=== PATIENT | female | born 1965 | race Caucasian/White ===

== ENCOUNTER 2016-12-12 12:30 | Inpatient (IN) | payer OTHER ==
[~2016-12-12] VITALS: Ht 165.1 cm; Wt 118.7 kg
[~2016-12-12 12:30] MED LIST: ACET-1311 PO; BELI1INJ; BND25X PO; CALC500C3 PO; CALC500C70 PO; COLC0.6T54 PO; FAMO20TA11 PO; FLUT0.15 NAE; FLV1 PO; KFL500 PO; LEVO1TAB35 PO; LOSA1TAB PO; MULT-513 PO; PRED-301 PO; PREDNISONE TAPER PO; SALI0.6510 NAE; SERT-234 PO; TRAM-10 PO; WARF7.5T PO
[2016-12-12 13:33] VITALS: BP 159/99; PULSE 99; TEMP 36.7; Ht 165.1 cm; Wt 118.7 kg
[2016-12-12 13:43] VITALS: BP 159/99; PULSE 99; TEMP 36.7; O2SAT 99
--- NOTE | 2016-12-12 15:18 | Medical Student: [facility] ---
Med Student History & Physical Date & Time of Service: Dec 12, 2016 at 14:43 Chief Complaint: Bilat Le Ulcers Primary Care Physician: Alisson Bender M.D. (MEDICAL) History of Present Illness Source: patient, clinic records, hospital records Mrs. Nguyen is a 51yo female with a history of systemic lupus erythematosus, protein S deficiency on long-term warfarin therapy, CKD stage 3, and obesity who presents with persistent bilateral lower leg venous stasis ulcers with new discharge and bilateral foot cellulitis L>R. She presents as a direct admission from the wound care clinic where she was seeing Dr. Devi. She has a long history of nonhealing leg ulcers though her current ulcers have persisted for approx 1.5 years--much longer than usual. In the past 2 days, her wounds have developed increased discharge and an odor which prompted her admission today. Additionally, she has developed some redness on the dorsum of both her feet. She reports feeling cold all the time. She has had diarrhea fo the past 2 days. Denies fever, lightheadedness, cp, sob, n/v, numbness, tingling. Past Medical/Surgical History PMH 1. SLE 2. Protein S deficiency 3. Hx of ITP 4. CKD stage 3 5. GERD 6. Depression 7. Morbid obesity 8. Anemia 9. Hx of DVT PSH 1. IVC filter 2. Cholecystectomy Social History Smoking Status: Never Smoker Drug Use: none Marital Status: single Housing status: lives with family Occupational Status: disabled Immunizations History of Influenza Vaccine: Yes Influenza Vaccine Date: Feb 19, 2015 History of Tetanus Vaccine?: Yes Tetanus Immunization Date: September 30, 2013 History of Pneumococcal: No Pneumococcal Date: Mar 09, 2006 History of Hepatitis B Vaccine: No Allergies Coded Allergies: Heparin (Verified Allergy, Severe, HIT R/O from last hospital admission - rather was dx w/ ITP, 09/01/16) HIT antibody screen was positive however LONA was negative per H&P Vancomycin (Verified Allergy, Intermediate, RASH, 09/01/16) Tetracycline (Verified Allergy, Mild, RASH, PRURITIS, 09/01/16) Amlodipine (Verified Allergy, Unknown, 09/01/16) Bacitracin (Verified Allergy, Unknown, 09/01/16) Doxycycline (Verified Allergy, Unknown, UNKNOWN, 09/01/16) Polymyxin B (Verified Allergy, Unknown, 09/01/16) Medications Acetaminophen (Tylenol), 650 MG PO Q6H PRN for Pain Belimumab (Benlysta) Calcium Carbonate (Tums), 500 MG PO DAILY Calcium/Vitamin D (Os-Marco A 500 Plus D), 1 TAB PO DAILY Cephalexin Monohydrate (Cephalexin), 500 MG PO Q6 Colchicine (Colchicine), 0.6 MG PO BID Diphenhydramine HCl (Diphenhydramine HCl), 25 MG PO Q6H PRN for itchiness Famotidine (Pepcid), 20 MG PO BID Fluticasone Propionate (Nasal) (Flonase Allergy Relief), 2 SPRAYS SHELLY DAILY Folic Acid (Folvite *), 1 MG PO DAILY Levofloxacin (Levaquin), 750 MG PO DAILY Losartan Potassium (Cozaar), 50 MG PO DAILY Multivitamins/Minerals (Mvi With Minerals), 1 TAB PO DAILY Prednisone (Prednisone), 5 MG PO DAILY Saline (Sylvarena Nasal [place]), 2 SPRAYS SHELLY UD PRN for nasal dryness or congestion Sertraline (Zoloft), 100 MG PO DAILY Tramadol (Ultram), 50 MG PO Q8H PRN for Pain Warfarin Sodium (Coumadin), 1 TAB PO UD [Prednisone Taper], 50 MG PO DIRECTED Review of Systems Constitutional: + chills, No fever, No weakness Eyes: No eye pain, No diplopia ENT: No sore throat, No trouble swallowing Respiratory: No cough, No wheezing, No shortness of breath Cardiovascular: No chest pain, No palpitations Abdomen: + diarrhea, No pain, No nausea, No vomiting Musculoskeletal: + swelling, + calf pain Genitourinary - Female: No dysuria, No urinary frequency, No urinary urgency, No urinary incontinence Neurologic: No weakness, No numbness/tingling Integumentary: + new/changing skin lesions, No bleeding Physical Exam Vital Signs (24 Hours) Date Time Temp Pulse Resp B/P (MAP) Pulse Ox O2 Delivery O2 Flow Rate FiO2 12/12/16 13:43 36.7 99 20 159/99 (119) 99 Room Air 12/12/16 13:33 36.7 99 20 159/99 Room Air General Appearance: + mild distress (laying under multiple blankets ), + obese Head: normocephalic, atraumatic Eyes: normal inspection, PERRL, EOMI ENT: hearing grossly normal, pharynx normal, + pertinent finding (poor dentition) Neck: supple, no adenopathy, no carotid bruits Respiratory/Chest: lungs clear, normal breath sounds, no respiratory distress, no accessory muscle use Cardiovascular: regular rate, rhythm, no gallop, no murmur, normal peripheral pulses Abdomen/GI: normal bowel sounds, non tender, soft Extremities/Musculoskelatal: normal range of motion, + calf tenderness, + pedal edema Neurologic/Psych: crystal mounter II-XII nml as tested, no motor/sensory deficits, alert, normal mood/affect, oriented x 3 Skin: + pertinent finding (BLE tubigrips over leg ulcers, L>R red reticular coloration on dorsum of feet, violaceous reticular pattern bilateral toes) Impression Assessment and Plan This is a 51yo female with a history of systemic lupus erythematosus, protein S deficiency on long-term warfarin therapy, CKD stage 3, and obesity who presents with persistent bilateral lower leg venous stasis ulcers with new discharge and bilateral foot cellulitis L>R. She will need IV antibiotics and continued monitoring of her medical conditions. Plan: Precautions: Fall, bleeding 1. bilateral lower extremity nonhealing venous stasis ulcers and new cellulitis in the context of SLE -admit to med/surg -OOB as tolerated -elevate feet -vitals qshift -renal dosing for IV vancomycin w/ benadryll pretreatment -diphenhydramine 25mg PO q6h prn -continue levofloxacin 750mg PO daily -AM CBC w/ diff -AM BMP -AM renal profile -vancomycin trough level 12/14/16 -consult ID -PRN tramadol 50mg PO q8h prn moderate pain -PRN tylenol 650mg PO q6h prn mild pain 2. SLE -belimumab 120mg ing daily -prednisone 5mg PO daily -losartan potassium 50mg PO daily 3. Protein S deficiency -Warfarin 7.5mg PO daily -AM PT/INR 4. Depression -sertraline 100mg PO daily 5. FEN/GI -folic acid 1mg PO daily -calcium/vitamin D -famotidine 20mg PO BID -multivitamin 6. DVT prophylaxis -Warfarin as above 7. Disposition -Location: home -Date: TBD Level of Care Med/Surg Advanced Directives Existing Living Will: No Existing Power of Outside Sales Manager: No Resuscitation Status FULL RESUSCITATION DVT Prophylaxis warfarin (Coumadin) Social Service Consult None Apply
[2016-12-12 15:59] VITALS: BP 165/98; PULSE 103; TEMP 36.8; O2SAT 98
[2016-12-12] MEDS ORDERED: ONDANSETRON INJ 2 MG/ML 2 ML VIAL IV PRN (17:15)
[2016-12-12] MEDS ORDERED: MAGNESIUM HYDROXIDE SUSP 30 ML UDC PO PRN (17:15)
[2016-12-12] MEDS ORDERED: ALUMINUM/MAGNESIUM/SIMETH (MAALOX MAX) 30 ML UDC PO PRN (17:15)
[2016-12-12] MEDS ORDERED: ACETAMINOPHEN 325 MG TAB PO PRN (17:15)
[2016-12-12] MEDS: TRAMADOL HCL 50 MG TAB PO PRN (17:32)
--- NOTE | 2016-12-12 18:00 | History and Physical ---
History & Physical Date & Time of Service: Dec 12, 2016 at 17:52 Chief Complaint: Bilat Le Ulcers Primary Care Physician: Alisson Bender M.D. (MEDICAL) History of Present Illness Source: patient, clinic records, hospital records This patient is a 51-year-old female with a history of lupus, chronic venous stasis and DVT that was directly admitted to the hospital from wound care office today with complaints of likely cellulitis of the legs. The patient has chronic wounds on her legs. She follows with wound care and infectious disease regularly. She noticed a foul smelling drainage from her legs approximately 1 week ago. She has been on Levaquin and Keflex with no relief. She has felt feverish with chills over the last few days. She denies any other associated symptoms such as headache, nausea or joint pain. Past Medical/Surgical History Medical Problems: (1) Anemia Status: Chronic (2) Benign hypertension Status: Chronic (3) Cellulitis Permanent Comment: b/L LOWER EXTEMITIES Status: Chronic (4) CKD (chronic kidney disease), stage III Status: Chronic (5) Depression Status: Chronic (6) GERD (gastroesophageal reflux disease) Status: Chronic (7) History of - deep vein thrombosis Permanent Comment: on chronic anticoagulation therapy, s/p IVC filter Status: Resolved (8) History of - pulmonary embolus Permanent Comment: On chronic anticoagulation therapy Status: Resolved (9) History of idiopathic thrombocytopenic purpura Status: Chronic (10) History of MRSA Status: Resolved (11) Hypercoagulable state Permanent Comment: protein C deficiency, positive phospholipid AB syndrome, positive lupus 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 Status: Chronic (12) 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: 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 (13) Morbid obesity Status: Chronic (14) Systemic lupus Status: Chronic (15) Systemic lupus erythematosus Status: Chronic (16) Venous stasis ulcers Permanent Comment: with recurrent cellulitis Status: Chronic Surgical Problems: (1) H/O exploratory laparotomy Status: Chronic (2) H/O hernia repair Status: Chronic (3) History of cholecystectomy Status: Chronic (4) S/P appendectomy Status: Chronic (5) S/P insertion of IVC (inferior vena caval) filter Status: Chronic (6) S/p DELMAR with right salpingo-oophorectomy Status: Chronic (7) Status post resection pelvic mass (mucinous cystadenoma ovary) Permanent Comment: [facility] [place] 02/01/14 Status: Chronic Family History Blood clots MOTHER (DVT) Diabetes mellitus FH: cancer MOTHER (colon CA) Heart disease Hypertension Social History Smoking Status: Never Smoker Smokeless Tobacco Use: No Alcohol Use: none Drug Use: none Marital Status: single Housing status: lives with family Occupational Status: disabled Immunizations History of Influenza Vaccine: Yes Influenza Vaccine Date: Feb 19, 2015 History of Tetanus Vaccine?: Yes Tetanus Immunization Date: September 30, 2013 History of Pneumococcal: No Pneumococcal Date: Mar 09, 2006 History of Hepatitis B Vaccine: No Multi-Drug Resistant Organisms History of MDRO: Yes Type of MDRO: MRSA Allergies Coded Allergies: Heparin (Verified Allergy, Severe, HIT R/O from last hospital admission - rather was dx w/ ITP, 09/01/16) HIT antibody screen was positive however LONA was negative per H&P Vancomycin (Verified Allergy, Intermediate, RASH, 09/01/16) Tetracycline (Verified Allergy, Mild, RASH, PRURITIS, 09/01/16) Amlodipine (Verified Allergy, Unknown, 09/01/16) Bacitracin (Verified Allergy, Unknown, 09/01/16) Doxycycline (Verified Allergy, Unknown, UNKNOWN, 09/01/16) Polymyxin B (Verified Allergy, Unknown, 09/01/16) Home Medications Scheduled Calcium Carbonate (Tums), 500 MG PO DAILY Calcium/Vitamin D (Os-Marco A 500 Plus D), 1 TAB PO DAILY Cephalexin Monohydrate (Cephalexin), 500 MG PO Q6 Colchicine (Colchicine), 0.6 MG PO BID Famotidine (Pepcid), 20 MG PO BID Fluticasone Propionate (Nasal) (Flonase Allergy Relief), 2 SPRAYS SHELLY DAILY Folic Acid (Folvite *), 1 MG PO DAILY Levofloxacin (Levaquin), 750 MG PO DAILY Losartan Potassium (Cozaar), 50 MG PO DAILY Multivitamins/Minerals (Mvi With Minerals), 1 TAB PO DAILY Prednisone (Prednisone), 5 MG PO DAILY Sertraline (Zoloft), 100 MG PO DAILY Warfarin Sodium (Coumadin), 1 TAB PO UD [Prednisone Taper], 50 MG PO DIRECTED Scheduled PRN Acetaminophen (Tylenol), 650 MG PO Q6H PRN for Pain Diphenhydramine HCl (Diphenhydramine HCl), 25 MG PO Q6H PRN for itchiness Saline (Pinal Nasal [place]), 2 SPRAYS SHELLY UD PRN for nasal dryness or congestion Tramadol (Ultram), 50 MG PO Q8H PRN for Pain Miscellaneous Medications Belimumab (Benlysta) Review of Systems 10 system review performed and negative unless noted in HPI or below Physical Exam Vital Signs Date Time Temp Pulse Resp B/P (MAP) Pulse Ox O2 Delivery O2 Flow Rate FiO2 12/12/16 16:00 Room Air 12/12/16 15:59 36.8 103 20 165/98 (120) 98 Room Air 12/12/16 13:43 36.7 99 20 159/99 (119) 99 Room Air 12/12/16 13:33 36.7 99 20 159/99 Room Air General Appearance: + mild distress (tearful) Head: normocephalic Eyes: EOMI Neck: no JVD Respiratory/Chest: + pertinent finding (few crackles at the left base.) Cardiovascular: regular rate, rhythm Abdomen/GI: normal bowel sounds, non tender, soft Extremities/Musculoskelatal: + pertinent finding (legs have Raul bandage in place. DP pulse +2 bilaterally.) Neurologic/Psych: no motor/sensory deficits, oriented x 3 Skin: warm/dry Diagnostics Laboratory Results Results Past 24 Hours Test 12/12/16 17:05 Range/Units Impression Assessment and Plan 51-year-old female with a history of chronic venous stasis and frequent bouts of cellulitis directly admitted to the hospital today from the wound care clinic with cellulitis failing outpatient therapy on Levaquin and Keflex. Bilateral lower extremity cellulitis/wound infection -Admit to medical floor -Begin broad-spectrum antibiotics with daptomycin and Zosyn -Wound care and ID consult -Follow CBC -Since she has been on ABX, I do not think blood cx will have anything to add to the workup. -Ultram for mild to moderate pain. Morphine for severe pain. History of SLE/protein S deficiency/DVT/PE -Continue outpatient dosing of warfarin 7.5 mg daily -Follow PT/INR especially with the use of antibiotics Chronic kidney disease stage III -Avoid nephrotoxic agents and follow PRP GERD -Continue Pepcid 20 mg twice daily Hypertension -Continue Cozaar 50 mg daily -Hydralazine 10 mg IV q 6 hr PRN depression -Continue Zoloft 100 mg daily DVT prophylaxis -Warfarin -No teds/SCDs secondary cellulitis CODE STATUS -LEVEL I FULL CODE Attending Addendum: I have physically seen and examined this patient, have directed the physician assistants medical activities, and agree with the H&P as noted above with the following exceptions: NONE The patient is awake, well-developed and adequately nourished, alert and oriented 3, normocephalic and atraumatic, lying in bed and in no acute distress. HEENT--PERRL, EOMI, mucous membranes and oropharynx dry. Neck--supple, no JVD or bruits, thyroid normal, trachea midline, no adenopathy. Heart--normal S1 and S2, no extra beats, no murmurs, rubs or gallops. Lungs--clear bilaterally with good air movement, no respiratory distress, no accessory muscle use. Abdomen--normal bowel sounds and soft, nontender and nondistended, no hernias or masses, no organomegaly. Extremities/Dermatologic--Raul Wrap bilateral lower extremities changed this a.m. at Wound Care Clinic. Pitting edema bilaterally. Neurologic--cranial nerves II through XII grossly intact, motor and sensory examination normal. Rheumatologic--normal range of motion, nontender, muscles and joints. Psychiatric--normal affect. Assessment and Plan: 1. Bilateral lower extremity venous stasis ulcers-- Admitted to the medical floor. Place on daptomycin IV and Zosyn IV. Consult Dr. Devi from Wound Care Clinic and Dr. Krishnan from Infectious Disease. Monitor fluid status. Lasix as needed. 2. SLE/protein S deficiency/DVT/PE-- Continue current dosing of warfarin 7.5 mg by mouth daily. Follow-up PT/INR closely as patient will be on IV antibiotics. Level of Care Med/Surg Advanced Directives Existing Advance Directive: No Existing Living Will: No Existing Power of Metrologist: No Resuscitation Status FULL RESUSCITATION VTE Prophylaxis VTE Risk Assessment Done? Y/N: Yes Risk Level: Low Given or contraindicated: Warfarin (Coumadin)
[2016-12-12] MEDS ORDERED: DAPTOmycin IV 500 MG in SODIUM CHLORIDE 0.9% 50ML 50 ML IV SCH (19:00)
[2016-12-12 19:09] LABS: BASO % 0.3 %; BASO ABS # 0.02 K/uL (0-0.2); COMPLETE YES; EOS % 0.1 %; HEMATOCRIT 38.3 % (37-47); IG% 0.1 %; LYMPH % 19.4 %; LYMPH ABS # 1.35 K/uL (1.2-3.4); MEAN CELL VOLUME 83.3 fL (80-100); MEAN CORPUSCULAR HEMOGLOBIN 27.2 pg (25-34); MEAN CORPUSCULAR HGB CONC 32.6 g/dl (32-36); MEAN PLATELET VOLUME 8.8 fL (7.4-10.4); MONO % 8.9 %; NEUT % 71.2 %; PLATELET COUNT 276 K/uL (130-400); WHITE BLOOD COUNT 6.97 K/uL (4.8-10.8)
[2016-12-12 19:20] LABS: PROTHROMBIN TIME (PATIENT) 11.1 SECONDS (9.0-12.0)
[2016-12-12] MEDS ORDERED: WARFARIN SOD 7.5 MG TAB PO ONE (19:45)
[2016-12-12] MEDS ORDERED: PIPERACILL/TAZOBAC CONSULT ACTIVE PRN (19:45)
[2016-12-12 19:52] LABS: ALB/GLOB RATIO 0.8 (0.9-2); BUN/CREATININE RATIO 13.6 (10-20); CALCIUM 9.4 mg/dl (8.5-10.1); CREATININE 1.2 mg/dl (0.60-1.20); POTASSIUM 4.3 mmol/L (3.5-5.1)
[2016-12-12] MEDS ORDERED: PIPERACILL/TAZOBAC IV 4.5 GM in DEXTROSE 5% 100ML IV ONE (20:00)
[2016-12-12] MEDS: COLCHICINE 0.6 MG TAB PO SCH (20:09)
[2016-12-12] MEDS: FAMOTIDINE 20 MG TAB PO SCH (20:09)
[2016-12-12] MEDS ORDERED: PIPERACILL/TAZOBAC IV 3.375 GM in DEXTROSE 5% 100ML 100 ML IV SCH (22:00)
[2016-12-12 23:04] VITALS: BP 154/89; PULSE 93; TEMP 37.1; O2SAT 99
[2016-12-13] MEDS: PIPERACILL/TAZOBAC IV 4.5 GM in DEXTROSE 5% 100ML IV SCH ×3 (01:55→17:42)
[2016-12-13] MEDS: TRAMADOL HCL 50 MG TAB PO PRN ×2 (02:04→12:39)
[2016-12-13 07:12] LABS: PROTHROMBIN TIME (PATIENT) 11.1 SECONDS (9.0-12.0)
[2016-12-13 07:28] LABS: BUN/CREATININE RATIO 16.4 (10-20); CREATININE 0.97 mg/dl (0.60-1.20); POTASSIUM 4.3 mmol/L (3.5-5.1)
[2016-12-13 07:31] VITALS: BP 118/81; PULSE 89; TEMP 36.7; O2SAT 96
[2016-12-13 07:40] LABS: BASO % 0.5 %; BASO ABS # 0.02 K/uL (0-0.2); COMPLETE YES; EOS % 0.2 %; HEMATOCRIT 36.3 % (37-47); IG% 1.2 %; LYMPH % 12.4 %; MEAN CELL VOLUME 82.9 fL (80-100); MEAN CORPUSCULAR HEMOGLOBIN 26.3 pg (25-34); MEAN CORPUSCULAR HGB CONC 31.7 g/dl (32-36); MONO % 11.4 %; NEUT % 74.3 %; PLATELET COUNT 229 K/uL (130-400); RED BLOOD COUNT 4.38 M/uL (4.2-5.4); WHITE BLOOD COUNT 4.03 K/uL (4.8-10.8)
[2016-12-13] MEDS: CEROVITE ADV FORMULA TAB PO SCH (08:19)
[2016-12-13] MEDS: LOSARTAN POTASSIUM 50 MG TAB PO SCH (08:19)
[2016-12-13] MEDS: SERTRALINE HCL 100 MG TAB PO SCH (08:19)
[2016-12-13] MEDS: COLCHICINE 0.6 MG TAB PO SCH ×2 (08:19→19:45)
[2016-12-13] MEDS: FAMOTIDINE 20 MG TAB PO SCH ×2 (08:20→19:45)
[2016-12-13] MEDS: MoRPHine SULFATE 4 MG/ML 1 ML CARP\\VIAL IV PRN ×2 (08:25→19:53)
--- NOTE | 2016-12-13 09:41 | Progress Note ---
Progress Note Date of Service Dec 13, 2016. Progress Note Id Consult Dictated # [id number] A/P: 1. LE wounds, chronic -continue abx, suggest wound culture -continue wound care -will follow, thank you
--- NOTE | 2016-12-13 10:10 | INFECT. DISEASE CONSULTATION ---
DATE OF CONSULTATION: 12/13/2016 DATE OF CONSULTATION: 12/13/2016 REQUESTING PHYSICIAN: Dr. Larsen. HISTORY OF PRESENT ILLNESS: This is a 51-year-old female who is seen regularly at the wound center by infectious diseases who was admitted from the wound center yesterday due to worsening lower extremity wounds. Per the H&P she has recently been on Levaquin and Keflex with little response. She states she noticed increased weeping and pain in her legs. For this reason, she was sent to the Emergency Room. She was started on Zosyn and daptomycin in the ER and appears to be tolerating these well. She denies any fevers or chills at home. She has been afebrile since admission. White blood cell count is normal. No micro has been obtained at this admission. On my examination, she is without complaint. She denies cough, chest pain, shortness of breath, nausea, vomiting, diarrhea or abdominal pain. She has no urinary complaints. She does admit to increased weeping in the legs. She did just have pain medication prior to my examination. All remaining review of systems are reviewed and are unremarkable. PAST MEDICAL HISTORY: Significant for anemia, hypertension, lower extremity wounds, chronic kidney disease, depression, GERD, DVT, PE, morbid obesity, lupus. PAST SURGICAL HISTORY: Significant for ex-lap hernia repair, cholecystectomy, appendectomy, IVC filter placement, hysterectomy with right oophorectomy, pelvic mass removal. FAMILY HISTORY: Noncontributory. SOCIAL HISTORY: Negative for tobacco use, alcohol use or drug use. She denies any recent sick contacts. ALLERGIES: SHE HAS MULTIPLE ALLERGIES INCLUDING HEPARIN, VANCOMYCIN, TETRACYCLINE, AMLODIPINE, BACITRACIN, DOXYCYCLINE, POLYMYXIN B. CURRENT MEDICATIONS: Include Coumadin, Benadryl, folic acid, Cozaar, multivitamins, prednisone, Zoloft, Zosyn, colchicine, Pepcid, daptomycin, morphine, ultram, Tylenol, Maalox, milk of magnesia and Zofran. PHYSICAL EXAMINATION: VITAL SIGNS: She is afebrile, pulse 89, respiratory rate is 20, blood pressure is 118/81, oxygen saturation is 96-99% on room air. GENERAL: She is awake, alert and oriented x3. She is in no acute distress. HEAD, EYES, EARS, NOSE, AND THROAT: Mucous membranes are moist. Extraocular muscles are intact. Dentition is poor. HEART: Regular. LUNGS: Clear bilaterally. ABDOMEN: Soft, nontender, nondistended. EXTREMITIES: Lower extremity dressings do have weeping. There is no bleeding or purulent drainage. There is no surrounding erythema or warmth. LABORATORY STUDIES: CBC reveals a white blood cell count of 4.0, hemoglobin 11.5 and platelets are 229. Chemistry panel reveals a sodium of 137, potassium 4.3, chloride 108, bicarb 23, BUN 16, creatinine 0.9, glucose is 91. There is no imaging or micro to review. ASSESSMENT AND PLAN: Lower extremity wounds secondary to lupus and/or nonhealing ulcerations. She will be continued on intravenous antibiotics. A wound culture should be obtained. We will follow along with you. Thank you for this consultation.
[2016-12-13 15:36] VITALS: BP 110/73; PULSE 82; TEMP 36.8; O2SAT 97
[2016-12-13] MEDS: WARFARIN PO SCH ×2 (16:16)
[2016-12-13] MEDS: DAPTOmycin IV 500 MG in SODIUM CHLORIDE 0.9% 50ML 50 ML IV SCH (16:16)
--- NOTE | 2016-12-13 17:52 | Progress Note ---
Internal Med Progress Note Date of Service: Dec 13, 2016. Provider Documentation: SUBJECTIVE: sitting up finishing dinner legs are mildly painful , but tolerable at present no fever or chills OBJECTIVE: Vital Signs-as noted below Exam: General-no sign of distress Eyes-sclera non icteric ENT-NAD Neck-no JVD Lungs-CTA Heart-regular S1/S2 Abdomen-soft, non tender Extremities-bilateral lower ext non healing infected wound , bandaged Neuro-no focal deficit Lab data as noted below. ASSESSMENT & PLAN: Bilateral lower extremity cellulitis/wound infection -sent form wound clinic has chronic non healing wound wound culture obtained at the clinic on 12/12/16 : rt lower ext : gram negative bacilli , staph isolation and sensitivity pending prior wound culture : 10/02/16 Serratia Marcescens -sensitive to Cipro/Invanz /Zosyn Staph MSSA -sensitive to Vanco /Daptomycin /Bactrim resistant to Clindamycin -cont broad-spectrum antibiotics with daptomycin and Zosyn pending final culture report -appreciate ID consult -Wound care consulted History of SLE/protein S deficiency/DVT/PE -Continue outpatient dosing of warfarin 7.5 mg daily -Follow PT/INR Chronic kidney disease stage III -Avoid nephrotoxic agents and follow PRP GERD -Continue Pepcid 20 mg twice daily Hypertension -Continue Cozaar 50 mg daily -Hydralazine 10 mg IV q 6 hr PRN depression -Continue Zoloft 100 mg daily DVT prophylaxis -Warfarin -No teds/SCDs secondary cellulitis CODE STATUS -LEVEL I FULL CODE DISPOSITION discharge home when medically stable will need continued home health nurse for wound care continued follow up at with wound clinic medicine follow up with Dr Bender Vital Signs: Date Time Temp Pulse Resp B/P (MAP) Pulse Ox O2 Delivery O2 Flow Rate FiO2 12/13/16 15:36 36.8 82 18 110/73 (85) 97 Room Air 12/13/16 15:31 Room Air 12/13/16 08:08 Room Air 12/13/16 07:31 36.7 89 20 118/81 (93) 96 Room Air 12/13/16 00:00 Room Air 12/12/16 23:04 37.1 93 20 154/89 (110) 99 Room Air Lab Results: Results Past 24 Hours Test 12/12/16 18:56 12/13/16 06:47 Range/Units White Blood Count 6.97 4.03 4.8-10.8 K/uL Red Blood Count 4.60 4.38 4.2-5.4 M/uL Hemoglobin 12.5 11.5 12.0-16.0 g/dL Hematocrit 38.3 36.3 37-47 % Mean Corpuscular Volume 83.3 82.9 80-100 fL Mean Corpuscular Hemoglobin 27.2 26.3 25-34 pg Mean Corpuscular Hemoglobin Concent 32.6 31.7 32-36 g/dl Platelet Count 276 229 130-400 K/uL Mean Platelet Volume 8.8 9.0 7.4-10.4 fL Neutrophils (%) (Auto) 71.2 74.3 % Lymphocytes (%) (Auto) 19.4 12.4 % Monocytes (%) (Auto) 8.9 11.4 % Eosinophils (%) (Auto) 0.1 0.2 % Basophils (%) (Auto) 0.3 0.5 % Neutrophils # (Auto) 4.96 2.99 1.4-6.5 K/uL Lymphocytes # (Auto) 1.35 0.50 1.2-3.4 K/uL Monocytes # (Auto) 0.62 0.46 0.11-0.59 K/uL Eosinophils # (Auto) 0.01 0.01 0-0.5 K/uL Basophils # (Auto) 0.02 0.02 0-0.2 K/uL RDW Standard Deviation 48.7 48.4 36.4-46.3 fL RDW Coefficient of Variation 16.1 15.9 11.5-14.5 % Immature Granulocyte % (Auto) 0.1 1.2 % Immature Granulocyte # (Auto) 0.01 0.05 0.00-0.02 K/uL Prothrombin Time 11.1 11.1 9.0-12.0 SECONDS Prothromb Time International Ratio 1.0 1.0 0.9-1.1 Sodium Level 137 137 136-145 mmol/L Potassium Level 4.3 4.3 3.5-5.1 mmol/L Chloride Level 107 108 98-107 mmol/L Carbon Dioxide Level 23 23 21-32 mmol/L Anion Gap 7.0 6.0 3-11 mmol/L Blood Urea Nitrogen 16 16 7-18 mg/dl Creatinine 1.20 0.97 0.60-1.20 mg/dl Est Creatinine Clear Calc Drug Dose 73.1 90.5 ml/min Estimated GFR () 61.5 79.5 Estimated GFR (Non- 53.0 68.6 BUN/Creatinine Ratio 13.6 16.4 10-20 Random Glucose 138 91 70-99 mg/dl Calcium Level 9.4 9.0 8.5-10.1 mg/dl Total Bilirubin 0.3 0.2-1 mg/dl Aspartate Amino Transf (AST/SGOT) 11 15-37 U/L Alanine Aminotransferase (ALT/SGPT) 22 12-78 U/L Alkaline Phosphatase 72 45-117 U/L Total Protein 7.6 6.4-8.2 gm/dl Albumin 3.3 3.4-5.0 gm/dl Globulin 4.3 2.5-4.0 gm/dl Albumin/Globulin Ratio 0.8 0.9-2
[2016-12-13 23:30] VITALS: BP 112/74; PULSE 82; TEMP 36.9; O2SAT 97
[2016-12-14] MEDS: TRAMADOL HCL 50 MG TAB PO PRN ×2 (01:34→15:07)
[2016-12-14] MEDS: PIPERACILL/TAZOBAC IV 4.5 GM in DEXTROSE 5% 100ML IV SCH ×3 (01:35→17:48)
[2016-12-14] MEDS: MoRPHine SULFATE 4 MG/ML 1 ML CARP\\VIAL IV PRN ×3 (06:19→20:55)
[2016-12-14 06:24] LABS: BASO % 0.7 %; BASO ABS # 0.02 K/uL (0-0.2); COMPLETE YES; EOS % 0.3 %; HEMATOCRIT 36.7 % (37-47); IG% 0.3 %; LYMPH % 34.4 %; LYMPH ABS # 1.01 K/uL (1.2-3.4); MEAN CELL VOLUME 84.2 fL (80-100); MEAN CORPUSCULAR HEMOGLOBIN 26.4 pg (25-34); MEAN CORPUSCULAR HGB CONC 31.3 g/dl (32-36); MEAN PLATELET VOLUME 8.8 fL (7.4-10.4); NEUT % 45.3 %; PLATELET COUNT 271 K/uL (130-400); RED BLOOD COUNT 4.36 M/uL (4.2-5.4); WHITE BLOOD COUNT 2.94 K/uL (4.8-10.8)
[2016-12-14 06:32] LABS: INR 1.1 (0.9-1.1); PROTHROMBIN TIME (PATIENT) 11.8 SECONDS (9.0-12.0)
[2016-12-14 06:59] LABS: BUN/CREATININE RATIO 16.4 (10-20); CALCIUM 9.2 mg/dl (8.5-10.1); POTASSIUM 4.2 mmol/L (3.5-5.1)
[2016-12-14 07:58] VITALS: BP 125/85; PULSE 78; TEMP 36.7; O2SAT 95
[2016-12-14] MEDS: CEROVITE ADV FORMULA TAB PO SCH (08:16)
[2016-12-14] MEDS: SERTRALINE HCL 100 MG TAB PO SCH (08:16)
[2016-12-14] MEDS: LOSARTAN POTASSIUM 50 MG TAB PO SCH (08:17)
[2016-12-14] MEDS: COLCHICINE 0.6 MG TAB PO SCH ×2 (08:17→20:48)
[2016-12-14] MEDS: FAMOTIDINE 20 MG TAB PO SCH ×2 (08:17→20:48)
--- NOTE | 2016-12-14 15:46 | Progress Note ---
Medicine Progress Note Date & Time of Visit: Dec 14, 2016 at 15:31. Subjective Pt was seen and examined Lying in bed with no distress Pt said that the pain in her LE seem to improve Denies any chest pain, palpitation, dizziness and SOB Objective Last 8 Hrs Date Time Temp Pulse Resp B/P (MAP) Pulse Ox O2 Delivery O2 Flow Rate FiO2 12/14/16 08:29 Room Air 12/14/16 07:58 36.7 78 20 125/85 (98) 95 Physical Exam: General- No acute distress Head- atraumatic Eyes- PERRL, EOMI ENT- oropharynx clear Neck- supple, no JVD Lungs- clear to auscultation Heart- regular rhythm; no murmur Abdomen- normal bowel sounds, soft Extremities- no calf tenderness, legs wrapped Neuro- alert, oriented x 3; PERRL, EOMI; no facial palsy Skin- warm & dry Laboratory Results: Last 24 Hours Test 12/14/16 05:59 White Blood Count 2.94 K/uL Red Blood Count 4.36 M/uL Hemoglobin 11.5 g/dL Hematocrit 36.7 % Mean Corpuscular Volume 84.2 fL Mean Corpuscular Hemoglobin 26.4 pg Mean Corpuscular Hemoglobin Concent 31.3 g/dl Platelet Count 271 K/uL Mean Platelet Volume 8.8 fL Neutrophils (%) (Auto) 45.3 % Lymphocytes (%) (Auto) 34.4 % Monocytes (%) (Auto) 19.0 % Eosinophils (%) (Auto) 0.3 % Basophils (%) (Auto) 0.7 % Neutrophils # (Auto) 1.33 K/uL Lymphocytes # (Auto) 1.01 K/uL Monocytes # (Auto) 0.56 K/uL Eosinophils # (Auto) 0.01 K/uL Basophils # (Auto) 0.02 K/uL RDW Standard Deviation 48.9 fL RDW Coefficient of Variation 16.0 % Immature Granulocyte % (Auto) 0.3 % Immature Granulocyte # (Auto) 0.01 K/uL Prothrombin Time 11.8 SECONDS Prothromb Time International Ratio 1.1 Sodium Level 138 mmol/L Potassium Level 4.2 mmol/L Chloride Level 107 mmol/L Carbon Dioxide Level 24 mmol/L Anion Gap 7.0 mmol/L Blood Urea Nitrogen 16 mg/dl Creatinine 1.00 mg/dl Est Creatinine Clear Calc Drug Dose 87.7 ml/min Estimated GFR () 76.6 Estimated GFR (Non- 66.1 BUN/Creatinine Ratio 16.4 Random Glucose 87 mg/dl Calcium Level 9.2 mg/dl Assessment & Plan Bilateral lower extremity cellulitis/wound infection was sent from wound clinic failed outpatient management with Keflex and Levaquin wound culture obtained at the clinic on 12/12/16 right lower ext grew gram negative bacilli , staph Sensitivity pending Continue broad-spectrum antibiotics with daptomycin and Zosyn Appreciate ID consult, recommended to continue current abx treatment Wound care consulted History of SLE/protein S deficiency/DVT/PE Continue outpatient dosing of warfarin 7.5 mg daily INR 1.1 monitor INR Chronic kidney disease stage III stable Avoid nephrotoxic agents and follow PRP GERD Continue Pepcid 20 mg twice daily Depression Continue Zoloft Stable Hypertension Continue Cozaar 50 mg daily Hydralazine 10 mg IV q 6 hr Stable DVT prophylaxis Warfarin No teds/SCDs secondary cellulitis Consider heparin subq until INR is therapeutic But pt is allergy with heparin CODE STATUS LEVEL I FULL CODE DISPOSITION discharge home when medically stable On IV abx continued follow up with wound are clinic Consultants: ID Wound care Current Inpatient Medications: Current Inpatient Medications Medications (Trade) Dose Ordered Sig/Tiara Route Start Time Stop Time Status Last Admin Dose Admin Morphine Sulfate (MoRPHine SULFATE INJ) 4 mg Q2H PRN IV 12/12/16 17:15 12/26/16 17:14 12/14/16 09:50 4 MG Colchicine (Colchicine Tab) 0.6 mg BID PO 12/12/16 20:00 01/11/17 19:59 12/14/16 08:17 0.6 MG Famotidine (Pepcid Tab) 20 mg BID PO 12/12/16 20:00 01/11/17 19:59 12/14/16 08:17 20 MG Folic Acid (Folvite Tab) 1 mg DAILY PO 12/13/16 08:00 01/12/17 07:59 12/14/16 08:17 1 MG Losartan Potassium (coZAAR TAB) 50 mg DAILY PO 12/13/16 08:00 01/12/17 07:59 12/14/16 08:17 50 MG Multivitamins/ Minerals (Multivitamin W/ Minerals Tab) 1 tab DAILY PO 12/13/16 08:00 01/12/17 07:59 12/14/16 08:16 1 TAB Prednisone (PredniSONE TAB) 5 mg DAILY PO 12/13/16 08:00 01/12/17 07:59 12/14/16 08:16 5 MG Sertraline HCl (Zoloft Tab) 100 mg DAILY PO 12/13/16 08:00 01/12/17 07:59 12/14/16 08:16 100 MG Tramadol HCl (Ultram Tab) 50 mg Q8H PRN PO 12/12/16 17:15 01/11/17 17:14 12/14/16 15:07 50 MG Warfarin Sodium (Coumadin Tab) 7.5 mg Q2D@1600 PO 12/14/16 16:00 01/13/17 15:59 Acetaminophen (Tylenol Tab) 650 mg Q4H PRN PO 12/12/16 17:15 01/11/17 17:14 12/12/16 20:09 650 MG Al Hydrox/Mg Hydrox/Simethicone (Maalox Max Susp) 15 ml Q4H PRN PO 12/12/16 17:15 01/11/17 17:14 Magnesium Hydroxide (Milk Of Magnesia Susp) 30 ml Q6H PRN PO 12/12/16 17:15 01/11/17 17:14 Ondansetron HCl (Zofran Inj) 4 mg Q6H PRN IV 12/12/16 17:15 01/11/17 17:14 Warfarin Sodium (Coumadin Tab) 3.25 mg Q2D@1600 PO 12/13/16 16:00 01/12/17 15:59 12/13/16 16:16 3.25 MG Piperacillin Sod/ Tazobactam Sod (Consult) 1 ea UD PRN N/A 12/12/16 19:45 01/11/17 19:44 Piperacillin Sod/ Tazobactam Sod 4.5 gm/Dextrose 120 ml @ 30 mls/hr Q8H IV 12/13/16 02:00 12/23/16 01:59 12/14/16 09:49 30 MLS/HR Diphenhydramine HCl (Benadryl Cap) 25 mg Q6 PRN PO 12/13/16 08:15 01/12/17 08:14 12/14/16 08:17 25 MG Daptomycin 500 mg/ Sodium Chloride 60 ml @ 100 mls/hr DAILY@1600 IV 12/13/16 16:00 12/22/16 15:59 12/13/16 16:16 100 MLS/HR
[2016-12-14] MEDS: DAPTOmycin IV 500 MG in SODIUM CHLORIDE 0.9% 50ML 50 ML IV SCH (16:13)
[2016-12-14] MEDS: WARFARIN SOD 7.5 MG TAB PO SCH (16:14)
[2016-12-14 16:30] VITALS: BP 125/83; PULSE 70; TEMP 36.7; O2SAT 95
[2016-12-15] VITALS: BP 120/79; PULSE 72; TEMP 36.7; O2SAT 96
[2016-12-15] MEDS: PIPERACILL/TAZOBAC IV 4.5 GM in DEXTROSE 5% 100ML IV SCH ×2 (02:19→09:24)
[2016-12-15] MEDS: TRAMADOL HCL 50 MG TAB PO PRN ×2 (02:22→18:56)
[2016-12-15 06:57] LABS: BASO % 0.7 %; BASO ABS # 0.02 K/uL (0-0.2); COMPLETE YES; HEMATOCRIT 35.6 % (37-47); IG% 0.7 %; LYMPH % 35.4 %; LYMPH ABS # 1.02 K/uL (1.2-3.4); MEAN CELL VOLUME 84.4 fL (80-100); MEAN CORPUSCULAR HEMOGLOBIN 26.8 pg (25-34); MEAN CORPUSCULAR HGB CONC 31.7 g/dl (32-36); MEAN PLATELET VOLUME 8.5 fL (7.4-10.4); NEUT % 38.2 %; PLATELET COUNT 275 K/uL (130-400); RED BLOOD COUNT 4.22 M/uL (4.2-5.4); WHITE BLOOD COUNT 2.88 K/uL (4.8-10.8)
[2016-12-15 07:04] LABS: INR 1.1 (0.9-1.1); PROTHROMBIN TIME (PATIENT) 12.3 SECONDS (9.0-12.0)
[2016-12-15 07:15] VITALS: BP 129/85; PULSE 77; TEMP 36.7; O2SAT 96
[2016-12-15] MEDS: MoRPHine SULFATE 4 MG/ML 1 ML CARP\\VIAL IV PRN ×3 (08:07→14:41)
[2016-12-15] MEDS: COLCHICINE 0.6 MG TAB PO SCH ×2 (08:07→20:55)
[2016-12-15] MEDS: CEROVITE ADV FORMULA TAB PO SCH (08:07)
[2016-12-15] MEDS: SERTRALINE HCL 100 MG TAB PO SCH (08:07)
[2016-12-15] MEDS: LOSARTAN POTASSIUM 50 MG TAB PO SCH (08:07)
[2016-12-15] MEDS: FAMOTIDINE 20 MG TAB PO SCH ×2 (08:07→20:55)
--- NOTE | 2016-12-15 11:11 | Progress Note ---
Subjective Date of Service: Dec 15, 2016. Subjective Pt evaluation today including: conversation w/ patient, physical exam, chart review, lab review pt seen in follow up, had dressing changed prior to my exam, tolerated well. tolerating IV abx. afebrile. denies pain in legs. denies f/c. less drainage. no abd pain, no n/v/d. wound culture from wound center 12/12 reviewed with patient. Growing pseudomonas, now resistant to Levaquin, and MRSA, resistant to clinda - she is allergic to doxy. All remaining ros reviewed and are negative. Objective Vital Signs Date Time Temp Pulse Resp B/P (MAP) Pulse Ox O2 Delivery O2 Flow Rate FiO2 12/15/16 08:00 Room Air 12/15/16 07:15 36.7 77 18 129/85 (100) 96 Room Air 12/15/16 01:05 Room Air 12/15/16 00:00 36.7 72 18 120/79 (93) 96 Room Air 12/14/16 21:12 Room Air 12/14/16 16:30 36.7 70 18 125/83 (97) 95 Room Air 12/14/16 15:48 Room Air Physical Exam General Appearance: WD/WN, no apparent distress Eyes: normal inspection, PERRL Neck: supple Respiratory/Chest: lungs clear, normal breath sounds, no respiratory distress Cardiovascular: regular rate, rhythm, no edema Abdomen: non tender, soft Extremities: non-tender, no pedal edema Neurologic/Psychiatric: alert, oriented x 3 Skin: normal color, warm/dry Comments: le dressing c/d/i, no erythema Laboratory Results Item Value Date Time Gram Stain - Final Resulted 12/12/16 1200 Ulcer Leg Lower Left Gram Stain - Final Resulted 12/12/16 1200 Ulcer Leg Right Lower Last 24 Hours Test 12/15/16 06:39 White Blood Count 2.88 K/uL Red Blood Count 4.22 M/uL Hemoglobin 11.3 g/dL Hematocrit 35.6 % Mean Corpuscular Volume 84.4 fL Mean Corpuscular Hemoglobin 26.8 pg Mean Corpuscular Hemoglobin Concent 31.7 g/dl Platelet Count 275 K/uL Mean Platelet Volume 8.5 fL Neutrophils (%) (Auto) 38.2 % Lymphocytes (%) (Auto) 35.4 % Monocytes (%) (Auto) 24.0 % Eosinophils (%) (Auto) 1.0 % Basophils (%) (Auto) 0.7 % Neutrophils # (Auto) 1.10 K/uL Lymphocytes # (Auto) 1.02 K/uL Monocytes # (Auto) 0.69 K/uL Eosinophils # (Auto) 0.03 K/uL Basophils # (Auto) 0.02 K/uL RDW Standard Deviation 49.1 fL RDW Coefficient of Variation 16.0 % Immature Granulocyte % (Auto) 0.7 % Immature Granulocyte # (Auto) 0.02 K/uL Prothrombin Time 12.3 SECONDS Prothromb Time International Ratio 1.1 Assessment and Plan (1) Venous stasis ulcers Assessment & Plan: we discussed several options for abx, she does not want picc and IV abx at thist time, will place on bactrim and cipro. explained to pt that pseudomonas is I to cipro and she may have failure with this treatment but no other po options available to treat pseudomonas. She expressed understanding but would prefer to continue with cipro to avoid picc placement. She will need continued follow up with wound center and ID (sees Dr. Krishnan) post d/c. ok for d/c from ID standpoint. (2) Cellulitis
[2016-12-15] MEDS: WARFARIN PO SCH ×2 (15:44)
--- NOTE | 2016-12-15 19:15 | Progress Note ---
Medicine Progress Note Date & Time of Visit: Dec 15, 2016 at 18:57. Subjective Pt was seen and examined Lying in bed comfortable watching TV Pt said that she feels fine she saw ID today and she said ID said that she need a port to get IV abx once discharge Pt said that she said no port but when i explained it to her she said she did not know if that was a picc line she said that she had a picc line placed before she would like us to talk to her daughter tomorrow morning about the picc line before she can make a decision denies any chest pain, palpitation, dizziness and SOB Objective Last 8 Hrs Date Time Temp Pulse Resp B/P (MAP) Pulse Ox O2 Delivery O2 Flow Rate FiO2 12/15/16 15:30 Room Air Physical Exam: General- No acute distress Head- atraumatic Eyes- PERRL, EOMI ENT- oropharynx clear Neck- supple, no JVD Lungs- clear to auscultation Heart- regular rhythm; no murmur Abdomen- normal bowel sounds, soft Extremities- no calf tenderness, legs wrapped Neuro- alert, oriented x 3; PERRL, EOMI; no facial palsy Skin- warm & dry Laboratory Results: Last 24 Hours Test 12/15/16 06:39 White Blood Count 2.88 K/uL Red Blood Count 4.22 M/uL Hemoglobin 11.3 g/dL Hematocrit 35.6 % Mean Corpuscular Volume 84.4 fL Mean Corpuscular Hemoglobin 26.8 pg Mean Corpuscular Hemoglobin Concent 31.7 g/dl Platelet Count 275 K/uL Mean Platelet Volume 8.5 fL Neutrophils (%) (Auto) 38.2 % Lymphocytes (%) (Auto) 35.4 % Monocytes (%) (Auto) 24.0 % Eosinophils (%) (Auto) 1.0 % Basophils (%) (Auto) 0.7 % Neutrophils # (Auto) 1.10 K/uL Lymphocytes # (Auto) 1.02 K/uL Monocytes # (Auto) 0.69 K/uL Eosinophils # (Auto) 0.03 K/uL Basophils # (Auto) 0.02 K/uL RDW Standard Deviation 49.1 fL RDW Coefficient of Variation 16.0 % Immature Granulocyte % (Auto) 0.7 % Immature Granulocyte # (Auto) 0.02 K/uL Prothrombin Time 12.3 SECONDS Prothromb Time International Ratio 1.1 Assessment & Plan Bilateral lower extremity cellulitis/wound infection was sent from wound clinic failed outpatient management with Keflex and Levaquin wound culture obtained at the clinic on 12/12/16 right lower ext grew gram negative bacilli , staph Sensitivity pending Continue broad-spectrum antibiotics with daptomycin and Zosyn Appreciate ID consult, recommended to continue current abx treatment Refused IV abx infusion on discharge due to the idea that she will need a port Now she might consider to get a PICC line to continue IV abx since she might have a chance to fail the treatment with the PO abx She wants to think about it and will discuss that with her daughter in the morning If pt refuses the PICC line, ID recommended to discharge on Cipro and Bactrium PO She will need to continue following with ID and and the Wound care center Wound care consulted History of SLE/protein S deficiency/DVT/PE Continue outpatient dosing of warfarin 7.5 mg daily INR 1.1 monitor INR Chronic kidney disease stage III stable Avoid nephrotoxic agents and follow PRP GERD Continue Pepcid 20 mg twice daily Depression Continue Zoloft Stable Hypertension Continue Cozaar 50 mg daily Hydralazine 10 mg IV q 6 hr Stable DVT prophylaxis Warfarin No teds/SCDs secondary cellulitis Consider heparin subq until INR is therapeutic But pt is allergy with heparin CODE STATUS LEVEL I FULL CODE DISPOSITION discharge home tomorrow On IV abx continued follow up with wound are clinic Consultants: ID Wound care Current Inpatient Medications: Current Inpatient Medications Medications (Trade) Dose Ordered Sig/Tiara Route Start Time Stop Time Status Last Admin Dose Admin Morphine Sulfate (MoRPHine SULFATE INJ) 4 mg Q2H PRN IV 12/12/16 17:15 12/26/16 17:14 12/15/16 14:41 4 MG Colchicine (Colchicine Tab) 0.6 mg BID PO 12/12/16 20:00 01/11/17 19:59 12/15/16 08:07 0.6 MG Famotidine (Pepcid Tab) 20 mg BID PO 12/12/16 20:00 01/11/17 19:59 12/15/16 08:07 20 MG Folic Acid (Folvite Tab) 1 mg DAILY PO 12/13/16 08:00 01/12/17 07:59 12/15/16 08:07 1 MG Losartan Potassium (coZAAR TAB) 50 mg DAILY PO 12/13/16 08:00 01/12/17 07:59 12/15/16 08:07 50 MG Multivitamins/ Minerals (Multivitamin W/ Minerals Tab) 1 tab DAILY PO 12/13/16 08:00 01/12/17 07:59 12/15/16 08:07 1 TAB Prednisone (PredniSONE TAB) 5 mg DAILY PO 12/13/16 08:00 01/12/17 07:59 12/15/16 08:07 5 MG Sertraline HCl (Zoloft Tab) 100 mg DAILY PO 12/13/16 08:00 01/12/17 07:59 12/15/16 08:07 100 MG Tramadol HCl (Ultram Tab) 50 mg Q8H PRN PO 12/12/16 17:15 01/11/17 17:14 12/15/16 18:56 50 MG Warfarin Sodium (Coumadin Tab) 7.5 mg Q2D@1600 PO 12/14/16 16:00 01/13/17 15:59 12/14/16 16:14 7.5 MG Acetaminophen (Tylenol Tab) 650 mg Q4H PRN PO 12/12/16 17:15 01/11/17 17:14 12/12/16 20:09 650 MG Al Hydrox/Mg Hydrox/Simethicone (Maalox Max Susp) 15 ml Q4H PRN PO 12/12/16 17:15 01/11/17 17:14 Magnesium Hydroxide (Milk Of Magnesia Susp) 30 ml Q6H PRN PO 12/12/16 17:15 01/11/17 17:14 Ondansetron HCl (Zofran Inj) 4 mg Q6H PRN IV 12/12/16 17:15 01/11/17 17:14 Warfarin Sodium (Coumadin Tab) 3.25 mg Q2D@1600 PO 12/13/16 16:00 01/12/17 15:59 12/15/16 15:44 3.25 MG Diphenhydramine HCl (Benadryl Cap) 25 mg Q6 PRN PO 12/13/16 08:15 01/12/17 08:14 12/14/16 20:49 25 MG Ciprofloxacin (Cipro Tab) 500 mg BID PO 12/15/16 20:00 8/17/17 19:59 Trimethoprim/ Sulfamethoxazole (Septra Ds 800/ 160MG Tab) 1 tab Q12 PO 12/15/16 21:00 12/25/16 20:59
[2016-12-15] MEDS: CIPROFLOXACIN 500 MG TAB PO SCH (20:55)
[2016-12-15] MEDS: SULFAMETHOXAZOLE/TRIMETHOPRIM DS 800/160MG TAB PO SCH (20:55)
[2016-12-16] VITALS: BP 138/84; PULSE 71; TEMP 36.6; O2SAT 98
[2016-12-16] MEDS: MoRPHine SULFATE 4 MG/ML 1 ML CARP\\VIAL IV PRN ×2 (02:32→20:18)
[2016-12-16 07:26] VITALS: BP 106/67; PULSE 64; TEMP 36.6; O2SAT 99
[2016-12-16 08:16] LABS: HEMATOCRIT 38.8 % (37-47); MEAN CELL VOLUME 83.8 fL (80-100); MEAN CORPUSCULAR HEMOGLOBIN 25.5 pg (25-34); MEAN CORPUSCULAR HGB CONC 30.4 g/dl (32-36); MEAN PLATELET VOLUME 8.5 fL (7.4-10.4); PLATELET COUNT 301 K/uL (130-400); RED BLOOD COUNT 4.63 M/uL (4.2-5.4); WHITE BLOOD COUNT 3.22 K/uL (4.8-10.8)
[2016-12-16] MEDS: CIPROFLOXACIN 500 MG TAB PO SCH ×2 (08:27→20:11)
[2016-12-16] MEDS: CEROVITE ADV FORMULA TAB PO SCH (08:27)
[2016-12-16] MEDS: SERTRALINE HCL 100 MG TAB PO SCH (08:27)
[2016-12-16] MEDS: LOSARTAN POTASSIUM 50 MG TAB PO SCH (08:27)
[2016-12-16] MEDS: COLCHICINE 0.6 MG TAB PO SCH ×2 (08:27→20:11)
[2016-12-16] MEDS: SULFAMETHOXAZOLE/TRIMETHOPRIM DS 800/160MG TAB PO SCH ×2 (08:27→21:39)
[2016-12-16 08:28] LABS: INR 1.2 (0.9-1.1); PROTHROMBIN TIME (PATIENT) 13.2 SECONDS (9.0-12.0)
[2016-12-16] MEDS: FAMOTIDINE 20 MG TAB PO SCH ×2 (08:28→20:12)
[2016-12-16] MEDS: TRAMADOL HCL 50 MG TAB PO PRN (10:19)
--- NOTE | 2016-12-16 13:24 | Wound Progress Note: Inpatient ---
Wound Progress Note Date of Service Dec 15, 2016. Subjective Pt evaluation today including: conversation w/ patient, chart review (patient states that the overall pain significantly improved and both legs. Patient denies any fever chills or night sweats. Patient denies any other systemic complaints.) Pain: none Objective Vital Signs Date Time Temp Pulse Resp B/P (MAP) Pulse Ox O2 Delivery O2 Flow Rate FiO2 12/16/16 08:30 Room Air 12/16/16 07:26 36.6 64 16 106/67 (80) 99 Room Air 12/16/16 00:00 36.6 71 18 138/84 (102) 98 2.0 12/16/16 00:00 Room Air 12/15/16 15:30 Room Air Physical Exam Notes: Vital signs were reviewed and patient found to be afebrile. The overall appearance of the ulcerations show significant improvement. There is no evidence of any periwound erythema noted at this time. No active drainage or odor. Overall edema is reasonably controlled. Laboratory Results Last 24 Hours Test 12/16/16 07:50 White Blood Count 3.22 K/uL Red Blood Count 4.63 M/uL Hemoglobin 11.8 g/dL Hematocrit 38.8 % Mean Corpuscular Volume 83.8 fL Mean Corpuscular Hemoglobin 25.5 pg Mean Corpuscular Hemoglobin Concent 30.4 g/dl RDW Standard Deviation 48.1 fL RDW Coefficient of Variation 15.7 % Platelet Count 301 K/uL Mean Platelet Volume 8.5 fL Prothrombin Time 13.2 SECONDS Prothromb Time International Ratio 1.2 Assessment and Plan Assessment: Bilateral severe venous varicosities lower extremities with associated cellulitis Plan: At this time no debridement is indicated. The sites of be dressed with Aquasol AG gauze and Coban and light compression wraps. Compression wrap to be change in 48 hours. Patient will continue to be monitored during her hospitalization and followed in the outpatient clinic as before. Patient will continue her current antibiotic therapy.
--- NOTE | 2016-12-16 14:54 | Progress Note ---
Subjective Date of Service: Dec 16, 2016. Subjective pt continues with abx, tolerating well. remains afebrile. ? about picc line placement, yesterday on my exam she declined picc line, reconsidering now. tolerating current abx. previous culture at wound center with pseudomonas and MRSA Objective Vital Signs Date Time Temp Pulse Resp B/P (MAP) Pulse Ox O2 Delivery O2 Flow Rate FiO2 12/16/16 08:30 Room Air 12/16/16 07:26 36.6 64 16 106/67 (80) 99 Room Air 12/16/16 00:00 36.6 71 18 138/84 (102) 98 2.0 12/16/16 00:00 Room Air 12/15/16 15:30 Room Air Laboratory Results Last 24 Hours Test 12/16/16 07:50 White Blood Count 3.22 K/uL Red Blood Count 4.63 M/uL Hemoglobin 11.8 g/dL Hematocrit 38.8 % Mean Corpuscular Volume 83.8 fL Mean Corpuscular Hemoglobin 25.5 pg Mean Corpuscular Hemoglobin Concent 30.4 g/dl RDW Standard Deviation 48.1 fL RDW Coefficient of Variation 15.7 % Platelet Count 301 K/uL Mean Platelet Volume 8.5 fL Prothrombin Time 13.2 SECONDS Prothromb Time International Ratio 1.2 Assessment and Plan (1) Venous stasis ulcers Assessment & Plan: will place on bactrim and cipro if pt continues to decline picc placement. . explained to pt that pseudomonas is I to cipro and she may have failure with this treatment but no other po options available to treat pseudomonas. If pt is agreeable to picc line, would suggest: Dapto at current dose Cefepime 1g IV bid will need weekly cbc, cmp, cpk while on IV abx, Would plan for minimum 2 weeks abx with plans for continued follow up with wound center and ID (sees Dr. Krishnan) post d/c. Will adjust abx duration if needed at that time. ok for d/c from ID standpoint. (2) Cellulitis
[2016-12-16] MEDS: WARFARIN SOD 7.5 MG TAB PO SCH (15:52)
[2016-12-16 16:05] VITALS: BP 122/72; PULSE 69; TEMP 36.8; O2SAT 96
--- NOTE | 2016-12-16 16:58 | Progress Note ---
Medicine Progress Note Date & Time of Visit: Dec 16, 2016 at 16:52. Subjective seen resting in bed, using cellphone comfortable states she feels ok denies leg pain denies other symptoms Objective Last 8 Hrs Date Time Temp Pulse Resp B/P (MAP) Pulse Ox O2 Delivery O2 Flow Rate FiO2 12/16/16 16:05 36.8 69 18 122/72 (89) 96 Room Air Physical Exam: General- oriented x 3, not in distress, speaks in sentences with no effort Head- atraumatic Eyes- EOMI, anicteric Neck- supple, no JVD, no adenopathy Lungs- clear breath sounds bilaterally Heart- regular rhythm; no murmur Abdomen- normal bowel sounds, soft, nontender Extremities- bilateral lower legs with dressing and teds in olace Neuro- alert, oriented x 3;no gross focal deficits Skin- warm & dry Laboratory Results: Last 24 Hours Test 12/16/16 07:50 White Blood Count 3.22 K/uL Red Blood Count 4.63 M/uL Hemoglobin 11.8 g/dL Hematocrit 38.8 % Mean Corpuscular Volume 83.8 fL Mean Corpuscular Hemoglobin 25.5 pg Mean Corpuscular Hemoglobin Concent 30.4 g/dl RDW Standard Deviation 48.1 fL RDW Coefficient of Variation 15.7 % Platelet Count 301 K/uL Mean Platelet Volume 8.5 fL Prothrombin Time 13.2 SECONDS Prothromb Time International Ratio 1.2 Assessment & Plan Bilateral lower extremity cellulitis/wound infection was sent from wound clinic failed outpatient management with Keflex and Levaquin wound culture obtained at the clinic on 12/12/16 right lower ext grew gram negative bacilli , staph ID on board currently on Cipro + Bactrim recommend IV Dapto + Cefepime, via PICC line patient agrees today PICC line ordered case management to be consulted for IV Abx History of SLE/protein S deficiency/DVT/PE INR 1.2 additional 2.5mg po today for total of 10mg po tomorrow, start Coumadin 7.5mg po daily (usually on coumadin 7.5mg po /, 3.75mg other days) Chronic kidney disease stage III stable GERD Continue Pepcid 20 mg twice daily Depression Continue Zoloft Stable Hypertension Continue Cozaar 50 mg daily Stable DVT prophylaxis Warfarin No teds/SCDs secondary cellulitis Consider heparin subq until INR is therapeutic But pt is allergy with heparin CODE STATUS LEVEL I FULL CODE DISPOSITION d/c home with home health services tomorrow (after PICC line, IV antibiotics have been arranged) Consultants: ID Wound care Current Inpatient Medications: Current Inpatient Medications Medications (Trade) Dose Ordered Sig/Tiara Route Start Time Stop Time Status Last Admin Dose Admin Morphine Sulfate (MoRPHine SULFATE INJ) 4 mg Q2H PRN IV 12/12/16 17:15 12/26/16 17:14 12/16/16 02:32 4 MG Colchicine (Colchicine Tab) 0.6 mg BID PO 12/12/16 20:00 01/11/17 19:59 12/16/16 08:27 0.6 MG Famotidine (Pepcid Tab) 20 mg BID PO 12/12/16 20:00 01/11/17 19:59 12/16/16 08:28 20 MG Folic Acid (Folvite Tab) 1 mg DAILY PO 12/13/16 08:00 01/12/17 07:59 12/16/16 08:27 1 MG Losartan Potassium (coZAAR TAB) 50 mg DAILY PO 12/13/16 08:00 01/12/17 07:59 12/16/16 08:27 50 MG Multivitamins/ Minerals (Multivitamin W/ Minerals Tab) 1 tab DAILY PO 12/13/16 08:00 01/12/17 07:59 12/16/16 08:27 1 TAB Prednisone (PredniSONE TAB) 5 mg DAILY PO 12/13/16 08:00 01/12/17 07:59 12/16/16 08:27 5 MG Sertraline HCl (Zoloft Tab) 100 mg DAILY PO 12/13/16 08:00 01/12/17 07:59 12/16/16 08:27 100 MG Tramadol HCl (Ultram Tab) 50 mg Q8H PRN PO 12/12/16 17:15 01/11/17 17:14 12/16/16 10:19 50 MG Acetaminophen (Tylenol Tab) 650 mg Q4H PRN PO 12/12/16 17:15 01/11/17 17:14 12/12/16 20:09 650 MG Al Hydrox/Mg Hydrox/Simethicone (Maalox Max Susp) 15 ml Q4H PRN PO 12/12/16 17:15 01/11/17 17:14 Magnesium Hydroxide (Milk Of Magnesia Susp) 30 ml Q6H PRN PO 12/12/16 17:15 01/11/17 17:14 Ondansetron HCl (Zofran Inj) 4 mg Q6H PRN IV 12/12/16 17:15 01/11/17 17:14 Diphenhydramine HCl (Benadryl Cap) 25 mg Q6 PRN PO 12/13/16 08:15 01/12/17 08:14 12/16/16 10:19 25 MG Ciprofloxacin (Cipro Tab) 500 mg BID PO 12/15/16 20:00 12/25/16 19:59 12/16/16 08:27 500 MG Trimethoprim/ Sulfamethoxazole (Septra Ds 800/ 160MG Tab) 1 tab Q12 PO 12/15/16 21:00 12/25/16 20:59 12/16/16 08:27 1 TAB Warfarin Sodium (Coumadin Tab) 7.5 mg DAILY@16 PO 12/17/16 16:00 01/16/17 15:59 UNV
[2016-12-16] MEDS ORDERED: WARFARIN SOD 2.5 MG TAB PO ONE (17:30)
[2016-12-17 00:14] VITALS: BP 111/72; PULSE 69; TEMP 36.7; O2SAT 97
[2016-12-17 07:14] VITALS: BP 127/74; PULSE 65; TEMP 36.5; O2SAT 97
[2016-12-17] MEDS: LOSARTAN POTASSIUM 50 MG TAB PO SCH (08:05)
[2016-12-17] MEDS: CEROVITE ADV FORMULA TAB PO SCH (08:05)
[2016-12-17] MEDS: COLCHICINE 0.6 MG TAB PO SCH (08:05)
[2016-12-17] MEDS: FAMOTIDINE 20 MG TAB PO SCH (08:05)
[2016-12-17] MEDS: CIPROFLOXACIN 500 MG TAB PO SCH (08:05)
[2016-12-17] MEDS: SERTRALINE HCL 100 MG TAB PO SCH (08:06)
[2016-12-17] MEDS: SULFAMETHOXAZOLE/TRIMETHOPRIM DS 800/160MG TAB PO SCH (08:06)
[2016-12-17 08:55] LABS: INR 1.4 (0.9-1.1); PROTHROMBIN TIME (PATIENT) 14.8 SECONDS (9.0-12.0)
[2016-12-17 11:39] VITALS: BP 127/74; PULSE 65; TEMP 36.5; O2SAT 97
--- NOTE | 2016-12-17 14:09 | Progress Note ---
Medicine Progress Note Date & Time of Visit: Dec 17, 2016 at 14:02. Subjective patient seen resting in bedside chair states she feels fine overall having some lower leg pain, chronic denies other symptoms states she is ready and would like to be discharged today no other symptoms Objective Last 8 Hrs Date Time Temp Pulse Resp B/P (MAP) Pulse Ox O2 Delivery O2 Flow Rate FiO2 12/17/16 11:39 36.5 65 16 97 Room Air 12/17/16 10:52 Room Air 12/17/16 07:14 36.5 65 16 127/74 (91) 97 Room Air Physical Exam: General- oriented x 3, not in distress, speaks in sentences with no effort Eyes- anicteric Neck- supple, no JVD Lungs- clear breath sounds bilaterally, no rales/wheezes Heart- regular rhythm; no murmur, normal rate Abdomen- normal bowel sounds, soft, nontender Extremities- bilateral lower legs with dressing and teds in place Neuro- alert, oriented x 3;no gross focal deficits Skin- warm & dry Laboratory Results: Last 24 Hours Test 12/17/16 08:26 Prothrombin Time 14.8 SECONDS Prothromb Time International Ratio 1.4 Assessment & Plan Bilateral lower extremity cellulitis/wound infection was sent from wound clinic failed outpatient management with Keflex and Levaquin wound culture obtained at the clinic on 12/12/16 right lower ext grew gram negative bacilli , staph ID consulted- placed on Cipro + Bactrim recommend at least 2 weeks of IV Dapto + Cefepime, via PICC line -- patient to continue Dapto + Cefepime IV x 2 weeks follow up with ID Clinic Dr. Krishnan/Mabel in 1 week to determine duration of antibiotics continue daily wound care CBC, CMP, CPK weekly while on IV antibiotics History of SLE/protein S deficiency/DVT/PE INR 1.4 as outpatient, usually on coumadin 7.5mg po m/, 3.75mg other days patient should receive 10mg today (12/17/16), then check INR daily until INR 2-3 monitor INR closely Chronic kidney disease stage III stable GERD Continue Pepcid 20 mg twice daily Depression Continue Zoloft Stable Hypertension Continue Cozaar 50 mg daily Stable DVT prophylaxis Warfarin CODE STATUS LEVEL I FULL CODE DISPOSITION d/c to [facility] ff up with PCP in 1 week ff up with Wound Care Center and ID Clinic - Dr. Monroe in 1 week Consultants: ID Wound care Current Inpatient Medications: Current Inpatient Medications Medications (Trade) Dose Ordered Sig/Tiara Route Start Time Stop Time Status Last Admin Dose Admin Morphine Sulfate (MoRPHine SULFATE INJ) 4 mg Q2H PRN IV 12/12/16 17:15 12/26/16 17:14 12/16/16 20:18 4 MG Colchicine (Colchicine Tab) 0.6 mg BID PO 12/12/16 20:00 01/11/17 19:59 12/17/16 08:05 0.6 MG Famotidine (Pepcid Tab) 20 mg BID PO 12/12/16 20:00 01/11/17 19:59 12/17/16 08:05 20 MG Folic Acid (Folvite Tab) 1 mg DAILY PO 12/13/16 08:00 01/12/17 07:59 12/17/16 08:05 1 MG Losartan Potassium (coZAAR TAB) 50 mg DAILY PO 12/13/16 08:00 01/12/17 07:59 12/17/16 08:05 50 MG Multivitamins/ Minerals (Multivitamin W/ Minerals Tab) 1 tab DAILY PO 12/13/16 08:00 01/12/17 07:59 12/17/16 08:05 1 TAB Prednisone (PredniSONE TAB) 5 mg DAILY PO 12/13/16 08:00 01/12/17 07:59 12/17/16 08:05 5 MG Sertraline HCl (Zoloft Tab) 100 mg DAILY PO 12/13/16 08:00 01/12/17 07:59 12/17/16 08:06 100 MG Tramadol HCl (Ultram Tab) 50 mg Q8H PRN PO 12/12/16 17:15 01/11/17 17:14 12/16/16 10:19 50 MG Acetaminophen (Tylenol Tab) 650 mg Q4H PRN PO 12/12/16 17:15 01/11/17 17:14 12/12/16 20:09 650 MG Al Hydrox/Mg Hydrox/Simethicone (Maalox Max Susp) 15 ml Q4H PRN PO 12/12/16 17:15 01/11/17 17:14 Magnesium Hydroxide (Milk Of Magnesia Susp) 30 ml Q6H PRN PO 12/12/16 17:15 01/11/17 17:14 Ondansetron HCl (Zofran Inj) 4 mg Q6H PRN IV 12/12/16 17:15 01/11/17 17:14 Diphenhydramine HCl (Benadryl Cap) 25 mg Q6 PRN PO 12/13/16 08:15 01/12/17 08:14 12/17/16 06:31 25 MG Ciprofloxacin (Cipro Tab) 500 mg BID PO 12/15/16 20:00 12/25/16 19:59 12/17/16 08:05 500 MG Trimethoprim/ Sulfamethoxazole (Septra Ds 800/ 160MG Tab) 1 tab Q12 PO 12/15/16 21:00 12/25/16 20:59 12/17/16 08:06 1 TAB Warfarin Sodium (Coumadin Tab) 7.5 mg DAILY@16 PO 12/17/16 16:00 01/16/17 15:59
[2016-12-17] MEDS: MoRPHine SULFATE 4 MG/ML 1 ML CARP\\VIAL IV PRN (14:10)
[2016-12-17] MEDS ORDERED: NURSING VERBAL MED ORDER ONE (14:15)
[2016-12-17] MEDS ORDERED: CEFE1INJ3 IV (14:22)
[2016-12-17] MEDS ORDERED: BELI1INJ IV (14:22)
[2016-12-17] MEDS ORDERED: WARF7.5T PO (14:22)
[2016-12-17] MEDS ORDERED: DAPT500I IV (14:22)
--- NOTE | 2016-12-17 14:36 | Discharge Instructions ---
Discharge Instructions Date of Service Dec 17, 2016. Admission Reason for Admission: Bilat Le Ulcers Discharge Discharge Diagnosis / Problem: INFECTED BILATERAL LEG WOUND ULCERS Discharge Goals Goal(s): Diagnostic testing, Therapeutic intervention Activity Recommendations Activity Level: Ambulates in room . Additional Information Patient informed of condition: Yes Advance Directives: No DNR: No (Patient is Full Code) Level of Care: Skilled Communicable Disease: No Prognosis: Stable Instructions / Follow-Up Instructions / Follow-Up Wound Care Service Recommendations: Affected sites be dressed with Aquasol AG gauze and Coban and light compression wraps. Compression wrap to be change in 48 hours. Further instructions re: antibiotic duration to be determined by ID Clinic on follow up. Weekly CBC, CMP, CPK while on IV antibiotics. Patient should receive Coumadin 10mg today 12/17/16, then check INR daily and titrate coumadin accordingly. Please refer to accompanying hospital discharge summary for further details. Follow up with Primary Care Physician Dr. Bender on Thursday December 22, 2016 at 12 45 pm. Follow up with Wound Care Center- Dr. Edu Devi and ID Clinic- Dr. Monroe in 1 week. Current Hospital Diet Patient's current hospital diet: AHA Diet (Heart Healthy) Discharge Diet Recommended Diet: AHA Diet (Heart Healthy) Procedures Procedures Performed: PICC LINE INSERTION Pending Studies Studies pending at discharge: yes List of pending studies: INR daily; Weekly CBC, CMP, CPK while on IV antibiotics. Physician Orders On Transfer Special Precautions: Wound Care Service Recommendations: Affected sites be dressed with Aquasol AG gauze and Coban and light compression wraps. Compression wrap to be change in 48 hours. Further instructions re: antibiotic duration to be determined by ID Clinic on follow up. Weekly CBC, CMP, CPK while on IV antibiotics. Patient should receive Coumadin 10mg today 12/17/16, then check INR daily and titrate coumadin accordingly. Please refer to accompanying hospital discharge summary for further details. Follow up with Primary Care Physician Dr. Bender on Thursday December 22, 2016 at 12 45 pm. Follow up with Wound Care Center- Dr. Edu Devi and ID Clinic- Dr. Monroe in 1 week. Dressing Changes: Affected sites to be dressed with Aquasol AG gauze and Coban and light compression wraps. Compression wrap to be change in 48 hours. Medical Emergencies . Who to Call and When: Medical Emergencies: If at any time you feel your situation is an emergency, please call 911 immediately. . Non-Emergent Contact Non-Emergency issues call your: Primary Care Provider Call Non-Emergent contact if: you have a fever, your pain is not controlled, your pain is worsening, wound has increased drainage, wound has increased redness . . "Provider Documentation" section prepared by Teddy Singletary. . Core Measure Problem Core Measures: None
--- NOTE | 2016-12-17 14:41 | Discharge Summary ---
Discharge Summary Date of Service Dec 17, 2016. Discharge Summary Admission Date: Dec 12, 2016 at 13:08 Discharge Date: Dec 17, 2016 Discharge Disposition: Rehab Principal Diagnosis: Bilateral lower extremity cellulitis/wound infection Secondary Diagnoses/Problems: Please refer to hospital course below. Procedures: PICC LINE INSERTION Consultations: ID; Wound care Pending Studies/Follow-Up: Wound Care Service Recommendations: Affected sites be dressed with Aquasol AG gauze and Coban and light compression wraps. Compression wrap to be change in 48 hours. Further instructions re: antibiotic duration to be determined by ID Clinic on follow up. Weekly CBC, CMP, CPK while on IV antibiotics. Patient should receive Coumadin 10mg today 12/17/16, then check INR daily and titrate coumadin accordingly. Please refer to hospital course below. for further details. Medication Reconciliation New Medications: Cefepime Hcl (Cefepime) 1 Gm Inj 1 GM IV BID for 14 Days Daptomycin (Daptomycin) 500 Mg Inj 500 MG IV DAILY for 14 Days Changed Medications: Belimumab (Benlysta) 120 Mg Inj 1200 MG IV UD for 30 Days (Medication details modified) every 4 weeks Warfarin Sodium (Coumadin) 7.5 Mg Tab 1 TAB PO UD for 90 Days, TAB 3 Refills (Changed from: Take 7.5 mg PO EVERY OTHER DAY; ALTERNATE DAYS 3.25 MG PO) take 10mg po at 4pm on 12/17/16; then check INR daily and titrate coumadin accordingly (patient usually takes 7.5 mg PO EVERY OTHER DAY; ALTERNATE DAYS 3.25 MG PO) Continued Medications: Acetaminophen (Tylenol) 325 Mg Tab 650 MG PO Q6H PRN for Pain, TAB NEEDED FOR MILD PAIN OR TEMP > 101. NOT TO EXCEED 3GM APAP/24HOURS. Calcium Carbonate (Tums) 500 Mg Chew 500 MG PO DAILY Calcium/Vitamin D (Os-Marco A 500 Plus D) Tab 1 TAB PO DAILY, TAB Colchicine (Colchicine) 0.6 Mg Tab 0.6 MG PO BID, TAB Diphenhydramine HCl (Diphenhydramine HCl) 25 Mg Cap 25 MG PO Q6H PRN for itchiness, #0 CAP Famotidine (Pepcid) 20 Mg Tab 20 MG PO BID, TAB Fluticasone Propionate (Nasal) (Flonase Allergy Relief) 50 Mcg/Act Spr 2 SPRAYS SHELLY DAILY Folic Acid (Folvite *) 1 Mg Tab 1 MG PO DAILY, 0 Refills Losartan Potassium (Cozaar) 25 Mg Tab 50 MG PO DAILY, TAB Multivitamins/Minerals (Mvi With Minerals) Tab 1 TAB PO DAILY, 0 Refills Prednisone (Prednisone) 5 Mg Tab 5 MG PO DAILY, TAB Saline ([place] Nasal [place]) 0.65 % Spr 2 SPRAYS SHELLY UD PRN for nasal dryness or congestion Sertraline (Zoloft) 100 Mg Tab 100 MG PO DAILY, TAB Tramadol (Ultram) 50 Mg Tab 50 MG PO Q8H PRN for Pain, TAB Discontinued Medications: Cephalexin Monohydrate (Cephalexin) 500 Mg Cap 500 MG PO Q6 for 30 Days, #120 CAP 3 Refills Levofloxacin (Levaquin) 750 Mg Tab 750 MG PO DAILY, #30 TAB [Prednisone Taper] () 50 MG PO DIRECTED Admission Information HPI (per Admitting provider): This patient is a 51-year-old female with a history of lupus, chronic venous stasis and DVT that was directly admitted to the hospital from wound care office today with complaints of likely cellulitis of the legs. The patient has chronic wounds on her legs. She follows with wound care and infectious disease regularly. She noticed a foul smelling drainage from her legs approximately 1 week ago. She has been on Levaquin and Keflex with no relief. She has felt feverish with chills over the last few days. She denies any other associated symptoms such as headache, nausea or joint pain. Physical Exam (per Admitting): General Appearance: + mild distress (tearful) Head: normocephalic Eyes: EOMI Neck: no JVD Respiratory/Chest: + pertinent finding (few crackles at the left base.) Cardiovascular: regular rate, rhythm Abdomen/GI: normal bowel sounds, non tender, soft Extremities/Musculoskelatal: + pertinent finding (legs have Raul bandage in place. DP pulse +2 bilaterally.) Neurologic/Psych: no motor/sensory deficits, oriented x 3 Skin: warm/dry Hospital Course Bilateral lower extremity cellulitis/wound infection was sent in from wound clinic failed outpatient management with Keflex and Levaquin wound culture obtained at the clinic on 12/12/16 right lower ext grew gram negative bacilli , staph ID consulted- placed on Cipro + Bactrim recommend at least 2 weeks of IV Dapto + Cefepime, via PICC line -- patient to continue Dapto + Cefepime IV x 2 weeks follow up with ID Clinic Dr. Krishnan/Mabel in 1 week to determine duration of antibiotics continue daily wound care CBC, CMP, CPK weekly while on IV antibiotics History of SLE/protein S deficiency/DVT/PE INR 1.4 as outpatient, usually on coumadin 7.5mg po m/f, 3.75mg other days patient should receive 10mg today (12/17/16), then check INR daily until INR 2-3 monitor INR closely Chronic kidney disease stage III stable GERD Continue Pepcid 20 mg twice daily Depression Continue Zoloft Stable Hypertension Continue Cozaar 50 mg daily Stable DVT prophylaxis Warfarin CODE STATUS LEVEL I FULL CODE DISPOSITION d/c to [facility] ff up with PCP in 1 week ff up with Wound Care Center and ID Clinic - Dr. Monroe in 1 week Total time spent on discharge = 40 minutes This includes examination of the patient, discharge planning, medication reconciliation, and communication with other providers. Discharge Instructions Discharge Instructions Date of Service Dec 17, 2016. Admission Reason for Admission: Bilat Le Ulcers Discharge Discharge Diagnosis / Problem: INFECTED BILATERAL LEG WOUND ULCERS Discharge Goals Goal(s): Diagnostic testing, Therapeutic intervention Activity Recommendations Activity Level: Ambulates in room . Additional Information Patient informed of condition: Yes Advance Directives: No DNR: No (Patient is Full Code) Level of Care: Skilled Communicable Disease: No Prognosis: Stable Instructions / Follow-Up Instructions / Follow-Up Wound Care Service Recommendations: Affected sites be dressed with Aquasol AG gauze and Coban and light compression wraps. Compression wrap to be change in 48 hours. Further instructions re: antibiotic duration to be determined by ID Clinic on follow up. Weekly CBC, CMP, CPK while on IV antibiotics. Patient should receive Coumadin 10mg today 12/17/16, then check INR daily and titrate coumadin accordingly. Please refer to accompanying hospital discharge summary for further details. Follow up with Primary Care Physician Dr. Bender on Thursday December 22, 2016 at 12 45 pm. Follow up with Wound Care Center- Dr. Edu Devi and ID Clinic- Dr. Monroe in 1 week. Current Hospital Diet Patient's current hospital diet: AHA Diet (Heart Healthy) Discharge Diet Recommended Diet: AHA Diet (Heart Healthy) Procedures Procedures Performed: PICC LINE INSERTION Pending Studies Studies pending at discharge: yes List of pending studies: INR daily; Weekly CBC, CMP, CPK while on IV antibiotics. Physician Orders On Transfer Special Precautions: Wound Care Service Recommendations: Affected sites be dressed with Aquasol AG gauze and Coban and light compression wraps. Compression wrap to be change in 48 hours. Further instructions re: antibiotic duration to be determined by ID Clinic on follow up. Weekly CBC, CMP, CPK while on IV antibiotics. Patient should receive Coumadin 10mg today 12/17/16, then check INR daily and titrate coumadin accordingly. Please refer to accompanying hospital discharge summary for further details. Follow up with Primary Care Physician Dr. Bender on Thursday December 22, 2016 at 12 45 pm. Follow up with Wound Care Center- Dr. Edu Devi and ID Clinic- Dr. Monroe in 1 week. Dressing Changes: Affected sites to be dressed with Aquasol AG gauze and Coban and light compression wraps. Compression wrap to be change in 48 hours. Medical Emergencies . Who to Call and When: Medical Emergencies: If at any time you feel your situation is an emergency, please call 911 immediately. . Non-Emergent Contact Non-Emergency issues call your: Primary Care Provider Call Non-Emergent contact if: you have a fever, your pain is not controlled, your pain is worsening, wound has increased drainage, wound has increased redness . . "Provider Documentation" section prepared by Teddy Singletary. . Core Measure Problem Core Measures: None
[2016-12-17] MEDS ORDERED: WARFARIN SOD 7.5 MG TAB PO SCH (16:00)
[2017-01-13] MEDS ORDERED: APIX1TAB3 PO (08:10)
[2017-01-13] MEDS ORDERED: DAPT500I IV (08:10)
[2017-01-13] MEDS ORDERED: MULT-16 PO (08:10)
[2017-02-12] MEDS ORDERED: ACET-1256 PO (14:51)
[2017-02-12] MEDS ORDERED: DULCOLAX SUPPOSITORY RE (14:51)
[2017-02-12] MEDS ORDERED: MOML PO (14:51)
[2017-02-12] MEDS ORDERED: NYSTATIN POWDER TOP (14:51)
[2017-02-12] MEDS ORDERED: SODI1ENE RE (14:51)
[2017-02-12] MEDS ORDERED: SENN-61 PO (14:51)
[2017-02-12] MEDS ORDERED: CEFE1INJ2 IV (14:51)
[2017-02-12] MEDS ORDERED: DOCU-94 PO (14:51)
== END 2016-12-17 16:34 | DRG 571 ==
LOC: C.4E 13:08
PROVIDERS: ADMIT Hospitalist; ATTEND Internal Medicine
PROC: 0JBP0ZZ Excision of Left Lower Leg Subcutaneous Tissue and Fascia, Open Approach (ICD-10-PCS; 2016-12-12)
PROC: 02HV33Z Insertion of Infusion Device into Superior Vena Cava, Percutaneous Approach (ICD-10-PCS; principal; 2016-12-17)
DX: L03.115 Cellulitis of right lower limb (principal); Z68.41 Body mass index [BMI] 40.0-44.9, adult; L97.919 Non-pressure chronic ulcer of unspecified part of right lower leg with unspecified severity; L97.929 Non-pressure chronic ulcer of unspecified part of left lower leg with unspecified severity; I87.2 Venous insufficiency (chronic) (peripheral); L03.116 Cellulitis of left lower limb; M32.9 Systemic lupus erythematosus, unspecified; N18.3 Chronic kidney disease, stage 3 (moderate); K21.9 Gastro-esophageal reflux disease without esophagitis; I12.9 Hypertensive chronic kidney disease with stage 1 through stage 4 chronic kidney disease, or unspecified chronic kidney disease; F32.9 Major depressive disorder, single episode, unspecified; E66.01 Morbid (severe) obesity due to excess calories; Z79.01 Long term (current) use of 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s; Z79.52 Long term (current) use of systemic steroids; Z79.899 Other long term (current) drug therapy; I77.6 Arteritis, unspecified; L93.2 Other local lupus erythematosus; B95.61 Methicillin susceptible Staphylococcus aureus infection as the cause of diseases classified elsewhere

== ENCOUNTER → 2017-03-30 | Outpatient (CLI) | payer OTHER ==
[~2017-03-30] MED LIST changes: +ACET-1256 PO; +APIX1TAB3 PO; -BELI1INJ; +BELI1INJ IV; -BND25X PO; +CEFE1INJ2 IV; +DAPT500I IV; +DIPH25CA50 PO; +DOCU-94 PO; +DULCOLAX SUPPOSITORY RE; -KFL500 PO; -LEVO1TAB35 PO; +MOML PO; +MULT-16 PO; -MULT-513 PO; +NYSTATIN POWDER TOP; -PREDNISONE TAPER PO; -SALI0.6510 NAE; +SENN-61 PO; +SODI1ENE RE; -WARF7.5T PO
[2017-03-30 08:51] LABS: HEMATOCRIT 40.4 % (37-47); MEAN CELL VOLUME 87.1 fL (80-100); MEAN CORPUSCULAR HEMOGLOBIN 28.4 pg (25-34); MEAN CORPUSCULAR HGB CONC 32.7 g/dl (32-36); MEAN PLATELET VOLUME 10.1 fL (7.4-10.4); PLATELET COUNT 197 K/uL (130-400); RED BLOOD COUNT 4.64 M/uL (4.2-5.4); WHITE BLOOD COUNT 5.23 K/uL (4.8-10.8)
[2017-03-30 08:57] LABS: ALT/SGPT 34 U/L (12-78); BLOOD UREA NITROGEN 17 mg/dl (7-18); BUN/CREATININE RATIO 19.3 (10-20); CALCIUM 9.3 mg/dl (8.5-10.1); CARBON DIOXIDE 25 mmol/L (21-32); CHLORIDE 105 mmol/L (98-107); CHOLESTEROL 259 mg/dl (0-200); CREATININE 0.87 mg/dl (0.60-1.20); GLUCOSE 77 mg/dl (70-99); POTASSIUM 3.8 mmol/L (3.5-5.1); SODIUM 140 mmol/L (136-145); TRIGLYCERIDES 261 mg/dl (0-150); VERY LOW DENSITY LIPOPROT CALC 52 mg/dl
[2017-03-30 09:00] LABS: ALB/GLOB RATIO 1.2 (0.9-2); ALKALINE PHOSPHATASE 75 U/L (45-117); AST/SGOT 15 U/L (15-37); HDL CHOLESTEROL 52 mg/dl; LDL CHOLESTEROL CALCULATED 155 mg/dl
[2017-03-30 09:35] LABS: ESTIMATED AVERAGE GLUCOSE 111 mg/dl; HA1C FLAG Normal (Normal)
== END ==
LOC: C.LABUPNIT 08:27
PROVIDERS: ATTEND Nurse Practitioner Family
DX: E11.22 Type 2 diabetes mellitus with diabetic chronic kidney disease (principal); N18.3 Chronic kidney disease, stage 3 (moderate); E55.9 Vitamin D deficiency, unspecified; M32.10 Systemic lupus erythematosus, organ or system involvement unspecified

== ENCOUNTER 2018-12-11 13:49 | Inpatient (IN) ==
[2018-12-11] MEDS ORDERED: methylPREDNISolone 60 MG in SYRINGE 1 ML IV STA (14:14)
[2018-12-11] MEDS ORDERED: ALBUT/IPRATROP 3MG/0.5MG NEB 3 ML VIAL INH STA (14:14)
[2018-12-11] MEDS ORDERED: SODIUM CHLORIDE 0.9% 250 ML IV ONE (14:14)
--- NOTE | 2018-12-11 14:22 | Emergency Department Note ---
Entered by Emilia Ashraf acting as a scribe for Cayden Benoit MD History of Present Illness General Chief complaint: Shortness of Breath/Dyspnea Stated complaint: SHORT OF BREATH,COUGHING UP BLOO Time Seen by Provider: 12/11/18 14:07 Source: patient History of Present Illness Onset (ago): week(s) 1 Location: mouth (shortness of breath) Pain Consistency: + other (worsening) Maximum Pain Intensity: 9 Exacerbated By: + movement Associated symptoms: + chest pain (tight), + diaphoresis, + nausea/vomiting and + other (hotness) The patient is a 53 year old F who presents to the Emergency Room with complaints of worsening shortness of breath that started 1 week ago. She states that when her symptoms began, she was experiencing a productive cough with mucous. She notes that last night she was coughing up yellow phlegm and blood. She adds that she is currently experiencing hotness, sweating, vomiting and tight chest pain. She notes that she was treated by home nurses yesterday who took her blood pressure. She adds that her blood pressure was 148/77. She states that her shortness of breath is worsened with movement. She notes that she gets her legs wrapped at the [facility] every 2 weeks. She adds that her next appointment is next . She states that she has a hist ory of pneumonia and bronchitis. She adds that her last episode of bronchitis was 1 month ago. She denies a history of COPD and inhaler use. She notes that she currently takes Eliquis for a history of blood clots in her legs and lungs. She states that she vomited up all of her medications today. She denies being around anybody sick. She also denies any recent medication changes. Home Medications Home Medications Medication Instructions Recorded Confirmed Type acetaminophen 500 mg tablet 1,000 mg PO Q8H PRN tab 01/05/18 12/11/18 History apixaban 5 mg tablet 5 mg PO BID tab 01/05/18 12/11/18 History belimumab 400 mg intravenous 1,200 mg IV UD ea 01/05/18 12/11/18 History solution calcium carbonate 500 mg (1,250 1 tab PO QAM tab 01/05/18 12/11/18 History mg)-vitamin D3 200 unit tablet calcium carbonate 500 mg calcium 1,000 mg PO DAILY tab 01/05/18 12/11/18 History (1,250 mg) chewable tablet diphenhydramine 25 mg tablet 25 mg PO Q6H PRN tab 01/05/18 12/11/18 History famotidine 20 mg tablet 20 mg PO DAILY 01/05/18 12/11/18 History fluticasone propionate 50 2 sprays INTNAS BID gm 01/05/18 12/11/18 History mcg/actuation nasal spray,suspension folic acid 1 mg tablet 1 mg PO HS 01/05/18 12/11/18 History hydroxychloroquine 200 mg tablet 400 mg PO PM tab 01/05/18 12/11/18 History multivitamin with minerals capsule 1 cap PO QAM cap 01/05/18 12/11/18 History prednisone 5 mg tablet 5 mg PO HS 01/05/18 12/11/18 History sertraline 100 mg tablet 100 mg PO HS 01/05/18 12/11/18 History sodium chloride 0.65 % nasal spray 2 sprays INTNAS QPM ml 01/05/18 12/11/18 History aerosol trazodone 50 mg tablet 100 mg PO HS tab 01/05/18 12/11/18 History clindamycin HCl 300 mg capsule 300 mg PO BID #60 cap 05/13/18 12/11/18 Rx cefdinir 300 mg capsule 300 mg PO Q12H #60 cap 11/17/18 12/11/18 Rx losartan 100 mg PO DAILY 12/11/18 12/11/18 History Allergies Allergy/AdvReac Type Severity Reaction Status Date / Time heparin Allergy Severe HIT R/O Verified 12/11/18 15:50 from last hospital admission - rather was dx w/ ITP vancomycin Allergy Intermediate RASH Verified 12/11/18 15:50 tetracycline Allergy Mild RASH, Verified 12/11/18 15:50 PRURITIS amlodipine Allergy Unknown Unknown Verified 12/11/18 15:50 bacitracin Allergy Unknown Unknown Verified 12/11/18 15:50 doxycycline Allergy Unknown UNKNOWN Verified 12/11/18 15:50 polymyxin B Allergy Unknown Unknown Verified 12/11/18 15:50 Past Med/Surg History Medical History History of pulmonary embolism (Chronic) HTN (hypertension) (Chronic) PNA (pneumonia) (Acute) Venous stasis ulcers of both lower extremities (Acute) Chronic venous insufficiency (Chronic) History of idiopathic thrombocytopenic purpura (Chronic) 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) Anemia (Chronic) GERD (gastroesophageal reflux disease) (Chronic) Depression (Chronic) CKD (chronic kidney disease), stage III (Chronic) Hypercoagulable state (Chronic) "protein C deficiency, positive phospholipid AB syndrome, positive lupus 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" Systemic lupus (Chronic) Arteriovenous fistula (Chronic) DVT (deep venous thrombosis) (Chronic) Diabetes (Chronic) [place] filter in place (Chronic) HTN (hypertension) (Chronic) Surgical History History of cholecystectomy (Chronic) H/O hernia repair (Chronic) S/P appendectomy (Chronic) S/P insertion of IVC (inferior vena caval) filter (Chronic) H/O exploratory laparotomy (Chronic) S/P section (Chronic) S/P cholecystectomy (Chronic) S/P hysterectomy (Chronic) Family History Mother Colorectal cancer Social History Preferred Language: [place] Bed Setter Required: No Beliefs That Will Affect Care: None Current Living Situation: Other Current Living Situation Comment: friends Feels Safe at Home: Yes Safety Concerns: Feels Safe At This Time Smoking Status: Never smoker Hx Alcohol Use: Yes Hx Substance Use: No Review of Systems See HPI for pertinent positives & negatives. and A total of 10 systems reviewed and were otherwise negative Physical Exam Vital Signs Vital Signs - 24 hr 12/11/18 13:50 12/11/18 14:02 12/11/18 14:14 Temperature 36.7 C Temperature Source Oral Sepsis Recent Fever Within 48 Hours No Sepsis Action Taken by Nursing No Action Required Pulse Rate 132 H Pulse Rate [Right Apical] Pulse Rate from SpO2 Sensor Respiratory Rate 22 Respiratory Effort / Characteristics Spontaneous Labored Short of Breath Non-Labored Spontaneous Respiratory Depth Normal Respiratory Pattern Regular Blood Pressure 179/117 H Blood Pressure [Right Arm] Blood Pressure Mean 137 Blood Pressure Mean [Right Arm] Blood Pressure Position Lying Pulse Oximetry 94 Oxygen Delivery Method Room Air Room Air Room Air Fraction of Inspired Oxygen 12/11/18 14:27 12/11/18 15:25 12/11/18 15:28 Temperature Temperature Source Sepsis Recent Fever Within 48 Hours Sepsis Action Taken by Nursing Pulse Rate 138 H Pulse Rate [Right Apical] 119 H 130 H Pulse Rate from SpO2 Sensor 138 H Respiratory Rate 26 H 30 H 18 Respiratory Effort / Characteristics Accessory Muscle Use Gasping/Agonal Short of Breath Respiratory Depth Respiratory Pattern Blood Pressure 211/130 H Blood Pressure [Right Arm] 211/130 H Blood Pressure Mean 157 Blood Pressure Mean [Right Arm] 157 Blood Pressure Position Pulse Oximetry 95 92 93 Oxygen Delivery Method Room Air Room Air Fraction of Inspired Oxygen 12/11/18 15:31 12/11/18 15:39 12/11/18 15:53 Temperature Temperature Source Sepsis Recent Fever Within 48 Hours Sepsis Action Taken by Nursing Pulse Rate 137 H 133 H 105 H Pulse Rate [Right Apical] Pulse Rate from SpO2 Sensor 138 H 104 H Respiratory Rate 16 31 H Respiratory Effort / Characteristics Accessory Muscle Use Short of Breath Respiratory Depth Normal Respiratory Pattern Regular Blood Pressure 203/177 H 147/101 H Blood Pressure [Right Arm] Blood Pressure Mean 185 116 Blood Pressure Mean [Right Arm] Blood Pressure Position Pulse Oximetry 90 94 100 Oxygen Delivery Method Fraction of Inspired Oxygen 40 12/11/18 16:18 Temperature Temperature Source Sepsis Recent Fever Within 48 Hours Sepsis Action Taken by Nursing Pulse Rate 107 H Pulse Rate [Right Apical] Pulse Rate from SpO2 Sensor 106 H Respiratory Rate Respiratory Effort / Characteristics Respiratory Depth Respiratory Pattern Blood Pressure 132/98 Blood Pressure [Right Arm] Blood Pressure Mean 109 Blood Pressure Mean [Right Arm] Blood Pressure Position Pulse Oximetry 98 Oxygen Delivery Method Fraction of Inspired Oxygen GENERAL: Mild to moderate distress secondary to dyspnea. HEENT: No acute trauma, normocephalic atraumatic, mucous membranes moist, no nasal congestion, no scleral icterus. NECK: No stridor, no adenopathy, no meningismus, trachea is midline. LUNGS: Increased respiratory rate, crackles at both bases more so on right, scattered wheezes are heard. HEART: Tachycardic, subtle systolic murmur, regular rhythm ABDOMEN: Soft, nontender, bowel sounds positive, no hernias, no peritonitis. EXTREMITIES: Wraps on both lower extremity with edema present, no cyanosis, no deformities. NEUROLOGIC: Oriented x 3, no acute motor or sensory deficits, no focal weakness. SKIN: No rash, no jaundice, no diaphoresis. Course 1410: Past medical records reviewed. The patient was evaluated in room C7. A complete history and physical exam was performed. 1513: I re-checked the patient. She still seems short of breath. I am going to try BiPAP on the patient. 1555: I re-checked the patient. The patients heart rate and blood pressure is now better. The patient states that she is more comfortable now. 1558: I reviewed the patient's case with ESTEFANÍA Jacobs. She will evaluate the patient for further management. 1710 Consultations Consultation #1: I reviewed the patient's case with TAMMY Jacobs. She will evaluate the patient for further management. Time: 15:58 Administered Medications Apixaban (Eliquis) 5 mg PO BID ART Stop: 01/10/19 20:59 Last Admin: 12/11/18 20:18 Dose: 5 mg Documented by: [id number] Fluticasone Propionate (Flonase) 2 sprays SHELLY BID ART Stop: 01/10/19 20:59 Last Admin: 12/11/18 20:17 Dose: 2 sprays Documented by: [id number] Folic Acid (Folvite) 1 mg PO HS ART Stop: 01/10/19 20:59 Last Admin: 12/11/18 20:18 Dose: 1 mg Documented by: [id number] Hydroxychloroquine Sulfate (Plaquenil) 400 mg PO PM ART Stop: 01/10/19 20:59 Last Admin: 12/11/18 20:20 Dose: 400 mg Documented by: [id number] Nitroglycerin (Nitro-Bid 2%) 1 inch EXT Q6H ART Stop: 01/10/19 21:59 Last Admin: 12/11/18 22:00 Dose: 1 inch Documented by: [id number] Prednisone (Prednisone) 5 mg PO HS ART Stop: 01/10/19 20:59 Last Admin: 12/11/18 20:19 Dose: 5 mg Documented by: [id number] Sertraline HCl (Zoloft) 100 mg PO HS ART Stop: 01/10/19 20:59 Last Admin: 12/11/18 20:19 Dose: 100 mg Documented by: [id number] Sodium Chloride ([place] Nasal) 2 sprays SHELLY QPM ART Stop: 01/10/19 20:59 Last Admin: 12/11/18 20:30 Dose: 2 sprays Documented by: [id number] Trazodone HCl (Desyrel) 100 mg PO HS ART Stop: 01/10/19 20:59 Last Admin: 12/11/18 20:19 Dose: 100 mg Documented by: [id number] Discontinued Medications Albuterol (Duoneb) 3 ml INH NOW STA Stop: 12/11/18 14:15 Last Admin: 12/11/18 14:26 Dose: 3 ml Documented by: [id number] Furosemide (Lasix) 40 mg IV NOW STA Stop: 12/11/18 15:48 Last Admin: 12/11/18 15:55 Dose: 40 mg Documented by: [id number] Sodium Chloride (Nss) 250 mls @ 999 mls/hr IV .Q16M ONE Stop: 12/11/18 14:29 Last Infusion: 12/11/18 16:20 Dose: 0 mls/hr Documented by: [id number] Admin: 12/11/18 15:04 Dose: 999 mls/hr Documented by: [id number] Methylprednisolone 60 mg/ (Syringe) 1.96 mls @ 1.5 mls/min IV NOW STA Stop: 12/11/18 14:15 Last Admin: 12/11/18 15:04 Dose: 1.5 mls/min Documented by: [id number] Cefepime HCl (Maxipime) 2,000 mg in 20 mls @ 5 mls/min IV NOW STA; Protocol Stop: 12/11/18 15:06 Last Admin: 12/11/18 15:46 Dose: 5 mls/min Documented by: [id number] Acetaminophen (Ofirmev) 1,000 mg in 100 mls @ 400 mls/hr IV NOW STA Stop: 12/11/18 16:52 Last Infusion: 12/11/18 19:21 Dose: 0 mls/hr Documented by: [id number] Admin: 12/11/18 16:55 Dose: 400 mls/hr Documented by: [id number] Labetalol HCl (Normodyne) 10 mg IV NOW STA Stop: 12/11/18 15:21 Last Admin: 12/11/18 15:46 Dose: 10 mg Documented by: [id number] Cosigned by: [id number] Labetalol HCl (Normodyne) 10 mg IV NOW STA Stop: 12/11/18 16:52 Last Admin: 12/11/18 16:55 Dose: 10 mg Documented by: [id number] Cosigned by: [id number] Methylprednisolone (Solumedrol) Confirm Administered Dose 125 mg .ROUTE .STK-MED ONE Stop: 12/11/18 15:03 Last Admin: 12/11/18 15:04 Dose: Not Given Documented by: [id number] Nitroglycerin (Nitro-Bid 2%) 2 inch EXT NOW STA Stop: 12/11/18 15:16 Last Admin: 12/11/18 15:45 Dose: 2 inch Documented by: [id number] Medical Decision Making Differential Diagnosis Differential diagnosis includes: pneumonia, CHF, bronchitis, dysarthria, A fib, A flutter, IA, PE, anemia, dehydration, electrolyte abnormality, and sepsis Medical Records Attestation: I reviewed the patient's medical records. Home Medications Current Medication List: was personally reviewed by me Laboratory Data Attestation: I reviewed the patient's lab results. Result diagrams: 12/11/18 15:00 12/11/18 15:00 Lab Results 12/11/18 12/11/18 12/11/18 Range/Units 15:00 15:00 15:00 WBC 11.86 H (4.8-10.8) K/uL RBC 4.67 (4.2-5.4) M/uL Hgb 13.1 (12.0-16.0) g/dL Hct 39.0 (37-47) % MCV 83.5 (80-100) fL MCH 28.1 (25-34) pg MCHC 33.6 (32-36) g/dL RDW Std Deviation 44.9 (36.4-46.3) fL RDW Coeff of Eduardo 14.8 H (11.5-14.5) % Plt Count 279 (130-400) K/uL MPV 10.1 (7.4-10.4) fL Immature Gran % (Auto) 0.5 % Neut % (Auto) 72.2 % Lymph % (Auto) 14.0 % Summers % (Auto) 12.7 % Eos % (Auto) 0.3 % Baso % (Auto) 0.3 % Immature Gran # (Auto) 0.06 H (0.00-0.02) K/uL Neut # (Auto) 8.55 H (1.4-6.5) K/uL Lymph # (Auto) 1.66 (1.2-3.4) K/uL Summers # (Auto) 1.51 H (0.11-0.59) K/uL Eos # (Auto) 0.04 (0-0.5) K/uL Baso # (Auto) 0.04 (0-0.2) K/uL PT 11.5 (9.0-12.0) Seconds INR 1.1 (0.9-1.1) APTT 27.6 (21.0-31.0) Seconds PTT Ratio 1.0 Sodium 140 (136-145) mmol/L Potassium 3.7 (3.5-5.1) mmol/L Chloride 110 H (98-107) mmol/L Carbon Dioxide 22 (21-32) mmol/L Anion Gap 7.0 (3-11) BUN 16 (7-18) mg/dl Creatinine 1.01 (0.6-1.2) mg/dl Est Cr Clr Drug Dosing 95.6 ml/min Est GFR ( Amer) 74.6 Est GFR (Non-Af Amer) 64.4 BUN/Creatinine Ratio 15.7 (10-20) Glucose 114 H (70-99) mg/dl Lactate (0.4-2.0) mmol/L Calcium 8.9 (8.5-10.1) mg/dl Magnesium 2.2 (1.8-2.4) mg/dl Total Bilirubin 0.8 (0.2-1) mg/dl AST 31 (15-37) U/L ALT 42 (12-78) U/L Alkaline Phosphatase 78 (45-117) U/L Troponin I 0.079 H* (0-0.045) ng/ml NT-Pro-B Natriuret Pep 7758 H (0-900) pg/ml Total Protein 7.6 (6.4-8.2) gm/dl Albumin 4.1 (3.4-5.0) gm/dl Globulin 3.5 (2.5-4.0) gm/dl Albumin/Globulin Ratio 1.2 (0.9-2) 12/11/18 Range/Units 15:00 WBC (4.8-10.8) K/uL RBC (4.2-5.4) M/uL Hgb (12.0-16.0) g/dL Hct (37-47) % MCV (80-100) fL MCH (25-34) pg MCHC (32-36) g/dL RDW Std Deviation (36.4-46.3) fL RDW Coeff of Eduardo (11.5-14.5) % Plt Count (130-400) K/uL MPV (7.4-10.4) fL Immature Gran % (Auto) % Neut % (Auto) % Lymph % (Auto) % Summers % (Auto) % Eos % (Auto) % Baso % (Auto) % Immature Gran # (Auto) (0.00-0.02) K/uL Neut # (Auto) (1.4-6.5) K/uL Lymph # (Auto) (1.2-3.4) K/uL Summers # (Auto) (0.11-0.59) K/uL Eos # (Auto) (0-0.5) K/uL Baso # (Auto) (0-0.2) K/uL PT (9.0-12.0) Seconds INR (0.9-1.1) APTT (21.0-31.0) Seconds PTT Ratio Sodium (136-145) mmol/L Potassium (3.5-5.1) mmol/L Chloride (98-107) mmol/L Carbon Dioxide (21-32) mmol/L Anion Gap (3-11) BUN (7-18) mg/dl Creatinine (0.6-1.2) mg/dl Est Cr Clr Drug Dosing ml/min Est GFR ( Amer) Est GFR (Non-Af Amer) BUN/Creatinine Ratio (10-20) Glucose (70-99) mg/dl Lactate 2.1 H* (0.4-2.0) mmol/L Calcium (8.5-10.1) mg/dl Magnesium (1.8-2.4) mg/dl Total Bilirubin (0.2-1) mg/dl AST (15-37) U/L ALT (12-78) U/L Alkaline Phosphatase (45-117) U/L Troponin I (0-0.045) ng/ml NT-Pro-B Natriuret Pep (0-900) pg/ml Total Protein (6.4-8.2) gm/dl Albumin (3.4-5.0) gm/dl Globulin (2.5-4.0) gm/dl Albumin/Globulin Ratio (0.9-2) Imaging Data Radiologist's Impression: Radiology results as stated below per my review and the radiologist's interpretation: XR chest 1V portable HISTORY: 53 years-old Female sob acute shortness of breath COMPARISON: Chest radiographs 10/02/2018 TECHNIQUE: Portable AP view of the chest FINDINGS: Cardiac silhouette is enlarged. Pulmonary vascular congestion with interstitial coarsening. Trace pleural effusions with bibasilar opacities. No pneumothorax. Degenerative changes of the shoulders and spine. IMPRESSION: 1. Cardiomegaly with pulmonary edema pattern. 2. Trace pleural effusions with bibasilar opacities suggestive of probable atelectasis. The above report was generated using voice recognition software. It may contain grammatical, syntax or spelling errors. Electronically signed by: Osito Andrew M.D. 12/11/2018 3:[address] chest wo con CT DOSE: 952.84 mGy.cm CLINICAL HISTORY: 53 years-old Female with sob, poss infiltrate or fluid. Acute shortness of breath with bibasilar opacities on chest radiograph of same day TECHNIQUE: Multiaxial CT images of the chest were performed without contrast. A dose lowering technique was utilized adhering to the principles of ALARA. COMPARISON: Chest radiograph of same day, chest CT 12/29/2013 FINDINGS: There is no focal thyroid nodule identified. Mild to moderate cardiomegaly with trace pericardial effusion. Coronary arterial calcifications are noted. No thoracic aortic aneurysm. Mildly enlarged paratracheal and subcarinal lymph nodes measure up to 10 mm in short axis. Small bilateral pleural effusions. No pneumothorax. Mild intralobular septal thickening is noted bilaterally. Patchy alveolar opacities are noted bilaterally, most pronounced within the right greater than left lower lobes. Mild subsegmental bibasilar atelectasis. Central airways appear patent. The study is mildly degraded secondary to respiratory motion artifact. Wall thickening about the distal esophagus. Hepatomegaly with hepatic steatosis. Varices noted about the anterior lower chest and upper abdominal wall. Breast parenchyma is unremarkable. Degenerative changes are seen about the shoulders and spine. No suspicious bone lesions. No acute fracture. IMPRESSION: 1. Cardiomegaly with mild pulmonary edema, trace pericardial effusion and small bilateral pleural effusions. 2. Scattered bilateral alveolar opacities are suspicious for superimposed multif ocal pneumonia. Follow-up imaging to document resolution is recommended. 3. Mild mediastinal adenopathy, likely reactive. 4. Hepatic steatosis. Electronically signed by: Osito Andrew M.D. 12/11/2018 4:56 PM ECG Data Attestation: I personally reviewed and interpreted this ECG as follows: Indication: SOB/dyspnea Rate (beats per minute): 132 Rhythm: sinus tachycardia Findings: + other (poor R-wave progression); no PVC and no ST elevation Comparison ECG Date: from (10/02/18) Change: the following changes noted (rate has increased) Blood Pressure Blood Pressure Findings: Elevated blood pressure Blood Pressure Disposition: further management by hospitalist YAHIR Narrative There is a mild leukocytosis which could be consistent with infection. No concerning anemia. No coagulopathy. Renal panel testing does not show evidence for kidney failure or for significant electrolyte abnormality. Lactic acid le bhumika was not elevated making severe sepsis less likely. No liver enzyme elevation. BNP was elevated consistent with fluid overload. EKG showed a sinus tachycardia, no acute ischemia. Cardiac enzyme testing x1 was slightly elevated, this finding is concerning for cardiac injury or strain. Chest film shows what appears to be a right lower lung pneumonia plus some fluid overload/CHF. Blood cultures are pending. Chest CT shows some mild CHF and lower lung pneumonia, much worse on the right. The patient presented in some respiratory distress. She was tachycardic and looked to be having a hard time getting her breath. She was given a DuoNeb. The patient received IV labetalol, 2 doses were actually given to control the heart rate and blood pressure. She received IV cefepime as antibiotic coverage. She received IV Solu-Medrol to help with the bronchospasm/wheezing. She received IV Lasix to promote diuresis. She was given Nitropaste because of the fluid overload. She was eventually placed on BiPAP to aid her breathing. She received IV Tylenol for pain. She received a small amount of IV saline. With the above treatment regimen, the patient's heart rate is in the 90s. Her b lood pressure is improving. She is no longer short of breath and seems to be breathing much easier. She is diuresing. The patient requires a hospital stay. She has pneumonia and a touch of fluid o verload. This has caused her breathing difficulty. I did speak to the patient and case management. The on-call hospitalist was consulted Impression & Plan Respiratory distress, CHF (congestive heart failure), Tachycardia, Elevated tro ponin, Pneumonia Critical Care Time Critical Care Time: Yes I have personally spent 42 minutes of critical care time in the direct management of this patient. This includes bedside care, interpretation of diagnostic studies, and testing, discussion with consultants, patient, and family members, and other required patient management activities. This 42 minutes is in excess of all separately billable procedures. Discharge Plan Visit Data *Final* Discharge Date/Time: 12/11/18 17:41 Chief Complaint: Shortness of Breath/Dyspnea Stated Complaint: SHORT OF BREATH,COUGHING UP BLOO ED Provider: Cayden Benoit Discharge Problem: Respiratory distress, CHF (congestive heart failure), Tachycardia, Elevated troponin, Pneumonia Patient Disposition: Admitted As Inpatient Discharge Instructions Interventions: ED Discharge Assessment Last Done: 12/11/18 17:41 Discharge Problem: CHF (congestive heart failure) Qualifiers: Heart failure type: unspecified Heart failure chronicity: acute Qualified Code (s): I50.9 - Heart failure, unspecified Pneumonia Qualifiers: Pneumonia type: due to unspecified organism Laterality: bilateral Lung location: lower lobe of lung Qualified Code(s): J18.1 - Lobar pneumonia, unspecified organism The clarisseibe's documentation has been prepared under my direction and personally reviewed by me in its entirety. I confirm that the note above accurately reflects all work, treatment, procedures, and medical decision making performed by me.
[2018-12-11] MEDS ORDERED: methylPREDNISolone 125 MG/2 ML VIAL ONE (15:02)
[2018-12-11] MEDS ORDERED: CEFEPIME 2,000 MG/20 ML VIAL IV STA (15:03)
[2018-12-11 15:13] LABS: Basophils # (auto) 0.04 K/uL (0-0.2); Basophils % (auto) 0.3 %; Eosinophils # (auto) 0.04 K/uL (0-0.5); Eosinophils % (auto) 0.3 %; Hemoglobin 13.1 g/dL (12.0-16.0); Immature Granulocytes # (auto) 0.06 K/uL (0.00-0.02); Immature Granulocytes % (auto) 0.5 %; Lymphocytes # (auto) 1.66 K/uL (1.2-3.4); Mean Corpuscular Hemoglobin 28.1 pg (25-34); Mean Corpuscular Hgb Conc 33.6 g/dL (32-36); Mean Corpuscular Volume 83.5 fL (80-100); Mean Platelet Volume 10.1 fL (7.4-10.4); Monocytes # (auto) 1.51 K/uL (0.11-0.59); Monocytes % (auto) 12.7 %; Neutrophils # (auto) 8.55 K/uL (1.4-6.5); Neutrophils % (auto) 72.2 %; Platelet Count 279 K/uL (130-400); RDW Coefficient of Variation 14.8 % (11.5-14.5); RDW Standard Deviation 44.9 fL (36.4-46.3); Red Blood Count 4.67 M/uL (4.2-5.4); White Blood Count 11.86 K/uL (4.8-10.8)
--- NOTE | 2018-12-11 15:13 | XRay Report ---
XR chest 1V portable HISTORY: 53 years-old Female sob acute shortness of breath COMPARISON: Chest radiographs 10/02/2018 TECHNIQUE: Portable AP view of the chest FINDINGS: Cardiac silhouette is enlarged. Pulmonary vascular congestion with interstitial coarsening. Trace ple ural effusions with bibasilar opacities. No pneumothorax. Degenerative changes of the shoulders and s pine. IMPRESSION: 1. Cardiomegaly with pulmonary edema pattern. 2. Trace pleural effusions with bibasilar opacities suggestive of probable atelectasis. The above report was generated using voice recognition software. It may contain grammatical, syntax o r spelling errors. Electronically signed by: Osito Andrew M.D. 12/11/2018 3:11 PM
[2018-12-11] MEDS ORDERED: NITROGLYCERIN 2% OINTMENT 30GM TUBE EXT STA (15:15)
[2018-12-11] MEDS ORDERED: LABETALOL HCL IV 5 MG/ML 20ML IV STA ×2 (15:20→16:51)
[2018-12-11 15:23] LABS: INR 1.1 (0.9-1.1); Partial Thromboplastin Time 27.6 Seconds (21.0-31.0); Prothrombin Time 11.5 Seconds (9.0-12.0)
[2018-12-11 15:29] LABS: Albumin Level 4.1 gm/dl (3.4-5.0); BUN Creatinine Ratio 15.7 (10-20); Calcium 8.9 mg/dl (8.5-10.1); Creatinine Clr Calc Pharmacy 95.6 ml/min; Est GFR (African American) 74.6; Est GFR (Non-African American) 64.4; Magnesium 2.2 mg/dl (1.8-2.4); Potassium 3.7 mmol/L (3.5-5.1)
[2018-12-11 15:40] LABS: Albumin Globulin Ratio 1.2 (0.9-2); Bilirubin,Total 0.8 mg/dl (0.2-1); Globulin 3.5 gm/dl (2.5-4.0); Total Protein 7.6 gm/dl (6.4-8.2); Troponin I 0.079 ng/ml (0-0.045)
[2018-12-11] MEDS ORDERED: FUROSEMIDE 40 MG/4 ML VIAL IV STA (15:47)
[2018-12-11] MEDS ORDERED: ACETAMINOPHEN 1,000 MG/100 ML VIAL IV STA (16:38)
[2018-12-11] MEDS ORDERED: ADENOSINE IV SOLN 3 MG/ML 2 ML VIAL IV ONE (16:41)
--- NOTE | 2018-12-11 16:57 | CT Scan Report ---
CT chest wo con CT DOSE: 952.84 mGy.cm CLINICAL HISTORY: 53 years-old Female with sob, poss infiltrate or fluid. Acute shortness of breath with bibasilar opacities on chest radiograph of same day TECHNIQUE: Multiaxial CT images of the chest were performed without contrast. A dose lowering techni que was utilized adhering to the principles of ALARA. COMPARISON: Chest radiograph of same day, chest CT 12/29/2013 FINDINGS: There is no focal thyroid nodule identified. Mild to moderate cardiomegaly with trace pericardial eff usion. Coronary arterial calcifications are noted. No thoracic aortic aneurysm. Mildly enlarged parat lorena and subcarinal lymph nodes measure up to 10 mm in short axis. Small bilateral pleural effusio ns. No pneumothorax. Mild intralobular septal thickening is noted bilaterally. Patchy alveolar opacit ies are noted bilaterally, most pronounced within the right greater than left lower lobes. Mild subs egmental bibasilar atelectasis. Central airways appear patent. The study is mildly degraded secondary to respiratory motion artifact. Wall thickening about the distal esophagus. Hepatomegaly with hepatic steatosis. Varices noted about the anterior lower chest and upper abdominal wall. Breast parenchyma is unremarkable. Degenerative ch anges are seen about the shoulders and spine. No suspicious bone lesions. No acute fracture. IMPRESSION: 1. Cardiomegaly with mild pulmonary edema, trace pericardial effusion and small bilateral pleural eff usions. 2. Scattered bilateral alveolar opacities are suspicious for superimposed multifocal pneumonia. Follo w-up imaging to document resolution is recommended. 3. Mild mediastinal adenopathy, likely reactive. 4. Hepatic steatosis. Electronically signed by: Osito Andrew M.D. 12/11/2018 4:56 PM
--- NOTE | 2018-12-11 17:17 | History & Physical Report ---
Date of Service December 11, 2018 Assessment & Plan (1) Respiratory distress: (2) CHF (congestive heart failure): (3) PNA (pneumonia): (4) Elevated troponin: Patient presented to ER with complaint of shortness of breath and productive cough, shortness of breath increased today. In ER patient afebrile, peak: 132, RR: 31, BP 179/117, 94% on room air. WBC: 1.8, lactate: 2.1, H/H: 13/39, BUN: 60, CR: 1.0 (baseline 0.9), GFR: 64, glucose: 114, troponin 0 0.079, BNP: 7758 CT chest without contrast:Cardiomegaly with mild pulmonary edema, trace pericardial effusion and small bilateral pleural effusions. Scattered bilateral alveolar opacities are suspicious for superimposed multifocal pneumonia. Mild mediastinal adenopathy, likely reactive. Respiratory distress secondary to CHF and community-acquired pneumonia Elevated troponin likely demand ischemia -In ER patient was placed on BiPAP with improvement of respiratory distress -In ER patient given DuoNeb, Solu-Medrol 60 mg IV, cefepime, 250 mL NSS, labetalol 10 mg IV, Lasix 40 mg IV, Nitropaste 2 inches -Repeat lactic acid: 1.4 -Cefepime -Echo -Nitropaste 1 inch every 6 hours -Monitor I's and O's -Trend troponin -If no improvement or worsening consider cardiology consult -CBC, BMP in a.m. (5) HTN (hypertension): Patient with hypertension in ER and was given labetalol IV, 2 inches of Nitropaste, Lasix 40 mg BP is trending down and anticipate will become normotensive with further d iuresis -Nitropaste 1 inch every 6 hours -Continue losartan (6) Venous stasis ulcers of both lower extremities: Following with wound clinic and having home health nurses for BLE wounds On clindamycin and cefdinir, will hold is receiving cefepime currently -Wound nurse consult (7) Systemic lupus: -Continue prednisone, Plaquenil (8) History of pulmonary embolism: (9) [facility] current use of 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: History of PE in the 90s and has been on anticoagulation since. S/P IVC filter -On Eliquis, may need to consider different agent as BMI>40 (10) Depression: -Continue Zoloft DVT Prophylaxis -On Eliquis Full Code as per discussion with pt Follows with Dr Muñoz for routine care Pt was seen and care coordinated with Dr Chacon. See addendum History of Present Illness Chief Complaint: SOB Primary Care Provider: Deborha Muñoz, DO Pt is 53 y/o F with PMH SLE, antiphospholipid antibody, PE on Eliquis, h/o IVC filter, h/o ITP, HTN, dyslipidemia, CKD III, obesity, venous stasis with pedal edema, depression presented to ER with complaint of increased shortness of breath. Patient reports past week with shortness of breath which is increased over the past couple days. Also reports yellow productive cough and last night was blood tinged. Patient states took her morning medicines today however she vomited shortly after taking. Patient states his been feeling hot. Today having chest tightness. Reports grandchildren have had nasal congestion that she thought was secondary to allergies. Denies recent travel. She states chronic bilateral extremity wounds that she follows with wound clinic and has home health wrapping her legs. Patient is on clindamycin and cefdinir for extremity wounds. Reports bronchitis approx one month ago. Denies hx known CAD, CHF. Denies fever, diarrhea, constipation, EDURADO, dizziness, syncope, vision changes, neck pain, palpitations, sore throat, choking, otalgia, abdominal pain, paresthesias, increased extremity edema, rashes, urinary symptoms. In ER patient noted to be in respiratory distress with tachypnea, tachycardia and hypertension. Patient was placed on BiPAP, was given Duoneb, Solumedrol 60mg IV, cefepime, 250ml NSS, labetalol 10mg IV x 2 doses, lasix 40mg IV, Nitropaste 2". Allergies Allergy/AdvReac Type Severity Reaction Status Date / Time heparin Allergy Severe HIT R/O Verified 12/11/18 15:50 from last hospital admission - rather was dx w/ ITP vancomycin Allergy Intermediate RASH Verified 12/11/18 15:50 tetracycline Allergy Mild RASH, Verified 12/11/18 15:50 PRURITIS amlodipine Allergy Unknown Unknown Verified 12/11/18 15:50 bacitracin Allergy Unknown Unknown Verified 12/11/18 15:50 doxycycline Allergy Unknown UNKNOWN Verified 12/11/18 15:50 polymyxin B Allergy Unknown Unknown Verified 12/11/18 15:50 Home Medications Home Medications Medication Instructions Recorded Confirmed Type acetaminophen 500 mg tablet 1,000 mg PO Q8H PRN tab 01/05/18 12/11/18 History apixaban 5 mg tablet 5 mg PO BID tab 01/05/18 12/11/18 History belimumab 400 mg intravenous 1,200 mg IV UD ea 01/05/18 12/11/18 History solution calcium carbonate 500 mg (1,250 1 tab PO QAM tab 01/05/18 12/11/18 History mg)-vitamin D3 200 unit tablet calcium carbonate 500 mg calcium 1,000 mg PO DAILY tab 01/05/18 12/11/18 History (1,250 mg) chewable tablet diphenhydramine 25 mg tablet 25 mg PO Q6H PRN tab 01/05/18 12/11/18 History famotidine 20 mg tablet 20 mg PO DAILY 01/05/18 12/11/18 History fluticasone propionate 50 2 sprays INTNAS BID gm 01/05/18 12/11/18 History mcg/actuation nasal spray,suspension folic acid 1 mg tablet 1 mg PO HS 01/05/18 12/11/18 History hydroxychloroquine 200 mg tablet 400 mg PO PM tab 01/05/18 12/11/18 History multivitamin with minerals capsule 1 cap PO QAM cap 01/05/18 12/11/18 History prednisone 5 mg tablet 5 mg PO HS 01/05/18 12/11/18 History sertraline 100 mg tablet 100 mg PO HS 01/05/18 12/11/18 History sodium chloride 0.65 % nasal spray 2 sprays INTNAS QPM ml 01/05/18 12/11/18 History aerosol trazodone 50 mg tablet 100 mg PO HS tab 01/05/18 12/11/18 History clindamycin HCl 300 mg capsule 300 mg PO BID #60 cap 05/13/18 12/11/18 Rx cefdinir 300 mg capsule 300 mg PO Q12H #60 cap 11/17/18 12/11/18 Rx losartan 100 mg PO DAILY 12/11/18 12/11/18 History Past Med/Surg History Medical History History of pulmonary embolism (Chronic) HTN (hypertension) (Chronic) PNA (pneumonia) (Acute) Venous stasis ulcers of both lower extremities (Acute) Chronic venous insufficiency (Chronic) History of idiopathic thrombocytopenic purpura (Chronic) 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) Anemia (Chronic) GERD (gastroesophageal reflux disease) (Chronic) Depression (Chronic) CKD (chronic kidney disease), stage III (Chronic) Hypercoagulable state (Chronic) "protein C deficiency, positive phospholipid AB syndrome, positive lupus 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" Systemic lupus (Chronic) Arteriovenous fistula (Chronic) DVT (deep venous thrombosis) (Chronic) Diabetes (Chronic) Chaim filter in place (Chronic) HTN (hypertension) (Chronic) Surgical History History of cholecystectomy (Chronic) H/O hernia repair (Chronic) S/P appendectomy (Chronic) S/P insertion of IVC (inferior vena caval) filter (Chronic) H/O exploratory laparotomy (Chronic) S/P section (Chronic) S/P cholecystectomy (Chronic) S/P hysterectomy (Chronic) Family History Mother Colorectal cancer 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 History 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 Beliefs That Will Affect Care: None Current Living Situation: Other Current Living Situation Comment: friends Feels Safe at Home: Yes Safety Concerns: Feels Safe At This Time Smoking Status: Never smoker Hx Alcohol Use: Yes Hx Substance Use: No Review of Systems Review of Systems: All systems reviewed & are unremarkable except as noted in HPI & below Physical Exam Physical Exam: General: On bipap currently without respiratory distress, obese Head: normocephalic, atraumatic Eyes: PERRL, EOM's intact, conjunctiva non-injected, anicteric ENT: normal inspection external ears, nose, mucous membranes moist Neck: supple, trachea midline Lungs:On bipap with R: 24, pulse ox 98%, rales at bases CV: regular, rate 110, systolic murmur Abd: normal BS, soft, non-tender Ext: BLE with dressings in place Neuro: A&O x 3, no focal deficits noted, normal affect Skin: warm, dry Results & Data Vital Signs (Past 12 Hours) Vital Signs Temp Pulse Pulse Resp BP BP Pulse Ox 12/11/18 16:43 115 H 150/107 H 96 12/11/18 16:18 107 H 132/98 98 12/11/18 15:53 105 H 147/101 H 100 12/11/18 15:39 133 H 31 H 94 12/11/18 15:31 137 H 16 203/177 H 90 12/11/18 15:28 138 H 18 211/130 H 93 12/11/18 15:25 130 H 30 H 211/130 H 92 12/11/18 14:27 119 H 26 H 95 12/11/18 14:02 36.7 C 132 H 22 179/117 H 94 Laboratory Results Short CBC 12/11/18 Range/Units 15:00 WBC 11.86 H (4.8-10.8) K/uL Hgb 13.1 (12.0-16.0) g/dL Hct 39.0 (37-47) % Plt Count 279 (130-400) K/uL BMP 12/11/18 15:00 Sodium 140 Potassium 3.7 Chloride 110 H Carbon Dioxide 22 BUN 16 Creatinine 1.01 Glucose 114 H Calcium 8.9 Cardiac Enzymes 12/11/18 Range/Units 15:00 Troponin I 0.079 H* (0-0.045) ng/ml Liver Function 12/11/18 Range/Units 15:00 Total Bilirubin 0.8 (0.2-1) mg/dl AST 31 (15-37) U/L ALT 42 (12-78) U/L Alkaline Phosphatase 78 (45-117) U/L Albumin 4.1 (3.4-5.0) gm/dl Diagnostic Findings CXR: IMPRESSION: 1. Cardiomegaly with pulmonary edema pattern. 2. Trace pleural effusions with bibasilar opacities suggestive of probable atelectasis. CT CHEST W/O CONTRAST: IMPRESSION: 1. Cardiomegaly with mild pulmonary edema, trace pericardial effusion and small bilateral pleural effusions. 2. Scattered bilateral alveolar opacities are suspicious for superimposed multifocal pneumonia. Follow-up imaging to document resolution is recommended. 3. Mild mediastinal adenopathy, likely reactive. 4. Hepatic steatosis. Supervising Physician Co-Signing Physician Notes I have seen and examined the patient and have discussed the case with the provider above. I agree with the assessment and plan as stated. 53 yo F obese with fluid overload and acute respiratory failure requiring BIPAP. She has been feeling poorly for several days and reports a productive cough of yellow mucous as well as increasing shortness of breath. Workup reveals no evidence of decreased cell lines, or kidney involvement so do not believe this is related to a lupus flare. She remains on chronic prednisone. CT chest revealed pulmonary edema and a multifocal pneumonia. She does not appear septic despite meeting SIRS criteria and having an infection. Cont cefepime. Lasix 40mg IV given in the ER with subsequent 1600mls diuresis within a few hours in this Lasix naive patient. BP and hemodynamics improved greatly with the nitro given in the ER. She was able to come off the BIPAP but preferred to have it on tonight while she slept as it helps with her cough. Will offer Mickie for cough support, also. Agree with echo in am and continued diuresis carefully, monitoring renal function daily until euvolemic and improved clinically. DO Oswaldo (1) CHF (congestive heart failure) Heart failure chronicity: acute Heart failure type: unspecified Qualified Code(s): I50.9 - Heart failure, unspecified
[2018-12-11] MEDS ORDERED: ONDANSETRON INJ 2 MG/ML 2 ML VIAL IV PRN (17:40)
[2018-12-11] MEDS ORDERED: ACETAMINOPHEN 325 MG TAB PO PRN (17:40)
[2018-12-11] MEDS ORDERED: POLYETHYLENE (MIRALAX) 17 GM PACK PO PRN (17:40)
[2018-12-11] MEDS ORDERED: CEFEPIME CONSULT ACTIVE PRN (18:24)
[2018-12-11] MEDS: FLUTICASONE PROPIONATE NA SPR 16 GM BTL NAE SCH (20:17)
[2018-12-11] MEDS: FOLIC ACID 1 MG TAB PO SCH (20:18)
[2018-12-11] MEDS: APIXABAN 5 MG TABLET PO SCH (20:18)
[2018-12-11] MEDS: TRAZODONE HCL 50 MG TAB PO SCH (20:19)
[2018-12-11] MEDS: predniSONE 5 MG TAB PO SCH (20:19)
[2018-12-11] MEDS: SERTRALINE HCL 100 MG TABLET PO SCH (20:19)
[2018-12-11] MEDS: HYDROXYCHLOROQUINE SULFATE 200 MG TAB PO SCH (20:20)
[2018-12-11] MEDS: SODIUM CHLORIDE 0.65% NA SOLN 45 ML (OCEAN) NAE SCH (20:30)
[2018-12-11] MEDS: NITROGLYCERIN 2% OINTMENT 30GM TUBE EXT SCH (22:00)
[2018-12-11] MEDS: CEFEPIME 2,000 MG in SYRINGE 7.5 ML IV SCH (23:55)
[2018-12-12 04:09] LABS: BUN Creatinine Ratio 17.2 (10-20); Calcium 8.4 mg/dl (8.5-10.1); Creatinine Clr Calc Pharmacy 96.3 ml/min; Est GFR (African American) 75.5; Est GFR (Non-African American) 65.2
[2018-12-12 04:13] LABS: Troponin I 0.028 ng/ml (0-0.045)
[2018-12-12] MEDS: NITROGLYCERIN 2% OINTMENT 30GM TUBE EXT SCH ×4 (04:38→21:52)
[2018-12-12 04:46] LABS: Basophils # (auto) 0.01 K/uL (0-0.2); Basophils % (auto) 0.2 %; Hematocrit (blood only) 35.4 % (37-47); Hemoglobin 11.5 g/dL (12.0-16.0); Immature Granulocytes # (auto) 0.03 K/uL (0.00-0.02); Immature Granulocytes % (auto) 0.6 %; Lymphocytes # (auto) 0.61 K/uL (1.2-3.4); Lymphocytes % (auto) 11.3 %; Mean Corpuscular Hemoglobin 27.3 pg (25-34); Mean Corpuscular Volume 83.9 fL (80-100); Mean Platelet Volume 10.4 fL (7.4-10.4); Monocytes # (auto) 0.33 K/uL (0.11-0.59); Monocytes % (auto) 6.1 %; Neutrophils # (auto) 4.42 K/uL (1.4-6.5); Neutrophils % (auto) 81.8 %; Nucleated RBC # (auto) 0.02 K/uL (0-0); Nucleated RBC % (auto) 0.3 %; Platelet Count 215 K/uL (130-400); RDW Coefficient of Variation 14.7 % (11.5-14.5); RDW Standard Deviation 45.1 fL (36.4-46.3); Red Blood Count 4.22 M/uL (4.2-5.4)
[2018-12-12 04:54] LABS: Mean Corpuscular Hgb Conc 32.5 g/dL (32-36)
[2018-12-12 04:57] LABS: Potassium 3.5 mmol/L (3.5-5.1)
[2018-12-12 04:58] LABS: Magnesium 2.2 mg/dl (1.8-2.4)
[2018-12-12] MEDS: FLUTICASONE PROPIONATE NA SPR 16 GM BTL NAE SCH ×2 (08:07→19:32)
[2018-12-12] MEDS: CEFEPIME 2,000 MG in SYRINGE 7.5 ML IV SCH ×2 (08:07→15:54)
[2018-12-12] MEDS: LOSARTAN POTASSIUM 50 MG TAB PO SCH (08:07)
[2018-12-12] MEDS: APIXABAN 5 MG TABLET PO SCH ×2 (08:07→19:32)
[2018-12-12] MEDS: CALCIUM CARBONATE 500 MG CHEWABLE TAB PO SCH (08:08)
[2018-12-12] MEDS: FAMOTIDINE 20 MG TAB PO SCH (08:08)
[2018-12-12] MEDS: CEROVITE ADV FORMULA TAB PO SCH (08:08)
[2018-12-12] MEDS ORDERED: FUROSEMIDE 40 MG in SYRINGE 0 ML IV ONE ×2 (09:00→11:15)
[2018-12-12] MEDS ORDERED: XOPENEX/ATROVENT 0.63mg/0.5MG NEB COMBO NEB PRN (11:06)
[2018-12-12] MEDS ORDERED: LEVALBUTEROL HCL 0.63 MG/3 ML NEB NEB PRN (11:15)
[2018-12-12] MEDS ORDERED: IPRATROPIUM BROMIDE NEB SOLN 0.02% 2.5 ML VIAL INH PRN (11:15)
--- NOTE | 2018-12-12 12:52 | Hospitalist Progress Note ---
Date of Service December 12, 2018 Assessment & Plan (1) Respiratory distress: (2) PNA (pneumonia): Presented to ER with complaint of worsening shortness of breath associated with productive cough, Possible related to CHF exacerbation VS Pneumonia CXR showed cardiomegaly with pulmonary edema pattern. CT chest showed Cardiomegaly with mild pulmonary edema, trace pericardial effusion and small bilateral pleural effusions. Scattered bilateral alveolar opacities are suspicious for superimposed multifocal pneumonia. ProBNP 7758 Was placed on BiPap on admission Received Lasix 40mg IV on admission, solumedrol and IV cefepime Saturated on RA today will repeat CXR in am Clinically improves significantly (3) Acute CHF (congestive heart failure): Present with worsening SOB on exertion with minimal exertion Elevated BNP on admission 7758 CXR showed cardiomegaly with pulmonary edema pattern. Received Lasix 40mg IV, Will give an additional lasix 40mg IV today ECHO showed mild global hypokinesis of LV. Reduced LV systolic function with EF 45 %. Grade 2 diastolic dysfunction Monitor BMP while on lasix Will consult cardiology (4) Elevated troponin: Elevated troponin likely demand ischemia EKG showed no ischemic changes troponin trending down to normal Continue monitor (5) HTN (hypertension): Patient with hypertension in ER and was given labetalol IV, 2 inches of Nitropaste, Lasix 40 mg BP improves -Continue losartan (6) Venous stasis ulcers of both lower extremities: Following with wound clinic and having home health nurses for BLE wounds On clindamycin and cefdinir outpatient that placed since on cefepime currently Wound care consult Continue daily wound care (7) Systemic lupus: Continue prednisone, Plaquenil (8) History of pulmonary embolism: (9) Antiphospholipid antibody syndrome: (10) custodial current use of 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: History of PE in the 90s and has been on anticoagulation since. S/P IVC filter On Eliquis, may need to consider different agent as BMI>40 (11) Depression: Continue Zoloft Stable DVT Prophylaxis On Eliquis CODE STATUS Full Code Disposition Continue monitor in tele Subjective Pt was seen and examined Lying in bed with no distress Pt said that she feels much better She said that her breathing feels much better She is saturated well on RA Denies any chest pain, palpitation, dizziness and SOB Physical Exam Physical Exam: General- No acute distress Head- atraumatic Eyes- PERRL, EOMI, ENT- oropharynx clear Neck- supple, no JVD Lungs- clear to auscultation Heart- regular rhythm; +murmur Abdomen- normal bowel sounds, soft, nontender Extremities- BLE with dressings in place, +edema Neuro- alert, oriented x 3; PERRL, EOMI; no facial palsy; no dysarthria Skin- warm & dry Results & Data Vital Signs (Past 12 Hours) Vital Signs Temp Pulse Pulse Pulse Resp BP Pulse Ox 12/12/18 11:33 36.9 C 87 20 143/83 H 92 12/12/18 07:35 36.8 C 100 H 20 133/76 93 12/12/18 04:38 37.2 C 99 H 20 165/97 H 96 12/12/18 01:12 82 24 93
[2018-12-12] MEDS ORDERED: ADENOSINE IV SOLN 3 MG/ML 2 ML VIAL IV ONE ×2 (16:21→16:25)
[2018-12-12] MEDS ORDERED: METOPROLOL TARTRATE 1 MG/ML VIAL IV PRN (16:22)
[2018-12-12] MEDS: METOPROLOL TARTRATE 25 MG TAB PO SCH (17:04)
--- NOTE | 2018-12-12 17:51 | Communication Note ---
Date of Service: December 12, 2018 Called from nurse for Elevated HR in the 190. Pt was seen and examined at bedside. Pt said that she did not have any palpitation, but she said that she wa s coughing. Stat EKG done revealed SVT with HR in the 190. .Try valsalva maneuver, by advising pt to try to strain like she was trying to have a bowel movement with no improvement in the HR. Adenosine 6mg x1 given that broke the SVT and HR improved to 110's. Metoprolol 12.5 mg BID adding. Lopressor IV PRN adding for HR above 120. Received IV lasix today and K was 3.5. will give additional K 20meq. Cardiology consult pending. Continue monitor in tele.
[2018-12-12] MEDS ORDERED: POTASSIUM CHLORIDE 20 MEQ TABCR PO STA (17:58)
[2018-12-12] MEDS: SERTRALINE HCL 100 MG TABLET PO SCH (19:30)
[2018-12-12] MEDS: HYDROXYCHLOROQUINE SULFATE 200 MG TAB PO SCH (19:31)
[2018-12-12] MEDS: FOLIC ACID 1 MG TAB PO SCH (19:31)
[2018-12-12] MEDS: predniSONE 5 MG TAB PO SCH (19:32)
[2018-12-12] MEDS: SODIUM CHLORIDE 0.65% NA SOLN 45 ML (OCEAN) NAE SCH (19:32)
[2018-12-12] MEDS: TRAZODONE HCL 50 MG TAB PO SCH (19:32)
[2018-12-13] MEDS: CEFEPIME 2,000 MG in SYRINGE 7.5 ML IV SCH ×4 (00:05→23:56)
[2018-12-13] MEDS: NITROGLYCERIN 2% OINTMENT 30GM TUBE EXT SCH ×4 (04:49→22:32)
[2018-12-13 07:15] LABS: BUN Creatinine Ratio 25.7 (10-20); Calcium 8.9 mg/dl (8.5-10.1); Creatinine Clr Calc Pharmacy 86.8 ml/min; Est GFR (African American) 67.3; Est GFR (Non-African American) 58.1; Magnesium 2.4 mg/dl (1.8-2.4); Potassium 3.7 mmol/L (3.5-5.1)
--- NOTE | 2018-12-13 07:23 | XRay Report ---
XR chest 1V portable CLINICAL HISTORY: F/U COMPARISON STUDY: Chest radiograph and chest CT December 11, 2018. FINDINGS: There is no pneumothorax. Trace bilateral pleural effusions are noted. Interstitial thicken ing and bilateral opacities persist. Cardiomediastinal silhouette is stable. IMPRESSION: 1. Persistent interstitial thickening and bilateral opacities. Multifocal pneumonia is favored althou gh pulmonary edema could appear similar. 2. Trace bilateral pleural effusions. Electronically signed by: Gama Alexander M.D. 12/13/2018 7:21 AM
[2018-12-13] MEDS: FLUTICASONE PROPIONATE NA SPR 16 GM BTL NAE SCH ×2 (07:49→19:59)
[2018-12-13] MEDS: METOPROLOL TARTRATE 25 MG TAB PO SCH ×2 (07:49→19:59)
[2018-12-13] MEDS: FAMOTIDINE 20 MG TAB PO SCH (07:49)
[2018-12-13] MEDS: CALCIUM CARBONATE 500 MG CHEWABLE TAB PO SCH (07:50)
[2018-12-13] MEDS: APIXABAN 5 MG TABLET PO SCH (07:51)
[2018-12-13] MEDS: CEROVITE ADV FORMULA TAB PO SCH (07:51)
[2018-12-13] MEDS: LOSARTAN POTASSIUM 50 MG TAB PO SCH (07:51)
--- NOTE | 2018-12-13 13:21 | Hospitalist Progress Note ---
Date of Service December 13, 2018 Assessment & Plan (1) Respiratory distress: (2) PNA (pneumonia): Presented to ER with complaint of worsening shortness of breath associated with productive cough, Possible related to CHF exacerbation VS Pneumonia CXR showed cardiomegaly with pulmonary edema pattern. CT chest showed Cardiomegaly with mild pulmonary edema, trace pericardial effusion and small bilateral pleural effusions. Scattered bilateral alveolar opacities are suspicious for superimposed multifocal pneumonia. Was placed on BiPap on admission Received Lasix 40mg IV on admission, solumedrol and IV cefepime Saturated on RA today Repeat CXR this morning showed persistent interstitial thickening and bilateral opacities. Continue IV cefepime Clinically improves significantly (3) Acute CHF (congestive heart failure): Present with worsening SOB on exertion with minimal exertion Elevated BNP on admission 7758 CXR showed cardiomegaly with pulmonary edema pattern. Received Lasix 40mg IV on admission and yesterday ECHO showed mild global hypokinesis of LV. Reduced LV systolic function with EF 45 %. Grade 2 diastolic dysfunction Cardiology on board Will discuss with cardiology about additional lasix Plan for cardiac cath in am Will make NPO after midnight Clinically improves significantly (4) SVT (supraventricular tachycardia): Episode of SVT with HR 190 Received Adenosine 6mg x1 that broke the SVT Heart rate control Continue metoprolol 12.5 mg Cardiology on board Monitor electrolytes (5) Elevated troponin: Elevated troponin likely demand ischemia EKG showed no ischemic changes troponin trending down to normal Continue monitor (6) HTN (hypertension): Patient with hypertension in ER and was given labetalol IV, 2 inches of Nitropaste, Lasix 40 mg BP improves -Continue losartan (7) Venous stasis ulcers of both lower extremities: Following with wound clinic and having home health nurses for BLE wounds On clindamycin and cefdinir outpatient that placed since on cefepime currently Wound care consult Continue daily wound care (8) Systemic lupus: Continue prednisone, Plaquenil (9) History of pulmonary embolism: (10) Antiphospholipid antibody syndrome: (11) snf current use of 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: History of PE in the 90s and has been on anticoagulation since. S/P IVC filter On Eliquis, may need to consider different agent as BMI>40 (12) Depression: Continue Zoloft Stable DVT Prophylaxis On Eliquis CODE STATUS Full Code Disposition Continue monitor in tele Subjective Pt was seen and examined Lying in bed with no distress Pt said that her breathing feels much better She said that she feels fine Denies any chest pain, palpitation, dizziness and SOB Physical Exam Physical Exam: General- No acute distress Head- atraumatic Eyes- PERRL, EOMI, ENT- oropharynx clear Neck- supple, no JVD Lungs- clear to auscultation Heart- regular rhythm; +murmur Abdomen- normal bowel sounds, soft, nontender Extremities- BLE with dressings in place, +edema Neuro- alert, oriented x 3; PERRL, EOMI; no facial palsy; no dysarthria Skin- warm & dry Results & Data Vital Signs (Past 12 Hours) Vital Signs Temp Pulse Pulse Resp BP Pulse Ox 12/13/18 11:32 36.4 C L 79 20 109/75 95 12/13/18 09:00 96 H 12/13/18 07:29 36.5 C 81 19 119/79 98 12/13/18 04:31 36.6 C 82 20 96/59 L 97
[2018-12-13] MEDS ORDERED: POTASSIUM CHLORIDE 20 MEQ TABCR PO STA (15:35)
--- NOTE | 2018-12-13 18:34 | Consultation Report ---
DATE OF CONSULTATION: 12/13/2018 CONSULTATION REQUESTED BY: Dr. Grover. REASON FOR CONSULTATION: Acute decompensated systolic heart failure. HISTORY OF PRESENT ILLNESS: The patient is a very pleasant, yet very medically complex 53-year-old woman who presented to [facility] Emergency Department on 12/11/2018 with complaints of shortness of breath. The patient states that she started noticing her breathing starting to decline approximately 1 week prior to presentation. She states that she did not think much of it at that time and was having a mildly productive cough with clear sputum and chalked it up to allergies. However, the morning she presented, she got up, was feeling short of breath as usual, took her normal medications, but vomited them up. She then started feeling very warm and feverish, developed some chest discomfort and came into the Emergency Department. Upon presentation, she was noted to be in respiratory distress and was placed on BiPAP and given DuoNebs, Solu-Medrol, cefepime, labetalol, IV Lasix and nitro paste. She then started diuresing very quickly and started to feel better with continued diuresis and BiPAP was discontinued. Currently, she is resting comfortably on room air. She states that her chest discomfort has resolved as well and describes it is more of a heavy sensation than anything. She states that when she did have the chest discomfort, she was feeling very short of breath at the same time. She denied any associated radiation of the discomfort or associated palpitations, lightheadedness, dizziness or syncope, but again she was noted to be diaphoretic. She denies any previous similar episodes. During her hospital course, she was found to have mild troponin elevation and an echocardiogram was performed that did showed mildly reduced LV systolic function and Cardiology was consulted. She has diuresed almost 2.5 liters since admission and her chest x-ray has improved from a volume standpoint; however, persistent interstitial thickening consistent with multifocal pneumonia has persisted. She does note that she has been around grandchildren that had been ill lately. PAST SURGICAL HISTORY: 1. IVC filter placement. 2. . 3. Colonoscopy. 4. Exploratory laparotomies. 5. Laparoscopic cholecystectomy. 6. Total abdominal hysterectomy. MEDICAL ILLNESSES: 1. SLE. 2. Antiphospholipid antibody. 3. History of PE, on chronic Eliquis anticoagulation. 4. History of DVT with IVC filter placement. 5. History of ITP. 6. SLE was noted to be characterized with arthritis, myeloma, ratio of thrombocytopenia and leukopenia as per Hematology records. 7. Depression. 8. Stage III chronic kidney disease. 9. Obesity. 10. Chronic venous insufficiency with chronic venous stasis ulcers and bilateral lower extremity wounds, following closely with the [facility]. FAMILY HISTORY: Noncontributory. SOCIAL HISTORY: Denies any alcohol, tobacco or recreational drug use. She is not . She is unemployed. She has 1 child. REVIEW OF SYSTEMS: As per HPI, all other review of systems reviewed and negative at this time. ALLERGIES: 1. AMLODIPINE. 2. DOXYCYCLINE. 3. POLYSPORIN. 4. TETRACYCLINE. 5. BACITRACIN. 6. POLYMYXIN. 7. OF NOTE, HER ALLERGY LIST NOTES HEPARIN; HOWEVER, THIS WAS RULED OUT AND DIAGNOSED ITP INSTEAD OF HEPARIN-INDUCED THROMBOCYTOPENIA IN HER PREVIOUS ADMISSION. MEDICATIONS AN OUTPATIENT: 1. Eliquis 5 mg b.i.d. 2. Prednisone 5 mg daily. 3. Losartan 100 mg daily. 4. Plaquenil 400 mg b.i.d. 5. Zoloft daily. 6. Pepcid daily. PHYSICAL EXAMINATION: VITAL SIGNS: Temperature 36.5, pulse 81, respiratory rate 12, blood pressure /79, saturating 98% on room air. GENERAL: Awake, alert, oriented x3, in no acute distress. HEENT: Normocephalic, atraumatic. Pupils equal, round, reactive to light and accommodation. Extraocular muscles intact. Anicteric sclerae. Moist mucous membranes. Poor dentition. NECK: No JVD or bruit. CARDIOVASCULAR: Regular. Positive S4. Normal S1 and S2. No S3. No murmurs or rubs. PULMONARY: Scant bibasilar crackles; otherwise, clear with no rhonchi or wheezing. ABDOMEN: Bowel sounds x4, soft. No rebound, guarding, tenderness. No organomegaly. EXTREMITIES: Diffuse bilateral lower extremity pitting edema with bandages in place, unable to appreciate pedal pulses bilaterally. SKIN: Warm and dry. TEST RESULTS: A 2D echocardiogram performed on 12/12/2018 was read as left ventricular systolic function is mildly reduced, EF 45% with mild global hypokinesis, mild mitral regurgitation, grade 2 diastolic dysfunction. No previous studies available for comparison. LABORATORY STUDIES OF SIGNIFICANCE: White count 5.4, hemoglobin 11.5, platelet count of 215. INR of 1.1. Sodium 143, potassium 3.7, BUN 28, creatinine 1.1. IMPRESSION: 1. Newly discovered cardiomyopathy, EF 45%. 2. Episode of acute respiratory failure, multifactorial with volume overload and possible pneumonia. 3. Stage III chronic kidney disease. 4. History of ITP with the current platelet count of 215. 5. History of SLE. 6. History of antiphospholipid antibody, on chronic Eliquis anticoagulation. 7. History of DVT and PE, status post IVC filter placement. 8. Depression. RECOMMENDATIONS: It was my pleasure to see the patient in consultation today. The patient was counseled given the fact there was a new finding of her reduced LV systolic function and her presentation is volume overloaded that an ischemic evaluation will be warranted at this time, so I believe the most prudent course of action will be to proceed with cardiac catheterization to evaluate for any obstructive disease. At the same time, record her LVEDP mechanically. So, her Eliquis will be held. She will be made n.p.o. after midnight and she will undergo cardiac catheterization in the a.m. She is agreeable to this plan. Given the fact that her anticoagulation ____ held for 24 hours, heparin will not be started at this time and her Eliquis will likely be resumed after the cardiac catheterization tomorrow in the a.m. In the meantime, I agree with continued treatment for possible pneumonia as found on chest x-ray and I will hold off her initiation of aspirin until after the cardiac catheterization is performed. DAVID
[2018-12-13] MEDS: HYDROXYCHLOROQUINE SULFATE 200 MG TAB PO SCH (20:00)
[2018-12-13] MEDS: predniSONE 5 MG TAB PO SCH (20:00)
[2018-12-13] MEDS: FOLIC ACID 1 MG TAB PO SCH (20:00)
[2018-12-13] MEDS: TRAZODONE HCL 50 MG TAB PO SCH (20:00)
[2018-12-13] MEDS: SERTRALINE HCL 100 MG TABLET PO SCH (20:01)
[2018-12-13] MEDS: SODIUM CHLORIDE 0.65% NA SOLN 45 ML (OCEAN) NAE SCH (20:01)
[2018-12-14] MEDS: NITROGLYCERIN 2% OINTMENT 30GM TUBE EXT SCH ×4 (04:17→22:23)
[2018-12-14] MEDS: CEFEPIME 2,000 MG in SYRINGE 7.5 ML IV SCH (08:04)
[2018-12-14 08:20] LABS: Creatinine Clr Calc Pharmacy 110.2 ml/min; Est GFR (African American) 89.4; Est GFR (Non-African American) 77.1
[2018-12-14] MEDS: LOSARTAN POTASSIUM 50 MG TAB PO SCH (09:36)
[2018-12-14] MEDS: FLUTICASONE PROPIONATE NA SPR 16 GM BTL NAE SCH ×2 (09:37→21:31)
[2018-12-14] MEDS: FAMOTIDINE 20 MG TAB PO SCH (09:38)
[2018-12-14] MEDS: METOPROLOL TARTRATE 25 MG TAB PO SCH ×2 (09:38→21:31)
[2018-12-14] MEDS: CEROVITE ADV FORMULA TAB PO SCH (09:40)
[2018-12-14] MEDS: CALCIUM CARBONATE 500 MG CHEWABLE TAB PO SCH (09:41)
[2018-12-14] MEDS ORDERED: fentaNYL citrate 100 MCG/2 ML VIAL ONE (11:20)
[2018-12-14] MEDS ORDERED: HEPARIN (PORCINE) 1000 UNIT/ML 10 ML (CATH LAB USE ONLY) ONE (11:20)
[2018-12-14] MEDS ORDERED: NiCARDipine HCL INJ 2.5 MG/ML 10 ML AMP ONE (11:20)
[2018-12-14] MEDS ORDERED: MIDAZOLAM HCL 1 MG/ML 2ML VIAL ONE (11:20)
[2018-12-14] MEDS ORDERED: NITROGLYCERIN/D5W 100MCG/ML 20ML SYR ONE (11:21)
[2018-12-14] MEDS ORDERED: APIXABAN 5 MG TABLET PO ONE (12:30)
--- NOTE | 2018-12-14 13:09 | Cardiology Progress Note ---
Date of Service December 14, 2018 Assessment & Plan (1) Acute CHF (congestive heart failure): acute decompensation now resolved echo revealed newly discovered cardiomyopathy, EF 45% no sign of active ischemia, however, ischemia requires a rule out poor radial access for cath and given multiple comorbidities would be significant risk for femoral access given that symptoms have resolved will complete ischemic work up as an outpatient with a Lexiscan Nuclear stress test high likelihood that will be nonischemic in origin cont medical therapy cont losartan will change beta maria elena to EBB metoprolol succinate follow volume status clinically but would d/c home with lasix 20mg daily with increased dosing prn my office will call to arrange f/u upon discharge ok to d/c to home likely in AM from cardiac standpoint (2) SVT (supraventricular tachycardia): resolved changing beta maria elena to succinate (3) History of idiopathic thrombocytopenic purpura: platelet count stable (4) shelter current use of 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: Eliquis restarted (5) Systemic lupus erythematosus: (6) Venous stasis ulcers: follows with wound clinic (7) Antiphospholipid antibody syndrome: f/u with heme/onc as outpatient Subjective Pt seen and examined, states that she feels well today. No further sob. Denies cp, palpitations, lightheadedness or dizziness. tele reviewed: sinus rhythm without arrhythmia or significant ectopy. Review of Systems Review of Systems: All systems reviewed & are unremarkable except as noted in HPI & below Physical Exam Physical Exam: General: Awake, alert and oriented x 3. No acute distress. HEENT: Normocephalic, atraumatic. Pupils equal, round and reactive to light and accommodation. Extraocular muscles are intact. Anicteric sclera. Moist mucous membranes. Neck: No JVD. No bruit. Cardiovascular: Regular. Positive S-4. Normal S-1 and S-2. No S-3. No murmurs or rubs. Pulmonary: Clear to auscultation B/L. No rales, rhonchi or wheezing Abdomen: Bowel sounds x 4, soft. No rebound, guarding or tenderness. No organomegaly. Extremities: No clubbing, cyanosis or edema. +2 pedal pulses bilaterally. Skin: Warm and dry. Results & Data Vital Signs (Past 12 Hours) Vital Signs Temp Pulse Pulse Resp BP Pulse Ox 12/14/18 11:27 36.3 C L 85 20 131/86 95 12/14/18 08:00 80 12/14/18 07:28 36.5 C 91 H 20 132/88 91 12/14/18 03:42 36.8 C 88 20 137/85 98
[2018-12-14] MEDS: FUROSEMIDE 20 MG TAB PO SCH (14:15)
[2018-12-14] MEDS: CEFDINIR 300 MG CAP PO SCH (17:10)
--- NOTE | 2018-12-14 19:37 | Hospitalist Progress Note ---
Date of Service December 14, 2018 Assessment & Plan (1) Respiratory distress: (2) PNA (pneumonia): Presented to ER with complaint of worsening shortness of breath associated with productive cough, Possible related to CHF exacerbation VS Pneumonia CXR showed cardiomegaly with pulmonary edema pattern. CT chest showed Cardiomegaly with mild pulmonary edema, trace pericardial effusion and small bilateral pleural effusions. Scattered bilateral alveolar opacities are suspicious for superimposed multifocal pneumonia. Was placed on BiPap on admission Received Lasix 40mg IV on admission, solumedrol and IV cefepime Saturated on RA today Repeat CXR this morning showed persistent interstitial thickening and bilateral opacities. IV cefepime changed to Cefdinir BID Clinically improves significantly (3) Acute combined systolic (congestive) and diastolic (congestive) heart failure: Present with worsening SOB on exertion with minimal exertion Elevated BNP on admission 7758 CXR showed cardiomegaly with pulmonary edema pattern. Received Lasix 40mg IV on admission and yesterday ECHO showed mild global hypokinesis of LV. Reduced LV systolic function with EF 45 %. Grade 2 diastolic dysfunction Cardiology on board Cardiac cath was cancelled due to poor radial access for cath and given multiple comorbidities would be significant risk for femoral access recommended to start on lasix 20mg on discharge Follow up with cardiology for outpatient cardiac workup a Lexiscan Nuclear stress test Clinically improves significantly Check BMP in 1 week (4) SVT (supraventricular tachycardia): Episode of SVT with HR 190 Received Adenosine 6mg x1 that broke the SVT Heart rate control Metoprolol changed to Toprol Cardiology on board Monitor electrolytes (5) Elevated troponin: Elevated troponin likely demand ischemia EKG showed no ischemic changes troponin trending down to normal Continue monitor (6) HTN (hypertension): Patient with hypertension in ER and was given labetalol IV, 2 inches of Nitropaste, Lasix 40 mg BP improves -Continue losartan (7) Venous stasis ulcers of both lower extremities: Following with wound clinic and having home health nurses for BLE wounds On clindamycin and cefdinir outpatient that placed since on cefepime currently Wound care consult Continue daily wound care (8) Systemic lupus: Continue prednisone, Plaquenil (9) History of pulmonary embolism: (10) Antiphospholipid antibody syndrome: (11) [facility] current use of 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: History of PE in the 90s and has been on anticoagulation since. S/P IVC filter On Eliquis, may need to consider different agent as BMI>40 (12) Depression: Continue Zoloft Stable DVT Prophylaxis On Eliquis CODE STATUS Full Code Disposition Discharge home tomorrow Subjective Pt was seen and examined Lying in bed with no distress Pt said that she feels fine Denies any chest pain, palpitation and SOB Physical Exam Physical Exam: General- No acute distress Head- atraumatic Eyes- PERRL, EOMI, ENT- oropharynx clear Neck- supple, no JVD Lungs- clear to auscultation Heart- regular rhythm; +murmur Abdomen- normal bowel sounds, soft, nontender Extremities- BLE with dressings in place, +edema Neuro- alert, oriented x 3; PERRL, EOMI; no facial palsy; no dysarthria Skin- warm & dry Results & Data Vital Signs (Past 12 Hours) Vital Signs Temp Pulse Pulse Pulse Resp BP Pulse Ox 12/14/18 18:52 36.7 C 87 21 153/89 H 96 12/14/18 16:00 86 12/14/18 15:26 36.7 C 84 19 138/87 97 12/14/18 11:27 36.3 C L 85 20 131/86 95 12/14/18 08:00 80
[2018-12-14] MEDS: APIXABAN 5 MG TABLET PO SCH (21:30)
[2018-12-14] MEDS: SERTRALINE HCL 100 MG TABLET PO SCH (21:30)
[2018-12-14] MEDS: FOLIC ACID 1 MG TAB PO SCH (21:30)
[2018-12-14] MEDS: TRAZODONE HCL 50 MG TAB PO SCH (21:30)
[2018-12-14] MEDS: HYDROXYCHLOROQUINE SULFATE 200 MG TAB PO SCH (21:31)
[2018-12-14] MEDS: predniSONE 5 MG TAB PO SCH (21:31)
[2018-12-14] MEDS: SODIUM CHLORIDE 0.65% NA SOLN 45 ML (OCEAN) NAE SCH (21:32)
[2018-12-15] MEDS: NITROGLYCERIN 2% OINTMENT 30GM TUBE EXT SCH (04:39)
[2018-12-15] MEDS: CEFDINIR 300 MG CAP PO SCH (05:41)
[2018-12-15 06:55] LABS: Est GFR (African American) 82.5; Est GFR (Non-African American) 71.2
[2018-12-15] MEDS: CEROVITE ADV FORMULA TAB PO SCH (08:51)
[2018-12-15] MEDS: FUROSEMIDE 20 MG TAB PO SCH (08:51)
[2018-12-15] MEDS: LOSARTAN POTASSIUM 50 MG TAB PO SCH (08:51)
[2018-12-15] MEDS: FLUTICASONE PROPIONATE NA SPR 16 GM BTL NAE SCH (08:51)
[2018-12-15] MEDS: FAMOTIDINE 20 MG TAB PO SCH (08:52)
[2018-12-15] MEDS: CALCIUM CARBONATE 500 MG CHEWABLE TAB PO SCH (08:52)
[2018-12-15] MEDS: APIXABAN 5 MG TABLET PO SCH (08:52)
[2018-12-15] MEDS ORDERED: METOPROLOL SUCC 25MG EXT REL TAB PO SCH (09:00)
--- NOTE | 2018-12-15 10:48 | Cardiology Progress Note ---
Date of Service December 15, 2018 Assessment & Plan (1) Acute CHF (congestive heart failure): acute decompensation now resolved echo revealed newly discovered cardiomyopathy, EF 45% no sign of active ischemia, however, ischemia requires a rule out poor radial access for cath and given multiple comorbidities would be significant risk for femoral access given that symptoms have resolved will complete ischemic work up as an outpatient with a Lexiscan Nuclear stress test high likelihood that will be nonischemic in origin cont medical therapy cont losartan will change beta maria elena to EBB metoprolol succinate follow volume status clinically but would d/c home with lasix 20mg daily with increased dosing prn my office will call to arrange f/u upon discharge ok to d/c to home likely in AM from cardiac standpoint (2) SVT (supraventricular tachycardia): resolved changing beta maria elena to succinate (3) History of idiopathic thrombocytopenic purpura: platelet count stable (4) half-way current use of 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: Eliquis restarted (5) Systemic lupus erythematosus: (6) Venous stasis ulcers: follows with wound clinic (7) Antiphospholipid antibody syndrome: f/u with heme/onc as outpatient Subjective Pt seen and examined, states that she feels well today, anxious for discharge. Denies cp, sob, palpitations, lightheadedness or dizziness. tele reviewed: sinus rhythm without arrhythmia or significant ectopy. Review of Systems Review of Systems: All systems reviewed & are unremarkable except as noted in HPI & below Physical Exam Physical Exam: General: Awake, alert and oriented x 3. No acute distress. HEENT: Normocephalic, atraumatic. Pupils equal, round and reactive to light and accommodation. Extraocular muscles are intact. Anicteric sclera. Moist mucous membranes. Neck: No JVD. No bruit. Cardiovascular: Regular. Positive S-4. Normal S-1 and S-2. No S-3. No murmurs or rubs. Pulmonary: Clear to auscultation B/L. No rales, rhonchi or wheezing Abdomen: Bowel sounds x 4, soft. No rebound, guarding or tenderness. No organomegaly. Extremities: No clubbing, cyanosis or edema. +2 pedal pulses bilaterally. Skin: Warm and dry. Results & Data Vital Signs (Past 12 Hours) Vital Signs Temp Pulse Pulse Resp BP Pulse Ox 12/15/18 08:00 88 12/15/18 07:10 36.8 C 86 24 141/96 H 97 12/15/18 04:39 36.8 C 85 19 126/82 98 12/15/18 02:34 80
--- NOTE | 2018-12-15 10:51 | Hospitalist Progress Note ---
Date of Service December 15, 2018 Assessment & Plan (1) Respiratory distress: (2) PNA (pneumonia): Presented to ER with complaint of worsening shortness of breath associated with productive cough, Possible related to CHF exacerbation VS Pneumonia CXR showed cardiomegaly with pulmonary edema pattern. CT chest showed Cardiomegaly with mild pulmonary edema, trace pericardial effusion and small bilateral pleural effusions. Scattered bilateral alveolar opacities are suspicious for superimposed multifocal pneumonia. Was placed on BiPap on admission Received Lasix 40mg IV on admission, solumedrol and IV cefepime Saturated on RA today Repeat CXR this morning showed persistent interstitial thickening and bilateral opacities. IV cefepime changed to Cefdinir BID Clinically improves significantly (3) Acute combined systolic (congestive) and diastolic (congestive) heart failure: Present with worsening SOB on exertion with minimal exertion Elevated BNP on admission 7758 CXR showed cardiomegaly with pulmonary edema pattern. Received Lasix 40mg IV on admission and yesterday ECHO showed mild global hypokinesis of LV. Reduced LV systolic function with EF 45 %. Grade 2 diastolic dysfunction Cardiology on board Cardiac cath was cancelled due to poor radial access for cath and given multiple comorbidities would be significant risk for femoral access Continue lasix 20mg daily on discharge Follow up with cardiology for outpatient cardiac workup a Lexiscan Nuclear stress test Clinically improves significantly Case discussed with Cardiology and OK from cardiology standpoint to discharge home Follow up with cardiology Dr. Prajapati on 12/23 @ 10:45 AM Check BMP in 1 week (4) SVT (supraventricular tachycardia): Episode of SVT with HR 190 Received Adenosine 6mg x1 that broke the SVT Heart rate control Metoprolol changed to Toprol Cardiology on board Monitor electrolytes (5) Elevated troponin: Elevated troponin likely demand ischemia EKG showed no ischemic changes troponin trending down to normal Continue monitor (6) HTN (hypertension): Patient with hypertension in ER and was given labetalol IV, 2 inches of Nitropaste, Lasix 40 mg BP improves Continue losartan (7) Venous stasis ulcers of both lower extremities: Following with wound clinic and having home health nurses for BLE wounds On clindamycin and cefdinir outpatient that placed since on cefepime currently Wound care consult Continue daily wound care (8) Systemic lupus: Continue prednisone, Plaquenil (9) History of pulmonary embolism: (10) Antiphospholipid antibody syndrome: (11) long term current use of 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: History of PE in the 90s and has been on anticoagulation since. S/P IVC filter On Eliquis, may need to consider different agent as BMI>40 (12) Depression: Continue Zoloft Stable DVT Prophylaxis On Eliquis CODE STATUS Full Code Disposition Discharge home today Follow with your primary care provider Dr. Muñoz on 12/21 @ 12:45 PM Follow up with cardiology Dr. Prajapati on 12/23 @ 10:45 AM Check BMP in 1 week Subjective Pt was seen and examined Lying in bed with no distress Pt said that she feels much better compared to when she came She said that her breathing feels much better Denies any chest pain, palpitation, dizziness and SOB Physical Exam Physical Exam: General- No acute distress Head- atraumatic Eyes- PERRL, EOMI, ENT- oropharynx clear Neck- supple, no JVD Lungs- clear to auscultation Heart- regular rhythm; +murmur Abdomen- normal bowel sounds, soft, nontender Extremities- B/L LE with dressings in place, +edema Neuro- alert, oriented x 3; PERRL, EOMI; no facial palsy; no dysarthria Skin- warm & dry Results & Data Vital Signs (Past 12 Hours) Vital Signs Temp Pulse Pulse Resp BP Pulse Ox 12/15/18 08:00 88 12/15/18 07:10 36.8 C 86 24 141/96 H 97 12/15/18 04:39 36.8 C 85 19 126/82 98 12/15/18 02:34 80
--- NOTE | 2018-12-24 07:45 | Discharge Summary ---
Date of Service December 15, 2018 Admission HPI Per Admitting Provider Pt is 53 y/o F with PMH SLE, antiphospholipid antibody, PE on Eliquis, h/o IVC filter, h/o ITP, HTN, dyslipidemia, CKD III, obesity, venous stasis with pedal edema, depression presented to ER with complaint of increased shortness of breath. Patient reports past week with shortness of breath which is increased over the past couple days. Also reports yellow productive cough and last night was blood tinged. Patient states took her morning medicines today however she vomited shortly after taking. Patient states his been feeling hot. Today having chest tightness. Reports grandchildren have had nasal congestion that she thought was secondary to allergies. Denies recent travel. She states chronic bilateral extremity wounds that she follows with wound clinic and has home health wrapping her legs. Patient is on clindamycin and cefdinir for extremity wounds. Reports bronchitis approx one month ago. Denies hx known CAD, CHF. Denies fever, diarrhea, constipation, EDUARDO, dizziness, syncope, vision changes, neck pain, palpitations, sore throat, choking, otalgia, abdominal pain, paresthesias, increased extremity edema, rashes, urinary symptoms. In ER patient noted to be in respiratory distress with tachypnea, tachycardia and hypertension. Patient was placed on BiPAP, was given Duoneb, Solumedrol 60mg IV, cefepime, 250ml NSS, labetalol 10mg IV x 2 doses, lasix 40mg IV, Nitropaste 2". Admission Exam Per Admitting Provider General: On bipap currently without respiratory distress, obese Head: normocephalic, atraumatic Eyes: PERRL, EOM's intact, conjunctiva non-injected, anicteric ENT: normal inspection external ears, nose, mucous membranes moist Neck: supple, trachea midline Lungs:On bipap with R: 24, pulse ox 98%, rales at bases CV: regular, rate 110, systolic murmur Abd: normal BS, soft, non-tender Ext: BLE with dressings in place Neuro: A&O x 3, no focal deficits noted, normal affect Skin: warm, dry Principal Diagnosis Respiratory distress PNA (pneumonia) Acute CHF (congestive heart failure) SVT (supraventricular tachycardia) Elevated troponin Venous stasis ulcers of both lower extremities: Systemic Lupus History of pulmonary embolism Antiphospholipid antibody syndrome 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 Depression Discharge Exam General- No acute distress Head- atraumatic Eyes- PERRL, EOMI, ENT- oropharynx clear Neck- supple, no JVD Lungs- clear to auscultation Heart- regular rhythm; +murmur Abdomen- normal bowel sounds, soft, nontender Extremities- B/L LE with dressings in place, +edema Neuro- alert, oriented x 3; PERRL, EOMI; no facial palsy; no dysarthria Skin- warm & dry Discharge Data Allergies Allergy/AdvReac Type Severity Reaction Status Date / Time heparin Allergy Severe HIT R/O Verified 12/16/18 13:16 from last hospital admission - rather was dx w/ ITP vancomycin Allergy Intermediate RASH Verified 12/16/18 13:16 tetracycline Allergy Mild RASH, Verified 12/16/18 13:16 PRURITIS amlodipine Allergy Unknown Unknown Verified 12/16/18 13:16 bacitracin Allergy Unknown Unknown Verified 12/16/18 13:16 doxycycline Allergy Unknown UNKNOWN Verified 12/16/18 13:16 polymyxin B Allergy Unknown Unknown Verified 12/16/18 13:16 Consultations 12/11/18 16:22 ED Decision to Admit Stat 12/11/18 17:40 Consult Case Management - Discharge Planning Routine 12/12/18 13:45 Consult Cardiology Routine 12/13/18 13:16 Consult Cardiac Catheterization Routine Procedures Performed Operation Date: 12/14/18 13:30 Actual Procedures p Cath, Coronaries ONLY (no LV) - Bill Manning, Ordered Studies 12/11/18 15:19 CT chest wo con Stat 12/14/18 11:27 CL Cath Imgs for PACS use only Routine XR chest 1V portable CLINICAL HISTORY: F/U COMPARISON STUDY: Chest radiograph and chest CT December 11, 2018. FINDINGS: There is no pneumothorax. Trace bilateral pleural effusions are noted. Interstitial thickening and bilateral opacities persist. Cardiomediastinal silhouette is stable. IMPRESSION: 1. Persistent interstitial thickening and bilateral opacities. Multifocal pneumonia is favored although pulmonary edema could appear similar. 2. Trace bilateral pleural effusions. Electronically signed by: Gama Alexander M.D. 12/13/2018 7:21 AM Dictated: 12/13/18719 Transcribed: 12/13/18719 CT chest wo con CT DOSE: 952.84 mGy.cm CLINICAL HISTORY: 53 years-old Female with sob, poss infiltrate or fluid. Acute shortness of breath with bibasilar opacities on chest radiograph of same day TECHNIQUE: Multiaxial CT images of the chest were performed without contrast. A dose lowering technique was utilized adhering to the principles of ALARA. COMPARISON: Chest radiograph of same day, chest CT 12/29/2013 FINDINGS: There is no focal thyroid nodule identified. Mild to moderate cardiomegaly with trace pericardial effusion. Coronary arterial calcifications are noted. No thoracic aortic aneurysm. Mildly enlarged paratracheal and subcarinal lymph nodes measure up to 10 mm in short axis. Small bilateral pleural effusions. No pneumothorax. Mild intralobular septal thickening is noted bilaterally. Patchy alveolar opacities are noted bilaterally, most pronounced within the right greater than left lower lobes. Mild subsegmental bibasilar atelectasis. Central airways appear patent. The study is mildly degraded secondary to respiratory motion artifact. Wall thickening about the distal esophagus. Hepatomegaly with hepatic steatosis. Varices noted about the anterior lower chest and upper abdominal wall. Breast parenchyma is unremarkable. Degenerative changes are seen about the shoulders and spine. No suspicious bone lesions. No acute fracture. IMPRESSION: 1. Cardiomegaly with mild pulmonary edema, trace pericardial effusion and small bilateral pleural effusions. 2. Scattered bilateral alveolar opacities are suspicious for superimposed multifocal pneumonia. Follow-up imaging to document resolution is recommended. 3. Mild mediastinal adenopathy, likely reactive. 4. Hepatic steatosis. Electronically signed by: Osito Andrew M.D. 12/11/2018 4:56 PM Dictated: 12/11/18 1650 Transcribed: 12/11/18 1650 XR chest 1V portable HISTORY: 53 years-old Female sob acute shortness of breath COMPARISON: Chest radiographs 10/02/2018 TECHNIQUE: Portable AP view of the chest FINDINGS: Cardiac silhouette is enlarged. Pulmonary vascular congestion with interstitial coarsening. Trace pleural effusions with bibasilar opacities. No pneumothorax. Degenerative changes of the shoulders and spine. IMPRESSION: 1. Cardiomegaly with pulmonary edema pattern. 2. Trace pleural effusions with bibasilar opacities suggestive of probable atelectasis. The above report was generated using voice recognition software. It may contain grammatical, syntax or spelling errors. Electronically signed by: Osito Andrew M.D. 12/11/2018 3:11 PM Dictated: 12/11/18 1505 Transcribed: 12/11/18 1507 Hospital Course (1) Respiratory distress: (2) PNA (pneumonia): Presented to ER with complaint of worsening shortness of breath associated with productive cough, Possible related to CHF exacerbation VS Pneumonia CXR showed cardiomegaly with pulmonary edema pattern. CT chest showed Cardiomegaly with mild pulmonary edema, trace pericardial effusion and small bilateral pleural effusions. Scattered bilateral alveolar opacities are suspicious for superimposed multifocal pneumonia. Was placed on BiPap on admission Received Lasix 40mg IV on admission, solumedrol and IV cefepime Saturated on RA today Repeat CXR this morning showed persistent interstitial thickening and bilateral opacities. IV cefepime changed to Cefdinir BID Clinically improves significantly (3) Acute combined systolic (congestive) and diastolic (congestive) heart failure: Present with worsening SOB on exertion with minimal exertion Elevated BNP on admission 7758 CXR showed cardiomegaly with pulmonary edema pattern. Received Lasix 40mg IV on admission and yesterday ECHO showed mild global hypokinesis of LV. Reduced LV systolic function with EF 45 %. Grade 2 diastolic dysfunction Cardiology on board Cardiac cath was cancelled due to poor radial access for cath and given multiple comorbidities would be significant risk for femoral access Continue lasix 20mg daily on discharge Follow up with cardiology for outpatient cardiac workup a Lexiscan Nuclear stress test Clinically improves significantly Case discussed with Cardiology and OK from cardiology standpoint to discharge home Follow up with cardiology Dr. Prajapati on 12/23 @ 10:45 AM Check BMP in 1 week (4) SVT (supraventricular tachycardia): Episode of SVT with HR 190 Received Adenosine 6mg x1 that broke the SVT Heart rate control Metoprolol changed to Toprol Cardiology on board Monitor electrolytes (5) Elevated troponin: Elevated troponin likely demand ischemia EKG showed no ischemic changes troponin trending down to normal Continue monitor (6) HTN (hypertension): Patient with hypertension in ER and was given labetalol IV, 2 inches of Nitropaste, Lasix 40 mg BP improves Continue losartan (7) Venous stasis ulcers of both lower extremities: Following with wound clinic and having home health nurses for BLE wounds On clindamycin and cefdinir outpatient that placed since on cefepime currently Wound care consult Continue daily wound care (8) Systemic lupus: Continue prednisone, Plaquenil (9) History of pulmonary embolism: (10) Antiphospholipid antibody syndrome: (11) assisted current use of 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: History of PE in the 90s and has been on anticoagulation since. S/P IVC filter On Eliquis, may need to consider different agent as BMI>40 (12) Depression: Continue Zoloft Stable DVT Prophylaxis On Eliquis CODE STATUS Full Code Disposition Discharge home today Follow with your primary care provider Dr. Muñoz on 12/21 @ 12:45 PM Follow up with cardiology Dr. Prajapati on 12/23 @ 10:45 AM Check BMP in 1 week Total Time Total Time Spent Total Time Spent (In Minutes): 35 minutes Total Time Includes: Examination of the Patient, Discharge Planning, Medication Reconciliation, Communication With Other Providers and Other Discharge Plan Discharge Items Patient Disposition: Home - Home Health Services Reason For Visit: ACUTE RESPITATORY DISTRESS Discharge Diagnosis: Respiratory distress PNA (pneumonia) Acute CHF (congestive heart failure) SVT (supraventricular tachycardia) Elevated troponin Venous stasis ulcers of both lower extremities: Systemic Lupus History of pulmonary embolism Antiphospholipid antibody syndrome 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 Depression Discharge Goals: Decrease discomfort, Improve disease control, Improve function and Increase independence Activity: Resume your previous activity Activity Comment: As tolerated Non-emergency contact: Primary Care Provider and Staff Nurse Call non-emergency contact if: you have any medication questions Follow-up/Referrals: Deborah Muñoz DO [Primary Care Provider] - Diet: Heart Healthy Addtl Provider Instructions: Follow with your primary care provider Dr. Muñoz on 12/21 @ 12:45 PM Follow up with cardiology Dr. Prajapati on 12/23 @ 10:45 AM Follow up with the wound care clinic Continue daily wound care Check BMP in 1 week to monitor kidney function and electrolytes Follow a low salt diet CHF Discharge Instructions Call your Primary Care doctor if any of the following symptoms or problems start or get worse: Shortness of breath or difficulty breathing Wake up at night short of breath Chest pain Cough Swelling of your hands, feet, or legs More fatigued or tired with your normal activity Palpitations - sudden fast heart beats WEIGHT Weigh yourself every morning after using the bathroom. Use the same scale. Wear the same amount of clothing. Write your weight down on a chart. Call your Primary Care doctor if you gain more than 2-3 pounds in 1-2 days. MEDICATIONS Use this discharge instruction sheet for medication instructions. Take your medications at the time your doctor ordered. Do not skip a dose of your medicines. If you miss a dose of medicine, take it as soon as possible, but DO NOT DOUBLE A DOSE. Read your medicine information when you get home. Know all of the side effects of your medicine. If in doubt, ask your pharmacist Call your Primary Care doctor's office if you have any side effects. Be sure all of your doctors know what medicine and herbs you take (including cold, flu, and herbal medicine). Take the following with you to your follow-up doctor appointments: Weight Chart Medication List List of questions Do not drink excessive alcohol, beer or wine. Prescriptions: New furosemide 20 mg Tablet 20 mg PO QAM 30 Days Qty: 30 RF: 0 metoprolol succinate 25 mg Tablet Extended Release 24 Hr 25 mg PO QAM 30 Days Qty: 30 RF: 0 Continued acetaminophen [Tylenol Extra Strength] 500 mg tablet 1,000 mg PO Q8H PRN (Reason: Pain) RF: 0 apixaban [Eliquis] 5 mg tablet 5 mg PO BID RF: 0 belimumab [Benlysta] 400 mg recon soln 1,200 mg IV UD RF: 0 calcium carbonate 500 mg calcium (1,250 mg) tablet,chewable 1,000 mg PO DAILY RF: 0 calcium carbonate-vitamin D3 [Os-Marco A 500 + D3] 500 mg(1,250mg) -200 unit tablet 1 tab PO QAM RF: 0 diphenhydramine HCl [Allergy (diphenhydramine)] 25 mg tablet 25 mg PO Q6H PRN (Reason: itching) RF: 0 famotidine [Pepcid] 20 mg tablet 20 mg PO DAILY RF: 0 fluticasone propionate [Flonase Allergy Relief] 50 mcg/actuation spray,suspension 2 sprays INTNAS BID RF: 0 folic acid 1 mg tablet 1 mg PO HS RF: 0 hydroxychloroquine [Plaquenil] 200 mg tablet 400 mg PO PM RF: 0 multivitamin with minerals capsule 1 cap PO QAM RF: 0 prednisone 5 mg tablet 5 mg PO HS RF: 0 sodium chloride [Saline Nasal] 0.65 % aerosol,spray 2 sprays INTNAS QPM RF: 0 sertraline [Zoloft] 100 mg tablet 100 mg PO HS RF: 0 trazodone 50 mg tablet 100 mg PO HS RF: 0 clindamycin HCl 300 mg capsule 300 mg PO BID Qty: 60 RF: 3 cefdinir 300 mg capsule 300 mg PO Q12H Qty: 60 RF: 5 losartan 100 mg Tablet 100 mg PO DAILY RF: 0 Stand-Alone Forms: [facility] Discharge Orders: Discharge Order (Routine); Ordered 12/15/18 Ordered By: Cruzito Grover Admission Data Admit Date/Time: 12/11/18 16:41 Attending Provider: Javier Major Admit Provider: Lilian Chacon Primary Care Provider: Deborah Muñoz Other Providers: Damon Prajapati Service: Telemetry Other Interventions: Discharge Summary Assessment (RN) Last Done: 12/15/18 11:44 DC Date/Time DO NOT enter until pt leaves facility: 12/15/18 14:47
== END 2018-12-15 14:47 | disposition home health service (06) | DRG 291 ==
LOC: ED 13:49 → 2S 16:41 → SUATTDRO 16:41 → 2S 17:41
PROC: CLB.CCO (2018-12-14 13:30)
DX: Z79.01 Long term (current) use of 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s; M32.9 Systemic lupus erythematosus, unspecified; E78.5 Hyperlipidemia, unspecified; J18.9 Pneumonia, unspecified organism; I47.1 Supraventricular tachycardia; Z68.42 Body mass index [BMI] 45.0-49.9, adult; Z79.899 Other long term (current) drug therapy; N18.3 Chronic kidney disease, stage 3 (moderate); E66.9 Obesity, unspecified; F32.9 Major depressive disorder, single episode, unspecified; J96.00 Acute respiratory failure, unspecified whether with hypoxia or hypercapnia; Z79.52 Long term (current) use of systemic steroids; I50.21 Acute systolic (congestive) heart failure; I13.0 Hypertensive heart and chronic kidney disease with heart failure and stage 1 through stage 4 chronic kidney disease, or unspecified chronic kidney disease; I24.8 Other forms of acute ischemic heart disease; Z86.711 Personal history of pulmonary embolism; I87.8 Other specified disorders of veins

== ENCOUNTER 2019-03-24 14:15 | Inpatient (IN) ==
[2019-03-24] MEDS ORDERED: ACETAMINOPHEN 325 MG TAB PO PRN (15:35)
[2019-03-24] MEDS ORDERED: PIPERACILL/TAZOBAC CONSULT ACTIVE PRN (16:12)
[2019-03-24] MEDS ORDERED: PATIENT'S HEIGHT AND/OR WEIGHT NEEDED SCH (16:30)
[2019-03-24] MEDS ORDERED: PIPERACILLIN/TAZOBACTAM 4.5 GM in DEXTROSE 5% 100 ML IV STA (17:45)
--- NOTE | 2019-03-24 17:45 | History & Physical Report ---
Date of Service March 24, 2019 Assessment & Plan (1) Wound infection: (2) MSSA (methicillin susceptible Staphylococcus aureus) infection: (3) Pseudomonas aeruginosa infection: -Admit to [facility] -Patient referred by Dr. Krishnan for direct admission for management of infected bilateral lower extremity venous ulcers -Patient has been on p.o. clindamycin for a prolonged period of time without improvement -Recent culture growing MSSA and Pseudomonas -Per ID recommendations, will start IV Zosyn -Does not appear septic -Wound care consult (4) Chronic combined systolic and diastolic CHF (congestive heart failure): -Admitted in December and found to have new onset systolic CHF -Echo 12/2018-EF 45%, grade 2 diastolic dysfunction -Appears euvolemic on exam, continue home dose of diuretic -Continue beta-maria elena -Cardiac cath was attempted during previous admission however patient had poor access, is scheduled to have a stress test as an outpatient (5) Systemic lupus erythematosus: -Continue prednisone and Plaquenil -Also receives Benlysta injections (6) HTN (hypertension): -BP controlled, continue losartan and metoprolol (7) History of pulmonary embolism: (8) DVT (deep venous thrombosis): (9) Antiphospholipid antibody syndrome: (10) Protein C deficiency: (11) Lupus 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 positive: -Continue Eliquis and folic acid (12) GERD (gastroesophageal reflux disease): -Continue H2 maria elena (13) Depression: -Continue home medications (14) DVT prophylaxis: -On Eliquis History of Present Illness Chief Complaint: Lower extremity wounds Primary Care Provider: Deborah Muñoz DO 53-year-old female who was directly admitted from the wound care center for management infected and worsening bilateral lower extremity wounds. Patient has history of chronic venous stasis with ulcers. She has been on clindamycin for a prolonged period of time and wounds continue to worsen. Most recent culture growing MSSA and Pseudomonas. Patient follows closely with the wound center and infectious disease. Patient denies fevers and chills. No chest pain or shortness of breath. Denies lightheadedness, dizziness, diaphoresis, syncopal events. No abdominal pain, nausea, vomiting, diarrhea. She denies any urinary symptoms. At the time my exam, patient is resting in bed no acute distress. Allergies Allergy/AdvReac Type Severity Reaction Status Date / Time heparin Allergy Severe HIT R/O Verified 03/24/19 13:26 from last hospital admission - rather was dx w/ ITP vancomycin Allergy Intermediate RASH Verified 03/24/19 13:26 tetracycline Allergy Mild RASH, Verified 03/24/19 13:26 PRURITIS amlodipine Allergy Unknown Unknown Verified 03/24/19 13:26 bacitracin Allergy Unknown Unknown Verified 03/24/19 13:26 doxycycline Allergy Unknown UNKNOWN Verified 03/24/19 13:26 polymyxin B Allergy Unknown Unknown Verified 03/24/19 13:26 Home Medications Home Medications Medication Instructions Recorded Confirmed Type acetaminophen 500 mg tablet 1,000 mg PO Q8H PRN tab 01/05/18 03/24/19 History apixaban 5 mg tablet 5 mg PO BID tab 01/05/18 03/24/19 History belimumab 400 mg intravenous 1,200 mg IV UD ea 01/05/18 03/24/19 History solution calcium carbonate 500 mg (1,250 1 tab PO QAM tab 01/05/18 03/24/19 History mg)-vitamin D3 200 unit tablet calcium carbonate 500 mg calcium 1,000 mg PO DAILY tab 01/05/18 03/24/19 History (1,250 mg) chewable tablet diphenhydramine HCl 25 mg tablet 25 mg PO Q6H PRN tab 01/05/18 03/24/19 History fluticasone propionate 50 2 sprays INTNAS BID gm 01/05/18 03/24/19 History mcg/actuation nasal spray,suspension folic acid 1 mg tablet 1 mg PO HS 01/05/18 03/24/19 History hydroxychloroquine 200 mg tablet 400 mg PO PM tab 01/05/18 03/24/19 History multivitamin with minerals 1 cap PO QAM cap 01/05/18 03/24/19 History prednisone 5 mg tablet 5 mg PO HS 01/05/18 03/24/19 History sertraline 100 mg tablet 100 mg PO HS 01/05/18 03/24/19 History sodium chloride 0.65 % nasal spray 2 sprays INTNAS QPM ml 01/05/18 03/24/19 History aerosol trazodone 50 mg tablet 100 mg PO HS tab 01/05/18 03/24/19 History losartan 100 mg PO DAILY 12/11/18 03/24/19 History clindamycin HCl 300 mg capsule 300 mg PO BID #60 cap 02/03/19 03/24/19 Rx furosemide 20 mg PO DAILY 03/24/19 03/24/19 History metoprolol succinate 25 mg PO DAILY 03/24/19 03/24/19 History ranitidine HCl 150 mg PO HS 03/24/19 03/24/19 History Past Med/Surg History Medical History (Updated 03/24/19 @ 17:51 by PAKO Cline) Antiphospholipid antibody syndrome Arteriovenous fistula (Chronic) Chronic combined systolic and diastolic CHF (congestive heart failure) Chronic venous insufficiency (Chronic) CKD (chronic kidney disease), stage III (Chronic) Depression (Chronic) Diabetes (Chronic) DVT (deep venous thrombosis) (Chronic) GERD (gastroesophageal reflux disease) (Chronic) Chaim filter in place (Chronic) History of idiopathic thrombocytopenic purpura (Chronic) History of pulmonary embolism (Chronic) HTN (hypertension) (Chronic) Hypercoagulable state (Chronic) "protein C deficiency, positive phospholipid AB syndrome, positive lupus 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" 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 (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) Lupus 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 positive Protein C deficiency Systemic lupus erythematosus (Chronic) Venous stasis ulcers of both lower extremities (Acute) Surgical History H/O exploratory laparotomy (Chronic) H/O hernia repair (Chronic) S/P appendectomy (Chronic) S/P section (Chronic) S/P cholecystectomy (Chronic) S/P hysterectomy (Chronic) Family History Mother Colorectal cancer Social History Preferred Language: Divehi Communication Ability: Effective 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 Beliefs That Will Affect Care: None Current Living Situation: Other Current Living Situation Comment: friends Other Information That Helps Us Care for You: No Feels Safe at Home: Yes Safety Concerns: Feels Safe At This Time Smoking Status: Never smoker Hx Alcohol Use: No Hx Substance Use: No Review of Systems Review of Systems: ROS per HPI, all other systems reviewed and negative Physical Exam Constitutional: WD/WN, vitals as above + obese Eyes: PERRL, conjunctivae normal, anicteric sclerae ENMT: external ear and nose normal, oropharynx normal Mouth: + poor dentition Respiratory: normal respiratory effort, lungs clear to auscultation Cardiovascular: Rate/Rhythm: regular rate and regular rhythm Vessels: normal peripheral pulses Extremities: + edema (+2 edema BLE) Gastrointestinal (Abdomen): normal bowel sounds, soft, nontender, no hepatosplenomegaly Musculoskeletal: no cyanosis or clubbing, extremities motor strength 5/5 Skin: no rashes, warm and dry Dressings recently placed by wound care center intact to bilateral lower extremities Neurologic: PERRL, EOMI, accommodation nl, no face palsy, no dysarthria Psychiatric: A+Ox3, euthymic affect Results & Data Vital Signs (Past 12 Hours) Vital Signs Temp Resp BP Pulse Ox 03/24/19 17:23 36.3 C L 16 165/98 H 93 Code Status & VTE Plan VTE Prophylaxis Plan VTE Prophylaxis will be ordered: Yes Supervising Physician Co-Signing Physician Notes Attending addendum: The patient was seen and examined in medical floor She is a 53-year-old obese female with significant past medical history including chronic combined systolic and diastolic heart failure, SLE, hypertension, history of pulmonary embolism and antiphospholipid antibody syndrome with chronic bilateral lower extremity cellulitis was sent in from wound clinic with worsening infection in the legs. Complains some pain with the legs but denies any other symptoms On examination Morbidly obese without any acute distress Afebrile and hemodynamically stable with blood pressure on the upper side Chest-clear to auscultate bilaterally Heart-S1-S2 regular Abdomen-benign Extremities-bilateral edema about 1+ with bilateral leg ulceration involving the area just below the knee joint up to the ankle. Has erythema involving the same area with multiple ulcerated skin lesion of various sizes, the largest could be about 5 x 6 x 7 cm. The ulcers involve the circumferential area on the left side. Tenderness on palpation Her labs and imaging studies reviewed including past culture and sensitivities Has been started on intravenous Zosyn as per recommendation from ID Agree with assessment and plan as outlined above by Steff Major (1) Systemic lupus erythematosus Systemic lupus erythematosus organ involvement: other Systemic lupus erythematosus type: other Qualified Code(s): M32.19 - Other organ or system involvement in systemic lupus erythematosus
[2019-03-24] MEDS: TRAMADOL HCL 50 MG TABLET PO PRN (17:51)
[2019-03-24 18:26] LABS: Basophils # (auto) 0.03 K/uL (0-0.2); Basophils % (auto) 0.4 %; Eosinophils # (auto) 0.01 K/uL (0-0.5); Eosinophils % (auto) 0.1 %; Hematocrit (blood only) 38.2 % (37-47); Hemoglobin 12.3 g/dL (12.0-16.0); Immature Granulocytes # (auto) 0.09 K/uL (0.00-0.02); Immature Granulocytes % (auto) 1.2 %; Lymphocytes # (auto) 1.51 K/uL (1.2-3.4); Lymphocytes % (auto) 20.2 %; Mean Corpuscular Hemoglobin 28.3 pg (25-34); Mean Corpuscular Hgb Conc 32.2 g/dL (32-36); Mean Platelet Volume 8.9 fL (7.4-10.4); Monocytes # (auto) 0.54 K/uL (0.11-0.59); Monocytes % (auto) 7.2 %; Neutrophils # (auto) 5.28 K/uL (1.4-6.5); Neutrophils % (auto) 70.9 %; Platelet Count 253 K/uL (130-400); RDW Coefficient of Variation 15.9 % (11.5-14.5); RDW Standard Deviation 50.8 fL (36.4-46.3); Red Blood Count 4.34 M/uL (4.2-5.4); White Blood Count 7.46 K/uL (4.8-10.8)
[2019-03-24 18:45] LABS: BUN Creatinine Ratio 17.7 (10-20); Calcium 9.6 mg/dl (8.5-10.1); Creatinine Clr Calc Pharmacy 93.5 ml/min; Est GFR (African American) 72.9; Est GFR (Non-African American) 62.9
[2019-03-24] MEDS ORDERED: ACETAMINOPHEN 1,000 MG/100 ML VIAL IV PRN (19:34)
[2019-03-24] MEDS: ACETAMINOPHEN 500 MG TAB PO PRN (21:41)
[2019-03-24] MEDS: APIXABAN 5 MG TABLET PO SCH (21:43)
[2019-03-24] MEDS: predniSONE 5 MG TAB PO SCH (21:43)
[2019-03-24] MEDS: SERTRALINE HCL 100 MG TABLET PO SCH (21:43)
[2019-03-24] MEDS: TRAZODONE HCL 100 MG TAB PO SCH (21:43)
[2019-03-24] MEDS: FOLIC ACID 1 MG TAB PO SCH (21:44)
[2019-03-24] MEDS: HYDROXYCHLOROQUINE SULFATE 200 MG TAB PO SCH (21:44)
[2019-03-24] MEDS ORDERED: INFLUENZA ADMINISTRATION CHARGE ONE (22:00)
[2019-03-24] MEDS ORDERED: INFLUENZA VIRUS QUAD VACCINE 0.5 ML SYR IM ONE (22:00)
[2019-03-25] MEDS: TRAMADOL HCL 50 MG TABLET PO PRN ×4 (00:48→19:33)
[2019-03-25] MEDS: PIPERACILLIN/TAZOBACTAM 4.5 GM in DEXTROSE 5% 100 ML IV SCH ×3 (00:52→16:29)
[2019-03-25 05:18] LABS: Hematocrit (blood only) 36.9 % (37-47); Hemoglobin 11.9 g/dL (12.0-16.0); Mean Corpuscular Hemoglobin 28.1 pg (25-34); Mean Corpuscular Hgb Conc 32.2 g/dL (32-36); Mean Corpuscular Volume 87.2 fL (80-100); Platelet Count 218 K/uL (130-400); RDW Coefficient of Variation 15.8 % (11.5-14.5); RDW Standard Deviation 50.6 fL (36.4-46.3); Red Blood Count 4.23 M/uL (4.2-5.4); White Blood Count 9.98 K/uL (4.8-10.8)
[2019-03-25 05:44] LABS: Calcium 8.9 mg/dl (8.5-10.1); Est GFR (African American) 65.9; Est GFR (Non-African American) 56.8
[2019-03-25] MEDS: ACETAMINOPHEN 500 MG TAB PO PRN ×2 (06:17→16:28)
[2019-03-25] MEDS: METOPROLOL SUCC 25MG EXT REL TAB PO SCH (07:41)
[2019-03-25] MEDS: FUROSEMIDE 20 MG TAB PO SCH (07:41)
[2019-03-25] MEDS: LOSARTAN POTASSIUM 50 MG TAB PO SCH (07:41)
[2019-03-25] MEDS: CALCIUM 600MG + VIT D 400 IU TAB PO SCH (07:41)
[2019-03-25] MEDS: APIXABAN 5 MG TABLET PO SCH ×2 (07:42→21:12)
[2019-03-25] MEDS: CEROVITE ADV FORMULA TAB PO SCH (07:42)
[2019-03-25] MEDS ORDERED: CALCIUM CARBONATE 1000 MG PO SCH (09:00)
--- NOTE | 2019-03-25 10:08 | Hospitalist Progress Note ---
Date of Service March 25, 2019 Assessment & Plan (1) Wound infection: (2) MSSA (methicillin susceptible Staphylococcus aureus) infection: (3) Pseudomonas aeruginosa infection: -Hospital day 2 -Patient referred by Dr. Krishnan for direct admission for management of infected bilateral lower extremity venous ulcers -Patient has been on p.o. clindamycin for a prolonged period of time without improvement -Recent culture growing MSSA and Pseudomonas -Per ID recommendations, on IV Zosyn (day #2) -will need long-term, will start arranging for PICC line -Does not appear septic -Wound care consult (4) Chronic combined systolic and diastolic CHF (congestive heart failure): -Admitted in December and found to have new onset systolic CHF -Echo 12/2018-EF 45%, grade 2 diastolic dysfunction -Appears euvolemic on exam, continue home dose of diuretic -Continue beta-maria elena -Cardiac cath was attempted during previous admission however patient had poor access, is scheduled to have a stress test as an outpatient (5) Systemic lupus erythematosus: -Continue prednisone and Plaquenil -Also receives Benlysta injections (6) HTN (hypertension): -BP controlled, continue losartan and metoprolol (7) History of pulmonary embolism: (8) DVT (deep venous thrombosis): (9) Antiphospholipid antibody syndrome: (10) Protein C deficiency: (11) Lupus 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 positive: -Continue Eliquis and folic acid (12) GERD (gastroesophageal reflux disease): -Continue H2 maria elena (13) Depression: -Continue home medications (14) DVT prophylaxis: -On Eliquis Supervising Physician Co-Signing Physician Notes ATTENDING ADDENDUM : pt seen and examined , care co-ordinated with Steff MIN 53 yo F with multiple medical issues , chronic bilateral lower ext cellulitis PHYSICAL EXAM : GENERAL: No sign of distress,obese HEENT: Sclera nonicteric, Normal oral mucosa, neck: No JVD, trachea midline Lungs: Clear to auscultate, no wheeze or rales Cardiovascular: Regular S1 and S2, Abdomen: Soft, nontender, bowel sounds active, Extremities: Bilateral lower ext chronic wound , dressing /wraps present , no drainage noted Neuro: No focal neurological deficit, no dysarthria, no facial droop Psych: Alert awake oriented x3: Euthymic INFECTED BILATERAL LOWER EXT CELLULITIS : -Patient referred by Dr. Krishnan for direct admission for management of infected bilateral lower extremity venous ulcers - -Recent wound culture 03/22/19 : MSSA and Pseudomonas (Patient has been on p.o. clindamycin for a prolonged period of time without improvement) JOSÉ washburn requested , appreciate input -Per Dr Krishnan recommendations, pt will need skilled nursing IV Zosyn tx ordered for PICC line consent obtained pt is comfortable with PICC line and home Abx wound care consulted for continued care , appreciate input HYPERCOAGULABLE STATUS: on eliquis Please refer to further documentation by Steff MIN for discussion of chronic issues Lexi Pavon MD Subjective Patient seen and examined. Resting in bed, no acute distress. Feels well, offers no complaints. Denies chest pain shortness of breath. No lightheadedness or dizziness. Denies abdominal pain and nausea. Physical Exam Constitutional: + obese; no acute distress Resting in bed Respiratory: normal respiratory effort, lungs clear to auscultation Cardiovascular: Rate/Rhythm: regular rate and regular rhythm Vessels: normal peripheral pulses Extremities: + edema (+2 edema BLE) Skin: no rashes, warm and dry Dressings intact to bilateral lower extremities Psychiatric: Orientation: alert and oriented x 3 Affect: + flat affect Results & Data Vital Signs (Past 12 Hours) Vital Signs Temp Pulse Resp BP Pulse Ox 03/25/19 07:28 37 C 109 H 18 135/79 91 03/24/19 22:57 36.7 C 95 H 18 131/74 94 Laboratory Results Short CBC 03/24/19 03/25/19 Range/Units 18:12 04:54 WBC 7.46 9.98 (4.8-10.8) K/uL Hgb 12.3 11.9 L (12.0-16.0) g/dL Hct 38.2 36.9 L (37-47) % Plt Count 253 218 (130-400) K/uL BMP 03/24/19 03/25/19 18:12 04:54 Sodium 140 140 Potassium 4.0 4.0 Chloride 109 H 108 H Carbon Dioxide 26 26 BUN 18 17 Creatinine 1.03 1.12 Glucose 91 95 Calcium 9.6 8.9 (1) Systemic lupus erythematosus Systemic lupus erythematosus organ involvement: other Systemic lupus erythematosus type: other Qualified Code(s): M32.19 - Other organ or system involvement in systemic lupus erythematosus
--- NOTE | 2019-03-25 11:02 | Infectious Disease Consult ---
Date of Consultation March 25, 2019 Assessment & Plan (1) Venous stasis ulcers of both lower extremities: continue zosyn, supsect min 14 days. continue local wound care. will follow. (2) MSSA (methicillin susceptible Staphylococcus aureus) infection: (3) Pseudomonas aeruginosa infection: History of Present Illness Attending Physician: Lexi Pavon MD pt admitted with worsening leg ulcers, increased pain, was on po abx but decision was made at wound center yesterday to admit for IV zosyn. wound culture on 03/18 grew pseudomonas, patiño sensitive and MSSA. She is now on zosyn and tolerating well. Has followed with Dr. Krishnan in wound center. has sle and longstanding leg ulcers. she currently denies any pain, no f/c. no abd pain, no n/v/d. overall feeling well. Allergies Allergy/AdvReac Type Severity Reaction Status Date / Time heparin Allergy Severe HIT R/O Verified 03/24/19 13:26 from last hospital admission - rather was dx w/ ITP vancomycin Allergy Intermediate RASH Verified 03/24/19 13:26 tetracycline Allergy Mild RASH, Verified 03/24/19 13:26 PRURITIS amlodipine Allergy Unknown Unknown Verified 03/24/19 13:26 bacitracin Allergy Unknown Unknown Verified 03/24/19 13:26 doxycycline Allergy Unknown UNKNOWN Verified 03/24/19 13:26 polymyxin B Allergy Unknown Unknown Verified 03/24/19 13:26 Home Medications Home Medications Medication Instructions Recorded Confirmed Type acetaminophen 500 mg tablet 1,000 mg PO Q8H PRN tab 01/05/18 03/24/19 History apixaban 5 mg tablet 5 mg PO BID tab 01/05/18 03/24/19 History belimumab 400 mg intravenous 1,200 mg IV UD ea 01/05/18 03/24/19 History solution calcium carbonate 500 mg (1,250 1 tab PO QAM tab 01/05/18 03/24/19 History mg)-vitamin D3 200 unit tablet calcium carbonate 500 mg calcium 1,000 mg PO DAILY tab 01/05/18 03/24/19 History (1,250 mg) chewable tablet diphenhydramine HCl 25 mg tablet 25 mg PO Q6H PRN tab 01/05/18 03/24/19 History fluticasone propionate 50 2 sprays INTNAS BID gm 01/05/18 03/24/19 History mcg/actuation nasal spray,suspension folic acid 1 mg tablet 1 mg PO HS 01/05/18 03/24/19 History hydroxychloroquine 200 mg tablet 400 mg PO PM tab 01/05/18 03/24/19 History multivitamin with minerals 1 cap PO QAM cap 01/05/18 03/24/19 History prednisone 5 mg tablet 5 mg PO HS 01/05/18 03/24/19 History sertraline 100 mg tablet 100 mg PO HS 01/05/18 03/24/19 History sodium chloride 0.65 % nasal spray 2 sprays INTNAS QPM ml 01/05/18 03/24/19 History aerosol trazodone 50 mg tablet 100 mg PO HS tab 01/05/18 03/24/19 History losartan 100 mg PO DAILY 12/11/18 03/24/19 History clindamycin HCl 300 mg capsule 300 mg PO BID #60 cap 02/03/19 03/24/19 Rx furosemide 20 mg PO DAILY 03/24/19 03/24/19 History metoprolol succinate 25 mg PO DAILY 03/24/19 03/24/19 History ranitidine HCl 150 mg PO HS 03/24/19 03/24/19 History Patient History Medical History Antiphospholipid antibody syndrome Arteriovenous fistula (Chronic) Chronic combined systolic and diastolic CHF (congestive heart failure) Chronic venous insufficiency (Chronic) CKD (chronic kidney disease), stage III (Chronic) Depression (Chronic) Diabetes (Chronic) DVT (deep venous thrombosis) (Chronic) GERD (gastroesophageal reflux disease) (Chronic) Chaim filter in place (Chronic) History of idiopathic thrombocytopenic purpura (Chronic) History of pulmonary embolism (Chronic) HTN (hypertension) (Chronic) Hypercoagulable state (Chronic) "protein C deficiency, positive phospholipid AB syndrome, 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) Lupus 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 positive Protein C deficiency Systemic lupus erythematosus (Chronic) Venous stasis ulcers of both lower extremities (Acute) Surgical History H/O exploratory laparotomy (Chronic) H/O hernia repair (Chronic) S/P appendectomy (Chronic) S/P section (Chronic) S/P cholecystectomy (Chronic) S/P hysterectomy (Chronic) Family History Mother Colorectal cancer Social History Preferred Language: Nigerien Communication Ability: Effective Banking Consultant Required: No Beliefs That Will Affect Care: None marital status: Single Current Living Situation: Other Current Living Situation Comment: friends Other Information That Helps Us Care for You: No Feels Safe at Home: Yes Safety Concerns: Feels Safe At This Time Smoking Status: Never smoker Hx Alcohol Use: No Hx Substance Use: No Review of Systems Review of Systems: All systems reviewed & are unremarkable except as noted in HPI & below Physical Exam Constitutional: WD/WN, vitals as above Eyes: PERRL, conjunctivae normal, anicteric sclerae ENMT: external ear and nose normal, oropharynx normal Neck: normal visual inspection Respiratory: normal respiratory effort, lungs clear to auscultation Cardiovascular: RRR, no murmur, no edema Gastrointestinal (Abdomen): normal bowel sounds, soft, nontender, no hepatosplenomegaly Musculoskeletal: no cyanosis or clubbing, extremities motor strength 5/5 Skin: no rashes, warm and dry + wound (dressing intact) Psychiatric: A+Ox3, euthymic affect Results & Data Vital Signs (Past 12 Hours) Vital Signs Temp Pulse Resp BP Pulse Ox 03/25/19 07:28 37 C 109 H 18 135/79 91 PG Care Time/CCT Total # of Minutes Spent Total Time Spent with Patient: Total time spent is greater than 50% in coordination of care (as documented) at patient's floor/unit and/or counseling patient:
[2019-03-25] MEDS: DAKIN'S SOLN 0.125% QUARTER STRENGTH 473 ML BTL EXT SCH ×2 (12:26→21:15)
--- NOTE | 2019-03-25 14:32 | Wound Consultation ---
Date of Consultation March 25, 2019 Assessment & Plan (1) Wound infection: Is a 53-year-old female with chronic venous insufficiency and secondary Pseudomonas infection. No debridement was required today. Legs will be dressed with 0.25% Dakin solution 3 times daily. Continue IV antibiotics. We will continue to follow. Please not hesitate to call with any questions. (2) Pseudomonas aeruginosa infection: (3) Venous stasis ulcers of both lower extremities: History of Present Illness Reason for Consultation: Cellulitis bilateral lower extremities Attending Physician: Lexi Pavon MD This is a 53-year-old female who is well-known to the wound clinic and was admitted to the hospital yesterday with worsening Pseudomonas infection of bilateral lower extremities. Patient has underlying lupus, combined heart failure, antiphospholipid antibody syndrome chronic venous insufficiency, CKD stage III and GERD. Patient states her pain is better from yesterday. Allergies Allergy/AdvReac Type Severity Reaction Status Date / Time heparin Allergy Severe HIT R/O Verified 03/24/19 13:26 from last hospital admission - rather was dx w/ ITP vancomycin Allergy Intermediate RASH Verified 03/24/19 13:26 tetracycline Allergy Mild RASH, Verified 03/24/19 13:26 PRURITIS amlodipine Allergy Unknown Unknown Verified 03/24/19 13:26 bacitracin Allergy Unknown Unknown Verified 03/24/19 13:26 doxycycline Allergy Unknown UNKNOWN Verified 03/24/19 13:26 polymyxin B Allergy Unknown Unknown Verified 03/24/19 13:26 Home Medications Home Medications Medication Instructions Recorded Confirmed Type acetaminophen 500 mg tablet 1,000 mg PO Q8H PRN tab 01/05/18 03/24/19 History apixaban 5 mg tablet 5 mg PO BID tab 01/05/18 03/24/19 History belimumab 400 mg intravenous 1,200 mg IV UD ea 01/05/18 03/24/19 History solution calcium carbonate 500 mg (1,250 1 tab PO QAM tab 01/05/18 03/24/19 History mg)-vitamin D3 200 unit tablet calcium carbonate 500 mg calcium 1,000 mg PO DAILY tab 01/05/18 03/24/19 History (1,250 mg) chewable tablet diphenhydramine HCl 25 mg tablet 25 mg PO Q6H PRN tab 01/05/18 03/24/19 History fluticasone propionate 50 2 sprays INTNAS BID gm 01/05/18 03/24/19 History mcg/actuation nasal spray,suspension folic acid 1 mg tablet 1 mg PO HS 01/05/18 03/24/19 History hydroxychloroquine 200 mg tablet 400 mg PO PM tab 01/05/18 03/24/19 History multivitamin with minerals 1 cap PO QAM cap 01/05/18 03/24/19 History prednisone 5 mg tablet 5 mg PO HS 01/05/18 03/24/19 History sertraline 100 mg tablet 100 mg PO HS 01/05/18 03/24/19 History sodium chloride 0.65 % nasal spray 2 sprays INTNAS QPM ml 01/05/18 03/24/19 History aerosol trazodone 50 mg tablet 100 mg PO HS tab 01/05/18 03/24/19 History losartan 100 mg PO DAILY 12/11/18 03/24/19 History clindamycin HCl 300 mg capsule 300 mg PO BID #60 cap 02/03/19 03/24/19 Rx furosemide 20 mg PO DAILY 03/24/19 03/24/19 History metoprolol succinate 25 mg PO DAILY 03/24/19 03/24/19 History ranitidine HCl 150 mg PO HS 03/24/19 03/24/19 History Patient History Medical History Antiphospholipid antibody syndrome Arteriovenous fistula (Chronic) Chronic combined systolic and diastolic CHF (congestive heart failure) Chronic venous insufficiency (Chronic) CKD (chronic kidney disease), stage III (Chronic) Depression (Chronic) Diabetes (Chronic) DVT (deep venous thrombosis) (Chronic) GERD (gastroesophageal reflux disease) (Chronic) Chaim filter in place (Chronic) History of idiopathic thrombocytopenic purpura (Chronic) History of pulmonary embolism (Chronic) HTN (hypertension) (Chronic) Hypercoagulable state (Chronic) "protein C deficiency, positive phospholipid AB syndrome, positive lupus 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" long term current use of 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 (Acute) Lupus 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 positive Protein C deficiency Systemic lupus erythematosus (Chronic) Venous stasis ulcers of both lower extremities (Acute) Surgical History H/O exploratory laparotomy (Chronic) H/O hernia repair (Chronic) S/P appendectomy (Chronic) S/P section (Chronic) S/P cholecystectomy (Chronic) S/P hysterectomy (Chronic) Family History Mother Colorectal cancer Social History Preferred Language: Eritrean Communication Ability: Effective Composite Assembler Required: No Beliefs That Will Affect Care: None marital status: Single Current Living Situation: Other Current Living Situation Comment: friends Other Information That Helps Us Care for You: No Feels Safe at Home: Yes Safety Concerns: Feels Safe At This Time Smoking Status: Never smoker Hx Alcohol Use: No Hx Substance Use: No Review of Systems Review of Systems: All systems reviewed & are unremarkable except as noted in HPI & below Physical Exam Skin: Legs measuring as recorded in nursing documentation. They are erythematous with large amount of purulent drainage. There is foul odor. Neurologic: awake; not confused Psychiatric: A+Ox3, euthymic affect Results & Data Vital Signs (Past 12 Hours) Vital Signs Temp Pulse Resp BP Pulse Ox 03/25/19 07:28 37 C 109 H 18 135/79 91 PG Care Time/CCT Total # of Minutes Spent Total Time Spent with Patient: Total time spent is greater than 50% in coordination of care (as documented) at patient's floor/unit and/or counseling patient:
[2019-03-25] MEDS: FOLIC ACID 1 MG TAB PO SCH (21:11)
[2019-03-25] MEDS: HYDROXYCHLOROQUINE SULFATE 200 MG TAB PO SCH (21:11)
[2019-03-25] MEDS: SERTRALINE HCL 100 MG TABLET PO SCH (21:12)
[2019-03-25] MEDS: predniSONE 5 MG TAB PO SCH (21:12)
[2019-03-25] MEDS: TRAZODONE HCL 100 MG TAB PO SCH (21:12)
[2019-03-26] MEDS: PIPERACILLIN/TAZOBACTAM 4.5 GM in DEXTROSE 5% 100 ML IV SCH ×4 (00:11→23:40)
[2019-03-26] MEDS: ACETAMINOPHEN 500 MG TAB PO PRN (00:15)
[2019-03-26] MEDS: TRAMADOL HCL 50 MG TABLET PO PRN ×3 (04:19→22:25)
[2019-03-26 06:39] LABS: Hematocrit (blood only) 33.6 % (37-47); Hemoglobin 10.8 g/dL (12.0-16.0); Mean Corpuscular Hemoglobin 28.1 pg (25-34); Mean Corpuscular Hgb Conc 32.1 g/dL (32-36); Mean Corpuscular Volume 87.3 fL (80-100); Mean Platelet Volume 8.8 fL (7.4-10.4); Platelet Count 183 K/uL (130-400); RDW Coefficient of Variation 15.8 % (11.5-14.5); RDW Standard Deviation 50.7 fL (36.4-46.3); Red Blood Count 3.85 M/uL (4.2-5.4); White Blood Count 6.02 K/uL (4.8-10.8)
[2019-03-26 07:15] LABS: BUN Creatinine Ratio 16.1 (10-20); Calcium 8.8 mg/dl (8.5-10.1); Creatinine Clr Calc Pharmacy 88.4 ml/min; Est GFR (African American) 68.1; Est GFR (Non-African American) 58.7; Potassium 3.7 mmol/L (3.5-5.1)
[2019-03-26] MEDS: DAKIN'S SOLN 0.125% QUARTER STRENGTH 473 ML BTL EXT SCH (07:35)
[2019-03-26] MEDS: LOSARTAN POTASSIUM 50 MG TAB PO SCH (07:36)
[2019-03-26] MEDS: METOPROLOL SUCC 25MG EXT REL TAB PO SCH (07:36)
[2019-03-26] MEDS: FUROSEMIDE 20 MG TAB PO SCH (07:36)
[2019-03-26] MEDS: APIXABAN 5 MG TABLET PO SCH ×2 (07:36→20:46)
[2019-03-26] MEDS: CALCIUM 600MG + VIT D 400 IU TAB PO SCH (07:36)
[2019-03-26] MEDS: CEROVITE ADV FORMULA TAB PO SCH (07:36)
--- NOTE | 2019-03-26 16:02 | Hospitalist Progress Note ---
Date of Service March 26, 2019 Assessment & Plan (1) Wound infection: (2) MSSA (methicillin susceptible Staphylococcus aureus) infection: (3) Pseudomonas aeruginosa infection: -Hospital day 2 -Patient referred by Dr. Krishnan for direct admission for management of infected bilateral lower extremity venous ulcers -Patient has been on p.o. clindamycin for a prolonged period of time without improvement -Recent culture growing MSSA and Pseudomonas -Per ID recommendations, on IV Zosyn (day #3) -will need long-term, will start arranging for PICC line -Does not appear septic -Wound care consulted , apprecite input (4) Chronic combined systolic and diastolic CHF (congestive heart failure): -Admitted in December and found to have new onset systolic CHF -Echo 12/2018-EF 45%, grade 2 diastolic dysfunction -Appears euvolemic on exam, continue home dose of diuretic -Continue beta-maria elena -Cardiac cath was attempted during previous admission however patient had poor access, is scheduled to have a stress test as an outpatient (5) Systemic lupus erythematosus: -Continue prednisone and Plaquenil -Also receives Benlysta injections (6) HTN (hypertension): -BP controlled, continue losartan and metoprolol (7) History of pulmonary embolism: (8) DVT (deep venous thrombosis): (9) Antiphospholipid antibody syndrome: (10) Protein C deficiency: (11) Lupus 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 positive: -Continue Eliquis and folic acid (12) GERD (gastroesophageal reflux disease): -Continue H2 maria elena (13) Depression: -Continue home medications (14) DVT prophylaxis: -On Eliquis Subjective offers no new complain Feels well, no fever or chills no pain or discomfort on lower extremity Physical Exam Constitutional: WD/WN, vitals as above + obese; no acute distress Eyes: PERRL, conjunctivae normal, anicteric sclerae ENMT: external ear and nose normal, oropharynx normal Mouth: + poor dentition Respiratory: normal respiratory effort, lungs clear to auscultation Cardiovascular: Rate/Rhythm: regular rate and regular rhythm Vessels: normal peripheral pulses Extremities: + edema (+2 edema BLE) Gastrointestinal (Abdomen): normal bowel sounds, soft, nontender, no hepatosplenomegaly Musculoskeletal: no cyanosis or clubbing, extremities motor strength 5/5 Skin: no rashes, warm and dry Neurologic: PERRL, EOMI, accommodation nl, no face palsy, no dysarthria Psychiatric: A+Ox3, euthymic affect Orientation: alert and oriented x 3 Affect: + flat affect Results & Data Vital Signs (Past 12 Hours) Vital Signs Temp Pulse Resp BP Pulse Ox 03/26/19 15:03 36.7 C 80 20 124/82 97 03/26/19 07:15 36.9 C 78 22 117/76 91 (1) Systemic lupus erythematosus Systemic lupus erythematosus organ involvement: other Systemic lupus erythematosus type: other Qualified Code(s): M32.19 - Other organ or system involvement in systemic lupus erythematosus
[2019-03-26] MEDS ORDERED: KETOROLAC TROMETHAMINE 15 MG/ML VIAL IV ONE (18:21)
[2019-03-26] MEDS: HYDROXYCHLOROQUINE SULFATE 200 MG TAB PO SCH (20:47)
[2019-03-26] MEDS: TRAZODONE HCL 100 MG TAB PO SCH (20:47)
[2019-03-26] MEDS: FOLIC ACID 1 MG TAB PO SCH (20:47)
[2019-03-26] MEDS: predniSONE 5 MG TAB PO SCH (20:48)
[2019-03-26] MEDS: SERTRALINE HCL 100 MG TABLET PO SCH (20:48)
[2019-03-27] MEDS: TRAMADOL HCL 50 MG TABLET PO PRN (05:17)
[2019-03-27 07:06] LABS: Creatinine Clr Calc Pharmacy 99.3 ml/min; Est GFR (African American) 78.4; Est GFR (Non-African American) 67.6
[2019-03-27] MEDS: APIXABAN 5 MG TABLET PO SCH ×2 (07:34→21:05)
[2019-03-27] MEDS: CEROVITE ADV FORMULA TAB PO SCH (07:34)
[2019-03-27] MEDS: CALCIUM 600MG + VIT D 400 IU TAB PO SCH (07:34)
[2019-03-27] MEDS: FUROSEMIDE 20 MG TAB PO SCH (07:34)
[2019-03-27] MEDS: DAKIN'S SOLN 0.125% QUARTER STRENGTH 473 ML BTL EXT SCH (07:34)
[2019-03-27] MEDS: METOPROLOL SUCC 25MG EXT REL TAB PO SCH (07:34)
[2019-03-27] MEDS: LOSARTAN POTASSIUM 50 MG TAB PO SCH (07:34)
[2019-03-27] MEDS: PIPERACILLIN/TAZOBACTAM 4.5 GM in DEXTROSE 5% 100 ML IV SCH ×2 (07:34→15:34)
[2019-03-27] MEDS: KETOROLAC TROMETHAMINE 15 MG/ML VIAL IV PRN ×3 (08:18→21:05)
--- NOTE | 2019-03-27 12:02 | Hospitalist Progress Note ---
Date of Service March 27, 2019 Assessment & Plan (1) Wound infection: (2) MSSA (methicillin susceptible Staphylococcus aureus) infection: (3) Pseudomonas aeruginosa infection: - -Patient referred by Dr. Krishnan for direct admission for management of infected bilateral lower extremity venous ulcers -Patient has been on p.o. clindamycin for a prolonged period of time without improvement -Recent culture growing MSSA and Pseudomonas -Per ID recommendations, on IV Zosyn (day #4) -will need 2 weeks of IV Zosyn PICC line placed Given every 8 hours IV antibiotic dose, patient will benefit with continuous infusion at home -Wound care consulted, appreciate input Need weekly wound care follow-up on discharge DIARRHEA/LOOSE STOOL 2 episode of loose stool reported by patient this morning No blood in stool Given long-term antibiotic use,(was on clindamycin p.o. prior to admission)-high risk for C. difficile infection Ordered for stool for C. difficile Added scheduled dose of probiotics (4) Chronic combined systolic and diastolic CHF (congestive heart failure): -Admitted in December and found to have new onset systolic CHF -Echo 12/2018-EF 45%, grade 2 diastolic dysfunction -No evidence of volume overload, no orthopnea, no cough no dyspnea on exertion Patient is continued with outpatient diuretics -Continue beta-maria elena -Cardiac cath was attempted during previous admission however patient had poor access, is scheduled to have a stress test as an outpatient (5) Systemic lupus erythematosus: -Continue prednisone and Plaquenil -Also receives Benlysta injections (6) HTN (hypertension): -BP controlled, continue losartan and metoprolol (7) History of pulmonary embolism: Hypercoagulable status due to antiphospholipid antibody syndrome/protein C deficiency On Eliquis (8) DVT (deep venous thrombosis): (9) Antiphospholipid antibody syndrome: On Eliquis (10) Protein C deficiency: On Eliquis (11) Lupus 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 positive: -Continue Eliquis and folic acid (12) GERD (gastroesophageal reflux disease): -Continue H2 maria elena (13) Depression: -Continue home medications (14) DVT prophylaxis: -On Eliquis CODE STATUS: Full code Disposition: Plan to discharge home possible tomorrow with home IV antibiotics will need arrangements for continuous infusion of IV Zosyn at home for 14 days- we will update CM/she has a PICC line already Wound care clinic follow-up in 1 week Subjective Patient had burning pain bilateral lower extremity earlier this morning, Symptom is not improved with as needed tramadol Given IV Toradol 15 mg X1 yesterday, patient reports significant improvement of symptom Ordered for IV Toradol 15 mg every 6 hours PRN No fever or chills, denies of any cough, no shortness of breath, no dyspnea on exertion Had 2 episode of loose bowel movement this morning No abdominal pain, no nausea vomiting Physical Exam Constitutional: WD/WN, vitals as above + obese; no acute distress Eyes: PERRL, conjunctivae normal, anicteric sclerae ENMT: external ear and nose normal, oropharynx normal Mouth: + poor dentition Respiratory: normal respiratory effort, lungs clear to auscultation Cardiovascular: Rate/Rhythm: regular rate and regular rhythm Vessels: normal peripheral pulses Extremities: + edema (+2 edema BLE) Gastrointestinal (Abdomen): normal bowel sounds, soft, nontender, no hepatosplenomegaly Musculoskeletal: no cyanosis or clubbing, extremities motor strength 5/5 Skin: no rashes, warm and dry Neurologic: PERRL, EOMI, accommodation nl, no face palsy, no dysarthria Psychiatric: A+Ox3, euthymic affect Orientation: alert and oriented x 3 Affect: + flat affect Results & Data Vital Signs (Past 12 Hours) Vital Signs Temp Pulse Resp BP Pulse Ox 03/27/19 07:04 36.5 C 69 18 152/74 H 98 (1) Systemic lupus erythematosus Systemic lupus erythematosus organ involvement: other Systemic lupus erythematosus type: other Qualified Code(s): M32.19 - Other organ or system involvement in systemic lupus erythematosus
[2019-03-27] MEDS: LACTOBACILLUS ACIDOPHILUS (FLORANEX) TAB PO SCH (18:41)
[2019-03-27] MEDS: TRAZODONE HCL 100 MG TAB PO SCH (21:04)
[2019-03-27] MEDS: predniSONE 5 MG TAB PO SCH (21:04)
[2019-03-27] MEDS: HYDROXYCHLOROQUINE SULFATE 200 MG TAB PO SCH (21:04)
[2019-03-27] MEDS: FOLIC ACID 1 MG TAB PO SCH (21:05)
[2019-03-27] MEDS: SERTRALINE HCL 100 MG TABLET PO SCH (21:07)
[2019-03-28] MEDS: PIPERACILLIN/TAZOBACTAM 4.5 GM in DEXTROSE 5% 100 ML IV SCH ×4 (00:22→23:29)
[2019-03-28] MEDS: TRAMADOL HCL 50 MG TABLET PO PRN ×3 (05:52→23:35)
[2019-03-28] MEDS: DAKIN'S SOLN 0.125% QUARTER STRENGTH 473 ML BTL EXT SCH (05:54)
[2019-03-28 06:36] LABS: Creatinine Clr Calc Pharmacy 91.7 ml/min; Est GFR (African American) 71.2; Est GFR (Non-African American) 61.4
[2019-03-28] MEDS: LOSARTAN POTASSIUM 50 MG TAB PO SCH (07:34)
[2019-03-28] MEDS: CALCIUM 600MG + VIT D 400 IU TAB PO SCH (07:34)
[2019-03-28] MEDS: APIXABAN 5 MG TABLET PO SCH ×2 (07:34→21:44)
[2019-03-28] MEDS: METOPROLOL SUCC 25MG EXT REL TAB PO SCH (07:35)
[2019-03-28] MEDS: CEROVITE ADV FORMULA TAB PO SCH (07:35)
[2019-03-28] MEDS: FUROSEMIDE 20 MG TAB PO SCH (07:35)
[2019-03-28] MEDS: LACTOBACILLUS ACIDOPHILUS (FLORANEX) TAB PO SCH ×3 (07:35→18:03)
--- NOTE | 2019-03-28 10:51 | Infectious Disease Progress Nt ---
Date of Service March 28, 2019 Assessment & Plan (1) Venous stasis ulcers of both lower extremities: continue zosyn, supsect min 14 days. continue local wound care. will plan to follow in wound center post d/c. ok for d/c from ID standpoint when otherwise stable. (2) MSSA (methicillin susceptible Staphylococcus aureus) infection: (3) Pseudomonas aeruginosa infection: Subjective pt seen in followup, doing well. tolerating zosyn. s/p picc line. less pain in legs. no f/c. no abd pain, no n/v/d. anxious to go home. Review of Systems Review of Systems: All systems reviewed & are unremarkable except as noted in HPI & below Physical Exam Constitutional: WD/WN, vitals as above Eyes: PERRL, conjunctivae normal, anicteric sclerae ENMT: external ear and nose normal, oropharynx normal Neck: normal visual inspection Respiratory: normal respiratory effort, lungs clear to auscultation Cardiovascular: RRR, no murmur, no edema Gastrointestinal (Abdomen): normal bowel sounds, soft, nontender, no hepatosplenomegaly Musculoskeletal: no cyanosis or clubbing, extremities motor strength 5/5 Skin: no rashes, warm and dry + wound (dressing intact) Psychiatric: A+Ox3, euthymic affect Results & Data Vital Signs (Past 12 Hours) Vital Signs Temp Pulse Pulse Resp BP Pulse Ox 03/28/19 08:06 36.7 C 67 20 129/67 98 03/27/19 23:47 36.8 C 68 16 104/61 97 PG Care Time/CCT Total # of Minutes Spent Total Time Spent with Patient: Total time spent is greater than 50% in coordination of care (as documented) at patient's floor/unit and/or counseling patient:
[2019-03-28] MEDS: KETOROLAC TROMETHAMINE 15 MG/ML VIAL IV PRN ×2 (15:31→22:16)
--- NOTE | 2019-03-28 17:58 | Hospitalist Progress Note ---
Date of Service March 28, 2019 Assessment & Plan (1) Wound infection: (2) MSSA (methicillin susceptible Staphylococcus aureus) infection: (3) Pseudomonas aeruginosa infection: - -Patient referred by Dr. Krishnan for direct admission for management of infected bilateral lower extremity venous ulcers -Patient has been on p.o. clindamycin for a prolonged period of time without improvement -Recent culture growing MSSA and Pseudomonas -Per ID recommendations, -will need 2 weeks of IV Zosyn on Abx (day #5) PICC line placed pt can not afford co-pay for home IV ABx referral made to rehab /[facility] -Wound care consulted, appreciate input Need weekly wound care follow-up on discharge DIARRHEA/LOOSE STOOL no further episode Given long-term antibiotic use,(was on clindamycin p.o. prior to admission)-high risk for C. difficile infection stool C diff Negative Added scheduled dose of probiotics (4) Chronic combined systolic and diastolic CHF (congestive heart failure): -Admitted in December and found to have new onset systolic CHF -Echo 12/2018-EF 45%, grade 2 diastolic dysfunction -No evidence of volume overload, no orthopnea, no cough no dyspnea on exertion Patient is continued with outpatient diuretics -Continue beta-maria elena -Cardiac cath was attempted during previous admission however patient had poor access, is scheduled to have a stress test as an outpatient (5) Systemic lupus erythematosus: -Continue prednisone and Plaquenil -Also receives Benlysta injections (6) HTN (hypertension): -BP controlled, continue losartan and metoprolol (7) History of pulmonary embolism: Hypercoagulable status due to antiphospholipid antibody syndrome/protein C deficiency On Eliquis (8) DVT (deep venous thrombosis): (9) Antiphospholipid antibody syndrome: On Eliquis (10) Protein C deficiency: On Eliquis (11) Lupus 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 positive: -Continue Eliquis and folic acid (12) GERD (gastroesophageal reflux disease): -Continue H2 maria elena (13) Depression: -Continue home medications (14) DVT prophylaxis: -On Eliquis CODE STATUS: Full code Disposition: will need rehab for 2 weeks of IV ABx referral made to [facility] Wound care clinic follow-up in 1 week Subjective offers no new complain getting IV Zosyn via PICC line experiencing occasional burning pain on both legs getting symptom relief with intermittent Tramdol and IV toradol Physical Exam Constitutional: WD/WN, vitals as above + obese; no acute distress Eyes: PERRL, conjunctivae normal, anicteric sclerae ENMT: external ear and nose normal, oropharynx normal Mouth: + poor dentition Respiratory: normal respiratory effort, lungs clear to auscultation Cardiovascular: Rate/Rhythm: regular rate and regular rhythm Vessels: normal peripheral pulses Extremities: + edema (+2 edema BLE) Gastrointestinal (Abdomen): normal bowel sounds, soft, nontender, no hepatosplenomegaly Musculoskeletal: no cyanosis or clubbing, extremities motor strength 5/5 Skin: no rashes, warm and dry Neurologic: PERRL, EOMI, accommodation nl, no face palsy, no dysarthria Psychiatric: A+Ox3, euthymic affect Orientation: alert and oriented x 3 Affect: + flat affect Results & Data Vital Signs (Past 12 Hours) Vital Signs Temp Pulse Pulse Resp BP Pulse Ox 03/28/19 14:56 36.7 C 72 16 106/67 91 03/28/19 08:06 36.7 C 67 20 129/67 98 (1) Systemic lupus erythematosus Systemic lupus erythematosus organ involvement: other Systemic lupus malick thematosus type: other Qualified Code(s): M32.19 - Other organ or system involvement in systemic lupus erythematosus
[2019-03-28] MEDS: TRAZODONE HCL 100 MG TAB PO SCH (21:42)
[2019-03-28] MEDS: SERTRALINE HCL 100 MG TABLET PO SCH (21:42)
[2019-03-28] MEDS: HYDROXYCHLOROQUINE SULFATE 200 MG TAB PO SCH (21:43)
[2019-03-28] MEDS: predniSONE 5 MG TAB PO SCH (21:43)
[2019-03-28] MEDS: FOLIC ACID 1 MG TAB PO SCH (21:43)
[2019-03-29] MEDS: KETOROLAC TROMETHAMINE 15 MG/ML VIAL IV PRN (04:59)
[2019-03-29] MEDS: DAKIN'S SOLN 0.125% QUARTER STRENGTH 473 ML BTL EXT SCH (04:59)
[2019-03-29] MEDS: PIPERACILLIN/TAZOBACTAM 4.5 GM in DEXTROSE 5% 100 ML IV SCH ×2 (08:27→15:25)
[2019-03-29] MEDS: LACTOBACILLUS ACIDOPHILUS (FLORANEX) TAB PO SCH ×3 (09:17→17:28)
[2019-03-29] MEDS: FUROSEMIDE 20 MG TAB PO SCH (09:18)
[2019-03-29] MEDS: METOPROLOL SUCC 25MG EXT REL TAB PO SCH (09:18)
[2019-03-29] MEDS: LOSARTAN POTASSIUM 50 MG TAB PO SCH (09:18)
[2019-03-29] MEDS: APIXABAN 5 MG TABLET PO SCH (09:18)
[2019-03-29] MEDS: CALCIUM 600MG + VIT D 400 IU TAB PO SCH (09:19)
[2019-03-29] MEDS: CEROVITE ADV FORMULA TAB PO SCH (09:19)
--- NOTE | 2019-03-29 14:19 | Discharge Summary ---
Date of Service March 29, 2019 Admission HPI Per Admitting Provider 53-year-old female who was directly admitted from the wound care center for management infected and worsening bilateral lower extremity wounds. Patient has history of chronic venous stasis with ulcers. She has been on clindamycin for a prolonged period of time and wounds continue to worsen. Most recent culture growing MSSA and Pseudomonas. Patient follows closely with the wound center and infectious disease. Patient denies fevers and chills. No chest pain or shortness of breath. Denies lightheadedness, dizziness, diaphoresis, syncopal events. No abdominal pain, nausea, vomiting, diarrhea. She denies any urinary symptoms. At the time my exam, patient is resting in bed no acute distress. Principal Diagnosis BILATERAL LOWER EXT CHRONIC VENOUS STASIS INFECTED WOUND WITH PSEUDOMONAS AND MRSA SYSTEMIC LUPUS ERYTHEMATOSUS Discharge Data Allergies Allergy/AdvReac Type Severity Reaction Status Date / Time heparin Allergy Severe HIT R/O Verified 03/24/19 13:26 from last hospital admission - rather was dx w/ ITP vancomycin Allergy Intermediate RASH Verified 03/24/19 13:26 tetracycline Allergy Mild RASH, Verified 03/24/19 13:26 PRURITIS amlodipine Allergy Unknown Unknown Verified 03/24/19 13:26 bacitracin Allergy Unknown Unknown Verified 03/24/19 13:26 doxycycline Allergy Unknown UNKNOWN Verified 03/24/19 13:26 polymyxin B Allergy Unknown Unknown Verified 03/24/19 13:26 Consultations 03/24/19 15:37 Consult Case Management - Discharge Planning Routine 03/24/19 16:12 Consult Infectious Diseases Routine 03/25/19 08:10 Consult Wound Care Provider Routine Hospital Course (1) Wound infection: (2) MSSA (methicillin susceptible Staphylococcus aureus) infection: (3) Pseudomonas aeruginosa infection: - -Patient referred by Dr. Krishnan for direct admission for management of infected bilateral lower extremity venous ulcers -Patient has been on p.o. clindamycin for a prolonged period of time without improvement -Recent culture growing MSSA and Pseudomonas -Per ID recommendations, -will need 2 weeks of IV Zosyn on Abx (day #6) PICC line placed pt can not afford co-pay for home IV ABx referral made to rehab /[facility] -accpeted stable wendy tx to rehab today -Wound care consulted, appreciate input Need weekly wound care follow-up on discharge DIARRHEA/LOOSE STOOL no further episode Given long-term antibiotic use,(was on clindamycin p.o. prior to admission)-high risk for C. difficile infection stool C diff Negative Added scheduled dose of probiotics (4) Chronic combined systolic and diastolic CHF (congestive heart failure): -Admitted in December and found to have new onset systolic CHF -Echo 12/2018-EF 45%, grade 2 diastolic dysfunction -No evidence of volume overload, no orthopnea, no cough no dyspnea on exertion Patient is continued with outpatient diuretics -Continue beta-maria elena -Cardiac cath was attempted during previous admission however patient had poor access, is scheduled to have a stress test as an outpatient (5) Systemic lupus erythematosus: -Continue prednisone and Plaquenil -Also receives Benlysta injections (6) HTN (hypertension): -BP controlled, continue losartan and metoprolol (7) History of pulmonary embolism: Hypercoagulable status due to antiphospholipid antibody syndrome/protein C deficiency On Eliquis (8) DVT (deep venous thrombosis): (9) Antiphospholipid antibody syndrome: On Eliquis (10) Protein C deficiency: On Eliquis (11) Lupus 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 positive: -Continue Eliquis and folic acid (12) GERD (gastroesophageal reflux disease): -Continue H2 maria elena (13) Depression: -Continue home medications (14) DVT prophylaxis: -On Eliquis CODE STATUS: Full code Disposition: will need rehab for 2 weeks of IV ABx referral made to [facility] health stable to be transferred to acute rehab today Total Time Total Time Spent Total Time Spent (In Minutes): 35 m ins Total Time Includes: Examination of the Patient, Discharge Planning and Medication Reconciliation Discharge Plan Discharge Items Patient Disposition: Transfer Inpatient Rehab Fac Reason For Visit: BILATERAL LOWER EXT CELLULITIS,OPEN AND DRAINING Discharge Diagnosis: BILATERAL LOWER EXT CHRONIC VENOUS STASIS INFECTED WOUND WITH PSEUDOMONAS AND MRSA SYSTEMIC LUPUS ERYTHEMATOSUS Activity: Resume your previous activity Non-emergency contact: Primary Care Provider Call non-emergency contact if: you have any medication questions Follow-up/Referrals: Deborah Muñoz DO [Primary Care Provider] - Diet: Heart Healthy Addtl Attending Provider Instructions: ANTIBIOTIC : ZOSYN IV 4.5 MG EVERY 8 HRS FOR 10 DAYS DISCONTINUE PICC LINE AFTER IV ANTIBIOTICS IS COMPLETED TAKE PROBIOTICS WHILE TAKING ANTIBIOTIC TO PREVENT ANTIBIOTIC INDUCED GASTROENTERITIS FOLLOW UP WITH FAMILY PHYSICIAN AFTER DISCHARGED FROM REHAB WOUND CARE : USE 1/4STRENGTH DAKIN'S SOLUTION SOAKS, CHANGE EVERY 8 HOURS TO CLEAN WOUNDS ON LOWER LEGS. WOUND CLINIC FOLLOW UP EVERY WEEK Pending Studies at Discharge: No Stand-Alone Forms: My [facility] Skilled Items Patient informed of condition?: Yes DNR: No Discharge Level of Care: Acute rehab Communicable Disease: No Discharge Prognosis: Stable Lines: PICC Urinary Catheter: No Medications and DC Order Prescriptions: New Lactobacillus acidoph-L.bulgar [Floranex] 1 million cell Tablet 4 tab PO TIDM 21 Days Qty: 84 RF: 0 piperacillin-tazobactam [Zosyn] 4.5 gram recon soln 4.5 gm IV Q8H 10 Days RF: 0 Continued acetaminophen [Tylenol Extra Strength] 500 mg tablet 1,000 mg PO Q8H PRN (Reason: Pain) RF: 0 apixaban [Eliquis] 5 mg tablet 5 mg PO BID RF: 0 belimumab [Benlysta] 400 mg recon soln 1,200 mg IV UD RF: 0 calcium carbonate 500 mg calcium (1,250 mg) tablet,chewable 1,000 mg PO DAILY RF: 0 calcium carbonate-vitamin D3 [Os-Marco A 500 + D3] 500 mg(1,250mg) -200 unit tablet 1 tab PO QAM RF: 0 diphenhydramine HCl [Allergy (diphenhydramine)] 25 mg tablet 25 mg PO Q6H PRN (Reason: itching) RF: 0 fluticasone propionate [Flonase Allergy Relief] 50 mcg/actuation spray,suspension 2 sprays INTNAS BID RF: 0 folic acid 1 mg tablet 1 mg PO HS RF: 0 hydroxychloroquine [Plaquenil] 200 mg tablet 400 mg PO PM RF: 0 multivitamin with minerals capsule 1 cap PO QAM RF: 0 prednisone 5 mg tablet 5 mg PO HS RF: 0 sodium chloride [Saline Nasal] 0.65 % aerosol,spray 2 sprays INTNAS QPM RF: 0 sertraline [Zoloft] 100 mg tablet 100 mg PO HS RF: 0 trazodone 50 mg tablet 100 mg PO HS RF: 0 losartan 100 mg Tablet 100 mg PO DAILY RF: 0 ranitidine HCl 150 mg tablet 150 mg PO HS RF: 0 furosemide 20 mg tablet 20 mg PO DAILY RF: 0 metoprolol succinate 25 mg tablet extended release 24 hr 25 mg PO DAILY RF: 0 Discontinued clindamycin HCl 300 mg capsule 300 mg PO BID Qty: 60 RF: 3 Discharge Orders: Discharge Order (Routine); Ordered 03/29/19 Ordered By: Lexi Pavon Admission Data Admit Date/Time: 03/24/19 14:39 Attending Provider: Lexi Pavon Admit Provider: Javier Major Primary Care Provider: Deborah Muñoz Other Providers: Jn Krishnan ; Paul Disla ; [facility] ; [facility] Other Interventions: Discharge Summary Assessment (RN) Last Done: 03/29/19 17:02
== END 2019-03-29 17:57 | DRG 300 ==
LOC: SUATTDRO 14:39 → 3N 14:39

== ENCOUNTER 2020-02-23 13:22 | Inpatient (IN) ==
[2020-02-23] MEDS ORDERED: SODIUM CHLORIDE 0.9% 1000ML 1,000 ML IV SCH (14:00)
[2020-02-23 14:17] LABS: Basophils # (auto) 0.02 K/uL (0-0.2); Basophils % (auto) 0.2 %; Eosinophils # (auto) 0.03 K/uL (0-0.5); Eosinophils % (auto) 0.3 %; Hematocrit (blood only) 37.3 % (37-47); Hemoglobin 11.5 g/dL (12.0-16.0); Immature Granulocytes # (auto) 0.08 K/uL (0.00-0.02); Immature Granulocytes % (auto) 0.9 %; Lymphocytes # (auto) 1.15 K/uL (1.2-3.4); Lymphocytes % (auto) 13.4 %; Mean Corpuscular Hgb Conc 30.8 g/dL (32-36); Mean Corpuscular Volume 84.4 fL (80-100); Mean Platelet Volume 9.3 fL (7.4-10.4); Monocytes # (auto) 0.75 K/uL (0.11-0.59); Monocytes % (auto) 8.7 %; Neutrophils # (auto) 6.57 K/uL (1.4-6.5); Neutrophils % (auto) 76.5 %; Nucleated RBC # (auto) 0.02 K/uL (0-0); Nucleated RBC % (auto) 0.2 %; Platelet Count 323 K/uL (130-400); RDW Coefficient of Variation 15.8 % (11.5-14.5); RDW Standard Deviation 48.3 fL (36.4-46.3); Red Blood Count 4.42 M/uL (4.2-5.4)
[2020-02-23 14:21] LABS: Albumin Level 3.5 gm/dl (3.4-5.0); BUN Creatinine Ratio 9.4 (10-20); Calcium 9.1 mg/dl (8.5-10.1); Creatinine Clr Calc Pharmacy 92.6 ml/min; Est GFR (African American) 67.6; Est GFR (Non-African American) 58.3; Potassium 3.8 mmol/L (3.5-5.1)
--- NOTE | 2020-02-23 14:28 | Emergency Department Note ---
Impression & Plan Weakness, Pulmonary edema, SVT (supraventricular tachycardia), Elevated troponin I level ED Provider Note NAME: DISHA CHURCH AGE: 54 SEX: F : 1965 ARRIVES VIA: Ambulance INFORMANT: Patient, ED PROVIDER(S): Grover Fontaine DO CHIEF COMPLAINT: Nausea and vomiting HPI: The patient is a 54-year-old female who presented to the emergency department for an evaluation of nausea vomiting diarrhea cough and earache. The patient was seen in our facility yesterday with similar complaints. At that time she did have right earache and was diagnosed with otitis media. She was started on amoxicillin. She states that over the next 24 hours she started developing nausea and vomiting. She is also noticed loose bowel movements. She denies having any abdominal pain. She denies having any GI bleeding. She did not see her family physician for the symptoms but called 911. Prior to arrival she was found to be in SVT. At that time she was given adenosine. This broke her SVT to sinus tachycardia. She states that she did feel somewhat better with her palpitations but denies having any improvement of her breathing. She is not had any Covid testing in the past. She has not noticed any fevers. ROS: See above HPI for pertinent positives & negatives. A total of 10 systems reviewed and were otherwise negative. PAST MEDICAL HISTORY: See Below PAST SURGICAL HISTORY: See Below FAMILY HISTORY: See Below SOCIAL HISTORY: See Below HOME MEDICATIONS: See Below ALLERGIES: See Below VITALS: See Below PHYSICAL EXAMINATION: GENERAL: Patient is awake alert in no acute distress patient is resting com fortably and showing no signs of anxiety EYES: The conjunctivae are clear. The pupils are round and reactive. EARS, NOSE, MOUTH AND THROAT: The nose is without any evidence of any deformity. Mucous membranes are moist. Right tympanic membrane was erythematous in nature. Left tympanic membrane was normal. NECK: The neck is nontender and supple. RESPIRATORY: Normal respiratory effort is noted there is no evidence of wheezing rhonchi or rales CARDIOVASCULAR: Tachycardic rate with regular rhythm was noted. No definite murmur was identified. GASTROINTESTINAL: The abdomen is soft. Abdomen is nontender. MUSCULOSKELETAL/EXTREMITIES: There is no evidence of gross deformity full range of motion is noted in the hips and shoulders. SKIN: Bilateral lower extremity edema was noted. Skin was warm and dry. NEUROLOGIC: Patient is awake alert and oriented x3 strength is symmetric patellar reflexes are 2+ bilaterally MEDICAL DECISION MAKING: The patient is a 54-year-old female who presented to the emergency department by ambulance. The patient was treated with adenosine prior to arrival for an SVT. She was found to be in sinus tachycardia upon arrival. The patient was treated with IV fluids. She was concerned that she was dehydrated because she been having diarrhea and vomiting. She was found to have elevated blood pressure as well as signs of possible pulmonary edema. The patient states that she has been compliant with her outpatient medication regimen. I discussed the patient's laboratory and radiographic studies with her. She was found to be Covid negative. Because of her ongoing symptoms she was also given on dose of Lasix and I [facility]. They have agreed to evaluate the patient in the emergency department for further management and disposition. Triage Nursing notes reviewed. Prior medical records reviewed Vital Signs: reviewed and remarkable for elevated blood pressure, tachycardia, tachypnea. Differential diagnosis: Premature contractions, electrolyte abnormality, cardiac dysrhythmia, thyroid dysfunction, pulmonary embolism, infection, gastrointestinal, as well as other pathologies. ER treatment provided: See below Diagnostics interpreted by me: ECG: EKG was obtained in the emergency department. My interpretation as sinus tachycardia at 130 bpm. Poor R wave progression was noted. PVCs were noted. This was compared to a tracing from October 312019. There was an increase in the rate however no other significant changes were noted. Cardiac Monitoring: An order was placed for continuous cardiac monitoring. The monitor shows a rate of 120 bpm with sinus tachycardia rhythm. Laboratory studies: As stated above and show below. Imaging studies: See below Consultation(s): [id number]: I discussed this case with Amy who is [facility] Past Med/Surg History Medical History (Updated 02/23/20 @ 20:03 by Grover Fontaine DO) Antiphospholipid antibody syndrome Chronic combined systolic and diastolic CHF (congestive heart failure) Chronic venous insufficiency CKD (chronic kidney disease), stage III Depression Diabetes DVT (deep venous thrombosis) GERD (gastroesophageal reflux disease) [place] filter in place History of idiopathic thrombocytopenic purpura History of pulmonary embolism HTN (hypertension) Hypercoagulable state "protein C deficiency, positive phospholipid AB syndrome, positive lupus 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" 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 Lupus 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 positive Ovarian cyst Pancytopenia Protein C deficiency Protein S deficiency Pulmonary embolism Systemic lupus erythematosus Venous stasis ulcers of both lower extremities Surgical History (Updated 02/23/20 @ 17:04 by Deepika Wang PA-C) H/O exploratory laparotomy H/O hernia repair H/O tooth extraction History of dilatation and curettage History of inferior vena caval filter placement S/P appendectomy S/P section S/P cholecystectomy S/P hysterectomy Family History Mother Colorectal cancer Pulmonary embolism Grandfather Cancer Social History Smoking Status: Never smoker Hx Alcohol Use: No Hx Substance Use: No Preferred Language: Malawian Communication Ability: Effective Test Designer Required: No Beliefs That Will Affect Care: None marital status: Single Current Living Situation: Other Current Living Situation Comment: friends Feels Safe at Home: Yes Assistive Devices: None Allergies Allergies Allergy/AdvReac Type Severity Reaction Status Date / Time heparin Allergy Severe HIT R/O Verified 02/23/20 14:52 from last hospital admission - rather was dx w/ ITP vancomycin Allergy Intermediate RASH Verified 02/23/20 14:52 doxycycline Allergy Mild Rash Verified 02/23/20 14:52 polymyxin B Allergy Mild Rash Verified 02/23/20 14:52 Pork/Porcine Containing Allergy Mild Rash Verified 02/23/20 14:52 Products tetracycline Allergy Mild RASH, Verified 02/23/20 14:52 PRURITIS amlodipine Allergy Unknown Unknown Verified 02/23/20 14:52 bacitracin Allergy Unknown Unknown Verified 02/23/20 14:52 Home Meds Home Medications Medication Instructions Recorded Confirmed acetaminophen 500 mg tablet 1,000 mg PO Q8H PRN tab 01/05/18 02/23/20 apixaban 5 mg tablet 5 mg PO BID tab 01/05/18 02/23/20 belimumab 400 mg intravenous 1,200 mg IV UD ea 01/05/18 02/23/20 solution calcium carbonate 500 mg (1,250 1 tab PO QAM tab 01/05/18 02/23/20 mg)-vitamin D3 200 unit tablet calcium carbonate 500 mg calcium 1,000 mg PO QAM tab 01/05/18 02/23/20 (1,250 mg) chewable tablet diphenhydramine HCl 25 mg tablet 25 mg PO Q6H PRN tab 01/05/18 02/23/20 fluticasone propionate 50 2 sprays INTNAS BID gm 01/05/18 02/23/20 mcg/actuation nasal spray,suspension folic acid 1 mg tablet 1 mg PO QAM 01/05/18 02/23/20 hydroxychloroquine 200 mg tablet 400 mg PO PM tab 01/05/18 02/23/20 multivitamin with minerals 1 cap PO QAM cap 01/05/18 02/23/20 prednisone 5 mg tablet 5 mg PO QAM 01/05/18 02/23/20 sertraline 100 mg tablet 100 mg PO QAM 01/05/18 02/23/20 sodium chloride 0.65 % nasal spray 2 sprays INTNAS QPM ml 01/05/18 02/23/20 aerosol trazodone 50 mg tablet 100 mg PO HS tab 01/05/18 02/23/20 losartan 100 mg PO QAM 12/11/18 02/23/20 furosemide 20 mg PO QAM 03/24/19 02/23/20 metoprolol succinate 25 mg PO QAM 03/24/19 02/23/20 Previous Rx's Medication Instructions Recorded amoxicillin-pot clavulanate 1 tab PO BID #20 tab 02/22/20 [Augmentin] Results & Data (ED) Vital Signs Vital Signs - 24 hr 02/23/20 13:31 02/23/20 13:54 02/23/20 14:50 Temperature 36.7 C Temperature Source Oral Pulse Rate 125 H 147 H Pulse Rate [Apical] Pulse Rate from SpO2 Sensor 147 H Pulse Rhythm [Apical] Pulse Strength [Apical] Respiratory Rate 22 22 Respiratory Depth Respiratory Pattern Blood Pressure 183/109 H Blood Pressure [Left Arm] Blood Pressure Mean 133 Blood Pressure Mean [Left Arm] Pulse Oximetry 97 97 97 Oxygen Delivery Method Room Air Room Air Sepsis Recent Fever Within 48 Hours No Sepsis New/Unexplained Change in Mental Status No Sepsis Action Taken by Nursing Physician Notified 02/23/20 14:54 02/23/20 15:45 02/23/20 17:00 Temperature Temperature Source Pulse Rate 111 H 116 H Pulse Rate [Apical] Pulse Rate from SpO2 Sensor 111 H 115 H Pulse Rhythm [Apical] Pulse Strength [Apical] Respiratory Rate 25 H 26 H Respiratory Depth Respiratory Pattern Blood Pressure 113/83 184/101 H Blood Pressure [Left Arm] 140/99 Blood Pressure Mean 93 152 Blood Pressure Mean [Left Arm] 112 Pulse Oximetry 97 98 Oxygen Delivery Method Sepsis Recent Fever Within 48 Hours Sepsis New/Unexplained Change in Mental Status Sepsis Action Taken by Nursing 02/23/20 17:01 02/23/20 17:30 02/23/20 17:31 Temperature Temperature Source Pulse Rate 110 H 108 H Pulse Rate [Apical] 114 H Pulse Rate from SpO2 Sensor 110 H 107 H Pulse Rhythm [Apical] Regular Pulse Strength [Apical] Normal Respiratory Rate 24 25 H 19 Respiratory Depth Normal Respiratory Pattern Tachypnea Blood Pressure 210/111 H Blood Pressure [Left Arm] 184/101 H Blood Pressure Mean 133 Blood Pressure Mean [Left Arm] 128 Pulse Oximetry 98 96 97 Oxygen Delivery Method Room Air Sepsis Recent Fever Within 48 Hours Sepsis New/Unexplained Change in Mental Status Sepsis Action Taken by Nursing 02/23/20 18:00 02/23/20 19:01 Temperature Temperature Source Pulse Rate 120 H Pulse Rate [Apical] Pulse Rate from SpO2 Sensor 115 H 120 H Pulse Rhythm [Apical] Pulse Strength [Apical] Respiratory Rate 24 27 H Respiratory Depth Respiratory Pattern Blood Pressure 201/103 H 225/102 H Blood Pressure [Left Arm] Blood Pressure Mean 120 149 Blood Pressure Mean [Left Arm] Pulse Oximetry 96 97 Oxygen Delivery Method Sepsis Recent Fever Within 48 Hours Sepsis New/Unexplained Change in Mental Status Sepsis Action Taken by Halfway Medications Current Medication List: was personally reviewed by me Laboratory Data Attestation: I reviewed the patient's lab results. Result diagrams: 02/23/20 13:30 02/23/20 13:30 Lab Results 02/23/20 02/23/20 02/23/20 Range/Units 13:30 13:30 13:30 WBC 8.60 (4.8-10.8) K/uL RBC 4.42 (4.2-5.4) M/uL Hgb 11.5 L (12.0-16.0) g/dL Hct 37.3 (37-47) % MCV 84.4 (80-100) fL MCH 26.0 (25-34) pg MCHC 30.8 L (32-36) g/dL RDW Std Deviation 48.3 H (36.4-46.3) fL RDW Coeff of Eduardo 15.8 H (11.5-14.5) % Plt Count 323 (130-400) K/uL MPV 9.3 (7.4-10.4) fL Immature Gran % (Auto) 0.9 % Neut % (Auto) 76.5 % Lymph % (Auto) 13.4 % [place] % (Auto) 8.7 % Eos % (Auto) 0.3 % Baso % (Auto) 0.2 % Neut # (Auto) 6.57 H (1.4-6.5) K/uL Lymph # (Auto) 1.15 L (1.2-3.4) K/uL [place] # (Auto) 0.75 H (0.11-0.59) K/uL Eos # (Auto) 0.03 (0-0.5) K/uL Baso # (Auto) 0.02 (0-0.2) K/uL Immature Gran # (Auto) 0.08 H (0.00-0.02) K/uL Absolute Nucleated RBC 0.02 H (0-0) K/uL Nucleated RBC % (auto) 0.2 % PT 11.1 (9.0-12.0) Seconds INR 1.1 (0.9-1.1) APTT 31.7 H (21.0-31.0) Seconds PTT Ratio 1.1 Sodium 142 (136-145) mmol/L Potassium 3.8 (3.5-5.1) mmol/L Chloride 113 H (98-107) mmol/L Carbon Dioxide 21 (21-32) mmol/L Anion Gap 8.0 (3-11) BUN 10 (7-18) mg/dl Creatinine 1.09 (0.6-1.2) mg/dl Est Cr Clr Drug Dosing 92.6 ml/min Est GFR ( Amer) 67.6 Est GFR (Non-Af Amer) 58.3 BUN/Creatinine Ratio 9.4 L (10-20) Glucose 114 H (70-99) mg/dl Calcium 9.1 (8.5-10.1) mg/dl Magnesium 2.0 (1.8-2.4) mg/dl Total Bilirubin 0.4 (0.2-1) mg/dl AST 26 (15-37) U/L ALT 30 (12-78) U/L Alkaline Phosphatase 80 (45-117) U/L Troponin I 0.070 H* (0-0.045) ng/ml NT-Pro-B Natriuret Pep (0-900) pg/ml Total Protein 7.6 (6.4-8.2) gm/dl Albumin 3.5 (3.4-5.0) gm/dl Globulin 4.1 H (2.5-4.0) gm/dl Albumin/Globulin Ratio 0.9 (0.9-2) TSH 1.540 (0.300-4.500) uIu/ml Urine Color Urine Appearance (Clear) Urine pH (4.5-7.5) Ur Specific [place] (1.000-1.030) Urine Protein (Negative) Urine Glucose (UA) (Negative) Urine Ketones (Negative) Urine Blood (Negative) Urine Nitrite (Negative) Urine Bilirubin (Negative) Urine Urobilinogen (Negative) Ur Leukocyte Esterase (Negative) Urine WBC (Auto) (0-5) /hpf Urine RBC (Auto) (0-4) /hpf U Hyaline Cast (Auto) (0-5) /lpf U Epithel Cells (Auto) (0-5) /lpf Urine Bacteria (Auto) (Negative) COVID-19 Eval Order COVID-19 PCR (Negative) Nasopharyn COVID-19 PCR 02/23/20 02/23/20 02/23/20 Range/Units 13:30 14:20 14:20 WBC (4.8-10.8) K/uL RBC (4.2-5.4) M/uL Hgb (12.0-16.0) g/dL Hct (37-47) % MCV (80-100) fL MCH (25-34) pg MCHC (32-36) g/dL RDW Std Deviation (36.4-46.3) fL RDW Coeff of Eduardo (11.5-14.5) % Plt Count (130-400) K/uL MPV (7.4-10.4) fL Immature Gran % (Auto) % Neut % (Auto) % Lymph % (Auto) % [place] % (Auto) % Eos % (Auto) % Baso % (Auto) % Neut # (Auto) (1.4-6.5) K/uL Lymph # (Auto) (1.2-3.4) K/uL [place] # (Auto) (0.11-0.59) K/uL Eos # (Auto) (0-0.5) K/uL Baso # (Auto) (0-0.2) K/uL Immature Gran # (Auto) (0.00-0.02) K/uL Absolute Nucleated RBC (0-0) K/uL Nucleated RBC % (auto) % PT (9.0-12.0) Seconds INR (0.9-1.1) APTT (21.0-31.0) Seconds PTT Ratio Sodium (136-145) mmol/L Potassium (3.5-5.1) mmol/L Chloride (98-107) mmol/L Carbon Dioxide (21-32) mmol/L Anion Gap (3-11) BUN (7-18) mg/dl Creatinine (0.6-1.2) mg/dl Est Cr Clr Drug Dosing ml/min Est GFR ( Amer) Est GFR (Non-Af Amer) BUN/Creatinine Ratio (10-20) Glucose (70-99) mg/dl Calcium (8.5-10.1) mg/dl Magnesium (1.8-2.4) mg/dl Total Bilirubin (0.2-1) mg/dl AST (15-37) U/L ALT (12-78) U/L Alkaline Phosphatase (45-117) U/L Troponin I (0-0.045) ng/ml NT-Pro-B Natriuret Pep 2934 H (0-900) pg/ml Total Protein (6.4-8.2) gm/dl Albumin (3.4-5.0) gm/dl Globulin (2.5-4.0) gm/dl Albumin/Globulin Ratio (0.9-2) TSH (0.300-4.500) uIu/ml Urine Color Urine Appearance (Clear) Urine pH (4.5-7.5) Ur Specific [place] (1.000-1.030) Urine Protein (Negative) Urine Glucose (UA) (Negative) Urine Ketones (Negative) Urine Blood (Negative) Urine Nitrite (Negative) Urine Bilirubin (Negative) Urine Urobilinogen (Negative) Ur Leukocyte Esterase (Negative) Urine WBC (Auto) (0-5) /hpf Urine RBC (Auto) (0-4) /hpf U Hyaline Cast (Auto) (0-5) /lpf U Epithel Cells (Auto) (0-5) /lpf Urine Bacteria (Auto) (Negative) COVID-19 Eval Order Covid19 Sent to [facility] COVID-19 PCR (Negative) Nasopharyn COVID-19 PCR Cancelled 02/23/20 02/23/20 02/23/20 Range/Units 14:20 14:20 17:19 WBC (4.8-10.8) K/uL RBC (4.2-5.4) M/uL Hgb (12.0-16.0) g/dL Hct (37-47) % MCV (80-100) fL MCH (25-34) pg MCHC (32-36) g/dL RDW Std Deviation (36.4-46.3) fL RDW Coeff of Eduardo (11.5-14.5) % Plt Count (130-400) K/uL MPV (7.4-10.4) fL Immature Gran % (Auto) % Neut % (Auto) % Lymph % (Auto) % [place] % (Auto) % Eos % (Auto) % Baso % (Auto) % Neut # (Auto) (1.4-6.5) K/uL Lymph # (Auto) (1.2-3.4) K/uL [place] # (Auto) (0.11-0.59) K/uL Eos # (Auto) (0-0.5) K/uL Baso # (Auto) (0-0.2) K/uL Immature Gran # (Auto) (0.00-0.02) K/uL Absolute Nucleated RBC (0-0) K/uL Nucleated RBC % (auto) % PT (9.0-12.0) Seconds INR (0.9-1.1) APTT (21.0-31.0) Seconds PTT Ratio Sodium (136-145) mmol/L Potassium (3.5-5.1) mmol/L Chloride (98-107) mmol/L Carbon Dioxide (21-32) mmol/L Anion Gap (3-11) BUN (7-18) mg/dl Creatinine (0.6-1.2) mg/dl Est Cr Clr Drug Dosing ml/min Est GFR ( Amer) Est GFR (Non-Af Amer) BUN/Creatinine Ratio (10-20) Glucose (70-99) mg/dl Calcium (8.5-10.1) mg/dl Magnesium (1.8-2.4) mg/dl Total Bilirubin (0.2-1) mg/dl AST (15-37) U/L ALT (12-78) U/L Alkaline Phosphatase (45-117) U/L Troponin I (0-0.045) ng/ml NT-Pro-B Natriuret Pep (0-900) pg/ml Total Protein (6.4-8.2) gm/dl Albumin (3.4-5.0) gm/dl Globulin (2.5-4.0) gm/dl Albumin/Globulin Ratio (0.9-2) TSH (0.300-4.500) uIu/ml Urine Color Yellow Urine Appearance Clear (Clear) Urine pH 5.0 (4.5-7.5) Ur Specific [place] 1.015 (1.000-1.030) Urine Protein Negative (Negative) Urine Glucose (UA) Negative (Negative) Urine Ketones Negative (Negative) Urine Blood Trace H (Negative) Urine Nitrite Negative (Negative) Urine Bilirubin Negative (Negative) Urine Urobilinogen Negative (Negative) Ur Leukocyte Esterase Trace H (Negative) Urine WBC (Auto) 5-10 H (0-5) /hpf Urine RBC (Auto) 0-4 (0-4) /hpf U Hyaline Cast (Auto) 1-5 (0-5) /lpf U Epithel Cells (Auto) 10-20 H (0-5) /lpf Urine Bacteria (Auto) Negative (Negative) COVID-19 Eval Order Covid19 Done at [facility] COVID-19 PCR NEGATIVE (Negative) Nasopharyn COVID-19 PCR Administered Medications Discontinued Medications Furosemide (Furosemide 40 Mg/4 Ml Vial) 40 mg IV NOW STA Stop: 02/23/20 16:40 Last Admin: 02/23/20 16:56 Dose: 40 mg Documented by: [id number] Sodium Chloride (Nss 1000ml) 1,000 mls @ 999 mls/hr IV .Q1H1M ART Stop: 02/23/20 15:00 Last Infusion: 02/23/20 15:42 Dose: 0 mls/hr Documented by: [id number] Admin: 02/23/20 14:34 Dose: 999 mls/hr Documented by: [id number] Imaging Data Radiologist's Impression: Patient: DISHA CHURCH Date: 02/23/20 MR#: [id number]: [id number] CLARISA LARIOS Acct ID:[id number]: Date: 1965[facility] Zip: [place] [address] Age: 54Location: ED Sex: FRoom/Bed: Att Phy:Diagnosis: svt [place]a Phy: Deborah MuñozKendy, DOService Date: 02/23/20 [facility] Phy:Interpreting Phy: Tristan Andrew Admit Phy: Ordering Phy: Grover Fontaine DO cc: ~ KUB HISTORY: Acute abdominal pain with diarrhea diarrhea COMPARISON: CT abdomen and pelvis 01/02/2014. FINDINGS: Nonobstructive bowel gas pattern. IVC filter noted at the level of L2- L3. Right lateral abdomen is excluded from the [id number]. No renal calculi. No ureteral calculi. No pneumoperitoneum or pneumatosis. No fracture. IMPRESSION: Nonobstructive bowel gas pattern. ACT 112: Negative or not required by law. The above report was generated using voice recognition software. It may contain grammatical, syntax or spelling errors. Electronically signed by: Osito Andrew M.D. 02/23/2020 3:29 PM Dictated: 02/23/20 1528 Transcribed: 02/23/20 1528 Patient: DISHA CHURCH Date: 02/23/20 MR#: [id number]: [id number] CLARISA LARIOS Acct ID:[id number]: Date: 1965[facility] Zip: [place] [address] Age: 54Location: ED Sex: FRoom/Bed: Att Phy:Diagnosis: svt [place]a Phy: HarininithyaNikole zuritaghazala Montes De Oca, DOService Date: 02/23/20 Fam Phy:Interpreting Phy: Gama Alexander MD Admit Phy: Ordering Phy: Grover Fontaine DO cc: ~ XR chest 1V portable CLINICAL HISTORY: weakness COMPARISON STUDY: Chest CT December 11, 2018. Chest radiograph December 13, 2018. FINDINGS: Lung volumes are at the lower limits of normal. There is no pneumothorax. Interstitial thickening and mild bilateral opacities are noted. Cardiomegaly is present. This is unchanged. There are trace bilateral pleural effusions. IMPRESSION: 1. Interstitial thickening and hazy bilateral opacities. The findings may reflect pulmonary edema or an infectious process. Trace bilateral pleural effusions. Radiographic follow-up is recommended. 2. Stable cardiomegaly. ACT 112: Negative or not required by law. Electronically signed by: Gama Alexander M.D. 02/23/2020 3:39 PM Dictated: 02/23/20 153 Transcribed: 02/23/201536 Blood Pressure Blood Pressure Findings: Elevated blood pressure Blood Pressure Disposition: further management by hospitalist Discharge Plan Visit Data Chief Complaint: Illness Stated Complaint: svt ED Provider: Grover Fontaine Discharge Problem: Weakness, Pulmonary edema, SVT (supraventricular tachycardia), Elevated troponin I level Patient Disposition: Admitted As Inpatient Condition: Good Discharge Instructions Interventions: ED Discharge Assessment Last Done: 02/23/20 19:30 Forms Stand Alone Forms: [facility] [employer] Prescriptions Prescriptions: No Action acetaminophen [Tylenol Extra Strength] 500 mg tablet 1,000 mg PO Q8H PRN (Reason: Pain) RF: 0 apixaban [Eliquis] 5 mg tablet 5 mg PO BID RF: 0 belimumab [Benlysta] 400 mg recon soln 1,200 mg IV UD RF: 0 calcium carbonate [Calcium 500] 500 mg calcium (1,250 mg) tablet,chewable 1,000 mg PO QAM RF: 0 calcium carbonate-vitamin D3 [Os-Marco A 500 + D3] 500 mg(1,250mg) -200 unit tablet 1 tab PO QAM RF: 0 diphenhydramine HCl [Allergy (diphenhydramine)] 25 mg tablet 25 mg PO Q6H PRN (Reason: itching) RF: 0 fluticasone propionate [Flonase Allergy Relief] 50 mcg/actuation spray,suspension 2 sprays INTNAS BID RF: 0 folic acid 1 mg tablet 1 mg PO QAM RF: 0 hydroxychloroquine [Plaquenil] 200 mg tablet 400 mg PO PM RF: 0 multivitamin with minerals capsule 1 cap PO QAM RF: 0 prednisone 5 mg tablet 5 mg PO QAM RF: 0 sodium chloride [Saline Nasal] 0.65 % aerosol,spray 2 sprays INTNAS QPM RF: 0 sertraline [Zoloft] 100 mg tablet 100 mg PO QAM RF: 0 trazodone 50 mg tablet 100 mg PO HS RF: 0 losartan 100 mg Tablet 100 mg PO QAM RF: 0 furosemide 20 mg tablet 20 mg PO QAM RF: 0 metoprolol succinate 25 mg tablet extended release 24 hr 25 mg PO QAM RF: 0 amoxicillin-pot clavulanate [Augmentin] 875-125 mg tablet 1 tab PO BID Qty: 20 RF: 0 Referrals Referrals: Deborah Muñoz DO [Primary Care Provider] -
[2020-02-23 14:31] LABS: INR 1.1 (0.9-1.1); Partial Thromboplastin Ratio 1.1; Partial Thromboplastin Time 31.7 Seconds (21.0-31.0); Prothrombin Time 11.1 Seconds (9.0-12.0)
[2020-02-23 14:35] LABS: Albumin Globulin Ratio 0.9 (0.9-2); Bilirubin,Total 0.4 mg/dl (0.2-1); Globulin 4.1 gm/dl (2.5-4.0); Thyroid Stimulating Hormone 1.54 uIu/ml (0.300-4.500); Total Protein 7.6 gm/dl (6.4-8.2); Troponin I 0.07 ng/ml (0-0.045)
--- NOTE | 2020-02-23 15:30 | XRay Report ---
KUB HISTORY: Acute abdominal pain with diarrhea diarrhea COMPARISON: CT abdomen and pelvis 01/02/2014. FINDINGS: Nonobstructive bowel gas pattern. IVC filter noted at the level of L2-L3. Right lateral abd omen is excluded from the [id number]. No renal calculi. No ureteral calculi. No pneumoperitoneum or pneumatosis. No fracture. IMPRESSION: Nonobstructive bowel gas pattern. ACT 112: Negative or not required by law. The above report was generated using voice recognition software. It may contain grammatical, syntax o r spelling errors. Electronically signed by: Osito Andrew M.D. 02/23/2020 3:29 PM
--- NOTE | 2020-02-23 15:40 | XRay Report ---
XR chest 1V portable CLINICAL HISTORY: weakness COMPARISON STUDY: Chest CT December 11, 2018. Chest radiograph December 13, 2018. FINDINGS: Lung volumes are at the lower limits of normal. There is no pneumothorax. Interstitial thic kening and mild bilateral opacities are noted. Cardiomegaly is present. This is unchanged. There are trace bilateral pleural effusions. IMPRESSION: 1. Interstitial thickening and hazy bilateral opacities. The findings may reflect pulmonary edema or an infectious process. Trace bilateral pleural effusions. Radiographic follow-up is recommended. 2. Stable cardiomegaly. ACT 112: Negative or not required by law. Electronically signed by: Gama Alexander M.D. 02/23/2020 3:39 PM
[2020-02-23] MEDS ORDERED: FUROSEMIDE 40 MG/4 ML VIAL IV STA (16:39)
[2020-02-23 17:34] LABS: Appearance Urine Clear (Clear); Bacteria Urine Automated Negative (Negative); Bilirubin Urine Negative (Negative); Blood Urine Trace (Negative); Color Urine Yellow; Glucose Urine UA Negative (Negative); Ketones Urine Negative (Negative); Leukocyte Esterase Urine Trace (Negative); Nitrite Urine Negative (Negative); Protein Urine Negative (Negative); Specific Gravity Urine 1.015 (1.000-1.030); Urobilinogen Urine Negative (Negative)
[2020-02-23 18:31] LABS: RBC Urine Automated 0-4 /hpf (0-4)
--- NOTE | 2020-02-23 18:57 | History & Physical Report ---
Date of Service February 23, 2020 History of Present Illness Primary Care Provider: Deborah Muñoz DO Allergies Allergy/AdvReac Type Severity Reaction Status Date / Time heparin Allergy Severe HIT R/O Verified 02/23/20 14:52 from last hospital admission - rather was dx w/ ITP vancomycin Allergy Intermediate RASH Verified 02/23/20 14:52 doxycycline Allergy Mild Rash Verified 02/23/20 14:52 polymyxin B Allergy Mild Rash Verified 02/23/20 14:52 Pork/Porcine Containing Allergy Mild Rash Verified 02/23/20 14:52 Products tetracycline Allergy Mild RASH, Verified 02/23/20 14:52 PRURITIS amlodipine Allergy Unknown Unknown Verified 02/23/20 14:52 bacitracin Allergy Unknown Unknown Verified 02/23/20 14:52 Home Medications Home Medications Medication Instructions Recorded Confirmed Type acetaminophen 500 mg tablet 1,000 mg PO Q8H PRN tab 01/05/18 02/23/20 History apixaban 5 mg tablet 5 mg PO BID tab 01/05/18 02/23/20 History belimumab 400 mg intravenous 1,200 mg IV UD ea 01/05/18 02/23/20 History solution calcium carbonate 500 mg (1,250 1 tab PO QAM tab 01/05/18 02/23/20 History mg)-vitamin D3 200 unit tablet calcium carbonate 500 mg calcium 1,000 mg PO QAM tab 01/05/18 02/23/20 History (1,250 mg) chewable tablet diphenhydramine HCl 25 mg tablet 25 mg PO Q6H PRN tab 01/05/18 02/23/20 History fluticasone propionate 50 2 sprays INTNAS BID gm 01/05/18 02/23/20 History mcg/actuation nasal spray,suspension folic acid 1 mg tablet 1 mg PO QAM 01/05/18 02/23/20 History hydroxychloroquine 200 mg tablet 400 mg PO PM tab 01/05/18 02/23/20 History multivitamin with minerals 1 cap PO QAM cap 01/05/18 02/23/20 History prednisone 5 mg tablet 5 mg PO QAM 01/05/18 02/23/20 History sertraline 100 mg tablet 100 mg PO QAM 01/05/18 02/23/20 History sodium chloride 0.65 % nasal spray 2 sprays INTNAS QPM ml 01/05/18 02/23/20 History aerosol trazodone 50 mg tablet 100 mg PO HS tab 01/05/18 02/23/20 History losartan 100 mg PO QAM 12/11/18 02/23/20 History furosemide 20 mg PO QAM 03/24/19 02/23/20 History metoprolol succinate 25 mg PO QAM 03/24/19 02/23/20 History amoxicillin-pot clavulanate 1 tab PO BID #20 tab 02/22/20 02/23/20 Rx [Augmentin] Past Med/Surg History Medical History (Updated 02/23/20 @ 17:24 by Deepika Wang PA-C) Antiphospholipid antibody syndrome Chronic combined systolic and diastolic CHF (congestive heart failure) Chronic venous insufficiency CKD (chronic kidney disease), stage III Depression Diabetes DVT (deep venous thrombosis) GERD (gastroesophageal reflux disease) [place] filter in place History of idiopathic thrombocytopenic purpura History of pulmonary embolism HTN (hypertension) Hypercoagulable state "protein C deficiency, positive phospholipid AB syndrome, positive lupus 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" 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 Lupus 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 positive Ovarian cyst Pancytopenia Protein C deficiency Protein S deficiency Pulmonary embolism Systemic lupus erythematosus Venous stasis ulcers of both lower extremities Surgical History (Updated 02/23/20 @ 17:04 by Deepika Wang PA-C) H/O exploratory laparotomy H/O hernia repair H/O tooth extraction History of dilatation and curettage History of inferior vena caval filter placement S/P appendectomy S/P section S/P cholecystectomy S/P hysterectomy Family History Mother Colorectal cancer Pulmonary embolism Grandfather Cancer Social History Smoking Status: Never smoker Hx Alcohol Use: No Hx Substance Use: No Preferred Language: [place] Communication Ability: Effective Quality Lab Technician Required: No Beliefs That Will Affect Care: None marital status: Single Current Living Situation: Other Current Living Situation Comment: friends Feels Safe at Home: Yes Assistive Devices: None Results & Data Results & Data ([place]) Vital Signs (Past 12 Hours) Vital Signs Temp Pulse Pulse Resp BP BP Pulse Ox 02/23/20 18:00 24 201/103 H 96 02/23/20 17:31 108 H 19 210/111 H 97 02/23/20 17:30 110 H 25 H 96 02/23/20 17:01 114 H 24 184/101 H 98 02/23/20 17:00 116 H 26 H 184/101 H 98 02/23/20 15:45 111 H 25 H 113/83 97 02/23/20 14:54 140/99 02/23/20 14:50 147 H 22 97 02/23/20 13:54 97 02/23/20 13:31 36.7 C 125 H 22 183/109 H 97 Code Status & VTE Plan VTE Prophylaxis Plan VTE Prophylaxis will be ordered: Yes
--- NOTE | 2020-02-23 19:42 | History & Physical Report ---
Date of Service February 23, 2020 Assessment & Plan (1) Chronic combined systolic and diastolic CHF (congestive heart failure): History of combined systolic and diastolic left ventricular heart failure. Chest x-ray and elevated pro-BNP consistent with CHF = acute on chronic combined systolic and diastolic left ventricular heart failure. Received IV furosemide in ED. Check f/u echo. Management of CHF per protocol. Continue losartan and metoprolol succinate. Titrate diuretics. (2) SVT (supraventricular tachycardia): Experienced palpitations today. Found to be in SVT when EMS arrived. Receiving adenosine and converted to NSR. K, Mg, TSH, and O2 sats OK. Increase metoprolol succinate to 25 mg BID. Continue cardiac monitoring. (3) Elevated troponin I level: Serum troponin 0.07. Elevated troponin could be secondary to SVT or CHF. Follow serial determinations. (4) History of pulmonary embolism: History of VTE. Underlying protein C deficiency, protein S deficiency, lupus 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. Continue apixaban. (5) HTN (hypertension): Continue losartan. Increase metoprolol succinate to 25 mg BID in light of SVT + elevated BP's. (6) Systemic lupus erythematosus: Continue prednisone and hydroxychloroquine. (7) COVID-19 ruled out: SARS-CoV-2 PCR checked because of respiratory symptoms and abnormal chest x-ray. Assay was negative in ED. (8) Venous stasis ulcers of both lower extremities: Followed by Wound Clinic. Due for new Unna boots. Consult Wound Care Nursing. (9) Infection of wound due to methicillin resistant Staphylococcus aureus (MRSA): Contact precautions. (10) Morbid obesity: Wt 148 kg. BMI 52.9. Heart healthy diet. (11) DVT prophylaxis: Continue apixaban. (12) Discharge planning issues: Anticipated discharge to home. Family Medicine follow-up with Dr. Muñoz. History of Present Illness Chief Complaint: weakness, nausea, vomiting Primary Care Provider: Deborah Muñoz, 54 YO female followed by Dr. Muñoz for Family Medicine. History of CHF, hypertension, VTE, SLE, and other problems as outlined below. Developed pharyngitis about 10 days ago. Progressive malaise. Intermittent headache. Seen in ED yesterday with ear pain and found to have otitis media. Started on amoxicillin / clavulanic acid. [place] worse this morning. Subjective fever and chills. Experienced nausea, vomiting, diarrhea. No hematemesis, melena, hematochezia. Somewhat SOB. Rare cough. Noted palpitations, no chest pain. Summoned EMS. She was found to be in SVT and received IV adenosine with conversion to sinus rhythm. No known exposure to COVID-19. Allergies Allergy/AdvReac Type Severity Reaction Status Date / Time heparin Allergy Severe HIT R/O Verified 02/23/20 14:52 from last hospital admission - rather was dx w/ ITP vancomycin Allergy Intermediate RASH Verified 02/23/20 14:52 doxycycline Allergy Mild Rash Verified 02/23/20 14:52 polymyxin B Allergy Mild Rash Verified 02/23/20 14:52 Pork/Porcine Containing Allergy Mild Rash Verified 02/23/20 14:52 Products tetracycline Allergy Mild RASH, Verified 02/23/20 14:52 PRURITIS amlodipine Allergy Unknown Unknown Verified 02/23/20 14:52 bacitracin Allergy Unknown Unknown Verified 02/23/20 14:52 Home Medications Home Medications Medication Instructions Recorded Confirmed Type acetaminophen 500 mg tablet 1,000 mg PO Q8H PRN tab 01/05/18 02/23/20 History apixaban 5 mg tablet 5 mg PO BID tab 01/05/18 02/23/20 History belimumab 400 mg intravenous 1,200 mg IV UD ea 01/05/18 02/23/20 History solution calcium carbonate 500 mg (1,250 1 tab PO QAM tab 01/05/18 02/23/20 History mg)-vitamin D3 200 unit tablet calcium carbonate 500 mg calcium 1,000 mg PO QAM tab 01/05/18 02/23/20 History (1,250 mg) chewable tablet diphenhydramine HCl 25 mg tablet 25 mg PO Q6H PRN tab 01/05/18 02/23/20 History fluticasone propionate 50 2 sprays INTNAS BID gm 01/05/18 02/23/20 History mcg/actuation nasal spray,suspension folic acid 1 mg tablet 1 mg PO QAM 01/05/18 02/23/20 History hydroxychloroquine 200 mg tablet 400 mg PO PM tab 01/05/18 02/23/20 History multivitamin with minerals 1 cap PO QAM cap 01/05/18 02/23/20 History prednisone 5 mg tablet 5 mg PO QAM 01/05/18 02/23/20 History sertraline 100 mg tablet 100 mg PO QAM 01/05/18 02/23/20 History sodium chloride 0.65 % nasal spray 2 sprays INTNAS QPM ml 01/05/18 02/23/20 History aerosol trazodone 50 mg tablet 100 mg PO HS tab 01/05/18 02/23/20 History losartan 100 mg PO QAM 12/11/18 02/23/20 History furosemide 20 mg PO QAM 03/24/19 02/23/20 History metoprolol succinate 25 mg PO QAM 03/24/19 02/23/20 History amoxicillin-pot clavulanate 1 tab PO BID #20 tab 02/22/20 02/23/20 Rx [Augmentin] Past Med/Surg History Medical History Antiphospholipid antibody syndrome Chronic combined systolic and diastolic CHF (congestive heart failure) Chronic venous insufficiency CKD (chronic kidney disease), stage III Depression Diabetes DVT (deep venous thrombosis) GERD (gastroesophageal reflux disease) [place] filter in place History of idiopathic thrombocytopenic purpura History of pulmonary embolism HTN (hypertension) Hypercoagulable state "protein C deficiency, positive phospholipid AB syndrome, positive lupus 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" Hyperlipidemia 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 current use of 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 Lupus 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 positive Ovarian cyst Pancytopenia Protein C deficiency Protein S deficiency Pulmonary embolism Systemic lupus erythematosus Venous stasis ulcers of both lower extremities Surgical History H/O exploratory laparotomy H/O hernia repair H/O tooth extraction History of dilatation and curettage History of inferior vena caval filter placement S/P appendectomy S/P section S/P cholecystectomy S/P hysterectomy Family History Mother Colorectal cancer Pulmonary embolism Grandfather Cancer Social History Smoking Status: Never smoker Hx Alcohol Use: No Hx Substance Use: No Preferred Language: Citizen Of [place] Communication Ability: Effective Sweet Dough Mixer Required: No Beliefs That Will Affect Care: None marital status: Single Current Living Situation: Other Current Living Situation Comment: room mate Other Information That Helps Us Care for You: No Feels Safe at Home: Yes Safety Concerns: Feels Safe At This Time Assistive Devices: None Review of Systems Constitutional: as per Subjective / HPI; no weight loss Eyes: no diplopia and no worsening vision Ear, Nose, Mouth, Throat: as per Subjective / HPI Respiratory: as per Subjective / HPI Cardiovascular: as per Subjective / HPI Gastrointestinal: as per Subjective / HPI Genitourinary: no dysuria and no hematuria Musculoskeletal: no joint pain and no myalgia Integumentary: no rash and no new lesions followed by Wound Clinic for venous stasis ulcers of lower extremities Neurologic: + headache(s) (occasional) Endocrine: no polydipsia and no polyuria Hematologic / Lymphatic: + easy bleeding and + easy bruising; no lymphadenopathy Physical Exam Constitutional: + morbidly obese; no acute distress Eyes: PERRL, conjunctivae normal, anicteric sclerae ENMT: external ear and nose normal, oropharynx normal Ears: + TM abnormality (retracted bilat, no erythema) Mouth: + poor dentition Neck: trachea midline, no thyromegaly Respiratory: no respiratory distress Auscultation: + rales Cardiovascular: Rate/Rhythm: regular rate and + tachycardic Heart Sounds: no murmur ((exam limited)) Vessels: no JVD Extremities: normal capillary refill and + edema (2-3+ pretibial); no calf tenderness Gastrointestinal (Abdomen): normal bowel sounds, soft, nontender, no hepatosplenomegaly Musculoskeletal: Head/Neck/Chest: neck supple Extremities: strength 5/5 throughout; no cyanosis and no clubbing Unna boots bilateral lower extremiti es Skin: no rashes, warm and dry Neurologic: PERRL, EOMI no facial palsy no dysarthria or aphasia Psychiatric: Orientation: alert and oriented x 3 Affect: + anxious affect Lymphatic: no cervical lymphadenopathy Results & Data Results & Data ([facility]) Vital Signs (Past 12 Hours) Vital Signs Temp Pulse Pulse Resp BP BP Pulse Ox 02/23/20 19:01 120 H 27 H 225/102 H 97 02/23/20 18:00 24 201/103 H 96 02/23/20 17:31 108 H 19 210/111 H 97 02/23/20 17:30 110 H 25 H 96 02/23/20 17:01 114 H 24 184/101 H 98 02/23/20 17:00 116 H 26 H 184/101 H 98 02/23/20 15:45 111 H 25 H 113/83 97 02/23/20 14:54 140/99 02/23/20 14:50 147 H 22 97 02/23/20 13:54 97 02/23/20 13:31 36.7 C 125 H 22 183/109 H 97 Laboratory Results Laboratory Results - last 24 hr 02/23/20 02/23/20 02/23/20 13:30 13:30 13:30 WBC 8.60 RBC 4.42 Hgb 11.5 L Hct 37.3 MCV 84.4 MCH 26.0 MCHC 30.8 L RDW Std Deviation 48.3 H RDW Coeff of Eduardo 15.8 H Plt Count 323 MPV 9.3 Immature Gran % (Auto) 0.9 Neut % (Auto) 76.5 Lymph % (Auto) 13.4 [place] % (Auto) 8.7 Eos % (Auto) 0.3 Baso % (Auto) 0.2 Neut # (Auto) 6.57 H Lymph # (Auto) 1.15 L [place] # (Auto) 0.75 H Eos # (Auto) 0.03 Baso # (Auto) 0.02 Immature Gran # (Auto) 0.08 H Absolute Nucleated RBC 0.02 H Nucleated RBC % (auto) 0.2 PT 11.1 INR 1.1 APTT 31.7 H PTT Ratio 1.1 Sodium 142 Potassium 3.8 Chloride 113 H Carbon Dioxide 21 Anion Gap 8.0 BUN 10 Creatinine 1.09 Est Cr Clr Drug Dosing 92.6 Est GFR ( Amer) 67.6 Est GFR (Non-Af Amer) 58.3 BUN/Creatinine Ratio 9.4 L Glucose 114 H Calcium 9.1 Magnesium 2.0 Total Bilirubin 0.4 AST 26 ALT 30 Alkaline Phosphatase 80 Troponin I 0.070 H* NT-Pro-B Natriuret Pep Total Protein 7.6 Albumin 3.5 Globulin 4.1 H Albumin/Globulin Ratio 0.9 TSH 1.540 Urine Color Urine Appearance Urine pH Ur Specific [place] Urine Protein Urine Glucose (UA) Urine Ketones Urine Blood Urine Nitrite Urine Bilirubin Urine Urobilinogen Ur Leukocyte Esterase Urine WBC (Auto) Urine RBC (Auto) U Hyaline Cast (Auto) U Epithel Cells (Auto) Urine Bacteria (Auto) COVID-19 Eval Order COVID-19 PCR Nasopharyn COVID-19 PCR 02/23/20 02/23/20 02/23/20 13:30 14:20 14:20 WBC RBC Hgb Hct MCV MCH MCHC RDW Std Deviation RDW Coeff of Eduardo Plt Count MPV Immature Gran % (Auto) Neut % (Auto) Lymph % (Auto) [place] % (Auto) Eos % (Auto) Baso % (Auto) Neut # (Auto) Lymph # (Auto) [place] # (Auto) Eos # (Auto) Baso # (Auto) Immature Gran # (Auto) Absolute Nucleated RBC Nucleated RBC % (auto) PT INR APTT PTT Ratio Sodium Potassium Chloride Carbon Dioxide Anion Gap BUN Creatinine Est Cr Clr Drug Dosing Est GFR ( Amer) Est GFR (Non-Af Amer) BUN/Creatinine Ratio Glucose Calcium Magnesium Total Bilirubin AST ALT Alkaline Phosphatase Troponin I NT-Pro-B Natriuret Pep 2934 H Total Protein Albumin Globulin Albumin/Globulin Ratio TSH Urine Color Urine Appearance Urine pH Ur Specific [place] Urine Protein Urine Glucose (UA) Urine Ketones Urine Blood Urine Nitrite Urine Bilirubin Urine Urobilinogen Ur Leukocyte Esterase Urine WBC (Auto) Urine RBC (Auto) U Hyaline Cast (Auto) U Epithel Cells (Auto) Urine Bacteria (Auto) COVID-19 Eval Order Covid19 Sent to [facility] COVID-19 PCR Nasopharyn COVID-19 PCR Cancelled 02/23/20 02/23/20 02/23/20 14:20 14:20 17:19 WBC RBC Hgb Hct MCV MCH MCHC RDW Std Deviation RDW Coeff of Eduardo Plt Count MPV Immature Gran % (Auto) Neut % (Auto) Lymph % (Auto) [place] % (Auto) Eos % (Auto) Baso % (Auto) Neut # (Auto) Lymph # (Auto) [place] # (Auto) Eos # (Auto) Baso # (Auto) Immature Gran # (Auto) Absolute Nucleated RBC Nucleated RBC % (auto) PT INR APTT PTT Ratio Sodium Potassium Chloride Carbon Dioxide Anion Gap BUN Creatinine Est Cr Clr Drug Dosing Est GFR ( Amer) Est GFR (Non-Af Amer) BUN/Creatinine Ratio Glucose Calcium Magnesium Total Bilirubin AST ALT Alkaline Phosphatase Troponin I NT-Pro-B Natriuret Pep Total Protein Albumin Globulin Albumin/Globulin Ratio TSH Urine Color Yellow Urine Appearance Clear Urine pH 5.0 Ur Specific [place] 1.015 Urine Protein Negative Urine Glucose (UA) Negative Urine Ketones Negative Urine Blood Trace H Urine Nitrite Negative Urine Bilirubin Negative Urine Urobilinogen Negative Ur Leukocyte Esterase Trace H Urine WBC (Auto) 5-10 H Urine RBC (Auto) 0-4 U Hyaline Cast (Auto) 1-5 U Epithel Cells (Auto) 10-20 H Urine Bacteria (Auto) Negative COVID-19 Eval Order Covid19 Done at [facility] COVID-19 PCR NEGATIVE Nasopharyn COVID-19 PCR 02/23/20 21:07 WBC RBC Hgb Hct MCV MCH MCHC RDW Std Deviation RDW Coeff of Eduardo Plt Count MPV Immature Gran % (Auto) Neut % (Auto) Lymph % (Auto) [place] % (Auto) Eos % (Auto) Baso % (Auto) Neut # (Auto) Lymph # (Auto) [place] # (Auto) Eos # (Auto) Baso # (Auto) Immature Gran # (Auto) Absolute Nucleated RBC Nucleated RBC % (auto) PT INR APTT PTT Ratio Sodium Potassium Chloride Carbon Dioxide Anion Gap BUN Creatinine Est Cr Clr Drug Dosing Est GFR ( Amer) Est GFR (Non-Af Amer) BUN/Creatinine Ratio Glucose Calcium Magnesium Total Bilirubin AST ALT Alkaline Phosphatase Troponin I 0.084 H* NT-Pro-B Natriuret Pep Total Protein Albumin Globulin Albumin/Globulin Ratio TSH Urine Color Urine Appearance Urine pH Ur Specific [place] Urine Protein Urine Glucose (UA) Urine Ketones Urine Blood Urine Nitrite Urine Bilirubin Urine Urobilinogen Ur Leukocyte Esterase Urine WBC (Auto) Urine RBC (Auto) U Hyaline Cast (Auto) U Epithel Cells (Auto) Urine Bacteria (Auto) COVID-19 Eval Order COVID-19 PCR Nasopharyn COVID-19 PCR Diagnostic Findings PORTABLE CHEST X-RAY Reviewed by the undersigned and formally interpreted by Radiology: IMPRESSION: 1. Interstitial thickening and hazy bilateral opacities. The findings may reflect pulmonary edema or an infectious process. Trace bilateral pleural effusions. Radiographic follow-up is recommended. 2. Stable cardiomegaly. Electronically signed by: Gama Alexander M.D. 02/23/2020 3:39 PM ECG Additional Comments: EKG performed at [address] at 130 / min, PVC's, poor R- wave progression. Code Status & VTE Plan VTE Prophylaxis Plan VTE Prophylaxis will be ordered: Yes (1) Systemic lupus erythematosus Systemic lupus erythematosus type: other Systemic lupus erythematosus organ involvement: other Qualified Code(s): M32.19 - Other organ or system involvement in systemic lupus erythematosus
[2020-02-23] MEDS ORDERED: LORazepam 0.5 MG/1 ML VIAL IV PRN (20:33)
[2020-02-23] MEDS: FLUTICASONE PROPIONATE NA SPR 16 GM BTL SCH (21:35)
[2020-02-23] MEDS: APIXABAN 5 MG TABLET PO SCH (21:36)
[2020-02-23] MEDS: AMOXICILLIN/CLAVULANATE 875 MG TAB PO SCH (21:36)
[2020-02-23] MEDS: HYDROXYCHLOROQUINE SULFATE 200 MG TAB PO SCH (21:36)
[2020-02-23] MEDS: SODIUM CHLORIDE 0.65% NA SOLN 45 ML (OCEAN) SCH (21:36)
[2020-02-23] MEDS: METOPROLOL SUCC 25MG EXT REL TAB PO SCH (21:36)
[2020-02-23] MEDS: traZODone HCL 100 MG TAB PO SCH (21:37)
--- NOTE | 2020-02-24 06:07 | Electrocardiogram Report ---
Test Reason : Blood Pressure : / mmHG Vent. Rate : 130 BPM Atrial Rate : 130 BPM P-R Int : 140 ms QRS Dur : 100 ms QT Int : 312 ms P-R-T Axes : 043 047 016 degrees QTc Int : 459 ms Sinus tachycardia with Premature ventricular complexes Low voltage QRS Septal infarct (cited on or before 01-NOV-2019) Abnormal ECG When compared with ECG of 01-NOV-2019 22:42, Premature ventricular complexes are now Present Confirmed by Benjamin King ([id number]) on 02/24/2020 6:07:35 AM Referred By: Confirmed By:Benjamin King
[2020-02-24 07:10] LABS: BUN Creatinine Ratio 10.5 (10-20); Calcium 9.1 mg/dl (8.5-10.1); Creatinine Clr Calc Pharmacy 99.8 ml/min; Est GFR (African American) 75.9; Est GFR (Non-African American) 65.5; Potassium 3.8 mmol/L (3.5-5.1)
[2020-02-24 07:17] LABS: Troponin I 0.056 ng/ml (0-0.045)
[2020-02-24] MEDS ORDERED: METOPROLOL SUCC 25MG EXT REL TAB PO SCH (09:00)
[2020-02-24] MEDS: AMOXICILLIN/CLAVULANATE 875 MG TAB PO SCH ×2 (09:03→17:20)
[2020-02-24] MEDS: APIXABAN 5 MG TABLET PO SCH ×2 (09:03→20:08)
[2020-02-24] MEDS: METOPROLOL SUCC 25MG EXT REL TAB PO SCH ×2 (09:03→20:08)
[2020-02-24] MEDS: LOSARTAN POTASSIUM 50 MG TAB PO SCH (09:03)
[2020-02-24] MEDS: FOLIC ACID 1 MG TAB PO SCH (09:03)
[2020-02-24] MEDS: predniSONE 5 MG TAB PO SCH (09:04)
[2020-02-24] MEDS: SERTRALINE HCL 100 MG TABLET PO SCH (09:04)
[2020-02-24] MEDS: FLUTICASONE PROPIONATE NA SPR 16 GM BTL SCH ×2 (09:14→20:08)
[2020-02-24] MEDS ORDERED: FUROSEMIDE 40 MG/4 ML VIAL IV ONE (14:35)
[2020-02-24] MEDS ORDERED: FUROSEMIDE 40 MG in SYRINGE 0 ML IV ONE (15:00)
[2020-02-24] MEDS ORDERED: POTASSIUM CHLORIDE 20 MEQ TABCR PO ONE (15:00)
[2020-02-24] MEDS: traZODone HCL 100 MG TAB PO SCH (20:08)
[2020-02-24] MEDS: HYDROXYCHLOROQUINE SULFATE 200 MG TAB PO SCH (20:08)
[2020-02-24] MEDS: SODIUM CHLORIDE 0.65% NA SOLN 45 ML (OCEAN) SCH (20:09)
--- NOTE | 2020-02-24 22:03 | Hospitalist Progress Note ---
Date of Service February 24, 2020 Assessment & Plan (1) Chronic combined systolic and diastolic CHF (congestive heart failure): History of combined systolic and diastolic left ventricular heart failure. Chest x-ray and elevated pro-BNP consistent with CHF = acute on chronic combined systolic and diastolic left ventricular heart failure. Received IV furosemide in ED. Echo showed LVEF 45%, similar to last study. Management of CHF per protocol. Given CHF education. Continue losartan and metoprolol succinate. Titrate diuretics. (2) SVT (supraventricular tachycardia): Experienced palpitations today. Found to be in SVT when EMS arrived. Received adenosine and converted to NSR. K, Mg, TSH, and O2 sats OK. Increase metoprolol succinate to 25 mg BID. Continue cardiac monitoring. (3) Elevated troponin I level: Serum troponins 0.07 > 0.084 > 0.056.. Elevated troponin could demand ischemia secondary to SVT or CHF. Doubt acute coronary syndrome. (4) History of pulmonary embolism: History of VTE. Underlying protein C deficiency, protein S deficiency, lupus 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. Continue apixaban. (5) HTN (hypertension): Continue losartan. Increase metoprolol succinate to 25 mg BID in light of SVT + elevated BP's. (6) Systemic lupus erythematosus: Continue prednisone and hydroxychloroquine. (7) COVID-19 ruled out: SARS-CoV-2 PCR checked because of respiratory symptoms and abnormal chest x-ray. PCR in ED was negative. (8) Venous stasis ulcers of both lower extremities: Followed by Wound Clinic. Due for new Unna boots. Consult Wound Care Nursing. (9) Infection of wound due to methicillin resistant Staphylococcus aureus (MRSA): Contact precautions. (10) Morbid obesity: Wt 148 kg. BMI 52.9. Heart healthy diet. (11) DVT prophylaxis: Continue apixaban. (12) Discharge planning issues: Anticipated discharge to home. Family Medicine follow-up with Dr. Muñoz. Admission and Anticipated Discharge Date Admission Date: February 23, 2020 Subjective Recheck for multiple problems. Patient seen in their room around 1410. Feels better. Less SOB. Minimal cough. No further palpitations. No chest pain. Review of Systems: Constitutional- no fever. Cardiac- as noted above. Pulmonary- as noted above. GI- no nausea, vomiting, diarrhea, melena, hematochezia. - no urinary symptoms. Otherwise, as noted above. Physical Exam Constitutional: no acute distress Respiratory: no respiratory distress Auscultation: + rales Cardiovascular: Rate/Rhythm: regular rate and regular rhythm Heart Sounds: + gallop Vessels: + JVD (neck veins difficult to assess) Extremities: + edema (2-3 + pretibial edema); no calf tenderness Gastrointestinal (Abdomen): Inspection/Auscultation: normal bowel sounds Percussion/Palpation: abdomen soft; abdomen nontender Musculoskeletal: Extremities: no cyanosis Skin: no rashes, warm and dry Psychiatric: Orientation: alert and oriented x 3 Results & Data Results & Data ([facility]) Vital Signs (Past 12 Hours) Vital Signs Temp Pulse Pulse Resp BP BP Pulse Ox 02/24/20 16:02 37.0 C 78 20 132/89 94 02/24/20 14:35 87 02/24/20 12:18 37.1 C 83 19 150/97 H 96 Laboratory Results Laboratory Results - last 24 hr 02/24/20 06:35 Sodium 141 Potassium 3.8 Chloride 112 H Carbon Dioxide 20 L Anion Gap 9.0 BUN 10 Creatinine 0.99 Est Cr Clr Drug Dosing 99.8 Est GFR ( Amer) 75.9 Est GFR (Non-Af Amer) 65.5 BUN/Creatinine Ratio 10.5 Glucose 91 Calcium 9.1 Troponin I 0.056 H* Triglycerides 152 H Cholesterol 163 LDL Cholesterol, Calc 85 VLDL Cholesterol, Calc 30 HDL Cholesterol 48 Cholesterol/HDL Ratio 3 (1) Systemic lupus erythematosus Systemic lupus erythematosus type: other Systemic lupus erythematosus organ involvement: other Qualified Code(s): M32.19 - Other organ or system involvement in systemic lupus erythematosus
[2020-02-25] MEDS: ACETAMINOPHEN 500 MG TAB PO PRN ×2 (03:11→23:18)
--- NOTE | 2020-02-25 07:34 | XRay Report ---
XR chest 1V portable CLINICAL HISTORY: CHF COMPARISON STUDY: 02/23/2020 FINDINGS: The heart remains enlarged. There is persistent elevation of interstitium, likely secondary to congestive failure/fluid overload, although interstitial inflammatory processes could appear danya lar.. There is no lobar consolidation.[ IMPRESSION: Persistent congestive heart failure pattern, similar to the prior study ACT 112: Negative or not required by law. Electronically signed by: Jeff Kimbrough M.D. 02/25/2020 7:32 AM
[2020-02-25] MEDS: APIXABAN 5 MG TABLET PO SCH ×2 (09:11→20:56)
[2020-02-25] MEDS: FOLIC ACID 1 MG TAB PO SCH (09:12)
[2020-02-25] MEDS: LOSARTAN POTASSIUM 50 MG TAB PO SCH (09:12)
[2020-02-25] MEDS: METOPROLOL SUCC 25MG EXT REL TAB PO SCH ×2 (09:14→20:56)
[2020-02-25] MEDS: AMOXICILLIN/CLAVULANATE 875 MG TAB PO SCH ×2 (09:15→18:25)
[2020-02-25] MEDS: SERTRALINE HCL 100 MG TABLET PO SCH (09:16)
[2020-02-25] MEDS: predniSONE 5 MG TAB PO SCH (09:16)
[2020-02-25] MEDS: FLUTICASONE PROPIONATE NA SPR 16 GM BTL SCH ×2 (09:16→21:28)
[2020-02-25] MEDS ORDERED: FUROSEMIDE 40 MG/4 ML VIAL IV ONE (19:13)
[2020-02-25] MEDS ORDERED: FUROSEMIDE 40 MG in SYRINGE 0 ML IV ONE (19:30)
[2020-02-25] MEDS ORDERED: POTASSIUM CHLORIDE 20 MEQ TABCR PO ONE (19:30)
[2020-02-25] MEDS: traZODone HCL 100 MG TAB PO SCH (20:56)
[2020-02-25] MEDS: HYDROXYCHLOROQUINE SULFATE 200 MG TAB PO SCH (20:56)
[2020-02-25] MEDS: SODIUM CHLORIDE 0.65% NA SOLN 45 ML (OCEAN) SCH (20:57)
--- NOTE | 2020-02-25 21:06 | Hospitalist Progress Note ---
Date of Service February 25, 2020 Assessment & Plan (1) Chronic combined systolic and diastolic CHF (congestive heart failure): History of combined systolic and diastolic left ventricular heart failure. Chest x-ray and elevated pro-BNP consistent with CHF = acute on chronic combined systolic and diastolic left ventricular heart failure. Received IV furosemide in ED. Echo showed LVEF 45%, similar to last study. Management of CHF per protocol. Given CHF education. Continue losartan and metoprolol succinate. CXR shows persistent pulmonary edema. Titrate diuretics- IV furosemide today. (2) SVT (supraventricular tachycardia): Experienced palpitations today. Found to be in SVT when EMS arrived. Received adenosine and converted to NSR. K, Mg, TSH, and O2 sats OK. Increased metoprolol succinate to 25 mg BID. Continue cardiac monitoring. (3) Elevated troponin I level: Serum troponins 0.07 > 0.084 > 0.056.. Elevated troponin could demand ischemia secondary to SVT or CHF. Doubt acute coronary syndrome. (4) History of pulmonary embolism: History of VTE. Underlying protein C deficiency, protein S deficiency, lupus 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. Continue apixaban. (5) HTN (hypertension): Continue losartan. Increase metoprolol succinate to 25 mg BID in light of SVT + elevated BP's. (6) Systemic lupus erythematosus: Continue prednisone and hydroxychloroquine. (7) COVID-19 ruled out: SARS-CoV-2 PCR checked because of respiratory symptoms and abnormal chest x-ray. PCR in ED was negative. (8) Venous stasis ulcers of both lower extremities: Followed by [facility]. Due for new [employer] boots. Consult Wound Care Nursing. (9) Infection of wound due to methicillin resistant Staphylococcus aureus (MRSA): Contact precautions. (10) Morbid obesity: Wt 148 kg. BMI 52.9. Heart healthy diet. (11) DVT prophylaxis: Continue apixaban. (12) Discharge planning issues: Anticipated discharge to home. Family Medicine follow-up with Dr. Muñoz. Admission and Anticipated Discharge Date Admission Date: February 23, 2020 Subjective Recheck for multiple problems. Patient seen in their room around 1440. Feels better. Less SOB. Minimal cough. Ear / throat / sinuses better. No further palpitations. No chest pain. Low grade temp. Review of Systems: Constitutional- as noted above. Cardiac- as noted above. Pulmonary- as noted above. GI- no nausea, vomiting, diarrhea, melena, hematochezia. - no urinary symptoms. Otherwise, as noted above. Physical Exam Constitutional: + morbidly obese; no acute distress Respiratory: no respiratory distress Auscultation: + rales Cardiovascular: Rate/Rhythm: regular rate and regular rhythm Vessels: + JVD (neck veins difficult to assess) Extremities: normal capillary refill and + edema (2-3 + pretibial edema); no calf tenderness Gastrointestinal (Abdomen): Inspection/Auscultation: normal bowel sounds Percussion/Palpation: abdomen soft; abdomen nontender Musculoskeletal: Extremities: no cyanosis and no clubbing Skin: no rashes, warm and dry Psychiatric: Orientation: alert and oriented x 3 Results & Data Results & Data ([facility]) Vital Signs (Past 12 Hours) Vital Signs Temp Pulse Pulse Resp BP Pulse Ox 02/25/20 20:22 36.8 C 92 H 20 161/82 H 93 02/25/20 16:07 36.9 C 79 18 140/82 95 02/25/20 14:44 86 02/25/20 12:46 37.8 C H 86 18 138/82 95 02/25/20 09:58 36.8 C 83 18 116/67 94 Laboratory Results 02/23/20 13:30 02/24/20 06:35 Diagnostic Findings PORTABLE CHEST X-RAY Reviewed by the undersigned and formally interpreted by Radiology: FINDINGS: The heart remains enlarged. There is persistent elevation of interstitium, like ly secondary to congestive failure/fluid overload, although interstitial inflammatory processes could appear similar.. There is no lobar consolidation.[ IMPRESSION: Persistent congestive heart failure pattern, similar to the prior study Electronically signed by: Jeff Kimbrough M.D. 02/25/2020 7:32 AM (1) Systemic lupus erythematosus Systemic lupus erythematosus type: other Systemic lupus erythematosus organ involvement: other Qualified Code(s): M32.19 - Other organ or system involvement in systemic lupus erythematosus
[2020-02-26 07:13] LABS: BUN Creatinine Ratio 19.3 (10-20); Calcium 9.2 mg/dl (8.5-10.1); Creatinine Clr Calc Pharmacy 105.3 ml/min; Est GFR (African American) 80.8; Est GFR (Non-African American) 69.8; Potassium 3.7 mmol/L (3.5-5.1)
[2020-02-26] MEDS: AMOXICILLIN/CLAVULANATE 875 MG TAB PO SCH ×3 (08:26→21:27)
[2020-02-26] MEDS: FOLIC ACID 1 MG TAB PO SCH (08:29)
[2020-02-26] MEDS: METOPROLOL SUCC 25MG EXT REL TAB PO SCH ×2 (08:29→21:27)
[2020-02-26] MEDS: APIXABAN 5 MG TABLET PO SCH ×2 (08:29→21:27)
[2020-02-26] MEDS: LOSARTAN POTASSIUM 50 MG TAB PO SCH (08:29)
[2020-02-26] MEDS: predniSONE 5 MG TAB PO SCH (08:29)
[2020-02-26] MEDS: SERTRALINE HCL 100 MG TABLET PO SCH (08:29)
[2020-02-26] MEDS: FLUTICASONE PROPIONATE NA SPR 16 GM BTL SCH ×2 (08:30→21:28)
[2020-02-26] MEDS: ACETAMINOPHEN 500 MG TAB PO PRN ×2 (12:46→21:27)
[2020-02-26] MEDS ORDERED: FUROSEMIDE 40 MG/4 ML VIAL IV ONE (13:20)
[2020-02-26] MEDS ORDERED: POTASSIUM CHLORIDE 20 MEQ TABCR PO ONE (13:20)
[2020-02-26] MEDS ORDERED: FUROSEMIDE 40 MG in SYRINGE 0 ML IV ONE (13:30)
[2020-02-26] MEDS: HYDROXYCHLOROQUINE SULFATE 200 MG TAB PO SCH (21:27)
[2020-02-26] MEDS: traZODone HCL 100 MG TAB PO SCH (21:27)
[2020-02-26] MEDS: SODIUM CHLORIDE 0.65% NA SOLN 45 ML (OCEAN) SCH (21:28)
--- NOTE | 2020-02-26 21:45 | Hospitalist Progress Note ---
Date of Service February 26, 2020 Assessment & Plan (1) Chronic combined systolic and diastolic CHF (congestive heart failure): History of combined systolic and diastolic left ventricular heart failure. Chest x-ray and elevated pro-BNP consistent with CHF = acute on chronic combined systolic and diastolic left ventricular heart failure. Received IV furosemide in ED. Echo showed LVEF 45%, similar to last study here 12/12/18. Management of CHF per protocol. Given CHF education. Continue losartan and metoprolol succinate. CXR 02/24 showed persistent pulmonary edema. Continue IV furosemide. (2) SVT (supraventricular tachycardia): Experienced palpitations day of admission; found to be in SVT when EMS arrived. Received adenosine and converted to NSR. K, Mg, TSH, and O2 sats OK. Increased metoprolol succinate to 25 mg BID. Continue cardiac monitoring. (3) Elevated troponin I level: Serum troponins 0.07 > 0.084 > 0.056.. Elevated troponin could demand ischemia secondary to SVT or CHF. Doubt acute coronary syndrome. (4) History of pulmonary embolism: History of VTE. Underlying protein C deficiency, protein S deficiency, lupus 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. Continue apixaban. (5) HTN (hypertension): Continue losartan. Increase metoprolol succinate to 25 mg BID in light of SVT + elevated BP's. (6) Systemic lupus erythematosus: Continue prednisone and hydroxychloroquine. (7) COVID-19 ruled out: SARS-CoV-2 PCR checked because of respiratory symptoms and abnormal chest x-ray. PCR in ED was negative. (8) Venous stasis ulcers of both lower extremities: Followed by Wound Clinic. Due for new [employer] boots. Consult Wound Care Nursing. (9) Infection of wound due to methicillin resistant Staphylococcus aureus (MRSA): Contact precautions. (10) Morbid obesity: Wt 148 kg. BMI 52.9. Heart healthy diet. (11) DVT prophylaxis: Continue apixaban. (12) Discharge planning issues: Anticipated discharge to home. Family Medicine follow-up with Dr. Muñoz. Admission and Anticipated Discharge Date Admission Date: February 23, 2020 Subjective Recheck for multiple problems. Patient seen in their room around 1140. Feels better. Less SOB. Minimal cough. ENT symptoms essentially resolved. No further palpitations. No chest pain. No fever. Review of Systems: Constitutional- as noted above. Cardiac- as noted above. Pulmonary- as noted above. GI- no nausea, vomiting, diarrhea, melena, hematochezia. - no urinary symptoms. Otherwise, as noted above. Physical Exam Constitutional: + morbidly obese; no acute distress Respiratory: no respiratory distress Auscultation: + rales Cardiovascular: Rate/Rhythm: regular rate and regular rhythm Heart Sounds: + gallop Vessels: + JVD Extremities: normal capillary refill and + edema (2-3 + pretibial edema); no calf tenderness Gastrointestinal (Abdomen): Inspection/Auscultation: normal bowel sounds Percussion/Palpation: abdomen soft; abdomen nontender Musculoskeletal: Extremities: + extremities abnormal to inspection (legs ba ndaged bilat), no cyanosis and no clubbing Skin: no rashes, warm and dry Psychiatric: Orientation: alert and oriented x 3 Results & Data Results & Data ([facility]) Vital Signs (Past 12 Hours) Vital Signs Temp Pulse Resp BP BP Pulse Ox 02/26/20 19:41 36.8 C 85 16 149/84 H 96 02/26/20 16:19 36.8 C 12 L 16 112/74 96 02/26/20 11:37 36.8 C 73 16 125/67 98 Laboratory Results 02/23/20 13:30 02/26/20 06:28 (1) Systemic lupus erythematosus Systemic lupus erythematosus type: other Systemic lupus erythematosus organ involvement: other Qualified Code(s): M32.19 - Other organ or system involveme nt in systemic lupus erythematosus
[2020-02-26] MEDS ORDERED: oxyCODONE HCL IR 5 MG TAB (IMMEDIATE RELEASE) PO STA (23:19)
--- NOTE | 2020-02-27 07:22 | XRay Report ---
XR chest 1V portable HISTORY: 54 years-old Female CHF acute shortness of breath with congestive heart failure COMPARISON: Chest radiograph 02/25/2020 TECHNIQUE: Portable AP view of the chest FINDINGS: Unchanged cardiomegaly. Pulmonary vascular congestion with mildly improved pulmonary edema. No pneumo thorax. Trace pleural effusions. Minimal left lung base opacities favor atelectasis. Degenerative ruba nges of the shoulders and spine. IMPRESSION: Cardiomegaly with mildly improved pulmonary edema. ACT 112: Negative or not required by law. The above report was generated using voice recognition software. It may contain grammatical, syntax o r spelling errors. Electronically signed by: Osito Andrew M.D. 02/27/2020 7:21 AM
[2020-02-27 07:55] LABS: BUN Creatinine Ratio 24.3 (10-20); Calcium 9.2 mg/dl (8.5-10.1); Creatinine Clr Calc Pharmacy 87.5 ml/min; Est GFR (African American) 64.7; Est GFR (Non-African American) 55.8; Potassium 3.9 mmol/L (3.5-5.1)
[2020-02-27] MEDS: APIXABAN 5 MG TABLET PO SCH ×2 (08:21→21:07)
[2020-02-27] MEDS: METOPROLOL SUCC 25MG EXT REL TAB PO SCH ×2 (08:21→21:08)
[2020-02-27] MEDS: FOLIC ACID 1 MG TAB PO SCH (08:21)
[2020-02-27] MEDS: predniSONE 5 MG TAB PO SCH (08:22)
[2020-02-27] MEDS: FLUTICASONE PROPIONATE NA SPR 16 GM BTL SCH ×2 (08:22→21:06)
[2020-02-27] MEDS: LOSARTAN POTASSIUM 50 MG TAB PO SCH (08:22)
[2020-02-27] MEDS: SERTRALINE HCL 100 MG TABLET PO SCH (08:23)
[2020-02-27] MEDS: AMOXICILLIN/CLAVULANATE 875 MG TAB PO SCH (17:30)
[2020-02-27] MEDS: ACETAMINOPHEN 500 MG TAB PO PRN (18:02)
[2020-02-27] MEDS: HYDROXYCHLOROQUINE SULFATE 200 MG TAB PO SCH (21:07)
[2020-02-27] MEDS: traZODone HCL 100 MG TAB PO SCH (21:07)
[2020-02-27] MEDS: SODIUM CHLORIDE 0.65% NA SOLN 45 ML (OCEAN) SCH (21:09)
--- NOTE | 2020-02-27 21:11 | Hospitalist Progress Note ---
Date of Service February 27, 2020 Assessment & Plan (1) Chronic combined systolic and diastolic CHF (congestive heart failure): History of combined systolic and diastolic left ventricular heart failure. Chest x-ray and elevated pro-BNP consistent with CHF = acute on chronic combined systolic and diastolic left ventricular heart failure. Received IV furosemide in ED. Echo showed LVEF 45%, similar to last study here 12/12/18. Management of CHF per protocol. Given CHF education. Continue losartan and metoprolol succinate. CXR today shows persistent (but improving) pulmonary edema. Continue IV furosemide. (2) SVT (supraventricular tachycardia): Experienced palpitations day of admission; found to be in SVT when EMS arrived. Received adenosine and converted to NSR. K, Mg, TSH, and O2 sats OK. Increased metoprolol succinate to 25 mg BID. Continue cardiac monitoring. (3) Elevated troponin I level: Serum troponins 0.07 > 0.084 > 0.056. Elevated troponin could demand ischemia secondary to SVT or CHF. Doubt acute coronary syndrome. (4) History of pulmonary embolism: History of VTE. Underlying protein C deficiency, protein S deficiency, lupus 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. Continue apixaban. (5) HTN (hypertension): Continue losartan. Increase metoprolol succinate to 25 mg BID in light of SVT + elevated BP's. (6) Systemic lupus erythematosus: Continue prednisone and hydroxychloroquine. (7) COVID-19 ruled out: SARS-CoV-2 PCR checked because of respiratory symptoms and abnormal chest x-ray. PCR in ED was negative. (8) Venous stasis ulcers of both lower extremities: Followed by Wound Clinic. Wound Care Nursing consulted. (9) Infection of wound due to methicillin resistant Staphylococcus aureus (MRSA): Contact precautions. (10) Morbid obesity: Wt 148 kg. BMI 52.9. Heart healthy diet. (11) DVT prophylaxis: Continue apixaban. (12) Discharge planning issues: Anticipated discharge to home. Family Medicine follow-up with Dr. Muñoz. Admission and Anticipated Discharge Date Admission Date: February 23, 2020 Subjective Recheck for multiple problems. Patient seen in their room around 1410. Persistent dyspnea on exertion. Rare cough. No further palpitations. No chest pain. No fever. Review of Systems: Constitutional- as noted above. Cardiac- as noted above. Pulmonary- as noted above. GI- no nausea, vomiting, diarrhea, melena, hematochezia. - no urinary symptoms. Otherwise, as noted above. Physical Exam Constitutional: + morbidly obese; no acute distress Respiratory: no respiratory distress Auscultation: + rales Cardiovascular: Rate/Rhythm: regular rate and regular rhythm Vessels: + JVD Extremities: normal capillary refill and + edema (2-3 + pretibial edema); no calf tenderness Gastrointestinal (Abdomen): Inspection/Auscultation: normal bowel sounds Percussion/Palpation: abdomen soft; abdomen nontender Musculoskeletal: Extremities: + extremities abnormal to inspection (legs bandaged bilat), no cyanosis and no clubbing Psychiatric: Orientation: alert and oriented x 3 Results & Data Results & Data ([facility]) Vital Signs (Past 12 Hours) Vital Signs Temp Pulse Pulse Resp BP Pulse Ox 02/27/20 20:00 78 02/27/20 19:15 36.7 C 77 20 114/82 96 02/27/20 16:20 36.6 C 73 20 128/81 94 02/27/20 15:52 79 02/27/20 15:12 37.1 C 75 20 118/74 91 Laboratory Results Laboratory Results - last 24 hr 02/27/20 06:59 Sodium 140 Potassium 3.9 Chloride 106 Carbon Dioxide 26 Anion Gap 8.0 BUN 28 H D Creatinine 1.13 Est Cr Clr Drug Dosing 87.5 Est GFR ( Amer) 64.7 Est GFR (Non-Af Amer) 55.8 BUN/Creatinine Ratio 24.3 H Glucose 88 Calcium 9.2 (1) Systemic lupus erythematosus Systemic lupus erythematosus type: other Systemic lupus erythematosus organ involvement: other Qualified Code(s): M32.19 - Other organ or system involvement in systemic lupus erythematosus
[2020-02-27] MEDS: traMADol HCL 50 MG TABLET PO PRN (23:40)
[2020-02-28 07:00] LABS: BUN Creatinine Ratio 26.8 (10-20); Creatinine Clr Calc Pharmacy 102.2 ml/min; Est GFR (African American) 79.8; Est GFR (Non-African American) 68.9; Potassium 3.9 mmol/L (3.5-5.1)
[2020-02-28] MEDS ORDERED: FUROSEMIDE 40 MG TAB PO SCH (09:00)
[2020-02-28] MEDS: SERTRALINE HCL 100 MG TABLET PO SCH (09:28)
[2020-02-28] MEDS: APIXABAN 5 MG TABLET PO SCH (09:28)
[2020-02-28] MEDS: METOPROLOL SUCC 25MG EXT REL TAB PO SCH (09:28)
[2020-02-28] MEDS: FOLIC ACID 1 MG TAB PO SCH (09:29)
[2020-02-28] MEDS: predniSONE 5 MG TAB PO SCH (09:29)
[2020-02-28] MEDS: AMOXICILLIN/CLAVULANATE 875 MG TAB PO SCH (09:29)
[2020-02-28] MEDS: LOSARTAN POTASSIUM 50 MG TAB PO SCH (09:29)
[2020-02-28] MEDS: FLUTICASONE PROPIONATE NA SPR 16 GM BTL SCH (09:30)
[2020-02-28 11:38] VITALS: TEMP 97.6; O2SAT 94
--- NOTE | 2020-02-28 12:49 | Hospitalist Progress Note ---
Date of Service February 28, 2020 Assessment & Plan (1) Chronic combined systolic and diastolic CHF (congestive heart failure): History of combined systolic and diastolic left ventricular heart failure. Chest x-ray and elevated pro-BNP consistent with CHF = acute on chronic combined systolic and diastolic left ventricular heart failure. Received IV furosemide in ED. Echo showed LVEF 45%, similar to last study here 12/12/18. Management of CHF per protocol. Given CHF education. Receiving IV furosemide with clinical and radiographic improvement. Continue losartan and metoprolol succinate. Discharge on increased dose of furosemide 40 mg daily. CHF instructions given. (2) SVT (supraventricular tachycardia): Experienced palpitations day of admission; found to be in SVT when EMS arrived. Received adenosine and converted to NSR. K, Mg, TSH, and O2 sats OK. Increased metoprolol succinate to 25 mg BID. (3) Elevated troponin I level: Serum troponins 0.07 > 0.084 > 0.056. Elevated troponin could demand ischemia secondary to SVT or CHF. Doubt acute coronary syndrome. (4) History of pulmonary embolism: History of VTE. Underlying protein C deficiency, protein S deficiency, lupus 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. Continue apixaban. (5) HTN (hypertension): Continue losartan. Increase metoprolol succinate to 25 mg BID in light of SVT + elevated BP's. (6) Systemic lupus erythematosus: Continue prednisone and hydroxychloroquine. (7) COVID-19 ruled out: SARS-CoV-2 PCR checked because of respiratory symptoms and abnormal chest x-ray. PCR in ED was negative. (8) Venous stasis ulcers of both lower extremities: Followed by Wound Clinic. Wound Care Nursing consulted. (9) Infection of wound due to methicillin resistant Staphylococcus aureus (MRSA): Contact precautions. (10) Morbid obesity: Wt 148 kg. BMI 52.9. Heart healthy diet. (11) DVT prophylaxis: Continue apixaban. (12) Discharge planning issues: Discharge to home. Family Medicine follow-up with Dr. Muñoz. Admission and Anticipated Discharge Date Admission Date: February 23, 2020 Subjective Recheck for multiple problems. Patient seen in their room around 1120. No further dyspnea. Rare nonproductive cough. No further palpitations. No chest pain. No fever. Review of Systems: Constitutional- as noted above. Cardiac- as noted above. Pulmonary- as noted above. GI- no nausea, vomiting, diarrhea, melena, hematochezia. - no urinary symptoms. Otherwise, as noted above. Physical Exam Constitutional: + morbidly obese; no acute distress Respiratory: normal respiratory effort, lungs clear to auscultation Cardiovascular: Rate/Rhythm: regular rate and regular rhythm Extremities: normal capillary refill and + edema (2-3 + pretibial edema); no calf tenderness Gastrointestinal (Abdomen): Inspection/Auscultation: normal bowel sounds Percussion/Palpation: abdomen soft; abdomen nontender Musculoskeletal: Extremities: + extremities abnormal to inspection (legs wrapped bilat) and no cyanosis Psychiatric: Orientation: alert and oriented x 3 Results & Data Results & Data ([facility]) Vital Signs (Past 12 Hours) Vital Signs Temp Pulse Pulse Pulse Resp BP Pulse Ox 02/28/20 11:36 36.4 C 81 20 103/71 94 02/28/20 07:25 75 02/28/20 07:00 36.4 C L 84 18 125/80 93 02/28/20 03:00 36.7 C 93 H 20 136/83 93 Laboratory Results 02/28/20 06:06 (1) Systemic lupus erythematosus Systemic lupus erythematosus type: other Systemic lupus erythematosus organ involvement: other Qualified Code(s): M32.19 - Other organ or system involvement in systemic lupus erythematosus
--- NOTE | 2020-02-28 13:07 | Discharge Summary ---
Date of Service Date of Admission: 02/23/20 Date of Discharge: 02/28/20 Admission HPI Per Admitting Provider 54 YO female followed by Dr. Muñoz for Family Medicine. History of CHF, hypertension, VTE, SLE, and other problems as outlined below. Developed pharyngitis about 10 days ago. Progressive malaise. Intermittent headache. Seen in ED yesterday with ear pain and found to have otitis media. Started on amoxicillin / clavulanic acid. [place] worse this morning. Subjective fever and chills. Experienced nausea, vomiting, diarrhea. No hematemesis, melena, hematochezia. Somewhat SOB. Rare cough. Noted palpitations, no chest pain. Summoned EMS. She was found to be in SVT and received IV adenosine with conversion to sinus rhythm. No known exposure to COVID-19. Principal Diagnosis acute on chronic left ventricular combined systolic and diastolic heart failure OTHER ACUTE / NEW DIAGNOSES: supraventricular tachycardia, paroxysmal Discharge Data Allergies Allergy/AdvReac Type Severity Reaction Status Date / Time heparin Allergy Severe HIT R/O Verified 02/23/20 14:52 from last hospital admission - rather was dx w/ ITP vancomycin Allergy Intermediate RASH Verified 02/23/20 14:52 doxycycline Allergy Mild Rash Verified 02/23/20 14:52 polymyxin B Allergy Mild Rash Verified 02/23/20 14:52 Pork/Porcine Containing Allergy Mild Rash Verified 02/23/20 14:52 Products tetracycline Allergy Mild RASH, Verified 02/23/20 14:52 PRURITIS amlodipine Allergy Unknown Unknown Verified 02/23/20 14:52 bacitracin Allergy Unknown Unknown Verified 02/23/20 14:52 Consultations 02/23/20 16:41 ED Decision to Admit Stat Hospital Course (1) Chronic combined systolic and diastolic CHF (congestive heart failure): History of combined systolic and diastolic left ventricular heart failure. Chest x-ray and elevated pro-BNP consistent with CHF = acute on chronic combined systolic and diastolic left ventricular heart failure. Received IV furosemide in ED. Echo showed LVEF 45%, similar to last study here 12/12/18. Management of CHF per protocol. Given CHF education. Receiving IV furosemide with clinical and radiographic improvement. Continue losartan and metoprolol succinate. Discharge on increased dose of furosemide 40 mg daily. CHF instructions given. (2) SVT (supraventricular tachycardia): Experienced palpitations day of admission; found to be in SVT when EMS arrived. Received adenosine and converted to NSR. K, Mg, TSH, and O2 sats OK. Increased metoprolol succinate to 25 mg BID. (3) Elevated troponin I level: Serum troponins 0.07 > 0.084 > 0.056. Elevated troponin could demand ischemia secondary to SVT or CHF. Doubt acute coronary syndrome. (4) History of pulmonary embolism: History of VTE. Underlying protein C deficiency, protein S deficiency, lupus 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. Continue apixaban. (5) HTN (hypertension): Continue losartan. Increase metoprolol succinate to 25 mg BID in light of SVT + elevated BP's. (6) Systemic lupus erythematosus: Continue prednisone and hydroxychloroquine. (7) COVID-19 ruled out: SARS-CoV-2 PCR checked because of respiratory symptoms and abnormal chest x-ray. PCR in ED was negative. (8) Venous stasis ulcers of both lower extremities: Followed by [facility]. Wound Care Nursing consulted. (9) Infection of wound due to methicillin resistant Staphylococcus aureus (MRSA): Contact precautions. (10) Morbid obesity: Wt 148 kg. BMI 52.9. Heart healthy diet. (11) DVT prophylaxis: Continue apixaban. (12) Discharge planning issues: Discharge to home. Family Medicine follow-up with Dr. Muñoz. Total Time Total Time Spent Total Time Spent (In Minutes): 40 Discharge Plan Discharge Items Patient Disposition: Home - Home Health Services Reason For Visit: shortness of breath and palpitations Discharge Diagnosis: congestive heart failure (fluid in lungs) SVT (supraventricular tachycardia = rapid heart beat) Condition on Discharge: Good Activity: Resume your previous activity Non-emergency contact: Primary Care Provider and Hospitalist Call non-emergency contact if: you have any medication questions Follow-up/Referrals: Deborah Muñoz DO [Primary Care Provider] - (Date & Time 03/01/2020 2:20 PM Deborah Muñoz DO [facility] ) Diet: Heart Healthy Addtl Attending Provider Instructions: MEDICATION CHANGES: Increase furosemide (Lasix) to 40 mg (2 pills) each morning. Increase metoprolol succinate (Toprol XL) to 25 mg twice a day. (Please ask Dr. Muñoz for new prescriptions for 90-day supplies.) SUMMARY OF TEST RESULTS: Chest x-ray showed fluid in lungs (congestive heart failure). COVID test was negative. RECOMMENDATIONS FOR FOLLOW-UP: Follow-up for leg ulcers with [facility]. OTHER INSTRUCTIONS: Seek medical attention if you have: * temperature above 101 * chest pain or trouble breathing * abdominal pain, nausea, vomiting * diarrhea, dark stools or bloody stools * any unanswered questions or concerns Call 911 if symptoms are severe. Please take good care of yourself. Call if you have any questions or problems. You can reach a [facility] hospitalist on duty at [facility] 24 hours a day by calling [phone]. My cell # is [phone]. INSTRUCTIONS FOR CONGESTIVE HEART FAILURE Call 911 and go to the Emergency Room if: * You have tightness or pain in your chest that does not go away with rest or Nitroglycerin * You are very short of breath even with rest Call your doctor if any of the following symptoms or problems start or get worse: * Shortness of breath or difficulty breathing * Wake up at night short of breath * Chest pain * Cough * Swelling of your hands, fee, or legs * More fatigued or tired with your normal activity * Palpitations - sudden fast heart beats WEIGHT * Weigh yourself every morning after using the bathroom. * Use the same scale. * Wear the same amount of clothing. * Write your weight down on your chart. * Call your doctor if you gain more than 2-3 pounds in 1-2 days. MEDICATIONS * Use this discharge instruction sheet for instructions. * Take your medications at the time your doctor ordered. * Do not skip a dose of your medicines. * If you miss a dose of medicine, take as soon as possible, but DO NOT DOUBLE A DOSE. * Read your medicine information when you get home. * Know all of the side effects of your medicine. * Call your doctor's office if you have any side effects. * Be sure all of your doctors know what medicine and herbs you take (including cold, flu, and herbal medicine). * Pain Medicine: If you do not get relief from your pain, please call your doctor for help. Take the following with you to your follow-up doctor appointments: * Weight Chart * Medication List * List of questions Do not drink excessive alcohol, beer or wine. Pending Studies at Discharge: No Stand-Alone Forms: My [facility], Smoking Cessation Medications and DC Order Prescriptions: Continued acetaminophen [Tylenol Extra Strength] 500 mg tablet 1,000 mg PO Q8H PRN (Reason: Pain) RF: 0 apixaban [Eliquis] 5 mg tablet 5 mg PO BID RF: 0 belimumab [Benlysta] 400 mg recon soln 1,200 mg IV UD RF: 0 calcium carbonate [Calcium 500] 500 mg calcium (1,250 mg) tablet,chewable 1,000 mg PO QAM RF: 0 calcium carbonate-vitamin D3 [Os-Marco A 500 + D3] 500 mg(1,250mg) -200 unit tablet 1 tab PO QAM RF: 0 diphenhydramine HCl [Allergy (diphenhydramine)] 25 mg tablet 25 mg PO Q6H PRN (Reason: itching) RF: 0 fluticasone propionate [Flonase Allergy Relief] 50 mcg/actuation spray,suspension 2 sprays INTNAS BID RF: 0 folic acid 1 mg tablet 1 mg PO QAM RF: 0 hydroxychloroquine [Plaquenil] 200 mg tablet 400 mg PO PM RF: 0 multivitamin with minerals capsule 1 cap PO QAM RF: 0 prednisone 5 mg tablet 5 mg PO QAM RF: 0 sodium chloride [Saline Nasal] 0.65 % aerosol,spray 2 sprays INTNAS QPM RF: 0 sertraline [Zoloft] 100 mg tablet 100 mg PO QAM RF: 0 trazodone 50 mg tablet 100 mg PO HS RF: 0 losartan 100 mg Tablet 100 mg PO QAM RF: 0 Changed furosemide 20 mg tablet 40 mg PO QAM Qty: 0 RF: 0 metoprolol succinate 25 mg tablet extended release 24 hr 25 mg PO BID Qty: 0 RF: 0 Discontinued amoxicillin-pot clavulanate [Augmentin] 875-125 mg tablet 1 tab PO BID Qty: 20 RF: 0 Discharge Orders: Discharge Order (Routine); Ordered 02/28/20 Ordered By: Angel Walker Admission Data Admit Date/Time: 02/23/20 18:47 Attending Provider: Angel Walker Admit Provider: Angel Walker Primary Care Provider: Deborah Muñoz Other Providers: [facility]Home [facility] ; Angel Walker Other Interventions: Discharge Summary Assessment (RN) Last Done: 02/28/20 13:17
[2020-02-28 13:18] VITALS: BP 112/74
[2020-02-28] MEDS: traMADol HCL 50 MG TABLET PO PRN (13:25)
[2020-02-28 15:11] VITALS: PULSE 85
== END 2020-02-28 15:58 | disposition home health service (06) | DRG 291 ==
LOC: ED 13:22 → 2S 18:47 → 2W 02-27 14:38

== ENCOUNTER 2020-08-14 03:12 | Inpatient (IN) ==
[2020-08-14] MEDS ORDERED: ALBUT/IPRATROP 3MG/0.5MG NEB 3 ML VIAL NEB STA (03:18)
[2020-08-14] MEDS ORDERED: ALBUT/IPRATROP 3MG/0.5MG NEB 3 ML VIAL ONE (03:20)
[2020-08-14] MEDS ORDERED: MAGNESIUM SULFATE / D5W 1 GM/100 ML BAG IV STA (03:27)
[2020-08-14] MEDS ORDERED: SODIUM CHLORIDE 0.9% 1000ML 1,000 ML IV SCH (03:30)
[2020-08-14] MEDS ORDERED: ACETAMINOPHEN 1000 MG/100 ML IV IV ONE (03:33)
[2020-08-14] MEDS ORDERED: ACETAMINOPHEN 1,000 MG/100 ML VIAL IV STA (03:33)
--- NOTE | 2020-08-14 03:53 | Emergency Department Note ---
History of Present Illness General Chief complaint: Respiratory Problems Stated complaint: RESPIRATORY DIFFICULTY Time Seen by Provider: 08/14/20 03:18 Source: patient and EMS Mode of arrival: EMS Limitations: clinical acuity History of Present Illness Provider complaint: shortness of breath Onset (ago): day(s) 3 Location: chest Radiation: non-radiation Severity: moderate Pain Consistency: + constant Relieved By: + none Exacerbated By: + movement Associated symptoms: + chest pain, + cough, + fever/chills, + loss of appetite and + shortness of breath; no headaches and no nausea/vomiting Treatments prior to arrival: none This is a 55-year-old male who presents via EMS due to concern for worsening shortness of breath. Patient states she has had an increased cough over the last several days and has been developing some mild chest tightness with the cou gh. She states this evening after dinner her breathing became markedly worse. She states she did try using her MDI however did not help. As her breathing worsened she eventually called 911. EMS states on their arrival patient was tachypneic in the 40s and oxygen saturations in room air were in the 80s. Patient does have a prior history of asthma, denies history or current use of tobacco. Patient is currently staying in a hotel room with 4-5 other people. She denies any known exposure to coronavirus. She states she did have a influenza shot previously. Patient states she does have accompanying chest tightness. She notes her cough has not been productive over the last several days. States she has previously had pneumonia and this feels different. She states she has had diarrhea, no other abdominal pain, no nausea or vomiting. Patient states this evening she began to feel as though she was developing a fever, and EMS also reported she was warm to the touch. Patient was placed on nasal cannula by EMS and oxygen saturations improved, however patient was still tachypneic on arrival. Pt seen during a time of high acuity and national emergency pandemic while wearing PPE. Home Medications Medication Instructions Recorded Confirmed Type acetaminophen 500 mg tablet 1,000 mg PO Q8H PRN tab 01/05/18 08/14/20 History apixaban 5 mg tablet 5 mg PO BID tab 01/05/18 08/14/20 History belimumab 400 mg intravenous 1,200 mg IV UD ea 01/05/18 08/14/20 History solution calcium carbonate 500 mg (1,250 1 tab PO QAM tab 01/05/18 08/14/20 History mg)-vitamin D3 200 unit tablet calcium carbonate 500 mg calcium 1,000 mg PO QAM tab 01/05/18 08/14/20 History (1,250 mg) chewable tablet diphenhydramine HCl 25 mg tablet 25 mg PO Q6H PRN tab 01/05/18 08/14/20 History fluticasone propionate 50 2 sprays INTNAS BID gm 01/05/18 08/14/20 History mcg/actuation nasal spray,suspension folic acid 1 mg tablet 1 mg PO QAM 01/05/18 08/14/20 History hydroxychloroquine 200 mg tablet 400 mg PO PM tab 01/05/18 08/14/20 History multivitamin with minerals 1 cap PO QAM cap 01/05/18 08/14/20 History prednisone 5 mg tablet 5 mg PO QAM 01/05/18 08/14/20 History sertraline 100 mg tablet 100 mg PO QAM 01/05/18 08/14/20 History sodium chloride 0.65 % nasal spray 2 sprays INTNAS QPM ml 01/05/18 08/14/20 History aerosol trazodone 50 mg tablet 100 mg PO HS tab 01/05/18 08/14/20 History losartan 100 mg PO QAM 12/11/18 08/14/20 History furosemide 40 mg PO QAM #0 tab 02/28/20 08/14/20 Rx metoprolol succinate 25 mg PO BID #0 tab 02/28/20 08/14/20 Rx Allergies Allergy/AdvReac Type Severity Reaction Status Date / Time heparin Allergy Severe HIT R/O Verified 07/06/20 11:16 from last hospital admission - rather was dx w/ ITP vancomycin Allergy Intermediate RASH Verified 07/06/20 11:16 doxycycline Allergy Mild Rash Verified 07/06/20 11:16 polymyxin B Allergy Mild Rash Verified 07/06/20 11:16 Pork/Porcine Containing Allergy Mild Rash Verified 07/06/20 11:16 Products tetracycline Allergy Mild RASH, Verified 07/06/20 11:16 PRURITIS amlodipine Allergy Unknown Unknown Verified 07/06/20 11:16 bacitracin Allergy Unknown Unknown Verified 07/06/20 11:16 sulfamethoxazole AdvReac Intermediate precipitates Verified 07/12/20 07:42 [From Bactrim] lupus per Rheumatology trimethoprim [From Bactrim] AdvReac Intermediate precipitates Verified 07/12/20 07:42 lupus per Rheumatology Past Med/Surg History Medical History Antiphospholipid antibody syndrome Chronic combined systolic and diastolic CHF (congestive heart failure) Chronic venous insufficiency CKD (chronic kidney disease), stage III Depression Diabetes DVT (deep venous thrombosis) GERD (gastroesophageal reflux disease) Chaim filter in place History of idiopathic thrombocytopenic purpura History of pulmonary embolism HTN (hypertension) Hypercoagulable state "protein C deficiency, positive phospholipid AB syndrome, positive lupus 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" 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 Lupus 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 positive Morbid obesity Ovarian cyst Pancytopenia Protein C deficiency Protein S deficiency Pulmonary embolism Systemic lupus erythematosus Venous stasis ulcers of both lower extremities Surgical History H/O exploratory laparotomy H/O hernia repair H/O tooth extraction History of dilatation and curettage History of inferior vena caval filter placement S/P appendectomy S/P section S/P cholecystectomy S/P hysterectomy Family History Mother Colorectal cancer Pulmonary embolism Grandfather Cancer Social History Smoking Status: Never smoker Second Hand Exposure: No; Do You Dip or Chew Tobacco: No; Tobacco Cessation Education Requested by Patient: No Hx Alcohol Use: No Hx Substance Use: No Preferred Language: Montenegrin Communication Ability: Effective 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 and A total of 10 systems reviewed and were otherwise negative Physical Exam Vital Signs Vital Signs - 24 hr 08/14/20 03:19 08/14/20 03:21 08/14/20 03:29 Temperature 38.6 C H Temperature Source Oral Pulse Rate 111 H 106 H Pulse Rate [Right Finger] Pulse Rate from SpO2 Sensor 107 H Respiratory Rate 34 H 23 32 H Respiratory Effort / Characteristics Non-Labored Spontaneous Spontaneous Labored Short of Breath Respiratory Depth Normal Blood Pressure 194/100 H 173/70 H Blood Pressure Mean 131 104 Pulse Oximetry 97 97 98 Oxygen Delivery Method Nasal Cannula High Flow Nasal Cannula Nasal Cannula Oxygen Flow Rate 4 40 4 Fraction of Inspired Oxygen SaO2/FiO2 Ratio Sepsis Recent Fever Within 48 Hours Yes Sepsis New/Unexplained Change in Mental Status N/A Sepsis Action Taken by Nursing Physician Notified 08/14/20 03:30 08/14/20 03:38 08/14/20 03:39 Temperature Temperature Source Pulse Rate 114 H 109 H Pulse Rate [Right Finger] Pulse Rate from SpO2 Sensor 113 H Respiratory Rate 19 24 25 H Respiratory Effort / Characteristics Spontaneous Labored Respiratory Depth Blood Pressure Blood Pressure Mean Pulse Oximetry 98 96 97 Oxygen Delivery Method High Flow Nasal Cannula High Flow Nasal Cannula High Flow Nasal Cannula Oxygen Flow Rate 40 40 40 Fraction of Inspired Oxygen SaO2/FiO2 Ratio Sepsis Recent Fever Within 48 Hours Sepsis New/Unexplained Change in Mental Status Sepsis Action Taken by Nursing 08/14/20 03:40 08/14/20 03:41 08/14/20 03:45 Temperature Temperature Source Pulse Rate 108 H Pulse Rate [Right Finger] 106 H 111 H Pulse Rate from SpO2 Sensor 109 H Respiratory Rate 20 22 25 H Respiratory Effort / Characteristics Non-Labored Spontaneous Non-Labored Spontaneous Respiratory Depth Blood Pressure Blood Pressure Mean Pulse Oximetry 97 96 97 Oxygen Delivery Method Nasal Cannula High Flow Nasal Cannula High Flow Nasal Cannula Oxygen Flow Rate 4 40 40 Fraction of Inspired Oxygen 40 40 SaO2/FiO2 Ratio Sepsis Recent Fever Within 48 Hours Sepsis New/Unexplained Change in Mental Status Sepsis Action Taken by Nursing 08/14/20 03:50 08/14/20 04:00 08/14/20 04:02 Temperature Temperature Source Pulse Rate 100 H 104 H Pulse Rate [Right Finger] Pulse Rate from SpO2 Sensor 100 H 104 H Respiratory Rate 14 23 27 H Respiratory Effort / Characteristics Spontaneous Labored Respiratory Depth Blood Pressure 168/97 H Blood Pressure Mean 120 Pulse Oximetry 97 98 97 Oxygen Delivery Method High Flow Nasal Cannula High Flow Nasal Cannula Oxygen Flow Rate 40 40 40 Fraction of Inspired Oxygen 40 40 40 SaO2/FiO2 Ratio Sepsis Recent Fever Within 48 Hours Sepsis New/Unexplained Change in Mental Status Sepsis Action Taken by Nursing 08/14/20 04:15 08/14/20 04:30 08/14/20 04:35 Temperature 38.1 C H Temperature Source Oral Pulse Rate 101 H 94 H Pulse Rate [Right Finger] 91 H Pulse Rate from SpO2 Sensor 100 H 94 H Respiratory Rate 26 H 19 24 Respiratory Effort / Characteristics Spontaneous Spontaneous Respiratory Depth Blood Pressure 157/77 H Blood Pressure Mean 103 Pulse Oximetry 97 98 98 Oxygen Delivery Method High Flow Nasal Cannula High Flow Nasal Cannula Oxygen Flow Rate 40 40 40 Fraction of Inspired Oxygen 40 40 40 SaO2/FiO2 Ratio 245 Sepsis Recent Fever Within 48 Hours Sepsis New/Unexplained Change in Mental Status Sepsis Action Taken by Nursing 08/14/20 04:45 08/14/20 05:00 Temperature Temperature Source Pulse Rate 89 92 H Pulse Rate [Right Finger] Pulse Rate from SpO2 Sensor 89 92 H Respiratory Rate 23 25 H Respiratory Effort / Characteristics Respiratory Depth Blood Pressure 156/82 H Blood Pressure Mean 106 Pulse Oximetry 97 96 Oxygen Delivery Method High Flow Nasal Cannula High Flow Nasal Cannula Oxygen Flow Rate 40 40 Fraction of Inspired Oxygen 40 40 SaO2/FiO2 Ratio Sepsis Recent Fever Within 48 Hours Sepsis New/Unexplained Change in Mental Status Sepsis Action Taken by Nursing GENERAL: alert, unwell appearing, well nourished, moderate distress, obese, NC in place EYE EXAM: normal conjunctiva, PERRL and EOM's grossly intact OROPHARYNX: no exudate, no erythema, lips, buccal mucosa, and tongue normal and mucous membranes are moist NECK: supple, no nuchal rigidity, no adenopathy, non-tender LUNGS: Coarse to auscultation. Normal chest wall mechanics, no w/r/r, tachypnea, increased WOB, coarse cough noted during exam HEART: no murmurs, S1 normal and S2 normal, sinus tachycardia on telemetry ABDOMEN: abdomen soft, non-tender, normo-active bowel sounds, no masses, no rebound or guarding. BACK: Back is symmetrical on inspection and there is no deformity, no midline tenderness, no CVA tenderness. SKIN: no rashes and no bruising, no petechiae UPPER EXTREMITIES: upper extremities are grossly normal. FROM, nml pulses b/l. LOWER EXTREMITIES: No pitting edema. FROM, nml pulses b/l. NEURO EXAM: Normal sensorium, cranial nerves II-XII grossly intact, normal speech, no gross weakness of arms, no gross weakness of legs. Gross sensation intact. Course Course 032: Patient still tachypneic, DuoNeb started by RT. 0346: Tachypnea is improving, patient now on high flow nasal cannula. Vital signs stable otherwise. 0410: Patient updated on cxr findings. VS stable. 0502: pt updated on additional results. 0512: Discussed with Dr. Watts. Administered Medications Acetaminophen (Acetaminophen 325 Mg Tab) 650 mg PO Q4H PRN PRN Reason: Pain or Fever Stop: 09/13/20 08:27 Last Admin: 08/14/20 21:15 Dose: 650 mg Documented by: [id number] Apixaban (Apixaban 5 Mg Tablet) 5 mg PO BID [facility] Stop: 09/13/20 08:59 Last Admin: 08/14/20 21:14 Dose: 5 mg Documented by: [id number] Admin: 08/14/20 09:34 Dose: 5 mg Documented by: [id number] Calcium Carbonate (Calcium Carbonate 1250mg Tab) 1,250 mg PO QAM [facility] Stop: 09/13/20 08:59 Last Admin: 08/14/20 09:34 Dose: 1,250 mg Documented by: [id number] Diphenhydramine HCl (Diphenhydramine Capsule 25 Mg Cap) 25 mg PO Q6H PRN PRN Reason: itching Stop: 09/13/20 08:27 Last Admin: 08/14/20 21:22 Dose: 25 mg Documented by: [id number] Fluticasone Propionate (Fluticasone Propionate Na Spr 16 Gm Btl) 2 sprays NA BI D [facility] Stop: 09/13/20 08:59 Last Admin: 08/14/20 21:14 Dose: 2 sprays Documented by: [id number] Admin: 08/14/20 09:32 Dose: 2 sprays Documented by: [id number] Folic Acid (Folic Acid 1 Mg Tab) 1 mg PO QAM [facility] Stop: 09/13/20 08:59 Last Admin: 08/14/20 09:34 Dose: 1 mg Documented by: [id number] Furosemide (Furosemide 40 Mg Tab) 40 mg PO QAM [facility] Stop: 09/13/20 08:59 Last Admin: 08/14/20 09:34 Dose: 40 mg Documented by: [id number] Guaifenesin (Guaifenesin Sugar Free 200 Mg/10 Ml Udc) 200 mg PO Q6H PRN PRN Reason: Cough Stop: 09/13/20 19:29 Last Admin: 08/14/20 21:16 Dose: 200 mg Documented by: [id number] Losartan Potassium (Losartan Potassium 50 Mg Tab) [facility] [place] Stop: 09/13/20 08:59 Last Admin: 08/14/20 09:34 Dose: 100 mg Documented by: [id number] Metoprolol Succinate (Metoprolol Succ 25mg Ext Rel Tab) 25 mg PO BID [facility] Stop: 09/13/20 08:59 Last Admin: 08/14/20 21:13 Dose: 25 mg Documented by: [id number] Admin: 08/14/20 09:33 Dose: 25 mg Documented by: [id number] Multivitamins (Multivitamin Tab) 1 tab PO [facility] Stop: 09/13/20 08:59 Last Admin: 08/14/20 09:34 Dose: 1 tab Documented by: [id number] Sertraline HCl (Sertraline Hcl 100 Mg Tablet) 100 mg PO [facility] Stop: 09/13/20 08:59 Last Admin: 08/14/20 09:33 Dose: 100 mg Documented by: [id number] Sodium Chloride (Sodium Chloride 0.9% 10ml Flush) 30 ml IV DAILY@1200 [facility] Stop: 08/18/20 12:01 Last Admin: 08/14/20 09:45 Dose: 30 ml Documented by: [id number] Sodium Chloride (Sodium Chloride 0.65% Na Soln 45 Ml ([place])) 2 sprays NA QPM [facility] Stop: 09/13/20 20:59 Last Admin: 08/14/20 21:16 Dose: Not Given Documented by: [id number] Trazodone HCl (Trazodone Hcl 100 Mg Tab) 100 mg PO HS [facility] Stop: 09/13/20 20:59 Last Admin: 08/14/20 21:14 Dose: 100 mg Documented by: [id number] Discontinued Medications Acetaminophen (Acetaminophen 1000 Mg/100 Ml Iv) Confirm Administered Dose 1,000 mg IV .STK-MED ONE Stop: 08/14/20 03:34 Last Admin: 08/14/20 03:49 Dose: Not Given Documented by: [id number] Albuterol (Albut/Ipratrop 3mg/0.5mg Neb 3 Ml Vial) 3 ml NEB NOW STA Stop: 08/14/20 03:19 Last Admin: 08/14/20 03:40 Dose: 3 ml Documented by: [id number] Albuterol (Albut/Ipratrop 3mg/0.5mg Neb 3 Ml Vial) Confirm Administered Dose 3 ml .ROUTE .STK-MED ONE Stop: 08/14/20 03:21 Last Admin: 08/14/20 03:49 Dose: Not Given Documented by: [id number] Dexamethasone (Dexamethasone Sod Inj 4 Mg/Ml Vial) 6 mg IV NOW STA Stop: 08/14/20 04:11 Last Admin: 08/14/20 04:28 Dose: 6 mg Documented by: [id number] Sodium Chloride (Nss 1000ml) 1,000 mls @ 999 mls/hr IV .Q1H1M ART Stop: 08/14/20 04:30 Last Infusion: 08/14/20 05:16 Dose: 0 mls/hr Documented by: [id number] Admin: 08/14/20 03:48 Dose: 999 mls/hr Documented by: [id number] Magnesium Sulfate/Dextrose (Magnesium Sulfate / D5w) 1 gm in 100 mls @ 100 mls/hr IV NOW STA Stop: 08/14/20 04:26 Last Infusion: 08/14/20 04:28 Dose: 0 mls/hr Documented by: [id number] Admin: 08/14/20 03:59 Dose: 100 mls/hr Documented by: [id number] Acetaminophen (Ofirmev) 1,000 mg in 100 mls @ 400 mls/hr IV NOW STA Stop: 08/14/20 03:47 Last Infusion: 08/14/20 03:59 Dose: 0 mls/hr Documented by: [id number] Admin: 08/14/20 03:48 Dose: 400 mls/hr Documented by: [id number] Remdesivir 200 mg/ Sodium (Chloride) 250 mls @ 125 mls/hr IV TODAY@1000 ONE; Protocol Stop: 08/14/20 11:59 Last Infusion: 08/14/20 11:39 Dose: 0 mls/hr Documented by: [id number] Admin: 08/14/20 09:33 Dose: 125 mls/hr Documented by: [id number] Critical Care Time Critical Care Time: Yes Total Critical Care Time: 41 Critical care of 41 min performed to assess and manage high likelihood of life- threatening respiratory failure, involving labs and imaging performed with assessment to evaluate respiratory failure diagnosis with frequent reassessment. This time includes bedside time, treatment discussions with patient/family/consultants, documentation time and excludes procedure time. Medical Decision Making Differential Diagnosis Differential diagnoses includes but is not limited to pneumonia, bronchitis, COPD/Asthma exacerbation, pneumothorax, pulmonary embolism, congestive heart failure, acute coronary syndrome Medical Records Attestation: I reviewed the patient's medical records. Home Medications Current Medication List: was personally reviewed by me Laboratory Data Attestation: I reviewed the patient's lab results. Result diagrams: 08/15/20 05:30 08/14/20 03:45 Lab Results 08/14/20 08/14/20 08/14/20 Range/Units 03:40 03:40 03:45 WBC (4.8-10.8) K/uL RBC (4.2-5.4) M/uL Hgb (12.0-16.0) g/dL Hct (37-47) % MCV (80-100) fL MCH (25-34) pg MCHC (32-36) g/dL RDW Std Deviation (36.4-46.3) fL RDW Coeff of Eduardo (11.5-14.5) % Plt Count (130-400) K/uL MPV (7.4-10.4) fL Immature Gran % (Auto) % Neut % (Auto) % Lymph % (Auto) % Pacific % (Auto) % Eos % (Auto) % Baso % (Auto) % Neut # (Auto) (1.4-6.5) K/uL Lymph # (Auto) (1.2-3.4) K/uL Pacific # (Auto) (0.11-0.59) K/uL Eos # (Auto) (0-0.5) K/uL Baso # (Auto) (0-0.2) K/uL Immature Gran # (Auto) (0.00-0.02) K/uL PT (9.0-12.0) Seconds INR (0.9-1.1) APTT (21.0-31.0) Seconds PTT Ratio Sodium 144 (136-145) mmol/L Potassium 3.9 (3.5-5.1) mmol/L Chloride 114 H (98-107) mmol/L Carbon Dioxide 24 (21-32) mmol/L Anion Gap 6.0 (3-11) BUN 14 (7-18) mg/dl Creatinine 1.04 (0.6-1.2) mg/dl Est Cr Clr Drug Dosing 93.8 ml/min Est GFR ( Amer) 71.0 Est GFR (Non-Af Amer) 61.3 BUN/Creatinine Ratio 13.6 (10-20) Glucose 116 H (70-99) mg/dl Lactate (0.4-2.0) mmol/L Calcium 7.9 L (8.5-10.1) mg/dl Magnesium 2.0 (1.8-2.4) mg/dl Total Bilirubin 0.2 (0.2-1) mg/dl AST 31 (15-37) U/L ALT 40 (12-78) U/L Alkaline Phosphatase 81 (45-117) U/L Troponin I 0.062 H* (0-0.045) ng/ml Total Protein 7.1 (6.4-8.2) gm/dl Albumin 3.3 L (3.4-5.0) gm/dl Globulin 3.8 (2.5-4.0) gm/dl Albumin/Globulin Ratio 0.9 (0.9-2) Procalcitonin (0-0.5) ng/ml COVID-19 Eval Order [facility]Rsv at [facility] SARS-CoV-2 (PCR) POSITIVE A* (Negative) Influenza Type A (PCR) Negative (Neg) Influenza Type B (PCR) Negative (Neg) RSV (RT-PCR) Negative (Neg) 08/14/20 08/14/20 08/14/20 Range/Units 03:45 03:45 03:45 WBC 4.88 (4.8-10.8) K/uL RBC 4.04 L (4.2-5.4) M/uL Hgb 10.8 L (12.0-16.0) g/dL Hct 33.6 L (37-47) % MCV 83.2 (80-100) fL MCH 26.7 (25-34) pg MCHC 32.1 (32-36) g/dL RDW Std Deviation 49.0 H (36.4-46.3) fL RDW Coeff of Eduardo 16.0 H (11.5-14.5) % Plt Count 243 (130-400) K/uL MPV 9.5 (7.4-10.4) fL Immature Gran % (Auto) 0.4 % Neut % (Auto) 74.0 % Lymph % (Auto) 15.8 % Pacific % (Auto) 9.8 % Eos % (Auto) 0.0 % Baso % (Auto) 0.0 % Neut # (Auto) 3.61 (1.4-6.5) K/uL Lymph # (Auto) 0.77 L (1.2-3.4) K/uL Pacific # (Auto) 0.48 (0.11-0.59) K/uL Eos # (Auto) 0.00 (0-0.5) K/uL Baso # (Auto) 0.00 (0-0.2) K/uL Immature Gran # (Auto) 0.02 (0.00-0.02) K/uL PT 10.3 (9.0-12.0) Seconds INR 1.0 (0.9-1.1) APTT 30.5 (21.0-31.0) Seconds PTT Ratio 1.2 Sodium (136-145) mmol/L Potassium (3.5-5.1) mmol/L Chloride (98-107) mmol/L Carbon Dioxide (21-32) mmol/L Anion Gap (3-11) BUN (7-18) mg/dl Creatinine (0.6-1.2) mg/dl Est Cr Clr Drug Dosing ml/min Est GFR ( Amer) Est GFR (Non-Af Amer) BUN/Creatinine Ratio (10-20) Glucose (70-99) mg/dl Lactate (0.4-2.0) mmol/L Calcium (8.5-10.1) mg/dl Magnesium (1.8-2.4) mg/dl Total Bilirubin (0.2-1) mg/dl AST (15-37) U/L ALT (12-78) U/L Alkaline Phosphatase (45-117) U/L Troponin I (0-0.045) ng/ml Total Protein (6.4-8.2) gm/dl Albumin (3.4-5.0) gm/dl Globulin (2.5-4.0) gm/dl Albumin/Globulin Ratio (0.9-2) Procalcitonin 0.10 (0-0.5) ng/ml COVID-19 Eval Order SARS-CoV-2 (PCR) (Negative) Influenza Type A (PCR) (Neg) Influenza Type B (PCR) (Neg) RSV (RT-PCR) (Neg) 08/14/20 Range/Units 03:55 WBC (4.8-10.8) K/uL RBC (4.2-5.4) M/uL Hgb (12.0-16.0) g/dL Hct (37-47) % MCV (80-100) fL MCH (25-34) pg MCHC (32-36) g/dL RDW Std Deviation (36.4-46.3) fL RDW Coeff of Eduardo (11.5-14.5) % Plt Count (130-400) K/uL MPV (7.4-10.4) fL Immature Gran % (Auto) % Neut % (Auto) % Lymph % (Auto) % Pacific % (Auto) % Eos % (Auto) % Baso % (Auto) % Neut # (Auto) (1.4-6.5) K/uL Lymph # (Auto) (1.2-3.4) K/uL Pacific # (Auto) (0.11-0.59) K/uL Eos # (Auto) (0-0.5) K/uL Baso # (Auto) (0-0.2) K/uL Immature Gran # (Auto) (0.00-0.02) K/uL PT (9.0-12.0) Seconds INR (0.9-1.1) APTT (21.0-31.0) Seconds PTT Ratio Sodium (136-145) mmol/L Potassium (3.5-5.1) mmol/L Chloride (98-107) mmol/L Carbon Dioxide (21-32) mmol/L Anion Gap (3-11) BUN (7-18) mg/dl Creatinine (0.6-1.2) mg/dl Est Cr Clr Drug Dosing ml/min Est GFR ( Amer) Est GFR (Non-Af Amer) BUN/Creatinine Ratio (10-20) Glucose (70-99) mg/dl Lactate 1.3 (0.4-2.0) mmol/L Calcium (8.5-10.1) mg/dl Magnesium (1.8-2.4) mg/dl Total Bilirubin (0.2-1) mg/dl AST (15-37) U/L ALT (12-78) U/L Alkaline Phosphatase (45-117) U/L Troponin I (0-0.045) ng/ml Total Protein (6.4-8.2) gm/dl Albumin (3.4-5.0) gm/dl Globulin (2.5-4.0) gm/dl Albumin/Globulin Ratio (0.9-2) Procalcitonin (0-0.5) ng/ml COVID-19 Eval Order SARS-CoV-2 (PCR) (Negative) Influenza Type A (PCR) (Neg) Influenza Type B (PCR) (Neg) RSV (RT-PCR) (Neg) Imaging Data My Impression: X-ray: I interpreted the following studies. Chest: A single view study of the chest was reviewed and was negative for cardiomegaly, or wide mediastinum. Bilateral patchy infiltrates noted. Radiologist's Impression: Chest X-Ray 08/14/20 03:19 XR chest 1V portable CLINICAL HISTORY: SEPSIS COMPARISON STUDY: 02/27/2020 FINDINGS: The cardiac and mediastinal contours remain stable. There are multifocal pulmonary airspace opacities suspicious for multifocal pneumonia. There are no large pleural effusions. There is no pneumothorax.[ IMPRESSION: Multifocal airspace opacities suspicious for multifocal pneumonia ACT 112: Negative or not required by law. Electronically signed by: Jeff Kimbrough M.D. 08/14/2020 6:53 AM ECG Data Attestation: I personally reviewed and interpreted this ECG as follows: Indication: + SOB/dyspnea Rate (beats per minute): 72 Rhythm: + normal sinus ECG Intervals/blocks: + Normal QRS and + Normal QT ECG Armstrong: + Normal ECG ST segments: + Normal ST segments ECG Findings: + Q waves (V3, III) MDM Narrative This is an ill-appearing 55-year-old female who presents via EMS with significant increased work of breathing and a prior history of asthma. Patient does have nebulizer treatments at home which she was using though she noticed increased cough in the preceding days. Patient found to be tachycardic, tachypneic, and febrile. Given respiratory symptoms, concern for possible Covid. Patient swab for this as well. Patient's chest x-ray suggestive of Covid, and his labs returned they were otherwise reassuring. Troponin noted to be mildly elevated although I suspect this is demand ischemia from her increased work of breathing and hypoxia that was initially noted by EMS. Patient had been placed On nasal cannula by EMS, and was transitioned to high flow nasal cannula here following a DuoNeb treatment. Patient did report feeling improved, and her work of breathing was improved however she was still mildly tachypneic in the low 20s. I do not suspect primary cardiac etiology. No significant leukocytosis, elevated lactic acid or pro calcitonin.Patient was started on dexamethasone, given additional DuoNeb's as well as IV magnesium to help with her respiratory distress. I suspect this is all related to her positive coronavirus test. Case discussed with hospitalist for additional evaluation and management. Patient otherwise remained hemodynamically stable in the emergency room with improved respiratory rate, improved heart rate, and decreased work of breathing. An order was placed for continuous cardiac monitoring. The monitor shows a rate of 103__ with _sinus tachycardia_ rhythm. Impression & Plan Acute dyspnea, Respiratory failure with hypoxia, COVID-19, Obesity, Anemia Discharge Plan Visit Data Chief Complaint: Respiratory Problems Stated Complaint: RESPIRATORY DIFFICULTY ED Provider: Sabra Miller Discharge Problem: Acute dyspnea, Respiratory failure with hypoxia, COVID-19, Obesity, Anemia Patient Disposition: Admitted As Inpatient Discharge Instructions Interventions: ED Discharge Assessment Last Done: 08/14/20 07:33 Discharge Problem: Respiratory failure with hypoxia Qualifiers: Chronicity: acute Qualified Code(s): J96.01 - Acute respiratory failure with hypoxia Obesity Qualifiers: Obesity type: unspecified obesity type Obesity classification: unspecified obesity classification Serious obesity comorbidity presence: unspecified whether serious comorbidity present Qualified Code(s): E66.9 - Obesity, unspecified Anemia Qualifiers: Anemia type: unspecified type Qualified Code(s): D64.9 - Anemia, unspecified
[2020-08-14 04:05] LABS: Hematocrit (blood only) 33.6 % (37-47); Hemoglobin 10.8 g/dL (12.0-16.0); Immature Granulocytes # (auto) 0.02 K/uL (0.00-0.02); Immature Granulocytes % (auto) 0.4 %; Lymphocytes # (auto) 0.77 K/uL (1.2-3.4); Lymphocytes % (auto) 15.8 %; Mean Corpuscular Hemoglobin 26.7 pg (25-34); Mean Corpuscular Hgb Conc 32.1 g/dL (32-36); Mean Corpuscular Volume 83.2 fL (80-100); Mean Platelet Volume 9.5 fL (7.4-10.4); Monocytes # (auto) 0.48 K/uL (0.11-0.59); Monocytes % (auto) 9.8 %; Neutrophils # (auto) 3.61 K/uL (1.4-6.5); Platelet Count 243 K/uL (130-400); Red Blood Count 4.04 M/uL (4.2-5.4); White Blood Count 4.88 K/uL (4.8-10.8)
[2020-08-14] MEDS ORDERED: DEXAMETHASONE SOD INJ 4 MG/ML VIAL IV STA (04:10)
[2020-08-14 04:14] LABS: Partial Thromboplastin Ratio 1.2; Partial Thromboplastin Time 30.5 Seconds (21.0-31.0); Prothrombin Time 10.3 Seconds (9.0-12.0)
[2020-08-14 04:29] LABS: Albumin Level 3.3 gm/dl (3.4-5.0); BUN Creatinine Ratio 13.6 (10-20); Calcium 7.9 mg/dl (8.5-10.1); Creatinine Clr Calc Pharmacy 93.8 ml/min; Est GFR (Non-African American) 61.3; Potassium 3.9 mmol/L (3.5-5.1)
[2020-08-14 04:43] LABS: Albumin Globulin Ratio 0.9 (0.9-2); Bilirubin,Total 0.2 mg/dl (0.2-1); Globulin 3.8 gm/dl (2.5-4.0); Total Protein 7.1 gm/dl (6.4-8.2); Troponin I 0.062 ng/ml (0-0.045)
[2020-08-14 04:43] LABS: Influenza A virus by PCR Negative (Neg); Influenza B virus by PCR Negative (Neg); RSV by PCR Negative (Neg)
[2020-08-14 04:59] LABS: SARS CoV2 RNA(COVID-19) InHosp POSITIVE (Negative)
--- NOTE | 2020-08-14 06:54 | XRay Report ---
XR chest 1V portable CLINICAL HISTORY: SEPSIS COMPARISON STUDY: 02/27/2020 FINDINGS: The cardiac and mediastinal contours remain stable. There are multifocal pulmonary airspace opacities suspicious for multifocal pneumonia. There are no large pleural effusions. There is no pne umothorax.[ IMPRESSION: Multifocal airspace opacities suspicious for multifocal pneumonia ACT 112: Negative or not required by law. Electronically signed by: Jeff Kimbrough M.D. 08/14/2020 6:53 AM
[2020-08-14] MEDS ORDERED: diphenhydrAMINE Capsule 25 MG CAP PO PRN (08:28)
[2020-08-14] MEDS ORDERED: NITROGLYCERIN SL 0.4 MG/TAB TAB SL PRN (08:28)
[2020-08-14] MEDS ORDERED: ONDANSETRON INJ 2 MG/ML 2 ML VIAL IV PRN (08:28)
[2020-08-14] MEDS: FLUTICASONE PROPIONATE NA SPR 16 GM BTL SCH ×2 (09:32→21:14)
[2020-08-14] MEDS: SERTRALINE HCL 100 MG TABLET PO SCH (09:33)
[2020-08-14] MEDS: METOPROLOL SUCC 25MG EXT REL TAB PO SCH ×2 (09:33→21:13)
[2020-08-14] MEDS: FUROSEMIDE 40 MG TAB PO SCH (09:34)
[2020-08-14] MEDS: CALCIUM CARBONATE 1250MG TAB PO SCH (09:34)
[2020-08-14] MEDS: APIXABAN 5 MG TABLET PO SCH ×2 (09:34→21:14)
[2020-08-14] MEDS: FOLIC ACID 1 MG TAB PO SCH (09:34)
[2020-08-14] MEDS: LOSARTAN POTASSIUM 50 MG TAB PO SCH (09:34)
[2020-08-14] MEDS: MULTIVITAMIN TAB PO SCH (09:34)
[2020-08-14] MEDS: SODIUM CHLORIDE 0.9% 10ML FLUSH IV SCH (09:45)
[2020-08-14 09:47] LABS: Appearance Urine Clear (Clear); Bacteria Urine Automated Negative (Negative); Bilirubin Urine Negative (Negative); Blood Urine Negative (Negative); Cast Urine Automated 0 /lpf (0-5); Color Urine Yellow; Epithelial Cell Urine Auto >30 /lpf (0-5); Glucose Urine UA Negative (Negative); Ketones Urine Negative (Negative); Leukocyte Esterase Urine Negative (Negative); Nitrite Urine Negative (Negative); Protein Urine 1+ (Negative); RBC Urine Automated 0-4 /hpf (0-4); Specific Gravity Urine 1.027 (1.000-1.030); Urobilinogen Urine Negative (Negative)
--- NOTE | 2020-08-14 09:59 | History and Physical Report ---
DATE OF ADMISSION: 08/14/2020 CHIEF COMPLAINT: Shortness of breath. HISTORY OF PRESENT ILLNESS: This is a 55-year-old female with past medical history significant for hyperlipidemia, presence of IVC filter, chronic venous insufficiency, hypertension, stasis of both legs, venous stasis ulcers of both lower extremities, antiphospholipid antibody syndrome, thrombocytopenia, SLE, lymphedema, history of pulmonary embolism, umbilical hernia, history of DVT, history of ITP, history of depression, who was brought in for shortness of breath and found to have COVID pneumonia. The patient lives in an apartment, but currently since last 2 weeks they are living in a hotel room because waiting for a new appointment and since last 2 days, she was getting short of breath, cough as per the patient and she has some mild headache and couple of episodes of diarrhea yesterday. She did not feel that she had a fever. Appetite is okay. Has some runny nose. Denies any sore throat, no earache, no difficulty swallowing, no chest pain. Somewhat nauseous, mild abdominal pain. Normal bladder movements. No blood in stools. No hematuria. Has chronic lower extremity ulcers and she follows with wound care clinic.Currently saturating ok on high flow and speaking in full sentences. ALLERGIES: HEPARIN HIT/ITP FROM LAST ADMISSION, VANCOMYCIN, DOXYCYCLINE, POLYMYXIN B, PROCAINE-CONTAINING PRODUCTS, TETRACYCLINE, AMLODIPINE, BACITRACIN, BACTRIM. PAST MEDICAL HISTORY: As mentioned above. PAST SURGICAL HISTORY: , colonoscopy, exploratory laparotomy, inferior vena cava filter placement, total abdominal hysterectomy with removal of tubes. MEDICATIONS: The patient is on Tylenol 1000 mg p.o. q.8 hours p.r.n., apixaban 5 mg p.o. b.i.d., belimumab infusions q.4 weeks, calcium carbonate tablet a.m., diphenhydramine 25 mg p.o. q.6 hours p.r.n., Flonase 2 sprays intranasal b.i.d. p.r.n., folic acid 1 mg p.o. daily, Lasix 40 mg p.o. a.m., hydroxychloroquine 400 mg p.o. p.m., losartan 100 mg p.o. a.m., metoprolol succinate 25 mg p.o. b.i.d., multivitamins with minerals 1 tablet p.o. a.m., prednisone 5 mg p.o. a.m., sertraline 100 mg p.o. a.m., trazodone 100 mg p.o. at bedtime. FAMILY HISTORY: Significant for mother had colon cancer and DVT. SOCIAL HISTORY: Single, lives with a friend. No smoking, no alcohol, no drug use. REVIEW OF SYMPTOMS: As per HPI. Rest of review of systems negative. PHYSICAL EXAMINATION: GENERAL: The patient is morbidly obese, not in acute distress. VITAL SIGNS: Temperature 38.1, pulse 84, respiratory rate 21, blood pressure 150/79, oxygen 98% on 40% FIO2 high-flow oxygen. HEENT: Pupils equal, round, reactive to light. Oral mucosa somewhat dry. NECK: No JVD, no neck masses seen. CARDIOVASCULAR: S1, S2, regular rate and rhythm, no murmur, no gallop. RESPIRATORY SYSTEM: Normal AP diameter. No accessory muscle use. Mild bibasilar crackles. No wheezing. ABDOMEN: Soft, bowel sounds present, nontender. No distention. CENTRAL NERVOUS SYSTEM: Cranial nerves II-XII grossly intact. Nonfocal. EXTREMITIES: Bilateral lower extremity wrapped in dressings. LABORATORY DATA: WBC 4.8, hemoglobin 10.8, hematocrit 33.6, platelets 243. PT 10.3, INR 1, APTT 30.5. Sodium 144, potassium 3.9, chloride 114, CO2 of 24, BUN 14, creatinine 1.04, serum glucose 116, lactate 1.3, calcium 7.9, magnesium 2, total bilirubin 0.2, AST 31, ALT 40, alkaline phosphatase 81. Troponin I 0.06. Procalcitonin 0.1. SARS-CoV-2 PCR negative. Influenza A and B PCR negative, RSV PCR negative. IMAGING DATA: Chest x-ray, bilateral infiltrates. ASSESSMENT AND PLAN: This is a 55-year-old female who presents with shortness of breath, found to have COVID pneumonia. 1. COVID pneumonia: The patient is currently on high-flow oxygen,meets criteria for steroids and remdesivir. We will continue with remdesivir and steroids. Can consider plasma. Closely monitor in the tele floor. Follow the remdesivir laboratories. 2. History of systemic lupus erythematosus and antiphospholipid antibody syndrome: Holding Plaquenil and prednisone as the patient is getting Decadron. The patient is also on IV Benlysta infusions q.4 weeks. 3. History of deep venous thrombosis and history of pulmonary embolism: On Eliquis. 4. History of depression: On Zoloft. 5. History of lower extremity venous stasis ulcers: Currently under wraps. not able to check them currently. We will consult wound care while the patient in the hospital. 6. History of hypertension: Continue Toprol-XL, losartan. We will monitor the blood pressure. 7. History of thrombocytopenia, possible idiopathic thrombocytopenic purpura: Currently platelets are okay. 8.Hx of systolic and diastolic chf. Ef 40-45%.On toprol xl, losartan and lasix. Monitor for volume overload. 9.. Deep venous thrombosis prophylaxis: On Eliquis. DISPOSITION: Closely monitor in the tele floor. Level 1, full code. MTDD
[2020-08-14] MEDS ORDERED: REMDESIVIR 200 MG in SODIUM CHLORIDE 0.9% 210 ML IV ONE (10:00)
--- NOTE | 2020-08-14 14:17 | Electrocardiogram Report ---
Test Reason : Blood Pressure : / mmHG Vent. Rate : 110 BPM Atrial Rate : 110 BPM P-R Int : 160 ms QRS Dur : 098 ms QT Int : 366 ms P-R-T Axes : 043 -03 028 degrees QTc Int : 495 ms Poor data quality, interpretation may be adversely affected Sinus tachycardia Possible Anterior infarct (cited on or before 01-NOV-2019) Abnormal ECG When compared with ECG of 23-FEB-2020 13:28, Premature ventricular complexes are no longer Present Questionable change in initial forces of Lateral leads Confirmed by Lior Yang ([id number]) on 08/14/2020 2:17:03 PM Referred By: REFERRED SELF Confirmed By:Lior Yang
--- NOTE | 2020-08-14 14:40 | Electrocardiogram Report ---
Test Reason : Blood Pressure : / mmHG Vent. Rate : 072 BPM Atrial Rate : 072 BPM P-R Int : 164 ms QRS Dur : 104 ms QT Int : 438 ms P-R-T Axes : 045 017 029 degrees QTc Int : 479 ms Normal sinus rhythm Cannot rule out Anterior infarct (cited on or before 01-NOV-2019) Abnormal ECG When compared with ECG of 23-FEB-2020 13:28, Vent. rate has decreased BY 58 BPM Confirmed by Lior Yang ([id number]) on 08/14/2020 2:39:56 PM Referred By: REFERRED SELF Confirmed By:Lior Yang
--- NOTE | 2020-08-14 15:24 | Hospitalist Progress Note ---
Date of Service August 14, 2020 Assessment & Plan Admission and Anticipated Discharge Date Admission Date: August 14, 2020 Results & Data Results & Data ([facility] [place]) Vital Signs (Past 12 Hours) Vital Signs Temp Pulse Pulse Resp BP BP Pulse Ox 08/14/20 15:08 86 08/14/20 11:15 37.1 C 74 14 125/73 96 08/14/20 08:47 36.9 C 71 20 140/87 96 08/14/20 08:28 08/14/20 08:00 78 08/14/20 07:00 82 22 153/79 H 98 08/14/20 06:00 84 21 155/79 H 98 08/14/20 05:30 86 24 163/79 H 97 08/14/20 05:00 92 H 25 H 156/82 H 96 08/14/20 04:45 89 23 97 08/14/20 04:35 38.1 C H 91 H 24 98 08/14/20 04:30 94 H 19 157/77 H 98 08/14/20 04:15 101 H 26 H 97 08/14/20 04:02 104 H 27 H 168/97 H 97 08/14/20 04:00 100 H 23 98 08/14/20 03:50 14 97 08/14/20 03:45 108 H 25 H 97 08/14/20 03:41 111 H 22 96 08/14/20 03:40 106 H 20 97 08/14/20 03:39 109 H 25 H 97 08/14/20 03:38 24 96 08/14/20 03:30 114 H 19 98 08/14/20 03:29 32 H 98 Pulse Ox 08/14/20 15:08 08/14/20 11:15 08/14/20 08:47 08/14/20 08:28 96 08/14/20 08:00 08/14/20 07:00 08/14/20 06:00 08/14/20 05:30 08/14/20 05:00 08/14/20 04:45 08/14/20 04:35 08/14/20 04:30 08/14/20 04:15 08/14/20 04:02 08/14/20 04:00 08/14/20 03:50 08/14/20 03:45 08/14/20 03:41 08/14/20 03:40 08/14/20 03:39 08/14/20 03:38 08/14/20 03:30 08/14/20 03:29
--- NOTE | 2020-08-14 20:19 | Communication Note ---
Date of Service: August 14, 2020 pt admitted earlier with COVID 19 pneumonia , please refer to H&P for detail 55 yo F admitted with cough , acute hypoxemic resp failure due to COVID 19 pn eumonia COVID 19 positive , Cxray shows bilateral infiltrate pt started on IV dexamethasone, IV remdesivir for moderate to severe COVID 19 pneumonia History of systemic lupus erythematosus and antiphospholipid antibody syndrome: Holding Plaquenil is setting of acute infection cont on IV decadrone Hx of DVT /PE : on eliquis /continued monitor closely in PCU /tele encourage for prone ventilation respiratory status improved ordered for CT chest with contrast in AM for better assessment of lung infiltrate consider pulmonology consult Lexi Pavon MD
[2020-08-14] MEDS: traZODone HCL 100 MG TAB PO SCH (21:14)
[2020-08-14] MEDS: ACETAMINOPHEN 325 MG TAB PO PRN (21:15)
[2020-08-14] MEDS: guaiFENesin SUGAR FREE 200 MG/10 ML UDC PO PRN (21:16)
[2020-08-14] MEDS: SODIUM CHLORIDE 0.65% NA SOLN 45 ML (OCEAN) SCH (21:16)
[2020-08-15 07:34] LABS: Basophils # (auto) 0.01 K/uL (0-0.2); Basophils % (auto) 0.2 %; Hematocrit (blood only) 33.4 % (37-47); Hemoglobin 10.4 g/dL (12.0-16.0); Immature Granulocytes # (auto) 0.02 K/uL (0.00-0.02); Immature Granulocytes % (auto) 0.4 %; Lymphocytes # (auto) 0.95 K/uL (1.2-3.4); Lymphocytes % (auto) 20.7 %; Mean Corpuscular Hemoglobin 26.1 pg (25-34); Mean Corpuscular Hgb Conc 31.1 g/dL (32-36); Mean Corpuscular Volume 83.7 fL (80-100); Monocytes # (auto) 0.84 K/uL (0.11-0.59); Monocytes % (auto) 18.3 %; Neutrophils # (auto) 2.78 K/uL (1.4-6.5); Neutrophils % (auto) 60.4 %; Platelet Count 231 K/uL (130-400); RDW Coefficient of Variation 15.8 % (11.5-14.5); Red Blood Count 3.99 M/uL (4.2-5.4)
[2020-08-15 07:57] LABS: Alanine Aminotransferase 30 U/L (12-78); Albumin Level 3.1 gm/dl (3.4-5.0); Aspartate Aminotransferase 21 U/L (15-37); BUN Creatinine Ratio 23.8 (10-20); Bilirubin Direct < 0.1 mg/dl (0-0.2); Blood Urea Nitrogen 20 mg/dl (7-18); Calcium 8.2 mg/dl (8.5-10.1); Carbon Dioxide 23 mmol/L (21-32); Chloride 112 mmol/L (98-107); Creatinine Clr Calc Pharmacy 119.2 ml/min; Est GFR (African American) 94.7; Est GFR (Non-African American) 81.7; Glucose 83 mg/dl (70-99); Magnesium 2.2 mg/dl (1.8-2.4); Potassium 3.6 mmol/L (3.5-5.1); Sodium 142 mmol/L (136-145)
[2020-08-15 08:03] LABS: Alkaline Phosphatase 63 U/L (45-117); Bilirubin,Total 0.3 mg/dl (0.2-1); Ferritin 95.8 ng/ml (8-388); Total Protein 6.4 gm/dl (6.4-8.2); Troponin I < 0.015 ng/ml (0-0.045)
[2020-08-15 08:04] LABS: D Dimer 600 ug/L FEU (0-500)
[2020-08-15] MEDS: ACETAMINOPHEN 325 MG TAB PO PRN ×2 (08:22→20:34)
[2020-08-15] MEDS: dexAMETHasone 6 MG in SYRINGE 0 ML IV SCH (08:23)
[2020-08-15] MEDS: LOSARTAN POTASSIUM 50 MG TAB PO SCH (08:23)
[2020-08-15] MEDS: APIXABAN 5 MG TABLET PO SCH ×2 (08:24→20:38)
[2020-08-15] MEDS: FUROSEMIDE 40 MG TAB PO SCH (08:24)
[2020-08-15] MEDS: FOLIC ACID 1 MG TAB PO SCH (08:24)
[2020-08-15] MEDS: FLUTICASONE PROPIONATE NA SPR 16 GM BTL SCH ×2 (08:24→20:39)
[2020-08-15] MEDS: CALCIUM CARBONATE 1250MG TAB PO SCH (08:25)
[2020-08-15] MEDS: MULTIVITAMIN TAB PO SCH (08:25)
[2020-08-15] MEDS: METOPROLOL SUCC 25MG EXT REL TAB PO SCH ×2 (08:25→20:38)
[2020-08-15] MEDS: SERTRALINE HCL 100 MG TABLET PO SCH (08:26)
[2020-08-15] MEDS: guaiFENesin SUGAR FREE 200 MG/10 ML UDC PO PRN ×2 (08:26→20:35)
[2020-08-15] MEDS ORDERED: OPTIRAY 320 125ml IV ONE (09:16)
--- NOTE | 2020-08-15 09:34 | CT Scan Report ---
CT OF THE CHEST WITH IV CONTRAST CLINICAL HISTORY: COVID 19 pneumonia SEPSIS, ABNORMAL CHEST X-RAY COMPARISON STUDY: 12/11/2018, chest x-ray dated 08/14/2020 TECHNIQUE: Following the IV administration of 125 mL of Optiray-320, CT of the thorax was performed from the thoracic inlet to the lung bases. Images are reviewed in the axial, sagittal, and coronal pl anes. IV contrast was administered without complication. A dose lowering technique was utilized adhe ring to the principles of ALARA. CT DOSE: 627.63 mGycm FINDINGS: Thyroid: Imaged portions of the thyroid gland are normal in appearance. Thoracic aorta: The thoracic aorta is normal in course and caliber, noting standard 3-vessel arch keren yang. No aneurysm or dissection is seen. Pulmonary vasculature: The pulmonary trunk is normal in caliber. There are no central filling defects identified to suggest pulmonary embolus. Note that this examination was not protocoled for the evalu ation of pulmonary emboli. HEART: The heart is borderline enlarged. There is no significant pericardial fluid. Lungs and pleural spaces: There is trace pleural fluid. There are multifocal groundglass pulmonary op acities. The findings are typical of Covid 19 pneumonia. Mediastinum: Borderline enlarged mediastinal lymph nodes are likely reactive. Anna: Borderline enlarged left hilar lymph nodes, are likely reactive. Axilla: There is no evidence of pathologic axillary lymphadenopathy Upper abdomen: There is hepatic steatosis. Skeletal structures: There are no lytic or blastic osseous lesions. IMPRESSION: 1. Multifocal groundglass pulmonary opacities. The findings are consistent with although not specific for Covid 19 pneumonia 2. Hepatic steatosis ACT 112: Negative or not required by law. Electronically signed by: Jeff Kimbrough M.D. 08/15/2020 9:33 AM
--- NOTE | 2020-08-15 12:30 | Hospitalist Progress Note ---
Date of Service August 15, 2020 Assessment & Plan (1) Acute hypoxemic respiratory failure: (2) Pneumonia due to COVID-19 virus: Breathing has improved on current therapy. Cont remdesivir and dexamethasone daily monitoring for improvement and wean oxygen as tolerated. (3) Hypercoagulable state: h/o antiphospholipid antibody syndrome with a h/o DVTin the past. Cont Eliquis BID per home regimen. Noted that (4) Anemia: slightly lower than baseline. Check iron studies. No overt bleeding present at this time. (5) Venous stasis ulcers of both lower extremities: Came in with wraps that were removed and rewrapped by wound care today. New semipermanent wraps will need to be replaced prior to discharge home. (6) HTN (hypertension): controlled, cont current home antihypertensive regimen including losartan 100mg daily. (7) SLE (systemic lupus erythematosus): h/o SLE with arthritis. She also has a h/o ITP treated with rituximab in 2013. She had a h/o DVT and PE and is s/p IVC filter. She was on coumadin until 2016 when she was changed to Eliquis because of difficulty maintaining in the treatment range INR. At the time Eliquis was initiated by her still operator her BMI was 47. She is notably obese, which may lead to decreased drug absorption per some recommendations. As this was recommended by her still operator, would continue her on this for now. Her daily low dose prednisone was held while giving decadron. (8) Morbid obesity: Lifestyle changes recommended for overall better health. (9) DVT prophylaxis: Eliquis Full Code Dispo-home when off oxygen and symptoms are improved. Lilian Chacon DO [facility] Hospitalist Admission and Anticipated Discharge Date Admission Date: August 14, 2020 Subjective 55 yo F with obesity admitted with covid pneumonia she reports that her breathing is better than yesterday she is coughing and reports her cough medication made her feel better overnight she is eating well she reports some loose stool but has had an improvement from margaux diarrhea Review of Systems Review of Systems: All systems reviewed & are unremarkable except as noted in Subjective Physical Exam Physical Exam: CONSTITUTIONAL: obese, vitals as above, generally well- appearing EYES: normal conjunctivae, no scleral icterus ENT: external ear and nose normal, oropharynx clear, MMM, nasal canula in place. NECK: trachea midline RESPIRATORY: clear to auscultation bilaterally, no crackles, rales or wheezes, normal respiratory effort CARDIOVASCULAR: regular rate and rhythm, S1 and 2 heard without murmurs, gallops or rubs, no JVD, no peripheral edema GASTROINTESTINAL: soft, nontender, protuberant but nondistended, no guarding MUSCULOSKELETAL: strength 5/5 throughout, head is normocephalic and atraumatic SKIN: warm and dry NEUROLOGIC: CN 2-12 grossly intact, normal cognition, normal speech, no gross focal deficits. PSYCHIATRIC: alert cooperative and oriented to person, place and time. Results & Data Results & Data ([facility]) Vital Signs (Past 12 Hours) Vital Signs Temp Pulse Resp BP Pulse Ox Pulse Ox 08/15/20 10:48 36.7 C 71 21 147/85 H 96 08/15/20 07:44 36.8 C 77 21 120/72 93 08/15/20 04:25 36.5 C 70 17 113/65 97 08/15/20 03:19 96 Laboratory Results Short CBC 08/15/20 Range/Units 05:30 WBC 4.60 L (4.8-10.8) K/uL Hgb 10.4 L (12.0-16.0) g/dL Hct 33.4 L (37-47) % Plt Count 231 (130-400) K/uL BMP 08/15/20 05:30 Sodium 142 Potassium 3.6 Chloride 112 H Carbon Dioxide 23 BUN 20 H Creatinine 0.82 Glucose 83 Calcium 8.2 L Cardiac Enzymes 08/14/20 08/15/20 Range/Units 15:11 05:30 Troponin I 0.021 < 0.015 (0-0.045) ng/ml Liver Function 08/15/20 Range/Units 05:30 Total Bilirubin 0.3 (0.2-1) mg/dl Direct Bilirubin < 0.1 (0-0.2) mg/dl AST 21 (15-37) U/L ALT 30 (12-78) U/L Alkaline Phosphatase 63 (45-117) U/L Albumin 3.1 L (3.4-5.0) gm/dl Medications Administered Current Inpatient Medications Acetaminophen (Acetaminophen 325 Mg Tab) 650 mg PO Q4H PRN PRN Reason: Pain or Fever Stop: 09/13/20 08:27 Last Admin: 08/15/20 08:22 Dose: 650 mg Documented by: Apixaban (Apixaban 5 Mg Tablet) 5 mg PO BID [facility] Stop: 09/13/20 08:59 Last Admin: 08/15/20 08:24 Dose: 5 mg Documented by: Calcium Carbonate (Calcium Carbonate 1250mg Tab) 1,250 mg PO QAM [facility] Stop: 09/13/20 08:59 Last Admin: 08/15/20 08:25 Dose: 1,250 mg Documented by: Diphenhydramine HCl (Diphenhydramine Capsule 25 Mg Cap) 25 mg PO Q6H PRN PRN Reason: itching Stop: 09/13/20 08:27 Last Admin: 08/14/20 21:22 Dose: 25 mg Documented by: Fluticasone Propionate (Fluticasone Propionate Na Spr 16 Gm Btl) 2 sprays NA BID [facility] Stop: 09/13/20 08:59 Last Admin: 08/15/20 08:24 Dose: 2 sprays Documented by: Folic Acid (Folic Acid 1 Mg Tab) 1 mg PO QAM [facility] Stop: 09/13/20 08:59 Last Admin: 08/15/20 08:24 Dose: 1 mg Documented by: Furosemide (Furosemide 40 Mg Tab) 40 mg PO QAM [facility] Stop: 09/13/20 08:59 Last Admin: 08/15/20 08:24 Dose: 40 mg Documented by: Guaifenesin (Guaifenesin Sugar Free 200 Mg/10 Ml Udc) 200 mg PO Q6H PRN PRN Reason: Cough Stop: 09/13/20 19:29 Last Admin: 08/15/20 08:26 Dose: 200 mg Documented by: Remdesivir 100 mg/ Sodium (Chloride) 250 mls @ 250 mls/hr IV Q24H [facility]; Protocol Stop: 08/18/20 12:59 Dexamethasone 6 mg/ Syringe 1.5 mls @ 1 mls/min IV DAILY [facility] Stop: 08/25/20 08:59 Last Admin: 08/15/20 08:23 Dose: 1 mls/min Documented by: Losartan Potassium (Losartan Potassium 50 Mg Tab) 100 mg PO QAM [facility] Stop: 09/13/20 08:59 Last Admin: 08/15/20 08:23 Dose: 100 mg Documented by: Metoprolol Succinate (Metoprolol Succ 25mg Ext Rel Tab) 25 mg PO BID [facility] Stop: 09/13/20 08:59 Last Admin: 08/15/20 08:25 Dose: 25 mg Documented by: Multivitamins (Multivitamin Tab) 1 tab PO QAM [facility] Stop: 09/13/20 08:59 Last Admin: 08/15/20 08:25 Dose: 1 tab Documented by: Nitroglycerin (Nitroglycerin Sl 0.4 Mg/Tab Tab) 0.4 mg SL UD PRN PRN Reason: Chest Pain Stop: 09/13/20 08:27 Ondansetron HCl (Ondansetron Inj 2 Mg/Ml 2 Ml Vial) 4 mg IV Q6H PRN PRN Reason: Nausea Stop: 09/13/20 08:27 Sertraline HCl (Sertraline Hcl 100 Mg Tablet) [facility] Stop: 09/13/20 08:59 Last Admin: 08/15/20 08:26 Dose: 100 mg Documented by: Sodium Chloride (Sodium Chloride 0.9% 10ml Flush) 30 ml IV DAILY@1200 [facility] Stop: 08/18/20 12:01 Last Admin: 08/14/20 09:45 Dose: 30 ml Documented by: Sodium Chloride (Sodium Chloride 0.65% Na Soln 45 Ml (Sunol)) 2 sprays NA QPM [facility] Stop: 09/13/20 20:59 Last Admin: 08/14/20 21:16 Dose: Not Given Documented by: Trazodone HCl (Trazodone Hcl 100 Mg Tab) 100 mg PO HS [facility] Stop: 09/13/20 20:59 Last Admin: 08/14/20 21:14 Dose: 100 mg Documented by: (1) Anemia Anemia type: unspecified type Qualified Code(s): D64.9 - Anemia, unspecified
[2020-08-15] MEDS: REMDESIVIR 100 MG in SODIUM CHLORIDE 0.9% 230 ML IV SCH (12:54)
[2020-08-15] MEDS: SODIUM CHLORIDE 0.9% 10ML FLUSH IV SCH (12:54)
[2020-08-15] MEDS: traZODone HCL 100 MG TAB PO SCH (20:38)
[2020-08-15] MEDS: SODIUM CHLORIDE 0.65% NA SOLN 45 ML (OCEAN) SCH (20:39)
[2020-08-16 06:31] LABS: Hematocrit (blood only) 34.8 % (37-47); Hemoglobin 10.7 g/dL (12.0-16.0); Mean Corpuscular Hemoglobin 25.5 pg (25-34); Mean Corpuscular Hgb Conc 30.7 g/dL (32-36); Mean Corpuscular Volume 83.1 fL (80-100); Mean Platelet Volume 9.8 fL (7.4-10.4); Platelet Count 315 K/uL (130-400); RDW Coefficient of Variation 15.6 % (11.5-14.5); RDW Standard Deviation 47.7 fL (36.4-46.3); Red Blood Count 4.19 M/uL (4.2-5.4); White Blood Count 4.96 K/uL (4.8-10.8)
[2020-08-16 07:01] LABS: BUN Creatinine Ratio 21.3 (10-20); Calcium 8.5 mg/dl (8.5-10.1); Creatinine Clr Calc Pharmacy 104.2 ml/min; Est GFR (African American) 80.3; Est GFR (Non-African American) 69.3; Magnesium 2.2 mg/dl (1.8-2.4); Potassium 3.7 mmol/L (3.5-5.1)
[2020-08-16 07:05] LABS: C Reactive Protein 3.01 mg/dl (0-0.29); Ferritin 122.7 ng/ml (8-388); Phosphorus 3.4 mg/dl (2.5-4.9)
[2020-08-16] MEDS: FLUTICASONE PROPIONATE NA SPR 16 GM BTL SCH ×2 (07:52→20:02)
[2020-08-16] MEDS: LOSARTAN POTASSIUM 50 MG TAB PO SCH (07:52)
[2020-08-16] MEDS: FOLIC ACID 1 MG TAB PO SCH (07:52)
[2020-08-16] MEDS: METOPROLOL SUCC 25MG EXT REL TAB PO SCH ×2 (07:53→20:01)
[2020-08-16] MEDS: SERTRALINE HCL 100 MG TABLET PO SCH (07:53)
[2020-08-16] MEDS: FUROSEMIDE 40 MG TAB PO SCH (07:53)
[2020-08-16] MEDS: APIXABAN 5 MG TABLET PO SCH ×2 (07:53→20:01)
[2020-08-16] MEDS: CALCIUM CARBONATE 1250MG TAB PO SCH (07:53)
[2020-08-16] MEDS: MULTIVITAMIN TAB PO SCH (07:53)
[2020-08-16] MEDS: ACETAMINOPHEN 325 MG TAB PO PRN (08:01)
[2020-08-16] MEDS: dexAMETHasone 6 MG in SYRINGE 0 ML IV SCH (08:52)
[2020-08-16] MEDS: REMDESIVIR 100 MG in SODIUM CHLORIDE 0.9% 230 ML IV SCH (12:00)
[2020-08-16] MEDS: SODIUM CHLORIDE 0.9% 10ML FLUSH IV SCH (12:01)
[2020-08-16] MEDS: guaiFENesin SUGAR FREE 200 MG/10 ML UDC PO PRN (12:56)
--- NOTE | 2020-08-16 18:48 | Hospitalist Progress Note ---
Date of Service August 16, 2020 Assessment & Plan (1) Acute hypoxemic respiratory failure: (2) Pneumonia due to COVID-19 virus: Breathing has improved on current therapy. Hypoxia has resolved. Cont remdesivir and dexamethasone daily monitoring for improvement. Plan for two- step test and discharge home in a.m. (3) Hypercoagulable state: h/o antiphospholipid antibody syndrome with a h/o DVTin the past. Cont Eliquis BID per home regimen. (4) Anemia: slightly lower than baseline. Some iron deficiency present. No overt bleeding present at this time. If no screening colonoscopy has been performed as outpatient, would recommend this now given her age. Start iron supplementation and follow-up for further investigation as needed with primary care physician. (5) Venous stasis ulcers of both lower extremities: Came in with wraps that were removed and rewrapped by wound care today. New semipermanent wraps will need to be replaced prior to discharge home. Tramadol or Tylenol PRN (6) HTN (hypertension): slightly elevated, possibly related to the steroids. Will stop these now that she is improved. Cont current home antihypertensive regimen including losartan 100mg daily and Lasix 40mg PO daily. (7) SLE (systemic lupus erythematosus): h/o SLE with arthritis. She also has a h/o ITP treated with rituximab in 2013. She had a h/o DVT and PE and is s/p IVC filter. She was on coumadin until 2017 when she was changed to Eliquis because of difficulty maintaining in the treatment range INR. At the time Eliquis was initiated by her assembly riveter her BMI was 47. She is notably obese, which may lead to decreased drug absorption per some recommendations. As this was recommended by her assembly riveter, would continue her on this for now. Her daily low dose prednisone was held while giving decadron. Will restart this in am. (8) Morbid obesity: Lifestyle changes recommended for overall better health. (9) DVT prophylaxis: Eliquis Full Code Dispo-home in am. DO Jacinto Lorenzo Hospitalist Admission and Anticipated Discharge Date Admission Date: August 14, 2020 Subjective 55 yo F with obesity admitted with covid pneumonia she reports that her breathing is better than yesterday She is now oxygenating well on room air She is somewhat sleepy having just woken up from a nap She is improved clinically today. Review of Systems Review of Systems: All systems reviewed & are unremarkable except as noted in Subjective Physical Exam Physical Exam: CONSTITUTIONAL: obese, vitals as above, generally well- appearing EYES: normal conjunctivae, no scleral icterus ENT: external ear and nose normal, oropharynx clear, MMM, nasal canula in place. NECK: trachea midline RESPIRATORY: clear to auscultation bilaterally, no crackles, rales or wheezes, normal respiratory effort CARDIOVASCULAR: regular rate and rhythm, S1 and 2 heard without murmurs, gallops or rubs, no JVD, no peripheral edema GASTROINTESTINAL: soft, nontender, protuberant but nondistended, no guarding MUSCULOSKELETAL: strength 5/5 throughout, head is normocephalic and atraumatic SKIN: warm and dry NEUROLOGIC: CN 2-12 grossly intact, normal cognition, normal speech, no gross focal deficits. PSYCHIATRIC: alert cooperative and oriented to person, place and time. Results & Data Results & Data ([facility]) Vital Signs (Past 12 Hours) Vital Signs Temp Pulse Resp BP Pulse Ox Pulse Ox Pulse Ox 08/16/20 16:09 36.9 C 65 22 159/63 H 96 08/16/20 12:01 36.9 C 65 20 157/74 H 94 08/16/20 09:30 93 96 08/16/20 08:57 36.7 C 61 21 156/67 H 98 Pulse Ox 08/16/20 16:09 08/16/20 12:01 08/16/20 09:30 83 L 08/16/20 08:57 Laboratory Results Short CBC 08/16/20 Range/Units 05:56 WBC 4.96 (4.8-10.8) K/uL Hgb 10.7 L (12.0-16.0) g/dL Hct 34.8 L (37-47) % Plt Count 315 (130-400) K/uL BMP 08/16/20 05:56 Sodium 140 Potassium 3.7 Chloride 109 H Carbon Dioxide 27 BUN 20 H Creatinine 0.94 Glucose 86 Calcium 8.5 Liver Function 08/16/20 Range/Units 05:56 AST 20 (15-37) U/L ALT 32 (12-78) U/L Medications Administered Current Inpatient Medications Acetaminophen (Acetaminophen 325 Mg Tab) 650 mg PO Q4H PRN PRN Reason: Pain or Fever Stop: 05/06/21 08:27 Last Admin: 08/16/20 08:01 Dose: 650 mg Documented by: Apixaban (Apixaban 5 Mg Tablet) 5 mg PO BID [facility] Stop: 09/13/20 08:59 Last Admin: 08/16/20 07:53 Dose: 5 mg Documented by: Calcium Carbonate (Calcium Carbonate 1250mg Tab) 1,250 mg PO QAM [facility] Stop: 09/13/20 08:59 Last Admin: 08/16/20 07:53 Dose: 1,250 mg Documented by: Diphenhydramine HCl (Diphenhydramine Capsule 25 Mg Cap) 25 mg PO Q6H PRN PRN Reason: itching Stop: 09/13/20 08:27 Last Admin: 08/14/20 21:22 Dose: 25 mg Documented by: Fluticasone Propionate (Fluticasone Propionate Na Spr 16 Gm Btl) 2 sprays NA BID [facility] Stop: 09/13/20 08:59 Last Admin: 08/16/20 07:52 Dose: 2 sprays Documented by: Folic Acid (Folic Acid 1 Mg Tab) 1 mg PO QAM [facility] Stop: 09/13/20 08:59 Last Admin: 08/16/20 07:52 Dose: 1 mg Documented by: Furosemide (Furosemide 40 Mg Tab) 40 mg PO QAM [facility] Stop: 09/13/20 08:59 Last Admin: 08/16/20 07:53 Dose: 40 mg Documented by: Guaifenesin (Guaifenesin Sugar Free 200 Mg/10 Ml Udc) 200 mg PO Q6H PRN PRN Reason: Cough Stop: 09/13/20 19:29 Last Admin: 08/16/20 12:56 Dose: 200 mg Documented by: Remdesivir 100 mg/ Sodium (Chloride) 250 mls @ 250 mls/hr IV Q24H [facility]; Protocol Stop: 08/18/20 12:59 Last Infusion: 08/16/20 13:00 Dose: Infused Documented by: Dexamethasone 6 mg/ Syringe 1.5 mls @ 1 mls/min IV DAILY [facility] Stop: 08/25/20 08:59 Last Admin: 08/16/20 08:52 Dose: 1 mls/min Documented by: Losartan Potassium (Losartan Potassium 50 Mg Tab) 100 mg PO QAM [facility] Stop: 09/13/20 08:59 Last Admin: 08/16/20 07:52 Dose: 100 mg Documented by: Metoprolol Succinate (Metoprolol Succ 25mg Ext Rel Tab) 25 mg PO BID [facility] Stop: 09/13/20 08:59 Last Admin: 08/16/20 07:53 Dose: 25 mg Documented by: Multivitamins (Multivitamin Tab) 1 tab PO QAM [facility] Stop: 09/13/20 08:59 Last Admin: 08/16/20 07:53 Dose: 1 tab Documented by: Nitroglycerin (Nitroglycerin Sl 0.4 Mg/Tab Tab) 0.4 mg SL UD PRN PRN Reason: Chest Pain Stop: 09/13/20 08:27 Ondansetron HCl (Ondansetron Inj 2 Mg/Ml 2 Ml Vial) 4 mg IV Q6H PRN PRN Reason: Nausea Stop: 09/13/20 08:27 Sertraline HCl (Sertraline Hcl 100 Mg Tablet) 100 mg PO QAM [facility] Stop: 09/13/20 08:59 Last Admin: 08/16/20 07:53 Dose: 100 mg Documented by: Sodium Chloride (Sodium Chloride 0.9% 10ml Flush) 30 ml IV DAILY@1200 [facility] Stop: 08/18/20 12:01 Last Admin: 08/16/20 12:01 Dose: 30 ml Documented by: Sodium Chloride (Sodium Chloride 0.65% Na Soln 45 Ml ([place])) 2 sprays NA QPM [facility] Stop: 09/13/20 20:59 Last Admin: 08/15/20 20:39 Dose: Not Given Documented by: Tramadol HCl (Tramadol Hcl 50 Mg Tablet) 50 mg PO Q4H PRN PRN Reason: Pain Stop: 09/15/20 17:35 Trazodone HCl (Trazodone Hcl 100 Mg Tab) 100 mg PO HS [facility] Stop: 09/13/20 20:59 Last Admin: 08/15/20 20:38 Dose: 100 mg Documented by: (1) Anemia Anemia type: unspecified type Qualified Code(s): D64.9 - Anemia, unspecified
[2020-08-16] MEDS: traZODone HCL 100 MG TAB PO SCH (20:01)
[2020-08-16] MEDS: SODIUM CHLORIDE 0.65% NA SOLN 45 ML (OCEAN) SCH (20:03)
[2020-08-16] MEDS: traMADol HCL 50 MG TABLET PO PRN (20:05)
[2020-08-17 06:50] LABS: Creatinine Clr Calc Pharmacy 111.6 ml/min; Est GFR (African American) 88.2; Est GFR (Non-African American) 76.1
[2020-08-17] MEDS: FLUTICASONE PROPIONATE NA SPR 16 GM BTL SCH ×2 (08:22→20:39)
[2020-08-17] MEDS: guaiFENesin SUGAR FREE 200 MG/10 ML UDC PO PRN ×2 (08:23→20:39)
[2020-08-17] MEDS: FERROUS SULFATE 325 MG TAB PO SCH ×2 (08:23→17:28)
[2020-08-17] MEDS: METOPROLOL SUCC 25MG EXT REL TAB PO SCH ×2 (08:23→20:39)
[2020-08-17] MEDS: APIXABAN 5 MG TABLET PO SCH ×2 (08:24→20:39)
[2020-08-17] MEDS: SERTRALINE HCL 100 MG TABLET PO SCH (08:24)
[2020-08-17] MEDS: CALCIUM CARBONATE 1250MG TAB PO SCH (08:25)
[2020-08-17] MEDS: FOLIC ACID 1 MG TAB PO SCH (08:25)
[2020-08-17] MEDS: FUROSEMIDE 40 MG TAB PO SCH (08:26)
[2020-08-17] MEDS: LOSARTAN POTASSIUM 50 MG TAB PO SCH (08:26)
[2020-08-17] MEDS: MULTIVITAMIN TAB PO SCH (08:27)
[2020-08-17] MEDS ORDERED: predniSONE 10 MG TABLET PO SCH (09:00)
[2020-08-17] MEDS: REMDESIVIR 100 MG in SODIUM CHLORIDE 0.9% 230 ML IV SCH (11:32)
[2020-08-17] MEDS: SODIUM CHLORIDE 0.9% 10ML FLUSH IV SCH (12:34)
--- NOTE | 2020-08-17 15:52 | Hospitalist Progress Note ---
Date of Service August 17, 2020 Assessment & Plan (1) Acute hypoxemic respiratory failure: Improved but remains on oxygen supplementation. Still requiring significant oxygen supplementation with ambulation as evidenced by two-step results this morning. (2) Pneumonia due to COVID-19 virus: Breathing has improved on current therapy. Hypoxia has returned but patient not reporting worsened breathing. Cont remdesivir monitoring for improvement. Of note Decadron was stopped today as a result of elevated blood pressure. Blood pressure has improved and hypoxia has returned so we will restart Decadron again tomorrow morning. (3) Hypercoagulable state: h/o antiphospholipid antibody syndrome with a h/o DVTin the past. Cont Eliquis BID per home regimen. (4) Anemia: slightly lower than baseline. Some iron deficiency present. No overt bleeding present at this time. If no screening colonoscopy has been performed as outpatient, would recommend this now given her age. Start iron supplementation this admission and follow-up for further investigation as needed with primary care physician. (5) Venous stasis ulcers of both lower extremities: Came in with wraps that were removed and rewrapped by wound care. New semipermanent wraps will need to be replaced prior to discharge home. Tramadol or Tylenol PRN (6) HTN (hypertension): slightly elevated, possibly related to the steroids. Will stop these now that she is improved. Cont current home antihypertensive regimen including losartan 100mg daily and Lasix 40mg PO daily. (7) SLE (systemic lupus erythematosus): h/o SLE with arthritis. She also has a h/o ITP treated with rituximab in 2013. She had a h/o DVT and PE and is s/p IVC filter. She was on coumadin until 2017 when she was changed to Eliquis because of difficulty maintaining in the treatment range INR. At the time Eliquis was initiated by her window caser her BMI was 47. She is notably obese, which may lead to decreased drug absorption per some recommendations. As this was recommended by her hematolo gist, would continue her on this for now. Her daily low dose prednisone was held while giving decadron. 1 dose given this morning, hold now that restarting Decadron. (8) Morbid obesity: Lifestyle changes recommended for overall better health. (9) DVT prophylaxis: Eliquis Full Code Dispo-home when medically stable. Lilianignacio Chacon DO [facility] Hospitalist Admission and Anticipated Discharge Date Admission Date: August 14, 2020 Subjective 55 yo F with obesity admitted with covid pneumonia Failed to stop today requiring oxygen with ambulation, reports breathing is about the same today, continues to cough. Otherwise relatively asymptomatic. She is continuing to walk around the room as much as able.. Review of Systems Review of Systems: All systems reviewed & are unremarkable except as noted in Subjective Physical Exam Physical Exam: CONSTITUTIONAL: obese, vitals as above, generally well- appearing EYES: normal conjunctivae, no scleral icterus ENT: external ear and nose normal, oropharynx clear, MMM, nasal canula in place. NECK: trachea midline RESPIRATORY: clear to auscultation bilaterally, no crackles, rales or wheezes, normal respiratory effort CARDIOVASCULAR: regular rate and rhythm, S1 and 2 heard without murmurs, gallops or rubs, no JVD, no peripheral edema GASTROINTESTINAL: soft, nontender, protuberant but nondistended, no guarding MUSCULOSKELETAL: strength 5/5 throughout, head is normocephalic and atraumatic SKIN: warm and dry NEUROLOGIC: CN 2-12 grossly intact, normal cognition, normal speech, no gross focal deficits. PSYCHIATRIC: alert cooperative and oriented to person, place and time. Results & Data Results & Data ([facility]) Vital Signs (Past 12 Hours) Vital Signs Temp Pulse Pulse Pulse Pulse Pulse Pulse 08/17/20 11:29 36.5 C 08/17/20 08:04 70 83 69 82 72 70 08/17/20 08:02 36.8 C 08/17/20 06:07 36.9 C Pulse Resp Resp Resp Resp Resp Resp 08/17/20 11:29 58 L 20 08/17/20 08:04 20 20 20 20 20 08/17/20 08:02 69 22 08/17/20 06:07 60 18 Resp BP BP Pulse Ox Pulse Ox Pulse Ox Pulse Ox 08/17/20 11:29 144/66 H 94 08/17/20 08:04 16 84 L 87 L 92 08/17/20 08:02 151/93 H 95 08/17/20 06:07 155/86 H 92 Pulse Ox Pulse Ox Pulse Ox 08/17/20 11:29 08/17/20 08:04 86 L 90 92 08/17/20 08:02 08/17/20 06:07 Laboratory Results [facility] 08/17/20 05:48 Creatinine 0.87 Liver Function 08/17/20 Range/Units 05:48 AST 50 H (15-37) U/L ALT 62 (12-78) U/L Medications Administered Current Inpatient Medications Acetaminophen (Acetaminophen 325 Mg Tab) 650 mg PO Q4H PRN PRN Reason: Pain or Fever Stop: 09/13/20 08:27 Last Admin: 08/16/20 08:01 Dose: 650 mg Documented by: Apixaban (Apixaban 5 Mg Tablet) 5 mg PO BID [facility] Stop: 09/13/20 08:59 Last Admin: 08/17/20 08:24 Dose: 5 mg Documented by: Calcium Carbonate (Calcium Carbonate 1250mg Tab) 1,250 mg PO [facility] Stop: 09/13/20 08:59 Last Admin: 08/17/20 08:25 Dose: 1,250 mg Documented by: Ferrous Sulfate (Ferrous Sulfate 325 Mg Tab) 325 mg PO BIDM [facility] Stop: 09/16/20 07:59 Last Admin: 08/17/20 08:23 Dose: 325 mg Documented by: Fluticasone Propionate (Fluticasone Propionate Na Spr 16 Gm Btl) 2 sprays NA BID [facility] Stop: 09/13/20 08:59 Last Admin: 08/17/20 08:22 Dose: 2 sprays Documented by: Folic Acid (Folic Acid 1 Mg Tab) 1 mg PO QAM [facility] Stop: 09/13/20 08:59 Last Admin: 08/17/20 08:25 Dose: 1 mg Documented by: Furosemide (Furosemide 40 Mg Tab) [facility] Stop: 09/13/20 08:59 Last Admin: 08/17/20 08:26 Dose: 40 mg Documented by: Guaifenesin (Guaifenesin Sugar Free 200 Mg/10 Ml Udc) 200 mg PO Q6H PRN PRN Reason: Cough Stop: 09/13/20 19:29 Last Admin: 08/17/20 08:23 Dose: 200 mg Documented by: Remdesivir 100 mg/ Sodium (Chloride) 250 mls @ 250 mls/hr IV Q24H [facility]; Protocol Stop: 08/18/20 12:59 Last Infusion: 08/17/20 12:34 Dose: Infused Documented by: Losartan Potassium (Losartan Potassium 50 Mg Tab) [facility] Stop: 09/13/20 08:59 Last Admin: 08/17/20 08:26 Dose: 100 mg Documented by: Metoprolol Succinate (Metoprolol Succ 25mg Ext Rel Tab) 25 mg PO BID [facility] Stop: 09/13/20 08:59 Last Admin: 08/17/20 08:23 Dose: 25 mg Documented by: Multivitamins (Multivitamin Tab) 1 tab PO QAM [facility] Stop: 09/13/20 08:59 Last Admin: 08/17/20 08:27 Dose: 1 tab Documented by: Nitroglycerin (Nitroglycerin Sl 0.4 Mg/Tab Tab) 0.4 mg SL UD PRN PRN Reason: Chest Pain Stop: 09/13/20 08:27 Ondansetron HCl (Ondansetron Inj 2 Mg/Ml 2 Ml Vial) 4 mg IV Q6H PRN PRN Reason: Nausea Stop: 09/13/20 08:27 Prednisone (Prednisone 10 Mg Tablet) 10 mg PO DAILY [facility] Stop: 09/16/20 08:59 Last Admin: 08/17/20 08:24 Dose: 10 mg Documented by: Sertraline HCl (Sertraline Hcl 100 Mg Tablet) 100 mg PO [facility] Stop: 09/13/20 08:59 Last Admin: 08/17/20 08:24 Dose: 100 mg Documented by: Sodium Chloride (Sodium Chloride 0.9% 10ml Flush) 30 ml IV DAILY@1200 [facility] Stop: 08/18/20 12:01 Last Admin: 08/17/20 12:34 Dose: 30 ml Documented by: Sodium Chloride (Sodium Chloride 0.65% Na Soln 45 Ml ([place])) 2 sprays NA QPM [facility] Stop: 09/13/20 20:59 Last Admin: 08/16/20 20:03 Dose: 2 sprays Documented by: Tramadol HCl (Tramadol Hcl 50 Mg Tablet) 50 mg PO Q4H PRN PRN Reason: Pain Stop: 09/15/20 17:35 Last Admin: 08/16/20 20:05 Dose: 50 mg Documented by: Trazodone HCl (Trazodone Hcl 100 Mg Tab) 100 mg PO HS [facility] Stop: 09/13/20 20:59 Last Admin: 08/16/20 20:01 Dose: 100 mg Documented by: (1) Anemia Anemia type: unspecified type Qualified Code(s): D64.9 - Anemia, unspecified
[2020-08-17] MEDS: traZODone HCL 100 MG TAB PO SCH (20:39)
[2020-08-17] MEDS: ACETAMINOPHEN 325 MG TAB PO PRN (20:40)
[2020-08-17] MEDS: SODIUM CHLORIDE 0.65% NA SOLN 45 ML (OCEAN) SCH (20:41)
[2020-08-18 06:14] LABS: Hematocrit (blood only) 35.4 % (37-47); Hemoglobin 11.1 g/dL (12.0-16.0); Mean Corpuscular Hemoglobin 25.7 pg (25-34); Mean Corpuscular Hgb Conc 31.4 g/dL (32-36); Mean Corpuscular Volume 81.9 fL (80-100); Mean Platelet Volume 9.9 fL (7.4-10.4); Platelet Count 298 K/uL (130-400); RDW Coefficient of Variation 15.4 % (11.5-14.5); RDW Standard Deviation 46.3 fL (36.4-46.3); Red Blood Count 4.32 M/uL (4.2-5.4); White Blood Count 6.32 K/uL (4.8-10.8)
[2020-08-18 06:43] LABS: BUN Creatinine Ratio 27.7 (10-20); C Reactive Protein 1.57 mg/dl (0-0.29); Calcium 8.5 mg/dl (8.5-10.1); Creatinine Clr Calc Pharmacy 96.2 ml/min; Est GFR (African American) 73.6; Est GFR (Non-African American) 63.5; Potassium 3.7 mmol/L (3.5-5.1)
[2020-08-18] MEDS: FLUTICASONE PROPIONATE NA SPR 16 GM BTL SCH ×2 (08:30→21:12)
[2020-08-18] MEDS: FOLIC ACID 1 MG TAB PO SCH (08:30)
[2020-08-18] MEDS: LOSARTAN POTASSIUM 50 MG TAB PO SCH (08:30)
[2020-08-18] MEDS: FUROSEMIDE 40 MG TAB PO SCH (08:30)
[2020-08-18] MEDS: SERTRALINE HCL 100 MG TABLET PO SCH (08:31)
[2020-08-18] MEDS: guaiFENesin SUGAR FREE 200 MG/10 ML UDC PO PRN ×2 (08:31→21:12)
[2020-08-18] MEDS: CALCIUM CARBONATE 1250MG TAB PO SCH (08:31)
[2020-08-18] MEDS: METOPROLOL SUCC 25MG EXT REL TAB PO SCH ×2 (08:31→21:11)
[2020-08-18] MEDS: APIXABAN 5 MG TABLET PO SCH ×2 (08:32→21:10)
[2020-08-18] MEDS: FERROUS SULFATE 325 MG TAB PO SCH ×2 (08:33→17:36)
[2020-08-18] MEDS: dexAMETHasone 4 MG TAB PO SCH (08:34)
[2020-08-18] MEDS: MULTIVITAMIN TAB PO SCH (08:34)
[2020-08-18] MEDS: REMDESIVIR 100 MG in SODIUM CHLORIDE 0.9% 230 ML IV SCH (12:27)
[2020-08-18] MEDS: SODIUM CHLORIDE 0.9% 10ML FLUSH IV SCH (12:28)
--- NOTE | 2020-08-18 19:45 | Hospitalist Progress Note ---
Date of Service August 18, 2020 Assessment & Plan (1) Acute hypoxemic respiratory failure: Improved but remains on oxygen supplementation. Still requiring significant oxygen supplementation with ambulation. Continue current therapy for pneumonia. (2) Pneumonia due to COVID-19 virus: Breathing has improved on current therapy. Hypoxia persists completed remdesivir therapy. Continue p.o. Decadron with supportive care as needed. CRP has trended down. (3) Hypercoagulable state: h/o antiphospholipid antibody syndrome with a h/o DVTin the past. Cont Eliquis BID per home regimen. (4) Anemia: slightly lower than baseline. Some iron deficiency present. No overt bleeding present at this time. If no screening colonoscopy has been performed as outpatient, would recommend this now given her age. Start iron supplementation this admission and follow-up for further investigation as needed with primary care physician. (5) Venous stasis ulcers of both lower extremities: Came in with wraps that were removed and rewrapped by wound care. New semipermanent wraps will need to be replaced prior to discharge home. Tramadol or Tylenol PRN (6) HTN (hypertension): Controlled on current therapy including losartan and Lasix. (7) SLE (systemic lupus erythematosus): h/o SLE with arthritis. She also has a h/o ITP treated with rituximab in 2013. She had a h/o DVT and PE and is s/p IVC filter. She was on coumadin until 2017 when she was changed to Eliquis because of difficulty maintaining in the treatment range INR. At the time Eliquis was initiated by her shaper setter her BMI was 47. She is notably obese, which may lead to decreased drug absorption per some recommendations. As this was recommended by her shaper setter, would continue her on this for now. Her daily low dose prednisone was held while giving decadron. (8) Morbid obesity: Lifestyle changes recommended for overall better health. (9) DVT prophylaxis: Eliquis Full Code Dispo-home when medically stable. Lilian Chacon DO [facility] Hospitalist Admission and Anticipated Discharge Date Admission Date: August 14, 2020 Subjective 55 yo F with obesity admitted with covid pneumonia Patient reports doing well overall, still requiring oxygen supplementation, reports improvement in breathing Tolerating p.o., afebrile, no diarrhea reported Review of Systems Review of Systems: All systems reviewed & are unremarkable except as noted in Subjective Physical Exam Physical Exam: CONSTITUTIONAL: obese, vitals as above, generally well- appearing EYES: normal conjunctivae, no scleral icterus ENT: external ear and nose normal, oropharynx clear, MMM, nasal canula in place. NECK: trachea midline RESPIRATORY: clear to auscultation bilaterally, no crackles, rales or wheezes, normal respiratory effort CARDIOVASCULAR: regular rate and rhythm, S1 and 2 heard without murmurs, gallops or rubs, no JVD, no peripheral edema GASTROINTESTINAL: soft, nontender, protuberant but nondistended, no guarding MUSCULOSKELETAL: strength 5/5 throughout, head is normocephalic and atraumatic SKIN: warm and dry NEUROLOGIC: CN 2-12 grossly intact, normal cognition, normal speech, no gross focal deficits. PSYCHIATRIC: alert cooperative and oriented to person, place and time. Results & Data Results & Data ([facility]) Vital Signs (Past 12 Hours) Vital Signs Temp Pulse Resp BP Pulse Ox 08/18/20 15:13 36.9 C 60 16 114/55 L 96 Laboratory Results Short CBC 08/18/20 Range/Units 05:34 WBC 6.32 (4.8-10.8) K/uL Hgb 11.1 L (12.0-16.0) g/dL Hct 35.4 L (37-47) % Plt Count 298 (130-400) K/uL BMP 08/18/20 05:34 Sodium 140 Potassium 3.7 Chloride 110 H Carbon Dioxide 26 BUN 28 H Creatinine 1.01 Glucose 77 Calcium 8.5 Liver Function 08/18/20 Range/Units 05:34 AST 94 H (15-37) U/L ALT 147 H (12-78) U/L Medications Administered Current Inpatient Medications Acetaminophen (Acetaminophen 325 Mg Tab) 650 mg PO Q4H PRN PRN Reason: Pain or Fever Stop: 09/13/20 08:27 Last Admin: 08/17/20 20:40 Dose: 650 mg Documented by: Apixaban (Apixaban 5 Mg Tablet) 5 mg PO BID [facility] Stop: 09/13/20 08:59 Last Admin: 08/18/20 08:32 Dose: 5 mg Documented by: Calcium Carbonate (Calcium Carbonate 1250mg Tab) 1,250 mg PO QAM [facility] Stop: 09/13/20 08:59 Last Admin: 08/18/20 08:31 Dose: 1,250 mg Documented by: Dexamethasone (Dexamethasone 4 Mg Tab) [facility] [place]: 09/17/20 08:59 Last Admin: 08/18/20 08:34 Dose: 6 mg Documented by: Ferrous Sulfate (Ferrous Sulfate 325 Mg Tab) 325 mg PO BIDM [facility] Stop: 09/16/20 07:59 Last Admin: 08/18/20 17:36 Dose: 325 mg Documented by: Fluticasone Propionate (Fluticasone Propionate Na Spr 16 Gm Btl) 2 sprays NA BID [facility] Stop: 09/13/20 08:59 Last Admin: 08/18/20 08:30 Dose: 2 sprays Documented by: Folic Acid (Folic Acid 1 Mg Tab) [facility] [place]: 09/13/20 08:59 Last Admin: 08/18/20 08:30 Dose: 1 mg Documented by: Furosemide (Furosemide 40 Mg Tab) 40 mg PO [facility] Stop: 09/13/20 08:59 Last Admin: 08/18/20 08:30 Dose: 40 mg Documented by: Guaifenesin (Guaifenesin Sugar Free 200 Mg/10 Ml Udc) 200 mg PO Q6H PRN PRN Reason: Cough Stop: 09/13/20 19:29 Last Admin: 08/18/20 08:31 Dose: 200 mg Documented by: Losartan Potassium (Losartan Potassium 50 Mg Tab) [facility] [place]: 09/13/20 08:59 Last Admin: 08/18/20 08:30 Dose: 100 mg Documented by: Metoprolol Succinate (Metoprolol Succ 25mg Ext Rel Tab) 25 mg PO BID [facility] Stop: 09/13/20 08:59 Last Admin: 08/18/20 08:31 Dose: 25 mg Documented by: Multivitamins (Multivitamin Tab) 1 tab PO [facility] Stop: 09/13/20 08:59 Last Admin: 08/18/20 08:34 Dose: 1 tab Documented by: Nitroglycerin (Nitroglycerin Sl 0.4 Mg/Tab Tab) 0.4 mg SL UD PRN PRN Reason: Chest Pain Stop: 09/13/20 08:27 Ondansetron HCl (Ondansetron Inj 2 Mg/Ml 2 Ml Vial) 4 mg IV Q6H PRN PRN Reason: Nausea Stop: 09/13/20 08:27 Prednisone (Prednisone 10 Mg Tablet) 10 mg PO DAILY [facility] Stop: 09/16/20 08:59 Last Admin: 08/17/20 08:24 Dose: 10 mg Documented by: Sertraline HCl (Sertraline Hcl 100 Mg Tablet) 100 mg PO QAM [facility] Stop: 09/13/20 08:59 Last Admin: 08/18/20 08:31 Dose: 100 mg Documented by: Sodium Chloride (Sodium Chloride 0.65% Na Soln 45 Ml ([place])) 2 sprays NA QPM [facility] Stop: 09/13/20 20:59 Last Admin: 08/17/20 20:41 Dose: 2 sprays Documented by: Tramadol HCl (Tramadol Hcl 50 Mg Tablet) 50 mg PO Q4H PRN PRN Reason: Pain Stop: 09/15/20 17:35 Last Admin: 08/16/20 20:05 Dose: 50 mg Documented by: Trazodone HCl (Trazodone Hcl 100 Mg Tab) 100 mg PO HS [facility] Stop: 09/13/20 20:59 Last Admin: 08/17/20 20:39 Dose: 100 mg Documented by: (1) Anemia Anemia type: unspecified type Qualified Code(s): D64.9 - Anemia, unspecified
[2020-08-18] MEDS: ACETAMINOPHEN 325 MG TAB PO PRN (21:10)
[2020-08-18] MEDS: traZODone HCL 100 MG TAB PO SCH (21:12)
[2020-08-18] MEDS: SODIUM CHLORIDE 0.65% NA SOLN 45 ML (OCEAN) SCH (21:12)
[2020-08-19 07:42] LABS: Creatinine Clr Calc Pharmacy 144.7 ml/min; Est GFR (African American) 116.3; Est GFR (Non-African American) 100.4
[2020-08-19] MEDS: dexAMETHasone 4 MG TAB PO SCH (08:32)
[2020-08-19] MEDS: CALCIUM CARBONATE 1250MG TAB PO SCH (08:32)
[2020-08-19] MEDS: SERTRALINE HCL 100 MG TABLET PO SCH (08:32)
[2020-08-19] MEDS: METOPROLOL SUCC 25MG EXT REL TAB PO SCH ×3 (08:33→20:16)
[2020-08-19] MEDS: LOSARTAN POTASSIUM 50 MG TAB PO SCH (08:33)
[2020-08-19] MEDS: FLUTICASONE PROPIONATE NA SPR 16 GM BTL SCH ×2 (08:33→20:11)
[2020-08-19] MEDS: APIXABAN 5 MG TABLET PO SCH ×2 (08:33→20:09)
[2020-08-19] MEDS: FUROSEMIDE 40 MG TAB PO SCH (08:34)
[2020-08-19] MEDS: FOLIC ACID 1 MG TAB PO SCH (08:34)
[2020-08-19] MEDS: MULTIVITAMIN TAB PO SCH (08:34)
[2020-08-19] MEDS: FERROUS SULFATE 325 MG TAB PO SCH ×2 (08:59→17:53)
--- NOTE | 2020-08-19 12:22 | Hospitalist Progress Note ---
Date of Service August 19, 2020 Assessment & Plan (1) Acute hypoxemic respiratory failure: Improved but remains on oxygen supplementation with ambulation. Crackles on exam and persistent oxygen requirement-will repeat CXR. Continue current therapy for pneumonia. (2) Pneumonia due to COVID-19 virus: Breathing has improved on current therapy. Hypoxia persists completed remdesivir therapy. Continue p.o. Decadron with supportive care as needed. CRP has trended down. (3) Hypercoagulable state: h/o antiphospholipid antibody syndrome with a h/o DVT in the past. Cont Eliquis BID per home regimen. (4) Anemia: slightly lower than baseline. Some iron deficiency present. No overt bleeding present at this time. If no screening colonoscopy has been performed as outpatient, would recommend this now given her age. Start iron supplementation this admission and follow-up for further investigation as needed with primary care physician. (5) Venous stasis ulcers of both lower extremities: Came in with wraps that were removed and rewrapped by wound care. New semipermanent wraps will need to be replaced prior to discharge home. Tramadol or Tylenol PRN (6) HTN (hypertension): Controlled on current therapy including losartan and Lasix. (7) SLE (systemic lupus erythematosus): h/o SLE with arthritis. She also has a h/o ITP treated with rituximab in 2013. She had a h/o DVT and PE and is s/p IVC filter. She was on coumadin until 2017 when she was changed to Eliquis because of difficulty maintaining in the treatment range INR. At the time Eliquis was initiated by her appliances sample maker her BMI was 47. She is notably obese, which may lead to decreased drug absorption per some recommendations. As this was recommended by her appliances sample maker, would continue her on this for now. Her daily low dose prednisone was held while giving decadron. (8) Morbid obesity: Lifestyle changes recommended for overall better health. (9) DVT prophylaxis: Eliquis Full Code Dispo-home when medically stable. Possible home in next 1-2 days. Would repeat two step respiratory test prior to discharge. Lilian Chacon DO [facility] Hospitalist Admission and Anticipated Discharge Date Admission Date: August 14, 2020 Subjective 55 yo F with obesity admitted with covid pneumonia Doing well, breathing improved off oxygen at rest but dyspnea and hypoxia with ambulation still present CXR to evaluate for edema on daily lasix per home regimen otherwise ROS negative Review of Systems Review of Systems: All systems reviewed & are unremarkable except as noted in Subjective Physical Exam Physical Exam: CONSTITUTIONAL: obese, vitals as above, generally well- appearing EYES: normal conjunctivae, no scleral icterus ENT: external ear and nose normal, oropharynx clear, MMM, nasal canula in place. NECK: trachea midline RESPIRATORY: crackles intermittently present through lung greenwood alpesh at bilateral bases, no rales or wheezes, normal respiratory effort CARDIOVASCULAR: regular rate and rhythm, S1 and 2 heard without murmurs, gallops or rubs, no JVD, no peripheral edema GASTROINTESTINAL: soft, nontender, protuberant but nondistended, no guarding MUSCULOSKELETAL: strength 5/5 throughout, head is normocephalic and atraumatic SKIN: warm and dry NEUROLOGIC: CN 2-12 grossly intact, normal cognition, normal speech, no gross focal deficits. PSYCHIATRIC: alert cooperative and oriented to person, place and time. Results & Data Results & Data ([facility]) Vital Signs (Past 12 Hours) Vital Signs Temp Pulse Resp BP Pulse Ox 08/19/20 09:04 95 08/19/20 08:00 91 08/19/20 07:51 36.8 C 62 19 126/59 L 92 Laboratory Results [facility] 08/19/20 06:31 Creatinine 0.67 D Liver Function 08/19/20 Range/Units 06:31 AST 54 H (15-37) U/L ALT 140 H (12-78) U/L Medications Administered Current Inpatient Medications Acetaminophen (Acetaminophen 325 Mg Tab) 650 mg PO Q4H PRN PRN Reason: Pain or Fever Stop: 09/13/20 08:27 Last Admin: 08/18/20 21:10 Dose: 650 mg Documented by: Apixaban (Apixaban 5 Mg Tablet) 5 mg PO BID [facility] Stop: 09/13/20 08:59 Last Admin: 08/19/20 08:33 Dose: 5 mg Documented by: Calcium Carbonate (Calcium Carbonate 1250mg Tab) 1,250 mg PO QAM [facility] Stop: 09/13/20 08:59 Last Admin: 08/19/20 08:32 Dose: 1,250 mg Documented by: Dexamethasone (Dexamethasone 4 Mg Tab) 6 mg PO QAM [facility] Stop: 09/17/20 08:59 Last Admin: 08/19/20 08:32 Dose: 6 mg Documented by: Ferrous Sulfate (Ferrous Sulfate 325 Mg Tab) 325 mg PO BIDM [facility] Stop: 09/16/20 07:59 Last Admin: 08/19/20 08:59 Dose: 325 mg Documented by: Fluticasone Propionate (Fluticasone Propionate Na Spr 16 Gm Btl) 2 sprays NA BID [facility] Stop: 09/13/20 08:59 Last Admin: 08/19/20 08:33 Dose: 2 sprays Documented by: Folic Acid (Folic Acid 1 Mg Tab) 1 mg PO QAM [facility] Stop: 09/13/20 08:59 Last Admin: 08/19/20 08:34 Dose: 1 mg Documented by: Furosemide (Furosemide 40 Mg Tab) 40 mg PO QAM [facility] Stop: 09/13/20 08:59 Last Admin: 08/19/20 08:34 Dose: 40 mg Documented by: Guaifenesin (Guaifenesin Sugar Free 200 Mg/10 Ml Udc) 200 mg PO Q6H PRN PRN Reason: Cough Stop: 09/13/20 19:29 Last Admin: 08/18/20 21:12 Dose: 200 mg Documented by: Losartan Potassium (Losartan Potassium 50 Mg Tab) [facility] [place] Stop: 09/13/20 08:59 Last Admin: 08/19/20 08:33 Dose: 100 mg Documented by: Metoprolol Succinate (Metoprolol Succ 25mg Ext Rel Tab) 25 mg PO BID [facility] Stop: 09/13/20 08:59 Last Admin: 08/19/20 08:33 Dose: 25 mg Documented by: Multivitamins (Multivitamin Tab) [facility] [place] Stop: 09/13/20 08:59 Last Admin: 08/19/20 08:34 Dose: 1 tab Documented by: Nitroglycerin (Nitroglycerin Sl 0.4 Mg/Tab Tab) 0.4 mg SL UD PRN PRN Reason: Chest Pain Stop: 09/13/20 08:27 Ondansetron HCl (Ondansetron Inj 2 Mg/Ml 2 Ml Vial) 4 mg IV Q6H PRN PRN Reason: Nausea Stop: 09/13/20 08:27 Prednisone (Prednisone 10 Mg Tablet) 10 mg PO DAILY [facility] Stop: 09/16/20 08:59 Last Admin: 08/17/20 08:24 Dose: 10 mg Documented by: Sertraline HCl (Sertraline Hcl 100 Mg Tablet) 100 mg PO QAM [facility] Stop: 09/13/20 08:59 Last Admin: 08/19/20 08:32 Dose: 100 mg Documented by: Sodium Chloride (Sodium Chloride 0.65% Na Soln 45 Ml ([place])) 2 sprays NA QPM ART Stop: 09/13/20 20:59 Last Admin: 08/18/20 21:12 Dose: 2 sprays Documented by: Tramadol HCl (Tramadol Hcl 50 Mg Tablet) 50 mg PO Q4H PRN PRN Reason: Pain Stop: 09/15/20 17:35 Last Admin: 08/16/20 20:05 Dose: 50 mg Documented by: Trazodone HCl (Trazodone Hcl 100 Mg Tab) 100 mg PO HS [facility] Stop: 09/13/20 20:59 Last Admin: 08/18/20 21:12 Dose: 100 mg Documented by: (1) Anemia Anemia type: unspecified type Qualified Code(s): D64.9 - Anemia, unspecified
--- NOTE | 2020-08-19 17:21 | XRay Report ---
XR chest 1V portable CLINICAL HISTORY: HYPOXIA COMPARISON STUDY: Chest radiograph August 14, 2020. Chest CT August 15, 2020. FINDINGS: Lung volumes are normal. There is no pneumothorax or pleural effusion. Moderate multifocal airspace opacities within the lungs persist. These are similar to prior chest CT. Cardiomediastinal s ilhouette is stable. There is no evidence for pulmonary edema. IMPRESSION: No significant change in multifocal airspace opacities within the lungs suggestive of vi ral pneumonia. ACT 112: Negative or not required by law. Electronically signed by: Gama Alexander M.D. 08/19/2020 5:19 PM
[2020-08-19] MEDS: traZODone HCL 100 MG TAB PO SCH (20:09)
[2020-08-19] MEDS: SODIUM CHLORIDE 0.65% NA SOLN 45 ML (OCEAN) SCH (20:18)
[2020-08-19] MEDS: traMADol HCL 50 MG TABLET PO PRN (20:30)
[2020-08-20 07:09] LABS: Hematocrit (blood only) 38.3 % (37-47); Hemoglobin 12.2 g/dL (12.0-16.0); Mean Corpuscular Hemoglobin 25.8 pg (25-34); Mean Corpuscular Hgb Conc 31.9 g/dL (32-36); Mean Corpuscular Volume 81.1 fL (80-100); Platelet Count 351 K/uL (130-400); RDW Coefficient of Variation 15.2 % (11.5-14.5); RDW Standard Deviation 44.6 fL (36.4-46.3); Red Blood Count 4.72 M/uL (4.2-5.4); White Blood Count 8.65 K/uL (4.8-10.8)
[2020-08-20 07:45] LABS: BUN Creatinine Ratio 32.9 (10-20); C Reactive Protein 1.62 mg/dl (0-0.29); Calcium 9.3 mg/dl (8.5-10.1); Creatinine Clr Calc Pharmacy 106.5 ml/min; Est GFR (African American) 83.5; Magnesium 2.2 mg/dl (1.8-2.4); Potassium 3.9 mmol/L (3.5-5.1)
[2020-08-20] MEDS: METOPROLOL SUCC 25MG EXT REL TAB PO SCH (09:32)
[2020-08-20] MEDS: dexAMETHasone 4 MG TAB PO SCH (09:33)
[2020-08-20] MEDS: guaiFENesin SUGAR FREE 200 MG/10 ML UDC PO PRN (09:33)
[2020-08-20] MEDS: FUROSEMIDE 40 MG TAB PO SCH (09:33)
[2020-08-20] MEDS: FERROUS SULFATE 325 MG TAB PO SCH (09:33)
[2020-08-20] MEDS: FOLIC ACID 1 MG TAB PO SCH (09:33)
[2020-08-20] MEDS: SERTRALINE HCL 100 MG TABLET PO SCH (09:33)
[2020-08-20] MEDS: APIXABAN 5 MG TABLET PO SCH (09:33)
[2020-08-20] MEDS: CALCIUM CARBONATE 1250MG TAB PO SCH (09:34)
[2020-08-20] MEDS: MULTIVITAMIN TAB PO SCH (09:34)
[2020-08-20] MEDS: LOSARTAN POTASSIUM 50 MG TAB PO SCH (09:34)
[2020-08-20] MEDS: FLUTICASONE PROPIONATE NA SPR 16 GM BTL SCH (09:35)
--- NOTE | 2020-08-20 13:09 | Discharge Summary ---
Date of Service August 20, 2020 Admission HPI Per Admitting Provider This is a 55-year-old female with past medical history significant for hyperlipidemia, presence of IVC filter, chronic venous insufficiency, hypertension, stasis of both legs, venous stasis ulcers of both lower extremities, antiphospholipid antibody syndrome, thrombocytopenia, SLE, lymphedema, history of pulmonary embolism, umbilical hernia, history of DVT, history of ITP, history of depression, who was brought in for shortness of breath and found to have COVID pneumonia. The patient lives in an apartment, but currently since last 2 weeks they are living in a hotel room because waiting for a new appointment and since last 2 days, she was getting short of breath, cough as per the patient and she has some mild headache and couple of episodes of diarrhea yesterday. She did not feel that she had a fever. Appetite is okay. Has some runny nose. Denies any sore throat, no earache, no difficulty swallowing, no chest pain. Somewhat nauseous, mild abdominal pain. Normal bladder movements. No blood in stools. No hematuria. Has chronic lower extremity ulcers and she follows with wound care clinic.Currently saturating ok on high flow and speaking in full sentences. Admission Exam Per Admitting Provider GENERAL: The patient is morbidly obese, not in acute distress. VITAL SIGNS: Temperature 38.1, pulse 84, respiratory rate 21, blood pressure 150/79, oxygen 98% on 40% FIO2 high-flow oxygen. HEENT: Pupils equal, round, reactive to light. Oral mucosa somewhat dry. NECK: No JVD, no neck masses seen. CARDIOVASCULAR: S1, S2, regular rate and rhythm, no murmur, no gallop. RESPIRATORY SYSTEM: Normal AP diameter. No accessory muscle use. Mild bibasilar crackles. No wheezing. ABDOMEN: Soft, bowel sounds present, nontender. No distention. CENTRAL NERVOUS SYSTEM: Cranial nerves II-XII grossly intact. Nonfocal. EXTREMITIES: Bilateral lower extremity wrapped in dressings. Principal Diagnosis COVID pneumonia: Discharge Exam General: A&Ox3 HENT: NCAT, MMM, EOMI Eyes: PERRLA Neck: Supple, normal range of motion CVS: normal rate and rhythm Resp: b/l decreased breath sounds likely secondary to body habitus Abdomen: Soft, ND/NT, +BS Extremities: No c/c/e Neuro: face symmetric, strength grossly equal, no focal deficit Skin: warm and dry, no rashes/lesions/errythema MSK: normal ROM, no joint swelling/erythema Discharge Data Allergies Allergy/AdvReac Type Severity Reaction Status Date / Time heparin Allergy Severe HIT R/O Verified 07/06/20 11:16 from last hospital admission - rather was dx w/ ITP vancomycin Allergy Intermediate RASH Verified 07/06/20 11:16 doxycycline Allergy Mild Rash Verified 07/06/20 11:16 polymyxin B Allergy Mild Rash Verified 07/06/20 11:16 Pork/Porcine Containing Allergy Mild Rash Verified 07/06/20 11:16 Products tetracycline Allergy Mild RASH, Verified 07/06/20 11:16 PRURITIS amlodipine Allergy Unknown Unknown Verified 07/06/20 11:16 bacitracin Allergy Unknown Unknown Verified 07/06/20 11:16 sulfamethoxazole AdvReac Intermediate precipitates Verified 07/12/20 07:42 [From Bactrim] lupus per Rheumatology trimethoprim [From Bactrim] AdvReac Intermediate precipitates Verified 07/12/20 07:42 lupus per Rheumatology Ordered Studies 08/15/20 08:00 CT chest diagnostic w con Routine Hospital Course (1) Acute hypoxemic respiratory failure: Resolved prior to discharge. Prior to discharge patient was on room air with ambulation patient did not require any oxygenation. (2) Pneumonia due to COVID-19 virus: Patient completed course of remdesivir/Decadron. (3) Hypercoagulable state: h/o antiphospholipid antibody syndrome with a h/o DVT in the past. Cont Eliquis BID at discharge (4) Anemia: Remained stable. Started on iron therapy. Needs to follow-up with PCP for further evaluation. (5) Venous stasis ulcers of both lower extremities: Came in with wraps that were removed and rewrapped by wound care. (6) HTN (hypertension): Controlled on current therapy including losartan and Lasix. (7) SLE (systemic lupus erythematosus): h/o SLE with arthritis. She also has a h/o ITP treated with rituximab in 2013. She had a h/o DVT and PE and is s/p IVC filter. She was on coumadin until 2017 when she was changed to Eliquis because of difficulty maintaining in the treatment range INR. At the time Eliquis was initiated by her school clerk her BMI was 47. She is notably obese, which may lead to decreased drug absorption per some recommendations. As this was recommended by her school clerk, would continue her on this for now. Her daily low dose prednisone was held while giving decadron. At discharge, her [employer] OFFIC[employer] dose of prednisone was resumed. (8) Morbid obesity: Lifestyle changes recommended for overall better health. Total Time Total Time Spent Total Time Spent (In Minutes): 35 Discharge Plan Discharge Items Patient Disposition: Home - Self-Care Reason For Visit: SOB Discharge Diagnosis: Pneumonia due to COVID-19 virus: Activity: Resume your previous activity Non-emergency contact: Primary Care Provider Call non-emergency contact if: your symptoms worsen Follow-up/Referrals: Deborah Muñoz DO [Primary Care Provider] - (Date & Time 08/22/2020 11:00 AM Provider Deborah Muñoz DO Department [facility] PLEASE NOTE THAT THIS IS A TELEVIDEO APPOINTMENT. PLEASE FOLLOW THE INSTRUCTIONS PROVIDED IN YOUR EMAIL. IF YOU HAVE ANY QUESTIONS REGARDING THIS APPOINTMENT, PLEASE CALL ) Diet: Heart Healthy Addtl Attending Provider Instructions: Continue with your routine medications. No medications were changed. Follow-up with your primary care physician within 1 week. An appointment has been requested. Pending Studies at Discharge: No Stand-Alone Forms: My [facility] trend.ly, Smoking Cessation Medications and DC Order Prescriptions: New ferrous sulfate 325 mg (65 mg iron) Tablet,Delayed Release (Dr/Ec) 325 mg PO BIDM Qty: 60 RF: 0 Continued acetaminophen [Tylenol Extra Strength] 500 mg tablet 1,000 mg PO Q8H PRN (Reason: Pain) RF: 0 apixaban [Eliquis] 5 mg tablet 5 mg PO BID RF: 0 belimumab [Benlysta] 400 mg recon soln 1,200 mg IV UD RF: 0 calcium carbonate [Calcium 500] 500 mg calcium (1,250 mg) tablet,chewable 1,000 mg PO QAM RF: 0 calcium carbonate-vitamin D3 [Os-Marco A 500 + D3] 500 mg(1,250mg) -200 unit tablet 1 tab PO QAM RF: 0 diphenhydramine HCl [Allergy (diphenhydramine)] 25 mg tablet 25 mg PO Q6H PRN (Reason: itching) RF: 0 fluticasone propionate [Flonase Allergy Relief] 50 mcg/actuation spray,suspension 2 sprays INTNAS BID RF: 0 folic acid 1 mg tablet 1 mg PO QAM RF: 0 hydroxychloroquine [Plaquenil] 200 mg tablet 400 mg PO PM RF: 0 multivitamin with minerals capsule 1 cap PO QAM RF: 0 prednisone 5 mg tablet 5 mg PO QAM RF: 0 sodium chloride [Saline Nasal] 0.65 % aerosol,spray 2 sprays INTNAS QPM RF: 0 sertraline [Zoloft] 100 mg tablet 100 mg PO QAM RF: 0 trazodone 50 mg tablet 100 mg PO HS RF: 0 losartan 100 mg Tablet 100 mg PO QAM RF: 0 furosemide 20 mg tablet 40 mg PO QAM Qty: 0 RF: 0 metoprolol succinate 25 mg tablet extended release 24 hr 25 mg PO BID Qty: 0 RF: 0 Discharge Orders: Discharge Order (Routine); Ordered 08/20/20 Ordered By: Brii Agarwal Admission Data Admit Date/Time: 08/14/20 06:11 Attending Provider: Brii Agarwal Admit Provider: Haresh Watts Primary Care Provider: Deborah Muñoz
[2020-08-20] MEDS: traMADol HCL 50 MG TABLET PO PRN (15:10)
== END 2020-08-20 17:14 | disposition home health service (06) | DRG 177 ==
LOC: ED 03:12 → SUATTDRO 06:11 → 2E 07:33

== ENCOUNTER 2024-04-11 12:03 | Inpatient (IN) ==
--- NOTE | 2024-04-11 12:47 | Emergency Department Note ---
Impression & Plan Chest pain, Nausea & vomiting ED Provider Note NAME: DISHA CHURCH AGE: 58 SEX: F : 1965 ARRIVES VIA: Ambulance INFORMANT: Patient ED PROVIDER(S): Bennett Campbell DO CHIEF COMPLAINT: Chest pain HPI: Patient is a 58-year-old female who presents to the ER for chest tightness. She has a past medical history of lupus and hypercoagulable state, hypoxic respiratory failure, morbid obesity, SVT, ITP, CHF, hypertension, CKD on apixaban who presents to the ER for chest tightness that started this morning. It worsens with exertion and improves with rest. Describes as tightness on the left chest. She denies any arm pain but admits to right jaw pain which started recently as she also has right ear pain. He was referred in by the wound care clinic for elevated blood pressures and chest tightness. She was given aspirin per EMS. She notes she also received nitro and her pain got better via EMS. ADDITIONAL HISTORY OBTAINED: Per HPI Chronic Medical/Social Conditions Affecting Care: Per HPI PAST MEDICAL HISTORY:See Below PAST SURGICAL HISTORY:See Below FAMILY HISTORY:See Below SOCIAL HISTORY:See Below HOME MEDICATIONS:See Below ALLERGIES:See Below VITALS:See Below PHYSICAL EXAMINATION: GENERAL: Sitting up in bed, alert, well appearing, well nourished, no distress, non-toxic EYE EXAM: normal conjunctiva. PERRL and EOM's grossly intact. OROPHARYNX: no exudate, no erythema, lips, buccal mucosa, and tongue normal and mucous membranes are moist NECK: supple, no nuchal rigidity, no adenopathy, non-tender LUNGS: Clear to auscultation. Normal chest wall mechanics HEART: no murmurs, S1 normal and S2 normal ABDOMEN: abdomen soft, non-tender, normo-active bowel sounds, no masses, no rebound or guarding. BACK: Back is symmetrical on inspection and there is no deformity, no midline tenderness, no CVA tenderness. SKIN: no rashes and no bruising UPPER EXTREMITIES: upper extremities are grossly normal. LOWER EXTREMITIES: No pitting edema. NEURO EXAM: Normal sensorium, cranial nerves II-XII grossly intact, normal speech, no gross weakness of arms, no gross weakness of legs. MEDICAL DECISION MAKING: Patient is a 58-year-old female who presents ER with a past medical history of CHF and hypertension for chest pain which is worse with exertion and improves with rest associate with shortness of breath. It was relieved with nitro. IV was established and blood work was obtained. Labs show no significant leukocytosis or anemia. BMP along with LFTs bilirubin and lipase was unremarkable. Troponin was negative. EKG was nondiagnostic. Chest x-ray was clean. She was given nitro and pain improved. Received aspirin prior to arrival per report from EMS. Patient did have 2 episodes of vomiting while in the ER was given Zofran. She had no belly pain. Discussed case with the hospitalist that she was moderate risk per heart score for further evaluation management treatment. Consults/Care Managements Discussions: Per [facility] Triage Nursing notes reviewed. Limited review of prior medical records performed Vital Signs: reviewed and remarkable for HTN Differential diagnosis: Cardiac ischemia, aortic dissection, pulmonary embolism, pneumothorax, pneumonia, pericarditis, myocarditis, esophageal rupture, GERD, cholecystitis, pancreatitis, musculoskeletal, as well as other pathologies. ER treatment provided: See below Diagnostics interpreted by me include EKG and cardiac monitoring as listed below: -Cardiac Monitoring: An order was placed for continuous cardiac monitoring. The monitor shows a rate of 60 with sinus rhythm. -ECG: Sinus rhythm rate of 56 Normal axis T wave inversions in the inferior leads QTc 459 T wave inversion in lead III is new in comparison to old -Laboratory studies:Interpreted by me as stated above in MDM and shown below. Imaging studies: Xrays: As interpreted by me: Portable AP upright 1 view of the chest shows no focal infiltrate CTs show: none Procedures:none Critical Care: None Past Med/Surg History Problem List (Updated 04/11/24 @ 18:17 by Bennett Campbell DO) Nausea & vomiting (Acute) Chest pain (Acute) Lupus (Chronic) Venous ulcers of both lower extremities (Acute) Allergy to multiple antibiotics Proteus infection MRSA infection Toenail deformity Nasal congestion (Acute) Cough (Acute) SLE (systemic lupus erythematosus) DVT prophylaxis Acute hypoxemic respiratory failure Pneumonia due to COVID-19 virus Acute dyspnea (Acute) Respiratory failure with hypoxia (Acute) COVID-19 (Acute) Obesity (Acute) Anemia (Acute) Morbid obesity History of MRSA infection SVT (supraventricular tachycardia) (Acute) Leg wound, left (Acute) Leg wound, right (Acute) Infection of wound due to methicillin resistant Staphylococcus aureus (MRSA) (Acute) Lupus 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 positive (Chronic) Protein C deficiency History of idiopathic thrombocytopenic purpura (Chronic) intermediate 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 tender current use of 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 (Acute) S/P appendectomy (Chronic) Systemic lupus erythematosus (Chronic) Chronic combined systolic and diastolic CHF (congestive heart failure) Antiphospholipid antibody syndrome History of pulmonary embolism (Chronic) HTN (hypertension) (Chronic) Venous stasis ulcers of both lower extremities (Acute) Chronic venous insufficiency (Chronic) GERD (gastroesophageal reflux disease) (Chronic) Depression (Chronic) CKD (chronic kidney disease), stage III (Chronic) Hypercoagulable state (Chronic) "protein C deficiency, positive phospholipid AB syndrome, positive lupus 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" Medical History Pancytopenia Protein S deficiency Pulmonary embolism Ovarian cyst Hyperlipidemia Chaim filter in place Diabetes DVT (deep venous thrombosis) HTN (hypertension) Surgical History History of inferior vena caval filter placement History of dilatation and curettage H/O tooth extraction S/P hysterectomy S/P cholecystectomy S/P section H/O exploratory laparotomy H/O hernia repair Family History Mother Colorectal cancer Pulmonary embolism Grandfather Cancer Social History Smoking Status: Never smoker Second Hand Exposure: No; Do You Dip or Chew Tobacco: No; Hx Alcohol Use: No Hx Substance Use: No Preferred Language: Czech Communication Ability: Effective 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 Required: No Beliefs That Will Affect Care: None marital status: Single Current Living Situation: Family Current Living Situation Comment: lives at home with daughter Other Information That Helps Us Care for You: No Feels Safe at Home: Yes Safety Concerns: Feels Safe At This Time Assistive Devices: None Allergies Allergies Allergy/AdvReac Type Severity Reaction Status Date / Time heparin Allergy Severe HIT R/O Verified 04/11/24 11:45 from last hospital admission - rather was dx w/ ITP vancomycin Allergy Intermediate RASH Verified 04/11/24 11:45 doxycycline Allergy Mild Rash Verified 04/11/24 11:45 polymyxin B Allergy Mild Rash Verified 04/11/24 11:45 Pork/Porcine Containing Allergy Mild Rash Verified 04/11/24 11:45 Products tetracycline Allergy Mild RASH, Verified 04/11/24 11:45 PRURITIS amlodipine Allergy Unknown Unknown Verified 04/11/24 11:45 bacitracin Allergy Unknown Unknown Verified 04/11/24 11:45 sulfamethoxazole AdvReac Intermediate precipitates Verified 04/11/24 11:45 [From Bactrim] lupus per Rheumatology trimethoprim [From Bactrim] AdvReac Intermediate precipitates Verified 04/11/24 11:45 lupus per Rheumatology Home Meds Home Medications Medication Instructions Recorded Confirmed acetaminophen 500 mg tablet 1,000 mg PO Q8H PRN Pain 01/05/18 04/11/24 (Tylenol Extra Strength) apixaban 5 mg tablet (Eliquis) 5 mg PO BID 01/05/18 04/11/24 calcium 500 mg (as 1 tab PO QAM 01/05/18 04/11/24 carbonate)-vitamin D3 5 mcg (200 unit) tablet (Os-Marco A 500 + D3) calcium carbonate (Calcium 500) 1,000 mg PO QAM 01/05/18 04/11/24 fluticasone propionate 50 2 sprays intranasal BID 01/05/18 04/11/24 mcg/actuation nasal spray,suspension (Flonase Allergy Relief) folic acid 1 mg tablet 1 mg PO QAM 01/05/18 04/11/24 hydroxychloroquine 200 mg tablet 400 mg PO PM 01/05/18 04/11/24 (Plaquenil) multivitamin with minerals 1 cap PO QAM 01/05/18 04/11/24 prednisone 5 mg tablet 5 mg PO QAM 01/05/18 04/11/24 sertraline 100 mg tablet (Zoloft) 100 mg PO QAM 01/05/18 04/11/24 sodium chloride 0.65 % nasal spray 2 sprays intranasal QPM 01/05/18 04/11/24 aerosol (Saline Nasal) trazodone 50 mg tablet 100 mg PO HS 01/05/18 04/11/24 losartan 100 mg tablet 100 mg PO QAM 12/11/18 04/11/24 omeprazole 20 mg capsule,delayed 20 mg PO DAILY 08/26/21 04/11/24 release belimumab 400 mg intravenous 1,200 mg IV UD 10/08/21 04/11/24 solution (Benlysta) Previous Rx's Medication Instructions Recorded furosemide 20 mg tablet 40 mg (2 x 20 mg) PO QAM #0 tabs 02/28/20 metoprolol succinate 25 mg 25 mg PO BID #0 tabs 02/28/20 tablet,extended release 24 hr ferrous sulfate 325 mg (65 mg 325 mg PO BIDM #60 tabs 08/20/20 iron) tablet,delayed release Results & Data (ED) Vital Signs Vital Signs - 24 hr 04/11/24 12:13 04/11/24 12:16 04/11/24 12:17 Temperature 36.7 C Temperature Source Oral Pulse Rate 58 L Pulse Rate [Apical] 58 L Pulse Rate from SpO2 Sensor Pulse Rhythm Regular Pulse Strength Normal Respiratory Rate 20 14 Respiratory Effort / Characteristics Non-Labored Spontaneous Non-Labored Spontaneous Respiratory Depth Normal Normal Respiratory Pattern Regular Regular Blood Pressure 197/107 H Blood Pressure [Right Arm] 213/99 H Blood Pressure Mean 137 Blood Pressure Mean [Right Arm] 137 Blood Pressure Position Semi-fowlers Blood Pressure Position [Right Arm] Semi-fowlers Pulse Oximetry 98 98 98 Oxygen Delivery Method Room Air Room Air Room Air Sepsis Recent Fever Within 48 Hours No Sepsis New/Unexplained Change in Mental Status No Sepsis Action Taken by Nursing No Action Required 04/11/24 12:38 04/11/24 12:40 04/11/24 12:52 Temperature Temperature Source Pulse Rate 59 L 51 L Pulse Rate [Apical] 50 L Pulse Rate from SpO2 Sensor Pulse Rhythm Pulse Strength Respiratory Rate 17 14 Respiratory Effort / Characteristics Non-Labored Spontaneous Respiratory Depth Normal Respiratory Pattern Regular Blood Pressure Blood Pressure [Right Arm] 189/97 H Blood Pressure Mean Blood Pressure Mean [Right Arm] 127 Blood Pressure Position Blood Pressure Position [Right Arm] Semi-fowlers Pulse Oximetry 97 97 Oxygen Delivery Method Room Air Room Air Sepsis Recent Fever Within 48 Hours Sepsis New/Unexplained Change in Mental Status Sepsis Action Taken by Nursing 04/11/24 13:01 04/11/24 13:12 04/11/24 13:14 Temperature Temperature Source Pulse Rate 55 L Pulse Rate [Apical] Pulse Rate from SpO2 Sensor 55 L Pulse Rhythm Pulse Strength Respiratory Rate 15 Respiratory Effort / Characteristics Respiratory Depth Respiratory Pattern Blood Pressure 176/98 H Blood Pressure [Right Arm] 176/98 H Blood Pressure Mean 115 Blood Pressure Mean [Right Arm] 124 Blood Pressure Position Blood Pressure Position [Right Arm] Pulse Oximetry 97 Oxygen Delivery Method Room Air Sepsis Recent Fever Within 48 Hours Sepsis New/Unexplained Change in Mental Status Sepsis Action Taken by Nursing 04/11/24 13:21 04/11/24 13:30 04/11/24 13:39 Temperature Temperature Source Pulse Rate 47 L 74 52 L Pulse Rate [Apical] Pulse Rate from SpO2 Sensor 48 L 52 L Pulse Rhythm Pulse Strength Respiratory Rate 20 14 22 Respiratory Effort / Characteristics Respiratory Depth Respiratory Pattern Blood Pressure Blood Pressure [Right Arm] Blood Pressure Mean Blood Pressure Mean [Right Arm] Blood Pressure Position Blood Pressure Position [Right Arm] Pulse Oximetry 97 97 Oxygen Delivery Method Sepsis Recent Fever Within 48 Hours Sepsis New/Unexplained Change in Mental Status Sepsis Action Taken by Nursing 04/11/24 13:49 04/11/24 14:00 04/11/24 14:01 Temperature Temperature Source Pulse Rate Pulse Rate [Apical] 51 L 49 L Pulse Rate from SpO2 Sensor Pulse Rhythm Pulse Strength Respiratory Rate 20 15 Respiratory Effort / Characteristics Non-Labored Spontaneous Respiratory Depth Normal Normal Respiratory Pattern Regular Blood Pressure 195/91 H Blood Pressure [Right Arm] 164/87 H 195/91 H Blood Pressure Mean 135 Blood Pressure Mean [Right Arm] 112 125 Blood Pressure Position Blood Pressure Position [Right Arm] Pulse Oximetry 98 96 Oxygen Delivery Method Room Air Room Air Sepsis Recent Fever Within 48 Hours Sepsis New/Unexplained Change in Mental Status Sepsis Action Taken by Nursing 04/11/24 14:03 04/11/24 14:21 04/11/24 14:30 Temperature Temperature Source Pulse Rate 47 L 48 L Pulse Rate [Apical] Pulse Rate from SpO2 Sensor 49 L 49 L Pulse Rhythm Pulse Strength Respiratory Rate 17 19 Respiratory Effort / Characteristics Respiratory Depth Respiratory Pattern Blood Pressure 195/85 H Blood Pressure [Right Arm] Blood Pressure Mean 146 Blood Pressure Mean [Right Arm] Blood Pressure Position Blood Pressure Position [Right Arm] Pulse Oximetry 97 96 Oxygen Delivery Method Sepsis Recent Fever Within 48 Hours Sepsis New/Unexplained Change in Mental Status Sepsis Action Taken by Nursing 04/11/24 14:33 04/11/24 14:42 04/11/24 14:54 Temperature Temperature Source Pulse Rate 54 L 48 L Pulse Rate [Apical] 51 L Pulse Rate from SpO2 Sensor 53 L 50 L Pulse Rhythm Pulse Strength Respiratory Rate 18 19 19 Respiratory Effort / Characteristics Non-Labored Spontaneous Respiratory Depth Normal Respiratory Pattern Regular Blood Pressure Blood Pressure [Right Arm] 195/85 H Blood Pressure Mean Blood Pressure Mean [Right Arm] 121 Blood Pressure Position Blood Pressure Position [Right Arm] Semi-fowlers Pulse Oximetry 95 95 96 Oxygen Delivery Method Room Air Sepsis Recent Fever Within 48 Hours Sepsis New/Unexplained Change in Mental Status Sepsis Action Taken by Nursing 04/11/24 14:57 04/11/24 15:00 04/11/24 15:00 Temperature Temperature Source Pulse Rate 51 L Pulse Rate [Apical] Pulse Rate from SpO2 Sensor 51 L Pulse Rhythm Pulse Strength Respiratory Rate 17 Respiratory Effort / Characteristics Respiratory Depth Respiratory Pattern Blood Pressure 193/88 H 193/88 H Blood Pressure [Right Arm] Blood Pressure Mean 124 124 Blood Pressure Mean [Right Arm] Blood Pressure Position Blood Pressure Position [Right Arm] Pulse Oximetry 96 Oxygen Delivery Method Sepsis Recent Fever Within 48 Hours Sepsis New/Unexplained Change in Mental Status Sepsis Action Taken by Nursing 04/11/24 15:01 04/11/24 15:03 04/11/24 15:15 Temperature Temperature Source Pulse Rate 50 L 52 L Pulse Rate [Apical] 50 L Pulse Rate from SpO2 Sensor 50 L 51 L Pulse Rhythm Pulse Strength Respiratory Rate 19 18 18 Respiratory Effort / Characteristics Non-Labored Spontaneous Respiratory Depth Normal Respiratory Pattern Regular Blood Pressure Blood Pressure [Right Arm] 193/88 H Blood Pressure Mean Blood Pressure Mean [Right Arm] 123 Blood Pressure Position Blood Pressure Position [Right Arm] Pulse Oximetry 96 95 94 Oxygen Delivery Method Room Air Sepsis Recent Fever Within 48 Hours Sepsis New/Unexplained Change in Mental Status Sepsis Action Taken by Nursing 04/11/24 15:24 04/11/24 15:27 04/11/24 15:31 Temperature Temperature Source Pulse Rate 52 L 71 71 Pulse Rate [Apical] Pulse Rate from SpO2 Sensor 52 L Pulse Rhythm Pulse Strength Respiratory Rate 18 19 19 Respiratory Effort / Characteristics Respiratory Depth Respiratory Pattern Blood Pressure 189/82 H Blood Pressure [Right Arm] Blood Pressure Mean 96 Blood Pressure Mean [Right Arm] Blood Pressure Position Blood Pressure Position [Right Arm] Pulse Oximetry 93 93 Oxygen Delivery Method Room Air Sepsis Recent Fever Within 48 Hours Sepsis New/Unexplained Change in Mental Status Sepsis Action Taken by Nursing Laboratory Data 04/11/24 12:39 04/11/24 12:39 Lab Results 04/11/24 Range/Units 12:39 WBC 8.61 (4.8-10.8) K/ul RBC 4.97 (4.20-5.40) M/uL Hgb 13.4 (12.0-16.0) g/dl Hct 41.8 (37.0-47.0) % MCV 84.1 (80.0-100.0) fL MCH 27.0 (25.0-34.0) pg MCHC 32.1 (32.0-36.0) g/dL RDW Std Deviation 42.7 (36.4-46.3) fL RDW Coeff of [place] 13.9 (11.5-14.5) % Plt Count 255 (130-400) K/uL MPV 9.4 (9.4-12.4) fL Immature Gran % (Auto) 0.9 % Neut % (Auto) 73.9 % Lymph % (Auto) 16.8 % [place] % (Auto) 7.2 % Eos % (Auto) 0.7 % Baso % (Auto) 0.5 % Neut # (Auto) 6.36 (1.40-6.50) K/uL Lymph # (Auto) 1.45 (1.20-3.40) K/uL [place] # (Auto) 0.62 H (0.11-0.59) K/uL Eos # (Auto) 0.06 (0.00-0.50) K/uL Baso # (Auto) 0.04 (0.00-0.20) K/uL Immature Gran # (Auto) 0.08 (0.01-0.20) K/uL Sodium 138 (136-145) mmol/L Potassium 3.5 (3.5-5.1) mmol/L Chloride 107 (98-107) mmol/L Carbon Dioxide 23 (21-32) mmol/L Anion Gap 8 (3-11) BUN 10 (6-23) mg/dl Creatinine 0.70 (0.6-1.2) mg/dl Est Cr Clr Drug Dosing 125.8 ml/min eGFR 101.44 BUN/Creatinine Ratio 14.3 (10-20) Glucose 104 H (70-99(Fasting)) mg/dl Calcium 9.2 (8.6-10.3) mg/dl Total Bilirubin 0.5 (0.2-1.0) mg/dl AST 20 (13-39) U/L ALT 19 (7-52) U/L Alkaline Phosphatase 70 (34-104) U/L Troponin I High Sens 11.1 (0-14) pg/ml Total Protein 7.1 (6.0-8.3) gm/dl Albumin 4.4 (3.4-5.0) gm/dl Globulin 2.7 (2.5-4.0) gm/dl Albumin/Globulin Ratio 1.6 (0.9-2) Lipase 14 (11-82) U/L Administered Medications Acetaminophen (Acetaminophen 500 Mg Tab) 1,000 mg PO Q8H PRN PRN Reason: Pain Stop: 05/11/24 16:26 Last Admin: 04/11/24 17:13 Dose: 1,000 mg Documented By: MICHAEL Ciprofloxacin/Hydrocortisone (Cipro 0.2%/Hydrocortisone 1% Otic Susp 10 Ml Btl) 3 drops OTR BID [facility] Stop: 05/11/24 16:44 Last Admin: 04/11/24 17:14 Dose: 3 drops Documented By: MICHAEL Ferrous Sulfate (Ferrous Sulfate 325 Mg Tab) 325 mg PO BIDM [facility] Stop: 05/11/24 16:59 Last Admin: 04/11/24 17:15 Dose: 325 mg Documented By: MICHAEL Discontinued Medications Nitroglycerin (Nitroglycerin Sl 0.4 Mg/Tab Tab) 0.4 mg SL NOW STA Stop: 04/11/24 12:43 Last Admin: 04/11/24 12:56 Dose: 0.4 mg Documented By: NAJMA Nitroglycerin (Nitroglycerin Sl 0.4 Mg/Tab Tab) 0.4 mg SL NOW STA Stop: 04/11/24 13:53 Last Admin: 04/11/24 14:03 Dose: 0.4 mg Documented By: NAJMA Ondansetron HCl (Ondansetron Inj 2 Mg/Ml 2 Ml Vial) 4 mg IV NOW STA Stop: 04/11/24 13:45 Last Admin: 04/11/24 13:48 Dose: 4 mg Documented By: NAJMA Imaging Data Radiologist's Impression: Chest X-Ray 04/11/24 12:29 XR chest 1V portable CLINICAL HISTORY: Chest pain, nonspecific COMPARISON STUDY: Chest CT August 15, 2020. Chest radiograph June 14, 2023. FINDINGS: Lung volumes are normal. Lungs are clear. There is no pneumothorax or pleural effusion. Cardiac size is stable. Mediastinal contours are normal. There is no evidence for pulmonary edema. Subtle interstitial thickening is unchanged. IMPRESSION: No acute cardiopulmonary findings. No significant change in appearance of the chest. ACT 112: Negative or not required by law. Electronically signed by: Gama Alexander M.D. 04/11/2024 1:24 PM Discharge Plan Visit Data Chief Complaint: Chest Pain ED Provider: Bennett Campbell Discharge Problem: Chest pain, Nausea & vomiting Patient Disposition: Admitted As Inpatient Discharge Instructions Interventions: ED Discharge Assessment Last Done: 04/11/24 15:43 Discharge Problem: Chest pain Qualifiers: Chest pain type: unspecified Qualified Code(s): R07.9 - Chest pain, unspecified Nausea & vomiting Qualifiers: Vomiting type: unspecified Qualified Code(s): R11.2 - Nausea with vomiting, unspecified
[2024-04-11] MEDS: NITROGLYCERIN SL 0.4 MG/TAB TAB SL STA ×2 (12:56→14:03)
[2024-04-11 13:01] LABS: Basophils # (auto) 0.04 K/uL (0.00-0.20); Basophils % (auto) 0.5 %; Eosinophils # (auto) 0.06 K/uL (0.00-0.50); Eosinophils % (auto) 0.7 %; Hematocrit (blood only) 41.8 % (37.0-47.0); Hemoglobin 13.4 g/dl (12.0-16.0); Immature Granulocytes # (auto) 0.08 K/uL (0.01-0.20); Immature Granulocytes % (auto) 0.9 %; Lymphocytes # (auto) 1.45 K/uL (1.20-3.40); Lymphocytes % (auto) 16.8 %; Mean Corpuscular Hgb Conc 32.1 g/dL (32.0-36.0); Mean Corpuscular Volume 84.1 fL (80.0-100.0); Mean Platelet Volume 9.4 fL (9.4-12.4); Monocytes # (auto) 0.62 K/uL (0.11-0.59); Monocytes % (auto) 7.2 %; Neutrophils # (auto) 6.36 K/uL (1.40-6.50); Neutrophils % (auto) 73.9 %; Platelet Count 255 K/uL (130-400); RDW Coefficient of Variation 13.9 % (11.5-14.5); RDW Standard Deviation 42.7 fL (36.4-46.3); Red Blood Count 4.97 M/uL (4.20-5.40); White Blood Count 8.61 K/ul (4.8-10.8)
[2024-04-11 13:18] LABS: Albumin Globulin Ratio 1.6 (0.9-2); Albumin Level 4.4 gm/dl (3.4-5.0); BUN Creatinine Ratio 14.3 (10-20); Bilirubin,Total 0.5 mg/dl (0.2-1.0); Calcium 9.2 mg/dl (8.6-10.3); Creatinine Clr Calc Pharmacy 125.8 ml/min; Globulin 2.7 gm/dl (2.5-4.0); Potassium 3.5 mmol/L (3.5-5.1); Total Protein 7.1 gm/dl (6.0-8.3)
[2024-04-11 13:24] LABS: Troponin I High Sensitivity 11.1 pg/ml (0-14)
--- NOTE | 2024-04-11 13:26 | XRay Report ---
XR chest 1V portable CLINICAL HISTORY: Chest pain, nonspecific COMPARISON STUDY: Chest CT August 15, 2020. Chest radiograph June 14, 2023. FINDINGS: Lung volumes are normal. Lungs are clear. There is no pneumothorax or pleural effusion. Car diac size is stable. Mediastinal contours are normal. There is no evidence for pulmonary edema. Subtl e interstitial thickening is unchanged. IMPRESSION: No acute cardiopulmonary findings. No significant change in appearance of the chest. ACT 112: Negative or not required by law. Electronically signed by: Gama Alexander M.D. 04/11/2024 1:24 PM
[2024-04-11] MEDS: ONDANSETRON INJ 2 MG/ML 2 ML VIAL IV STA (13:48)
--- NOTE | 2024-04-11 14:08 | Electrocardiogram Report ---
Test Reason : Blood Pressure : */* mmHG Vent. Rate : 56 BPM Atrial Rate : 56 BPM P-R Int : 156 ms QRS Dur : 114 ms QT Int : 476 ms P-R-T Axes : 27 13 13 degrees QTcB Int : 459 ms Sinus bradycardia Minimal voltage criteria for LVH, may be normal variant Cannot rule out Anterior infarct (cited on or before 02-Oct-2018) Abnormal ECG When compared with ECG of 14-Jun-2023 18:56, Vent. rate has decreased by 44 bpm QRS axis Shifted right Questionable change in initial forces of Anterolateral leads T wave inversion now evident in Inferior leads Confirmed by Grover Ackerman ([id number]) on 04/11/2024 2:08:38 PM Referred By: Confirmed By: Grover Ackerman
--- NOTE | 2024-04-11 14:29 | History & Physical Report ---
<Statement entered by Jarod Lucio, DO - 04/11/24 15:01> I have seen and examined the patient and have discussed the case with the provider above. I have reviewed the advanced practitioner's documentation, and I agree with, and take responsibility for that plan of care. Patient seen and examined while still in ED. Patient reports that her chest pain has now resolved. She states that she has had some intermittent chest pain prior to today but it has not been nearly as severe as it was today. She denies any chest pain with exertion prior to today. She states that usually her blood pressure is fairly well-controlled with systolic systolics in the 120-130 range Physical exam: Lungs: Clear to auscultation CV: S1-S2 bradycardic Reviewed diagnostics Troponin negative x 1 Patient with known systolic congestive heart failure presents with chest pain associated with significant hypertension. She also has numerous risk factors for coronary artery disease. History is somewhat consistent with unstable angina. Suspect observed borderline bradycardia is most likely due to her beta- maria elena. Continue her on her home antihypertensives, may need some additional medications for blood pressure control Agree with cardiology consultation with anticipated stress testing to be done either inpatient versus outpatient Discussed plan of care as outlined below. Date of Service April 11, 2024 Assessment & Plan (1) Lupus: (2) Venous ulcers of both lower extremities: (3) DVT prophylaxis: (4) SLE (systemic lupus erythematosus): (5) Leg wound, left: (6) Leg wound, right: (7) Protein C deficiency: (8) Chronic combined systolic and diastolic CHF (congestive heart failure): (9) HTN (hypertension): (10) CKD (chronic kidney disease), stage III: (11) Hypercoagulable state: Plan Assessment and plan: Left-sided chest pain Hypertensive urgency: Chest x-ray unremarkable, initial troponin negative EKG with T wave inversions in anterior leads, currently chest pain-free Check echo, n.p.o. after midnight for stress test, consult cardiology, trend troponins Telemetry monitoring, continue metoprolol/losartan, as needed hydralazine for SBP over 160 Hx of lupus/protein C deficiency: On outpatient infusions, continue Plaquenil/prednisone/continue Eliquis Hx acute on chronic combined systolic and diastolic CHF: Appears euvolemic on exam, continue home Lasix, strict I&O, daily weights Hx of chronic bilateral venous stasis ulcers lower extremities: Follows with the wound care center, consult wound care nursing while inpatient Full code DVT prophylaxis: [place] A total of 60 minutes was spent on chart review/reviewing of diagnostic data/facilitating plan of care/discussion with consultants History of Present Illness Chief Complaint: Chest pain, left-sided Primary Care Provider: Lorena Jones PA-C The patient is a 58-year-old female with a past medical history of lupus, antiphospholipid antibody syndrome, protein C deficiency, ITP, HTN, chronic venous stasis ulcers, lymphedema, CKD stage III, obesity who presented to the ED on 04/11/2024 with complaints of left-sided chest pain. Patient reports she woke up this morning at 730 and has some left-sided chest pain that worsened with exertion. She denies any radiation to her arm or jaw. She went to the wound care center to have wound care done for her bilateral lower extremity chronic venous stasis ulcers and was sent to the ER with concerns of left-sided chest pain and SBP's in the 200s. On arrival to the ED, her chest pain was improved, she received nitro and aspirin. She received a second dose of nitro in the ER. She is not hypoxic on arrival. On exam, the patient is chest pain-free, she is not short of breath. She does report some nausea and vomiting since she arrived at the hospital but denies any diarrhea, denies any recent respiratory illness, does report some right sided ear pain that she attempted to be seen for. Reports following with an outpatient receivable manager for blood pressure management. She is on chronic anticoagulation with history of antiphospholipid syndrome. On arrival to the ED, her labs are fairly unremarkable. Chest x-ray was negative. EKG showed some T wave inversions in anterior leads, initial troponin negative Reports compliance with medications at home. Patient will be admitted for further chest pain workup. Allergies Allergy/AdvReac Type Severity Reaction Status Date / Time heparin Allergy Severe HIT R/O Verified 04/11/24 11:45 from last hospital admission - rather was dx w/ ITP vancomycin Allergy Intermediate RASH Verified 04/11/24 11:45 doxycycline Allergy Mild Rash Verified 04/11/24 11:45 polymyxin B Allergy Mild Rash Verified 04/11/24 11:45 Pork/Porcine Containing Allergy Mild Rash Verified 04/11/24 11:45 Products tetracycline Allergy Mild RASH, Verified 04/11/24 11:45 PRURITIS amlodipine Allergy Unknown Unknown Verified 04/11/24 11:45 bacitracin Allergy Unknown Unknown Verified 04/11/24 11:45 sulfamethoxazole AdvReac Intermediate precipitates Verified 04/11/24 11:45 [From Bactrim] lupus per Rheumatology trimethoprim [From Bactrim] AdvReac Intermediate precipitates Verified 04/11/24 11:45 lupus per Rheumatology Home Medications Medication Instructions Recorded Confirmed Type acetaminophen 500 mg tablet 1,000 mg PO Q8H PRN Pain 01/05/18 04/11/24 History (Tylenol Extra Strength) apixaban 5 mg tablet (Eliquis) 5 mg PO BID 01/05/18 04/11/24 History calcium 500 mg (as 1 tab PO QAM 01/05/18 04/11/24 History carbonate)-vitamin D3 5 mcg (200 unit) tablet (Os-Marco A 500 + D3) calcium carbonate (Calcium 500) 1,000 mg PO QAM 01/05/18 04/11/24 History fluticasone propionate 50 2 sprays intranasal BID 01/05/18 04/11/24 History mcg/actuation nasal spray,suspension (Flonase Allergy Relief) folic acid 1 mg tablet 1 mg PO QAM 01/05/18 04/11/24 History hydroxychloroquine 200 mg tablet 400 mg PO PM 01/05/18 04/11/24 History (Plaquenil) multivitamin with minerals 1 cap PO QAM 01/05/18 04/11/24 History prednisone 5 mg tablet 5 mg PO QAM 01/05/18 04/11/24 History sertraline 100 mg tablet (Zoloft) 100 mg PO QAM 01/05/18 04/11/24 History sodium chloride 0.65 % nasal spray 2 sprays intranasal QPM 01/05/18 04/11/24 History aerosol (Saline Nasal) trazodone 50 mg tablet 100 mg PO HS 01/05/18 04/11/24 History losartan 100 mg tablet 100 mg PO QAM 12/11/18 04/11/24 History furosemide 20 mg tablet 40 mg (2 x 20 mg) PO QAM #0 tabs 02/28/20 04/11/24 Rx metoprolol succinate 25 mg 25 mg PO BID #0 tabs 02/28/20 04/11/24 Rx tablet,extended release 24 hr ferrous sulfate 325 mg (65 mg 325 mg PO BIDM #60 tabs 08/20/20 04/11/24 Rx iron) tablet,delayed release omeprazole 20 mg capsule,delayed 20 mg PO DAILY 08/26/21 04/11/24 History release belimumab 400 mg intravenous 1,200 mg IV UD 10/08/21 04/11/24 History solution (Benlysta) Past Med/Surg History Problem List (Updated 02/01/24 @ 13:09 by PAKO Hunter) Lupus (Chronic) Venous ulcers of both lower extremities (Acute) Allergy to multiple antibiotics Proteus infection MRSA infection Toenail deformity Nasal congestion (Acute) Cough (Acute) SLE (systemic lupus erythematosus) DVT prophylaxis Acute hypoxemic respiratory failure Pneumonia due to COVID-19 virus Acute dyspnea (Acute) Respiratory failure with hypoxia (Acute) COVID-19 (Acute) Obesity (Acute) Anemia (Acute) Morbid obesity History of MRSA infection SVT (supraventricular tachycardia) (Acute) Leg wound, left (Acute) Leg wound, right (Acute) Infection of wound due to methicillin resistant Staphylococcus aureus (MRSA) (Acute) Lupus 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 positive (Chronic) Protein C deficiency History of idiopathic thrombocytopenic purpura (Chronic) [facility] current use of 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 (Acute) S/P appendectomy (Chronic) Systemic lupus erythematosus (Chronic) Chronic combined systolic and diastolic CHF (congestive heart failure) Antiphospholipid antibody syndrome History of pulmonary embolism (Chronic) HTN (hypertension) (Chronic) Venous stasis ulcers of both lower extremities (Acute) Chronic venous insufficiency (Chronic) GERD (gastroesophageal reflux disease) (Chronic) Depression (Chronic) CKD (chronic kidney disease), stage III (Chronic) Hypercoagulable state (Chronic) "protein C deficiency, positive phospholipid AB syndrome, positive lupus 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" Medical History Pancytopenia Protein S deficiency Pulmonary embolism Ovarian cyst Hyperlipidemia Chaim filter in place Diabetes DVT (deep venous thrombosis) HTN (hypertension) Surgical History History of inferior vena caval filter placement History of dilatation and curettage H/O tooth extraction S/P hysterectomy S/P cholecystectomy S/P section H/O exploratory laparotomy H/O hernia repair Family History Mother Colorectal cancer Pulmonary embolism Grandfather Cancer Social History Smoking Status: Never smoker Second Hand Exposure: No; Do You Dip or Chew Tobacco: No; Hx Alcohol Use: No Hx Substance Use: No Preferred Language: Kinyarwanda Communication Ability: Effective Sash Clamp Operator Required: No Beliefs That Will Affect Care: None marital status: Single Current Living Situation: Other Current Living Situation Comment: Staying in hotel with friends until new apartment ready Feels Safe at Home: Yes Assistive Devices: None Review of Systems Review of Systems: All systems reviewed & are unremarkable except as noted in HPI & below Physical Exam Constitutional: WD/WN, vitals as above Eyes: PERRL, conjunctivae normal, anicteric sclerae ENMT: external ear and nose normal, oropharynx normal (Right ear with redness and pain) Neck: trachea midline, no thyromegaly Respiratory: normal respiratory effort, lungs clear to auscultation Gastrointestinal (Abdomen): normal bowel sounds, soft, nontender, no hepatosplenomegaly Musculoskeletal: no cyanosis or clubbing, extremities motor strength 5/5 Skin: no rashes, warm and dry Neurologic: PERRL, EOMI, accommodation nl, no face palsy, no dysarthria Psychiatric: A+Ox3, euthymic affect Results & Data Results & Data Vital Signs (Past 12 Hours) Vital Signs Temp Pulse Pulse Resp BP BP Pulse Ox 04/11/24 14:00 49 L 15 195/91 H 96 04/11/24 13:49 51 L 20 164/87 H 98 04/11/24 13:14 176/98 H 04/11/24 13:12 55 L 15 97 04/11/24 13:01 176/98 H 04/11/24 12:52 50 L 14 189/97 H 97 04/11/24 12:40 51 L 17 97 04/11/24 12:38 59 L 04/11/24 12:17 98 04/11/24 12:16 58 L 14 213/99 H 98 04/11/24 12:13 36.7 C 58 L 20 197/107 H 98 O2 Del Method 04/11/24 14:00 Room Air 04/11/24 13:49 Room Air 04/11/24 13:14 04/11/24 13:12 Room Air 04/11/24 13:01 04/11/24 12:52 Room Air 04/11/24 12:40 Room Air 04/11/24 12:38 04/11/24 12:17 Room Air 04/11/24 12:16 Room Air 04/11/24 12:13 Room Air Diagnostic Findings Laboratory Results WBC 8.61 K/ul (4.8-10.8) 04/11/24 12:39 RBC 4.97 M/uL (4.20-5.40) 04/11/24 12:39 Hgb 13.4 g/dl (12.0-16.0) 04/11/24 12:39 Hct 41.8 % (37.0-47.0) 04/11/24 12:39 MCV 84.1 fL (80.0-100.0) 04/11/24 12:39 MCH 27.0 pg (25.0-34.0) 04/11/24 12:39 MCHC 32.1 g/dL (32.0-36.0) 04/11/24 12:39 RDW Std Deviation 42.7 fL (36.4-46.3) 04/11/24 12:39 RDW Coeff of Eduardo 13.9 % (11.5-14.5) 04/11/24 12:39 Plt Count 255 K/uL (130-400) 04/11/24 12:39 MPV 9.4 fL (9.4-12.4) 04/11/24 12:39 Immature Gran % (Auto) 0.9 % 04/11/24 12:39 Neut % (Auto) 73.9 % 04/11/24 12:39 Lymph % (Auto) 16.8 % 04/11/24 12:39 [place] % (Auto) 7.2 % 04/11/24 12:39 Eos % (Auto) 0.7 % 04/11/24 12:39 Baso % (Auto) 0.5 % 04/11/24 12:39 Neut # (Auto) 6.36 K/uL (1.40-6.50) 04/11/24 12:39 Lymph # (Auto) 1.45 K/uL (1.20-3.40) 04/11/24 12:39 [place] # (Auto) 0.62 K/uL (0.11-0.59) H 04/11/24 12:39 Eos # (Auto) 0.06 K/uL (0.00-0.50) 04/11/24 12:39 Baso # (Auto) 0.04 K/uL (0.00-0.20) 04/11/24 12:39 Immature Gran # (Auto) 0.08 K/uL (0.01-0.20) 04/11/24 12:39 Sodium 138 mmol/L (136-145) 04/11/24 12:39 Potassium 3.5 mmol/L (3.5-5.1) 04/11/24 12:39 Chloride 107 mmol/L (98-107) 04/11/24 12:39 Carbon Dioxide 23 mmol/L (21-32) 04/11/24 12:39 Anion Gap 8 (3-11) 04/11/24 12:39 BUN 10 mg/dl (6-23) 04/11/24 12:39 Creatinine 0.70 mg/dl (0.6-1.2) 04/11/24 12:39 Est Cr Clr Drug Dosing 125.8 ml/min 04/11/24 12:39 eGFR 101.44 04/11/24 12:39 BUN/Creatinine Ratio 14.3 (10-20) 04/11/24 12:39 Glucose 104 mg/dl (70-99(Fasting)) H 04/11/24 12:39 Calcium 9.2 mg/dl (8.6-10.3) 04/11/24 12:39 Total Bilirubin 0.5 mg/dl (0.2-1.0) 04/11/24 12:39 AST 20 U/L (13-39) 04/11/24 12:39 ALT 19 U/L (7-52) 04/11/24 12:39 Alkaline Phosphatase 70 U/L (34-104) 04/11/24 12:39 Troponin I High Sens 11.1 pg/ml (0-14) 04/11/24 12:39 Total Protein 7.1 gm/dl (6.0-8.3) 04/11/24 12:39 Albumin 4.4 gm/dl (3.4-5.0) 04/11/24 12:39 Globulin 2.7 gm/dl (2.5-4.0) 04/11/24 12:39 Albumin/Globulin Ratio 1.6 (0.9-2) 04/11/24 12:39 Lipase 14 U/L (11-82) 04/11/24 12:39 Impressions Chest X-Ray 04/11/24 12:29 XR chest 1V portable CLINICAL HISTORY: Chest pain, nonspecific COMPARISON STUDY: Chest CT August 15, 2020. Chest radiograph June 14, 2023. FINDINGS: Lung volumes are normal. Lungs are clear. There is no pneumothorax or pleural effusion. Cardiac size is stable. Mediastinal contours are normal. There is no evidence for pulmonary edema. Subtle interstitial thickening is unchanged. IMPRESSION: No acute cardiopulmonary findings. No significant change in appearance of the chest. ACT 112: Negative or not required by law. Electronically signed by: Gama Alexander M.D. 04/11/2024 1:24 PM (5) Leg wound, left Encounter type: initial encounter Qualified Code(s): S81.802A - Unspecified open wound, left lower leg, initial encounter (6) Leg wound, right Encounter type: initial encounter Qualified Code(s): S81.801A - Unspecified open wound, right lower leg, initial encounter
[2024-04-11] MEDS: ACETAMINOPHEN 500 MG TAB PO PRN (17:13)
[2024-04-11] MEDS: CIPRO 0.2%/HYDROCORTISONE 1% OTIC SUSP 10 ML BTL OTR SCH (17:14)
[2024-04-11] MEDS: FERROUS SULFATE 325 MG TAB PO SCH (17:15)
[2024-04-11] MEDS: traMADol HCL 50 MG TABLET PO STA (19:53)
[2024-04-11] MEDS: APIXABAN 5 MG TABLET PO SCH (20:03)
[2024-04-11] MEDS: CARBAMIDE PEROXIDE 6.5% 15 ML BTL OTR SCH (20:03)
[2024-04-11] MEDS: HYDROXYCHLOROQUINE SULFATE 200 MG TAB PO SCH (20:05)
[2024-04-11] MEDS: METOPROLOL SUCC 25MG EXT REL TAB PO SCH (20:05)
[2024-04-11] MEDS: traZODone HCL 100 MG TAB PO SCH (20:06)
[2024-04-11] MEDS ORDERED: OFLOXACIN 0.3% 75 DROPS/5 ML BTL OP SCH (21:00)
[2024-04-11] MEDS: oxyCODONE HCL IR 5 MG TAB (IMMEDIATE RELEASE) PO PRN (23:05)
--- NOTE | 2024-04-11 23:11 | Communication Note ---
Date of Service: April 11, 2024 Patient noted to have increased right facial swelling as per RN. Patient received topical Rx for presumptive acute otitis externa right as per note. Patient with headache complaints. Patient currently denies ear pain. Complaining of tooth ache. Denies neck pain or arm weakness. SBP 160s to 200s since admission Heart rate [address] face: Extensive dental caries with periapical lucencies about tooth #2, 3, 5, 10, 11, 12 and 18 with large inflammatory phlegmon adjacent to the right mandible. Recommend dental consult. Critical spinal canal stenosis at C5-6. Recommend MRI of the cervical spine to evaluate for myelopathy. AP Hypertensive crisis Odontogenic infection Critical cervical spinal stenosis on CT, patient without neck pain or myelopathy complaints. Coreg in place of Lopressor Unasyn OMFS consult in a.m. N.p.o. in anticipation of procedure, hold Eliquis for now MRI cervical spine
[2024-04-11] MEDS: OPTIRAY 320 100ml IV ONE (23:26)
[2024-04-11] MEDS: methylPREDNISolone 40 MG in SYRINGE 0 ML IV ONE (23:38)
--- OUTSIDE RECORDS SUMMARY | 2024-04-12 00:13 | External Medical Summary | Summary of Care ---
Author Name Unknown Organization [facility] Address [address] [place] [address] Phone [phone] Care Team Providers Care Quality Assurance Coordinator Name Role Phone Lorena Jones PA-C Primary Care Provider [phone] Reason for Visit * Reason Onset Date Comments Medication Pre-auth 02/04/2024 Benlysta New Insurance [facility] Encounter Details Date Type Department Care Team (Late st Contact Info) Description 02/04/2024 Telephone [facility]umatology [place] [facility] [address] [facility] [address] Ankur Amezquita PA-C [address] [place] [address] Medication Pre-auth (Benlysta New Insuranc... Allergies Active Allergy Reactions Criticality Noted Date Comments Amlodipine Besylate Itching,Rash 03/01/2010 Itchy, rash Doxycycline Monohydrate Itching,Rash 03/01/2010 Itchy, rash Heparin 04/19/2019 Bacitracin-Polymyxin B Itching,Rash 03/01/2010 Itchy, rash Kdc:Pork Allergy Itching,Rash 03/01/2010 Itchy, rash Tetracycline 04/19/2019 Tetracycline Base Itching,Rash 03/01/2010 Itchy, rash Vancomycin 04/19/2019 documented as of this encounter (statuses as of 02/10/2024) Medications Medication Sig Dispensed Refills Start Date End Date Status TUMS 500 MG PO CHEWIndications:Blake roesophageal reflux One pill by mouth each morning 1 Bottle 11 11/21/2011 Active MULTIVITAMINS PO TABSIndications:Syst emic lupus (HCC) 1 TABLET DAILY 11/21/2011 Acti ve ACETAMINOPHEN 325 MG PO TABS 2 Tab Oral Every 6 hours as needed for pain 60 Tab 0 03/30/2014 Active diphenhydrAMINE (BENADRYL) 25 MG Capsule Take 1 Capsule by mouth every 6 hours as needed. Active fluticasone (FLONASE) 50 MCG/ACT nasal sprayIndications:Acu te sinus infection INSTILL 2 SPRAYS IN EACH NOSTRIL DAILY 48 g 1 08/04/2019 Active Ventolin HFA 108 (90 Base) MCG/ACT Inhalation Aerosol SolutionIndications: COVID-19,Cough,Acute URI Inhale by mouth 2 Puffs every 4 hours as needed for Wheezing or Dyspnea. 1 g 06/13/2021 Active Saline Nasal [place] 0.65 % Nasal Solution (Deep Sea Nasal [place])Indications:Ot algia,Dysfunction of eustachian tube,Chronic rhinitis INSTILL 2 SPRAYS INTO EACH NOSTRIL NEEDED FOR NASAL DRYNESS OR CONGESTION 44 mL 1 09/03/2021 Active Losartan Potassium 100 MG Oral Tablet (Cozaar)Indications: HTN, goal below 140/90 Take by mouth 1 Tablet in the morning. 90 Tablet 1 02/10/2022 Active Sertraline HCl 100 MG Oral Tablet (Zoloft)Indications: Moderately severe major depression (HCC) Take 1 Tablet by mouth in the morning. 90 Tablet 3 05/07/2022 Active Furosemide 40 MG Oral Tablet (Lasix)Indications:A cute on chronic combined systolic (congestive) and diastolic (congestive) heart failure (HCC) TAKE ONE TABLET BY MOUTH ONCE A DAY IN THE MORNING 90 Tablet 10/08/2022 Active traZODone HCl 50 MG Oral Tablet (Desyrel)Indications :Sleep disturbance TAKE 2 TABLETS BY MOUTH ONCE DAILY AT BEDTIME 180 Tablet 10/08/2022 Active Omeprazole 20 MG Oral Capsule Delayed Release (PriLOSEC)Indication s:Gastroesophageal reflux disease, unspecified whether esophagitis present TAKE ONE CAPSULE BY MOUTH IN THE MORNING 1 hour before the first meal of the day 90 Capsule 2 10/08/2022 Active predniSONE 5 MG Oral Tablet (Deltasone) TAKE ONE TABLET BY MOUTH ONCE A DAY 30 Tablet 5 10/20/2022 Active Folic Acid 1 MG Oral TabletIndications:Sy stemic lupus erythematosus, unspecified SLE type, unspecified organ involvement status (HCC),Systemic lupus erythematosus (HCC) TAKE ONE TABLET BY MOUTH ONCE A DAY IN THE MORNING 90 Tablet 3 10/20/2022 Active Hydroxychloroquine Sulfate 200 MG Oral Tablet (Plaquenil)Indicatio ns:Systemic lupus erythematosus, unspecified SLE type, unspecified organ involvement status (HCC) Take 2 Tablets by mouth at bedtime. 180 Tablet 1 11/12/2022 Active Apixaban 5 MG Oral Tablet (Eliquis)Indications :History of pulmonary embolism,History of DVT (deep vein thrombosis) TAKE ONE TABLET BY MOUTH TWICE A DAY 180 Tablet 11/10/2022 Active Metoprolol Succinate ER 25 MG Oral Tablet Extended Release 24 Hour (toPROL XL)Indications:HTN, goal below 140/90,SVT (supraventricular tachycardia) (HCC),Chronic systolic congestive heart failure (HCC),Cardiomyopathy , unspecified type (HCC) Take 1 Tablet by mouth in the morning and 1 Tablet before bedtime. 180 Tablet 3 01/01/2023 Active Belimumab 400 MG Intravenous Solution Reconstituted (Benlysta) Administer 10mg/kg every 4 weeks. Weight = 125 kg 12/14/2023 Active documented as of this encounter (statuses as of 02/10/2024) Active Problems Problem Noted Date Diagnosed Date Other forms of systemic lupus erythematosus 08/2023 Other organ or system involv ement in systemic lupus erythematosus 06/18/2022 Acute on chronic combined sy stolic (congestive) and diastolic (congestive) heart failure 06/18/2022 SVT (supraventricular tachycardia) 06/18/2022 Moderately severe major depression 12/21/2018 History of ITP 08/29/2016 Bilateral lower leg cellulitis 01/16/2016 History of DVT (deep vein thrombosis) 01/16/2016 Sleep disturbance 01/16/2016 Essential hypertension with goal blood pressure less than 140/90 09/07/2015 Venous stasis ulcers of both lower extremities 1 Chronic anticoagulation 02/26/2015 Antiphospholipid antibody syndrome 09/21/2014 Presence of IVC filter 01/27/2014 Thrombocytopenia 01/27/2014 Stasis dermatitis of both legs 11/25/2013 Chronic venous insufficiency 09/30/2013 Umbilical hernia 09/30/2013 History of pulmonary embolism 06/04/2012 Rosacea 11/25/2011 Lymphedema 11/21/2011 SLE (systemic lupus erythematosus) Dyslipidemia, goal LDL below 130 documented as of this encounter (statuses as of 02/10/2024) Resolved Problems Problem Noted Date Diagnosed Date Resolved Date Lupus erythematosus 04/20/2017 04/20/20 17 Viral URI with cough 04/20/2017 017 Lupus erythematosus 04/20/2017 06/30/19 19 Body mass index (BMI) of 40. 0 to 44.9 in adult 02/09/2017 04/20/2017 Overview: Per Obesity protocol #1 Morbid obesity due to excess calories 09/07/2015 04/20/2017 Overview: bmi= 40.67 09/07/15 Gouty arthropathy 08/30/2015 09/07/2015 Encounter for screening mamm ogram for breast cancer 07/18/2015 04/20/2017 Bilateral lower leg cellulitis 02/26/2015 02/26/2015 Left lower lobe pneumonia 10/06/2014 Wound infection 10/06/2014 02/26/2015 Ulcer of leg, chronic, right 10/06/2014 02/26/2015 Purpura 10/06/2014 02/26/2015 Systemic lupus erythematosus , unspecified SLE type, unspecified organ involvement status 10/06/2014 04/20/2017 Overview: ICD-10 update of inactive term Anemia 10/06/2014 10/09/2015 Cough 09/29/2014 02/26/2015 Skin necrosis 09/21/2014 02/26/2015 Severe obesity with body mas s index (BMI) of 35.0 to 39.9 with serious comorbidity 09/01/2014 Overview: bmi= 39.80 09/01/14 ICD-10 update of inactive diagnosis Cellulitis of leg 09/01/2014 02/26/2015 Epistaxis 04/14/2014 09/01/2014 History of DVT (deep vein thrombosis) 04/14/2014 09/01/2014 Antiphospholipid syndrome 03/29/2014 AZUCENA (acute kidney injury) 02/05/2014 Metabolic acidosis 02/05/2014 6 Pelvic mass 01/27/2014 01/27/2014 Idiopathic thrombocytopenic purpura 01/23/2014 04/22/2017 Overview: ICD-10 update of inactive term 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 01/10/2014 04/20/2017 Idiopathic thrombocytopenic purpura 01/08/2014 09/01/2014 Overview: ICD-10 update of inactive term SVT (supraventricular tachycardia) 01/05/2014 01/08/2014 Pancytopenia 01/03/2014 10/09/2015 SIRS (systemic inflammatory response syndrome) 01/03/2014 01/08/2014 Ovarian mass 01/03/2014 04/22/2017 Healthcare-associated pneumonia 12/29/2013 02/26/2015 Recurrent cellulitis of lower leg 12/29/2013 02/26/2015 Chronic anticoagulation 12/29/201312/10 Sepsis 11/25/2013 02/26/2015 Neutropenia 11/25/2013 09/01/2014 Fever 11/25/2013 02/26/2015 Obesity, morbid (more than 1 00 lbs over ideal weight or BMI > 40) 09/30/2013 08/29/2016 Overview: BMI= 44.90 09/30/13 Neutropenia 09/30/2013 10/09/2015 Other screening mammogram 09/30/2013 Chronic venous hypertension w ulceration 09/30/2013 01/08/2014 Obesity, morbid (more than 1 00 lbs over ideal weight or BMI > 40) 03/21/2013 08/29/2016 Overview: bmi= 49.68 03/21/13 Metrorrhagia 06/04/2012 02/26/2015 History of venous thrombosis 06/04/2012 01/08/2014 Chronic anticoagulation 06/04/201212/11 Cellulitis of leg 03/02/2012 10/09/2015 Obesity, morbid (more than 1 00 lbs over ideal weight or BMI > 40) 11/21/2011 08/29/2016 Overview: bmi= 48.42 11/21/11 senior living current use of ant icoagulant therapy 11/21/2011 08/29/2016 Overview: ICD-10 update of inactive term Cellulitis, leg 11/21/2011 10/09/2015 Dermatitis 11/21/2011 02/26/2015 Systemic lupus erythematosus 07/15/2005 11/21/2011 Ulcer of lower limb 11/27/2004 02/27/20 15 senior living current use of ant icoagulant therapy 09/19/2004 11/21/2011 Overview: 2nd PE/DVT ICD-10 update of inactive term DEEP PHLEBITIS, LEG NOS 09/19/200402/08 HTN, goal to be determined 09/19/2004 0 11/21/2011 Traumatic ulcer, rt leg 07/23/200402/08 HTN, goal below 140/90 10/08 Kidney disease, chronic, sta ge III (GFR 30-59 ml/min) 10/18/2015 Diverticulosis of colon (wit hout mention of hemorrhage) 11/03/2017 Overview: colonoscopy documented as of this encounter (statuses as of 02/10/2024) Immunizations Name Administration Dates Next Due Pneumococcal Conjugate Vacc, 13 Valent (Prevnar) 08/06/2021 Pneumococcal Polysaccharide PPV23 (Pneumovax) 03/06/2020 Seasonal Influenza Vac., MDV , IM, 0.5 mL (Fluzone) 02/15/2016,02/19/2015,02/03/2014,03/21,03/02/2012,03/24/2011,03/01/2010 Seasonal Influenza, PF, 6 M & above, IM , (FluLaval or Fluzone) 02/04/2023,01/25/2020,04/20/2017 TDAP (age 10 and older)(Boostrix) 09/30/2013 documented as of this encounter Social History Tobacco Use Types Packs/Day Years Used Date Smoking Tobacco: Never Smokeless Tobacco: Never Alcohol Use Standard Drinks/Week Comments No 0 (1 standard drink = 0.6 oz pur e alcohol) PHQ-2 Answer Date Recorded PHQ Adult Total Score 0 06/18/2022 Hunger Vital Sign Answer Date Recorded Within the past 12 months, y ou worried that your food would run out before you got the money to buy more. Never true 06/18/19 23 Within the past 12 months, t he food you bought just didn't last and you didn't have money to get more. Never true 06/18/2022 Utilities Answer Date Recorded Do you have trouble paying y our heating, water, or electric bill? (Adult - for ages 18 years and over) Not on file 10/27/2023 Is your family able to pay t he heat, water, or electric bill? (Household - for ages 0-17 years) Not on file 10/27/2023 Does your family have access to good internet? (Household - for ages 0-17 years) Not on file 10/27/2023 Social Connections Answer Date Recorded How often do you feel lonely or isolated from those around you? (Adult - for ages 18 years and over) Not on file 10/27/2023 Sex and Gender Information Value Date Recorded Sex Assigned at Female 12/21/2018 12:45 PM EDT Gender Identity Female 12/21/2018 12:45 PM EDT Sexual Orientation Straight 12/21/2018 12 :45 PM EDT Job Start Date Occupation Industry Not on file Not on file Not on file documented as of this encounter Functional Status Functional Status Response Date of Assess ment Are you deaf or do you have serious difficulty h earing? No 03/29/2014 Are you blind or do you have serious difficulty seeing, even when wearing glasses? Yes 03/29/2014 Do you have serious difficul ty walking or climbing stairs? (5 years old or older) No 03/29/2014 Do you have difficulty dress ing or bathing? (5 years old or older) No 03/29/2014 Because of a physical, menta l, or emotional condition, do you have difficulty doing errands alone such as visiting a doctor s office or shopping? (15 years old or older) No 03/29/20 14 Cognitive Status Response Date of Assessm ent Because of a physical, menta l, or emotional condition, do you have serious difficulty concentrating, remembering, or making decisions? (5 years old or older) No 03/29/2014 documented as of this encounter Miscellaneous Notes * Telephone Encounter - Janis Conte LPN - 02/10/2024 10:50 AM EDT Letter printer and information for the Rx sent to Ankur for his signature. * Addendum Note - Yusra Anderson [facility] - 02/08/2024 8:59 AM EDTAddended by: YUSRA ANDERSON on: 02/08/2024 08:59 AM Modules accepted: Orders * Telephone Encounter - Yusra Anderson [facility] - 02/08/2024 8:57 AM EDT Rheum Nurses: Please fax letter and RX (once Ankur signs it) to [facility] along with [facility] Address: [address] [place] [address] * Telephone Encounter - Yusra Anderson [facility] - 02/04/2024 1:05 PM EDT [facility]: Can we submit Benlysta to be administered at [facility]? See info below [facility] Address: [address] [place] [address] Tax ID: [id number] [facility]: Can disregard referral if not able to infuse * Telephone Encounter - Renetta Rushing OSA - 02/04/2024 1:01 PM EDT [facility] - Benefits Investigation Response A benefits investigation has been completed for Benlysta. Patient: Rosemary Nguyen Deductible/cost information: Patients insurance does not cover therapy in the home. Patient would be considered self-pay. Please alert [facility] how to proceed with referral. Please note: This is an estimate that was completed when [facility] submitted a test claim to the patient's insurance. It is not reflective of the final cost and is subject to change based on the authorization received. * Telephone Encounter - Yusra Anderson RPh - 02/04/2024 10:49 AM EDT [facility] - Benefits Investigation Medication Information: Medication: Belimumab IV Maintenance: 10 mg/kg every 4 weeks Diagnosis: Systemic lupus erythematosus [M32.9] Next Scheduled Medication Date: restarting Benlysta Comment: As per patient, has new [employer] Insurance Please perform a benefits investigation to determine if [facility] can service patient. If not approved, will try to approve through [facility] Address: [address] [place] [address] Response to be sent back to: [facility] PHARMACIST REFILL POOL/CLASS [[id number]] * Telephone Encounter - Lorene Oquendo OSA - 02/04/2024 10:43 AM EDT [employer] - Patient Related Communication Reason for Call: Pt called in stated she was called by [facility] yesterday regarding her infusion and was told that her appt was cx due to not receiving a PA. Pt now has [employer] insurance as of 01/10/24. Pt would like to be scheduled at [facility] regardless. Please see previous messages dates 11/15-01/26 letter dated 12/13. I did explain to pt that office and pharmacy has multiple failed attempts at reaching pt via phone or message. Pt states she will have her phone near if they need to return the call today. Please review and advise. ALINA Richards documented in this encounter Plan of Treatment Upcoming Encounters Date Type Department Care Team (Late st Contact Info) Description 02/16/2024 11:45 AM EDT Imaging Radiology [address] [place] [address] 03/04/2024 12:20 PM EDT [facility] [place] [address] [facility] [phone] Lorena Jones PA-C [address] [facility] [place] [address] 04/14/2024 10:30 AM EST Office Visit Rheumatology [facility] [address] [place] [address] Ankur Amezquita PA-C [address] [place] [address] Health Maintenance Due Date Last Done Comments COVID-19 Vaccine (#1) 1972 Hepatitis B Vaccine (1 of 3 - 19+ 3-dose series) 1986 Zoster Vaccines (1 of 2) 1986 Cologuard 2012 Fecal Occult Blood Test 2012 Sigmoidoscopy 2012 Depression Monitoring 06/18/2023 06/18/2022 DTap/Tdap Vaccines (2 - Td or Tdap) 10/01/2023 09/30/2013 Influenza Vaccine (FLU shot) (#1) 2024 02/04/2023, 01/25/2020, 04/20/2017, Additional history exists Colonoscopy 02/01/2024 01/31/2014, 01/31/2014 Colorectal Cancer Screening 02/01/2024 Mammogram 02/14/2024 02/13/2023, 05/18/2017 GFR 10/08/2024 10/09/2023, 06/0 10/2022, 07/24/2021, Additional history exists Albumin/Creatinine Ratio 10/30/2025 10/30/2022, 04/10 Diabetes Screening 10/08/2026 10/09/2023, 0 10/14/2022, 07/24/2021, Additional history exists Lipid Panel 10/15/2027 10/14/2022, 04/10, 09/07/2015, Additional history exists Pneumococcal Vaccine: Pediatrics (0 to 5 Years) and At-Risk Patients (6 to 64 Years) (4 of 4 - PPSV23 or PCV20) 2032 08/06/2021, 03/06/2020, 05/11/2000 HPV (Gardasil) Vaccine Aged Out No lo nger eligible based on patient's age to complete this topic MENINGOCOCCAL (MENACTRA/MENVEO) Aged Out No longer eligible based on patient's age to complete this topic documented as of this encounter Medical Devices Not on filedocumented as of this encounter Advance Directives * Full Code (Latest Code Status on File) Date Activated Date Inactivated Comments 03/29/2014 3:54 AM 03/30/2014 7:23 PM This order reflects the patients wishes and were consensually agreed upon. Question Answer Comments Discussion of Advance Directives occurred with: Patient Does the patient have a Living Will? No Does the patient have Health Care Power of Attor akilah? No * Limited Code Date Activated Date Inactivated Comments 02/05/2014 4:49 PM 02/19/2014 7:54 PM This order reflects the patients wishes and were consensually agreed upon. Question Answer Comments Discussion of Advance Directives occurred with: Patient/Family Does the patient have a Living Will? No Does the patient have Health Care Power of Attor akilah? No Bag Valve Device? Yes Intubation? Yes Cardiac Compressions? No Defibrillation? No Synchronized Cardioversion? Yes External Pacemaker? Yes Cardiac Drugs? Yes * No Code Date Activated Date Inactivated Comments 01/26/2014 10:55 PM 02/05/2014 4:49 PM This order reflects the patients wishes and were consensually agreed upon. Question Answer Comments Discussion of Advance Directives occurred with: Patient * Full Code Date Activated Date Inactivated Comments 01/26/2014 5:43 PM 01/26/2014 10:55 PM This order reflects the patients wishes and were consensually agreed upon. * Full Code Date Activated Date Inactivated Comments 01/26/2014 5:19 PM 01/26/2014 5:43 PM This order r eflects the patients wishes and were consensually agreed upon. Care Teams Quality Assurance Coordinator Relationship Specialty Start Date End Date Lorena Jones PA-C [address] [place] [address] PCP - General Physician Aoc Operations Intelligence Chief 06/18/22 documented as of this encounter
--- OUTSIDE RECORDS SUMMARY | 2024-04-12 00:13 | External Medical Summary | Summary of Care ---
Author Name Unknown Organization [facility] Address [address] [place] [address] Phone [phone] Care Team Providers Care Setter [employer] Name Role Phone Lorena Jones PA-C Primary Care Provider [phone] Reason for Visit * Reason Onset Date Comments Health Maintenance 02/25/2024 Encounter Details Date Type Department Care Team (Late st Contact Info) Description 02/25/2024 Telephone [facility] [address] [place] [address] Lorena Jones PA-C [address] [place] [address] Health Maintenance Allergies Active Allergy Reactions Criticality Noted Date Comments Amlodipine Besylate Itching,Rash 03/01/2010 Itchy, rash Doxycycline Monohydrate Itching,Rash 03/01/2010 Itchy, rash Heparin 04/19/2019 Bacitracin-Polymyxin B Itching,Rash 03/01/2010 Itchy, rash Kdc:Pork Allergy Itching,Rash 03/01/2010 Itchy, rash Tetracycline 04/19/2019 Tetracycline Base Itching,Rash 03/01/2010 Itchy, rash Vancomycin 04/19/2019 documented as of this encounter (statuses as of 02/25/2024) Medications Medication Sig Dispensed Refills Start Date [...] Dyspnea. 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 therapy 11/21/2011 08/29/2016 Overview: ICD-10 update of inactive term Cellulitis, leg 11/21/2011 10/09/2015 Dermatitis 11/21/2011 02/26/2015 Systemic lupus erythematosus 07/15/2005 11/21/2011 Ulcer of lower limb 11/27/2004 02/27/20 15 assisted current use of ant icoagulant therapy 09/19/2004 [...] as of this encounter (statuses as of 02/25/2024) Immunizations Name Administration Dates Next Due Pneumococcal [...] encounter Miscellaneous Notes * Telephone Encounter - Aundrea Simon LPN - 02/25/2024 3:38 PM EDT Care Gaps Comprehensive Care Outreach Last Office/Telemedicine Visit: 02/04/2023 (in office), 05/25/2023 (telemedicine) Next Office Visit: 03/04/2024 Hemoglobin AIC Results: Lab Results Component Value Date/Time HEMOGLOBIN A1C - [facility] 5.4 04/20/2017 01:26 PM HEMOGLOBIN A1C - [facility] 10.1 (H) 01/27/2014 06:55 AM BP Readings from Last 1 Encounters: 10/06/23 128/80 Reviewed Health Maintenance below: Health Maintenance Topic Date Due COVID-19 Vaccine (1) Never done Hepatitis B Vaccine (1 of 3 - 19+ 3-dose series) Never done Zoster Vaccines (1 of 2) Never done Depression Monitoring 06/18/2023 DTap/Tdap Vaccines (2 - Td or Tdap) 10/01/2023 Influenza Vaccine (FLU shot) (1) 01/10/2024 Colorectal Cancer Screening 02/01/2024 Mammogram 02/14/2024 Mamm no show colon Care Gap Outreach Action Taken: Left message documented in this encounter Plan of Treatment Upcoming Encounters Date Type Department Care Team (Late st Contact Info) Description 03/04/2024 11:00 AM EDT Office Visit [place] [address] [place] [address] Lorena Jones PA-C [address] [place] [address] 04/14/2024 10:30 AM EST Office Visit Rheumatology [facility] [address] [place] [address] Ankur Amezquita PA-C [address] [place] [address] Health Maintenance Due Date Last Done Comments [...] Mammogram 02/14/2024 02/13/2023, 05/18/2017 GFR 10/08/2024 10/09/2023, 06/10/2022, 07/24/2021, Additional history exists Albumin/Creatinine Ratio 10/30/2025 [...] and were consensually agreed upon. Care Teams Setter [employer] Relationship Specialty Start Date End Date Lorena Jones PA-C [address] [facility] [place] [address] PCP - General Physician Driller Portable 06/18/22 documented as of this encounter
--- OUTSIDE RECORDS SUMMARY | 2024-04-12 00:13 | External Medical Summary | Summary of Care ---
Author Name Unknown Organization [facility] Address [address] [place] [address] Phone [phone] Care Team Providers Care Eeg Tech Name Role Phone Lorena Jones PA-C Primary Care Provider [phone] Reason for Visit * Reason Onset Date Comments Medication Pre-auth 02/04/2024 Benlysta New Insurance GH Encounter Details Date Type Department Care Team (Late st Contact Info) Description 02/04/2024 Telephone Rheumatology [place] [facility] [facility] [address] Ankur Amezquita PA-C [address] [place] [address] Medication Pre-auth (Benlysta New Insuranc... [...] Dyspnea. 1 g 06/13/2021 Active Saline Nasal [place] 0.65 % Nasal Solution (Deep Sea Nasal [place])Indications:Ot algia,Dysfunction of eustachian tube,Chronic rhinitis INSTILL 2 [...] 40) 11/21/2011 08/29/2016 Overview: bmi= 48.42 11/21/11 FPC current use of ant icoagulant therapy 11/21/2011 08/29/2016 Overview: ICD-10 update of inactive term Cellulitis, leg 11/21/2011 10/09/2015 Dermatitis 11/21/2011 02/26/2015 Systemic lupus erythematosus 07/15/2005 11/21/2011 Ulcer of lower limb 11/27/2004 02/27/20 15 FPC current use of ant icoagulant therapy 09/19/2004 [...] encounter Miscellaneous Notes * Telephone Encounter - Roaxne Conte LPN - 02/10/2024 11:36 AM EDT Letter, auth info and order faxed to [facility] * Telephone Encounter - Janis Conte LPN - 02/10/2024 10:50 AM EDT Letter printer and information for the Rx sent to Ankur for his signature. * Addendum Note - Yusra Anderson RPh - 02/08/2024 8:59 AM EDTAddended by: YUSRA ANDERSON on: 02/08/2024 08:59 AM Modules accepted: Orders * Telephone Encounter - Yusra Anderson RP - 02/08/2024 8:57 AM EDT Rheum Nurses: Please fax letter and RX (once Ankur signs it) to [facility] [place] Address: [address] [place] [address], [facility] * Telephone Encounter - Yusra Anderson RPh - 02/04/2024 1:05 PM EDT [facility]: Can we submit Benlysta to be administered at [facility]? See info below [facility] [place] Address: [address] [place] [address], [facility] Tax ID: [id number] GHIS: Can disregard referral if not able to infuse * Telephone Encounter - Renetta Rushing OSA - 02/04/2024 1:01 PM EDT [facility] - Benefits Investigation Response A benefits investigation has been completed for Benlysta. Patient: Rosemary Nguyen Deductible/cost information: Patients insurance does not cover therapy in the home. Patient would be considered self-pay. Please alert GHIS how to proceed with referral. Please note: This is an estimate that was completed when [facility] submitted a test claim to the patient's insurance. It is not reflective of the final cost and is subject to change based on the authorization received. * Telephone Encounter - Yusra Anderson RPh - 02/04/2024 10:49 AM EDT [facility] REQUEST FORM - Benefits Investigation Medication Information: Medication: Belimumab IV Maintenance: 10 mg/kg every 4 weeks Diagnosis: Systemic lupus erythematosus [M32.9] Next Scheduled Medication Date: restarting Benlysta Comment: As per patient, has new GHP Insurance Please perform a benefits investigation to determine if [facility]IS can service patient. If not approved, will try to approve through [facility] and Margarita Tate [facility] Address: [address] [place] [address], [facility] Response to be sent back to: [facility] PHARMACIST REFILL POOL/CLASS [[id number]] * Telephone Encounter - Lorene Oquendo OSA - 02/04/2024 10:43 AM EDT L[employer] T[employer] - Patient Related Communication Reason for Call: Pt called in stated she was called by [place] yesterday regarding her infusion and was told that her appt was cx due to not receiving a PA. Pt now has GHP insurance as of 01/10/24. Pt would like to be scheduled at [place] regardless. Please see previous messages dates 11/15-01/26 [...] Description 02/16/2024 11:45 AM EDT Imaging Radiology [address] [facility] [place] [address] 03/04/2024 12:20 PM EDT Office Visit [facility] [address] [place] [phone] Lorena Jones PA-C [address] [place] [address] 04/14/2024 10:30 AM EST Office Visit Rheumatology [facility] [address] [place] [address] Ankur Amezquita PA-C [address] [place] [address] Health Maintenance Due Date Last Done Comments [...] and were consensually agreed upon. Care Teams Eeg Tech Relationship Specialty Start Date End Date Lorena Jones PA-C [address] [facility] [place] [address] PCP - General Physician Carpenter Apprentice 06/18/22 documented as of this encounter
--- OUTSIDE RECORDS SUMMARY | 2024-04-12 00:13 | External Medical Summary | Summary of Care ---
Author Name Unknown Organization [facility] Address [address] [place] [address] Phone [phone] Care Team Providers Care Optical Designer Name Role Phone Lorena Jones PA-C Primary Care Provider [phone] Reason for Visit * Reason Onset Date Comments Medication Pre-auth 02/04/2024 Benlysta New Insurance GH Encounter Details Date Type Department Care Team (Late st Contact Info) Description 02/04/2024 Telephone Rheumatology [place] [address] [facility] [address] Ankur Amezquita PA-C [address] [place] [address] Medication Pre-auth (Benlysta New Insuranc... [...] Dyspnea. 1 g 06/13/2021 Active Saline Nasal [place] 0.65 % Nasal Solution (Deep Sea Nasal [place])Indications:Ot algia,Dysfunction of eustachian tube,Chronic rhinitis INSTILL 2 [...] 40) 11/21/2011 08/29/2016 Overview: bmi= 48.42 11/21/11 [facility] current use of ant icoagulant therapy 11/21/2011 08/29/2016 Overview: ICD-10 update of inactive term Cellulitis, leg 11/21/2011 10/09/2015 Dermatitis 11/21/2011 02/26/2015 Systemic lupus erythematosus 07/15/2005 11/21/2011 Ulcer of lower limb 11/27/2004 02/27/20 15 [facility]DC current use of ant icoagulant therapy 09/19/2004 [...] as of this encounter Miscellaneous Notes * Addendum Note - Lyndon Andesron, [facility] - 02/08/2024 8:59 AM EDTAddended by: LYNDON ANDERSON on: 02/08/2024 08:59 AM Modules accepted: Orders * Telephone Encounter - Lyndon Anderson [facility] - 02/08/2024 8:57 AM EDT Rheum Nurses: Please fax letter and RX (once Ankur signs it) to [facility] along with [facility] Address: [address] [place] [address] * Telephone Encounter - Lyndon Anderson [facility] - 02/04/2024 1:05 PM EDT [facility]: Can we submit Benlysta to be administered at [facility]? See info below [facility] Address: [address] [place] [address] Tax ID: [id number] GHIS: Can disregard referral if not able to infuse * Telephone Encounter - Renetta Rushing OSA - 02/04/2024 1:01 PM EDT [facility] - Benefits Investigation Response A benefits investigation has been completed for Benlysta. Patient: Rosemary Nguyen Deductible/cost information: Patients insurance does not cover therapy in the home. Patient would be considered self-pay. Please alert GHIS how to proceed with referral. Please note: This is an estimate that was completed when [facility] submitted a test claim to the patient's insurance. It is not reflective of the final cost and is subject to change based on the authorization received. * Telephone Encounter - Lyndon Anderson RPh - 02/04/2024 10:49 AM EDT [facility] REQUEST FORM - Benefits Investigation Medication Information: Medication: Belimumab IV Maintenance: 10 mg/kg every 4 weeks Diagnosis: Systemic lupus erythematosus [M32.9] Next Scheduled Medication Date: restarting Benlysta Comment: As per patient, has new GHP Insurance Please perform a benefits investigation to determine if [facility]IS can service patient. If not approved, will try to approve through [facility] and Margarita Lea [facility] Address: [address] [place] [address] Response to be sent back to: [facility] PHARMACIST REFILL POOL/CLASS [[id number]] * Telephone Encounter - Lorene Oquendo OSA - 02/04/2024 10:43 AM EDT [place] - Patient Related Communication Reason for Call: [...] Description 02/16/2024 11:45 AM EDT Imaging Radiology [address] [place] [address] 03/04/2024 12:20 PM EDT Office Visit [facility] [place] [address] [facility] [phone] Lorena Jones PA-C [address] [facility] [place] [address] 04/14/2024 10:30 AM EST Office Visit Rheumatology [facility] [address] [employer] [place] [address] Ankur Amezquita PA-C [address] [employer] [place] [address] Health Maintenance Due Date Last Done Comments [...] and were consensually agreed upon. Care Teams Optical Designer Relationship Specialty Start Date End Date Lorena Jones PA-C [address] [facility] [place] [address] PCP - General Physician Healthcare Financial Analyst 06/18/22 documented as of this encounter
--- OUTSIDE RECORDS SUMMARY | 2024-04-12 00:13 | External Medical Summary | Summary of Care ---
Author Name Unknown Organization [facility] Address [address] [place] [address] Phone [phone] Care Team Providers Care Solar Installation Crew Supervisor Name Role Phone Lorena Jones PA-C Primary Care Provider [phone] Reason for Visit * Reason Onset Date Comments Medication Pre-auth 02/04/2024 Benlysta New Insurance GH Encounter Details Date Type Department Care Team (Late st Contact Info) Description 02/04/2024 Telephone Rheumatology [place] [address] [facility] [address] Ankur Amezquita PA-C [address] [place] [address] Medication Pre-auth (Benlysta New Insuranc... Allergies Active Allergy Reactions Criticality Noted Date Comments Amlodipine Besylate Itching,Rash 03/01/2010 Itchy, rash Doxycycline Monohydrate Itching,Rash 03/01/2010 Itchy, rash Heparin 04/19/2019 Bacitracin-Polymyxin B Itching,Rash 03/01/2010 Itchy, rash Kdc:Pork Allergy Itching,Rash 03/01/2010 Itchy, rash Tetracycline 04/19/2019 Tetracycline Base Itching,Rash 03/01/2010 Itchy, rash Vancomycin 04/19/2019 documented as of this encounter (statuses as of 02/08/2024) Medications Medication Sig Dispensed Refills Start Date [...] Dyspnea. 1 g 06/13/2021 Active Saline Nasal [place] 0.65 % Nasal Solution (Deep Sea Nasal [place])Indications:Ot algia,Dysfunction of eustachian tube,Chronic rhinitis INSTILL 2 [...] as of this encounter (statuses as of 02/08/2024) Active Problems Problem Noted Date Diagnosed Date [...] as of this encounter (statuses as of 02/08/2024) Resolved Problems Problem Noted Date Diagnosed Date [...] chronic, right 10/06/2014 02/26/2015 Purpura 10/06/2014 02/26/2015 Lupus 10/06/2014 04/20/2017 Anemia 10/06/2014 10/09/2015 Cough 09/29/2014 02/26/2015 Skin necrosis 09/21/2014 02/26/2015 Severe obesity with body mas s index (BMI) of 35.0 to 39.9 with serious comorbidity 09/01/2014 Overview: bmi= 39.80 09/01/14 ICD-10 update of inactive diagnosis Cellulitis of leg 09/01/2014 02/26/2015 Epistaxis 04/14/2014 09/01/2014 History of DVT (deep vein thrombosis) 04/14/2014 09/01/2014 Antiphospholipid syndrome 03/29/2014 AZUCENA (acute kidney injury) 02/05/2014 Metabolic acidosis 02/05/2014 05 6 Pelvic mass 01/27/2014 01/27/2014 Idiopathic thrombocytopenic [...] 40) 11/21/2011 08/29/2016 Overview: bmi= 48.42 11/21/11 long term acute care registered nurse current use of ant icoagulant therapy 11/21/2011 08/29/2016 Overview: ICD-10 update of inactive term Cellulitis, leg 11/21/2011 10/09/2015 Dermatitis 11/21/2011 02/26/2015 Systemic lupus erythematosus 07/15/2005 11/21/2011 Ulcer of lower limb 11/27/2004 02/27/20 15 long-term current use of ant icoagulant therapy 09/19/2004 11/21/2011 Overview: 2nd PE/DVT ICD-10 update of inactive term DEEP PHLEBITIS, LEG NOS 09/19/200402/08 HTN, goal to be determined 09/19/2004 0 11/21/2011 Traumatic ulcer, rt leg 07/23/200402/08 HTN, goal below 140/90 10/08 Kidney disease, chronic, sta ge III (GFR 30-59 ml/min) 10/18/2015 Diverticulosis of colon (wit hobetzaida mention of hemorrhage) 11/03/2017 Overview: colonoscopy documented as of this encounter (statuses as of 02/08/2024) Immunizations Name Administration Dates Next Due Pneumococcal Conjugate Vacc, 13 Valent (Prevnar) 08/06/2021 Pneumococcal Polysaccharide PPV23 (Pneumovax) 03/06/2020 Seasonal Influenza, PF, 6 M & above, IM , (FluLaval or Fluzone) 02/04/2023,01/25/2020,04/20/2017 Seasonal Influenza, Trivalen t, (IIV3), with Preserv, (Fluzone) 02/15/2016,02/19/2015,02/03/2014,03/21,03/02/2012,03/24/2011,03/01/2010 TDAP (age 10 and older)(Boostrix) 09/30/2013 documented [...] encounter Miscellaneous Notes * Addendum Note - Yusra Anderson [facility] - 02/08/2024 8:59 AM EDTAddended by: YUSRA ANDERSON on: 02/08/2024 08:59 AM Modules accepted: Orders * Telephone Encounter - Yusra Anderson RPh - 02/08/2024 8:57 AM EDT Rheum Nurses: Please fax letter and RX (once Ankur signs it) to [facility] along with [facility] Address: [address] [place] [address] * Telephone Encounter - uYsra Anderson RPh - 02/04/2024 1:05 PM EDT [facility]: Can we submit Benlysta to be administered at [facility]? See info below [facility] Address: [address] [place] [address] Tax ID: [id number] GHIS: Can disregard referral if not able to infuse * Telephone Encounter - Renetta Rushing OSA - 02/04/2024 1:01 PM EDT [facility] - Benefits Investigation Response A benefits investigation has been completed for Benlysta. Patient: Rosemary Nguyen Deductible/cost information: Patients insurance does not cover therapy in the home. Patient would be considered self-pay. Please alert GHIS how to proceed with referral. Please note: This is an estimate that was completed when [facility] submitted a test claim to the patient's insurance. It is not reflective of the final cost and is subject to change based on the authorization received. * Telephone Encounter - Yusra Anderson RPh - 02/04/2024 10:49 AM EDT [facility] - Benefits Investigation Medication Information: Medication: Belimumab IV Maintenance: 10 mg/kg every 4 weeks Diagnosis: Systemic lupus erythematosus [M32.9] Next Scheduled Medication Date: restarting Benlysta Comment: As per patient, has new GHP Insurance Please perform a benefits investigation to determine if [facility] can service patient. If not approved, will try to approve [facility] and [facility] [place] Address: [address] [place] [address], [facility] Response to be sent back to: [facility] PHARMACIST REFILL POOL/CLASS [[id number]] * Telephone Encounter - Lorene Oquendo OSA - 02/04/2024 10:43 AM EDT [facility] [employer] - Patient Related Communication Reason for Call: Pt called in stated she was called by [facility] yesterday regarding her infusion and was told that her appt was cx due to not receiving a PA. Pt now has GHP insurance as of 01/10/24. Pt would like to be scheduled at [place] regardless. Please see previous messages dates 11/15-01/26 letter dated 12/13. I did explain to pt that office and pharmacy has multiple failed attempts at reaching pt via phone or message. Pt states she will have her phone near if they need to return the call today. Please review and advise. ALINA Rcihards documented in this encounter Plan of Treatment Upcoming Encounters Date Type Department Care Team (Late st Contact Info) Description 02/16/2024 11:45 AM EDT Imaging Radiology [facility] [address] [place] [address] 03/04/2024 12:20 PM EDT Office Visit [address] [place] [phone] Lorena Jones PA-C [address] [facility] [address] 04/14/2024 10:30 AM EST Office Visit Rheumatology [facility] [address] [place] [address] Ankur Amezquita PA-C [address] [place] [address] Health Maintenance Due Date Last Done Comments [...] and were consensually agreed upon. Care Teams Solar Installation Crew Supervisor Relationship Specialty Start Date End Date Lorena Jones PA-C [address] [facility] [place] [address] PCP - General Physician Program Architect 06/18/22 documented as of this encounter
--- OUTSIDE RECORDS SUMMARY | 2024-04-12 00:14 | External Medical Summary | Summary of Care ---
Author Name Unknown Organization [facility] Address [address] [place] [address] Phone [phone] Care Team Providers Care Reclamation Supervisor Name Role Phone Lorena Jones PA-C Primary Care Provider [phone] Reason for Visit * Reason Onset Date Comments Medication Pre-auth 02/04/2024 Benlysta New Insurance GH Encounter Details Date Type Department Care Team (Late st Contact Info) Description 02/04/2024 Telephone Rheumatology [place] [address] [facility] [address] Ankur Amezquita PA-C [address] [place] [address] Medication Pre-auth (Benlysta New Insuranc... Allergies Active Allergy Reactions Criticality Noted Date Comments Amlodipine Besylate Itching,Rash 03/01/2010 Itchy, rash Doxycycline Monohydrate Itching,Rash 03/01/2010 Itchy, rash Heparin 04/19/2019 Bacitracin-Polymyxin B Itching,Rash 03/01/2010 Itchy, rash Kdc:Pork Allergy Itching,Rash 03/01/2010 Itchy, rash Tetracycline 04/19/2019 Tetracycline Base Itching,Rash 03/01/2010 Itchy, rash Vancomycin 04/19/2019 documented as of this encounter (statuses as of 02/04/2024) Medications Medication Sig Dispensed Refills Start Date [...] Dyspnea. 1 g 06/13/2021 Active Saline Nasal [place] 0.65 % Nasal Solution (Deep Sea Nasal [place])Indications:Ot algia,Dysfunction of eustachian tube,Chronic rhinitis INSTILL 2 [...] as of this encounter (statuses as of 02/04/2024) Active Problems Problem Noted Date Diagnosed Date [...] as of this encounter (statuses as of 02/04/2024) Resolved Problems Problem Noted Date Diagnosed Date [...] 40) 11/21/2011 08/29/2016 Overview: bmi= 48.42 11/21/11 vermin exterminator current use of ant icoagulant therapy 11/21/2011 08/29/2016 Overview: ICD-10 update of inactive term Cellulitis, leg 11/21/2011 10/09/2015 Dermatitis 11/21/2011 02/26/2015 Systemic lupus erythematosus 07/15/2005 11/21/2011 Ulcer of lower limb 11/27/2004 02/27/20 15 detention current use of ant icoagulant therapy 09/19/2004 [...] as of this encounter (statuses as of 02/04/2024) Immunizations Name Administration Dates Next Due Pneumococcal [...] encounter Miscellaneous Notes * Telephone Encounter - Yusra Anderson, [facility] - 02/04/2024 10:49 AM EDT [facility] REQUEST FORM - Benefits Investigation Medication Information: Medication: Belimumab IV Maintenance: 10 mg/kg every 4 weeks Diagnosis: Systemic lupus erythematosus [M32.9] Next Scheduled Medication Date: restarting Benlysta Comment: As per patient, has new GHP Insurance Please perform a benefits investigation to determine if [facility] can service patient. If not approved, will [facility] to approve [facility] and [facility] [place] Address: [address] [place] [address], [place] [address], [facility] Response to be sent back to: [facility] PHARMACIST REFILL POOL/CLASS [[id number]] * Telephone Encounter - Lorene Oquendo OSA - 02/04/2024 10:43 AM EDT Stained Glass Installer - Patient Related Communication Reason for Call: Pt called in stated she was called by [facility] yesterday regarding her infusion and was told that her appt was cx due to not receiving a PA. Pt now has GHP insurance as of 01/10/24. Pt would like to be scheduled at [place] regardless. Please see previous messages dates 11/15-01/26 [...] Description 02/16/2024 11:45 AM EDT Imaging Radiology [facility] [address] [facility] [address] [place] [address] 03/04/2024 12:20 PM EDT Office Visit [facility] [address] [facility] [phone] Lorena Jones PA-C [address] [facility] [place] [address] 04/14/2024 10:30 AM EST Office Visit Rheumatology [facility] [place] [address] [place] [address] Ankur Amezquita PA-C [address] [employer] [place] [address] Health Maintenance Due Date Last Done Comments [...] 5:19 PM 01/26/2014 5:43 PM This order reflects the patients wishes and were consensually agreed upon. Care Teams Reclamation Supervisor Relationship Specialty Start Date End Date Lorena Jones PA-C [address] [facility] [place] [address] PCP - General Physician Resource Coordinator 06/18/22 documented as of this encounter
--- OUTSIDE RECORDS SUMMARY | 2024-04-12 00:14 | External Medical Summary | Summary of Care ---
Author Name Unknown Organization [facility] Address [address] [place] [address] Phone [phone] Care Team Providers Care Manufacture Specialist Name Role Phone Lorena Jones PA-C Primary Care Provider [phone] [phone] Reason for Visit * Reason Onset Date Comments Medication Pre-auth 02/04/2024 Benlysta New Insurance [facility] Encounter Details Date Type Department Care Team (Late st Contact Info) Description 02/04/2024 Telephone Rheumatology [place] [address] [facility] [address] Ankur Amezquita PA-C [address] [place] [address] Medication Pre-auth (Benlysta New Insuranc... Allergies Active Allergy Reactions Criticality Noted Date Comments Amlodipine Besylate Itching,Rash 03/01/2010 Itchy, rash Doxycycline Monohydrate Itching,Rash 03/01/2010 Itchy, rash Heparin 04/19/2019 Bacitracin-Polymyxin B Itching,Rash 03/01/2010 Itchy, rash Kdc:Pork Allergy Itching,Rash 03/01/2010 Itchy, rash Tetracycline 04/19/2019 Tetracycline Base Itching,Rash 03/01/2010 Itchy, rash Vancomycin 04/19/2019 documented as of this encounter (statuses as of 02/05/2024) Medications Medication Sig Dispensed Refills Start Date [...] Dyspnea. 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 - 02/04/2024 1:05 PM EDT [facility]: Can we submit Benlysta to be administered at [facility]? See info below [facility] Address: [address] [place] [address], [facility] Tax ID: [id number] GHIS: Can disregard referral if not able to infuse * Telephone Encounter - Renetta Rushing OSA - 02/04/2024 1:01 PM EDT [facility] - Benefits Investigation Response A benefits investigation has been completed for Benlysta. Patient: Rosemary Nguyen Deductible/cost information: Patients insurance does not cover therapy in the home. Patient would be considered self-pay. Please alert GHIS how to proceed with referral. Please note: This is an estimate that was completed when [email or web address] submitted a test claim to the patient's insurance. It is not reflective of the final cost and is subject to change based on the authorization received. * Telephone Encounter - Yusra Anderson RPh - 02/04/2024 10:49 AM EDT [facility] REQUEST FORM - Benefits Investigation Medication Information: Medication: Belimumab IV Maintenance: 10 mg/kg every 4 weeks Diagnosis: Systemic lupus erythematosus [M32.9] Next Scheduled Medication Date: restarting Benlysta Comment: As per patient, has new GHP Insurance Please perform a benefits investigation to determine if [facility]IS can service patient. If not approved, will try to approve through [facility] [place] Address: [address] [place] [address], [facility] Response to be sent back to: [facility] PHARMACIST REFILL POOL/CLASS [[id number]] * Telephone Encounter - Lorene Oquendo OSA - 02/04/2024 10:43 AM EDT Regional Training Manager - Patient Related Communication Reason for Call: Pt called in stated she was called by [place] yesterday regarding her infusion and was told that her appt was cx due to not receiving a PA. Pt now has [facility] insurance as of 01/10/24. Pt would like to be scheduled at [place] regardless. Please see previous messages dates 11/15-01/26 [...] 02/16/2024 11:45 AM EDT Imaging Radiology [address] 132 [facility] [place] [address] 03/04/2024 12:20 PM EDT Office Visit [place] [address] [place] [address] Lorena Jones PA-C [address] [place] [address] 04/14/2024 10:30 AM EST Office Visit Rheumatology [facility] [address] [place] [address] Ankur Amezquita PA-C [address] [place] [address] Health Maintenance Due Date Last Done Comments [...] and were consensually agreed upon. Care Teams Manufacture Specialist Relationship Specialty Start Date End Date Lorena Jones PA-C [address] [facility] [place] [address] PCP - General Physician Electric Truck Driver 06/18/22 documented as of this encounter
--- OUTSIDE RECORDS SUMMARY | 2024-04-12 00:14 | External Medical Summary | Summary of Care ---
Author Name Unknown Organization [facility] Address [address] [place] [address] Phone [phone] Care Team Providers Care Diecast Machine Operator Name Role Phone Lorena Jones PA-C Primary Care Provider [phone] [phone] Reason for Visit * Reason Onset Date Comments Medication Pre-auth 02/04/2024 Benlysta New Insurance [facility] Encounter Details Date Type Department Care Team (Late st Contact Info) Description 02/04/2024 Telephone Rheumatology [place] [address] [facility] [address] Ankur Amezquita PA-C [address] [place] [address] Medication Pre-auth (Benlysta New Insuranc... [...] Dyspnea. 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 Patient: Rosemary Nguyen Deductible/cost information: Patients insurance does not cover therapy in the home. Patient would be considered self-pay. Please alert GHIS how to proceed with referral. Please note: This is an estimate that was completed when [facility] submitted a test claim to the patient's insurance. It is not reflective of the final cost and is subject to change based on the authorization received. * Telephone Encounter - Yusra Anderson RPh - 02/04/2024 10:49 AM EDT [facility] REQUEST FORM - Benefits Investigation Medication Information: Medication: Belimumab IV Maintenance: 10 mg/kg every 4 weeks Diagnosis: Systemic lupus erythematosus [M32.9] Next Scheduled Medication Date: restarting Benlysta Comment: As per patient, has new GHP Insurance Please perform a benefits investigation to determine if [facility] can service patient. If not approved, will try to approve [facility] Address: [address] [place] [address] Response to be sent back to: [facility] PHARMACIST REFILL POOL/CLASS [[id number]] * Telephone Encounter - Lorene Oquendo OSA - 02/04/2024 10:43 AM EDT Preparatory Technician - Patient Related Communication Reason for Call: Pt called in stated she was called by [place] yesterday regarding her infusion and was told that her appt was cx due to not receiving a PA. Pt now has GHP insurance as of 01/10/24. Pt would like to be scheduled at [place] regardless. Please see previous messages dates 11/15-01/26 [...] Description 02/16/2024 11:45 AM EDT Imaging Radiology [address] 132 [facility] [place] [address] 03/04/2024 12:20 PM EDT Office Visit [facility], [place] [address] [facility] [address] Lorena Jones PA-C [address] [facility] [place] [address] 04/14/2024 10:30 AM EST Office Visit Rheumatology [place] [address] [employer] [place], [place] [address] Ankur Amezquita PA-C [address] [place] [address] Health Maintenance Due Date Last Done Comments [...] and were consensually agreed upon. Care Teams Diecast Machine Operator Relationship Specialty Start Date End Date Lorena Jones PA-C [address] [address] PCP - General Physician Clinical Operations Manager 06/18/22 documented as of this encounter
--- OUTSIDE RECORDS SUMMARY | 2024-04-12 00:14 | External Medical Summary | Summary of Care ---
Author Name Unknown Organization [facility] Address [address] [place] [address] Phone [phone] Care Team Providers Care Site Coordinator Name Role Phone Lorena Jones PA-C Primary Care Provider [phone] [phone] Reason for Visit * Reason Onset Date Comments Medication Pre-auth 02/04/2024 Benlysta New Insurance [facility] Encounter Details Date Type Department Care Team (Late st Contact Info) Description 02/04/2024 Telephone Rheumatology [place] [address] [facility] [address] Ankur Amezquita PA-C [address] [place] [address] Medication Pre-auth (Benlysta New Insuranc... [...] Dyspnea. 1 g 06/13/2021 Active Saline Nasal [place] 0.65 % Nasal Solution (Deep Sea Nasal [place])Indications:Ot algia,Dysfunction of eustachian tube,Chronic rhinitis INSTILL 2 [...] 11/21/2011 08/29/2016 Overview: bmi= 48.42 11/21/11 terminal supervisor current use of ant icoagulant therapy 11/21/2011 08/29/2016 Overview: ICD-10 update of inactive term Cellulitis, leg 11/21/2011 10/09/2015 Dermatitis 11/21/2011 02/26/2015 Systemic lupus erythematosus 07/15/2005 11/21/2011 Ulcer of lower limb 11/27/2004 02/27/20 15 senior care current use of ant icoagulant therapy 09/19/2004 [...] Notes * Telephone Encounter - Yusra Anderson, [facility] - 02/04/2024 1:05 PM EDT [facility]: Can we submit Benlysta to be administered at [facility]? See info below [facility] Address: [address] [place] [address], [facility] Tax ID: [id number] GHIS: Can disregard referral if not able to infuse * Telephone Encounter - Renetta Rushing OSA - 02/04/2024 1:01 PM EDT [facility] - Benefits Investigation Response A benefits investigation has been completed for Benlysta. Patient: Rosemary Nguyen Deductible/cost information: Patients insurance does not cover therapy in the home. Patient would be considered self-pay. Please alert GHIS how to proceed with referral. Please note: This is an estimate that was completed when [employer] [facility] submitted a test claim to the patient's insurance. It is not reflective of the final cost and is subject to change based on the authorization received. * Telephone Encounter - Yusra Anderson RPh - 02/04/2024 10:49 AM EDT [facility] REQUEST FORM - Benefits Investigation Medication Information: Medication: Belimumab IV Maintenance: 10 mg/kg every 4 weeks Diagnosis: Systemic lupus erythematosus [M32.9] Next Scheduled Medication Date: restarting Benlysta Comment: As per patient, has new GHP Insurance Please perform a benefits investigation to determine if GHIS can service patient. If not approved, will try to approve through [facility] [place] Address: [address] [place] [address], [facility] Response to be sent back to: [facility] PHARMACIST REFILL POOL/CLASS [[id number]] * Telephone Encounter - Lorene Oquendo OSA - 02/04/2024 10:43 AM EDT Brake Rider - Patient Related Communication Reason for Call: Pt called in stated she was called by [place] yesterday regarding her infusion and was told that her appt was cx due to not receiving a PA. Pt now has [facility] insurance as of 01/10/24. Pt would like to be scheduled at [place] regardless. Please see previous messages dates 11/15-01/26 [...] Description 02/16/2024 11:45 AM EDT Imaging Radiology [address] 132 [facility] [place] [address] 03/04/2024 12:20 PM EDT Office Visit [place] [address] [place] [address] Lorena Jones PA-C [address] [place] [address] 04/14/2024 10:30 AM EST Office Visit Rheumatology [facility] [address] [place] [address] Ankur Amezquita PA-C [address] [place] [address] Health Maintenance Due Date Last Done Comments [...] and were consensually agreed upon. Care Teams Site Coordinator Relationship Specialty Start Date End Date Lorena Jones PA-C [address] [facility] [place] [address] PCP - General Physician Reporting Manager 06/18/22 documented as of this encounter
--- OUTSIDE RECORDS SUMMARY | 2024-04-12 00:14 | External Medical Summary | Summary of Care ---
Author Name Unknown Organization [facility] Address [address] [place] [address] Phone [phone] Care Team Providers Care Arborer Name Role Phone Lorena Jones PA-C Primary Care Provider +1 -[phone] Reason for Visit * Reason Onset Date Comments Medication Pre-auth 02/04/2024 Benlysta New Insurance [facility] Encounter Details Date Type Department Care Team (Late st Contact Info) Description 02/04/2024 Telephone Rheumatology [place] [address] [facility] [address] Ankur Amezquita PA-C [address] [place] [address] Medication Pre-auth (Benlysta New Insuranc... [...] Dyspnea. 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 See info below [facility] Address: [address] [place] [address], [facility] Tax ID: [id number] GHIS: Can disregard referral if not able to infuse * Telephone Encounter - Renetta Rushing OSA - 02/04/2024 1:01 PM EDT [facility] - Benefits Investigation Response A benefits investigation has been completed for Benlysta. Patient: Rosemary Nguyen Deductible/cost information: Patients insurance does not cover therapy in the home. Patient would be considered self-pay. Please alert GHIS how to proceed with referral. Please note: This is an estimate that was completed when [facility] submitted a test claim to the patient's insurance. It is not reflective of the final cost and is subject to change based on the authorization received. * Telephone Encounter - Yusra Anderson RPh - 02/04/2024 10:49 AM EDT [facility] REQUEST FORM - Benefits Investigation Medication Information: Medication: Belimumab IV Maintenance: 10 mg/kg every 4 weeks Diagnosis: Systemic lupus erythematosus [M32.9] Next Scheduled Medication Date: restarting Benlysta Comment: As per patient, has new GHP Insurance Please perform a benefits investigation to determine if GHIS can service patient. If not approved, will try to approve through [facility] [place] Address: [address] [place] [address], [facility] Response to be sent back to: [facility] PHARMACIST REFILL POOL/CLASS [[id number]] * Telephone Encounter - Lorene Oquendo OSA - 02/04/2024 10:43 AM EDT Vest Maker - Patient Related Communication Reason for Call: Pt called in stated she was called by [place] yesterday regarding her infusion and was told that her appt was cx due to not receiving a PA. Pt now has [facility] insurance as of 01/10/24. Pt would like to be scheduled at [place] regardless. Please see previous messages dates 11/15-01/26 [...] Description 02/16/2024 11:45 AM EDT Imaging Radiology [address] 132 [facility] [place] [address] 03/04/2024 12:20 PM EDT Office Visit [place] [address] [place] [address] Lorena Jones PA-C [address] [place] [address] 04/14/2024 10:30 AM EST Office Visit Rheumatology [facility] [address] [place] [address] Ankur Amezquita PA-C [address] [place] [address] Health Maintenance Due Date Last Done Comments [...] and were consensually agreed upon. Care Teams Arborer Relationship Specialty Start Date End Date Lorena Jones PA-C [address] [facility] [place] [address] PCP - General Physician Ballet Soloist 06/18/22 documented as of this encounter
--- OUTSIDE RECORDS SUMMARY | 2024-04-12 00:15 | External Medical Summary | Summary of Care ---
Author Name Unknown Organization [facility] Address [address] [place] [address] Phone [phone] Care Team Providers Care Pharmacy Customer Care Specialist Name Role Phone Lorena Jones PA-C Primary Care Provider +1 -[phone] Reason for Visit * Reason Onset Date Comments Information 01/27/2024 Encounter Details Date Type Department Care Team (Late st Contact Info) Description 01/27/2024 Telephone Hematology/Oncology Treatment, [place] [address] [place] [address] Ankur Amezquita PA-C [address] [place] [address] Information Allergies Active Allergy Reactions Criticality Noted Date Comments Amlodipine Besylate Itching,Rash 03/01/2010 Itchy, rash Doxycycline Monohydrate Itching,Rash 03/01/2010 Itchy, rash Heparin 04/19/2019 Bacitracin-Polymyxin B Itching,Rash 03/01/2010 Itchy, rash Kdc:Pork Allergy Itching,Rash 03/01/2010 Itchy, rash Tetracycline 04/19/2019 Tetracycline Base Itching,Rash 03/01/2010 Itchy, rash Vancomycin 04/19/2019 documented as of this encounter (statuses as of 01/27/2024) Medications Medication Sig Dispensed Refills Start Date [...] Dyspnea. 1 g 06/13/2021 Active Saline Nasal [place] 0.65 % Nasal Solution (Deep Sea Nasal [place])Indications:Ot algia,Dysfunction of eustachian tube,Chronic rhinitis INSTILL 2 [...] as of this encounter (statuses as of 01/27/2024) Active Problems Problem Noted Date Diagnosed Date [...] as of this encounter (statuses as of 01/27/2024) Resolved Problems Problem Noted Date Diagnosed Date [...] 40) 11/21/2011 08/29/2016 Overview: bmi= 48.42 11/21/11 rodent exterminator current use of ant icoagulant therapy 11/21/2011 08/29/2016 Overview: ICD-10 update of inactive term Cellulitis, leg 11/21/2011 10/09/2015 Dermatitis 11/21/2011 02/26/2015 Systemic lupus erythematosus 07/15/2005 11/21/2011 Ulcer of lower limb 11/27/2004 02/27/20 15 rodent exterminator current use of ant icoagulant therapy 09/19/2004 [...] as of this encounter (statuses as of 01/27/2024) Immunizations Name Administration Dates Next Due Pneumococcal [...] encounter Miscellaneous Notes * Telephone Encounter - Carissa Larson RN - 01/27/2024 9:12 AM EDT Type Date User Summary Attachment Precert 01/21/2024 1:11 PM Amelia Vann, AL[place] Pt now has [employer] Gold eff 01/10/2024 - Note: Pt now has [employer] Gold eff 01/10/2024 Do you know if this patient started her Benlysta at the outside Home Infusion location? [facility] [place] FAX # [phone] Amelia Washington Soo, ALINA 01/21/24 Rheum: it looks like there are several chains in chart regarding home infusion vs [facility]. Can beacon plan with [facility] be cancelled? documented in this encounter Plan of Treatment Upcoming Encounters Date Type Department Care Team (Late st Contact Info) Description 02/03/2024 10:00 AM EDT Office Visit [facility] [address] [place] [facility] [place] [id number] Lorena Jones PA-C [address] [place] [address] 02/16/2024 11:45 AM EDT Imaging Radiology [facility] 1st [facility] [address] [facility] [place] [address] 04/14/2024 10:30 AM EST Office Visit Rheumatology [facility] [address] [place] [address] Ankur Amezquita PA-C [address] [place] [address] Health Maintenance Due Date Last Done Comments [...] and were consensually agreed upon. Care Teams Pharmacy Customer Care Specialist Relationship Specialty Start Date End Date Lorena Jones PA-C [address] [facility] [place] [address] PCP - General Physician Cath Lab Tech 06/18/22 documented as of this encounter
--- OUTSIDE RECORDS SUMMARY | 2024-04-12 00:15 | External Medical Summary | Summary of Care ---
Author Name Unknown Organization [facility] Address [address] [place] [address] Phone [phone] Care Team Providers Care Fine Artist Name Role Phone Lorena Jones PA-C Primary Care Provider [phone] Reason for Visit * Reason Onset Date Comments Medication Pre-auth 02/04/2024 Benlysta New Insurance [facility] Encounter Details Date Type Department Care Team (Late st Contact Info) Description 02/04/2024 Telephone [facility]umatology [place] [facility] [address] [facility] [address] Ankur Amezquita PA-C [address] [place] [address] Medication Pre-auth (Benlysta New Insuranc... [...] Dyspnea. 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 use of ant icoagulant therapy 11/21/2011 08/29/2016 Overview: ICD-10 update of inactive term Cellulitis, leg 11/21/2011 10/09/2015 Dermatitis 11/21/2011 02/26/2015 Systemic lupus erythematosus 07/15/2005 11/21/2011 Ulcer of lower limb 11/27/2004 02/27/20 15 penitentiary current use of ant icoagulant therapy 09/19/2004 [...] Notes * Telephone Encounter - Yusra Anderson, [facility] - 02/04/2024 10:49 AM EDT [facility] INF[facility]ION [facility] REQUEST FORM - Benefits Investigation Medication Information: Medication: Belimumab IV Maintenance: 10 mg/kg every 4 weeks Diagnosis: Systemic lupus erythematosus [M32.9] Next Scheduled Medication Date: restarting Benlysta Comment: As per patient, has new [employer] Insurance Please perform a benefits investigation to determine if [facility] can service patient. If not approved, will try to approve through [facility] Address: [address] [place] [address], [place] [address], [facility] Response to be sent back to: [facility] PHARMACIST REFILL POOL/CLASS [[id number]] * Telephone Encounter - Lorene Oquendo OSA - 02/04/2024 10:43 AM EDT Emergency Department - Patient Related Communication Reason for Call: Pt called in stated she was called by [facility] yesterday regarding her infusion and was told that her appt was cx due to not receiving a PA. Pt now has GHP insurance as of 01/10/24. Pt would like to be scheduled at OR regardless. Please see previous messages dates 11/15-01/26 [...] Description 02/16/2024 11:45 AM EDT Imaging Radiology [facility] [address] [place] [address] 03/04/2024 12:20 PM EDT Office [facility] [address] [facility] [phone] Lorena Jones PA-C [address] [facility] [place] [address] 04/14/2024 10:30 AM EST Office Visit Rheumatology [facility] [address] [place] [address] Ankur Amezquita PA-C [address] [employer] [place] [address] Health Maintenance Due Date Last Done Comments [...] and were consensually agreed upon. Care Teams Fine Artist Relationship Specialty Start Date End Date Lorena Jones PA-C [address] [facility] [place] [address] PCP - General Physician Cured Meat Packing Supervisor 06/18/22 documented as of this encounter
--- OUTSIDE RECORDS SUMMARY | 2024-04-12 00:15 | External Medical Summary | Summary of Care ---
Author Name Unknown Organization [facility] Address [address] [place] [address] Phone [phone] Care Team Providers Care Content Creation Manager Name Role Phone Lorena Jones PA-C Primary Care Provider [phone] Reason for Visit * Reason Onset Date Comments Information 01/27/2024 Encounter Details Date Type Department Care Team (Late st Contact Info) Description 01/27/2024 Telephone Hematology/Oncology Treatment, [place] [address] [place] [address] Ankur Amezquita PA-C [address] [place] [address] Information Allergies Active Allergy Reactions Criticality Noted Date Comments Amlodipine Besylate Itching,Rash 03/01/2010 Itchy, rash Doxycycline Monohydrate Itching,Rash 03/01/2010 Itchy, rash Heparin 04/19/2019 Bacitracin-Polymyxin B Itching,Rash 03/01/2010 Itchy, rash Kdc:Pork Allergy Itching,Rash 03/01/2010 Itchy, rash Tetracycline 04/19/2019 Tetracycline Base Itching,Rash 03/01/2010 Itchy, rash Vancomycin 04/19/2019 documented as of this encounter (statuses as of 01/28/2024) Medications Medication Sig Dispensed Refills Start Date [...] Dyspnea. 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 * Telephone Encounter - Roxane Conte LPN - 01/27/2024 9:29 AM EDT Yes we had faxed orders to [place] but not sure that pt ever followed up as she does not answer her phone or return our messages * Telephone Encounter - Carissa Larson RN - 01/27/2024 9:12 AM EDT Type Date User Summary Attachment Precert 01/21/2024 1:11 PM Amelia Vann OSA Pt now has GHP Gold eff 01/10/2024 - Note: Pt now has GHP Gold eff 01/10/2024 Do you know if this patient started her Benlysta at the outside Home Infusion location? [facility] [address] [place] [address] FAX # [phone] ALINA Hairston 01/21/24 Rheum: it looks like there are several chains in chart regarding home infusion vs [facility]. Can beacon plan with [facility] be cancelled? documented in this encounter Plan of Treatment Upcoming Encounters Date Type Department Care Team (Late st Contact Info) Description 02/03/2024 10:00 AM EDT Office Visit [facility] [address] [place] [phone] Lorena Jones PA-C [address] [place] [address] 02/16/2024 11:45 AM EDT Imaging Radiology [address] 132 [facility] [place] [address] 04/14/2024 10:30 AM EST Office Visit Rheumatology [place] [id number] [facility] [place] [address] Ankur Amezquita PA-C [address] [facility] [address] Health Maintenance Due Date Last Done Comments [...] and were consensually agreed upon. Care Teams Content Creation Manager Relationship Specialty Start Date End Date Lorena Jones PA-C [address] [place] [address] PCP - General Physician Sheep Herder 06/18/22 documented as of this encounter
--- OUTSIDE RECORDS SUMMARY | 2024-04-12 00:15 | External Medical Summary | Summary of Care ---
Author Name Unknown Organization [facility] Address [address] [place] [address] Phone [phone] Care Team Providers Care Hotel Controller Name Role Phone Lorena Jones PA-C Primary Care Provider [phone] Reason for Visit * Reason Onset Date Comments Medication Pre-auth 11/16/2023 Encounter Details Date Type Department Care Team (Late st Contact Info) Description 11/16/2023 Telephone [address] [address] Yusra Anderson, [facility] [address] [place] [address] Medication Pre-auth Allergies Active Allergy Reactions Criticality Noted Date [...] End Date Status TUMS 500 MG PO CHEWIndications:Gas troesophageal reflux One pill by mouth each morning 1 Bottle 11 11/21/2011 Active MULTIVITAMINS PO TABSIndications:Sys temic lupus (HCC) 1 TABLET DAILY 11/21/2011 Act jay ACETAMINOPHEN 325 MG PO TABS 2 Tab Oral Every 6 hours as needed for pain 60 Tab 0 03/30/2014 Active diphenhydrAMINE (BENADRYL) 25 MG Capsule Take 1 Capsule by mouth every 6 hours as needed. Active fluticasone (FLONASE) 50 MCG/ACT nasal sprayIndications:Ac shahida sinus infection INSTILL 2 SPRAYS IN EACH NOSTRIL DAILY 48 g 1 08/04/2019 Active Ventolin HFA 108 (90 Base) MCG/ACT Inhalation Aerosol SolutionIndications :COVID-19,Cough,Acu te URI Inhale by mouth 2 Puffs every 4 hours as needed for Wheezing or Dyspnea. 1 g 06/13/2021 Active Saline Nasal [place] 0.65 % Nasal Solution (Deep Sea Nasal [place])Indications:O talgia,Dysfunction of eustachian tube,Chronic rhinitis INSTILL 2 SPRAYS INTO EACH NOSTRIL NEEDED FOR NASAL DRYNESS OR CONGESTION 44 mL 1 09/03/2021 Active Losartan Potassium 100 MG Oral Tablet (Cozaar)Indications :HTN, goal below 140/90 Take by mouth 1 Tablet in the morning. 90 Tablet 1 02/10/2022 Active Sertraline HCl 100 MG Oral Tablet (Zoloft)Indications :Moderately severe major depression (HCC) Take 1 Tablet by mouth in the morning. 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) TAKE ONE TABLET BY MOUTH ONCE A DAY IN THE MORNING 90 Tablet 10/08/2022 Active traZODone HCl 50 MG Oral Tablet (Desyrel)Indication s:Sleep disturbance TAKE 2 TABLETS BY MOUTH ONCE DAILY AT BEDTIME 180 Tablet 10/08/2022 Active Omeprazole 20 MG Oral Capsule Delayed Release (PriLOSEC)Indicatio ns:Gastroesophageal reflux disease, unspecified whether esophagitis present TAKE ONE CAPSULE BY MOUTH IN THE MORNING 1 hour before the first meal of the day 90 Capsule 2 10/08/2022 Active predniSONE 5 MG Oral Tablet (Deltasone) TAKE ONE TABLET BY MOUTH ONCE A DAY 30 Tablet 5 10/20/2022 Active Folic Acid 1 MG Oral TabletIndications:S ystemic lupus erythematosus, unspecified SLE type, unspecified organ involvement status (HCC),Systemic lupus erythematosus (HCC) TAKE ONE TABLET BY MOUTH ONCE A DAY IN THE MORNING 90 Tablet 3 10/20/2022 Active Hydroxychloroquine Sulfate 200 MG Oral Tablet (Plaquenil)Indicati ons:Systemic lupus erythematosus, unspecified SLE type, unspecified organ involvement status (HCC) Take 2 Tablets by mouth at bedtime. 180 Tablet 1 11/12/2022 Active Apixaban 5 MG Oral Tablet (Eliquis)Indication s:History of pulmonary embolism,History of DVT (deep vein thrombosis) TAKE ONE TABLET BY MOUTH TWICE A DAY 180 Tablet 11/10/2022 Active Metoprolol Succinate ER 25 MG Oral Tablet Extended Release 24 Hour (toPROL XL)Indications:HTN, goal below 140/90,SVT (supraventricular tachycardia) (HCC),Chronic systolic congestive heart failure (HCC),Cardiomyopath y, unspecified type (HCC) Take 1 Tablet by mouth in the morning and 1 Tablet before bedtime. 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 No answer. LMOM. Please clarify what pt concerns is as patient as benlysta orders were sent to [facility] * Telephone Encounter - Cici Carmona RPh - 01/26/2024 3:05 PM EDT Returned call. No answer. LMOM to clarify what insurance patient has RX BIN, PCN, GRP, ID Per other chain plan was for patient to have infusion at [facility] order was faxed to [facility] on 12/14 * Telephone Encounter - Roxane Conte LPN - 01/26/2024 2:22 PM EDT Pt calling in regarding her Benlysta. She said she called [facility] and they told the med was cancelled. Pt is wondering why. Please call: [phone] Please advise. * Telephone Encounter - Yusra Anderson RPh - 12/10/2023 2:29 PM EDT LM x 2 * Telephone Encounter - Yusra Anderson RPh - 12/07/2023 9:34 AM EDT LM re: If insurance has any other home infusion option that would be covered although it appears deductible would need to be met. Benlysta SQ may also be an option to consider as well * Telephone Encounter - Cici Carmona RPh - 12/03/2023 1:26 PM EDT Called number below for Home health- they do not actually administer the drug. [facility] can you confirm if any copay card information was applied to the quote for saphnelo? * Telephone Encounter - Lorene Oquendo OSA - 12/02/2023 2:28 PM EDT [place] - Patient Related Communication Reason for Call: Medication forms (Pharmacy Pool): Pt called in stated she followed up with her insurance and was provided two places that are covered to give her infusion at home. [facility] [address] [place] [address] FAX # [phone] ALINA Richards * Telephone Encounter - Ankur Amezquita PA-C - 11/17/2023 9:53 AM EDT The only thing on the form was the name of two possible services which I do not remember at this time. It was faxed back in already. It looks like the patient can contact [facility] directly to inquire as well. They stated she was eligible, but did not note any associated costs. May still be cheaper toget through [employer]. I know the patient has issues with transportation so home infusions wouldbe easier for her and most likely increase her compliance. * Telephone Encounter - Ankur Amezquita PA-C - 11/16/2023 1:24 PM EDT I may have faxed the paper back. I can check when I am back in the office, but there was two servicers that her [facility] services recommended for the home infusions. * Telephone Encounter - Yusra Anderson [facility] - 11/16/2023 12:43 PM EDT As per TE from 10/12, patient did not respond to [employer] regarding home infusion option and OOP cost. LM for patient today as well. Can close [facility] case for now. Ankur: routing to make aware [facility] option would be $$$ for patient. Sent her and LM for her but has not responded. * Telephone Encounter - Viry Mcqueen LPN - 11/16/2023 11:42 AM EDT [facility] is following up on Rosemary. Do you have any updates as far as her Benlysta infusion to be scheduled? Please advise. Thank you. documented in this encounter Plan of Treatment Upcoming Encounters Date Type Department Care Team (Late st Contact Info) Description 02/03/2024 10:00 AM EDT Office Visit [facility] [address] [place] [address] Lorena Jones PA-C [address] [place] [address] 02/16/2024 11:45 AM EDT Imaging Radiology [address] 132 [facility] [place] [address] 04/14/2024 10:30 AM EST Office Visit Rheumatology [place] [address] [place] [address] Ankur Amezquita PA-C [address] [place], [place] [address] Health Maintenance Due Date Last Done Comments [...] and were consensually agreed upon. Care Teams Hotel Controller Relationship Specialty Start Date End Date Lorena Jones PA-C [address] [facility] [place] [address] PCP - General Physician Cub Reporter 06/18/22 documented as of this encounter
--- OUTSIDE RECORDS SUMMARY | 2024-04-12 00:15 | External Medical Summary | Summary of Care ---
Author Name Unknown Organization [facility] Address [address] [place] [address] Phone [phone] Care Team Providers Care Contour Sander Name Role Phone Lorena Jones PA-C Primary Care Provider [phone] Reason for Visit * Reason Onset Date Comments Medication Pre-auth 11/16/2023 Encounter Details Date Type Department Care Team (Late st Contact Info) Description 11/16/2023 Telephone Home [address] [address] Yusra Anderson, [facility] [address] [place] [address] Medication Pre-auth Allergies Active Allergy Reactions Criticality Noted Date Comments Amlodipine Besylate Itching,Rash 03/01/2010 Itchy, rash Doxycycline Monohydrate Itching,Rash 03/01/2010 Itchy, rash Heparin 04/19/2019 Bacitracin-Polymyxin B Itching,Rash 03/01/2010 Itchy, rash Kdc:Pork Allergy Itching,Rash 03/01/2010 Itchy, rash Tetracycline 04/19/2019 Tetracycline Base Itching,Rash 03/01/2010 Itchy, rash Vancomycin 04/19/2019 documented as of this encounter (statuses as of 01/26/2024) Medications Medication Sig Dispensed Refills Start Date [...] Dyspnea. 1 g 06/13/2021 Active Saline Nasal [place] 0.65 % Nasal Solution (Deep Sea Nasal [place])Indications:O talgia,Dysfunction of eustachian tube,Chronic rhinitis INSTILL 2 [...] as of this encounter (statuses as of 01/26/2024) Active Problems Problem Noted Date Diagnosed Date [...] as of this encounter (statuses as of 01/26/2024) Resolved Problems Problem Noted Date Diagnosed Date [...] 40) 11/21/2011 08/29/2016 Overview: bmi= 48.42 11/21/11 custodial current use of ant icoagulant therapy 11/21/2011 08/29/2016 Overview: ICD-10 update of inactive term Cellulitis, leg 11/21/2011 10/09/2015 Dermatitis 11/21/2011 02/26/2015 Systemic lupus erythematosus 07/15/2005 11/21/2011 Ulcer of lower limb 11/27/2004 02/27/20 15 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 No answer. LMOM to clarify what insurance patient has RX BIN, PCN, GRP, ID Per other chain plan was for patient to have infusion at [facility] order was faxed to [facility] on 12/14 * Telephone Encounter - Roxane Conte LPN - 01/26/2024 2:22 PM EDT Pt calling in regarding her Benlysta. She said she called [employer] and they told the med was cancelled. Pt is wondering why. Please call: [phone] Please advise. * Telephone Encounter - Yusra [...] Oquendo OSA - 12/02/2023 2:28 PM EDT [place] - Patient Related Communication Reason for Call: Medication forms (Pharmacy Pool): Pt called in stated she followed up with her insurance and was provided two places that are covered to give her infusion at home. [facility] [address] [place] [address] FAX # [phone] ALINA Richards * Telephone Encounter - Ankur Amezquita PA-C - 11/17/2023 9:53 AM EDT The only thing on the form was the name of two possible services which I do not remember at this time. It was faxed back in already. It looks like the patient can contact [facility] directly to inquire as well. They stated she was eligible, but did not note any associated costs. May still be cheaper toget through [email or web address]. I know the patient has issues with transportation so home infusions wouldbe easier for her and most likely increase her compliance. * Telephone Encounter - Ankur Amezquita PA-C - 11/16/2023 1:24 PM EDT I may have faxed the paper back. I can check when I am back in the office, but there was two servicers that her [facility] services recommended for the home infusions. * Telephone Encounter - Yusra Anderson RPh - 11/16/2023 12:43 PM EDT As per [...] LPN - 11/16/2023 11:42 AM EDT [facility]--[facility] is following up on Rosemary. Do you have any updates as far as her Benlysta infusion to be scheduled? Please advise. Thank you. documented in this encounter Plan of Treatment Upcoming Encounters Date Type Department Care Team (Late st Contact Info) Description 02/03/2024 10:00 AM EDT Office Visit [facility] [address] [place] [facility] [place] [phone] Lorena Jones PA-C [address] [facility] [address] 02/16/2024 11:45 AM EDT Imaging Radiology [address] 132 [facility] [place] [address] 04/14/2024 10:30 AM EST Office Visit Rheumatology [place] [id number] [employer] [place] [address] Ankur Amezquita PA-C [address] [place] [address] Health Maintenance Due Date Last Done Comments [...] and were consensually agreed upon. Care Teams Contour Sander Relationship Specialty Start Date End Date Lorena Jones PA-C [address] [facility] [place] [address] PCP - General Physician Product Lead 06/18/22 documented as of this encounter
--- OUTSIDE RECORDS SUMMARY | 2024-04-12 00:15 | External Medical Summary | Summary of Care ---
Author Name Unknown Organization [facility] Address [address] [place] [address] Phone [phone] Care Team Providers Care Scrum Coach Name Role Phone Lorena Jones PA-C Primary Care Provider [phone] [phone] Reason for Visit * Reason Onset Date Comments Medication Pre-auth 11/16/2023 Encounter Details Date Type Department Care Team (Late st Contact Info) Description 11/16/2023 Telephone Home [address] [address] Yusra Anderson, [facility] [address] [place] [address] Medication Pre-auth Allergies Active Allergy [...] Dyspnea. 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 No answer. LMOM. Please clarify what pt concerns is as patient as benlysta orders were sent to [facility] * Telephone Encounter - Cici Carmona RPh - 01/26/2024 3:05 PM EDT Returned call. No answer. LMOM to clarify what insurance patient has RX BIN, PCN, GRP, ID Per other chain plan was for patient to have infusion at [facility] order was faxed to [facility] on 12/14 * Telephone Encounter - Roxane Conte LPN - 01/26/2024 2:22 PM EDT Pt calling in regarding her Benlysta. She said she called [employer] and they told the med was cancelled. Pt is wondering why. Please call: [phone] Please advise. * Telephone Encounter - Yusra [...] information was applied to the quote for saphsamo? * Telephone Encounter - Lorene Oquendo OSA - 12/02/2023 2:28 PM EDT [facility] - Patient Related Communication Reason for Call: Medication forms (Pharmacy Pool): Pt called in stated she followed up with her insurance and was provided two places that are covered to give her infusion at home. Pt [facility] [address] [place] [address] FAX # [phone] ALINA Richards * Telephone Encounter - Ankur Amezquita PA-C - 11/17/2023 9:53 AM EDT The only thing on the form was the name of two possible services which I do not remember at this time. It was faxed back in already. It looks like the patient can contact [facility] directly to inquire as well. They stated she was eligible, but did not note any associated costs. May still be cheaper toget through [employer]. I know the patient has issues with transportation so home infusions wouldbe easier for her and most likely increase her compliance. * Telephone Encounter - Ankur Amezquita PA-C - 11/16/2023 1:24 PM EDT I may have faxed the paper back. I can check when I am back in the office, but there was two servicers that her [employer] services recommended for the home infusions. * [...] Description 02/16/2024 11:45 AM EDT Imaging Radiology [address] 132 [facility] [place] [address] 03/04/2024 12:20 PM EDT Office [facility] [address] [facility] [address] Lorena Jones PA-C [address] [facility] [place] [address] 04/14/2024 10:30 AM EST Office Visit Rheumatology [place] [address] [facility] [place] [address] Ankur Amezquita PA-C [facility] [employer] [place] [address] Health Maintenance Due Date Last Done Comments [...] and were consensually agreed upon. Care Teams Scrum Coach Relationship Specialty Start Date End Date Lorena Jones PA-C [address] [place] [address] PCP - General Physician Disease And Insect Control Boss 06/18/22 documented as of this encounter
--- OUTSIDE RECORDS SUMMARY | 2024-04-12 00:15 | External Medical Summary | Summary of Care ---
Author Name Unknown Organization [facility] Address [address] [place] [address] Phone [phone] Care Team Providers Care Precision Farming Coordinator Name Role Phone Lorena Jones PA-C Primary Care Provider [phone] Reason for Visit * Reason Onset Date Comments Forms Request 10/27/2023 [employer] requestin g home infusion Encounter Details Date Type Department Care Team (Late st Contact Info) Description 10/27/2023 Telephone Rheumatology [facility] [address] [place] [address] Ankur Amezquita PA-C [address] [place] [address] Forms Request ([employer] requesting home infu... Allergies Active Allergy Reactions Criticality Noted Date [...] Dyspnea. 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 We requested home infusions last I knew. Was she getting home infusions? She should still be getting benlysta * Telephone Encounter - Carmen Pitts CPhT - 01/26/2024 10:42 AM EDT Pt calling in regarding her Benlysta. She said she called [employer] insurance and they told the med was cancelled. Pt is wondering why. Please call: [phone] Please advise. Thank you, Carmen Pitts CPhT [facility] ([facility]) 01/26/2024, 10:42 AM * Telephone Encounter - Ankur Amezquita PA-C - 11/06/2023 10:46 AM EDT Submitted for home infusions. * Telephone Encounter - Lorene Oquendo OSA - 11/05/2023 10:04 AM EDT [place] - Patient Related Communication Reason for Call: Prior auth/approval of non-DMARD (Ham Trimmer): Pt called in stating that her insurance reached out stating that they would rather her have infusion at home. Pt states that she is fine with either however if she could have it done at home, that would be ideal. Please contact pt at [phone] best after lunch. ALINA Richards * Telephone Encounter - Ankur Amezquita PA-C - 11/02/2023 11:41 AM EDT Left another voicemail. My G sent. Letter sent. * Telephone Encounter - Ankur Amezquita PA-C - 10/27/2023 2:42 PM EDT Left voicemail to see if patient is requesting home infusions. Do not see any notation that patientis requesting home infusion services. Asked her to call back with her wishes for treatment. * Telephone Encounter - Janis Conte LPN - 10/27/2023 1:57 PM EDT Received a fax from [facility] requesting a home infusion for Benlysta. documented in this encounter Plan of Treatment Upcoming Encounters Date Type Department Care Team (Late st Contact Info) Description 02/03/2024 10:00 AM EDT Office Visit [facility] [address] [place] [address] Lorena Jones PA-C [address] [place] [address] 02/16/2024 11:45 AM EDT Imaging Radiology [address] [place] [address] 04/14/2024 10:30 AM EST Office Visit Rheumatology [facility] [address] [facility] [place] [address] Ankur Amezquita PA-C [address] [facility] [place] [address] Health Maintenance Due Date Last Done Comments [...] and were consensually agreed upon. Care Teams Precision Farming Coordinator Relationship Specialty Start Date End Date Lorena Jones PA-C [address] [facility] [place] [address] PCP - General Physician Sawing And Assembly Supervisor 06/18/22 documented as of this encounter
--- OUTSIDE RECORDS SUMMARY | 2024-04-12 00:15 | External Medical Summary | Summary of Care ---
Author Name Unknown Organization [facility] Address [address] [place] [address] Phone [phone] Care Team Providers Care Refrigeration Houseman Name Role Phone Lorena Jones PA-C Primary Care Provider [phone] Reason for Visit * Reason Onset Date Comments Information 01/27/2024 Encounter Details Date Type Department Care Team (Late st Contact Info) Description 01/27/2024 Telephone Hematology/Oncology Treatment, [place] [address] [place] [address] Ankur Amezquita PA-C [address] [place] [address] Information Allergies Active Allergy Reactions [...] Dyspnea. 1 g 06/13/2021 Active Saline Nasal [place] 0.65 % Nasal Solution (Deep Sea Nasal [place])Indications:Ot [place],Dysfunction of eustachian tube,Chronic rhinitis INSTILL 2 [...] 11/21/2011 08/29/2016 Overview: bmi= 48.42 11/21/11 terminal superintendent current use of ant icoagulant therapy 11/21/2011 08/29/2016 Overview: ICD-10 update of inactive term Cellulitis, leg 11/21/2011 10/09/2015 Dermatitis 11/21/2011 02/26/2015 Systemic lupus erythematosus 07/15/2005 11/21/2011 Ulcer of lower limb 11/27/2004 02/27/20 15 terminal superintendent current use of ant icoagulant therapy 09/19/2004 [...] Benlysta at the outside Home Infusion location? [facility] [address] [place] [address] FAX # [phone] ALINA Hairston 01/21/24 Rheum: it looks like there are several chains in chart regarding home infusion vs [facility]. Can beacon plan with [facility] be cancelled? documented in this encounter Plan of Treatment Upcoming Encounters Date Type Department Care Team (Late st Contact Info) Description 02/03/2024 10:00 AM EDT Office Visit [facility] [address] [place] [address] Lorena Jones PA-C [address] [place] [address] 02/16/2024 11:45 AM EDT Imaging Radiology [address] 132 [facility] [place] [address] 04/14/2024 10:30 AM EST Office Visit Rheumatology [facility] [address] [facility] [place] [address] Ankur Amezquita PA-C [address] [place] [address] Health Maintenance Due Date Last Done Comments [...] and were consensually agreed upon. Care Teams Refrigeration Houseman Relationship Specialty Start Date End Date Lorena Jones PA-C [address] [place] [facility] [place] [address] PCP - General Physician Commercial Helicopter Pilot 06/18/22 documented as of this encounter
--- OUTSIDE RECORDS SUMMARY | 2024-04-12 00:15 | External Medical Summary | Summary of Care ---
Author Name Unknown Organization [facility] Address [address] [place] [address] Phone [phone] Care Team Providers Care Weapons Electrical Engineering Officer Name Role Phone Lorena Jnoes PA-C Primary Care Provider [phone] Reason for Visit * Reason Onset Date Comments Medication Pre-auth 11/16/2023 Encounter Details Date Type Department Care Team (Late st Contact Info) Description 11/16/2023 Telephone Home [address] [address] Yusra Anderson, [facility] [address] [place] [address] Medication Pre-auth Allergies Active Allergy [...] Dyspnea. 1 g 06/13/2021 Active Saline Nasal [place] 0.65 % Nasal Solution (Deep Sea Nasal [place])Indications:O talgia,Dysfunction of eustachian tube,Chronic rhinitis INSTILL 2 [...] 40) 11/21/2011 08/29/2016 Overview: bmi= 48.42 11/21/11 penitentiary current use of ant icoagulant therapy 11/21/2011 08/29/2016 Overview: ICD-10 update of inactive term Cellulitis, leg 11/21/2011 10/09/2015 Dermatitis 11/21/2011 02/26/2015 Systemic lupus erythematosus 07/15/2005 11/21/2011 Ulcer of lower limb 11/27/2004 02/27/20 15 moth exterminator current use of ant icoagulant therapy [...] regarding her Benlysta. She said she called [employer] and they told the med was cancelled. Pt is wondering why. Please call: [phone] Please advise. * Telephone Encounter - Yusra Anderson [facility] - 12/10/2023 2:29 PM EDT LM x 2 * Telephone Encounter - Yusra Anderson [facility] - 12/07/2023 9:34 AM EDT LM re: If insurance has any other home infusion option that would be covered although it appears deductible would need to be met. Benlysta SQ may also be an option to consider as well * Telephone Encounter - Cici Carmona RP - 12/03/2023 1:26 PM EDT Called number below for Home health- they do not actually administer the drug. GHIS can you confirm if any copay card information was applied to the quote for saphnelo? * Telephone Encounter - Lorene Oquendo OSA - 12/02/2023 2:28 PM EDT [place] - Patient Related Communication Reason for Call: Medication forms (Pharmacy Pool): Pt called in stated she followed up with her insurance and was provided two places that are covered to give her infusion at home. [facility] [address] [place] [address] FAX # [phone] ALINA Richards * Telephone Encounter - Ankur Amezquita PA-C - 11/17/2023 9:53 AM EDT The only thing on the form was the name of two possible services which I do not remember at this time. It was faxed back in already. It looks like the patient can contact [employer] directly to inquire as well. They stated she was eligible, but did not note any associated costs. May still be cheaper toget through [employer]. I know the patient has issues with transportation so home infusions wouldbe easier for her and most likely increase her compliance. * Telephone Encounter - Ankur Amezquita PA-C - 11/16/2023 1:24 PM EDT I may have faxed the paper back. I can check when I am back in the office, but there was two servicers that her [employer] services recommended for the home infusions. * [...] LPN - 11/16/2023 11:42 AM EDT [employer] is following up on Rosemary. Do you have any updates as far as her Benlysta infusion to be scheduled? Please advise. Thank you. documented in this encounter Plan of Treatment Upcoming Encounters Date Type Department Care Team (Late st Contact Info) Description 02/03/2024 10:00 AM EDT Office Visit [facility] [place] [address] [facility] [phone] Lorena Jones PA-C [address] [place] [address] 02/16/2024 11:45 AM EDT Imaging Radiology [address] [place] [address] 04/14/2024 10:30 AM EST Office Visit Rheumatology [facility] [address] [place] [address] Ankur Amezquita PA-C [address] [place] [address] Health Maintenance Due Date Last Done Comments [...] Additional history exists Albumin/Creatinine Ratio 10/30/2025 10/30/2022, 1205/2011 Diabetes Screening 10/08/2026 10/09/2023, 0 10/14/2022, 07/24/2021, [...] and were consensually agreed upon. Care Teams Weapons Electrical Engineering Officer Relationship Specialty Start Date End Date Lorena Jones PA-C [address] [facility] [place] [address] PCP - General Physician Conversion Worker 06/18/22 documented as of this encounter
--- OUTSIDE RECORDS SUMMARY | 2024-04-12 00:16 | External Medical Summary | Summary of Care ---
Author Name Unknown Organization [facility] Address [address] [place] [address] Phone [phone] Care Team Providers Care Offal Trimmer Name Role Phone Lorena Jones PA-C Primary Care Provider [phone] Reason for Visit * Reason Onset Date Comments Forms Request 10/27/2023 [employer] requestin g home infusion Encounter Details Date Type Department Care Team (Late st Contact Info) Description 10/27/2023 Telephone Rheumatology [facility] [address] [place] [address] Ankur Amezquita PA-C [address] [place] [address] Forms Request ([employer] requesting home infu... Allergies [...] Dyspnea. 1 g 06/13/2021 Active Saline Nasal [place] 0.65 % Nasal Solution (Deep Sea Nasal [place])Indications:O talgia,Dysfunction of eustachian tube,Chronic rhinitis INSTILL 2 [...] 40) 11/21/2011 08/29/2016 Overview: bmi= 48.42 11/21/11 assistant terminal manager current use of ant icoagulant therapy 11/21/2011 08/29/2016 Overview: ICD-10 update of inactive term Cellulitis, leg 11/21/2011 10/09/2015 Dermatitis 11/21/2011 02/26/2015 Systemic lupus erythematosus 07/15/2005 11/21/2011 Ulcer of lower limb 11/27/2004 02/27/20 15 residential current use of ant icoagulant therapy 09/19/2004 [...] encounter Miscellaneous Notes * Telephone Encounter - Carmen Pitts [facility] - 01/26/2024 10:42 AM EDT Pt calling in regarding her Benlysta. She said she called [employer] insurance and they told the med was cancelled. Pt is wondering why. Please call: [phone] Please advise. Thank you, Carmen Pitts CPhT [place] [facility] ([facility]) 01/26/2024, 10:42 AM * Telephone Encounter - Ankur Amezquita PA-C - 11/06/2023 10:46 AM EDT Submitted for home infusions. * Telephone Encounter - Lorene Oquendo OSA - 11/05/2023 10:04 AM EDT [place] - Patient Related Communication Reason for Call: Prior auth/approval of non-DMARD (Python Consultant): Pt called in stating that her insurance reached out stating that they would rather her have infusion at home. Pt states that she is fine with either however if she could have it done at home, that would be ideal. Please contact pt at [phone] best after lunch. ALINA Richards * Telephone [...] 1:57 PM EDT Received a fax from [email or web address] requesting a home infusion for Benlysta. documented in this encounter Plan of Treatment Upcoming Encounters Date Type Department Care Team (Late st Contact Info) Description 02/03/2024 10:00 AM EDT Office Visit [facility] [address] [place] [address] Lorena Jones PA-C [address] [place] [address] 02/16/2024 11:45 AM EDT Imaging Radiology [address] 132 [facility] [place] [address] 04/14/2024 10:30 AM EST Office Visit Rheumatology [address] [place], [place] [address] Ankur Amezquita PA-C [facility] [place] [address] Health Maintenance Due Date Last Done Comments [...] and were consensually agreed upon. Care Teams Offal Trimmer Relationship Specialty Start Date End Date Lorena Jones PA-C [address] [facility] [place] [address] PCP - General Physician Trade Recruiter 06/18/22 documented as of this encounter
--- OUTSIDE RECORDS SUMMARY | 2024-04-12 00:16 | External Medical Summary | Summary of Care ---
Author Name Unknown Organization [facility] Address [address] [place] [address] Phone [phone] Care Team Providers Care Crane Chaser Name Role Phone Lorena Jones PA-C Primary Care Provider [phone] Reason for Visit * Reason Onset Date Comments Forms Request 10/27/2023 [employer] requestin g home infusion Encounter Details Date Type Department Care Team (Late st Contact Info) Description 10/27/2023 Telephone Rheumatology [facility] [address] [place] [address] Ankur Amezquita PA-C [address] [place] [address] Forms Request ([employer] requesting home infu... Allergies [...] Dyspnea. 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 We requested home infusions last I knew. Was she getting home infusions? She should still be getting benlysta * Telephone Encounter - Carmen Pitts CPhT - 01/26/2024 10:42 AM EDT Pt calling in regarding her Benlysta. She said she called [employer] insurance and they told the med was cancelled. Pt is wondering why. Please call: [phone] Please advise. Thank you, Carmen Pitts CPhT Online Merchandising Coordinator III [facility] ([facility]) 01/26/2024, 10:42 AM * Telephone Encounter - Ankur Amezquita PA-C - 11/06/2023 10:46 AM EDT Submitted for home infusions. * Telephone Encounter - Lorene Oquendo OSA - 11/05/2023 10:04 AM EDT [place] - Patient Related Communication Reason for Call: Prior auth/approval of non-DMARD (Capacity Planning Manager): Pt called in stating that her insurance reached out stating that they would rather her have infusion at home. Pt states that she is fine with either however if she could have it done at home, that would be ideal. Please contact pt at [phone] best after lunch. ALINA Richards * Telephone [...] 1:57 PM EDT Received a fax from [employer] requesting a home infusion for Benlysta. documented in this encounter Plan of Treatment Upcoming Encounters Date Type Department Care Team (Late st Contact Info) Description 02/03/2024 10:00 AM EDT Office Visit [facility] [address] [place] [address] Lorena Jones PA-C [address] [place] [address] 02/16/2024 11:45 AM EDT Imaging Radiology [address] 132 [facility] [place] [address] 04/14/2024 10:30 AM EST Office Visit Rheumatology [place] [address] [facility] [place] [address] Ankur Amezquita PA-C [address] [place] [address] Health Maintenance Due Date Last Done Comments [...] and were consensually agreed upon. Care Teams Crane Chaser Relationship Specialty Start Date End Date Lorena Jones PA-C [address] [place] [facility] [place] [address] PCP - General Physician Weight Loss Counselor 06/18/22 documented as of this encounter
--- OUTSIDE RECORDS SUMMARY | 2024-04-12 00:16 | External Medical Summary | Summary of Care ---
Author Name Unknown Organization [facility] Address [address] [place] [address] Phone [phone] Care Team Providers Care Hardware Designer Name Role Phone Lorena Jones PA-C Primary Care Provider [phone] Reason for Visit * Reason Onset Date Comments Forms Request 10/27/2023 [employer] requestin g home infusion Encounter Details Date Type Department Care Team (Late st Contact Info) Description 10/27/2023 Telephone Rheumatology [facility] [address] [place] [address] Ankur Amezquita PA-C [address] [place] [address] Forms Request ([employer] requesting home infu... Allergies [...] Dyspnea. 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 She said she called [employer] insurance and they told the med was cancelled. Pt is wondering why. Please call: [phone] Please advise. Thank you, Carmen Pitts CPhT Supervisor Finish End III [facility] ([facility]) 01/26/2024, 10:42 AM * Telephone Encounter - Ankur Amezquita PA-C - 11/06/2023 10:46 AM EDT Submitted for home infusions. * Telephone Encounter - Lorene Oquendo OSA - 11/05/2023 10:04 AM EDT [place] - Patient Related Communication Reason for Call: Prior auth/approval of non-DMARD ([employer]): Pt called in stating that her insurance reached out stating that they would rather her have infusion at home. Pt states that she is fine with either however if she could have it done at home, that would be ideal. Please contact pt at [phone] best after lunch. ALINA Richards * Telephone [...] 1:57 PM EDT Received a fax from [employer] requesting a home infusion for Benlysta. documented in this encounter Plan of Treatment Upcoming Encounters Date Type Department Care Team (Late st Contact Info) Description 02/03/2024 10:00 AM EDT Office Visit [facility] [address] [place] [id number] Lorena Jones PA-C [address] [place] [address] 02/16/2024 11:45 AM EDT Imaging Radiology [address] [facility] [place] [address] 04/14/2024 10:30 AM EST Office Visit Rheumatology [address] [place], [place] [address] Ankur Amezquita PA-C [facility] [employer] [facility] [place] [address] Health Maintenance Due Date Last Done Comments [...] and were consensually agreed upon. Care Teams Hardware Designer Relationship Specialty Start Date End Date Lorena Jones PA-C [address] [facility] [place] [address] PCP - General Physician Desizing Machine Operator Head End 06/18/22 documented as of this encounter
--- OUTSIDE RECORDS SUMMARY | 2024-04-12 00:16 | External Medical Summary | Summary of Care ---
Author Name Unknown Organization [facility] Address [address] [place] [address] Phone [phone] Care Team Providers Care Ship Steward Name Role Phone Lorena Jones PA-C Primary Care Provider [phone] Reason for Visit * Reason Onset Date Comments Referral 10/13/2023 Benlysta Encounter Details Date Type Department Care Team (Late st Contact Info) Description 10/13/[address] [facility] [address] [address] Ankur Amezquita [place] [address] Referral (Benlysta) Allergies Active Allergy Reactions Criticality Noted Date Comments Amlodipine Besylate Itching,Rash 03/01/2010 Itchy, rash Doxycycline Monohydrate Itching,Rash 03/01/2010 Itchy, rash Heparin 04/19/2019 Bacitracin-Polymyxin B Itching,Rash 03/01/2010 Itchy, rash Kdc:Pork Allergy Itching,Rash 03/01/2010 Itchy, rash Tetracycline 04/19/2019 Tetracycline Base Itching,Rash 03/01/2010 Itchy, rash Vancomycin 04/19/2019 documented as of this encounter (statuses as of 12/15/2023) Medications Medication Sig Dispensed Refills Start Date [...] Dyspnea. 1 g 06/13/2021 Active Saline Nasal [place] 0.65 % Nasal Solution (Deep Sea Nasal [place])Indications:O talgia,Dysfunction of eustachian tube,Chronic rhinitis INSTILL 2 [...] weeks. Weight = 125 kg 12/14/2023 Active belimumab (BENLYSTA) 400 MG SOLR 1200 mg IV every 4 weeks 3 Each 5 03/03/2016 Discontinue d(Refill) documented as of this encounter (statuses as of 12/15/2023) Active Problems Problem Noted Date Diagnosed Date [...] as of this encounter (statuses as of 12/15/2023) Resolved Problems Problem Noted Date Diagnosed Date [...] as of this encounter (statuses as of 12/15/2023) Immunizations Name Administration Dates Next Due Pneumococcal Conjugate Vacc, 13 Valent (Prevnar) 08/06/2021 Pneumococcal Polysaccharide PPV23 (Pneumovax) 03/06/2020 Seasonal Influenza, PF, 6 M & above, IM , (FluLaval or Fluzone) 02/04/2023,01/25/2020,04/20/2017 Seasonal Influenza, Split, I IV3, With Preserve, Inj 02/15/2016,02/19/2015,02/03/2014,03/21,03/02/2012,03/24/2011,03/01/2010 TDAP (age 10 and older)(Boostrix) 09/30/2013 [...] Telephone Encounter - Janis Conte LPN - 12/15/2023 11:40 AM EDT All information faxed as requested. Pt notified * Telephone Encounter - Jeffery Grijalva MD - 12/15/2023 9:58 AM EDT Form filled out and signed, please fax in * Telephone Encounter - Roxane Conte LPN - 12/14/2023 1:48 PM EDT Can you fill out an order sheet for CCP? * Addendum Note - Yusra Larson RPh - 12/14/2023 1:15 PM EDTAddended by: YUSRA LARSON on: 12/14/2023 01:15 PM Modules accepted: Orders * Telephone Encounter - Yusra Larson [facility] - 12/14/2023 1:14 PM EDT [place] Nurses: Please fax the following to # [phone]. Then call patient to confirm that the referral to [facility] was sent once complete Letter released today in "letter tab" RX about benlysta today Recent OV * Telephone Encounter - Roxane Conte LPN - 12/14/2023 11:21 AM EDT That is the correct place, fax # [phone] * Telephone Encounter - Yusra Larson RP - 12/08/2023 2:42 PM EDT LM for patient, wanted to confirm if this is correct infusion center. Need Fax number as well [facility] [place] Address: [address] [place] [address], [place], [place] [address], [facility] * Telephone Encounter - Chen Fernando OSA - 12/07/2023 3:34 PM EDT Pt calling about her Benlysta, pt of Ankur. Please reach out to her at [phone]. She would like us to send her Benlysta to [facility]. Please advise Thank-you! Chen * Telephone Encounter - Hoang Guy LPN - 12/01/2023 10:16 AM EDT Left message on pt phone to call Yusra with questions on Benlysta * Telephone Encounter - Renetta Rushing OSA - 11/09/2023 3:30 PM EDT [facility] - Benefits Investigation Response A benefits investigation has been completed for Benlysta. Patient: Rosemary Nguyen Deductible/cost information: Patient will have cost for Benlysta until she meets her $8050 Out of Pocket. Once met she will be covered with an authorization on file. Authorization will be sent once final orders are received. J0490 Benlysta 1200 mgs $1248.00 S9379 Pump or [place] Supplies $13.00 S9374 Hydration $11.00 J1100 Dexamethasone 8 mgs $0.20 J1200 Diphenhydramine 50 mgs $0.16 J0171 Epi .3 mgs $0.45 66536 Nursing up to 2 hours $18.90 28216 each additional hour $8.45 Please note: This is an estimate that was completed when [facility] submitted a test claim to the patient's insurance. It is not reflective of the final cost and is subject to change based on the authorization received. * Telephone Encounter - Papa Rios [facility] - 11/09/2023 8:16 AM EDT [facility] REQUEST FORM - Benefits Investigation Medication Information: Medication: Belimumab (Benlysta) - Maintenance - 10mg/kg every 4 weeks Diagnosis: SLE Next Scheduled Infusion Date: Due now Does patient qualify for copay assistance? No Please perform a benefits investigation to determine if [facility] can service patient. Response to be sent back to: RHEUM PHARMACIST REFILL POOL/CLASS [[id number]] Papa Rios, Pharm. D., [facility] Clinical Pharmacist 11/09/2023,8:17 AM * Telephone Encounter - Ankur Amezquita PA-C - 11/06/2023 10:45 AM EDT [employer] requesting home infusions of benlysta. Can this be authorized and set up. * Telephone Encounter - Roxane Conte LPN - 11/05/2023 12:03 PM EDT See message from 11/04, pt might be switching to home infusions. * Telephone Encounter - Carissa Larson RN - 11/05/2023 7:29 AM EDT Rheum: if/ when patient is ready to schedule, [place] p 36720. Thanks! * Telephone Encounter - Lorene So CPhT - 10/22/2023 8:37 AM EDT Rheumatology Referral: Infusions or Clinic Administered Medications (CAM) Infusion Approved, New Supportive Care Plan (NSCP) submitted, no action needed Thank you, Lorene Samaniego [facility] Integrated Circuit Layout Designer III [facility] ([facility]) 10/22/2023,8:37 AM * Telephone Encounter - Cici Carmona RP - 10/20/2023 10:04 AM EDT Called patient again. No answer LMOM advised patient to contact estimates at [phone] opt 4. * Telephone Encounter - Cici Carmona RPh - 10/16/2023 3:50 PM EDT Called patient to discuss message from PFC. No answer. LMOM * Telephone Encounter - Carissa Larson RN - 10/16/2023 7:41 AM EDT [facility] reviewed, but unable to determine estimated copay. Rheum: please advise if/ when patient is ready to be scheduled? * Telephone Encounter - Carissa Larson RN - 10/14/2023 12:07 PM EDT Referral entered, waiting for [facility] review. * Telephone Encounter - Carissa Larson RN - 10/13/2023 2:59 PM EDT Order received for benlysta. [place] plan built and routed for signature. Waiting for authKendy Rey: when auth is back- is benlysta available or would it need to be ordered? * Telephone Encounter - Ankur Amezquita PA-C - 10/13/2023 12:34 PM EDT Restart Benlysta since labs obtained. Last infusion done three months ago at [facility] Transition to [facility] documented in this encounter Plan of Treatment Upcoming Encounters Date Type Department Care Team (Late st Contact Info) Description 04/14/2024 10:30 AM EST Office Visit Rheumatology [place] [id number] [place] [address] Ankur Amezquita PA-C [address] [place] [address] Health Maintenance Due Date Last Done Comments COVID-19 Vaccine (#1) 1972 Hepatitis B Vaccine (1 of 3 - 19+ 3-dose series) 1986 Zoster Vaccines (1 of 2) 1986 Cologuard 2012 Fecal Occult Blood Test 2012 Sigmoidoscopy 2012 Depression Monitoring 06/18/2023 06/18/2022 DTaP,Tdap,and Td Vaccines (2 - Td or Tdap) 10/01/2023 [...] Not on filedocumented as of this encounter Visit Diagnoses Diagnosis Systemic lupus erythematosus, unspecified SLE type, unspecified organ involvement status (HCC)- Primary documented in this encounter Advance Directives * Full Code [...] and were consensually agreed upon. Care Teams Ship Steward Relationship Specialty Start Date End Date Lorena Jones PA-C [address] [place] [id number] PCP - General Physician Day Spa Manager 06/18/22 documented as of this encounter
--- OUTSIDE RECORDS SUMMARY | 2024-04-12 00:17 | External Medical Summary | Summary of Care ---
Author Name Unknown Organization [facility] Address [address] [place] [address] Phone [phone] Care Team Providers Care Center Director Name Role Phone Lorena Jones PA-C Primary Care Provider [phone] Reason for Visit * Reason Onset Date Comments Referral 10/13/2023 Benlysta Encounter Details Date Type Department Care Team (Late st Contact Info) Description 10/13/2023 Telephone Rheumatology [facility] [address] [address] Ankur Amezquita [place] [address] Referral (Benlysta) Allergies Active Allergy Reactions Criticality Noted Date Comments Amlodipine Besylate Itching,Rash 03/01/2010 Itchy, rash Doxycycline Monohydrate Itching,Rash 03/01/2010 Itchy, rash Heparin 04/19/2019 Bacitracin-Polymyxin B Itching,Rash 03/01/2010 Itchy, rash Kdc:Pork Allergy Itching,Rash 03/01/2010 Itchy, rash Tetracycline 04/19/2019 Tetracycline Base Itching,Rash 03/01/2010 Itchy, rash Vancomycin 04/19/2019 documented as of this encounter (statuses as of 12/07/2023) Medications Medication Sig Dispensed Refills Start Date [...] mouth every 6 hours as needed. Active belimumab (BENLYSTA) 400 MG SOLR 1200 mg IV every 4 weeks 3 Each 5 03/03/2016 Active fluticasone (FLONASE) 50 MCG/ACT nasal sprayIndications:Acu te sinus infection INSTILL 2 SPRAYS IN EACH NOSTRIL DAILY 48 g 1 08/04/2019 Active Ventolin HFA 108 (90 Base) MCG/ACT Inhalation Aerosol SolutionIndications: COVID-19,Cough,Acute URI Inhale by mouth 2 Puffs every 4 hours as needed for Wheezing or Dyspnea. 1 g 06/13/2021 Active Saline Nasal [place] 0.65 % Nasal Solution (Deep Sea Nasal [place])Indications:Ot algia,Dysfunction of eustachian tube,Chronic rhinitis INSTILL 2 [...] before bedtime. 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 Please reach out to her at [phone]. She would like us to send her Benlysta to [facility]. Please advise Thank-you! Chen * Telephone Encounter - Hoang Guy LPN - 12/01/2023 10:16 AM EDT Left message on pt phone to call Yusra with questions on Benlysta * Telephone Encounter - Renetta Rushing OSA - 11/09/2023 3:30 PM EDT [facility] - Benefits Investigation Response A benefits investigation has been completed for Benlysta. Patient: Rosemary Nguyen Deductible/cost information: Patient will have cost for Benlysta until she meets her $8050 Out of Pocket. Once met she will be covered with an authorization on file. Authorization will be sent once final orders are received. J0490 Benlysta 1200 mgs $1248.00 S9379 Pump or [place] Supplies $13.00 S9374 Hydration $11.00 J1100 Dexamethasone 8 mgs $0.20 J1200 Diphenhydramine 50 mgs $0.16 J0171 Epi .3 mgs $0.45 74760 Nursing up to 2 hours $18.90 38344 each additional hour $8.45 Please note: This is an estimate that was completed when [facility] submitted a test claim to the patient's insurance. It is not reflective of the final cost and is subject to change based on the authorization received. * Telephone Encounter - Papa Rios [facility] - 11/09/2023 8:16 AM EDT [facility] RE[facility] FORM - Benefits Investigation Medication Information: Medication: Belimumab (Benlysta) - Maintenance - 10mg/kg every 4 weeks Diagnosis: SLE Next Scheduled Infusion Date: Due now Does patient qualify for copay assistance? No Please perform a benefits investigation to determine if [facility] can service patient. Response to be sent back to: [facility] PHARMACIST REFILL POOL/CLASS [[id number]] Papa Rios, Pharm. D., [facility] Clinical Pharmacist 11/09/2023,8:17 AM * Telephone Encounter [...] ready to schedule, [place] [phone]. Thanks! * Telephone Encounter - Lorene So CPhT - 10/22/2023 8:37 AM EDT Rheumatology Referral: Infusions or Clinic Administered Medications (CAM) Infusion Approved, New Supportive Care Plan (NSCP) submitted, no action needed Thank you, Lorene Samaniego CPhT Basket Bottom Machine Operator III [facility] ([facility]) 10/22/2023,8:37 AM * Telephone Encounter - Cici Carmona RPh - 10/20/2023 10:04 AM EDT Called patient again. No answer LMOM advised patient to contact estimates at [phone] opt 4. * Telephone Encounter - Cici [...] 2:59 PM EDT Order received for benlysta. [place] plan built and routed for signature. Waiting for auth. Candido: when auth is back- is benlysta available or would it need to be ordered? * Telephone Encounter - Ankur Amezquita PA-C - 10/13/2023 12:34 PM EDT Restart Benlysta since labs obtained. Last infusion done three [facility] ago at [facility] documented in this encounter Plan of Treatment Upcoming Encounters Date Type Department Care Team (Late st Contact Info) Description 04/14/2024 10:30 AM EST Office Visit Rheumatology [facility] [address] [place] [address] Ankur Amezquita PA-C [address] [place] [address] Health Maintenance Due Date Last Done Comments [...] and were consensually agreed upon. Care Teams Center Director Relationship Specialty Start Date End Date Lorena Jones PA-C [address] [facility] [place] [address] PCP - General Physician Wash Tub Machine Operator 06/18/22 documented as of this encounter
--- OUTSIDE RECORDS SUMMARY | 2024-04-12 00:17 | External Medical Summary | Summary of Care ---
Author Name Unknown Organization [facility] Address [address] [place] [address] Phone [phone] Care Team Providers Care Systems Consultant Name Role Phone Lorena Jones PA-C Primary Care Provider +1 [phone] Reason for Visit * Reason Onset Date Comments Referral 10/13/2023 Benlysta Encounter Details Date Type Department Care Team (Late st Contact Info) Description 10/13/2023 Telephone Rheumatology [facility] [address] [place] [address] Ankur Amez[place] [address] Referral (Benlysta) Allergies Active Allergy Reactions Criticality Noted Date Comments Amlodipine Besylate Itching,Rash 03/01/2010 Itchy, rash Doxycycline Monohydrate Itching,Rash 03/01/2010 Itchy, rash Heparin 04/19/2019 Bacitracin-Polymyxin B Itching,Rash 03/01/2010 Itchy, rash Kdc:Pork Allergy Itching,Rash 03/01/2010 Itchy, rash Tetracycline 04/19/2019 Tetracycline Base Itching,Rash 03/01/2010 Itchy, rash Vancomycin 04/19/2019 documented as of this encounter (statuses as of 12/14/2023) Medications Medication Sig Dispensed Refills Start Date [...] Dyspnea. 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 * Addendum Note - Yusra Anderson RPh - 12/14/2023 1:15 PM EDTAddended by: YUSRA ANDERSON on: 12/14/2023 01:15 PM Modules accepted: Orders * Telephone Encounter - Yusra Anderson RP - 12/14/2023 1:14 PM EDT [facility] Nurses: Please fax the following to # [phone]. Then call patient to confirm that the referral to [facility] was sent once complete Letter released today in "letter tab" RX about benlysta today Recent OV * Telephone Encounter - Roxane Conte LPN - 12/14/2023 11:21 AM EDT That is the correct place, fax # [phone] * Telephone Encounter - Yusra Anderson RP - 12/08/2023 2:42 PM EDT LM for patient, wanted to confirm if this is correct infusion center. Need Fax number as well [facility] and [facility] [place] Address: [address] [place] [address], [place] * Telephone Encounter - Chen Fernando OSA - 12/07/2023 3:34 PM EDT Pt calling about her Benlysta, pt of Ankur. Please reach out to her at [phone]. She would like us to send her Benlysta to [facility]. Please advise Thank-you! Chen * Telephone Encounter - Hoang Guy LPN - 12/01/2023 10:16 AM EDT Left message on pt phone to call Yusra with questions on Benlysta * Telephone Encounter - Renetta Rushing OSA - 11/09/2023 3:30 PM EDT [facility] - Benefits Investigation Response A benefits investigation has been completed for Benlysta. Patient: Rosemary Nguyen Deductible/cost information: Patient will have cost for Benlysta until she meets her $8050 Out of Pocket. Once met she will be covered with an authorization on file. Authorization will be sent once final orders are received. J0490 Benlysta 1200 mgs $1248.00 S9379 Pump or [place] Supplies $13.00 S9374 Hydration $11.00 J1100 Dexamethasone 8 mgs $0.20 J1200 Diphenhydramine 50 mgs $0.16 J0171 Epi .3 mgs $0.45 97465 Nursing up to 2 hours $18.90 44760 each additional hour $8.45 Please note: This is an estimate that was completed when [facility] submitted a test claim to the patient's insurance. It is not reflective of the final cost and is subject to change based on the authorization received. * Telephone Encounter - Papa Rios RP - 11/09/2023 8:16 AM EDT [facility] REQUEST FORM - Benefits Investigation Medication Information: Medication: Belimumab (Benlysta) - Maintenance - 10mg/kg every 4 weeks Diagnosis: SLE Next Scheduled Infusion Date: Due now Does patient qualify for copay assistance? No Please perform a benefits investigation to determine if [facility] can service patient. Response to be sent back to: RHEUM PHARMACIST REFILL POOL/CLASS [[id number]] Papa Rois, PharmKendy D., [facility] Clinical Pharmacist 11/09/2023,8:17 AM * Telephone Encounter [...] ready to schedule, please route to p 13225. Thanks! * Telephone Encounter - Lorene So CPhT - 10/22/2023 8:37 AM EDT Rheumatology Referral: Infusions or Clinic Administered Medications (CAM) Infusion Approved, New Supportive Care Plan (NSCP) submitted, no action needed Thank you, Lorene Samaniego CPhT Nut Threader III [facility] ([facility]) 10/22/2023,8:37 AM * Telephone Encounter - Cici Carmona RPh - 10/20/2023 10:04 AM EDT Called patient again. No answer LMOM advised patient to contact estimates at [phone] opt 4. * Telephone Encounter - Cici [...] 2:59 PM EDT Order received for benlysta. [place] plan built and routed for signature. Waiting for auth. Candido: when auth is back- is benlysta available or would it need to be ordered? * Telephone Encounter - Ankur Amezquita PA-C - 10/13/2023 12:34 PM EDT Restart Benlysta since labs obtained. Last infusion done three months ago at [facility] Transition to [facility] documented in this encounter Plan of Treatment Upcoming Encounters Date Type Department Care Team (Late st Contact Info) Description 04/14/2024 10:30 AM EST Office [facility] [place] [address] [place] [address] Ankur Amezquita PA-C [address] [place] [address] Health Maintenance Due Date Last Done Comments [...] and were consensually agreed upon. Care Teams Systems Consultant Relationship Specialty Start Date End Date Lorena Jones PA-C [address] [facility] [place] [address] PCP - General Physician Lithograph Operator 06/18/22 documented as of this encounter
--- OUTSIDE RECORDS SUMMARY | 2024-04-12 00:17 | External Medical Summary | Summary of Care ---
Author Name Unknown Organization [facility] Address [address] [place] [address] Phone [phone] Care Team Providers Care Bottle And Glass Inspector Name Role Phone Lorena Jones PA-C Primary Care Provider [phone] [phone] Reason for Visit * Reason Onset Date Comments Medication Pre-auth 11/16/2023 Encounter Details Date Type Department Care Team (Late st Contact Info) Description 11/16/[address] [address] Yusra Anderson, [facility] [address] [place] [address] Medication Pre-auth Allergies Active Allergy Reactions Criticality Noted Date Comments Amlodipine Besylate Itching,Rash 03/01/2010 Itchy, rash Doxycycline Monohydrate Itching,Rash 03/01/2010 Itchy, rash Heparin 04/19/2019 Bacitracin-Polymyxin B Itching,Rash 03/01/2010 Itchy, rash Kdc:Pork Allergy Itching,Rash 03/01/2010 Itchy, rash Tetracycline 04/19/2019 Tetracycline Base Itching,Rash 03/01/2010 Itchy, rash Vancomycin 04/19/2019 documented as of this encounter (statuses as of 12/10/2023) Medications Medication Sig Dispensed Refills Start Date [...] Dyspnea. 1 g 06/13/2021 Active Saline Nasal [place] 0.65 % Nasal Solution (Deep Sea Nasal [place])Indications:[place],Dysfunction of eustachian tube,Chronic rhinitis INSTILL 2 [...] as of this encounter (statuses as of 12/10/2023) Active Problems Problem Noted Date Diagnosed Date [...] as of this encounter (statuses as of 12/10/2023) Resolved Problems Problem Noted Date Diagnosed Date [...] 40) 11/21/2011 08/29/2016 Overview: bmi= 48.42 11/21/11 prison current use of ant icoagulant therapy 11/21/2011 08/29/2016 Overview: ICD-10 update of inactive term Cellulitis, leg 11/21/2011 10/09/2015 Dermatitis 11/21/2011 02/26/2015 Systemic lupus erythematosus 07/15/2005 11/21/2011 Ulcer of lower limb 11/27/2004 02/27/20 15 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 Pt [facility] [address] [place] [address] FAX # [phone] ALINA Richards * Telephone Encounter - Ankur Amezquita PA-C - 11/17/2023 9:53 AM EDT The only thing on the form was the name of two possible services which I do not remember at this time. It was faxed back in already. It looks like the patient can contact [facility] directly to inquire as well. They stated she was eligible, but did not note any associated costs. May still be cheaper toget through [facility]. I know the patient has issues with [...] has not responded. * Telephone Encounter - Viyr Mcqueen LPN - 11/16/2023 11:42 AM EDT [facility] is following up on Rosemary. Do you have any updates as far as her Benlysta infusion to be scheduled? Please advise. Thank you. documented in this encounter Plan of Treatment Upcoming Encounters Date Type Department Care Team (Late st Contact Info) Description 04/14/2024 10:30 AM EST Office Visit Rheumatology [place] [id number] [place] [address] Ankur Amezquita PA-C [address] [place] [address] Health Maintenance Due Date Last Done Comments [...] and were consensually agreed upon. Care Teams Bottle And Glass Inspector Relationship Specialty Start Date End Date Lorena Jonse PA-C [address] [facility] [place] [address] PCP - General Physician Metal Miner 06/18/22 documented as of this encounter
--- OUTSIDE RECORDS SUMMARY | 2024-04-12 00:17 | External Medical Summary | Summary of Care ---
Author Name Unknown Organization [facility] Address [address] [place] [address] Phone [phone] Care Team Providers Care Lining Closer Name Role Phone Lorena Jones PA-C Primary Care Provider [phone] [phone] Reason for Visit * Reason Onset Date Comments Referral 10/13/2023 Benlysta Encounter Details Date Type Department Care Team (Late st Contact Info) Description 10/13/2023 Telephone Rheumatology [facility] [address] [address] Ankur Amezquita PA-[place] [address] Referral (Benlysta) Allergies Active Allergy Reactions Criticality [...] Dyspnea. 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 11/21/2011 08/29/2016 Overview: ICD-10 update of inactive term Cellulitis, leg 11/21/2011 10/09/2015 Dermatitis 11/21/2011 02/26/2015 Systemic lupus erythematosus 07/15/2005 11/21/2011 Ulcer of lower limb 11/27/2004 02/27/20 15 [facility] current use of ant icoagulant therapy 09/19/2004 [...] Miscellaneous Notes * Addendum Note - Yusra Anderson, [facility] - 12/14/2023 1:15 PM EDTAddended by: YUSRA ANDERSON on: 12/14/2023 01:15 PM Modules accepted: Orders * Telephone Encounter - Yusra Anderson RP - 12/14/2023 1:14 PM EDT [facility] [place] Nurses: Please fax the following to # [phone]. Then call patient to confirm that the referral to [facility] was sent once complete Letter released today in "letter tab" RX about benlysta today Recent OV * Telephone Encounter - Roxane Conte LPN - 12/14/2023 11:21 AM EDT That is the correct place, fax # [phone] * Telephone Encounter - Yusra Anderson [facility] - 12/08/2023 2:42 PM EDT LM for patient, wanted to confirm if this is correct infusion center. Need Fax number as well [facility] and [facility] [place] Address: [address] [place] [address], [facility] * Telephone Encounter - Chen Fernando OSA - 12/07/2023 3:34 PM EDT Pt calling about her Benlysta, pt of Ankur. Please reach out to her at [phone]. She would like us to send her Benlysta to [facility]. Please advise Thank-you! Chen * Telephone Encounter - Hoang Guy LPN - 12/01/2023 10:16 AM EDT Left message on pt phone to call Yusra with questions on Benlysta * Telephone Encounter - Renetta Rushing OSA - 11/09/2023 3:30 PM EDT [facility] - Benefits Investigation Response A benefits investigation has been completed for Benlysta. Patient: Rosemary Nguyen Deductible/cost information: Patient will have cost for Benlysta until she meets her $8050 Out of Pocket. Once met she will be covered with an authorization on file. Authorization will be sent once final orders are received. J0490 Benlysta 1200 mgs $1248.00 S9379 Pump or [place] Supplies $13.00 S9374 Hydration $11.00 J1100 Dexamethasone 8 mgs $0.20 J1200 Diphenhydramine 50 mgs $0.16 J0171 Epi .3 mgs $0.45 40042 Nursing up to 2 hours $18.90 36236 each additional hour $8.45 Please note: This is an estimate that was completed when [facility] submitted a test claim to the patient's insurance. It is not reflective of the final cost and is subject to change based on the authorization received. * Telephone Encounter - Papa Rios RPh - 11/09/2023 8:16 AM EDT [facility] REQUEST FORM - Benefits Investigation Medication Information: Medication: Belimumab (Benlysta) - Maintenance - 10mg/kg every 4 weeks Diagnosis: SLE Next Scheduled Infusion Date: Due now Does patient qualify for copay assistance? No Please perform a benefits investigation to determine if [facility] can service patient. Response to be sent back to: DARSHANA PHARMACIST REFILL POOL/CLASS [[id number]] Papa Rios Pharm. D., [facility] Clinical Pharmacist 11/09/2023,8:17 AM * Telephone [...] ready to schedule, [place] route to p 11248. Thanks! * Telephone Encounter - Lorene So CPhT - 10/22/2023 8:37 AM EDT Rheumatology Referral: Infusions or Clinic Administered Medications (CAM) Infusion Approved, New Supportive Care Plan (NSCP) submitted, no action needed Thank you, Lorene Samaniego [facility] Photolith Operator III [facility] ([facility]PS) 10/22/2023,8:37 AM * Telephone Encounter - Cici Carmona RPh - 10/20/2023 10:04 AM EDT Called patient again. No answer LMOM advised patient to contact estimates at [phone] opt 4. * Telephone Encounter - Cici [...] 2:59 PM EDT Order received for benlysta. [place] plan built and routed for signature. Waiting for authKendy Rey: when auth is back- is benlysta available or would it need to be ordered? * Telephone Encounter - Ankur Amezquita PA-C - 10/13/2023 12:34 PM EDT Restart Benlysta since labs obtained. Last infusion [facility] to [facility] documented in this encounter Plan of Treatment Upcoming Encounters Date Type Department Care Team (Late st Contact Info) Description 04/14/2024 10:30 AM EST Office Visit Rheumatology [address] [place] [address] Ankur Amezquita PA-C [facility] [place] [address] Health Maintenance Due Date Last Done Comments [...] and were consensually agreed upon. Care Teams Lining Closer Relationship Specialty Start Date End Date Lorena Jones PA-C [address] [facility] [place] [address] PCP - General Physician Shopper Insights Manager 06/18/22 documented as of this encounter
--- OUTSIDE RECORDS SUMMARY | 2024-04-12 00:17 | External Medical Summary | Summary of Care ---
Author Name Unknown Organization [facility] Address [address] [place] [address] Phone [phone] Care Team Providers Care Mobile Sales Consultant Name Role Phone Lorena Jones PA-C Primary Care Provider +1 [phone] Reason for Visit * Reason Onset Date Comments Referral 10/13/2023 Benlysta Encounter Details Date Type Department Care Team (Late st Contact Info) Description 10/13/2023 Telephone Rheumatology [facility] [address] [place] [address] Ankur Amezquita [place] [address] Referral (Benlysta) Allergies Active Allergy Reactions Criticality [...] Dyspnea. 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 Then call patient to confirm that the referral to [facility] was sent once complete Letter released today in "letter tab" RX about benlysta today Recent OV * Telephone Encounter - Roxane Conte LPN - 12/14/2023 11:21 AM EDT That is the correct place, fax # [phone] * Telephone Encounter - Yusra Larson RPh - 12/08/2023 2:42 PM EDT LM for patient, wanted to confirm if this is correct infusion center. Need Fax number as well [facility] [address] [facility] and [facility] [place] Address: [address] [place] [address], [place] * Telephone Encounter - Chen Fernando OSA - 12/07/2023 3:34 PM EDT Pt calling about her Benlysta, pt of Ankur. Please reach out to her at [phone]. She would like us to send her Benlysta to [facility]. Please advise Thank-you! Chen * Telephone Encounter - Hoang Guy LPN - 12/01/2023 10:16 AM EDT Left message on pt phone to call Yusra with questions on Benlysta * Telephone Encounter - Renetta Rushing OSA - 11/09/2023 3:30 PM EDT [facility] - Benefits Investigation Response A benefits investigation has been completed for Benlysta. Patient: Rosemary Nguyen Deductible/cost information: Patient will have cost for Benlysta until she meets her $8050 Out of Pocket. Once met she will be covered with an authorization on file. Authorization will be sent once final orders are received. J0490 Benlysta 1200 mgs $1248.00 S9379 Pump or [place] Supplies $13.00 S9374 Hydration $11.00 J1100 Dexamethasone 8 mgs $0.20 J1200 Diphenhydramine 50 mgs $0.16 J0171 Epi .3 mgs $0.45 17134 Nursing up to 2 hours $18.90 69016 each additional hour $8.45 Please note: This is an estimate that was completed when [facility] submitted a test claim to the patient's insurance. It is not reflective of the final cost and is subject to change based on the authorization received. * Telephone Encounter - Papa Rios [facility] - 11/09/2023 8:16 AM EDT [facility] REQUEST FORM - Benefits Investigation Medication Information: Medication: Belimumab (Benlysta) - Maintenance - 10mg/kg every 4 weeks Diagnosis: SLE Next Scheduled Infusion Date: Due now Does patient qualify for copay assistance? No Please perform a benefits investigation to determine if [facility] can service patient. Response to be sent back to: RHEUM PHARMACIST REFILL POOL/CLASS [[id number]] Papa Rios, PharmKendy DKendy, [facility] Clinical Pharmacist 11/09/2023,8:17 AM * Telephone Encounter [...] ready to schedule, [place] p 229[address]. Thanks! * Telephone Encounter - Lorene So CPhT - 10/22/2023 8:37 AM EDT Rheumatology Referral: Infusions or Clinic Administered Medications (CAM) Infusion Approved, New Supportive Care Plan (NSCP) submitted, no action needed Thank you, Lorene Samaniego CPhT Rn Labor Delivery III [facility] ([facility]) 10/22/2023,8:37 AM * Telephone Encounter - Cici Carmona [facility] - 10/20/2023 10:04 AM EDT Called patient again. No answer LMOM advised patient to contact estimates at [phone] opt 4. * Telephone Encounter - Cici Carmona [facility] - 10/16/2023 3:50 PM EDT Called patient [...] 2:59 PM EDT Order received for benlysta. [place] plan built and routed for signature. Waiting for authKendy Rey: when auth is back- is benlysta available or would it need to be ordered? * Telephone Encounter - Ankur Amezquita PA-C - 10/13/2023 12:34 PM EDT Restart Benlysta since labs obtained. [facility] documented in this encounter Plan of Treatment Upcoming Encounters Date Type Department Care Team (Late st Contact Info) Description 04/14/2024 10:30 AM EST Office Visit Rheumatology [facility] [address] [place] [address] Ankur Amezquita PA-C [address] [place] [address] Health Maintenance Due Date Last Done Comments [...] and were consensually agreed upon. Care Teams Mobile Sales Consultant Relationship Specialty Start Date End Date Lorena Jones PA-C [address] [place] [address] PCP - General Physician Router Operator 06/18/22 documented as of this encounter
--- OUTSIDE RECORDS SUMMARY | 2024-04-12 00:17 | External Medical Summary | Summary of Care ---
Author Name Unknown Organization [facility] Address [address] [place] [address] Phone [phone] Care Team Providers Care Keyboard Teacher Name Role Phone Lorena Jones PA-C Primary Care Provider [phone] [phone] Reason for Visit * Reason Onset Date Comments Referral 10/13/2023 Benlysta Encounter Details Date Type Department Care Team (Late st Contact Info) Description 10/13/2023 Telephone Rheumatology [facility] [address] [place] [address] Ankur Amezquita [place] [address] Referral (Benlysta) Allergies Active Allergy Reactions Criticality Noted Date Comments Amlodipine Besylate Itching,Rash 03/01/2010 Itchy, rash Doxycycline Monohydrate Itching,Rash 03/01/2010 Itchy, rash Heparin 04/19/2019 Bacitracin-Polymyxin B Itching,Rash 03/01/2010 Itchy, rash Kdc:Pork Allergy Itching,Rash 03/01/2010 Itchy, rash Tetracycline 04/19/2019 Tetracycline Base Itching,Rash 03/01/2010 Itchy, rash Vancomycin 04/19/2019 documented as of this encounter (statuses as of 12/08/2023) Medications Medication Sig Dispensed Refills Start Date [...] Dyspnea. 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 Need Fax number as well [facility] and [facility] Address: [address] [place] [address], [place] * Telephone Encounter - Chen Fernando OSA - 12/07/2023 3:34 PM EDT Pt calling about her Benlysta, pt of Ankur. Please reach out to her at [phone]. She would like us to send her Benlysta to [facility]. Please advise Thank-you! Chen * Telephone Encounter - Hoang Guy LPN - 12/01/2023 10:16 AM EDT Left message on pt phone to call Yusra with questions on Benlysta * Telephone Encounter - Renetta Rushing OSA - 11/09/2023 3:30 PM EDT [facility] - Benefits Investigation Response A benefits investigation has been completed for Benlysta. Patient: Rosemary Nguyen Deductible/cost information: Patient will have cost for Benlysta until she meets her $8050 Out of Pocket. Once met she will be covered with an authorization on file. Authorization will be sent once final orders are received. J0490 Benlysta 1200 mgs $1248.00 S9379 Pump or [place] Supplies $13.00 S9374 Hydration $11.00 J1100 Dexamethasone 8 mgs $0.20 J1200 Diphenhydramine 50 mgs $0.16 J0171 Epi .3 mgs $0.45 97591 Nursing up to 2 hours $18.90 46411 each additional hour $8.45 Please note: This is an estimate that was completed when [facility] submitted a test claim to the patient's insurance. It is not reflective of the final cost and is subject to change based on the authorization received. * Telephone Encounter - Papa Rios [facility] - 11/09/2023 8:16 AM EDT [facility] REQUEST FORM - Benefits Investigation Medication Information: Medication: Belimumab (Benlysta) - Maintenance - 10mg/kg every 4 weeks Diagnosis: SLE Next Scheduled Infusion Date: Due now Does patient qualify for copay assistance? No Please perform a benefits investigation to determine if [facility] can service patient. Response to be sent back to: [facility]HEUM PHARMACIST REFILL POOL/CLASS [[id number]] Papa Rios, Pharm. D., [facility] Clinical Pharmacist 11/09/2023,8:17 AM * Telephone [...] ready [place], [place] [phone]. Thanks! * Telephone Encounter - Lorene So CPhT - 10/22/2023 8:37 AM EDT Rheumatology Referral: Infusions or Clinic Administered Medications (CAM) Infusion Approved, New Supportive Care Plan (NSCP) submitted, no action needed Thank you, Lorene Samaniego [facility] Tube Cutter Operator III Centralized Clinical Pharmacy Services (CCPS) 10/22/2023,8:37 AM * Telephone Encounter - Cici Carmona RP - 10/20/2023 10:04 AM EDT Called patient again. No answer LMOM advised patient to contact estimates at [phone] opt 4. * Telephone Encounter - Cici Carmona RP - 10/16/2023 3:50 PM EDT Called patient [...] 2:59 PM EDT Order received for benlysta. [place] plan built and routed for signature. Waiting for authKendy Rey: when auth is back- is benlysta available or would it need to be ordered? * Telephone Encounter - Ankur Amezquita PA-C - 10/13/2023 12:34 PM EDT Restart Benlysta since labs obtained. [facility] infusion [facility] documented in this encounter Plan of Treatment Upcoming Encounters Date Type Department Care Team (Late st Contact Info) Description 04/14/2024 10:30 AM EST Office Visit Rheumatology [address] [place] [address] Ankur Amezquita PA-C [address] [place] [address] Health Maintenance Due Date Last Done Comments [...] PPSV23 or PCV20) 2032 08/06/2021, 03/06/2020, 05/11/2000 HIV Screening Completed 12/21/2018 Hepatitis C Screening Completed 07/24/2021, 017 HPV (Gardasil) Vaccine Aged Out No lo [...] and were consensually agreed upon. Care Teams Keyboard Teacher Relationship Specialty Start Date End Date Lorena Jones PA-C [address] [place] [address] PCP - General Physician Health Therapist 06/18/22 documented as of this encounter
--- OUTSIDE RECORDS SUMMARY | 2024-04-12 00:17 | External Medical Summary | Summary of Care ---
Author Name Unknown Organization [facility] Address [address] [place] [address] Phone [phone] Care Team Providers Care Supervisor Dairy Sanitation Name Role Phone Lorena Jones PA-C Primary Care Provider [phone] Reason for Visit * Reason Onset Date Comments Referral 10/13/2023 Benlysta Encounter Details Date Type Department Care Team (Late st Contact Info) Description 10/13/[address] [facility] [address] [address] Ankur Amezquita [email or web address] [address] Referral (Benlysta) Allergies Active Allergy Reactions Criticality [...] Dyspnea. 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 Then call patient to confirm that the referral to [facility] was sent once complete Letter released today in "letter tab" RX about benlysta today Recent OV * Telephone Encounter - Roxane Conte LPN - 12/14/2023 11:21 AM EDT That is the correct place, fax # [phone] * Telephone Encounter - Yusra Anderson [facility] - 12/08/2023 2:42 PM EDT LM for patient, wanted to confirm if this is correct infusion center. Need Fax number as well [facility] and [facility] Address: [address] [place] [address], [facility] * Telephone Encounter - Chen Fernando OSA - 12/07/2023 3:34 PM EDT Pt calling about her Benlysta, pt of Ankur. Please reach out to her at [phone]. She would like us to send her Benlysta to [facility]. Please advise Thank-you! Chen * Telephone Encounter - Hoang Guy LPN - 12/01/2023 10:16 AM EDT Left message on pt phone to call Yusra with questions on Benlysta * Telephone Encounter - Renetta Rushing OSA - 11/09/2023 3:30 PM EDT [facility] - Benefits Investigation Response A benefits investigation has been completed for Benlysta. Patient: Rosemary Nguyen Deductible/cost information: Patient will have cost for Benlysta until she meets her $8050 Out of Pocket. Once met she will be covered with an authorization on file. Authorization will be sent once final orders are received. J0490 Benlysta 1200 mgs $1248.00 S9379 Pump or [place] Supplies $13.00 S9374 Hydration $11.00 J1100 Dexamethasone 8 mgs $0.20 J1200 Diphenhydramine 50 mgs $0.16 J0171 Epi .3 mgs $0.45 24750 Nursing up to 2 hours $18.90 05404 each additional hour $8.45 Please note: This is an estimate that was completed when [facility] submitted a test claim to the patient's insurance. It is not reflective of the final cost and is subject to change based on the authorization received. * Telephone Encounter - Papa Rios RPh - 11/09/2023 8:16 AM EDT [facility] REQUEST FORM - Benefits Investigation Medication Information: Medication: Belimumab (Benlysta) - Maintenance - 10mg/kg every 4 weeks Diagnosis: SLE Next Scheduled Infusion Date: Due now Does patient qualify for copay assistance? No Please perform a benefits investigation to determine if [facility] can service patient. Response to be sent back to: DARSHANA PHARMACIST REFILL POOL/CLASS [[id number]] Papa Rios Pharm. D., [facility] Clinical Pharmacist 11/09/2023,8:17 AM * Telephone [...] ready to schedule, [place] [phone]. Thanks! * Telephone Encounter - Lorene So CPhT - 10/22/2023 8:37 AM EDT Rheumatology Referral: Infusions or Clinic Administered Medications (CAM) Infusion Approved, New Supportive Care Plan (NSCP) submitted, no action needed Thank you, Lorene Samaniego [facility] Imager III Centralized Clinical Pharmacy Services (CCPS) 10/22/2023,8:37 AM * Telephone Encounter - Cici Carmona RPh - 10/20/2023 10:04 AM EDT Called patient again. No answer LMOM advised patient to contact estimates at [phone] opt 4. * Telephone Encounter - Cici [...] 2:59 PM EDT Order received for benlysta. [place] plan built and routed for signature. Waiting for authKendy Rey: when auth is back- is benlysta available or would it need to be ordered? * Telephone Encounter - Ankur Amezquita PA-C - 10/13/2023 12:34 PM EDT Restart Benlysta since labs obtained. [facility] documented in this encounter Plan of Treatment Upcoming Encounters Date Type Department Care Team (Late st Contact Info) Description 04/14/2024 10:30 AM EST Office Visit Rheumatology [address] [place] [address] Ankur Amezquita PA-C [facility] [address] [place] [address] Health Maintenance Due Date Last Done Comments [...] and were consensually agreed upon. Care Teams Supervisor Dairy Sanitation Relationship Specialty Start Date End Date Lorena Jones PA-C [address] [facility] [place] [address] PCP - General Physician Motorcycle Subassembly Repairer 06/18/22 documented as of this encounter
--- OUTSIDE RECORDS SUMMARY | 2024-04-12 00:17 | External Medical Summary | Summary of Care ---
Author Name Unknown Organization [facility] Address [address] [place] [address] Phone [phone] Care Team Providers Care Senior It Project Manager Name Role Phone Lorena Jones PA-C Primary Care Provider +1 [phone] Reason for Visit * Reason Onset Date Comments Referral 10/13/2023 Benlysta Encounter Details Date Type Department Care Team (Late st Contact Info) Description 10/13/2023 Telephone Rheumatology [facility] [address] [address] Ankur [place]mezqu[place] [address] Referral (Benlysta) Allergies Active Allergy Reactions Criticality [...] Dyspnea. 1 g 06/13/2021 Active Saline Nasal [place] 0.65 % Nasal Solution (Deep Sea Nasal [place])Indications:Ot algia,Dysfunction of eustachian tube,Chronic rhinitis INSTILL 2 [...] 40) 11/21/2011 08/29/2016 Overview: bmi= 48.42 11/21/11 group home current use of ant icoagulant therapy 11/21/2011 08/29/2016 Overview: ICD-10 update of inactive term Cellulitis, leg 11/21/2011 10/09/2015 Dermatitis 11/21/2011 02/26/2015 Systemic lupus erythematosus 07/15/2005 11/21/2011 Ulcer of lower limb 11/27/2004 02/27/20 15 watermelon inspector current use of ant icoagulant therapy 09/19/2004 [...] That is the correct place, fax # [phone] * Telephone Encounter - Yusra Anderson [facility] - 12/08/2023 2:42 PM EDT LM for patient, wanted to confirm if this is correct infusion center. Need Fax number as well [facility] and [facility] Address: [address] [place] [address], [facility] * Telephone Encounter - Chen Fernando OSA - 12/07/2023 3:34 PM EDT Pt calling about her Benlysta, pt of Ankur. Please reach out to her at [phone]. She would like us to send her Benlysta to [facility]. Please advise Thank-you! Chen * Telephone Encounter - Hoang Guy LPN - 12/01/2023 10:16 AM EDT Left message on pt phone to call Yusra with questions on Benlysta * Telephone Encounter - Renetta Rushing OSA - 11/09/2023 3:30 PM EDT [facility] - Benefits Investigation Response A benefits investigation has been completed for Benlysta. Patient: Rosemary Nguyen Deductible/cost information: Patient will have cost for Benlysta until she meets her $8050 Out of Pocket. Once met she will be covered with an authorization on file. Authorization will be sent once final orders are received. J0490 Benlysta 1200 mgs $1248.00 S9379 Pump or [place] Supplies $13.00 S9374 Hydration $11.00 J1100 Dexamethasone 8 mgs $0.20 J1200 Diphenhydramine 50 mgs $0.16 J0171 Epi .3 mgs $0.45 88992 Nursing up to 2 hours $18.90 14988 each additional hour $8.45 Please note: This is an estimate that was completed when [facility] submitted a test claim to the patient's insurance. It is not reflective of the final cost and is subject to change based on the authorization received. * Telephone Encounter - Papa Rios RP - 11/09/2023 8:16 AM EDT [facility]FUSION SERVICES REQUEST FORM - Benefits Investigation Medication Information: Medication: Belimumab (Benlysta) - Maintenance - 10mg/kg every 4 weeks Diagnosis: SLE Next Scheduled Infusion Date: Due now Does patient qualify for copay assistance? No Please perform a benefits investigation to determine if [facility] can service patient. Response to be sent back to: [facility] PHARMACIST REFILL POOL/CLASS [[id number]] Papa Rios, Pharm. DKendy, [facility] Clinical Pharmacist 11/09/2023,8:17 AM * Telephone [...] ready to schedule, [place] [phone]. Thanks! * Telephone Encounter - Lorene So CPhT - 10/22/2023 8:37 AM EDT Rheumatology Referral: Infusions or Clinic Administered Medications (CAM) Infusion Approved, New Supportive Care Plan (NSCP) submitted, no action needed Thank you, Lorene Samaniego [facility] Communications Executive III Centralized Clinical Pharmacy Services (CCPS) 10/22/2023,8:37 AM * Telephone Encounter - Cici Carmona RPh - 10/20/2023 10:04 AM EDT Called patient again. No answer LMOM advised patient to contact estimates at [phone] opt 4. * Telephone Encounter - Cici [...] 2:59 PM EDT Order received for benlysta. [place] plan built and routed for signature. Waiting for ruthKendy Rey: when auth is back- is benlysta available or would it need to be ordered? * Telephone Encounter - Ankur Amezquita PA-C - 10/13/2023 12:34 PM EDT Restart Benlysta since labs obtained. Last infusion done three months ago at [facility] Transition to [facility] documented in this encounter Plan of Treatment Upcoming Encounters Date Type Department Care Team (Late st Contact Info) Description 04/14/2024 10:30 AM EST Office Visit Rheumatology [place] [address] [place] [address] Ankur Amezquita PA-C [facility] [employer] [place] [address] Health Maintenance Due Date Last Done Comments [...] and were consensually agreed upon. Care Teams Senior It Project Manager Relationship Specialty Start Date End Date Lorena Jones PA-C [address] [place] [address] PCP - General Physician Toy Department Manager 06/18/22 documented as of this encounter
--- OUTSIDE RECORDS SUMMARY | 2024-04-12 00:18 | External Medical Summary | Summary of Care ---
Author Name Unknown Organization [facility] Address [address] [place] [address] Phone [phone] Care Team Providers Care Benefits Processor Name Role Phone Lorena Joens PA-C Primary Care Provider +1 [phone] Reason for Visit * Reason Onset Date Comments Referral 10/13/2023 Benlysta Encounter Details Date Type Department Care Team (Late st Contact Info) Description 10/13/2023 Telephone Rheumatology [facility] [address] [place] [address] Ankur Amezquita PA-[place] [address] [place] [address] Referral (Benlysta) Allergies Active Allergy Reactions Criticality Noted Date Comments Amlodipine Besylate Itching,Rash 03/01/2010 Itchy, rash Doxycycline Monohydrate Itching,Rash 03/01/2010 Itchy, rash Heparin 04/19/2019 Bacitracin-Polymyxin B Itching,Rash 03/01/2010 Itchy, rash Kdc:Pork Allergy Itching,Rash 03/01/2010 Itchy, rash Tetracycline 04/19/2019 Tetracycline Base Itching,Rash 03/01/2010 Itchy, rash Vancomycin 04/19/2019 documented as of this encounter (statuses as of 12/01/2023) Medications Medication Sig Dispensed Refills Start Date [...] Dyspnea. 1 g 06/13/2021 Active Saline Nasal [place] 0.65 % Nasal Solution (Deep Sea Nasal [place])Indications:Ot algia,Dysfunction of eustachian tube,Chronic rhinitis INSTILL 2 [...] as of this encounter (statuses as of 12/01/2023) Active Problems Problem Noted Date Diagnosed Date [...] as of this encounter (statuses as of 12/01/2023) Resolved Problems Problem Noted Date Diagnosed Date [...] 40) 11/21/2011 08/29/2016 Overview: bmi= 48.42 11/21/11 oysterman current use of ant icoagulant therapy 11/21/2011 08/29/2016 Overview: ICD-10 update of inactive term Cellulitis, leg 11/21/2011 10/09/2015 Dermatitis 11/21/2011 02/26/2015 Systemic lupus erythematosus 07/15/2005 11/21/2011 Ulcer of lower limb 11/27/2004 02/27/20 15 oysterman current use of ant icoagulant therapy 09/19/2004 [...] as of this encounter (statuses as of 12/01/2023) Immunizations Name Administration Dates Next Due Pneumococcal [...] encounter Miscellaneous Notes * Telephone Encounter - Hoang Guy LPN - 12/01/2023 10:16 AM EDT Left message on pt phone to call Yusra with questions on Benlysta * Telephone Encounter - Renetta Rushing OSA - 11/09/2023 3:30 PM EDT [facility] - Benefits Investigation Response A benefits investigation has been completed for Benlysta. Patient: Rosemary Nguyen Deductible/cost information: Patient will have cost for Benlysta until she meets her $8050 Out of Pocket. Once met she will be covered with an authorization on file. Authorization will be sent once final orders are received. J0490 Benlysta 1200 mgs $1248.00 S9379 Pump or [place] [employer] $13.00 S9374 Hydration $11.00 J1100 Dexamethasone 8 mgs $0.20 J1200 Diphenhydramine 50 mgs $0.16 J0171 Epi .3 mgs $0.45 17711 Nursing up to 2 hours $18.90 54608 each additional hour $8.45 Please note: This is an estimate that was completed when [facility] submitted a test claim to the patient's insurance. It is not reflective of the final cost and is subject to change based on the authorization received. * Telephone Encounter - Papa Rios RPh - 11/09/2023 8:16 AM EDT [facility] RE[facility] FORM - Benefits Investigation Medication Information: Medication: Belimumab (Benlysta) - Maintenance - 10mg/kg every 4 weeks Diagnosis: SLE Next Scheduled Infusion Date: Due now Does patient qualify for copay assistance? No Please perform a benefits investigation to determine if [facility] can service patient. Response to be sent back to: [email or web address] PHARMACIST REFILL POOL/CLASS [[id number]] Papa Rios, Pharm. D., [facility] Clinical Pharmacist 11/09/2023,8:17 AM * Telephone Encounter [...] ready to schedule, [place] [phone]. Thanks! * Telephone Encounter - Lorene So CPhT - 10/22/2023 8:37 AM EDT Rheumatology Referral: Infusions or Clinic Administered Medications (CAM) Infusion Approved, New Supportive Care Plan (NSCP) submitted, no action needed Thank you, Lorene Samaniego [facility] Digital Advertising Specialist III Centralized Clinical Pharmacy Services (CCPS) 10/22/2023,8:37 AM * Telephone Encounter - Cici Carmona RPh - 10/20/2023 10:04 AM EDT Called patient again. No answer LMOM advised patient to contact estimates at [phone] opt 4. * Telephone Encounter - Cici Carmona RPh - 10/16/2023 3:50 PM EDT Called patient to discuss message from [facility]. No answer. LMOM * Telephone Encounter - [...] 2:59 PM EDT Order received for benlysta. [place] plan built and routed for signature. Waiting for auth. Candido: when auth is back- is benlysta available or would it need to be ordered? * Telephone Encounter - Ankur Amezquita PA-C - 10/13/2023 12:34 PM EDT Restart Benlysta since labs obtained. Last [facility] documented in this encounter Plan of Treatment Upcoming Encounters Date Type Department Care Team (Late st Contact Info) Description 04/14/2024 10:30 AM EST Office Visit Rheumatology [facility] [address] [facility] [place] [address] Ankur Amezquita PA-C [address] [place] [address] Health Maintenance Due Date Last Done Comments [...] and were consensually agreed upon. Care Teams Benefits Processor Relationship Specialty Start Date End Date Lorena Jones PA-C [address] [facility] [place] [address] PCP - General Physician Lumber Stacker Driver 06/18/22 documented as of this encounter
--- OUTSIDE RECORDS SUMMARY | 2024-04-12 00:18 | External Medical Summary | Summary of Care ---
Author Name Unknown Organization [facility] Address [address] [place] [address] Phone [phone] Care Team Providers Care Core Loader Name Role Phone Lorena Jones PA-C Primary Care Provider [phone] [phone] Reason for Visit * Reason Onset Date Comments Medication Pre-auth 11/16/2023 Encounter Details Date Type Department Care Team (Late st Contact Info) Description 11/16/2023 Telephone Home [address] [address] Yusra Anderson, [facility] [address] [place] [address] Medication Pre-auth Allergies Active Allergy Reactions Criticality Noted Date Comments Amlodipine Besylate Itching,Rash 03/01/2010 Itchy, rash Doxycycline Monohydrate Itching,Rash 03/01/2010 Itchy, rash Heparin 04/19/2019 Bacitracin-Polymyxin B Itching,Rash 03/01/2010 Itchy, rash Kdc:Pork Allergy Itching,Rash 03/01/2010 Itchy, rash Tetracycline 04/19/2019 Tetracycline Base Itching,Rash 03/01/2010 Itchy, rash Vancomycin 04/19/2019 documented as of this encounter (statuses as of 12/04/2023) Medications Medication Sig Dispensed Refills Start Date [...] Dyspnea. 1 g 06/13/2021 Active Saline Nasal [place] 0.65 % Nasal Solution (Deep Sea Nasal [place])Indications:Ot algia,Dysfunction of eustachian tube,Chronic rhinitis INSTILL [...] as of this encounter (statuses as of 12/04/2023) Active Problems Problem Noted Date Diagnosed Date [...] as of this encounter (statuses as of 12/04/2023) Resolved Problems Problem Noted Date Diagnosed Date [...] 40) 11/21/2011 08/29/2016 Overview: bmi= 48.42 11/21/11 assisted current use of ant icoagulant therapy 11/21/2011 08/29/2016 Overview: ICD-10 update of inactive term Cellulitis, leg 11/21/2011 10/09/2015 Dermatitis 11/21/2011 02/26/2015 Systemic lupus erythematosus 07/15/2005 11/21/2011 Ulcer of lower limb 11/27/2004 02/27/20 15 manager terminal current use of ant icoagulant therapy [...] as of this encounter (statuses as of 12/04/2023) Immunizations Name Administration Dates Next Due Pneumococcal [...] Notes * Telephone Encounter - Cici Carmona RPh - 12/03/2023 1:26 PM EDT Called number below for Home health- they do not actually administer the drug. GHIS can you confirm if any copay card information was applied to the quote for saphnelo? * Telephone Encounter - Lorene Oquendo OSA - 12/02/2023 2:28 PM EDT [place] - Patient Related Communication Reason for Call: Medication forms (Pharmacy Pool): Pt called in stated she followed up with her insurance and was provided two places that are covered to give her infusion at home. Pt is requesting the order be faxedto [address] FAX # [phone] ALINA Richards * Telephone Encounter - Ankur Amezquita PA-C - 11/17/2023 9:53 AM EDT The only thing on the form was the name of two possible services which I do not remember at this time. It was faxed back in already. It looks like the patient can contact [facility] directly to inquire as well. They stated she was eligible, but did not note any associated costs. May still be cheaper toget through [employer]. I know the patient has issues with transportation so home infusions wouldbe easier for her and most likely increase her compliance. * Telephone Encounter - Ankur Amezquita PA-C - 11/16/2023 1:24 PM EDT I may have faxed the paper back. I can check when I am back in the office, but there was two servicers that her [employer] services recommended for the home infusions. * Telephone Encounter - Yusra Anderson [facility] - 11/16/2023 12:43 PM EDT As per [...] 04/14/2024 10:30 AM EST Office Visit Rheumatology [place] [id number] [employer] [place] [id number] Ankur Amezquita PA-C [address] [place] [address] Health Maintenance Due Date Last Done Comments [...] and were consensually agreed upon. Care Teams Core Loader Relationship Specialty Start Date End Date Lorena Jones PA-C [address] [place] [id number] PCP - General Physician Workers Compensation Coordinator 06/18/22 documented as of this encounter
--- OUTSIDE RECORDS SUMMARY | 2024-04-12 00:18 | External Medical Summary | Summary of Care ---
Author Name Unknown Organization [facility] Address [address] [place] [address] Phone [phone] Care Team Providers Care Open Hearth Furnace Operator Helper Name Role Phone Lorena Jones PA-C Primary Care Provider +1 [phone] Reason for Visit * Reason Onset Date Comments Medication Pre-auth 11/16/2023 Encounter Details Date Type Department Care Team (Late st Contact Info) Description 11/16/2023 Telephone Home [address] [address] Yusra Anderson, [facility] [address] [place] [address] Medication Pre-auth Allergies Active Allergy Reactions Criticality Noted Date Comments Amlodipine Besylate Itching,Rash 03/01/2010 Itchy, rash Doxycycline Monohydrate Itching,Rash 03/01/2010 Itchy, rash Heparin 04/19/2019 Bacitracin-Polymyxin B Itching,Rash 03/01/2010 Itchy, rash Kdc:Pork Allergy Itching,Rash 03/01/2010 Itchy, rash Tetracycline 04/19/2019 Tetracycline Base Itching,Rash 03/01/2010 Itchy, rash Vancomycin 04/19/2019 documented as of this encounter (statuses as of 12/02/2023) Medications Medication Sig Dispensed Refills Start Date [...] Dyspnea. 1 g 06/13/2021 Active Saline Nasal [place] 0.65 % Nasal Solution (Deep Sea Nasal [place])Indications:Ot algia,Dysfunction of eustachian tube,Chronic rhinitis INSTILL 2 [...] as of this encounter (statuses as of 12/02/2023) Active Problems Problem Noted Date Diagnosed Date [...] as of this encounter (statuses as of 12/02/2023) Resolved Problems Problem Noted Date Diagnosed Date [...] 40) 11/21/2011 08/29/2016 Overview: bmi= 48.42 11/21/11 jail current use of ant icoagulant therapy 11/21/2011 [...] as of this encounter (statuses as of 12/02/2023) Immunizations Name Administration Dates Next Due Pneumococcal [...] Oquendo OSA - 12/02/2023 2:28 PM EDT [employer] - Patient Related Communication Reason for Call: Medication forms (Pharmacy Pool): Pt called in stated she followed up with her insurance and was provided two places that are covered to give her infusion at home. [facility] [address] [facility] # [phone] ALINA Richards * Telephone Encounter - Ankur [...] costs. May still be cheaper toget through [employer]. I know the patient has issues with transportation so home infusions wouldbe easier for her and most likely increase her compliance. * Telephone Encounter - Ankur Amezquita PA-C - 11/16/2023 1:24 PM EDT I may have faxed the paper back. I can check when I am back in the office, but there was two servicers that her [facility] services recommended for the home infusions. * [...] 04/14/2024 10:30 AM EST Office Visit Rheumatology [facility] [address] [place] [address] Ankur Amezquita PA-C [address] [place] [address] Health Maintenance Due Date Last Done Comments [...] and were consensually agreed upon. Care Teams Open Hearth Furnace Operator Helper Relationship Specialty Start Date End Date Lorena Jones PA-C [address] [facility] [place] [address] PCP - General Physician Lead Coater 06/18/22 documented as of this encounter
--- OUTSIDE RECORDS SUMMARY | 2024-04-12 00:18 | External Medical Summary | Summary of Care ---
Author Name Unknown Organization [facility] Address [address] [place] [address] Phone [phone] Care Team Providers Care Wheelage Clerk Name Role Phone Lorena Jones PA-C Primary Care Provider [phone] [phone] Reason for Visit * Reason Onset Date Comments Medication Pre-auth 11/16/2023 Encounter Details Date Type Department Care Team (Late st Contact Info) Description 11/16/2023 Telephone Home [address] [address] Yusra Anderson, [facility] [address] [place] [address] Medication Pre-auth Allergies Active Allergy [...] Dyspnea. 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 Pt is requesting the order be faxedto [facility] [address] [place] [address] FAX # [phone] ALINA Richards * Telephone Encounter - Ankur [...] costs. May still be cheaper toget through [employer] I know the patient has issues with transportation so home infusions wouldbe easier for her and most likely increase her compliance. * Telephone Encounter - Ankur Amezquita PA-C - 11/16/2023 1:24 PM EDT I may have faxed the paper back. I can check when I am back in the office, but there was two servicers that her Human services recommended for the home infusions. * [...] 04/14/2024 10:30 AM EST Office Visit Rheumatology [place] [address] [place] [address] Ankur Amezquita PA-C [facility] [place] [address] Health Maintenance Due Date Last Done Comments [...] and were consensually agreed upon. Care Teams Wheelage Clerk Relationship Specialty Start Date End Date Lorena Jones PA-C [address] [facility] [place] [address] PCP - General Physician Director Sanitation Bureau 06/18/22 documented as of this encounter
--- OUTSIDE RECORDS SUMMARY | 2024-04-12 00:18 | External Medical Summary | Summary of Care ---
Author Name Unknown Organization [facility] Address [address] [place] [address] Phone [phone] Care Team Providers Care Pocketbook Maker Name Role Phone Lorena Jones PA-C Primary Care Provider [phone] [phone] Reason for Visit * Reason Onset Date Comments Medication Pre-auth 11/16/2023 Encounter Details Date Type Department Care Team (Late st Contact Info) Description 11/16/2023 Telephone Home [address] [address] Yusra Anderson, [facility] [address] [place] [address] Medication Pre-auth Allergies Active Allergy Reactions Criticality Noted Date Comments Amlodipine Besylate Itching,Rash 03/01/2010 Itchy, rash Doxycycline Monohydrate Itching,Rash 03/01/2010 Itchy, rash Heparin 04/19/2019 Bacitracin-Polymyxin B Itching,Rash 03/01/2010 Itchy, rash Kdc:Pork Allergy Itching,Rash 03/01/2010 Itchy, rash Tetracycline 04/19/2019 Tetracycline Base Itching,Rash 03/01/2010 Itchy, rash Vancomycin 04/19/2019 documented as of this encounter (statuses as of 12/03/2023) Medications Medication Sig Dispensed Refills Start Date [...] Dyspnea. 1 g 06/13/2021 Active Saline Nasal [place] 0.65 % Nasal Solution (Deep Sea Nasal [place])Indications:Ot algia,Dysfunction of eustachian tube,Chronic rhinitis INSTILL 2 [...] as of this encounter (statuses as of 12/03/2023) Active Problems Problem Noted Date Diagnosed Date [...] as of this encounter (statuses as of 12/03/2023) Resolved Problems Problem Noted Date Diagnosed Date [...] 40) 11/21/2011 08/29/2016 Overview: bmi= 48.42 11/21/11 intermediate current use of ant icoagulant therapy 11/21/2011 [...] as of this encounter (statuses as of 12/03/2023) Immunizations Name Administration Dates Next Due Pneumococcal [...] Oquendo OSA - 12/02/2023 2:28 PM EDT [place] - Patient Related Communication Reason for Call: Medication forms (Pharmacy Pool): Pt called in stated she followed up with her insurance and was provided two places that are covered to give her infusion at home. Pt is requesting the order be faxedto [address] FAX # [phone] ALINA Richards * Telephone Encounter - Ankur Amezquita PA-C - 11/17/2023 9:53 AM EDT The only thing on the form was the name of two possible services which I do not remember at this time. It was faxed back in already. It looks like the patient can contact [facility] directly to inquire as well. They stated she was eligible, but did not note any associated costs. May still be cheaper toget through [employer]. I know the patient has issues with transportation so home infusions wouldbe easier for her and most likely increase her compliance. * Telephone Encounter - Ankur Amezquita PA-C - 11/16/2023 1:24 PM EDT I may have faxed the paper back. I can check when I am back in the office, but there was two servicers that her [employer] services recommended for the home infusions. * Telephone Encounter - Yusra Anderson [facility] - 11/16/2023 12:43 PM EDT As per [...] 04/14/2024 10:30 AM EST Office Visit Rheumatology [place] [id number] [place] [address] Ankur Amezquita PA-C [address] [place] [address] Health Maintenance Due Date Last Done Comments [...] and were consensually agreed upon. Care Teams Pocketbook Maker Relationship Specialty Start Date End Date Lorena Jones PA-C [address] [place] [id number] PCP - General Physician Manager Site 06/18/22 documented as of this encounter
--- OUTSIDE RECORDS SUMMARY | 2024-04-12 00:19 | External Medical Summary | Summary of Care ---
Author Name Unknown Organization [facility] Address [address] [place] [address] Phone [phone] Care Team Providers Care Incident Engineer Name Role Phone Lorena Jones PA-C Primary Care Provider [phone] [phone] Encounter Details Date Type Department Care Team (Late st Contact Info) Description 11/16/2023 Telephone Home [facility] [address] [place] [address] [facility] [address] [place] [address] Allergies Active Allergy Reactions Criticality Noted Date Comments Amlodipine Besylate Itching,Rash 03/01/2010 Itchy, rash Doxycycline Monohydrate Itching,Rash 03/01/2010 Itchy, rash Heparin 04/19/2019 Bacitracin-Polymyxin B Itching,Rash 03/01/2010 Itchy, rash Kdc:Pork Allergy Itching,Rash 03/01/2010 Itchy, rash Tetracycline 04/19/2019 Tetracycline Base Itching,Rash 03/01/2010 Itchy, rash Vancomycin 04/19/2019 documented as of this encounter (statuses as of 11/16/2023) Medications Medication Sig Dispensed Refills Start Date [...] Dyspnea. 1 g 06/13/2021 Active Saline Nasal [place] 0.65 % Nasal Solution (Deep Sea Nasal [place])Indications:Ot algia,Dysfunction of eustachian tube,Chronic rhinitis INSTILL [...] as of this encounter (statuses as of 11/16/2023) Active Problems Problem Noted Date Diagnosed Date [...] as of this encounter (statuses as of 11/16/2023) Resolved Problems Problem Noted Date Diagnosed Date [...] of lower limb 11/27/2004 02/27/20 15 manager intermediate current use of ant icoagulant therapy 09/19/2004 [...] as of this encounter (statuses as of 11/16/2023) Immunizations Name Administration Dates Next Due Pneumococcal [...] 04/14/2024 10:30 AM EST Office Visit Rheumatology [facility] [address] [place] [address] Ankur Amezquita PA-C [address] [place] [address] Health Maintenance Due Date Last Done Comments [...] and were consensually agreed upon. Care Teams Incident Engineer Relationship Specialty Start Date End Date Lorena Jones PA-C [address] [place] [address] PCP - General Physician Detail Sergeant 06/18/22 documented as of this encounter
--- OUTSIDE RECORDS SUMMARY | 2024-04-12 00:19 | External Medical Summary | Summary of Care ---
Author Name Unknown Organization [facility] Address [address] [place] [address] Phone [phone] Care Team Providers Care Transmitter Engineer In Charge Name Role Phone Lorena Jones PA-C Primary Care Provider [phone] -[phone] Encounter Details Date Type Department Care Team (Late st Contact Info) Description 11/16/2023 Telephone Home [facility] [place] [address] [place] [address] [facility] [address] [place] [address] Allergies Active Allergy Reactions Criticality Noted Date Comments Amlodipine Besylate Itching,Rash 03/01/2010 Itchy, rash Doxycycline Monohydrate Itching,Rash 03/01/2010 Itchy, rash Heparin 04/19/2019 Bacitracin-Polymyxin B Itching,Rash 03/01/2010 Itchy, rash Kdc:Pork Allergy Itching,Rash 03/01/2010 Itchy, rash Tetracycline 04/19/2019 Tetracycline Base Itching,Rash 03/01/2010 Itchy, rash Vancomycin 04/19/2019 documented as of this encounter (statuses as of 11/17/2023) Medications Medication Sig Dispensed Refills Start Date [...] Dyspnea. 1 g 06/13/2021 Active Saline Nasal [place] 0.65 % Nasal Solution (Deep Sea Nasal [place])Indications:Ot algia,Dysfunction of eustachian tube,Chronic rhinitis INSTILL 2 [...] as of this encounter (statuses as of 11/17/2023) Active Problems Problem Noted Date Diagnosed Date [...] as of this encounter (statuses as of 11/17/2023) Resolved Problems Problem Noted Date Diagnosed Date [...] Ulcer of lower limb 11/27/2004 02/27/20 15 marker machine current use of ant icoagulant therapy 09/19/2004 [...] as of this encounter (statuses as of 11/17/2023) Immunizations Name Administration Dates Next Due Pneumococcal [...] It looks like the patient can contact [facility] directly to inquire as well. They stated she was eligible, but did not note any associated costs. May still be cheaper toget through [employer]. I know the patient has issues with transportation so home infusions wouldbe easier for her and most likely increase her compliance. * Telephone Encounter - Ankur Amezquita PA-C - 11/16/2023 1:24 PM EDT I may have faxed the paper back. I can check when I am back in the office, but there was two servicers that her [employer] services recommended for the home infusions. [...] 04/14/2024 10:30 AM EST Office Visit Rheumatology [facility] [address] [place] [address] Ankur Amezquita PA-C [address] [place] [address] Health Maintenance Due Date Last Done Comments [...] and were consensually agreed upon. Care Teams Transmitter Engineer In Charge Relationship Specialty Start Date End Date Lorena Jones PA-C [address] [facility] [place] [address] PCP - General Physician Coffee Bar Attendant 06/18/22 documented as of this encounter
--- OUTSIDE RECORDS SUMMARY | 2024-04-12 00:19 | External Medical Summary | Summary of Care ---
Author Name Unknown Organization [facility] Address [address] [place] [address] Phone [phone] Care Team Providers Care Under Cutting Machine Operator Name Role Phone Lorena Jones PA-C Primary Care Provider +1 -[phone] Encounter Details Date Type Department Care Team (Late st Contact Info) Description 11/16/2023 Telephone Home [facility] [place] [address] [place] [address] [facility] [address] [place] [address] Allergies Active Allergy Reactions Criticality [...] Dyspnea. 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 Do you have any updates as far as her Benlysta infusion to be scheduled? Please advise. Thank you. documented in this encounter Plan of Treatment Upcoming Encounters Date Type Department Care Team (Late st Contact Info) Description 04/14/2024 10:30 AM EST Office Visit Rheumatology [facility] [address] [employer] [place] [address] Ankur Amezquita PA-C [address] [place] [address] Health Maintenance Due Date Last Done Comments [...] and were consensually agreed upon. Care Teams Under Cutting Machine Operator Relationship Specialty Start Date End Date Lorena Jones PA-C [address] [facility] [place] [address] PCP - General Physician Biology Intern 06/18/22 documented as of this encounter
--- OUTSIDE RECORDS SUMMARY | 2024-04-12 00:19 | External Medical Summary | Summary of Care ---
Author Name Unknown Organization [facility] Address [address] [place] [address] Phone [phone] Care Team Providers Care Test Bore Helper Name Role Phone Lorena Jones PA-C Primary Care Provider +1 -[phone] Reason for Visit * Reason Onset Date Comments Medication Pre-auth 11/16/2023 Encounter Details Date Type Department Care Team (Late st Contact Info) Description 11/16/2023 Telephone Home [address] [address] Yusra Anderson, [facility] [address] [place] [address] Medication Pre-auth Allergies Active Allergy [...] Dyspnea. 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 They stated she was eligible, but did not note any associated costs. May still be cheaper toget through [employer]. I know the patient has issues with transportation so home infusions wouldbe easier for her and most likely increase her compliance. * Telephone Encounter - Ankur Amezquita PA-C - 11/16/2023 1:24 PM EDT I may have faxed the paper back. I can check when I am back in the office, but there was two servicers that her [employer] services recommended for the home infusions. * [...] LPN - 11/16/2023 11:42 AM EDT Pro Meng--[facility] is following up on Rosemary. Do you have any updates as far as her Benlysta infusion to be scheduled? Please advise. Thank you. documented in this encounter Plan of Treatment Upcoming Encounters Date Type Department Care Team (Late st Contact Info) Description 04/14/2024 10:30 AM EST Office Visit Rheumatology [place] [id number] [employer] [place], [place] [address] Ankur Amezquita PA-C [address] [place] [address] Health Maintenance Due Date Last Done Comments [...] and were consensually agreed upon. Care Teams Test Bore Helper Relationship Specialty Start Date End Date Lorena Jones PA-C [address] [place] [address] PCP - General Physician Professor Of Art History 06/18/22 documented as of this encounter
--- OUTSIDE RECORDS SUMMARY | 2024-04-12 00:19 | External Medical Summary | Summary of Care ---
Author Name Unknown Organization [facility] Address [address] [place] [address] Phone [phone] Care Team Providers Care Armored Machine Operator Name Role Phone Lorena Jones PA-C Primary Care Provider +1 -[phone] Reason for Visit * Reason Onset Date Comments Forms Request 10/27/2023 [employer] requestin g home infusion Encounter Details Date Type Department Care Team (Late st Contact Info) Description 10/27/2023 Telephone Rheumatology [facility] [address] [place] [address] Ankur Amezquita PA-C [address] [place] [address] Forms Request (Hum[employer] requesting home infu... Allergies [...] Dyspnea. 1 g 06/13/2021 Active Saline Nasal [place] 0.65 % Nasal Solution (Deep Sea Nasal [place])Indications:Ot algia,Dysfunction of eustachian tube,Chronic rhinitis INSTILL 2 [...] Ulcer of lower limb 11/27/2004 02/27/20 15 [facility] current use of ant icoagulant therapy 09/19/2004 [...] Oquendo OSA - 11/05/2023 10:04 AM EDT [place] - Patient Related Communication Reason for Call: Prior auth/approval of non-DMARD ([place]): Pt called in stating that her insurance reached out stating that they would rather her have infusion at home. Pt states that she is fine with either however if she could have it done at home, that would be ideal. Please contact pt at [phone] best after lunch. ALINA Richards * Telephone [...] 1:57 PM EDT Received a fax from [place] requesting a home infusion for Benlysta. documented in this encounter Plan of Treatment Upcoming Encounters Date Type Department Care Team (Late st Contact Info) Description 04/14/2024 10:30 AM EST Office Visit Rheumatology [place] [id number] [facility] [place] [address] Ankur Amezquita PA-C [facility] [employer] [place] [address] Health Maintenance Due Date Last Done Comments [...] and were consensually agreed upon. Care Teams Armored Machine Operator Relationship Specialty Start Date End Date Lorena Jones PA-C [address] [facility] [place] [address] PCP - General Physician Certified Orthoptist 06/18/22 documented as of this encounter
--- OUTSIDE RECORDS SUMMARY | 2024-04-12 00:19 | External Medical Summary | Summary of Care ---
Author Name Unknown Organization [facility] Address [address] [place] [address] Phone [phone] Care Team Providers Care Activity Manager Name Role Phone Lorena Jones PA-C Primary Care Provider +1 -[phone] Reason for Visit * Reason Onset Date Comments Referral 10/13/2023 Benlysta Encounter Details Date Type Department Care Team (Late st Contact Info) Description 10/13/2023 Telephone Rheumatology [facility] [address] [address] Ankur Amezquita PA-C [place] [address] Referral (Benlysta) Allergies Active Allergy Reactions Criticality Noted Date Comments Amlodipine Besylate Itching,Rash 03/01/2010 Itchy, rash Doxycycline Monohydrate Itching,Rash 03/01/2010 Itchy, rash Heparin 04/19/2019 Bacitracin-Polymyxin B Itching,Rash 03/01/2010 Itchy, rash Kdc:Pork Allergy Itching,Rash 03/01/2010 Itchy, rash Tetracycline 04/19/2019 Tetracycline Base Itching,Rash 03/01/2010 Itchy, rash Vancomycin 04/19/2019 documented as of this encounter (statuses as of 11/09/2023) Medications Medication Sig Dispensed Refills Start Date [...] Dyspnea. 1 g 06/13/2021 Active Saline Nasal [place] 0.65 % Nasal Solution (Deep Sea Nasal [place])Indications:Ot algia,Dysfunction of eustachian tube,Chronic rhinitis INSTILL 2 [...] as of this encounter (statuses as of 11/09/2023) Active Problems Problem Noted Date Diagnosed Date [...] as of this encounter (statuses as of 11/09/2023) Resolved Problems Problem Noted Date Diagnosed Date [...] as of this encounter (statuses as of 11/09/2023) Immunizations Name Administration Dates Next Due Pneumococcal [...] Rushing OSA - 11/09/2023 3:30 PM EDT [facility] - Benefits Investigation Response A benefits investigation has been completed for Benlysta. Patient: Rosemary Nguyen Deductible/cost information: Patient will have cost for Benlysta until she meets her $8050 Out of Pocket. Once met she will be covered with an authorization on file. Authorization will be sent once final orders are received. J0490 Benlysta 1200 mgs $1248.00 S9379 Pump or [place] Supplies $13.00 S9374 Hydration $11.00 J1100 Dexamethasone 8 mgs $0.20 J1200 Diphenhydramine 50 mgs $0.16 J0171 Epi .3 mgs $0.45 62873 Nursing up to 2 hours $18.90 53430 each additional hour $8.45 Please note: This is an estimate that was completed when [facility] submitted a test claim to the patient's insurance. It is not reflective of the final cost and is subject to change based on the authorization received. * Telephone Encounter - Papa Rios RP - 11/09/2023 8:16 AM EDT [facility] HOME INFUSION SERVICES REQUEST FORM - Benefits Investigation Medication Information: Medication: Belimumab (Benlysta) - Maintenance - 10mg/kg every 4 weeks Diagnosis: SLE Next Scheduled Infusion Date: Due now Does patient qualify for copay assistance? No Please perform a benefits investigation to determine if [facility] can service patient. Response to be sent back to: DARSHANA PHARMACIST REFILL POOL/CLASS [[id number]] Papa Rios, Pharm. D., [facility] Clinical Pharmacist 11/09/2023,8:17 AM * Telephone [...] ready to schedule, [place] [address]. Thanks! * Telephone Encounter - Lorene So CPhT - 10/22/2023 8:37 AM EDT Rheumatology Referral: Infusions or Clinic Administered Medications (CAM) Infusion Approved, New Supportive Care Plan (NSCP) submitted, no action needed Thank you, Lorene Samaniego [facility] Asset Card Clerk III [facility] Pharmacy Services (CCPS) 10/22/2023,8:37 AM * Telephone Encounter - Cici Carmona RP - 10/20/2023 10:04 AM EDT Called patient again. No answer LMOM advised patient to contact estimates at [phone] opt 4. * Telephone Encounter - Cici Carmona RPh - 10/16/2023 3:50 PM EDT Called patient to discuss message from [facility]. No answer. LMOM * Telephone Encounter [...] 2:59 PM EDT Order received for benlysta. [place] plan built and routed for signature. Waiting for auth. Candido: when auth is back- is benlysta available or would it need to be ordered? * Telephone Encounter - Ankur Amezquita PA-C - 10/13/2023 12:34 PM EDT Restart Benlysta since labs obtained. [facility] documented in this encounter Plan of Treatment Upcoming Encounters Date Type Department Care Team (Late st Contact Info) Description 04/14/2024 10:30 AM EST Office Visit Rheumatology [address] [place] [address] Ankur Amezquita PA-C [facility] [place] [address] Health Maintenance Due Date Last Done Comments COVID-19 Vaccine (#1) 1972 Hepatitis B (1 of 3 - 19+ 3-dose series) [...] PPSV23 or PCV20) 2032 08/06/2021, 03/06/2020, 05/11/2000 GARDASIL-HPV IMMUNIZATION SERIES Aged Out No longer eligible based on [...] and were consensually agreed upon. Care Teams Activity Manager Relationship Specialty Start Date End Date Lorena Jones PA-C [address] [facility] [place] [address] PCP - General Physician Roll Machine Operator 06/18/22 documented as of this encounter
--- OUTSIDE RECORDS SUMMARY | 2024-04-12 00:19 | External Medical Summary | Summary of Care ---
Author Name Unknown Organization [facility] Address [address] [place] [address] Phone [phone] Care Team Providers Care Embedded Case Manager Name Role Phone Lorena Jones PA-C Primary Care Provider +1 [phone] Encounter Details Date Type Department Care Team (Late st Contact Info) Description 11/16/2023 Telephone Home [facility] [place] [address] [place] [address] [facility] [address] [place] [address] Allergies Active Allergy Reactions Criticality [...] Dyspnea. 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 * Telephone Encounter - Yusra Anderson, [facility] - 11/16/2023 12:43 PM EDT As [...] 04/14/2024 10:30 AM EST Office Visit Rheumatology [place] [address] [employer] (Service[employer] [place] [address] Ankur Amezquita PA-C [facility] [employer] [place] [address] Health Maintenance Due Date Last Done Comments [...] and were consensually agreed upon. Care Teams Embedded Case Manager Relationship Specialty Start Date End Date Lorena Jones PA-C [address] [facility] [place] [address] PCP - General Physician Hammer Adjuster 06/18/22 documented as of this encounter
--- OUTSIDE RECORDS SUMMARY | 2024-04-12 00:19 | External Medical Summary | Summary of Care ---
Author Name Unknown Organization [facility] Address [address] [place] [address] Phone [phone] Care Team Providers Care Land Management Forester Name Role Phone Lorena Jones PA-C Primary Care Provider +1 -[phone] Reason for Visit * Reason Onset Date Comments Forms Request 10/27/2023 [employer] requestin g home infusion Encounter Details Date Type Department Care Team (Late st Contact Info) Description 10/27/2023 Telephone Rheumatology [facility] [address] [place] [address] Ankur Amezquita PA-C [address] [place] [address] Forms Request ([employer] requesting home infu... Allergies [...] Dyspnea. 1 g 06/13/2021 Active Saline Nasal [place] 0.65 % Nasal Solution (Deep Sea Nasal [place])Indications:Ot algia,Dysfunction of eustachian tube,Chronic rhinitis INSTILL 2 [...] Oquendo OSA - 11/05/2023 10:04 AM EDT [place] - Patient Related Communication Reason for Call: Prior auth/approval of non-DMARD ([place]): Pt called in stating that her insurance reached out stating that they would rather her have infusion at home. Pt states that she is fine with either however if she could have it done at home, that would be ideal. Please contact pt at [phone] best after lunch. ALINA Richards * Telephone [...] 1:57 PM EDT Received a fax from [place] requesting a home infusion for Benlysta. documented in this encounter Plan of Treatment Upcoming Encounters Date Type Department Care Team (Late st Contact Info) Description 04/14/2024 10:30 AM EST Office Visit Rheumatology [place] [address] [facility] [place] [address] Ankur Amezquita PA-C [facility] [place] [address] Health Maintenance Due Date Last Done Comments [...] and were consensually agreed upon. Care Teams Land Management Forester Relationship Specialty Start Date End Date Lorena Jones PA-C [address] [facility] [place] [address] PCP - General Physician Registrar Nurses' Registry 06/18/22 documented as of this encounter
--- OUTSIDE RECORDS SUMMARY | 2024-04-12 00:20 | External Medical Summary | Summary of Care ---
Author Name Unknown Organization [facility] Address [address] [place] [address] Phone [phone] Care Team Providers Care Melt Superintendant Name Role Phone Lorena Jones PA-C Primary Care Provider +1 -[phone] Reason for Visit * Reason Onset Date Comments Referral 10/13/2023 Benlysta Encounter Details Date Type Department Care Team (Late st Contact Info) Description 10/13/2023 Telephone Rheumatology [facility] [address] [address] Ankur Amezquita PA-C [address] [place] [address] Referral (Benlysta) Allergies Active Allergy Reactions Criticality [...] Dyspnea. 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 11/21/2011 08/29/2016 Overview: ICD-10 update of inactive term Cellulitis, leg 11/21/2011 10/09/2015 Dermatitis 11/21/2011 02/26/2015 Systemic lupus erythematosus 07/15/2005 11/21/2011 Ulcer of lower limb 11/27/2004 02/27/20 15 snf current use of ant icoagulant therapy 09/19/2004 [...] encounter Miscellaneous Notes * Telephone Encounter - Papa Rios, [facility] - 11/09/2023 8:16 AM EDT [facility] REQUEST FORM - Benefits Investigation Medication Information: Medication: Belimumab (Benlysta) - Maintenance - 10mg/kg every 4 weeks Diagnosis: SLE Next Scheduled Infusion Date: Due now Does patient qualify for copay assistance? No Please perform a benefits investigation to determine if [facility] can service patient. Response to be sent back to: RHEUM PHARMACIST REFILL POOL/CLASS [[id number]] Papa Rios, Pharm. D., [facility] Clinical Pharmacist 11/09/2023,8:17 AM * Telephone Encounter [...] ready to schedule, [place] [address]. Thanks! * Telephone Encounter - Lorene So CPhT - 10/22/2023 8:37 AM EDT Rheumatology Referral: Infusions or Clinic Administered Medications (CAM) Infusion Approved, New Supportive Care Plan (NSCP) submitted, no action needed Thank you, Lorene Samaniego CPhT Head Bander And Liner Operator III [facility] Pharmacy Services (CCPS) 10/22/2023,8:37 AM * Telephone Encounter - Cici Carmona RPh - 10/20/2023 10:04 AM EDT Called patient again. No answer LMOM advised patient to contact estimates at [phone] opt 4. * Telephone Encounter - Cici [...] 2:59 PM EDT Order received for benlysta. [place] plan built and routed for signature. Waiting for auth. Candido: when auth is back- is benlysta available or would it need to be ordered? * Telephone Encounter - Ankur Amezquita PA-C - 10/13/2023 12:34 PM EDT Restart Benlysta since labs obtained. Last infusion done three months ago at [facility] to [facility] documented in this encounter Plan of Treatment Upcoming Encounters Date Type Department Care Team (Late st Contact Info) Description 04/14/2024 10:30 AM EST Office Visit Rheumatology [place] [address] [place] [address] Ankur Amezquita PA-C [address] [place] [address] Health Maintenance Due Date Last Done Comments [...] and were consensually agreed upon. Care Teams Melt Superintendant Relationship Specialty Start Date End Date Lorena Jones PA-C [address] [facility] [place] [address] PCP - General Physician Blending Technician 06/18/22 documented as of this encounter
--- OUTSIDE RECORDS SUMMARY | 2024-04-12 00:20 | External Medical Summary | Summary of Care ---
Author Name Unknown Organization [facility] Address [address] [place] [address] Phone [phone] Care Team Providers Care Senior Care Provider Name Role Phone Lorena Jones PA-C Primary Care Provider +1 -[phone] Reason for Visit * Reason Onset Date Comments Referral 10/13/2023 Benlysta Encounter Details Date Type Department Care Team (Late st Contact Info) Description 10/13/2023 Telephone Rheumatology [facility] [address] [address] Ankur Amezquita PA[place] [address] Referral (Benlysta) Allergies Active Allergy Reactions Criticality [...] Dyspnea. 1 g 06/13/2021 Active Saline Nasal [place] 0.65 % Nasal Solution (Deep Sea Nasal [place])Indications:Ot algia,Dysfunction of eustachian tube,Chronic rhinitis INSTILL 2 [...] 11/21/2011 08/29/2016 Overview: bmi= 48.42 11/21/11 terminal operator current use of ant icoagulant therapy [...] Rushing OSA - 11/09/2023 3:30 PM EDT [facility] - Benefits Investigation Response A benefits investigation has been completed for Benlysta. Patient: Rosemary Nguyen Deductible/cost information: Patient will have cost for Benlysta until she meets her $8050 Out of Pocket. Once met she will be covered with an authorization on file. Authorization will be sent once final orders are received. J0490 Benlysta 1200 mgs $1248.00 S9379 Pump or [place] Supplies $13.00 S9374 Hydration $11.00 J1100 Dexamethasone 8 mgs $0.20 J1200 Diphenhydramine 50 mgs $0.16 J0171 Epi .3 mgs $0.45 70353 Nursing up to 2 hours $18.90 81399 each additional hour $8.45 Please note: This is an estimate that was completed when [facility] submitted a test claim to the patient's insurance. It is not reflective of the final cost and is subject to change based on the authorization received. * Telephone Encounter - Papa Rios RP - 11/09/2023 8:16 AM EDT [facility] HOME INFUSION SERVICES REQUEST FORM - Benefits Investigation Medication Information: Medication: Belimumab (Benlysta) - Maintenance - 10mg/kg every 4 weeks Diagnosis: SLE Next Scheduled Infusion Date: Due now Does patient qualify for copay assistance? No Please perform a benefits investigation to determine if [facility] can service patient. Response to be sent back to: DARSHANA PHARMACIST REFILL POOL/CLASS [[id number]] Papa Rios, Pharm. D., [facility] Clinical Pharmacist 11/09/2023,8:17 AM * [...] ready to schedule, [place] [address]. Thanks! * Telephone Encounter - Lorene So CPhT - 10/22/2023 8:37 AM EDT Rheumatology Referral: Infusions or Clinic Administered Medications (CAM) Infusion Approved, New Supportive Care Plan (NSCP) submitted, no action needed Thank you, Lorene Samaniego [facility] Toggle Press Folder And Feeder III [facility] Pharmacy Services ([facility]PS) 10/22/2023,8:37 AM * Telephone Encounter - Cici Carmona RP - 10/20/2023 10:04 AM EDT Called patient again. No answer LMOM advised patient to contact estimates at [phone] opt 4. * Telephone Encounter - Cici Carmona RPh - 10/16/2023 3:50 PM EDT Called patient to discuss message from [facility]. No answer. LMOM * Telephone Encounter - [...] 2:59 PM EDT Order received for benlysta. [place] plan built and routed for signature. Waiting for auth. Candido: when auth is back- is benlysta available or would it need to be ordered? * Telephone Encounter - Ankur Amezquita PA-C - 10/13/2023 12:34 PM EDT Restart Benlysta since labs obtained. [facility] at [facility] to [facility] documented in this encounter Plan of Treatment Upcoming Encounters Date Type Department Care Team (Late st Contact Info) Description 04/14/2024 10:30 AM EST Office Visit Rheumatology [address] [place] [address] Ankur Amezquita PA-C [facility] [place] [address] Health Maintenance Due Date Last Done Comments [...] were consensually agreed upon. Care Teams Senior Care Provider Relationship Specialty Start Date End Date Lorena Jones PA-C [address] [facility] [place] [address] PCP - General Physician Blood Bank Coordinator 06/18/22 documented as of this encounter
--- OUTSIDE RECORDS SUMMARY | 2024-04-12 00:20 | External Medical Summary | Summary of Care ---
Author Name Unknown Organization [facility] Address [address] [place] [address] Phone [phone] Care Team Providers Care Reclamation Furnace Operator Name Role Phone Lorena Jones PA-C Primary Care Provider +1 -[phone] Reason for Visit * Reason Onset Date Comments Forms Request 10/27/2023 Hum[employer] requestin g home infusion Encounter Details Date Type Department Care Team (Late st Contact Info) Description 10/27/2023 Telephone Rheumatology [facility] [address] [place] [address] Ankur Amezquita PA-C [address] [place] [address] Forms Request ([employer] requesting home infu... Allergies Active Allergy Reactions Criticality Noted Date Comments Amlodipine Besylate Itching,Rash 03/01/2010 Itchy, rash Doxycycline Monohydrate Itching,Rash 03/01/2010 Itchy, rash Heparin 04/19/2019 Bacitracin-Polymyxin B Itching,Rash 03/01/2010 Itchy, rash Kdc:Pork Allergy Itching,Rash 03/01/2010 Itchy, rash Tetracycline 04/19/2019 Tetracycline Base Itching,Rash 03/01/2010 Itchy, rash Vancomycin 04/19/2019 documented as of this encounter (statuses as of 11/06/2023) Medications Medication Sig Dispensed Refills Start Date [...] Dyspnea. 1 g 06/13/2021 Active Saline Nasal [place] 0.65 % Nasal Solution (Deep Sea Nasal [place])Indications:Ot algia,Dysfunction of eustachian tube,Chronic rhinitis INSTILL 2 [...] as of this encounter (statuses as of 11/06/2023) Active Problems Problem Noted Date Diagnosed Date [...] as of this encounter (statuses as of 11/06/2023) Resolved Problems Problem Noted Date Diagnosed Date [...] 40) 11/21/2011 08/29/2016 Overview: bmi= 48.42 11/21/11 [facility] current use of ant icoagulant therapy 11/21/2011 08/29/2016 Overview: ICD-10 update of inactive term Cellulitis, leg 11/21/2011 10/09/2015 Dermatitis 11/21/2011 02/26/2015 Systemic lupus erythematosus 07/15/2005 11/21/2011 Ulcer of lower limb 11/27/2004 02/27/20 15 [facility] current use of ant icoagulant therapy 09/19/2004 [...] as of this encounter (statuses as of 11/06/2023) Immunizations Name Administration Dates Next Due Pneumococcal [...] Oquendo OSA - 11/05/2023 10:04 AM EDT [place] - Patient Related Communication Reason for Call: Prior auth/approval of non-DMARD (Drug Safety Coordinator): Pt called in stating that her insurance reached out stating that they would rather her have infusion at home. Pt states that she is fine with either however if she could have it done at home, that would be ideal. Please contact pt at [phone] best after lunch. ALINA Richards * Telephone [...] 1:57 PM EDT Received a fax from [employer] requesting a home infusion for Benlysta. documented in this encounter Plan of Treatment Upcoming Encounters Date Type Department Care Team (Late st Contact Info) Description 04/14/2024 10:30 AM EST Office Visit Rheumatology [place] [address] [facility] [address] Ankru Amezquita PA-C [facility] [employer] [address] Health Maintenance Due Date Last Done Comments COVID-19 Vaccine (#1) 1972 Hepatitis B (1 of 3 - 19+ 3-dose series) 1986 Zoster Vaccines (1 of 2) 1986 Cologuard 2012 Fecal Occult Blood Test 2012 Sigmoidoscopy 2012 Depression Monitoring 06/18/2023 06/18/2022 DTaP,Tdap,and Td Vaccines (2 - Td or Tdap) 10/01/2023 09/30/2013 Colonoscopy 02/01/2024 01/31/2014, 01/31/2014 Colorectal Cancer Screening [...] PPSV23 or PCV20) 2032 08/06/2021, 03/06/2020, 05/11/2000 Influenza Vaccine (FLU shot) Completed , 01/25/2020, 04/20/2017, Additional history exists GARDASIL-HPV IMMUNIZATION SERIES Aged Out No longer [...] were consensually agreed upon. Care Teams Reclamation Furnace Operator Relationship Specialty Start Date End Date Lorena Jones PA-C [address] [place] [address] PCP - General Physician Virtual Assistant 06/18/22 documented as of this encounter
--- OUTSIDE RECORDS SUMMARY | 2024-04-12 00:20 | External Medical Summary | Summary of Care ---
Author Name Unknown Organization [facility] Address [address] [place] [address] Phone [phone] Care Team Providers Care Ironing Pleater Name Role Phone Lorena Jones PA-C Primary Care Provider +1 [phone] Reason for Visit * Reason Onset Date Comments Medication Pre-auth 10/13/2023 Benlysta Encounter Details Date Type Department Care Team (Late st Contact Info) Description 10/13/2023 Telephone Rheumatology [facility] [address] [address] Ankur Amezquita PA-C [address] [place] [address] Medication Pre-auth (Benlysta) Allergies Active Allergy Reactions Criticality Noted [...] Dyspnea. 1 g 06/13/2021 Active Saline Nasal [place] 0.65 % Nasal Solution (Deep Sea Nasal [place])Indications:Ot algia,Dysfunction of eustachian tube,Chronic rhinitis INSTILL 2 [...] 11/21/2011 08/29/2016 Overview: bmi= 48.42 11/21/11 terminal manager current use of ant icoagulant therapy 11/21/2011 08/29/2016 Overview: ICD-10 update of inactive term Cellulitis, leg 11/21/2011 10/09/2015 Dermatitis 11/21/2011 02/26/2015 Systemic lupus erythematosus 07/15/2005 11/21/2011 Ulcer of lower limb 11/27/2004 02/27/20 15 terminal manager current use of ant icoagulant therapy 09/19/2004 [...] ready to [place], [place] [address]. Thanks! * Telephone Encounter - Lorene So CPhT - 10/22/2023 8:37 AM EDT Rheumatology Referral: Infusions or Clinic Administered Medications (CAM) Infusion Approved, New Supportive Care Plan (NSCP) submitted, no action needed Thank you, Lorene Samaniego [facility] Staff Services Manager III Centralized Clinical Pharmacy Services (CCPS) 10/22/2023,8:37 AM * Telephone Encounter - Cici Carmona RPh - 10/20/2023 10:04 AM EDT Called patient again. No answer LMOM advised patient to contact estimates at [phone] opt 4. * Telephone Encounter - Cici Carmona RPh - 10/16/2023 3:50 PM EDT Called patient to discuss message from [facility]. No answer. LMOM * Telephone [...] 2:59 PM EDT Order received for benlysta. [place] plan built and routed for signature. Waiting for auth. Candido: when auth is back- is benlysta available or would it need to be ordered? * Telephone Encounter - Ankur Amezquita PA-C - 10/13/2023 12:34 PM EDT Restart Benlysta since labs obtained. Last infusion done three months ago at [facility] Transition to [facility] documented in this encounter Plan of Treatment Upcoming Encounters Date Type Department Care Team (Late st Contact Info) Description 04/14/2024 10:30 AM EST Office Visit Rheumatology [facility] [address] [place] [address] Ankur Amezquita PA-C [address] [place] [address] Health Maintenance Due Date Last Done Comments [...] as of this encounter Visit Diagnoses Diagnosis Other forms of systemic lupus erythematosus, unspecified organ involvement status (HCC)- Primary documented [...] and were consensually agreed upon. Care Teams Ironing Pleater Relationship Specialty Start Date End Date Lorena Jones PA-C [address] [place] [address] PCP - General Physician Ppa Teacher 06/18/22 documented as of this encounter
--- OUTSIDE RECORDS SUMMARY | 2024-04-12 00:20 | External Medical Summary | Summary of Care ---
Author Name Unknown Organization [facility] Address [address] [place] [address] Phone [phone] Care Team Providers Care Human Factors Engineer Name Role Phone Lorena Jones PA-C Primary Care Provider +1 [phone] Reason for Visit * Reason Onset Date Comments Forms Request 10/27/2023 [employer] requestin g home infusion Encounter Details Date Type Department Care Team (Late st Contact Info) Description 10/27/2023 Telephone Rheumatology [facility] [address] [place] [address] Ankur Amezquita PA-C [address] [place] [address] Forms Request ([employer] requesting home infu... Allergies Active Allergy Reactions Criticality Noted Date Comments Amlodipine Besylate Itching,Rash 03/01/2010 Itchy, rash Doxycycline Monohydrate Itching,Rash 03/01/2010 Itchy, rash Heparin 04/19/2019 Bacitracin-Polymyxin B Itching,Rash 03/01/2010 Itchy, rash Kdc:Pork Allergy Itching,Rash 03/01/2010 Itchy, rash Tetracycline 04/19/2019 Tetracycline Base Itching,Rash 03/01/2010 Itchy, rash Vancomycin 04/19/2019 documented as of this encounter (statuses as of 11/05/2023) Medications Medication Sig Dispensed Refills Start Date [...] Dyspnea. 1 g 06/13/2021 Active Saline Nasal [place] 0.65 % Nasal Solution (Deep Sea Nasal [place])Indications:Ot algia,Dysfunction of eustachian tube,Chronic rhinitis INSTILL 2 [...] as of this encounter (statuses as of 11/05/2023) Active Problems Problem Noted Date Diagnosed Date [...] as of this encounter (statuses as of 11/05/2023) Resolved Problems Problem Noted Date Diagnosed Date [...] 40) 11/21/2011 08/29/2016 Overview: bmi= 48.42 11/21/11 skilled nursing current use of ant icoagulant therapy 11/21/2011 08/29/2016 Overview: ICD-10 update of inactive term Cellulitis, leg 11/21/2011 10/09/2015 Dermatitis 11/21/2011 02/26/2015 Systemic lupus erythematosus 07/15/2005 11/21/2011 Ulcer of lower limb 11/27/2004 02/27/20 15 skilled nursing current use of ant icoagulant therapy 09/19/2004 [...] as of this encounter (statuses as of 11/05/2023) Immunizations Name Administration Dates Next Due Pneumococcal [...] Oquendo OSA - 11/05/2023 10:04 AM EDT [place] - Patient Related Communication Reason for Call: Prior auth/approval of non-DMARD (Career Development Consultant): Pt called in stating that her insurance reached out stating that they would rather her have infusion at home. Pt states that she is fine with either however if she could have it done at home, that would be ideal. Please contact pt at [phone] best after lunch. ALINA Richards * Telephone [...] 1:57 PM EDT Received a fax from [employer] requesting a home infusion for Benlysta. documented in this encounter Plan of Treatment Upcoming Encounters Date Type Department Care Team (Late st Contact Info) Description 04/14/2024 10:30 AM EST Office Visit Rheumatology [facility] [address] [place] [address] Ankur Amezquita PA-C [address] [place] [address] Health Maintenance Due Date Last Done Comments [...] and were consensually agreed upon. Care Teams Human Factors Engineer Relationship Specialty Start Date End Date Lorena Jones PA-C [address] [facility] [place] [address] PCP - General Physician Outside Solar Sales Consultant 06/18/22 documented as of this encounter
--- OUTSIDE RECORDS SUMMARY | 2024-04-12 00:20 | External Medical Summary | Summary of Care ---
Author Name Unknown Organization [facility] Address [address] [place] [address] Phone [phone] Care Team Providers Care Polysom Tech Name Role Phone Lorena Jones PA-C Primary Care Provider [phone] [phone] Reason for Visit * Reason Onset Date Comments Medication Pre-auth 10/13/2023 Benlysta Encounter Details Date Type Department Care Team (Late st Contact Info) Description 10/13/2023 Telephone Rheumatology [facility] [address] [place] [address] Ankur Amezquita PA-C [address] [place] [address] Medication Pre-auth (Benlysta) Allergies Active Allergy Reactions [...] Dyspnea. 1 g 06/13/2021 Active Saline Nasal [place] 0.65 % Nasal Solution (Deep Sea Nasal [place])Indications:Ot algia,Dysfunction of eustachian tube,Chronic rhinitis INSTILL 2 [...] ready to [place], [place] [phone]. Thanks! * Telephone Encounter - Lorene So CPhT - 10/22/2023 8:37 AM EDT Rheumatology Referral: Infusions or Clinic Administered Medications (CAM) Infusion Approved, New Supportive Care Plan (NSCP) submitted, no action needed Thank you, Lorene Samaniego [facility] Crepe Maker III Centralized Clinical Pharmacy Services (CCPS) 10/22/2023,8:37 AM * Telephone Encounter - Cici Carmona RP - 10/20/2023 10:04 AM EDT Called patient again. No answer LMOM advised patient to contact estimates at [phone] opt 4. * Telephone Encounter - Cici [...] 2:59 PM EDT Order received for benlysta. [place] plan built and routed for signature. Waiting for rutheKndy Rey: when auth is back- is benlysta available or would it need to be ordered? * Telephone Encounter - Ankur Amezquita PA-C - 10/13/2023 12:34 PM EDT Restart Benlysta since labs obtained. Last infusion done three months ago at [facility] to [facility] documented in this encounter Plan of Treatment Upcoming Encounters Date Type Department Care Team (Late st Contact Info) Description 04/14/2024 10:30 AM EST Office Visit Rheumatology [place] [id number] [place] [address] Ankur Amezquita PA-C [address] [place] [address] Health Maintenance Due Date Last Done Comments [...] and were consensually agreed upon. Care Teams Polysom Tech Relationship Specialty Start Date End Date Lorena Jones PA-C [address] [place] [address] PCP - General Physician Commercial Production Editor 06/18/22 documented as of this encounter
--- OUTSIDE RECORDS SUMMARY | 2024-04-12 00:20 | External Medical Summary | Summary of Care ---
Author Name Unknown Organization [facility] Address [address] [place] [address] Phone [phone] Care Team Providers Care Health Psychologist Name Role Phone Lorena Jones PA-C Primary Care Provider [phone] [phone] Reason for Visit * Reason Onset Date Comments Medication Pre-auth 10/13/2023 Benlysta Encounter Details Date Type Department Care Team (Late st Contact Info) Description 10/13/2023 Telephone Rheumatology [facility] [address] [place] [address] Ankur Amezquita PA-C [address] [place] [address] Medication Pre-auth (Benlysta) Allergies Active Allergy Reactions [...] Dyspnea. 1 g 06/13/2021 Active Saline Nasal [place] 0.65 % Nasal Solution (Deep Sea Nasal [place])Indications:Ot algia,Dysfunction of eustachian tube,Chronic rhinitis INSTILL 2 [...] 40) 11/21/2011 08/29/2016 Overview: bmi= 48.42 11/21/11 adjunct faculty for medical terminology current use of ant icoagulant therapy 11/21/2011 08/29/2016 Overview: ICD-10 update of inactive term Cellulitis, leg 11/21/2011 10/09/2015 Dermatitis 11/21/2011 02/26/2015 Systemic lupus erythematosus 07/15/2005 11/21/2011 Ulcer of lower limb 11/27/2004 02/27/20 15 adjunct faculty for medical terminology current use of ant icoagulant therapy 09/19/2004 [...] ready to schedule, [place] [address]. Thanks! * Telephone Encounter - Lorene So CPhT - 10/22/2023 8:37 AM EDT Rheumatology Referral: Infusions or Clinic Administered Medications (CAM) Infusion Approved, New Supportive Care Plan (NSCP) submitted, no action needed Thank you, Lorene Samaniego [facility] Social Media Executive III Centralized Clinical Pharmacy Services (CCPS) 10/22/2023,8:37 AM * Telephone Encounter - Cici Carmona RPh - 10/20/2023 10:04 AM EDT Called patient again. No answer LMOM advised patient to contact estimates at [phone] opt 4. * Telephone Encounter - Cici Carmona RPh - 10/16/2023 3:50 PM EDT Called patient to discuss message from [facility]. No answer. LMOM * Telephone Encounter - Carissa Larson RN - 10/16/2023 7:[address] [facility] reviewed, but unable to determine estimated copay. Rheum: please advise if/ when patient is ready to be scheduled? * Telephone Encounter - Carissa Larson RN - 10/14/2023 12:07 PM EDT Referral entered, waiting for PFC review. * Telephone Encounter - Carissa Larson RN - 10/13/2023 2:59 PM EDT Order received for benlysta. [place] plan built and routed for signature. Waiting for auth. Candido: when auth is back- is benlysta available or would it need to be ordered? * Telephone Encounter - Ankur Amezquita PA-C - 10/13/2023 12:34 PM EDT Restart Benlysta since labs obtained. Last infusion done three months ago at [facility] Transition to [facility] documented in this encounter Plan of Treatment Upcoming Encounters Date Type Department Care Team (Late st Contact Info) Description 04/14/2024 10:30 AM EST Office Visit Rheumatology [address] [place] [address] Ankur Amezquita PA-C [facility] [place] [address] Health Maintenance Due Date Last Done Comments [...] and were consensually agreed upon. Care Teams Health Psychologist Relationship Specialty Start Date End Date Lorena Jones PA-C [address] [place] [address] [address] PCP - General Physician Asparagus Cutter 06/18/22 documented as of this encounter
--- OUTSIDE RECORDS SUMMARY | 2024-04-12 00:20 | External Medical Summary | Summary of Care ---
Author Name Unknown Organization [facility] Address [address] [place] [address] Phone [phone] Care Team Providers Care Orthopedic Tech Name Role Phone Lorena Jones PA-C Primary Care Provider [phone] [phone] Reason for Visit * Reason Onset Date Comments Medication Pre-auth 10/13/2023 Benlysta Encounter Details Date Type Department Care Team (Late st Contact Info) Description 10/13/2023 Telephone Rheumatology [facility] [address] [place] [address] Ankur Amezquita PA-C [address] [place] [address] Medication Pre-auth (Benlysta) Allergies Active Allergy Reactions [...] Dyspnea. 1 g 06/13/2021 Active Saline Nasal [place] 0.65 % Nasal Solution (Deep Sea Nasal [place])Indications:Ot algia,Dysfunction of eustachian tube,Chronic rhinitis INSTILL 2 [...] 40) 11/21/2011 08/29/2016 Overview: bmi= 48.42 11/21/11 carton filler current use of ant icoagulant therapy 11/21/2011 08/29/2016 Overview: ICD-10 update of inactive term Cellulitis, leg 11/21/2011 10/09/2015 Dermatitis 11/21/2011 02/26/2015 Systemic lupus erythematosus 07/15/2005 11/21/2011 Ulcer of lower limb 11/27/2004 02/27/20 15 carton filler current use of ant icoagulant therapy 09/19/2004 [...] ready [place], [place] [address]. Thanks! * Telephone Encounter - Lorene So CPhT - 10/22/2023 8:37 AM EDT Rheumatology Referral: Infusions or Clinic Administered Medications (CAM) Infusion Approved, New Supportive Care Plan (NSCP) submitted, no action needed Thank you, Lorene Samaniego [facility] Gauge Operator III Centralized Clinical Pharmacy Services (CCPS) 10/22/2023,8:37 AM * Telephone Encounter - Cici Carmona RP - 10/20/2023 10:04 AM EDT Called patient again. No answer LMOM advised patient to contact estimates at [phone] opt 4. * Telephone Encounter - Cici [...] 2:59 PM EDT Order received for benlysta. [place] plan built and routed for signature. Waiting for ruthKendy Rey: when auth is back- is benlysta available or would it need to be ordered? * Telephone Encounter - Ankur Amezquita PA-C - 10/13/2023 12:34 PM EDT Restart Benlysta since labs obtained. Last infusion done three months ago at [facility] Transition to [facility] documented in this encounter Plan of Treatment Upcoming Encounters Date Type Department Care Team (Late st Contact Info) Description 04/14/2024 10:30 AM EST Office Visit Rheumatology [place] [address] [place] [address] Ankur Amezquita PA-C [address] [place] [address] Health Maintenance Due Date Last Done Comments [...] and were consensually agreed upon. Care Teams Orthopedic Tech Relationship Specialty Start Date End Date Lorena Jones PA-C [address] [place] [address] [address] PCP - General Physician Pocketed Spring Assembler 06/18/22 documented as of this encounter
--- OUTSIDE RECORDS SUMMARY | 2024-04-12 00:20 | External Medical Summary | Summary of Care ---
Author Name Unknown Organization [facility] Address [address] [place] [address] Phone [phone] Care Team Providers Care Vehicle Service Agent Name Role Phone Lorena Jones PA-C Primary Care Provider [phone] [phone] Reason for Visit * Reason Onset Date Comments Forms Request 10/27/2023 [employer] requestin g home infusion Encounter Details Date Type Department Care Team (Late st Contact Info) Description 10/27/[address] [facility] [address] [place] [address] Ankur Amezquita PA-C [address] [place] [address] Forms Request ([employer] requesting home infu... Allergies [...] Dyspnea. 1 g 06/13/2021 Active Saline Nasal [place] 0.65 % Nasal Solution (Deep Sea Nasal [place])Indications:Ot algia,Dysfunction of eustachian tube,Chronic rhinitis INSTILL 2 [...] Oquendo OSA - 11/05/2023 10:04 AM EDT [place] - Patient Related Communication Reason for Call: Prior auth/approval of non-DMARD (Stock Pitcher): Pt called in stating that her insurance reached out stating that they would rather her have infusion at home. Pt states that she is fine with either however if she could have it done at home, that would be ideal. Please contact pt at [phone] best after lunch. ALINA Richards * Telephone [...] PM EDT Received a fax from [facility] requesting a home infusion for Benlysta. documented in this encounter Plan of Treatment Upcoming Encounters Date Type Department Care Team (Late st Contact Info) Description 04/14/2024 10:30 AM EST Office Visit Rheumatology [facility] [address] [place] [address] Ankur Amezquita PA-C [address] [place] [address] Health Maintenance Due Date Last Done Comments [...] and were consensually agreed upon. Care Teams Vehicle Service Agent Relationship Specialty Start Date End Date Lorena Jones PA-C [address] [facility] [place] [address] PCP - General Physician Blasting Clay Miner 06/18/22 documented as of this encounter
--- OUTSIDE RECORDS SUMMARY | 2024-04-12 00:21 | External Medical Summary | Summary of Care ---
Author Name Unknown Organization [facility] Address [address] [place] [address] Phone [phone] Care Team Providers Care Glass Cleaner Name Role Phone Lorena Jones PA-C Primary Care Provider +1 -[phone] Reason for Visit * Reason Onset Date Comments Medication Pre-auth 10/13/2023 Encounter Details Date Type Department Care Team (Late st Contact Info) Description 10/13/2023 Telephone Rheumatology [facility] [address] [address] Ankur [place] [address] Medication Pre-auth Allergies Active Allergy Reactions Criticality [...] Dyspnea. 1 g 06/13/2021 Active Saline Nasal [place] 0.65 % Nasal Solution (Deep Sea Nasal [place])Indications:Ot algia,Dysfunction of eustachian tube,Chronic rhinitis INSTILL 2 [...] ready to [place], [place] [address]. Thanks! * Telephone Encounter - Lorene So CPhT - 10/22/2023 8:37 AM EDT Rheumatology Referral: Infusions or Clinic Administered Medications (CAM) Infusion Approved, New Supportive Care Plan (NSCP) submitted, no action needed Thank you, Lorene Samaniego [facility] Hydropulper III Centralized Clinical Pharmacy Services (CCPS) 10/22/2023,8:37 AM * Telephone Encounter - Cici Carmona [facility] - 10/20/2023 10:04 AM EDT Called patient again. No answer LMOM advised patient to contact estimates at [phone] opt 4. * Telephone Encounter - Cici Carmona RP - 10/16/2023 3:50 PM EDT Called patient to discuss message from [facility]. No answer. LMOM * Telephone Encounter - [...] 2:59 PM EDT Order received for benlysta. [place] plan built and routed for signature. Waiting for auth. Rey: when auth is back- is benlysta available or would it need to be ordered? * Telephone Encounter - Ankur Amezquita PA-C - 10/13/2023 12:34 PM EDT Restart Benlysta since labs obtained. Last infusion done three months ago at [facility] Transition to [facility] documented in this encounter Plan of Treatment Upcoming Encounters Date Type Department Care Team (Late st Contact Info) Description 04/14/2024 10:30 AM EST Office Visit Rheumatology [place] [address] [place] [address] Ankur Amezquita PA-C [facility] [address] [place] [address] Health Maintenance Due Date Last Done Comments [...] and were consensually agreed upon. Care Teams Glass Cleaner Relationship Specialty Start Date End Date Lorena Jones PA-C [address] [facility] [place] [address] PCP - General Physician Metrology Engineer 06/18/22 documented as of this encounter
--- OUTSIDE RECORDS SUMMARY | 2024-04-12 00:21 | External Medical Summary | Summary of Care ---
Author Name Unknown Organization [facility] Address [address] [place] [address] Phone [phone] Care Team Providers Care Salad Bar Clerk Name Role Phone Lorena Jones PA-C Primary Care Provider [phone] [phone] Reason for Visit * Reason Onset Date Comments Forms Request 10/27/2023 [employer] requestin g home infusion Encounter Details Date Type Department Care Team (Late st Contact Info) Description 10/27/2023 Telephone Rheumatology [facility] [address] [place] [address] Ankur Amezquita PA-C [address] [place] [address] Forms Request ([employer] requesting home infu... Allergies Active Allergy Reactions Criticality Noted Date Comments Amlodipine Besylate Itching,Rash 03/01/2010 Itchy, rash Doxycycline Monohydrate Itching,Rash 03/01/2010 Itchy, rash Heparin 04/19/2019 Bacitracin-Polymyxin B Itching,Rash 03/01/2010 Itchy, rash Kdc:Pork Allergy Itching,Rash 03/01/2010 Itchy, rash Tetracycline 04/19/2019 Tetracycline Base Itching,Rash 03/01/2010 Itchy, rash Vancomycin 04/19/2019 documented as of this encounter (statuses as of 11/02/2023) Medications Medication Sig Dispensed Refills Start Date [...] Dyspnea. 1 g 06/13/2021 Active Saline Nasal [place] 0.65 % Nasal Solution (Deep Sea Nasal [place])Indications:Ot algia,Dysfunction of eustachian tube,Chronic rhinitis INSTILL 2 [...] as of this encounter (statuses as of 11/02/2023) Active Problems Problem Noted Date Diagnosed Date [...] as of this encounter (statuses as of 11/02/2023) Resolved Problems Problem Noted Date Diagnosed Date [...] Ulcer of lower limb 11/27/2004 02/27/20 15 custodial current use of ant icoagulant therapy 09/19/2004 [...] as of this encounter (statuses as of 11/02/2023) Immunizations Name Administration Dates Next Due Pneumococcal [...] 1:57 PM EDT Received a fax from [employer] requesting a home infusion for Benlysta. documented in this encounter Plan of Treatment Upcoming Encounters Date Type Department Care Team (Late st Contact Info) Description 04/14/2024 10:30 AM EST Office Visit Rheumatology [place] [address] [place] [address] Ankur Amezquita PA-C [address] [place] [address] Health Maintenance Due Date Last Done Comments [...] and were consensually agreed upon. Care Teams Salad Bar Clerk Relationship Specialty Start Date End Date Lorena Jones PA-C [address] [address] PCP - General Physician Addiction Treatment Counselor 06/18/22 documented as of this encounter
--- OUTSIDE RECORDS SUMMARY | 2024-04-12 00:21 | External Medical Summary | Summary of Care ---
Author Name Unknown Organization [facility] Address [address] [place] [address] Phone [phone] Care Team Providers Care Process Treater Name Role Phone Lorena Jones PA-C Primary Care Provider [phone] Reason for Visit * Reason Onset Date Comments Medication Pre-auth 10/13/2023 Encounter Details Date Type Department Care Team (Late st Contact Info) Description 10/13/2023 Telephone Rheumatology [facility] [address] [place] [address] Ankur Amezquita PA-C [email or web address] [address] Medication Pre-auth Allergies Active Allergy Reactions Criticality Noted Date Comments Amlodipine Besylate Itching,Rash 03/01/2010 Itchy, rash Doxycycline Monohydrate Itching,Rash 03/01/2010 Itchy, rash Heparin 04/19/2019 Bacitracin-Polymyxin B Itching,Rash 03/01/2010 Itchy, rash Kdc:Pork Allergy Itching,Rash 03/01/2010 Itchy, rash Tetracycline 04/19/2019 Tetracycline Base Itching,Rash 03/01/2010 Itchy, rash Vancomycin 04/19/2019 documented as of this encounter (statuses as of 10/16/2023) Medications Medication Sig Dispensed Refills Start Date [...] Dyspnea. 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 Never true 06/18/2022 Sex and Gender Information Value Date Recorded [...] 2:59 PM EDT Order received for benlysta. [place] plan built and routed for signature. Waiting for authKendy Rey: when auth is back- is benlysta available or would it need to be ordered? * Telephone Encounter - Ankur Amezquita PA-C - 10/13/2023 12:34 PM EDT Restart Benlysta since labs obtained. Last infusion done three months ago at [facility] Transition to [facility] documented in this encounter Plan of Treatment Upcoming Encounters Date Type Department Care Team (Late st Contact Info) Description 04/14/2024 10:30 AM EST Office Visit Rheumatology [facility] [address] [place] [address] Ankur Amezquita PA-C [email or web address] [address] [place] [address] Health Maintenance Due Date Last Done Comments COVID-19 Vaccine (#1) 1972 Hepatitis B (1 of 3 - 19+ 3-dose series) 1986 Zoster Vaccines (1 of 2) 1986 Cologuard 2012 Fecal Occult Blood Test 2012 Sigmoidoscopy 2012 DTaP,Tdap,and Td Vaccines (2 - Td or [...] and were consensually agreed upon. Care Teams Process Treater Relationship Specialty Start Date End Date Lorena Jones PA-C [address] [facility] [place] [address] PCP - General Physician Gold Stamper 06/18/22 documented as of this encounter
--- OUTSIDE RECORDS SUMMARY | 2024-04-12 00:21 | External Medical Summary | Summary of Care ---
Author Name Unknown Organization [facility] Address [address] [place] [address] Phone [phone] Care Team Providers Care Bladder Blower Name Role Phone Lorena Jones PA-C Primary Care Provider [phone] Reason for Visit * Reason Onset Date Comments Medication Pre-auth 10/13/2023 Encounter Details Date Type Department Care Team (Late st Contact Info) Description 10/13/2023 Telephone Rheumatology [facility] [address] [address] Ankur [place] [address] Medication Pre-auth Allergies Active Allergy Reactions Criticality Noted Date Comments Amlodipine Besylate Itching,Rash 03/01/2010 Itchy, rash Doxycycline Monohydrate Itching,Rash 03/01/2010 Itchy, rash Heparin 04/19/2019 Bacitracin-Polymyxin B Itching,Rash 03/01/2010 Itchy, rash Kdc:Pork Allergy Itching,Rash 03/01/2010 Itchy, rash Tetracycline 04/19/2019 Tetracycline Base Itching,Rash 03/01/2010 Itchy, rash Vancomycin 04/19/2019 documented as of this encounter (statuses as of 10/20/2023) Medications Medication Sig Dispensed Refills Start Date [...] Dyspnea. 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 * Telephone Encounter - Cici Carmona RPh - 10/16/2023 3:50 PM EDT Called patient to discuss message from [facility]. No answer. LMOM * Telephone Encounter - [...] 2:59 PM EDT Order received for benlysta. [place] plan built and routed for signature. Waiting for auth. Candido: when auth is back- is benlysta available or would it need to be ordered? * Telephone Encounter - Ankur Amezquita PA-C - 10/13/2023 12:34 PM EDT Restart Benlysta since labs obtained. Last infusion done three months ago at [facility] documented in this encounter Plan of Treatment Upcoming Encounters Date Type Department Care Team (Late st Contact Info) Description 04/14/2024 10:30 AM EST Office Visit Rheumatology [address] [place], [place] [address] Ankur Amezquita PA-C [facility] [employer] [place] [address] Health Maintenance Due Date Last Done Comments [...] and were consensually agreed upon. Care Teams Bladder Blower Relationship Specialty Start Date End Date Lorena Jones PA-C [address] [facility] [place] [address] PCP - General Physician Griddle Attendant 06/18/22 documented as of this encounter
--- OUTSIDE RECORDS SUMMARY | 2024-04-12 00:21 | External Medical Summary | Summary of Care ---
Author Name Unknown Organization [facility] Address [address] [place] [address] Phone [phone] Care Team Providers Care Retail Pharmacy Manager Name Role Phone Lorena Jones PA-C Primary Care Provider [phone] Reason for Visit * Reason Onset Date Comments Medication Pre-auth 10/13/2023 Encounter Details Date Type Department Care Team (Late st Contact Info) Description 10/13/2023 Telephone Rheumatology [facility] [address] [place] [address] Ankur Amezquita [place] [address] Medication Pre-auth Allergies Active Allergy Reactions Criticality [...] Dyspnea. 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 [place] plan built and routed for signature. Waiting for authKendy Rey: when auth is back- is benlysta available or would it need to be ordered? * Telephone Encounter - Ankur Amezquita PA-C - 10/13/2023 12:34 PM EDT Restart Benlysta since labs obtained. Last infusion done three months [facility] Transition to [facility] documented in this encounter Plan of Treatment Upcoming Encounters Date Type Department Care Team (Late st Contact Info) Description 04/14/2024 10:30 AM EST Office Visit Rheumatology [place] [id number] [place] [address] Ankur Amezquita PA-C [facility] [place] [address] Health Maintenance Due Date Last Done Comments [...] and were consensually agreed upon. Care Teams Retail Pharmacy Manager Relationship Specialty Start Date End Date Lorena Jones PA-C [address] [place] [address] PCP - General Physician Digital Hardware Design Engineer 06/18/22 documented as of this encounter
[2024-04-12] MEDS: KETOROLAC TROMETHAMINE 15 MG/ML VIAL IV ONE (00:33)
[2024-04-12] MEDS: PIPERACILLIN/TAZOBACTAM 4.5 GM/100 ML BAG IV ONE (01:50)
[2024-04-12] MEDS: hydrALAZINE HCL 20 MG/ML VIAL IV PRN (01:53)
--- NOTE | 2024-04-12 02:07 | CT Scan Report ---
Exam(s): CT FACIAL With Contrast IV Amt: 91 ML OPTIRAY 320 EXAM: CT Head and Maxillofacial With Intravenous Contrast CLINICAL HISTORY: Reason for exam: swelling. TECHNIQUE: Axial computed tomography images of the head/brain and face with intravenous contrast. CTDI is 14.91 mGy and DLP is 288.1 mGy-cm. Automated exposure control was utilized for the study. A dose lowering technique was utilized adhering to the principles of ALARA. CONTRAST: Patient received 91 ML OPTIRAY 320 of IV contrast COMPARISON: Prior CT scan of the facial bones from September 15, 2011. FINDINGS: Brain: Unremarkable. No hemorrhage. No edema. Normal enhancement. Ventricles: Unremarkable. No ventriculomegaly. Bones/joints: No acute fracture. Extensive dental caries with periapical lucencies about tooth #2, 3, 5, 10, 11, 12, 18 concerning for periapical abscesses. There is a critical spinal canal stenosis at C5-6. Soft tissues: There is a large periosteal phlegmon adjacent to the right mandible with inflammation of the adjacent soft tissues. Prominent cervical lymph nodes. Prominent lingual tonsils. Sinuses: Unremarkable as visualized. No acute sinusitis. Mastoid air cells: Unremarkable as visualized. No mastoid effusion. Orbits: Unremarkable as visualized. IMPRESSION: Extensive dental caries with periapical lucencies about tooth #2, 3, 5, 10, 11, 12 and 18 with large inflammatory phlegmon adjacent to the right mandible. Recommend dental consult. Critical spinal canal stenosis at C5-6. Recommend MRI of the cervical spine to evaluate for myelopathy. Electronically signed by: Carmen Fraser MD 04/12/24 02:06 AM
--- NOTE | 2024-04-12 02:10 | CT Scan Report ---
Exam(s): CT HEAD Without Contrast EXAM: CT Head Without Intravenous Contrast CLINICAL HISTORY: Reason for exam: lincoln, josenasim. TECHNIQUE: Axial computed tomography images of the head/brain without intravenous contrast. CTDI is 62.75 mGy and DLP is 961.59 mGy-cm. Automated exposure control was utilized for the study. A dose lowering technique was utilized adhering to the principles of ALARA. COMPARISON: Prior head CT from September 15, 2011. FINDINGS: Brain: There is a remote ischemic injury of the right frontal lobe and left occipital lobe with encephalomalacia and gliosis. No hemorrhage. No mild to moderate nonspecific white matter changes. No edema. Ventricles: Unremarkable. No ventriculomegaly. Bones/joints: Unremarkable. No acute fracture. Soft tissues: Unremarkable. Sinuses: Chronic left ethmoid and frontal sinusitis. No acute sinusitis. Mastoid air cells: Unremarkable as visualized. No mastoid effusion. IMPRESSION: No evidence of acute intracranial pathology. Electronically signed by: Carmen Fraser MD 04/12/24 02:09 AM
[2024-04-12] MEDS: carvediloL 3.125 MG TAB PO SCH (04:59)
[2024-04-12 07:36] LABS: Hemoglobin 13.7 g/dl (12.0-16.0); Mean Corpuscular Hgb Conc 33.4 g/dL (32.0-36.0); Mean Corpuscular Volume 83.8 fL (80.0-100.0); Mean Platelet Volume 9.4 fL (9.4-12.4); Platelet Count 243 K/uL (130-400); RDW Coefficient of Variation 13.8 % (11.5-14.5); RDW Standard Deviation 42.5 fL (36.4-46.3); Red Blood Count 4.89 M/uL (4.20-5.40); White Blood Count 10.84 K/ul (4.8-10.8)
[2024-04-12 07:56] LABS: BUN Creatinine Ratio 14.8 (10-20); Calcium 9.7 mg/dl (8.6-10.3); Creatinine Clr Calc Pharmacy 105.2 ml/min; Magnesium 1.9 mg/dl (1.7-2.4); Potassium 3.8 mmol/L (3.5-5.1)
[2024-04-12 08:03] LABS: Basophils # (auto) 0.02 K/uL (0.00-0.20); Basophils % (auto) 0.2 %; Immature Granulocytes # (auto) 0.15 K/uL (0.01-0.20); Immature Granulocytes % (auto) 1.4 %; Lymphocytes # (auto) 0.48 K/uL (1.20-3.40); Lymphocytes % (auto) 4.4 %; Monocytes # (auto) 0.15 K/uL (0.11-0.59); Monocytes % (auto) 1.4 %; Neutrophils # (auto) 10.04 K/uL (1.40-6.50); Neutrophils % (auto) 92.6 %
--- NOTE | 2024-04-12 08:23 | Cardiology Consultation ---
Date of Consultation April 12, 2024 Assessment & Plan (1) Chest pain: Plan 58 yo woman presenting with chest discomfort Hx of SLE/thrombophilia (Protein S Def) Troponin - flat + Significant HTN No evidence of Pericarditis on EKG ECHO is pending Events Overnight: * 8 beat run of NSVT Plans: * ECHO -ordered and pending * EKG - no evidence of pericarditis or active ischemia * Suspect Chest Pain may be secondary to high demands from markedly elevated SBP * No recurrent chest pain since SBP has trended down * Check ESR, CRP, [place], Complement Levels for SL E activity/flare * Check UA for Proteinuria * LDL 85; recheck LDL * Start Crestor 20 mg po per day * Continue DOAC (hx of PE + Protein S def) * Goal SBP 120 mmHg * Continue Losartan 100 mg po per day * Continue Toprol XL 25 mg po BID * Continue Imdur - increase to 30 mg po per day * STOP HCTZ * Start Chlorthalindone 25 mg po per day * Start Aldactone 25 mg po per day * Revisit SBP management after those initial changes * May need Procardia XL 30 mg po per day to reach goal * K+ goal 4.5-5 * Kdur 60 meq po x 1 * Mag goal >2 * MagOxide 400 mg po per day * Right facial swelling - question dental abscess - overall poor dentition - ABX * Healing LE ulcerations - may need evaluation of LE vasculature as an outpt * Potential Coronary CTA as an Outpt at [facility] History of Present Illness Reason for Consultation: Exertional Chest Pain Requesting Physician: Jacinto Paul Attending Physician: Jarod Lucio DO History of Present Illness 58 yo woman presenting with complaints of Left-Sided Chest Pain * Awoke with chest pain * Worse with ambulation * Presented to wound care center for bilateral LE ulcerations * Noted to have SBP 200 mmHg * Referred to ED for evaluation * + EDUARDO - patient is on DOAC * HEAD CT - no bleeding Hx of: * SLE * Thrombophilia/PE * Protein S Deficiency * HTN * DM * Hyperlipidemia Allergies Allergy/AdvReac Type Severity Reaction Status Date / Time heparin Allergy Severe HIT R/O Verified 04/11/24 11:45 from last hospital admission - rather was dx w/ ITP vancomycin Allergy Intermediate RASH Verified 04/11/24 11:45 doxycycline Allergy Mild Rash Verified 04/11/24 11:45 polymyxin B Allergy Mild Rash Verified 04/11/24 11:45 Pork/Porcine Containing Allergy Mild Rash Verified 04/11/24 11:45 Products tetracycline Allergy Mild RASH, Verified 04/11/24 11:45 PRURITIS amlodipine Allergy Unknown Unknown Verified 04/11/24 11:45 bacitracin Allergy Unknown Unknown Verified 04/11/24 11:45 sulfamethoxazole AdvReac Intermediate precipitates Verified 04/11/24 11:45 [From Bactrim] lupus per Rheumatology trimethoprim [From Bactrim] AdvReac Intermediate precipitates Verified 04/11/24 11:45 lupus per Rheumatology Home Medications Medication Instructions Recorded Confirmed Type acetaminophen 500 mg tablet 1,000 mg PO Q8H PRN Pain 01/05/18 04/11/24 History (Tylenol Extra Strength) apixaban 5 mg tablet (Eliquis) 5 mg PO BID 01/05/18 04/11/24 History calcium 500 mg (as 1 tab PO QAM 01/05/18 04/11/24 History carbonate)-vitamin D3 5 mcg (200 unit) tablet (Os-Marco A 500 + D3) calcium carbonate (Calcium 500) 1,000 mg PO QAM 01/05/18 04/11/24 History fluticasone propionate 50 2 sprays intranasal BID 01/05/18 04/11/24 History mcg/actuation nasal spray,suspension (Flonase Allergy Relief) folic acid 1 mg tablet 1 mg PO QAM 01/05/18 04/11/24 History hydroxychloroquine 200 mg tablet 400 mg PO PM 01/05/18 04/11/24 History (Plaquenil) multivitamin with minerals 1 cap PO QAM 01/05/18 04/11/24 History prednisone 5 mg tablet 5 mg PO QAM 01/05/18 04/11/24 History sertraline 100 mg tablet (Zoloft) 100 mg PO QAM 01/05/18 04/11/24 History sodium chloride 0.65 % nasal spray 2 sprays intranasal QPM 01/05/18 04/11/24 History aerosol (Saline Nasal) trazodone 50 mg tablet 100 mg PO HS 01/05/18 04/11/24 History losartan 100 mg tablet 100 mg PO QAM 12/11/18 04/11/24 History furosemide 20 mg tablet 40 mg (2 x 20 mg) PO QAM #0 tabs 02/28/20 04/11/24 Rx metoprolol succinate 25 mg 25 mg PO BID #0 tabs 02/28/20 04/11/24 Rx tablet,extended release 24 hr ferrous sulfate 325 mg (65 mg 325 mg PO BIDM #60 tabs 08/20/20 04/11/24 Rx iron) tablet,delayed release omeprazole 20 mg capsule,delayed 20 mg PO DAILY 08/26/21 04/11/24 History release belimumab 400 mg intravenous 1,200 mg IV UD 10/08/21 04/11/24 History solution (Benlysta) Patient History Medical History (Updated 04/12/24 @ 09:43 by Edmond Hoskins MD) Pancytopenia Protein S deficiency Pulmonary embolism Ovarian cyst Hyperlipidemia Chaim filter in place Diabetes DVT (deep venous thrombosis) HTN (hypertension) Surgical History History of inferior vena caval filter placement History of dilatation and curettage H/O tooth extraction S/P hysterectomy S/P cholecystectomy S/P section H/O exploratory laparotomy H/O hernia repair Family History Mother Colorectal cancer Pulmonary embolism Grandfather Cancer Social History Smoking Status: Never smoker Second Hand Exposure: No; Do You Dip or Chew Tobacco: No; Hx Alcohol Use: No Hx Substance Use: No Preferred Language: Maltese Communication Ability: Effective 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 Beliefs That Will Affect Care: None marital status: Single Current Living Situation: Family Current Living Situation Comment: lives at home with daughter Other Information That Helps Us Care for You: No Feels Safe at Home: Yes Safety Concerns: Feels Safe At This Time Assistive Devices: None Review of Systems Review of Systems: All systems reviewed & are unremarkable except as noted in HPI & below Physical Exam Physical Exam: Obese Poor dentition Swollen right jaw No elevation in JVP S1S2 2/6 systolic murmur CTA B at apices; crackles at bases Abdomen - obese + BS No C/C/E Bilateral LE ulcerations (appear to have a dry base); bandaged Results & Data Vital Signs (Past 12 Hours) Vital Signs Temp Pulse Pulse Resp BP Pulse Ox O2 Del Method 04/12/24 03:29 36.7 C 70 18 186/89 H 95 Room Air 04/12/24 00:46 67 04/11/24 23:01 36.7 C 70 18 183/89 H 94 Room Air Laboratory Results Cardiac Enzymes 04/11/24 04/11/24 Range/Units 12:39 22:38 AST 20 (13-39) U/L Troponin I High Sens 11.1 15.1 H D (0-14) pg/ml CBC 04/11/24 04/12/24 Range/Units 12:39 07:09 WBC 8.61 10.84 H (4.8-10.8) K/ul RBC 4.97 4.89 (4.20-5.40) M/uL Hgb 13.4 13.7 (12.0-16.0) g/dl Hct 41.8 41.0 (37.0-47.0) % Plt Count 255 243 (130-400) K/uL Neut # (Auto) 6.36 10.04 H (1.40-6.50) K/uL Lymph # (Auto) 1.45 0.48 L (1.20-3.40) K/uL Webb # (Auto) 0.62 H 0.15 (0.11-0.59) K/uL Eos # (Auto) 0.06 0.00 (0.00-0.50) K/uL Baso # (Auto) 0.04 0.02 (0.00-0.20) K/uL Comprehensive Metabolic Panel 04/11/24 04/12/24 Range/Units 12:39 07:09 Sodium 138 139 (136-145) mmol/L Potassium 3.5 3.8 (3.5-5.1) mmol/L Chloride 107 107 (98-107) mmol/L Carbon Dioxide 23 25 (21-32) mmol/L BUN 10 12 (6-23) mg/dl Creatinine 0.70 0.81 (0.6-1.2) mg/dl Glucose 104 H 109 H (70-99(Fasting)) mg/dl Calcium 9.2 9.7 (8.6-10.3) mg/dl AST 20 (13-39) U/L ALT 19 (7-52) U/L Alkaline Phosphatase 70 (34-104) U/L Total Protein 7.1 (6.0-8.3) gm/dl Albumin 4.4 (3.4-5.0) gm/dl Intake and Output 04/11/24 04/12/24 04/12/24 22:59 06:59 14:59 Intake Total 100 / 200 100 / 200 Balance 100 / 200 100 / 200 Intake: IV 100 / 100 Piperacillin/Tazobactam 4.5 gm 100 / 100 In 100 ml @ 200 mls/hr IV NOW ONE Rx#:[id number] Oral 100 / 100 Other: Other Intake Source NPO Weight 126.1 kg 119 kg Weight Measurement Method Built [facility] Bedscale [facility] Diagnostic Findings EK04/11/2024 Sinus bradycardia Minimal voltage criteria for LVH, may be normal variant Cannot rule out Anterior infarct (cited on or before 02-Oct-2018) Abnormal ECG When compared with ECG of 14-Jun-2023 18:56, Vent. rate has decreased by 44 bpm QRS axis Shifted right Questionable change in initial forces of Anterolateral leads T wave inversion now evident in Inferior leads Confirmed by Grover Ackerman ([id number]) on 04/11/2024 2:08:38 PM Low voltage, PRWP ECHOcardiogram: LVEF 40-45% + Mild MAC No major valvular disease Medications Administered Current Inpatient Medications Acetaminophen (Acetaminophen 500 Mg Tab) 1,000 mg PO Q8H PRN PRN Reason: Pain Stop: 05/11/24 16:26 Last Admin: 04/11/24 17:13 Dose: 1,000 mg Apixaban (Apixaban 5 Mg Tablet) 5 mg PO BID ART Stop: 05/11/24 20:59 Last Admin: 04/11/24 20:03 Dose: 5 mg Carbamide Peroxide (Carbamide Peroxide 6.5% 15 Ml Btl) 3 drops OTR BID ART Stop: 04/15/24 20:59 Last Admin: 04/11/24 20:03 Dose: 3 drops Ciprofloxacin/Hydrocortisone (Cipro 0.2%/Hydrocortisone 1% Otic Susp 10 Ml Btl) 3 drops OTR BID ART Stop: 05/11/24 16:44 Last Admin: 04/11/24 20:03 Dose: 3 drops Ferrous Sulfate (Ferrous Sulfate 325 Mg Tab) 325 mg PO BIDM [facility] Stop: 05/11/24 16:59 Last Admin: 04/11/24 17:15 Dose: 325 mg Folic Acid (Folic Acid 1 Mg Tab) [facility] Stop: 05/12/24 08:59 Hydralazine HCl (Hydralazine Hcl 20 Mg/Ml Vial) 5 mg IV Q6H PRN PRN Reason: sbp > 160 Stop: 05/11/24 14:14 Last Admin: 04/12/24 01:53 Dose: 5 mg Hydrochlorothiazide (Hydrochlorothiazide 25 Mg Tab) 12.5 mg [facility] Stop: 05/12/24 08:59 Hydroxychloroquine Sulfate (Hydroxychloroquine Sulfate 200 Mg Tab) 400 mg PO PM [facility] Stop: 05/11/24 20:59 Last Admin: 04/11/24 20:05 Dose: 400 mg Ampicillin Sodium/Sulbactam Sodium (Unasyn) 3,000 mg in 100 mls @ 200 mls/hr IV Q6H [facility] Stop: 04/22/24 09:59 Magnesium Sulfate/Dextrose (Magnesium Sulfate / D5w) 1 gm in 100 mls @ 50 mls/hr IV ONE ONE Stop: 04/12/24 09:03 Isosorbide Mononitrate (Isosorbide Webb Extended Rel 30 Mg Tabcr) 15 mg PO [facility] Stop: 05/12/24 08:59 Losartan Potassium (Losartan Potassium 50 Mg Tab) 100 mg [facility] Stop: 05/12/24 08:59 Metoprolol Succinate (Metoprolol Succ 25mg Ext Rel Tab) 25 mg PO BID [facility] Stop: 05/11/24 20:59 Last Admin: 04/11/24 20:05 Dose: 25 mg Morphine Sulfate (Morphine Sulfate 4 Mg/Ml 1 Ml Carp\Vial) 4 mg IV Q4H PRN PRN Reason: Pain Stop: 04/25/24 19:45 Oxycodone HCl (Oxycodone Hcl Ir 5 Mg Tab (Immediate Release)) 5 - 10 mg PO QID PRN PRN Reason: Pain Stop: 04/25/24 19:45 Last Admin: 04/11/24 23:05 Dose: 10 mg Pantoprazole Sodium (Pantoprazole 40 Mg Tab) 40 mg PO DAILY [facility] Stop: 05/12/24 08:59 Potassium Chloride (Potassium Chloride Crtab 20 Meq Tabcr) 20 meq PO ONE ONE Stop: 04/12/24 09:01 Prednisone (Prednisone 5 Mg Tab) 5 mg [facility] Stop: 05/12/24 08:59 Sertraline HCl (Sertraline Hcl 100 Mg Tablet) 100 mg PO [facility] Stop: 05/12/24 08:59 Trazodone HCl (Trazodone Hcl 100 Mg Tab) 100 mg PO [facility] Stop: 05/11/24 20:59 Last Admin: 04/11/24 20:06 Dose: 100 mg (1) Chest pain Chest pain type: unspecified Qualified Code(s): R07.9 - Chest pain, unspecified
[2024-04-12] MEDS: MAGNESIUM SULFATE / D5W 1 GM/100 ML BAG IV ONE (08:29)
[2024-04-12] MEDS: POTASSIUM CHLORIDE CRTAB 20 MEQ TABCR PO STA ×2 (08:29→11:13)
[2024-04-12] MEDS: POTASSIUM CHLORIDE CRTAB 20 MEQ TABCR PO ONE (08:30)
[2024-04-12] MEDS: FOLIC ACID 1 MG TAB PO SCH (08:31)
[2024-04-12] MEDS: PANTOprazole 40 MG TAB PO SCH (08:31)
[2024-04-12] MEDS: predniSONE 5 MG TAB PO SCH (08:33)
[2024-04-12] MEDS: SERTRALINE HCL 100 MG TABLET PO SCH (08:33)
[2024-04-12] MEDS: LOSARTAN POTASSIUM 50 MG TAB PO SCH (08:33)
[2024-04-12] MEDS ORDERED: FUROSEMIDE 40 MG TAB PO SCH (09:00)
[2024-04-12] MEDS: hydroCHLOROthiazide 25 MG TAB PO SCH (10:02)
[2024-04-12] MEDS: ISOSORBIDE MONO EXTENDED REL 30 MG TABCR PO SCH (10:02)
[2024-04-12] MEDS: AMPICILLIN/SULBACTAM SOD 3,000 MG/100 ML BAG IV SCH (10:39)
[2024-04-12 11:03] LABS: C Reactive Protein 3.45 mg/dl (0-0.5)
[2024-04-12] MEDS: ROSUVASTATIN CALCIUM 20 MG TAB PO SCH (13:42)
[2024-04-12] MEDS: MAGNESIUM OXIDE 400 MG TAB PO SCH (13:42)
--- NOTE | 2024-04-12 14:08 | Electrocardiogram Report ---
Test Reason : Blood Pressure : */* mmHG Vent. Rate : 68 BPM Atrial Rate : 68 BPM P-R Int : 156 ms QRS Dur : 114 ms QT Int : 452 ms P-R-T Axes : 56 57 36 degrees QTcB Int : 480 ms Normal sinus rhythm Low voltage QRS Cannot rule out Anterior infarct (cited on or before 02-Oct-2018) Nonspecific T wave abnormality Abnormal ECG When compared with ECG of 11-Apr-2024 12:08, Nonspecific T wave abnormality has replaced inverted T waves in Inferior leads T wave amplitude has decreased in Lateral leads Confirmed by Grover Ackerman ([id number]) on 04/12/2024 2:07:47 PM Referred By: REFERRED SELF Confirmed By: Grover Ackerman
[2024-04-12 14:24] LABS: Appearance Urine Clear (Clear); Bacteria Urine Automated None Seen (None Seen); Bilirubin Urine Negative (Negative); Blood Urine Trace (Negative); Cast Urine Automated 0-2 /lpf (0-2); Color Urine Yellow; Epithelial Cell Urine Auto 0-2 /hpf (0-2); Glucose Urine UA Negative (Negative); Ketones Urine 1+ (Negative); Leukocyte Esterase Urine Negative (Negative); Nitrite Urine Negative (Negative); Protein Urine Trace (Negative); Specific Gravity Urine 1.037 (1.000-1.030); Urobilinogen Urine Negative (Negative); WBC Urine Automated 0-5 /hpf (0-5)
--- NOTE | 2024-04-12 15:07 | Magnetic Resonance Report ---
MR cervical spine wo con HISTORY: 58 years-old Female abn ct Acute facial pain with dental caries. Degenerative changes of th e cervical spine is incidentally seen on CT maxillofacial from yesterday. COMPARISON: CT maxillofacial April 11, 2024. TECHNIQUE: Multiplanar and multisequence MRI of the cervical spine was obtained without IV contrast. A dose lowering technique was used consistent with the principals of ELANA. FINDINGS: Partially empty sella. Normal signal within the brainstem, cervical and imaged thoracic spinal cord. There is no acute fracture, subluxation, endplate erosions or significant marrow edema. No epidural f luid collections. Motion degradation limits the study. C2-C3: Mild intervertebral disc space narrowing and uncovertebral hypertrophy. Tiny posterior annular disc bulge with idhv-rm-ngtyowgn facet arthrosis. Central canal and right neuroforamen are patent. M inimal left foraminal narrowing. C3-C4: Mild intervertebral disc space narrowing and uncovertebral hypertrophy. Tiny posterior annular disc bulge with mild facet arthrosis. Central canal and right neural foramen are patent. Mild left f oraminal narrowing. C4-C5: Mild intervertebral disc space narrowing with uncovertebral hypertrophy and small circumferent ial annular disc bulge. Moderate facet arthrosis. Flattening of the ventral thecal sac without signif icant central canal stenosis. Msia-bl-vtwcugqk right with mild left foraminal stenosis. C5-C6: Moderate intervertebral disc space narrowing. Circumferential disc osteophyte complex with mod erate facet arthrosis. Flattening of the ventral thecal sac. Minimal central canal stenosis with AP d imension of the thecal sac measuring 8 mm. Moderate bilateral foraminal stenosis. C6-C7: Moderate intervertebral disc space narrowing. Small circumferential disc osteophyte complex wi th mild facet arthrosis. Central canal is patent. Kwlm-pq-byszckhu bilateral foraminal narrowing. C7-T1: Mild intervertebral disc space narrowing. Posterior disc osteophyte complex is eccentric to th e left lateral recess. Dotv-ic-lznlpasi facet arthrosis. Minimal central canal stenosis with AP dimen tatianna of the thecal sac measuring 9 mm. Right neural foramen is patent. Mild left foraminal narrowing. IMPRESSION: 1. Motion degraded exam. 2. Normal signal of the cervical spinal cord. No high-grade central canal stenosis. 3. Discogenic degeneration and facet arthrosis as above with multilevel neural foraminal narrowing, m oderate bilaterally at C5-C6. ACT 112: Negative or not required by law. The above report was generated using voice recognition software. It may contain grammatical, syntax o r spelling errors. Dictated: 04/12/2024 2:15 PM Transcribed: 04/12/2024 3:00 PM Yong [id number] [email or web address] Electronically signed by: Tristan Andrew M.D. 04/12/2024 3:05 PM
--- NOTE | 2024-04-12 18:50 | Oral/Maxillofacial Consult ---
Date of Consultation April 12, 2024 Assessment & Plan (1) Facial infection: (2) Swelling of submandibular region: (3) Abscess of pulp of tooth: History of Present Illness Attending Physician: Teddy Singletary MD History of Present Illness Oral Maxillofacial Surgery Exam Present Complaint: I have pain/swelling/drainage from my teeth. Symptoms have been ongoing for a while. Now swelling right upper and lower face Oral Exam: Finding-grossly infected upper and lower teeth, tender gingival tissue with deep pocket formation. Teeth are grossly infected and decayed and removal is clinical indicated. Imaging: The CT was reviewed, there were no abnormal findings other then the grossly infected and decayed teeth The TMJ are well positioned and no evidence of bony pathology. The sinus, supporting bone all WNL The following teeth are grossly infected/decayed # 2,3,5,6,7,8,9,10,11 , 18 and 29 Soft tissue: The is swelling in the right submandibular gland space and mucobuccal fold, also swelling right cheek area from the following teeth 2,3,5,6,7,8,9,10,11 and 29 The floor of the mouth, tongue, hard/soft palate, posterior pharyngeal area all with in normal limits, no pathology or abnormal findings noted. Oral Care: Overall oral care is very poor Occlusion: Class I TMJ exam: No pop, clicking, pain, good ROM, No history of TMJ injury or dysfunction Periodontal exam: grossly infected gingival tissue with evidence of advanced periodontal pathology. Head/Neck exam: Neck is supple, FROM, Able to extend and flex neck w/o difficulty, no masses, no abnormalities, no airway issues Treatment Plan: Set up with general anesthesia in hospital due to complexity of the procedure Last Eliquis was Thursday evening-given the poor state of her oral condition, grossly infected carious and fractured teeth should allow 48 to completly reverse the effects of the Eliquis. I will plan surgery to drain the multiply infections and extract 2,3,5,6,7,8,9,10,11, 18 and 29 I reviewed the treatment plan and consent with the patient Understanding was expressed. Time was given for questions regarding the surgery, risks and post op care. Discussed alternative to treatment--procedure as planned, Do not do surgery The following teeth are decayed and fractured and removal is indicated DESI:2 ,3,5,6,7,8,9,10,11, 18 and 29 I will plan to leave a few teeth to maintain occlusion and allow her to chew foods better. She will need further extractions of all the upper teeth in the future and get fitted for full dentures. On the lower she will need a scaling and root planing and a partial denture Risks discussed: Bleeding,Pain,swelling,infection, dry socket, delayed healing, nerve injury to face,lips,tongue,chin area which could be permanent (rare). TMJ, jaw stiffness, change in bite (rare), ear pain (referred). Sinus problems like fistula or infection. Need to leave a small root fragment in place to avoid injury to nerve or sinus. Relationship of teeth to nerve/sinus and risk of jaw fracture. Need for further extraction and dental care in the future Surgery to be set up in the OR afternoon Extract 2,3,5,6,7,8,9,10,11, 18 and 29--Please note additional extractions will be determined at the time of surgery Allergies Allergy/AdvReac Type Severity Reaction Status Date / Time heparin Allergy Severe HIT R/O Verified 04/11/24 11:45 from last hospital admission - rather was dx w/ ITP vancomycin Allergy Intermediate RASH Verified 04/11/24 11:45 doxycycline Allergy Mild Rash Verified 04/11/24 11:45 polymyxin B Allergy Mild Rash Verified 04/11/24 11:45 Pork/Porcine Containing Allergy Mild Rash Verified 04/11/24 11:45 Products tetracycline Allergy Mild RASH, Verified 04/11/24 11:45 PRURITIS amlodipine Allergy Unknown Unknown Verified 04/11/24 11:45 bacitracin Allergy Unknown Unknown Verified 04/11/24 11:45 sulfamethoxazole AdvReac Intermediate precipitates Verified 04/11/24 11:45 [From Bactrim] lupus per Rheumatology trimethoprim [From Bactrim] AdvReac Intermediate precipitates Verified 04/11/24 11:45 lupus per Rheumatology Home Medications Medication Instructions Recorded Confirmed Type acetaminophen 500 mg tablet 1,000 mg PO Q8H PRN Pain 01/05/18 04/11/24 History (Tylenol Extra Strength) apixaban 5 mg tablet (Eliquis) 5 mg PO BID 01/05/18 04/11/24 History calcium 500 mg (as 1 tab PO QAM 01/05/18 04/11/24 History carbonate)-vitamin D3 5 mcg (200 unit) tablet (Os-Marco A 500 + D3) calcium carbonate (Calcium 500) 1,000 mg PO QAM 01/05/18 04/11/24 History fluticasone propionate 50 2 sprays intranasal BID 01/05/18 04/11/24 History mcg/actuation nasal spray,suspension (Flonase Allergy Relief) folic acid 1 mg tablet 1 mg PO QAM 01/05/18 04/11/24 History hydroxychloroquine 200 mg tablet 400 mg PO PM 01/05/18 04/11/24 History (Plaquenil) multivitamin with minerals 1 cap PO QAM 01/05/18 04/11/24 History prednisone 5 mg tablet 5 mg PO QAM 01/05/18 04/11/24 History sertraline 100 mg tablet (Zoloft) 100 mg PO QAM 01/05/18 04/11/24 History sodium chloride 0.65 % nasal spray 2 sprays intranasal QPM 01/05/18 04/11/24 History aerosol (Saline Nasal) trazodone 50 mg tablet 100 mg PO HS 01/05/18 04/11/24 History losartan 100 mg tablet 100 mg PO QAM 12/11/18 04/11/24 History furosemide 20 mg tablet 40 mg (2 x 20 mg) PO QAM #0 tabs 02/28/20 04/11/24 Rx metoprolol succinate 25 mg 25 mg PO BID #0 tabs 02/28/20 04/11/24 Rx tablet,extended release 24 hr ferrous sulfate 325 mg (65 mg 325 mg PO BIDM #60 tabs 08/20/20 04/11/24 Rx iron) tablet,delayed release omeprazole 20 mg capsule,delayed 20 mg PO DAILY 08/26/21 04/11/24 History release belimumab 400 mg intravenous 1,200 mg IV UD 10/08/21 04/11/24 History solution (Benlysta) Patient History Medical History Pancytopenia Protein S deficiency Pulmonary embolism Ovarian cyst Hyperlipidemia Somers filter in place Diabetes DVT (deep venous thrombosis) HTN (hypertension) Surgical History History of inferior vena caval filter placement History of dilatation and curettage H/O tooth extraction S/P hysterectomy S/P cholecystectomy S/P section H/O exploratory laparotomy H/O hernia repair Family History Mother Colorectal cancer Pulmonary embolism Grandfather Cancer Social History Smoking Status: Never smoker Second Hand Exposure: No; Do You Dip or Chew Tobacco: No; Hx Alcohol Use: No Hx Substance Use: No Preferred Language: Icelandic Communication Ability: Effective 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 Beliefs That Will Affect Care: None marital status: Single Current Living Situation: Family Current Living Situation Comment: lives at home with daughter Other Information That Helps Us Care for You: No Feels Safe at Home: Yes Safety Concerns: Feels Safe At This Time Assistive Devices: None Results & Data Vital Signs (Past 12 Hours) Vital Signs Temp Pulse Pulse Resp BP Pulse Ox Pulse Ox 04/12/24 16:05 36.6 C 69 17 106/54 L 98 04/12/24 15:56 98 04/12/24 11:41 36.5 C 63 18 144/78 H 96 04/12/24 08:34 37.0 C 65 19 157/86 H 97 04/12/24 08:00 71 O2 Del Method O2 Del Method 04/12/24 16:05 Room Air 04/12/24 15:56 Room Air 04/12/24 11:41 Room Air 04/12/24 08:34 Room Air 04/12/24 08:00 PG Care Time/CCT Total # of Minutes Spent Total Time Spent with Patient: Total time spent is greater than 50% in coordination of care (as documented) at patient's floor/unit and/or counseling patient: Coding Level of Care Code 18213 IN/OBS CONSULT LVL 3,45M Diagnoses Facial infection L08.9 Swelling of submandibular region R22.0; R22.1 Abscess of pulp of tooth K04.01 CPT Codes REM IMP TOOTH W MUCOPER FLP - [id number] ([id number])
[2024-04-12] MEDS: MoRPHine SULFATE 4 MG/ML 1 ML CARP\\VIAL IV PRN (21:18)
--- NOTE | 2024-04-12 23:56 | Hospitalist Progress Note ---
Date of Service April 12, 2024 Assessment & Plan (1) Lupus: (2) Venous ulcers of both lower extremities: (3) DVT prophylaxis: (4) SLE (systemic lupus erythematosus): (5) Leg wound, left: (6) Leg wound, right: (7) Protein C deficiency: (8) Chronic combined systolic and diastolic CHF (congestive heart failure): (9) HTN (hypertension): (10) CKD (chronic kidney disease), stage III: (11) Hypercoagulable state: Plan per admitting service notes with addendum: Assessment and plan: Left-sided chest pain Hypertensive urgency: Chest x-ray unremarkable, initial troponin negative EKG with T wave inversions in anterior leads, currently chest pain-free 04/12 BP uncontrolled added Imdur, Chlorthalidone and Aldactone troponin flat, echo ordered Cardilogist consulted Odontogenic Infection IMPRESSION: Extensive dental caries with periapical lucencies about tooth #2, 3, 5, 10, 11, 12 and 18 with large inflammatory phlegmon adjacent to the right mandible. Recommend dental consult. Dr. Guthrie consulted plan for dental extraction under general anesthesia on Hx of lupus/protein C deficiency: On outpatient infusions, continue Plaquenil/prednisone/continue Eliquis Hx acute on chronic combined systolic and diastolic CHF: Appears euvolemic on exam, continue home Lasix, strict I&O, daily weights Hx of chronic bilateral venous stasis ulcers lower extremities: Follows with the wound care center, consult wound care nursing while inpatient Full code DVT prophylaxis: Eliquis Admission and Anticipated Discharge Date Admission Date: April 11, 2024 Subjective ff up for hypertension, etc seen resting in bed, comfortable feels better overall chest pain resolved no chest pain, dyspnea, palpitations, dizziness facial pain also improving no other symptoms Review of Systems Review of Systems: all noted and negative except for above Physical Exam Physical Exam: General- oriented x 3, not in distress, speaks in sentences with no effort or accessory muscle use Face- no facial edema Eyes- anicteric Neck- no JVD Lungs- clear breath sounds bilaterally, no rales/wheezes Heart- normal rate, regular rhythm; no murmurs Abdomen- normal bowel sounds, nondistended, soft, nontender Extremities- no pretibial edema, no calf tenderness Neuro- alert, oriented x 3; no gross focal neurologic deficits Skin- warm & dry Results & Data Results & Data Vital Signs (Past 12 Hours) Vital Signs Temp Pulse Resp BP Pulse Ox Pulse Ox O2 Del Method 04/12/24 23:11 36.7 C 72 18 102/53 L 93 Room Air 04/12/24 20:48 36.8 C 63 18 165/77 H 98 Room Air 04/12/24 20:00 Room Air 04/12/24 16:05 36.6 C 69 17 106/54 L 98 Room Air 04/12/24 15:56 98 O2 Del Method 04/12/24 23:11 04/12/24 20:48 04/12/24 20:00 04/12/24 16:05 04/12/24 15:56 Room Air all noted and reviewed including below (5) Leg wound, left Encounter type: initial encounter Qualified Code(s): S81.802A - Unspecified open wound, left lower leg, initial encounter (6) Leg wound, right Encounter type: initial encounter Qualified Code(s): S81.801A - Unspecified open wound, right lower leg, initial encounter
--- NOTE | 2024-04-13 07:53 | Cardiology Progress Note ---
Date of Service April 13, 2024 Assessment & Plan (1) Chest pain: Plan 58 yo woman presenting with chest discomfort Hx of SLE/thrombophilia (Protein S Def) Troponin - flat + Significant HTN No evidence of Pericarditis on EKG ECHO reviewed - results above Events Overnight: * 8 beat run of NSVT Plans: * ECHO -reviewed - LVEF 60-65%; no major valvular abnormalities; no pericardial effusion. * EKG - no evidence of pericarditis or active ischemia * Suspect Chest Pain may be secondary to high demands from markedly elevated SBP * No recurrent chest pain since SBP has trended down * ESR 29 * CRP - 3.45 - elevated * MIKE, Complement Levels (SLE Flare eval) - Pending * UA- trace Proteinuria * LDL 85; recheck 71 * Continue Crestor 20 mg po per day * Continue DOAC (hx of PE + Protein S def) * Goal SBP 120 mmHg - SBP on 04/13/2024 is 122mmHg * Continue Losartan 100 mg po per day * Continue Toprol XL 25 mg po BID * Continue Imdur - increase to 30 mg po per day * HCTZ (OFF) * Continue Chlorthalidone 25 mg po per day * Continue Aldactone 25 mg po per day * K+ goal 4.5-5 * Kdur 60 meq po x 1 on 04/13/2024 * Mag goal >2 * MagOxide 400 mg po per day * Right facial swelling - question dental abscess - overall poor dentition - ABX * Healing LE ulcerations - may need evaluation of LE vasculature as an outpt * Troponin 11, 15. Potential Coronary CTA as an Outpt at [facility] * Cardiology Follow up * Discussed with Hospital Medicine * Please call back with any additional questions Edmond Hoskins Admission and Anticipated Discharge Date Admission Date: April 11, 2024 Subjective Events Overnight: * No events overnight * No telemetry events Subjective: * No chest pain Review of Systems Review of Systems: All systems reviewed & are unremarkable except as noted in HPI & below Physical Exam Physical Exam: Obese Poor dentition Swollen right jaw No elevation in JVP S1S2 2/6 systolic murmur CTA B at apices; crackles at bases Abdomen - obese + BS No C/C/E Bilateral LE ulcerations (appear to have a dry base); bandaged Results & Data Vital Signs (Past 12 Hours) Vital Signs Temp Pulse Pulse Resp BP Pulse Ox O2 Del Method 04/13/24 07:15 36.7 C 74 18 122/66 90 Room Air 04/13/24 03:21 36.6 C 76 20 133/65 95 Room Air 04/12/24 23:11 36.7 C 72 18 102/53 L 93 Room Air 04/12/24 21:56 73 04/12/24 20:48 36.8 C 63 18 165/77 H 98 Room Air 04/12/24 20:00 Room Air Laboratory Results CBC 04/12/24 Range/Units 07:09 Neut # (Auto) 10.04 H (1.40-6.50) K/uL Lymph # (Auto) 0.48 L (1.20-3.40) K/uL [place] # (Auto) 0.15 (0.11-0.59) K/uL Eos # (Auto) 0.00 (0.00-0.50) K/uL Baso # (Auto) 0.02 (0.00-0.20) K/uL Comprehensive Metabolic Panel 04/12/24 Range/Units 07:09 Sodium 139 (136-145) mmol/L Potassium 3.8 (3.5-5.1) mmol/L Chloride 107 (98-107) mmol/L Carbon Dioxide 25 (21-32) mmol/L BUN 12 (6-23) mg/dl Creatinine 0.81 (0.6-1.2) mg/dl Glucose 109 H (70-99(Fasting)) mg/dl Calcium 9.7 (8.6-10.3) mg/dl Intake and Output 04/12/24 04/13/24 04/13/24 22:59 06:59 14:59 Intake Total 400 / 1000 400 / 1000 Balance 400 / 1000 400 / 1000 Intake: IV 200 / 500 100 / 500 Ampicillin/Sulbactam Sod 3,000 200 / 400 100 / 400 mg In 100 ml @ 200 mls/hr IV Q6H [facility] Rx#:[id number] Oral 200 / 500 300 / 500 Other: # Unmeasured Voids 1 1 Weight 118.5 kg Weight Measurement Method Built in [facility] Diagnostic Findings ECHOcardiogram: 04-12-2024 Result reviewed LVEF 60-65% No regional WMA Mild Concentric LVH RV is normal in size and function Borderline aortic root dilation Medications Administered Current Inpatient Medications Acetaminophen (Acetaminophen 500 Mg Tab) 1,000 mg PO Q8H PRN PRN Reason: Pain Stop: 05/11/24 16:26 Last Admin: 04/11/24 17:13 Dose: 1,000 mg Apixaban (Apixaban 5 Mg Tablet) 5 mg PO BID [facility] Stop: 05/11/24 20:59 Last Admin: 04/11/24 20:03 Dose: 5 mg Carbamide Peroxide (Carbamide Peroxide 6.5% 15 Ml Btl) 3 drops OTR BID [facility] Stop: 04/15/24 20:59 Last Admin: 04/12/24 21:18 Dose: 3 drops Chlorthalidone (Chlorthalidone 25 Mg Tab) 25 mg PO QAM [facility] Stop: 05/13/24 08:59 Ciprofloxacin/Hydrocortisone (Cipro 0.2%/Hydrocortisone 1% Otic Susp 10 Ml Btl) 3 drops OTR BID [facility] Stop: 05/11/24 16:44 Last Admin: 04/12/24 21:19 Dose: 3 drops Ferrous Sulfate (Ferrous Sulfate 325 Mg Tab) 325 mg PO BIDM [facility] Stop: 05/11/24 16:59 Last Admin: 04/12/24 17:06 Dose: 325 mg Folic Acid (Folic Acid 1 Mg Tab) 1 mg PO QAM [facility] Stop: 05/12/24 08:59 Last Admin: 04/12/24 08:31 Dose: 1 mg Hydralazine HCl (Hydralazine Hcl 20 Mg/Ml Vial) 5 mg IV Q6H PRN PRN Reason: sbp > 160 Stop: 05/11/24 14:14 Last Admin: 04/12/24 01:53 Dose: 5 mg Hydroxychloroquine Sulfate (Hydroxychloroquine Sulfate 200 Mg Tab) 400 mg PO PM [facility] Stop: 05/11/24 20:59 Last Admin: 04/12/24 21:20 Dose: 400 mg Ampicillin Sodium/Sulbactam Sodium (Unasyn) 3,000 mg in 100 mls @ 200 mls/hr IV Q6H [facility] Stop: 04/22/24 09:59 Last Infusion: 04/13/24 04:57 Dose: Infused Isosorbide Mononitrate (Isosorbide [place] Extended Rel 30 Mg Tabcr) 15 mg PO QAM [facility] Stop: 05/12/24 08:59 Last Admin: 04/12/24 10:02 Dose: 15 mg Losartan Potassium (Losartan Potassium 50 Mg Tab) [address] [facility] [place] Stop: 05/12/24 08:59 Last Admin: 04/12/24 08:33 Dose: 100 mg Magnesium Oxide (Magnesium Oxide 400 Mg Tab) 400 mg PO QAM [facility] Stop: 05/12/24 10:29 Last Admin: 04/12/24 13:42 Dose: 400 mg Metoprolol Succinate (Metoprolol Succ 25mg Ext Rel Tab) 25 mg PO BID [facility] Stop: 05/11/24 20:59 Last Admin: 04/12/24 21:20 Dose: 25 mg Morphine Sulfate (Morphine Sulfate 4 Mg/Ml 1 Ml Carp\Vial) 4 mg IV Q4H PRN PRN Reason: Pain Stop: 04/25/24 19:45 Last Admin: 04/12/24 21:18 Dose: 4 mg Oxycodone HCl (Oxycodone Hcl Ir 5 Mg Tab (Immediate Release)) 5 - 10 mg PO QID PRN PRN Reason: Pain Stop: 04/25/24 19:45 Last Admin: 04/13/24 04:28 Dose: 10 mg Pantoprazole Sodium (Pantoprazole 40 Mg Tab) 40 mg PO DAILY [facility] Stop: 05/12/24 08:59 Last Admin: 04/12/24 08:31 Dose: 40 mg Prednisone (Prednisone 5 Mg Tab) [address] [facility] [place] Stop: 05/12/24 08:59 Last Admin: 04/12/24 08:33 Dose: 5 mg Rosuvastatin Calcium (Rosuvastatin Calcium 20 Mg Tab) [address] [facility] [place] Stop: 05/12/24 10:29 Last Admin: 04/12/24 13:42 Dose: 20 mg Sertraline HCl (Sertraline Hcl 100 Mg Tablet) [address] [facility] [place] Stop: 05/12/24 08:59 Last Admin: 04/12/24 08:33 Dose: 100 mg Spironolactone (Spironolactone 25 Mg Tab) [address] [facility] [place] Stop: 05/13/24 08:59 Trazodone HCl (Trazodone Hcl 100 Mg Tab) 100 mg PO HS [facility] Stop: 05/11/24 20:59 Last Admin: 04/12/24 21:21 Dose: 100 mg (1) Chest pain Chest pain type: unspecified Qualified Code(s): R07.9 - Chest pain, unspecified
[2024-04-13] MEDS: SPIRONOLACTONE 25 MG TAB PO SCH (08:10)
[2024-04-13] MEDS: CHLORTHALIDONE 25 MG TAB PO SCH (08:11)
[2024-04-13 14:18] LABS: Anti Nuclear Antibody Screen POSITIVE (NEGATIVE)
--- NOTE | 2024-04-13 15:02 | Hospitalist Progress Note ---
Date of Service April 13, 2024 Assessment & Plan (1) Hypertension, uncontrolled: (2) Mandibular abscess: (3) Abscess of pulp of tooth: (4) Venous ulcers of both lower extremities: (5) SLE (systemic lupus erythematosus): (6) Protein C deficiency: (7) Chronic combined systolic and diastolic CHF (congestive heart failure): (8) HTN (hypertension): (9) CKD (chronic kidney disease), stage III: Plan Patient admitted with chest pain and due to uncontrolled hypertension, resolved and now controlled. Continue antihypertensives as recommended by cardiology Subsequently discovered mandibular abscess with severe dental caries. Dental surgery on 04/14/2024 anticipated Patient medically maximized for anticipated surgery Patient on chronic anticoagulation for hypercoagulable state/protein C deficiency. Restart Eliquis as soon as possible postoperatively in coordination with surgeon Continue pain control Continue wound care Check labs in a.m. Admission and Anticipated Discharge Date Admission Date: April 11, 2024 Subjective Patient denies any further chest pain. Anticipating dental surgery tomorrow Physical Exam Physical Exam: Constitutional: Alert HEENT: Mucous membranes moist. Extremely poor dentition, multiple caries. Right cheek, swollen and tender Lungs: Clear to auscultation, decreased, no wheezes rales or rhonchi CV: S1-S2, regular Abdomen: Soft, nontender, nondistended Extremities: No significant edema Neuro: No focal deficits Psych: Cooperative, normal mood Results & Data Results & Data Vital Signs (Past 12 Hours) Vital Signs Temp Pulse Pulse Resp BP Pulse Ox O2 Del Method 04/13/24 11:04 37.4 C 73 18 130/71 94 Room Air 04/13/24 10:00 72 04/13/24 07:15 36.7 C 74 18 122/66 90 Room Air 04/13/24 03:21 36.6 C 76 20 133/65 95 Room Air Diagnostic Findings Reviewed imaging, laboratory and diagnostic studies. Pertinent findings as below. Lipid panel reviewed CT cervical spine no significant high-grade stenosis, some foraminal narrowing
--- NOTE | 2024-04-13 15:17 | Oral/Maxillofacial Progress Nt ---
Date of Service April 13, 2024 Assessment & Plan Admission and Anticipated Discharge Date Admission Date: April 11, 2024 Subjective OK for the surgery tomorrow afternoon. Plan is for I&D and dental extractions Consent signed and all questions answered. NPO tonight Results & Data Vital Signs (Past 12 Hours) Vital Signs Temp Pulse Pulse Resp BP Pulse Ox O2 Del Method 04/13/24 15:00 36.7 C 61 18 144/70 H 93 Room Air 04/13/24 11:04 37.4 C 73 18 130/71 94 Room Air 04/13/24 10:00 72 04/13/24 07:15 36.7 C 74 18 122/66 90 Room Air 04/13/24 03:21 36.6 C 76 20 133/65 95 Room Air PG Care Time/CCT Total # of Minutes Spent Total Time Spent with Patient: Total time spent is greater than 50% in coordination of care (as documented) at patient's floor/unit and/or counseling patient: Coding Level of Care Code None
[2024-04-14 06:02] LABS: Hematocrit (blood only) 39.2 % (37.0-47.0); Hemoglobin 12.4 g/dl (12.0-16.0); Mean Corpuscular Hemoglobin 27.3 pg (25.0-34.0); Mean Corpuscular Hgb Conc 31.6 g/dL (32.0-36.0); Mean Corpuscular Volume 86.2 fL (80.0-100.0); Mean Platelet Volume 9.4 fL (9.4-12.4); Platelet Count 236 K/uL (130-400); RDW Coefficient of Variation 14.3 % (11.5-14.5); RDW Standard Deviation 44.8 fL (36.4-46.3); Red Blood Count 4.55 M/uL (4.20-5.40); White Blood Count 7.64 K/ul (4.8-10.8)
[2024-04-14 06:19] LABS: Calcium 9.1 mg/dl (8.6-10.3); Creatinine Clr Calc Pharmacy 101.2 ml/min; Potassium 4.1 mmol/L (3.5-5.1)
[2024-04-14 08:28] LABS: ANA Pattern Cytoplasmic; ANA Pattern 2 Nuclear, Homogeneous; ANA Titer 1:40 titer; ANA Titer 2 1:40 titer
--- NOTE | 2024-04-14 13:43 | Hospitalist Progress Note ---
Date of Service April 14, 2024 Assessment & Plan (1) Hypertension, uncontrolled: (2) Mandibular abscess: (3) Abscess of pulp of tooth: (4) Venous ulcers of both lower extremities: (5) SLE (systemic lupus erythematosus): (6) Protein C deficiency: (7) Chronic combined systolic and diastolic CHF (congestive heart failure): (8) HTN (hypertension): (9) CKD (chronic kidney disease), stage III: Plan Left-sided chest pain Hypertensive urgency: Chest x-ray unremarkable, initial troponin negative EKG with T wave inversions in anterior leads, currently chest pain-free BP uncontrolled during the hospitalization added Imdur, Chlorthalidone and Aldactone as per cardiology Echo shows EF of 60 to 65% with grade 1 diastolic dysfunction with borderline aortic root dilation. Odontogenic Infection Face CT IMPRESSION: Extensive dental caries with periapical lucencies about tooth #2, 3, 5, 10, 11, 12 and 18 with large inflammatory phlegmon adjacent to the right mandible. Recommend dental consult. Dr. Guthrie consulted plan for dental extraction under general anesthesia today on ampicillin, continue Hx of lupus/protein C deficiency: On outpatient infusions, continue Plaquenil/prednisone/continue Eliquis Hx acute on chronic combined systolic and diastolic CHF: Appears euvolemic on exam, continue home Lasix, strict I&O, daily weights Hx of chronic bilateral venous stasis ulcers lower extremities: Follows with the wound care center, consult wound care nursing while inpatient Full code DVT prophylaxis: Eliquis Please note the above document was generated using voice recognition software. It may contain grammatical, syntax or spelling errors. Any formal questions or concerns about the content, text or information contained within the body of this dictation should be directly addressed to the provider for clarification Admission and Anticipated Discharge Date Admission Date: April 11, 2024 Subjective Patient seen and examined at bedside. She reports pain on her right cheek. No significant events overnight Review of Systems Review of Systems: All systems reviewed & are unremarkable except as noted in Subjective Physical Exam Physical Exam: Constitutional: Alert oriented x 3; not in distress Faceswelling present on right cheek; redness present in gingival tissue on Respiratory: normal respiratory effort, lungs clear to auscultation, no wheeze, rales, rhonchi. Normal insp/exp effort, no accessory muscle use Cardiovascular: RRR, no murmur, no edema Vessels: no JVD or carotid bruit Chest: normal inspection of chest Abdomen: normal bowel sounds, soft, nontender, no hepatosplenomegaly Musculoskeletal: no cyanosis or clubbing, extremities motor strength 5/5 Skin: no rashes, warm and dry normal turgor Neurologic: PERRL, EOMI, accommodation nl, no face palsy, no dysarthria CN's II-XI intact bilaterally and moves all extremities Psychiatric: A+Ox3, euthymic affect Results & Data Results & Data Vital Signs (Past 12 Hours) Vital Signs Temp Pulse Pulse Pulse Resp BP Pulse Ox 04/14/24 13:20 36.7 C 60 18 133/64 93 04/14/24 12:00 62 04/14/24 11:10 37.0 C 64 18 126/73 91 04/14/24 08:22 37.0 C 71 20 141/85 H 95 04/14/24 04:18 36.4 C L 61 20 139/78 96 O2 Del Method O2 Flow Rate 04/14/24 13:20 Room Air 04/14/24 12:00 04/14/24 11:10 Room Air 04/14/24 08:22 Room Air 04/14/24 04:18 Nasal Cannula 1.0
[2024-04-14] MEDS ORDERED: PROPOFOL IV EMULSION 10 MG/ML 20 ML VIAL IV ONE (13:55)
[2024-04-14] MEDS ORDERED: DEXAMETHASONE SOD INJ 4 MG/ML VIAL ONE (13:55)
[2024-04-14] MEDS ORDERED: GLYCOPYRROLATE 0.2 MG/ML VIAL ONE (13:55)
[2024-04-14] MEDS ORDERED: ONDANSETRON INJ 2 MG/ML 2 ML VIAL ONE (13:55)
[2024-04-14] MEDS ORDERED: LIDOCAINE 2% 2 ML VIAL/AMP(20MG/ML) INFIL ONE (13:55)
[2024-04-14] MEDS ORDERED: ROCURONIUM BROMIDE 10 MG/ML 5 ML VIAL IV ONE (13:55)
[2024-04-14] MEDS ORDERED: MIDAZOLAM HCL 1 MG/ML 2ML VIAL ONE (13:55)
[2024-04-14] MEDS ORDERED: fentaNYL citrate PF 100 MCG/2 ML VIAL ONE (13:55)
--- NOTE | 2024-04-14 14:27 | History & Physical Bridge Note ---
Date of Service April 14, 2024 History & Physical Bridge Note I have examined the patient, reviewed the History & Physical and in the interval since the performance of the History & Physical I have noted the following changes of clinical significance: no changes noted. OK for the I&D and extractions as planned
[2024-04-14] MEDS: BUPIVACAINE/EPINEPHRINE 0.5% 1:200,000 1.8 ML CARP ONE (15:24)
[2024-04-14] MEDS: CHLORHEXIDINE GLUCONATE 0.12% 480 ML MT ONE (15:25)
[2024-04-14] MEDS ORDERED: SUGAMMADEX SODIUM 200 MG/2 ML VIAL IV ONE (15:36)
--- NOTE | 2024-04-14 16:04 | Post Operative Brief Note ---
PG Immediate Post Op with CF Date of Surgery April 14, 2024 Pre & Post Diagnosis Operation Date: 04/14/24 14:20 Pre-Op Diagnosis: right submandibular space infection, multiple teeth carries Post-Op Diagnosis: right submandibular space infection, multiple teeth carries I identified the patient and participated in the time-out.: Yes Procedure Operation Date: 04/14/24 14:20 Actual Procedures p I&D Right submandibular space(Right) - Romeo Guthrie DMD s Extraction Teeth x10 - Romeo Guthrie DMD Surgeon Romeo Guthrie, ZACH Activities Leader none Estimated Blood Loss 5 Findings Consistent with Post-Op Diagnosis right submandibular space infection and carious/fractured teeth Specimens Specimen Description: none, per physician Anesthesia Type General Complications none Disposition Accompanied Patient To Recovery: Yes
--- NOTE | 2024-04-14 16:45 | Anesthesiology Progress Note ---
Date of Service April 14, 2024 Anesthesia Post Procedure Vital Signs Vital Signs: Temp Pulse Pulse Pulse Resp BP Pulse Ox 04/14/24 16:40 81 18 154/77 H 92 04/14/24 16:30 85 15 158/90 H 93 04/14/24 16:20 90 18 158/94 H 94 04/14/24 16:10 96 H 16 159/102 H 95 04/14/24 16:02 36.4 C L 97 H 18 141/100 H 100 04/14/24 13:20 36.7 C 60 18 133/64 93 04/14/24 12:00 62 04/14/24 11:10 37.0 C 64 18 126/73 91 04/14/24 08:22 37.0 C 71 20 141/85 H 95 04/14/24 04:18 36.4 C L 61 20 139/78 96 04/14/24 00:46 94 04/14/24 00:45 87 L 04/13/24 22:43 36.7 C 62 20 111/63 95 04/13/24 21:43 64 04/13/24 20:15 36.8 C 65 20 134/65 97 O2 Del Method O2 Flow Rate 04/14/24 16:40 Room Air 0 04/14/24 16:30 Room Air 0 04/14/24 16:20 Room Air 0 04/14/24 16:10 Room Air 0 04/14/24 16:02 Oxymask 8 04/14/24 13:20 Room Air 04/14/24 12:00 04/14/24 11:10 Room Air 04/14/24 08:22 Room Air 04/14/24 04:18 Nasal Cannula 1.0 04/14/24 00:46 Nasal Cannula 1 04/14/24 00:45 Room Air 04/13/24 22:43 Room Air 04/13/24 21:43 04/13/24 20:15 Room Air Pain Intensity Left Upper Chest: Pain Intensity: 1 Left Chest: Pain Intensity: 0 Head: Pain Intensity: 5 Transfer of Care Handoff Completed per policy Notes Mental Status: alert / awake / arousable Patient Amnestic to Procedure: Yes Nausea / Vomiting: adequately controlled Pain: adequately controlled Airway Patency, RR, SpO2: stable & adequate BP & HR: stable & adequate Hydration State: stable & adequate Anesthetic Complications: no major complications apparent and Pt Satisfied with anesthetic care
[2024-04-15 04:20] VITALS: RESP 18
[2024-04-15 06:29] LABS: BUN Creatinine Ratio 23.1 (10-20); Calcium 9.4 mg/dl (8.6-10.3); Creatinine Clr Calc Pharmacy 109.2 ml/min; Potassium 4.5 mmol/L (3.5-5.1)
[2024-04-15 07:31] LABS: Basophils # (auto) 0.01 K/uL (0.00-0.20); Basophils % (auto) 0.1 %; Hematocrit (blood only) 41.8 % (37.0-47.0); Hemoglobin 13.5 g/dl (12.0-16.0); Immature Granulocytes # (auto) 0.05 K/uL (0.01-0.20); Immature Granulocytes % (auto) 0.5 %; Lymphocytes # (auto) 0.88 K/uL (1.20-3.40); Lymphocytes % (auto) 9.6 %; Mean Corpuscular Hemoglobin 27.7 pg (25.0-34.0); Mean Corpuscular Hgb Conc 32.3 g/dL (32.0-36.0); Mean Corpuscular Volume 85.7 fL (80.0-100.0); Mean Platelet Volume 9.3 fL (9.4-12.4); Monocytes % (auto) 5.4 %; Neutrophils # (auto) 7.76 K/uL (1.40-6.50); Neutrophils % (auto) 84.4 %; Platelet Count 256 K/uL (130-400); RDW Coefficient of Variation 13.7 % (11.5-14.5); RDW Standard Deviation 42.7 fL (36.4-46.3); Red Blood Count 4.88 M/uL (4.20-5.40)
--- NOTE | 2024-04-15 08:50 | Hospitalist Progress Note ---
Date of Service April 15, 2024 Assessment & Plan (1) Hypertension, uncontrolled: (2) Mandibular abscess: (3) Abscess of pulp of tooth: (4) Venous ulcers of both lower extremities: (5) SLE (systemic lupus erythematosus): (6) Protein C deficiency: (7) Chronic combined systolic and diastolic CHF (congestive heart failure): (8) HTN (hypertension): (9) CKD (chronic kidney disease), stage III: Plan Left-sided chest pain Hypertensive urgency: Chest x-ray unremarkable, initial troponin negative EKG with T wave inversions in anterior leads, currently chest pain-free BP uncontrolled during the hospitalization added Imdur, Chlorthalidone and Aldactone as per cardiology Echo shows EF of 60 to 65% with grade 1 diastolic dysfunction with borderline aortic root dilation. Odontogenic Infection Face CT IMPRESSION: Extensive dental caries with periapical lucencies about tooth #2, 3, 5, 10, 11, 12 and 18 with large inflammatory phlegmon adjacent to the right mandible. Recommend dental consult. Dr. Guthrie consulted Status post I&D of right submandibular space with extraction of 10 teeth. Continue on Unasyn Hx of lupus/protein C deficiency: On outpatient infusions, continue Plaquenil/prednisone/continue Eliquis Hx acute on chronic combined systolic and diastolic CHF: Appears euvolemic on exam, continue home Lasix, strict I&O, daily weights Hx of chronic bilateral venous stasis ulcers lower extremities: Follows with the wound care center, consult wound care nursing while inpatient Full code DVT prophylaxis: Eliquis On hold; will resume when okay with oral surgery Please note the above document was generated using voice recognition software. It may contain grammatical, syntax or spelling errors. Any formal questions or concerns about the content, text or information contained within the body of this dictation should be directly addressed to the provider for clarification Admission and Anticipated Discharge Date Admission Date: April 11, 2024 Physical Exam 2 Physical Exam: Constitutional: Alert oriented x 3; not in distress FaceDressing in place; no overlying soakage. Respiratory: normal respiratory effort, lungs clear to auscultation, no wheeze, rales, rhonchi. Normal insp/exp effort, no accessory muscle use Cardiovascular: RRR, no murmur, no edema Vessels: no JVD or carotid bruit Chest: normal inspection of chest Abdomen: normal bowel sounds, soft, nontender, no hepatosplenomegaly Musculoskeletal: no cyanosis or clubbing, extremities motor strength 5/5 Skin: no rashes, warm and dry normal turgor Neurologic: PERRL, EOMI, accommodation nl, no face palsy, no dysarthria CN's II- XI intact bilaterally and moves all extremities Psychiatric: A+Ox3, euthymic affect Results & Data Results & Data Vital Signs (Past 12 Hours) Vital Signs Temp Pulse Pulse Resp BP BP Pulse Ox 04/15/24 07:06 50 L 04/15/24 03:00 36.6 C 55 L 18 118/73 94 04/14/24 23:02 36.7 C 80 16 138/80 94 04/14/24 23:02 72 O2 Del Method 04/15/24 07:06 04/15/24 03:00 Room Air 04/14/24 23:02 Room Air 04/14/24 23:02
--- NOTE | 2024-04-15 15:02 | Oral/Maxillofacial Progress Nt ---
Date of Service April 15, 2024 Assessment & Plan Admission and Anticipated Discharge Date Admission Date: April 11, 2024 Subjective Post Op infection evaluation 24 hours The surgical and I&D site look great! Swelling is gone and the tissue is back to normal in size and texture. No further drainage is noted. Infection has responded very well to the antibiotics, extractions and the I and D. I requested that the patient continue with soft diet and oral wound care. At this time the area is well healed and responded well to treatment, no further treatment needed may be discharged. I will follow in my office in 2 weeks OK to restart the Eliquis tomorrow AM RTC as suggested Results & Data Vital Signs (Past 12 Hours) Vital Signs Temp Pulse Pulse Resp BP Pulse Ox O2 Del Method 04/15/24 11:29 36.7 C 50 L 94/59 L 93 Room Air 04/15/24 08:00 36.7 C 52 L 123/68 95 Room Air 04/15/24 07:06 50 L 04/15/24 03:00 36.6 C 55 L 18 118/73 94 Room Air PG Care Time/CCT Total # of Minutes Spent Total Time Spent with Patient: Total time spent is greater than 50% in coordination of care (as documented) at patient's floor/unit and/or counseling patient: Coding Level of Care Code None
[2024-04-15 15:18] VITALS: TEMP 97.7; O2SAT 97
--- NOTE | 2024-04-15 15:20 | Discharge Summary ---
Date of Service April 15, 2024 Admission HPI Per Admitting Provider The patient is a 58-year-old female with a past medical history of lupus, antiphospholipid antibody syndrome, protein C deficiency, ITP, HTN, chronic venous stasis ulcers, lymphedema, CKD stage III, obesity who presented to the ED on 04/11/2024 with complaints of left-sided chest pain. Patient reports she woke up this morning at 730 and has some left-sided chest pain that worsened with exertion. She denies any radiation to her arm or jaw. She went to the wound care center to have wound care done for her bilateral lower extremity chronic venous stasis ulcers and was sent to the ER with concerns of left-sided chest pain and SBP's in the 200s. On arrival to the ED, her chest pain was improved, she received nitro and aspirin. She received a second dose of nitro in the ER. She is not hypoxic on arrival. On exam, the patient is chest pain-free, she is not short of breath. She does report some nausea and vomiting since she arrived at the hospital but denies any diarrhea, denies any recent respiratory illness, does report some right sided ear pain that she attempted to be seen for. Reports following with an outpatient tomato grader for blood pressure management. She is on chronic anticoagulation with history of antiphospholipid syndrome. On arrival to the ED, her labs are fairly unremarkable. Chest x-ray was negative. EKG showed some T wave inversions in anterior leads, initial troponin negative Reports compliance with medications at home. Patient will be admitted for further chest pain workup. Admission Exam Per Admitting Provider Constitutional: WD/WN, vitals as above Eyes: PERRL, conjunctivae normal, anicteric sclerae ENMT: external ear and nose normal, oropharynx normal (Right ear with redness and pain) Neck: trachea midline, no thyromegaly Respiratory: normal respiratory effort, lungs clear to auscultation Gastrointestinal (Abdomen): normal bowel sounds, soft, nontender, no hepatosplenomegaly Musculoskeletal: no cyanosis or clubbing, extremities motor strength 5/5 Skin: no rashes, warm and dry Neurologic: PERRL, EOMI, accommodation nl, no face palsy, no dysarthria Psychiatric: A+Ox3, euthymic affect Principal Diagnosis Left-sided chest pain Hypertensive urgency: Odontogenic Infection s/p I and D Discharge Exam Constitutional: Alert oriented x 3; not in distress Face-swelling significantly decreased compared to yesterday; Respiratory: normal respiratory effort, lungs clear to auscultation, no wheeze, rales, rhonchi. Normal insp/exp effort, no accessory muscle use Cardiovascular: RRR, no murmur, no edema Vessels: no JVD or carotid bruit Chest: normal inspection of chest Abdomen: normal bowel sounds, soft, nontender, no hepatosplenomegaly Musculoskeletal: no cyanosis or clubbing, extremities motor strength 5/5 Skin: no rashes, warm and dry normal turgor Neurologic: PERRL, EOMI, accommodation nl, no face palsy, no dysarthria CN's II- XI intact bilaterally and moves all extremities Psychiatric: A+Ox3, euthymic affect Discharge Data Allergies Allergy/AdvReac Type Severity Reaction Status Date / Time heparin Allergy Severe HIT R/O Verified 04/11/24 11:45 from last hospital admission - rather was dx w/ ITP vancomycin Allergy Intermediate RASH Verified 04/11/24 11:45 doxycycline Allergy Mild Rash Verified 04/11/24 11:45 polymyxin B Allergy Mild Rash Verified 04/11/24 11:45 Pork/Porcine Containing Allergy Mild Rash Verified 04/11/24 11:45 Products tetracycline Allergy Mild RASH, Verified 04/11/24 11:45 PRURITIS amlodipine Allergy Unknown Unknown Verified 04/11/24 11:45 bacitracin Allergy Unknown Unknown Verified 04/11/24 11:45 sulfamethoxazole AdvReac Intermediate precipitates Verified 04/11/24 11:45 [From Bactrim] lupus per Rheumatology trimethoprim [From Bactrim] AdvReac Intermediate precipitates Verified 04/11/24 11:45 lupus per Rheumatology Consultations 04/11/24 13:44 ED Decision to Admit Stat 04/11/24 15:56 Consult Cardiology Routine 04/12/24 02:12 Consult Oromaxillofacial Surgery Routine Procedures Performed Operation Date: 04/14/24 14:20 Actual Procedures p I&D Right submandibular space(Right) - Romeo Guthrie DMD s Extraction Teeth x10 - Romeo Guthrie DMD Ordered Studies 04/11/24 23:05 CT face [CT facial bones w con] Stat CT head/brain wo con Stat 04/12/24 07:35 MR cervical spine wo con Routine Hospital Course (1) Hypertension, uncontrolled: (2) Mandibular abscess: (3) Abscess of pulp of tooth: (4) Venous ulcers of both lower extremities: (5) SLE (systemic lupus erythematosus): (6) Protein C deficiency: (7) Chronic combined systolic and diastolic CHF (congestive heart failure): (8) HTN (hypertension): (9) CKD (chronic kidney disease), stage III: Plan Left-sided chest pain Hypertensive urgency: Chest x-ray unremarkable, initial troponin negative EKG with T wave inversions in anterior leads, Cardiology evaluated the patient; patient underwent echocardiogram; echo showed EF of 60 to 65% with grade 1 diastolic dysfunction with borderline aortic root dilation. Patient was started on Imdur, chlorthalidone and Aldactone. Blood pressure was overall controlled in the later part of the hospitalization. Odontogenic Infection Underwent for CT which revealed extensive dental caries with periapical lucencies in multiple teeth. Oral surgery was consulted. Patient underwent I&D of right submandibular space with extraction of 10 teeth. She was treated with Unasyn during the hospitalization and was discharged on Augmentin to complete the antibiotic course. oral surgery consulted Status post I&D of right submandibular space with extraction of 10 teeth. Continue on Unasyn Please note the above document was generated using voice recognition software. It may contain grammatical, syntax or spelling errors. Any formal questions or concerns about the content, text or information contained within the body of this dictation should be directly addressed to the provider for clarification Total Time Total Time Spent Total Time Spent (In Minutes): 45 Total Time Includes: Examination of the Patient, Discharge Planning, Medication Reconciliation, Communication With Other Providers and Other Discharge Plan Discharge Items Patient Disposition: Home - Self-Care Reason For Visit: CHEST PAIN Discharge Diagnosis: chest pain, facial abscess, fractured and infected teeth Condition on Discharge: Good Activity: Resume your previous activity Lifting: Gradually increase as tolerated Bathing: No limitations Exercise/Sports: Gradually increase as tolerated Driving/Machine Use: No limitations Weightbearing: Full weightbearing Non-emergency contact: Surgeon Call non-emergency contact if: you have any medication questions, your symptoms worsen, your temperature is above 101.5, your wound has increased redness, your wound has increased drainage and your wound pain has increased Follow-up/Referrals: Romeo Guthrie, ZACH [Physician] - Lorena Jones PA-C [Primary Care Provider] - (Date & Time 04/20/2024 10:00 AM Provider Kevin Gong MD Department [facility] [place] ) Diet: Regular, Full liquid and Clear liquid Diet Texture: Easy to Chew Diet Comment: start with clear, full dental soft Addtl Attending Provider Instructions: You were evaluated by cardiology due to the hospitalization; they recommend following medication changes; Stop taking Lasix. Start taking chlorthalidone 25 mg once a day. Start taking isosorbide mononitrate 15 mg once a day. Start taking spironolactone 25 mg once a day Start taking rosuvastatin 20 mg once a day. For pain control; can take Tylenol 500 mg every 6 hours as needed. If pain is very severe; you can take oxycodone 5 mg. Start taking Eliquis from tomorrow a.m. Follow-up with your primary care doctor and Dr. Guthrie ADDITIONAL ACTIVITY RECOMMENDATIONS: * [place] teeth after every meal. It is very important to keep your mouth clean to prevent infection. * Starting tonight rinse with the Peridex as directed then 2 x a day * it is very important to keep well hydrated, this prevents fever and possible dry socket pain SPECIAL CARE INSTRUCTIONS: *It is not uncommon that between day 2-4 that your swelling will be at its worst this is very normal, do not be alarmed. * Keep ice on the side of your face for the next 24 to 36 hours. This will help keep the swelling down. * After 36 hours, apply heat (hot water bottle or heating pad) for the next two days, as often as possible. * Tomorrow start rinsing your mouth with 1/2 teaspoon salt in 8 ounces warm water. This rinse should be used every 4-6 hours. * You may experience slight nausea. To prevent this, never take your medication on an empty stomach. If nauseated, take small sips of yari don until you feel better; then you may start on applesauce and toast. * Some swelling is common. It should gradually decrease within 4-5 days. * A certain amount of bleeding is to be expected. It is often possible to control mild oozing by placing folded gauze over the area and biting down for 30 minutes. If you are unable to control excessive bleeding, call Dr Guthrie at [phone] * You may experience some discomfort for a few days. If pain or swelling increases, Call Dr Guthrie * Return to the office for a follow up check up on April 28 at 11 am * office address--[address] phone # [phone] Pending Studies at Discharge: No Stand-Alone Forms: My [facility] [address], Smoking Cessation Medications and DC Order Prescriptions: New isosorbide mononitrate 30 mg Tablet Extended Release 24 Hr 15 mg PO QAM Qty: 30 0RF chlorthalidone 25 mg Tablet 25 mg PO QAM Qty: 30 0RF spironolactone 25 mg Tablet 25 mg PO QAM Qty: 30 0RF oxycodone 5 mg Tablet 5 mg PO DAILY PRN (Reason: pain) Qty: 10 0RF rosuvastatin 20 mg Tablet 20 mg PO QAM Qty: 30 0RF Continued acetaminophen [Tylenol Extra Strength] 500 mg tablet 1,000 mg PO Q8H PRN (Reason: Pain) apixaban [Eliquis] 5 mg tablet 5 mg PO BID calcium carbonate [Calcium 500] 500 mg calcium (1,250 mg) tablet,chewable 1,000 mg PO QAM calcium carbonate-vitamin D3 [Os-Marco A 500 + D3] 500 mg(1,250mg) -200 unit tablet 1 tab PO QAM fluticasone propionate [Flonase Allergy Relief] 50 mcg/actuation spray,suspension 2 sprays INTNAS BID folic acid 1 mg tablet 1 mg PO QAM hydroxychloroquine [Plaquenil] 200 mg tablet 400 mg PO PM multivitamin with minerals capsule 1 cap PO QAM prednisone 5 mg tablet 5 mg PO QAM sodium chloride [Saline Nasal] 0.65 % aerosol,spray 2 sprays INTNAS QPM sertraline [Zoloft] 100 mg tablet 100 mg PO QAM trazodone 50 mg tablet 100 mg PO HS Benlysta 400 mg recon soln 1,200 mg IV UD Patient Comments: Patient states she had last in August ~ not sure of the date Rx Instructions: Every 4 weeks omeprazole 20 mg capsule,delayed release(DR/EC) 20 mg PO DAILY amoxicillin-pot clavulanate 875-125 mg tablet 1 tab PO Q12H Qty: 14 0RF losartan 100 mg Tablet 100 mg PO QAM metoprolol succinate 25 mg tablet extended release 24 hr 25 mg PO BID Qty: 0 0RF Rx Instructions: Change dose to 25 mg twice a day. Please ask Dr. Muñoz for 90-day supply. ferrous sulfate 325 mg (65 mg iron) Tablet,Delayed Release (Dr/Ec) 325 mg PO BIDM Qty: 60 0RF Discontinued furosemide 20 mg tablet 40 mg PO QAM Qty: 0 0RF Rx Instructions: Increase dose to 40 mg (2 pills) each morning. Please ask Dr. Muñoz for 90-day supply. Discharge Orders: Discharge Order (Routine); Ordered 04/15/24 Ordered By: Dami Martin Admission Data Admit Date/Time: 04/11/24 15:53 Attending Provider: Dami Martin Admit Provider: Jarod Lucio Primary Care Provider: Lorena Jones Other Providers: Jarod Lucio; Romeo Guthrie
[2024-04-15] MEDS: INFLUENZA VACC TS2024-25(6m+)/PF (IIV3) 0.5mL Syr IM ONE (15:43)
[2024-04-15 16:09] VITALS: BP 94/59; PULSE 67
--- NOTE | 2024-04-18 09:21 | Electrocardiogram Report ---
Test Reason : Blood Pressure : */* mmHG Vent. Rate : 74 BPM Atrial Rate : 74 BPM P-R Int : 140 ms QRS Dur : 110 ms QT Int : 402 ms P-R-T Axes : 48 46 43 degrees QTcB Int : 446 ms Normal sinus rhythm Incomplete left bundle block Borderline ECG When compared with ECG of 12-Apr-2024 05:34, No significant change was found Confirmed by Archie Castro ([id number]) on 04/18/2024 9:21:24 AM Referred By: REFERRED SELF Confirmed By: Archie Castro
--- NOTE | 2024-04-20 12:50 | Operative Report ---
PG Post Operative Report Pre & Post Diagnosis Operation Date: 04/14/24 14:20 Pre-Op Diagnosis: I&D upper left infraorbital space abscess, multiple teeth carries Teeth x10 -# 2,3,5,6,7,8,9,10,11, 18 and 29 Post-Op Diagnosis: I&D upper left infraorbital space abscess, multiple teeth carries Teeth x10 -# 2,3,5,6,7,8,9,10,11, 18 and 29 I identified the patient and participated in the time-out.: Yes Procedure Operation Date: 04/14/24 14:20 Actual Procedures p I&D upper left infraorbital space abscess - Romeo Guthrie DMD s Extraction Teeth x10 -# 2,3,5,6,7,8,9,10,11, 18 and 29 Romeo Guthrie DMD Surgeon Romeo Guthrie DMD Hospitality [employer]keeper none Estimated Blood Loss 5 Findings Consistent with Post-Op Diagnosis Specimens none Drains none Anesthesia Type General Complications p Incision and Drainage left maxillary vestibule and infraorbital space Ab scess; - Romeo Guthrie DMD Disposition Accompanied Patient To Recovery: Yes Indications infection facial and left interorbital area Description of Procedure ICD 10 K12.2 , L03.211 CPT 02590 I & D of deep subcutaneous abscess of the inferior orbital and vestibular space of left maxilla [id number] Simple extraction of the following teeth x10 -# 2,3,5,6,7,8,9,10,11, 18 and 29 Once cleared for surgery general anesthesia was achieved, the eyes were protected by the anesthesia dept criteria. A time out was take for patient ID, antibiotics, equipment and position verification once all agreed the procedure began. Local anesthesia using Marcaine with a vasoconstrictor ( 1.8 ml per site) given into maxilla and mandible A throat pack was placed after the oral cavity was irrigated with saline. Once a surgical level of anesthesia was obtained and the local anesthesia was given time for the blocks the surgery was started. I turned my attention to the infection which was located in the in the left cheek,left vestibule, left tuberosity area, Infraorbital fossa area CT scan report--1. 1.9 x 1.3 cm rim-enhancing left facial fluid collection along the lateral aspect of the left maxilla. This favors a small abscess. This is odontogenic although definitive source is not identified on this exam Incision and Drainage Using a 15 blade an incision was made in the posterior aspect of the vestibular area upper left side. Once the incision was made a lot of pus extruded from the site. This drainage was cultured for anaerobic and aerobic bacteria. A curved hemostat was carefully placed superior into the infected space to drain the infraorbital space. To gain access to the pocket of pus in the cheek another incision was made in the vestibule. This allowed further drainage to escape. I palpated the face and cheek area and no further drainage was expressed. The area was irrigated with at least 100 ml of NS solution. Rosemary will be followed in my office in a few days after discharge. Local Anesthesia: profound anesthesia was obtained within 5-10 minutes. Surgical Note: Now using a periosteal elevator the tissue was reflected to expose the alveolar bone. The rongeur was used to remove bone to allow the forceps to engage solid tooth structure. Using a controlled force the tooth was extracted in the standard manner. following teeth x10 all were simple extraction [id number] -# 2,3,5,6,7,8,9,10,11, 18 and 29 Once removed the teeth and roots were inspected and the sockets were curetted. Sutures used: 2-0 Chromic I inspected the sites to insure all bleeding was controlled. I removed the throat pack and suctioned the throat. Bilateral gauze pressure dressings were placed. All instrument and sponge count was correct. The patient was allowed to awake from the anesthesia. Once full awake the anesthesia tube was removed and the patient was taken to the recovery room with all vital sign stable. The patient tolerated the surgery very well. I will follow the patient in my office, Rx and instructions will be given upon discharge. I attest to the content of the Intraoperative Record and any orders documented therein. Any exceptions are noted below.
== END 2024-04-15 16:45 | disposition home or self-care (01) | DRG 305 ==
LOC: ED 12:03 → 2E 15:43 → SUATTDRO 15:53 → 2E 15:53 → 2N 04-14 17:20

== ENCOUNTER 2025-01-04 15:47 | Inpatient (IN) ==
--- NOTE | 2025-01-04 16:09 | Emergency Department Note ---
Impression & Plan Open wound of both lower extremities with complication, Infection ED Provider Note CHIEF COMPLAINT: Leg pain HISTORY OF PRESENTING ILLNESS: The patient is a 59-year-old female who arrives to the emergency department via private vehicle for evaluation of lower extremity weeping, shortness of breath, and hypertension. She was visited by her home health nurse this afternoon, and her blood pressure was elevated. Primary care was notified, and informed her to be evaluated. PITT, not at rest. Patient states no history of pulmonary embolism. She reports she was recently ordered blood pressure and fluid pills, however she was taken off of them at her last hospital stay. She is unsure why. She states the wounds on her bilateral lower extremities, are currently being followed by an outpatient provider, and home health, however she does not follow with wound care. She states they are chronic in nature, worsening over the last 2 years, but she has had pain and wounds for the last 16 years. She reports no fever. Chest pain, abdominal pain, nausea, or vomiting. She is neurovascularly intact. REVIEW OF SYSTEMS: See HPI for pertinent positives and pertinent negatives. ALLERGIES: See below MEDICATIONS: See below PAST MEDICAL HISTORY: See below PHYSICAL EXAM: VITALS: Vitals are noted on the nurse's note and reviewed by myself. Hypertensive, tachycardia. GENERAL: 59-year-old female, in no acute distress, nondiaphoretic, obese. SKIN: Bilateral lower extremity circumferential chronic ulcerations, with weeping noted, in various stages of sloughing present. NECK: Supple without nuchal rigidity. No lymphadenopathy. Cervical spine is nontender. No JVD. HEART: Regular rate and rhythm without murmurs gallops or rubs. LUNGS: Left lower lobe coarse lung sounds, clear throughout otherwise. ABDOMEN: Positive bowel sounds x 4. Soft, nontender, without masses or organomegaly. Guardado sign negative. No guarding or rebound tenderness. MUSCULOSKELETAL: Bilateral lower extremity edema, chronic ulcerations, wounds present with various stages of breakdown, sloughing, and weeping noted. Distal extremity pulses intact. Proximal extremity pitting edema 1+. NEURO: Patient was alert and oriented to person place and time. No focal neurological deficits. DIFFERENTIAL DIAGNOSIS: DVT, musculoskeletal, infection, joint effusion, trauma, lymphedema, idiopathic, CHF, joint compromise, soft tissue injury, vascular compromise, osteomyelitis, necrosis, hematologic, vasculitis, malignancy, trauma, as well as other pathologies. ED COURSE AND MEDICAL DECISION MAKING: HISTORY FROM INDEPENDENT HISTORIAN: Family at bedside serving as secondary historian. MEDICATIONS GIVEN: IV daptomycin 800 mg, IV cefepime 2000 mg, IV morphine 4 mg MONITOR: Continuous potline monitor: Order was placed for continuous potline monitor. Patient was placed on the potline monitor and continuous pulse ox. Patient was noted to be in normal sinus rhythm at an initial rate of 96 bpm per my interpretation. EKG: EKG was interpreted by myself as normal sinus rhythm at a rate of 86 bpm, no ST elevation, depression, or ectopy. Previous for comparison from 04/13/2024 shows incomplete left bundle branch block, no longer present. INTERPRETATION OF LABS: I interpreted the labs with full lab results as below in the lab section of this note. Pertinent lab results discussed in the MDM section below. INTERPRETATION OF IMAGING: Imaging studies were interpreted by myself and read by radiology as per the imaging section of this note. CHRONIC MEDICAL/SOCIAL CONDITIONS AFFECTING CARE: Venous ulcers BLE, morbid obesity, CKD III, SLE, chronic anticoagulation, amongst others. MDM SUMMARY: The patient is a pleasant, 59-year-old female who arrives to the emergency department for evaluation of the above-stated complaint. A saline lock was established, lab work and imaging was obtained. CBC shows slight leukocytosis 11.94, new onset anemia. CMP shows no concerning findings. BNP elevated at 166, initial troponin 20.5, with repeat 22.6. Wound cultures were obtained of the lower extremities, to assist with directed antimicrobial coverage. EKG shows no concerning signs of ischemia. Chest x-ray was performed which per my interpretation shows small left pleural effusion. Bilateral lower extremity CTA imaging was performed, which shows left lower extremity three- vessel runoff seen, diffuse skin thickening and subcutaneous edema and fluid in the left lower extremity with scattered wounds no active extravasation. Right lower extremity CTA imaging shows three-vessel runoff, with diffuse skin thickening with subcutaneous edema and fluid in right lower extremity with scattered wounds, with no extravasation active or drainable fluid collection. Patient was provided IV daptomycin and cefepime for broad-spectrum coverage. She will be admitted to the hospitalist group for further evaluation. Please refer to their documentation for further patient workup and care. DIAGNOSIS: Bilateral lower extremity wounds, infection The chart was completed utilizing [employer] voice recognition software. Grammatical errors, random word insertions, pronoun errors, and incomplete sentences are an occasional consequence of this system due to software limitations, ambient noise, and hardware issues. Any formal questions or concerns about the content, text, or information contained within the body of this dictation should be directly addressed to the provider for clarification. Past Med/Surg History Problem List (Updated 01/08/25 @ 02:21 by PAKO Griffin) Infection (Acute) Open wound of both lower extremities with complication (Acute) Lymphedema Hypertensive urgency SLE (systemic lupus erythematosus related syndrome) Lupus (Chronic) Venous ulcers of both lower extremities (Acute) Anemia (Acute) Morbid obesity Leg wound, left (Acute) Leg wound, right (Acute) History of idiopathic thrombocytopenic purpura (Chronic) MCFP current use of 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 (Acute) Chronic combined systolic and diastolic CHF (congestive heart failure) Antiphospholipid antibody syndrome History of pulmonary embolism (Chronic) HTN (hypertension) (Chronic) Venous stasis ulcers of both lower extremities (Acute) Chronic venous insufficiency (Chronic) GERD (gastroesophageal reflux disease) (Chronic) Depression (Chronic) CKD (chronic kidney disease), stage III (Chronic) Hypercoagulable state (Chronic) "protein C deficiency, positive phospholipid AB syndrome, positive lupus 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" Medical History (Updated 01/08/25 @ 02:21 by PAKO Griffin) Systemic lupus erythematosus Protein C deficiency Lupus 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 positive Infection of wound due to methicillin resistant Staphylococcus aureus (MRSA) SVT (supraventricular tachycardia) History of MRSA infection Obesity COVID-19 Respiratory failure with hypoxia Acute dyspnea Pneumonia due to COVID-19 virus Acute hypoxemic respiratory failure DVT prophylaxis SLE (systemic lupus erythematosus) Cough Nasal congestion Toenail deformity MRSA infection Proteus infection Allergy to multiple antibiotics Chest pain Nausea & vomiting Abscess of pulp of tooth Swelling of submandibular region Facial infection Mandibular abscess Petechiae Hypertension, uncontrolled Pancytopenia Protein S deficiency Pulmonary embolism Ovarian cyst Hyperlipidemia [place] filter in place Diabetes DVT (deep venous thrombosis) HTN (hypertension) Surgical History (Updated 01/05/25 @ 14:52 by PAKO Whaley) S/P appendectomy Hx of oral surgery (04/13/24) p I&D Right submandibular space(Right) - Romeo Guthrie DMD s Extraction Teeth x10 - Romeo Guthrie DMD History of inferior vena caval filter placement History of dilatation and curettage H/O tooth extraction S/P hysterectomy S/P cholecystectomy S/P section H/O exploratory laparotomy H/O hernia repair Family History Mother Colorectal cancer Pulmonary embolism Grandfather Cancer Social History Smoking Status: Never smoker Second Hand Exposure: No; Do You Dip or Chew Tobacco: No; Tobacco Cessation Education Requested by Patient: No Hx Alcohol Use: No Hx Substance Use: No Preferred Language: Colombian Communication Ability: Effective Youth Officer Required: No Beliefs That Will Affect Care: None marital status: Single Current Living Situation: Family Current Living Situation Comment: lives at home w/ daughter Other Information That Helps Us Care for You: No Feels Safe at Home: Yes Safety Concerns: Feels Safe At This Time Assistive Devices: None Allergies Allergies Allergy/AdvReac Type Severity Reaction Status Date / Time heparin Allergy Severe HIT R/O Verified 01/04/25 17:13 from last hospital admission - rather was dx w/ ITP amlodipine Allergy Intermediate ITCHY RASH Verified 01/04/25 17:13 doxycycline Allergy Intermediate ITCHY RASH Verified 01/04/25 17:13 polymyxin B Allergy Intermediate ITCHY RASH Verified 01/04/25 17:13 Pork/Porcine Containing Allergy Intermediate ITCHY RASH Verified 01/04/25 17:13 Products vancomycin Allergy Intermediate RASH Verified 01/04/25 17:13 tetracycline Allergy Mild RASH, Verified 01/04/25 17:13 PRURITIS bacitracin Allergy Unknown Unknown Verified 01/04/25 17:13 sulfamethoxazole AdvReac Intermediate precipitates Verified 01/04/25 17:13 [From Bactrim] lupus per Rheumatology trimethoprim [From Bactrim] AdvReac Intermediate precipitates Verified 01/04/25 17:13 lupus per Rheumatology Home Meds Home Medications Medication Instructions Recorded Confirmed acetaminophen 500 mg tablet 1,000 mg PO Q8H PRN Pain 01/05/18 01/04/25 (Tylenol Extra Strength) apixaban 5 mg tablet (Eliquis) 5 mg PO BID 01/05/18 01/04/25 fluticasone propionate 50 2 sprays intranasal DAILY 01/05/18 01/04/25 mcg/actuation nasal spray,suspension (Flonase Allergy Relief) folic acid 1 mg tablet 1 mg PO QAM 01/05/18 01/04/25 hydroxychloroquine 200 mg tablet 400 mg PO HS 01/05/18 01/04/25 (Plaquenil) multivitamin with minerals 1 cap PO QAM 01/05/18 01/04/25 prednisone 5 mg tablet 5 mg PO QAM 01/05/18 01/04/25 sertraline 100 mg tablet (Zoloft) 100 mg PO QAM 01/05/18 01/04/25 sodium chloride 0.65 % nasal spray 2 sprays intranasal DIRECTED 01/05/18 01/04/25 aerosol (Saline Nasal) PRN Nasal Congestion trazodone 50 mg tablet 100 mg PO HS 01/05/18 01/04/25 omeprazole 20 mg capsule,delayed 20 mg PO DAILYBB 08/26/21 01/04/25 release belimumab 400 mg intravenous 1,200 mg IV UD 10/08/21 01/04/25 solution (Benlysta) acetic acid 0.25 % irrigation 0 ml intravesical BID 01/04/25 01/04/25 solution calcium 500 mg (as 1 tab PO DAILY 01/04/25 01/04/25 carbonate)-vitamin D3 3.125 mcg (125 unit) tablet diphenhydramine HCl 25 mg capsule 25 mg PO Q6H PRN NEEDED 01/04/25 01/04/25 (Benadryl) losartan 100 mg tablet 100 mg PO DAILY 01/04/25 01/04/25 Previous Rx's Medication Instructions Recorded metoprolol succinate 25 mg 25 mg PO BID #0 tabs 02/28/20 tablet,extended release 24 hr Results & Data (ED) Vital Signs Vital Signs - 24 hr 01/04/25 18:38 01/04/25 19:17 Pulse Rate 80 Pulse Rate [Apical] 86 Pulse Rhythm [Apical] Regular Pulse Strength [Apical] Normal Respiratory Rate 16 Respiratory Effort / Characteristics Non-Labored Spontaneous Respiratory Depth Normal Blood Pressure [Right Arm] 200/101 H Blood Pressure Mean [Right Arm] 134 Pulse Oximetry 99 Oxygen Delivery Method Room Air Laboratory Data 01/06/25 06:14 01/06/25 06:14 Lab Results 01/04/25 Range/Units 17:11 WBC 11.94 H (4.8-10.8) K/ul RBC 4.23 (4.20-5.40) M/uL Hgb 11.4 L (12.0-16.0) g/dl Hct 35.5 L (37.0-47.0) % MCV 83.9 (80.0-100.0) fL MCH 27.0 (25.0-34.0) pg MCHC 32.1 (32.0-36.0) g/dL RDW Std Deviation 52.5 H (36.4-46.3) fL RDW Coeff of Eduardo 17.6 H (11.5-14.5) % Plt Count 427 H (130-400) K/uL MPV 8.5 L (9.4-12.4) fL Immature Gran % (Auto) 0.8 % Neut % (Auto) 75.0 % Lymph % (Auto) 14.1 % [place] % (Auto) 9.0 % Eos % (Auto) 0.8 % Baso % (Auto) 0.3 % Neut # (Auto) 8.96 H (1.40-6.50) K/uL Lymph # (Auto) 1.68 (1.20-3.40) K/uL [place] # (Auto) 1.07 H (0.11-0.59) K/uL Eos # (Auto) 0.10 (0.00-0.50) K/uL Baso # (Auto) 0.03 (0.00-0.20) K/uL Immature Gran # (Auto) 0.10 (0.01-0.20) K/uL Sodium 143 (136-145) mmol/L Potassium 3.8 (3.5-5.1) mmol/L Chloride 109 H (98-107) mmol/L Carbon Dioxide 26 (21-32) mmol/L Anion Gap 8 (3-11) BUN 21 (6-23) mg/dl Creatinine 1.08 (0.6-1.2) mg/dl Est Cr Clr Drug Dosing 73.6 ml/min eGFR 59.91 BUN/Creatinine Ratio 19.4 (10-20) Glucose 97 (70-99(Fasting)) mg/dl Lactate 0.8 (0.4-2.0) mmol/L Calcium 9.4 (8.6-10.3) mg/dl Total Bilirubin 0.3 (0.2-1.0) mg/dl AST 19 (13-39) U/L ALT 19 (7-52) U/L Alkaline Phosphatase 73 (34-104) U/L Troponin I High Sens 20.5 H (0-14) pg/ml Total Protein 7.1 (6.0-8.3) gm/dl Albumin 3.6 (3.4-5.0) gm/dl Globulin 3.5 (2.5-4.0) gm/dl Albumin/Globulin Ratio 1.0 (0.9-2) Procalcitonin 0.05 (0-0.5) ng/ml Administered Medications Discontinued Medications Acetaminophen (Acetaminophen 325 Mg Tab) 650 mg PO Q4H PRN PRN Reason: Pain or Fever Stop: 02/03/25 22:41 Last Admin: 01/06/25 13:11 Dose: 650 mg Documented By: Admin: 01/05/25 20:46 Dose: 650 mg Documented By: Admin: 01/05/25 17:54 Dose: 650 mg Documented By: Admin: 01/05/25 07:50 Dose: 650 mg Documented By: Admin: 01/04/25 23:26 Dose: 650 mg Documented By: HARRISON Apixaban (Apixaban 5 Mg Tablet) 5 mg PO BID [facility] Stop: 02/03/25 22:41 Last Admin: 01/06/25 09:00 Dose: 5 mg Documented By: Admin: 01/05/25 20:47 Dose: 5 mg Documented By: Admin: 01/05/25 08:34 Dose: 5 mg Documented By: Admin: 01/04/25 23:50 Dose: 5 mg Documented By: HARRISON Calcium/Vitamin D (Calcium 600mg + Vit D 400 Iu Tab) 1 tab PO DAILY ART Stop: 02/04/25 08:59 Last Admin: 01/06/25 09:00 Dose: 1 tab Documented By: Admin: 01/05/25 08:33 Dose: 1 tab Documented By: ADELSO Fluticasone Propionate (Fluticasone Propionate Na Spr 16 Gm Btl) 2 sprays NA DAILY ART Stop: 02/04/25 08:59 Last Admin: 01/06/25 08:59 Dose: 2 sprays Documented By: Admin: 01/05/25 08:35 Dose: 2 sprays Documented By: ADELSO Folic Acid (Folic Acid 1 Mg Tab) 1 mg PO QAM [facility] Stop: 02/04/25 08:59 Last Admin: 01/06/25 09:00 Dose: 1 mg Documented By: Admin: 01/05/25 08:34 Dose: 1 mg Documented By: ADELSO Daptomycin 800 mg/ Syringe 16 mls @ 8 mls/min IV NOW ONE; Protocol Stop: 01/04/25 18:05 Last Admin: 01/04/25 18:21 Dose: 8 mls/min Documented By: FREIDA Cefepime HCl (Maxipime 2000mg) 2,000 mg in 20 mls @ 5 mls/min IV NOW STA Stop: 01/04/25 18:20 Last Admin: 01/04/25 18:21 Dose: 5 mls/min Documented By: CAP Cefepime HCl (Maxipime 2000mg) 2,000 mg in 20 mls @ 5 mls/min IV Q8H [facility]; Protocol Stop: 01/12/25 01:59 Last Admin: 01/05/25 10:24 Dose: 5 mls/min Documented By: Admin: 01/05/25 01:42 Dose: 5 mls/min Documented By: HARRISON Ioversol (Optiray 320 125ml) 115 ml IV ONCE ONE Stop: 01/04/25 18:10 Last Admin: 01/04/25 18:10 Dose: 115 ml Documented By: JOHNNIE Labetalol HCl (Labetalol Hcl Iv 5 Mg/Ml 20ml) 10 mg IV Q4H PRN PRN Reason: Hypertension Stop: 02/03/25 22:41 Last Admin: 01/04/25 23:13 Dose: 10 mg Documented By: HARRISON Losartan Potassium (Losartan Potassium 50 Mg Tab) 100 mg PO DAILY [facility] Stop: 02/04/25 08:59 Last Admin: 01/06/25 09:00 Dose: 100 mg Documented By: Admin: 01/05/25 08:33 Dose: 100 mg Documented By: ADELSO Metoprolol Succinate (Metoprolol Succ 25mg Ext Rel Tab) 25 mg PO BID ART Stop: 02/03/25 22:41 Last Admin: 01/06/25 09:00 Dose: 25 mg Documented By: Admin: 01/05/25 20:47 Dose: 25 mg Documented By: Admin: 01/05/25 08:34 Dose: 25 mg Documented By: Admin: 01/04/25 23:50 Dose: 25 mg Documented By: HARRISON Morphine Sulfate (Morphine Sulfate 4 Mg/Ml 1 Ml Carp\\Vial) 4 mg IV NOW STA Stop: 01/04/25 17:05 Last Admin: 01/04/25 17:12 Dose: 4 mg Documented By: CEF Morphine Sulfate (Morphine Sulfate 2 Mg/Ml Carp) 2 mg IV DAILY PRN PRN Reason: Severe Pain (Scale 7, 8, 9,10) Stop: 01/19/25 09:50 Last Admin: 01/06/25 10:16 Dose: 2 mg Documented By: Admin: 01/05/25 14:29 Dose: 2 mg Documented By: FREIDA(2) Multivitamins/Minerals (Cerovite Adv Formula Tab) [facility] [place]: 02/04/25 08:59 Last Admin: 01/06/25 09:00 Dose: 1 tab Documented By: Admin: 01/05/25 08:35 Dose: 1 tab Documented By: ADELSO Oxycodone HCl (Oxycodone Hcl Ir 5 Mg Tab (Immediate Release)) 5 mg PO NOW STA Stop: 01/04/25 20:35 Last Admin: 01/04/25 22:04 Dose: 5 mg Documented By: AMANDA Oxycodone HCl (Oxycodone Hcl Ir 5 Mg Tab (Immediate Release)) 5 mg PO Q6H PRN PRN Reason: Mod-Sev Pain (Scale 4-10) Stop: 01/18/25 22:41 Last Admin: 01/05/25 07:49 Dose: 5 mg Documented By: Admin: 01/05/25 00:50 Dose: 5 mg Documented By: HARRISON Oxycodone HCl (Oxycodone Hcl Ir 5 Mg Tab (Immediate Release)) 10 mg PO Q6H PRN PRN Reason: Mod-Sev Pain (Scale 4-10) Stop: 01/18/25 22:41 Last Admin: 01/06/25 13:11 Dose: 10 mg Documented By: Admin: 01/06/25 05:48 Dose: 10 mg Documented By: Admin: 01/05/25 18:29 Dose: 10 mg Documented By: Admin: 01/05/25 13:51 Dose: 10 mg Documented By: ADELSO Pantoprazole Sodium (Pantoprazole 40 Mg Tab) 40 mg PO DAILYBB [facility] Stop: 02/04/25 06:29 Last Admin: 01/06/25 05:48 Dose: 40 mg Documented By: Admin: 01/05/25 06:17 Dose: 40 mg Documented By: HARRISON Prednisone (Prednisone 5 Mg Tab) 5 mg PO [facility] Stop: 02/04/25 08:59 Last Admin: 01/06/25 09:00 Dose: 5 mg Documented By: Admin: 01/05/25 08:34 Dose: 5 mg Documented By: ADELSO Sertraline HCl (Sertraline Hcl 100 Mg Tablet) 100 mg PO [facility] Stop: 02/04/25 08:59 Last Admin: 01/06/25 09:00 Dose: 100 mg Documented By: Admin: 01/05/25 08:34 Dose: 100 mg Documented By: ADELSO Trazodone HCl (Trazodone Hcl 100 Mg Tab) 100 mg PO [facility] Stop: 02/03/25 22:41 Last Admin: 01/05/25 20:48 Dose: 100 mg Documented By: Admin: 01/04/25 23:50 Dose: 100 mg Documented By: HARRISON Imaging Data Attestation: I personally reviewed and interpreted this imaging study as follows: Radiologist's Impression: Chest X-Ray 01/04/25 16:22 Clinical History: Shortness of breath Technique: PA and lateral views of the chest were obtained Comparison is made to the prior examination dated 04/11/2024 Findings: There are no confluent pulmonary infiltrates. The heart size is within normal limits. No right pleural effusion or pneumothorax is seen. There is a small left pleural effusion No fracture is noted. No foreign body is seen Impression: Small left pleural effusion ACT 112: Positive. There are findings on this exam that require communication between the performing entity and the patient following Patient Test Result Information Act ([place] ACT 112) guidelines. Electronically signed by Riley Peña 01-04-2025 4:52 PM Lower Extremity CTA 01/04/25 16:49 CT ANGIOGRAM LEFT LOWER EXTREMITY WITH CONTRAST: HISTORY: TECHNIQUE: CT angiogram of the left lower extremity was obtained with intravenous contrast. Coronal and sagittal reformats were created. IV CONTRAST: 100 mL of OMNIPAQUE 300 COMPARISON: FINDINGS: There is no hemodynamically significant stenosis to the arterial system supplying the left lower extremity. Three-vessel runoff is seen. There is diffuse skin thickening with subcutaneous edema and fluid in the left lower extremity with scattered wounds. No active extravasation or drainable/organized fluid collection is identified. No displaced acute osseous process identified. 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 Three-vessel runoff is seen. Diffuse skin thickening with subcutaneous edema and fluid in the left lower extremity with scattered wounds. No active extravasation or drainable/organized fluid collection is identified. Electronically signed by Bud Apple 01-04-2025 7:32 PM Lower Extremity CTA 01/04/25 16:49 CT ANGIOGRAM RIGHT LOWER EXTREMITY WITH CONTRAST: HISTORY: PAIN TECHNIQUE: CT angiogram of the right lower extremity was obtained with intravenous contrast. Coronal and sagittal reformats were created. IV CONTRAST: 100 mL of OMNIPAQUE 300 COMPARISON: None. FINDINGS: There is no hemodynamically significant stenosis to the arterial system supplying the right lower extremity. Three-vessel runoff is seen. There is diffuse skin thickening with subcutaneous edema and fluid in the right lower extremity with scattered wounds. No active extravasation or drainable/organized fluid collection is identified. No displaced acute osseous process identified. 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 Three-vessel runoff is seen. Diffuse skin thickening with subcutaneous edema and fluid in the right lower extremity with scattered wounds. No active extravasation or drainable/organized fluid collection is identified. Electronically signed by Bud Apple 01-04-2025 7:47 PM Discharge Plan Visit Data Chief Complaint: Leg Injury/Pain Stated Complaint: PAIN IN LEGS WITH SORES, HIGH BP ED Provider: Angel Koo ED Midlevel Provider: Monique Jauregui Discharge Problem: Open wound of both lower extremities with complication, Infection Patient Disposition: Admitted As Inpatient Condition: Fair Discharge Instructions Interventions: ED Discharge Assessment Last Done: 01/04/25 22:23
--- NOTE | 2025-01-04 16:53 | XRay Report ---
Clinical History: Shortness of breath Technique: PA and lateral views of the chest were obtained Comparison is made to the prior examination dated 04/11/2024 Findings: There are no confluent pulmonary infiltrates. The heart size is within normal limits. No right pleural effusion or pneumothorax is seen. There is a small left pleural effusion No fracture is noted. No foreign body is seen Impression: Small left pleural effusion ACT 112: Positive. There are findings on this exam that require communication between the performing entity and the patient following Patient Test Result Information Act ([place] ACT 112) guidelines. Electronically signed by Riley Peña 01-04-2025 4:52 PM
[2025-01-04] MEDS: MoRPHine SULFATE 4 MG/ML 1 ML CARP\\VIAL IV STA (17:12)
[2025-01-04 17:27] LABS: Hematocrit (blood only) 35.5 % (37.0-47.0); Hemoglobin 11.4 g/dl (12.0-16.0); Immature Granulocytes # (auto) 0.10 K/uL (0.01-0.20); Immature Granulocytes % (auto) 0.8 %; Mean Corpuscular Hemoglobin 27.0 pg (25.0-34.0); Mean Corpuscular Volume 83.9 fL (80.0-100.0); Platelet Count 427 K/uL (130-400); RDW Standard Deviation 52.5 fL (36.4-46.3); Red Blood Count 4.23 M/uL (4.20-5.40); White Blood Count 11.94 K/ul (4.8-10.8)
[2025-01-04 17:44] LABS: Alanine Aminotransferase 19.0 U/L (7-52); Albumin Globulin Ratio 1.0 (0.9-2); Alkaline Phosphatase 73.0 U/L (34-104); Anion Gap 8.0 (3-11); Bilirubin,Total 0.3 mg/dl (0.2-1.0); Blood Urea Nitrogen 21.0 mg/dl (6-23); Calcium 9.4 mg/dl (8.6-10.3); Carbon Dioxide 26.0 mmol/L (21-32); Chloride 109.0 mmol/L (98-107); Creatinine Clr Calc Pharmacy 73.6 ml/min; Globulin 3.5 gm/dl (2.5-4.0); Glucose 97.0 mg/dl (70-99(Fasting)); Potassium 3.8 mmol/L (3.5-5.1); Sodium 143.0 mmol/L (136-145); Total Protein 7.1 gm/dl (6.0-8.3)
[2025-01-04] MEDS ORDERED: CEFEPIME 2 GM VIAL IV ONE (17:55)
[2025-01-04] MEDS: OPTIRAY 320 125ml IV ONE (18:10)
[2025-01-04] MEDS: DAPTOmycin 800 MG in SYRINGE 0 ML IV ONE (18:21)
[2025-01-04] MEDS: CEFEPIME 2000MG 2,000 MG/20 ML SYR IV STA (18:21)
--- NOTE | 2025-01-04 19:32 | CT Scan Report ---
CT ANGIOGRAM LEFT LOWER EXTREMITY WITH CONTRAST: HISTORY: TECHNIQUE: CT angiogram of the left lower extremity was obtained with intravenous contrast. Coronal and sagittal reformats were created. IV CONTRAST: 100 mL of OMNIPAQUE 300 COMPARISON: FINDINGS: There is no hemodynamically significant stenosis to the arterial system supplying the left lower extremity. Three-vessel runoff is seen. There is diffuse skin thickening with subcutaneous edema and fluid in the left lower extremity with scattered wounds. No active extravasation or drainable/organized fluid collection is identified. No displaced acute osseous process identified. 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 Three-vessel runoff is seen. Diffuse skin thickening with subcutaneous edema and fluid in the left lower extremity with scattered wounds. No active extravasation or drainable/organized fluid collection is identified. Electronically signed by Bud Apple 01-04-2025 7:32 PM
--- NOTE | 2025-01-04 19:47 | CT Scan Report ---
CT ANGIOGRAM RIGHT LOWER EXTREMITY WITH CONTRAST: HISTORY: PAIN TECHNIQUE: CT angiogram of the right lower extremity was obtained with intravenous contrast. Coronal and sagittal reformats were created. IV CONTRAST: 100 mL of OMNIPAQUE 300 COMPARISON: None. FINDINGS: There is no hemodynamically significant stenosis to the arterial system supplying the right lower extremity. Three-vessel runoff is seen. There is diffuse skin thickening with subcutaneous edema and fluid in the right lower extremity with scattered wounds. No active extravasation or drainable/organized fluid collection is identified. No displaced acute osseous process identified. 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 Three-vessel runoff is seen. Diffuse skin thickening with subcutaneous edema and fluid in the right lower extremity with scattered wounds. No active extravasation or drainable/organized fluid collection is identified. Electronically signed by Bud Apple 01-04-2025 7:47 PM
--- NOTE | 2025-01-04 21:54 | History & Physical Report ---
Date of Service January 04, 2025 Assessment & Plan (1) Hypertensive urgency: Plan: 59-year-old female with past medical history significant for hyperlipidemia, hypertension, history of SVT, chronic diastolic CHF, venous stasis ulcers of both lower extremities, bilateral lower leg cellulitis, history of antiphospholipid antibody syndrome, history of thrombocytopenia, history of SLE, history of lymphedema, history of PE, history of DVT, status post IVC filter, history of ITP, history of depression, long-term steroid user who lives at home with her daughter and ambulates without support comes because of hypertensive urgency and also ongoing lower extremity wounds. Patient says she is having ongoing lower extremity wounds for last 2 and half years and follows with wound clinic every week. She also has home health nurse who comes couple of times a week. When the home health nurse came today her blood pressure was elevated and was advised come to the ER. Patient also says she is having on and off fevers for last 1 week. Has pain in lower extremities. She is following with wound care and ID. As per patient ,was placed on Augmentin for 20 days by ID and couple of tablets left. Since she is on Augmentin she is having some diarrhea. Denies any bloody stools or black stools. Micturating okay. Denies any abdominal pain. No nausea or vomiting. No chest pains. Has shortness of breath on exertion. No back pain. Has headache. Vision is blurry. No headache. No runny nose. Has some sore throat. No cough. Appetite is okay. Currently resting comfortably and hemodynamically stable. Hypertensive urgency Continue home losartan and metoprolol succinate IV labetalol as needed Last admission April 2024 patient was also placed on Imdur, spironolactone and chlorthalidone but patient states she did not had prescriptions and not taki ng it Monitoring telemetry Cardiac consult in a.m. for further recommendations Chronic diastolic CHF Monitor for volume overload Bilateral lower extremity wounds Ongoing follows with wound care and ID CTA bilateral lower extremities no significant stenosis or any collections ER empirical started Dapto and cefepime which will continued Wound care consult ID consult Morbid obesity Sleep study as outpatient History of antiphospholipid antibody syndrome History of DVT and PE Status post IVC filter On Eliquis History of SLE On chronic prednisone which will be continued We will hold Plaquenil Also on belimumab monthly GERD On omeprazole Hyperlipidemia Last admin was started on rosuvastatin History of SVT On Toprol Depression On Zoloft and trazodone DVT prophylaxis Eliquis Disposition Telemetry Full code. History of Present Illness Chief Complaint: Hypertensive urgency and lower extremity wounds Primary Care Provider: Lorena Jones PA-C 59-year-old female with past medical history significant for hyperlipidemia, hypertension, history of SVT, chronic diastolic CHF, venous stasis ulcers of both lower extremities, bilateral lower leg cellulitis, history of antiphospholipid antibody syndrome, history of thrombocytopenia, history of SLE, history of lymphedema, history of PE, history of DVT, status post IVC filter, history of ITP, history of depression, long-term steroid user who lives at home with her daughter and ambulates without support comes because of hypertensive urgency and also ongoing lower extremity wounds. Patient says she is having ongoing lower extremity wounds for last 2 and half years and follows with wound clinic every week. She also has home health nurse who comes couple of times a week. When the home health nurse came today her blood pressure was elevated and was advised come to the ER. Patient also says she is having on and off fevers for last 1 week. Has pain in lower extremities. She is following with wound care and ID. As per patient ,was placed on Augmentin for 20 days by ID and couple of tablets left. Since she is on Augmentin she is having some diarrhea. Denies any bloody stools or black stools. Micturating okay. Denies any abdominal pain. No nausea or vomiting. No chest pains. Has shortness of breath on exertion. No back pain. Has headache. Vision is blurry. No headache. No runny nose. Has some sore throat. No cough. Appetite is okay. Currently resting comfortably and hemodynamically stable. Past medical history. As mentioned above. Past surgical history. . Colonoscopy. Exploratory laparotomy. IVC filter placement. Total abdominal hysterectomy with removal of tubes. Social history. No smoking. No alcohol. No drug use. Family history. Mother had colon cancer. Mother had DVT. Allergies Allergy/AdvReac Type Severity Reaction Status Date / Time heparin Allergy Severe HIT R/O Verified 01/04/25 17:13 from last hospital admission - rather was dx w/ ITP amlodipine Allergy Intermediate ITCHY RASH Verified 01/04/25 17:13 doxycycline Allergy Intermediate ITCHY RASH Verified 01/04/25 17:13 polymyxin B Allergy Intermediate ITCHY RASH Verified 01/04/25 17:13 Pork/Porcine Containing Allergy Intermediate ITCHY RASH Verified 01/04/25 17:13 Products vancomycin Allergy Intermediate RASH Verified 01/04/25 17:13 tetracycline Allergy Mild RASH, Verified 01/04/25 17:13 PRURITIS bacitracin Allergy Unknown Unknown Verified 01/04/25 17:13 sulfamethoxazole AdvReac Intermediate precipitates Verified 01/04/25 17:13 [From Bactrim] lupus per Rheumatology trimethoprim [From Bactrim] AdvReac Intermediate precipitates Verified 01/04/25 17:13 lupus per Rheumatology Home Medications Medication Instructions Recorded Confirmed Type acetaminophen 500 mg tablet 1,000 mg PO Q8H PRN Pain 01/05/18 01/04/25 History (Tylenol Extra Strength) apixaban 5 mg tablet (Eliquis) 5 mg PO BID 01/05/18 01/04/25 History fluticasone propionate 50 2 sprays intranasal DAILY 01/05/18 01/04/25 History mcg/actuation nasal spray,suspension (Flonase Allergy Relief) folic acid 1 mg tablet 1 mg PO QAM 01/05/18 01/04/25 History hydroxychloroquine 200 mg tablet 400 mg PO HS 01/05/18 01/04/25 History (Plaquenil) multivitamin with minerals 1 cap PO QAM 01/05/18 01/04/25 History prednisone 5 mg tablet 5 mg PO QAM 01/05/18 01/04/25 History sertraline 100 mg tablet (Zoloft) 100 mg PO QAM 01/05/18 01/04/25 History sodium chloride 0.65 % nasal spray 2 sprays intranasal DIRECTED 01/05/18 01/04/25 History aerosol (Saline Nasal) PRN Nasal Congestion trazodone 50 mg tablet 100 mg PO HS 01/05/18 01/04/25 History metoprolol succinate 25 mg 25 mg PO BID #0 tabs 02/28/20 01/04/25 Rx tablet,extended release 24 hr omeprazole 20 mg capsule,delayed 20 mg PO DAILYBB 08/26/21 01/04/25 History release belimumab 400 mg intravenous 1,200 mg IV UD 10/08/21 01/04/25 History solution (Benlysta) acetic acid 0.25 % irrigation 0 ml intravesical BID 01/04/25 01/04/25 History solution calcium 500 mg (as 1 tab PO DAILY 01/04/25 01/04/25 History carbonate)-vitamin D3 3.125 mcg (125 unit) tablet diphenhydramine HCl 25 mg capsule 25 mg PO Q6H PRN NEEDED 01/04/25 01/04/25 History (Benadryl) losartan 100 mg tablet 100 mg PO DAILY 01/04/25 01/04/25 History Past Med/Surg History Problem List (Updated 01/04/25 @ 22:01 by Haresh Watts MD) Hypertensive urgency Petechiae Mandibular abscess Facial infection Swelling of submandibular region Abscess of pulp of tooth SLE (systemic lupus erythematosus related syndrome) Nausea & vomiting (Acute) Chest pain (Acute) Lupus (Chronic) Venous ulcers of both lower extremities (Acute) Allergy to multiple antibiotics Proteus infection MRSA infection Toenail deformity Nasal congestion (Acute) Cough (Acute) SLE (systemic lupus erythematosus) DVT prophylaxis Acute hypoxemic respiratory failure Pneumonia due to COVID-19 virus Acute dyspnea (Acute) Respiratory failure with hypoxia (Acute) COVID-19 (Acute) Obesity (Acute) Anemia (Acute) Morbid obesity History of MRSA infection SVT (supraventricular tachycardia) (Acute) Leg wound, left (Acute) Leg wound, right (Acute) Infection of wound due to methicillin resistant Staphylococcus aureus (MRSA) (Acute) Lupus 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 positive (Chronic) Protein C deficiency History of idiopathic thrombocytopenic purpura (Chronic) longterm current use of 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 (Acute) S/P appendectomy (Chronic) Systemic lupus erythematosus (Chronic) Chronic combined systolic and diastolic CHF (congestive heart failure) Antiphospholipid antibody syndrome History of pulmonary embolism (Chronic) HTN (hypertension) (Chronic) Venous stasis ulcers of both lower extremities (Acute) Chronic venous insufficiency (Chronic) GERD (gastroesophageal reflux disease) (Chronic) Depression (Chronic) CKD (chronic kidney disease), stage III (Chronic) Hypercoagulable state (Chronic) "protein C deficiency, positive phospholipid AB syndrome, positive lupus 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" Medical History Hypertension, uncontrolled Pancytopenia Protein S deficiency Pulmonary embolism Ovarian cyst Hyperlipidemia Chaim filter in place Diabetes DVT (deep venous thrombosis) HTN (hypertension) Surgical History Hx of oral surgery (04/13/24) p I&D Right submandibular space(Right) - Romeo Guthrie, DMD s Extraction Teeth x10 - Romeo Guthrie DMD History of inferior vena caval filter placement History of dilatation and curettage H/O tooth extraction S/P hysterectomy S/P cholecystectomy S/P section H/O exploratory laparotomy H/O hernia repair Family History Mother Colorectal cancer Pulmonary embolism Grandfather Cancer Social History Smoking Status: Never smoker Second Hand Exposure: No; Do You Dip or Chew Tobacco: No; Tobacco Cessation Education Requested by Patient: No Hx Alcohol Use: No Hx Substance Use: No Preferred Language: Pashto Communication Ability: Effective Seafood Manager Required: No Beliefs That Will Affect Care: None marital status: Single Current Living Situation: Family Current Living Situation Comment: lives at home w/ daughter Other Information That Helps Us Care for You: No Feels Safe at Home: Yes Safety Concerns: Feels Safe At This Time Assistive Devices: None Review of Systems Review of Systems: All systems reviewed & are unremarkable except as noted in HPI & below Physical Exam Physical Exam: General- Not in distress. Head- atraumatic Eyes- PERRL. ENT- oropharynx clear Neck- supple, no JVD. Lungs- clear to auscultation no wheezing or crackles. Heart- regular rhythm; no murmur, no gallop. Abdomen- normal bowel sounds, soft, nontender, no distension. Extremities- b/l lower extremity wounds. right leg in dressing. left leg below knee wounds with full thickness skin loss Neuro- alert, oriented PERRL, no facial palsy; no dysarthria; moves extremities Results & Data Results & Data Vital Signs (Past 12 Hours) Vital Signs Temp Pulse Pulse Resp BP BP Pulse Ox 01/04/25 19:17 86 16 200/101 H 99 01/04/25 18:38 80 01/04/25 15:50 36.7 C 96 H 18 193/97 H 96 O2 Del Method 01/04/25 19:17 Room Air 01/04/25 18:38 01/04/25 15:50 Room Air Diagnostic Findings Laboratory Results WBC 11.94 K/ul (4.8-10.8) H 01/04/25 17:11 RBC 4.23 M/uL (4.20-5.40) 01/04/25 17:11 Hgb 11.4 g/dl (12.0-16.0) L 01/04/25 17:11 Hct 35.5 % (37.0-47.0) L 01/04/25 17:11 MCV 83.9 fL (80.0-100.0) 01/04/25 17:11 MCH 27.0 pg (25.0-34.0) 01/04/25 17:11 MCHC 32.1 g/dL (32.0-36.0) 01/04/25 17:11 RDW Std Deviation 52.5 fL (36.4-46.3) H 01/04/25 17:11 RDW Coeff of Eduardo 17.6 % (11.5-14.5) H 01/04/25 17:11 Plt Count 427 K/uL (130-400) H 01/04/25 17:11 MPV 8.5 fL (9.4-12.4) L 01/04/25 17:11 Immature Gran % (Auto) 0.8 % 01/04/25 17:11 Neut % (Auto) 75.0 % 01/04/25 17:11 Lymph % (Auto) 14.1 % 01/04/25 17:11 Blanco % (Auto) 9.0 % 01/04/25 17:11 Eos % (Auto) 0.8 % 01/04/25 17:11 Baso % (Auto) 0.3 % 01/04/25 17:11 Neut # (Auto) 8.96 K/uL (1.40-6.50) H 01/04/25 17:11 Lymph # (Auto) 1.68 K/uL (1.20-3.40) 01/04/25 17:11 Blanco # (Auto) 1.07 K/uL (0.11-0.59) H 01/04/25 17:11 Eos # (Auto) 0.10 K/uL (0.00-0.50) 01/04/25 17:11 Baso # (Auto) 0.03 K/uL (0.00-0.20) 01/04/25 17:11 Immature Gran # (Auto) 0.10 K/uL (0.01-0.20) 01/04/25 17:11 Sodium 143 mmol/L (136-145) 01/04/25 17:11 Potassium 3.8 mmol/L (3.5-5.1) 01/04/25 17:11 Chloride 109 mmol/L (98-107) H 01/04/25 17:11 Carbon Dioxide 26 mmol/L (21-32) 01/04/25 17:11 Anion Gap 8 (3-11) 01/04/25 17:11 BUN 21 mg/dl (6-23) 01/04/25 17:11 Creatinine 1.08 mg/dl (0.6-1.2) 01/04/25 17:11 Est Cr Clr Drug Dosing 73.6 ml/min 01/04/25 17:11 eGFR 59.91 01/04/25 17:11 BUN/Creatinine Ratio 19.4 (10-20) 01/04/25 17:11 Glucose 97 mg/dl (70-99(Fasting)) 01/04/25 17:11 Lactate 0.8 mmol/L (0.4-2.0) 01/04/25 17:11 Calcium 9.4 mg/dl (8.6-10.3) 01/04/25 17:11 Total Bilirubin 0.3 mg/dl (0.2-1.0) 01/04/25 17:11 AST 19 U/L (13-39) 01/04/25 17:11 ALT 19 U/L (7-52) 01/04/25 17:11 Alkaline Phosphatase 73 U/L (34-104) 01/04/25 17:11 Troponin I High Sens 22.6 pg/ml (0-14) H 01/04/25 20:45 B-Natriuretic Peptide 166 pg/ml (0-100) H 01/04/25 20:45 Total Protein 7.1 gm/dl (6.0-8.3) 01/04/25 17:11 Albumin 3.6 gm/dl (3.4-5.0) 01/04/25 17:11 Globulin 3.5 gm/dl (2.5-4.0) 01/04/25 17:11 Albumin/Globulin Ratio 1.0 (0.9-2) 01/04/25 17:11 Procalcitonin 0.05 ng/ml (0-0.5) 01/04/25 17:11 Impressions Chest X-Ray 01/04/25 16:22 Clinical History: Shortness of breath Technique: PA and lateral views of the chest were obtained Comparison is made to the prior examination dated 04/11/2024 Findings: There are no confluent pulmonary infiltrates. The heart size is within normal limits. No right pleural effusion or pneumothorax is seen. There is a small left pleural effusion No fracture is noted. No foreign body is seen Impression: Small left pleural effusion ACT 112: Positive. There are findings on this exam that require communication between the performing entity and the patient following Patient Test Result Information Act ([place] ACT 112) guidelines. Electronically signed by Riley Peña 01-04-2025 4:52 PM Lower Extremity CTA 01/04/25 16:49 CT ANGIOGRAM LEFT LOWER EXTREMITY WITH CONTRAST: HISTORY: TECHNIQUE: CT angiogram of the left lower extremity was obtained with intravenous contrast. Coronal and sagittal reformats were created. IV CONTRAST: 100 mL of OMNIPAQUE 300 COMPARISON: FINDINGS: There is no hemodynamically significant stenosis to the arterial system supplying the left lower extremity. Three-vessel runoff is seen. There is diffuse skin thickening with subcutaneous edema and fluid in the left lower extremity with scattered wounds. No active extravasation or drainable/organized fluid collection is identified. No displaced acute osseous process identified. 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 Three-vessel runoff is seen. Diffuse skin thickening with subcutaneous edema and fluid in the left lower extremity with scattered wounds. No active extravasation or drainable/organized fluid collection is identified. Electronically signed by Bud Apple 01-04-2025 7:32 PM Code Status & VTE Plan VTE Prophylaxis Plan VTE Prophylaxis will be ordered: Yes
[2025-01-04] MEDS ORDERED: SODIUM CHLORIDE 0.65% NA SOLN 45 ML (OCEAN) PRN (22:42)
[2025-01-04] MEDS ORDERED: POLYETHYLENE (MIRALAX) 17 GM PACK PO PRN (22:42)
[2025-01-04] MEDS ORDERED: diphenhydrAMINE Capsule 25 MG CAP PO PRN (22:42)
[2025-01-04] MEDS ORDERED: NITROGLYCERIN SL 0.4 MG/TAB TAB SL PRN (22:42)
[2025-01-04] MEDS: LABETALOL HCL IV 5 MG/ML 20ML IV PRN (23:13)
[2025-01-04] MEDS: ACETAMINOPHEN 325 MG TAB PO PRN (23:26)
[2025-01-04] MEDS: APIXABAN 5 MG TABLET PO SCH (23:50)
[2025-01-04] MEDS: METOPROLOL SUCC 25MG EXT REL TAB PO SCH (23:50)
[2025-01-05] MEDS: CEFEPIME 2000MG 2,000 MG/20 ML SYR IV SCH (01:42)
[2025-01-05 05:50] LABS: Hematocrit (blood only) 33.4 % (37.0-47.0); Hemoglobin 10.2 g/dl (12.0-16.0); Immature Granulocytes # (auto) 0.07 K/uL (0.01-0.20); Immature Granulocytes % (auto) 0.7 %; Mean Corpuscular Hemoglobin 26.5 pg (25.0-34.0); Mean Corpuscular Volume 86.8 fL (80.0-100.0); Platelet Count 322 K/uL (130-400); RDW Standard Deviation 54.9 fL (36.4-46.3); Red Blood Count 3.85 M/uL (4.20-5.40); White Blood Count 10.54 K/ul (4.8-10.8)
[2025-01-05 06:04] LABS: Anion Gap 8.0 (3-11); Calcium 8.8 mg/dl (8.6-10.3); Carbon Dioxide 21.0 mmol/L (21-32); Chloride 112.0 mmol/L (98-107); Magnesium 2.0 mg/dl (1.7-2.4); Potassium 3.7 mmol/L (3.5-5.1); Sodium 141.0 mmol/L (136-145)
[2025-01-05 06:11] LABS: Blood Urea Nitrogen 21.0 mg/dl (6-23); Creatinine Clr Calc Pharmacy 106.0 ml/min; Glucose 78.0 mg/dl (70-99(Fasting))
[2025-01-05] MEDS: LOSARTAN POTASSIUM 50 MG TAB PO SCH (08:33)
[2025-01-05] MEDS: CALCIUM 600MG + VIT D 400 IU TAB PO SCH (08:33)
[2025-01-05] MEDS: FOLIC ACID 1 MG TAB PO SCH (08:34)
[2025-01-05] MEDS: SERTRALINE HCL 100 MG TABLET PO SCH (08:34)
[2025-01-05] MEDS: FLUTICASONE PROPIONATE NA SPR 16 GM BTL SCH (08:35)
[2025-01-05] MEDS: CEROVITE ADV FORMULA TAB PO SCH (08:35)
--- NOTE | 2025-01-05 08:58 | Hospitalist Progress Note ---
Date of Service January 05, 2025 Assessment & Plan (1) Venous stasis ulcers of both lower extremities: (2) Pseudomonas infection: (3) Hypertensive urgency: (4) SLE (systemic lupus erythematosus related syndrome): (5) History of pulmonary embolism: (6) GERD (gastroesophageal reflux disease): (7) Depression: Plan 59 year old female with PMH significant for hyperlipidemia, hypertension, history of SVT, chronic diastolic CHF, venous stasis ulcers of both lower extremities, bilateral lower leg cellulitis, history of antiphospholipid antibody syndrome, history of thrombocytopenia, history of SLE, history of lymphedema, history of PE, history of DVT, status post IVC filter, history of ITP, history of depression, long-term steroid user who presented to the ED on 01/04/2025 with hypertension and ongoing lower extremity wounds. Bilateral lower extremity wounds Possible cellulitis of bilateral lower extremity Chronic wounds for 2.5 years Follows with wound clinic and ID weekly and has HH nurse for dressing changes Recently prescribed Augmentin outpatient CTA lower extremity without stenosis; diffuse skin thickening with subcutaneous edema and fluid with scattered wounds Wound culture prelim growing pseudomonas and pasteurella canis/oralis Blood culture pending Continue cefepime and daptomycin Pain control with tylenol and oxycodone PRN WOCN consulted ID will review wound images once uploaded by Wound care team Hypertensive urgency, resolved Presented with BPs 190-200s/90-100s Resolved with IV labetalol x1 Continue home losartan and metoprolol succinate History of antiphospholipid antibody syndrome History of DVT and PE s/p IVC filter Continue Eliquis History of SLE Continue prednisone Home plaquenil on hold GERD Continue PPI Depression Continue sertraline and trazodone DVT Prophylaxis: on Eliquis Code Status: FULL CODE PCP: Lorena Jones Disposition: awaiting WOCN/ID recs Patient seen in collaboration with Dr Borja. Please see addendum. I spent a total of 50 minutes coordinating, documenting and providing care for this patient excluding time spent in the performance of separately billed services or time spent by another provider/QHP. Admission and Anticipated Discharge Date Admission Date: January 04, 2025 Supervising Physician Co-Signing Physician Notes Patient seen and examined Agree with findings and plans as detailed by Alexia MIN Subjective Patient seen resting in bed Reports 7/10 pain in her lower legs Denies chest pain, SOB, abdominal pain, N/V Review of Systems Review of Systems: All systems reviewed & are unremarkable except as noted in Subjective Physical Exam Physical Exam: General/Psych: WD/WN, sitting up in bed, NAD, conversing easily Head: normocephalic, atraumatic Eyes: normal inspection, PERRL, conjunctivae pink ENT: external ear and nose normal, oropharynx normal Neck: normal visual inspection, trachea midline Respiratory: normal respiratory effort, lungs clear to auscultation, no wheeze/rales/rhonchi, no accessory muscle use Cardiovascular: regular rate and rhythm, no murmur/rub/gallop, no JVD Extremities: no cyanosis or clubbing, normal peripheral pulses, no BLE edema Abdomen/GI: normal bowel sounds, soft, nontender Neurologic/MSK: A+Ox3, motor strength 5/5, moves all extremities Skin: no rashes, normal color, warm and dry; bilateral lower legs with gauze wraps saturated with serous drainage Results & Data Results & Data Vital Signs (Past 12 Hours) Vital Signs Temp Pulse Pulse Resp BP BP Pulse Ox 01/05/25 08:06 36.8 C 84 18 143/62 H 98 01/05/25 05:17 36.7 C 94 H 18 117/64 97 01/04/25 23:29 77 163/87 H 01/04/25 23:13 95 H 209/112 H 01/04/25 22:42 01/04/25 22:42 01/04/25 22:42 36.5 C 95 H 20 209/112 H 98 01/04/25 22:10 90 18 177/124 H Pulse Ox O2 Del Method O2 Del Method 01/05/25 08:06 Room Air 01/05/25 05:17 Room Air 01/04/25 23:29 01/04/25 23:13 01/04/25 22:42 98 Room Air 01/04/25 22:42 Room Air 01/04/25 22:42 Room Air 01/04/25 22:10 Laboratory Results Short CBC 01/04/25 01/05/25 Range/Units 17:11 05:22 WBC 11.94 H 10.54 (4.8-10.8) K/ul Hgb 11.4 L 10.2 L (12.0-16.0) g/dl Hct 35.5 L 33.4 L (37.0-47.0) % Plt Count 427 H 322 (130-400) K/uL BMP 01/04/25 01/05/25 17:11 05:22 Sodium 143 141 Potassium 3.8 3.7 Chloride 109 H 112 H Carbon Dioxide 26 21 BUN 21 21 Creatinine 1.08 0.75 D Glucose 97 78 Calcium 9.4 8.8 Liver Function 01/04/25 Range/Units 17:11 Total Bilirubin 0.3 (0.2-1.0) mg/dl AST 19 (13-39) U/L ALT 19 (7-52) U/L Alkaline Phosphatase 73 (34-104) U/L Albumin 3.6 (3.4-5.0) gm/dl I have independently reviewed and interpreted patient's labs including CBC and BMP Medications Administered Current Inpatient Medications Acetaminophen (Acetaminophen 325 Mg Tab) 650 mg PO Q4H PRN PRN Reason: Pain or Fever Stop: 02/03/25 22:41 Last Admin: 01/05/25 07:50 Dose: 650 mg Apixaban (Apixaban 5 Mg Tablet) [address] [facility] Stop: 02/03/25 22:41 Last Admin: 01/05/25 08:34 Dose: 5 mg Calcium/Vitamin D (Calcium 600mg + Vit D 400 Iu Tab) 1 tab PO DAILY ART Stop: 02/04/25 08:59 Last Admin: 01/05/25 08:33 Dose: 1 tab Diphenhydramine HCl (Diphenhydramine Capsule 25 Mg Cap) 25 mg PO Q6H PRN PRN Reason: NEEDED Stop: 02/03/25 22:41 Fluticasone Propionate (Fluticasone Propionate Na Spr 16 Gm Btl) 2 sprays NA DAILY ART Stop: 02/04/25 08:59 Last Admin: 01/05/25 08:35 Dose: 2 sprays Folic Acid (Folic Acid 1 Mg Tab) 1 mg PO QAM ART Stop: 02/04/25 08:59 Last Admin: 01/05/25 08:34 Dose: 1 mg Cefepime HCl (Maxipime 2000mg) 2,000 mg in 20 mls @ 5 mls/min IV Q8H ART; Protocol Stop: 01/12/25 01:59 Last Admin: 01/05/25 01:42 Dose: 5 mls/min Daptomycin 600 mg/ Syringe 12 mls @ 6 mls/min IV Q24H [facility]; Protocol Stop: 01/12/25 17:59 Labetalol HCl (Labetalol Hcl Iv 5 Mg/Ml 20ml) 10 mg IV Q4H PRN PRN Reason: Hypertension Stop: 02/03/25 22:41 Last Admin: 01/04/25 23:13 Dose: 10 mg Losartan Potassium (Losartan Potassium 50 Mg Tab) [address] [facility] Stop: 02/04/25 08:59 Last Admin: 01/05/25 08:33 Dose: 100 mg Metoprolol Succinate (Metoprolol Succ 25mg Ext Rel Tab) [address] [facility] Stop: 02/03/25 22:41 Last Admin: 01/05/25 08:34 Dose: 25 mg Multivitamins/Minerals (Cerovite Adv Formula Tab) [address] [facility] Stop: 02/04/25 08:59 Last Admin: 01/05/25 08:35 Dose: 1 tab Nitroglycerin (Nitroglycerin Sl 0.4 Mg/Tab Tab) 0.4 mg SL Q5M PRN PRN Reason: Chest Pain Stop: 02/03/25 22:41 Oxycodone HCl (Oxycodone Hcl Ir 5 Mg Tab (Immediate Release)) 5 mg PO Q6H PRN PRN Reason: Mod-Sev Pain (Scale 4-10) Stop: 01/18/25 22:41 Last Admin: 01/05/25 07:49 Dose: 5 mg Pantoprazole Sodium (Pantoprazole 40 Mg Tab) [address] [facility] Stop: 02/04/25 06:29 Last Admin: 01/05/25 06:17 Dose: 40 mg Polyethylene Glycol (Polyethylene (Miralax) 17 Gm Pack) 17 gm PO DAILY PRN PRN Reason: Constipation Stop: 02/03/25 22:41 Prednisone (Prednisone 5 Mg Tab) [address] [facility] Stop: 02/04/25 08:59 Last Admin: 01/05/25 08:34 Dose: 5 mg Sertraline HCl (Sertraline Hcl 100 Mg Tablet) [address] [facility] Stop: 02/04/25 08:59 Last Admin: 01/05/25 08:34 Dose: 100 mg Sodium Chloride (Sodium Chloride 0.65% Na Soln 45 Ml ([place])) 2 sprays NA DAILY PRN PRN Reason: Nasal Congestion Stop: 02/03/25 22:41 Trazodone HCl (Trazodone Hcl 100 Mg Tab) 100 mg PO HS ART Stop: 02/03/25 22:41 Last Admin: 01/04/25 23:50 Dose: 100 mg
[2025-01-05] MEDS: MoRPHine SULFATE 2 MG/ML CARP IV PRN (14:29)
--- NOTE | 2025-01-05 16:10 | Infectious Disease Consult ---
Date of Service January 05, 2025 Telehealth Information I performed this visit using a real-time telehealth connection between my location and the patients location ([facility]). After connecting through interactive tele-video, patient was identified by name and date of and/or wristband check.Patient (or authorized healthcare front office representative) was informed that this was a telemedicine visit and it was being conducted confidentially over secure lines. My office door was closed and no o ne else was present in the room with me.Patient (or authorized healthcare front office representative) provided consent to proceed with the visit, expressed an understanding of privacy and security of the telemedicine visit, and gave permission to have a hospital front office representative in the room in order to assist with the visit and to conduct portions of the visit, as needed. I informed the patient (or authorized healthcare front office representative) that I reviewed their record and presented the opportunity for them to ask any questions regarding the visit today. The patient agreed to participate. Assessment & Plan (1) Venous ulcers of both lower extremities: (2) Lymphedema: (3) Morbid obesity: (4) Hypertensive urgency: Plan The clinical presentation and vitals do not suggest an infectious process and patient did not report any new changes in her ulcers. I would only be inclined to treat if there is any change from her baseline including excessive drainage or new cellulitis. Also, she just completed a 3 week course of oral Cipro based on a superficial culture obtained at the [facility]. The patient's chronic wounds will always be colonized with multiple organisms and superficial swab will not be reliable. Therefore, I would recommend stopping all antibiotics for now. Please consult Wound Care and asked them to take multiple pictures so that I can examine in the chart and decide on further management plan. History of Present Illness History of Present Illness Ms. Nguyen is a 59-year-old woman with multiple comorbidities including HTN, chronic diastolic heart failure, antiphospholipid antibody syndrome, systemic lupus erythematosus, morbid obesity with lymphedema, venous stasis with a chronic venous stasis ulcers, history of PE/DVT status post IVC filter, history of ITP and history of major depressive disorder who was admitted to [facility] on 01/04 because of hypertensive urgency. While in the hospital, she was noticed to have bilateral lower extremity wounds for which she follows closely with Wound Care and Infectious Disease at [facility]. On presentation, except for her high blood pressure, the rest of the vitals were within normal limits. CTA of both lower extremities showed diffuse skin thicken ing with subcutaneous edema and fluid in both lower extremities with a scattered wounds. But no new or acute pathologies. Blood workup was mainly impressive for mild leukocytosis of 11.9 (ANC 8.9) and elevated troponin. Superficial swab culture of 1 of the leg wounds (unidentified leg) growing Pseudomonas so far. ID team was consulted for further assessment and to help with antibiotics if needed. Allergies Allergy/AdvReac Type Severity Reaction Status Date / Time heparin Allergy Severe HIT R/O Verified 01/04/25 17:13 from last hospital admission - rather was dx w/ ITP amlodipine Allergy Intermediate ITCHY RASH Verified 01/04/25 17:13 doxycycline Allergy Intermediate ITCHY RASH Verified 01/04/25 17:13 polymyxin B Allergy Intermediate ITCHY RASH Verified 01/04/25 17:13 Pork/Porcine Containing Allergy Intermediate ITCHY RASH Verified 01/04/25 17:13 Products vancomycin Allergy Intermediate RASH Verified 01/04/25 17:13 tetracycline Allergy Mild RASH, Verified 01/04/25 17:13 PRURITIS bacitracin Allergy Unknown Unknown Verified 01/04/25 17:13 sulfamethoxazole AdvReac Intermediate precipitates Verified 01/04/25 17:13 [From Bactrim] lupus per Rheumatology trimethoprim [From Bactrim] AdvReac Intermediate precipitates Verified 01/04/25 17:13 lupus per Rheumatology Home Medications Medication Instructions Recorded Confirmed Type acetaminophen 500 mg tablet 1,000 mg PO Q8H PRN Pain 01/05/18 01/04/25 History (Tylenol Extra Strength) apixaban 5 mg tablet (Eliquis) 5 mg PO BID 01/05/18 01/04/25 History fluticasone propionate 50 2 sprays intranasal DAILY 01/05/18 01/04/25 History mcg/actuation nasal spray,suspension (Flonase Allergy Relief) folic acid 1 mg tablet 1 mg PO QAM 01/05/18 01/04/25 History hydroxychloroquine 200 mg tablet 400 mg PO HS 01/05/18 01/04/25 History (Plaquenil) multivitamin with minerals 1 cap PO QAM 01/05/18 01/04/25 History prednisone 5 mg tablet 5 mg PO QAM 01/05/18 01/04/25 History sertraline 100 mg tablet (Zoloft) 100 mg PO QAM 01/05/18 01/04/25 History sodium chloride 0.65 % nasal spray 2 sprays intranasal DIRECTED 01/05/18 01/04/25 History aerosol (Saline Nasal) PRN Nasal Congestion trazodone 50 mg tablet 100 mg PO HS 01/05/18 01/04/25 History metoprolol succinate 25 mg 25 mg PO BID #0 tabs 02/28/20 01/04/25 Rx tablet,extended release 24 hr omeprazole 20 mg capsule,delayed 20 mg PO DAILYBB 08/26/21 01/04/25 History release belimumab 400 mg intravenous 1,200 mg IV UD 10/08/21 01/04/25 History solution (Benlysta) acetic acid 0.25 % irrigation 0 ml intravesical BID 01/04/25 01/04/25 History solution calcium 500 mg (as 1 tab PO DAILY 01/04/25 01/04/25 History carbonate)-vitamin D3 3.125 mcg (125 unit) tablet diphenhydramine HCl 25 mg capsule 25 mg PO Q6H PRN NEEDED 01/04/25 01/04/25 History (Benadryl) losartan 100 mg tablet 100 mg PO DAILY 01/04/25 01/04/25 History Patient History Medical History (Updated 01/05/25 @ 16:03 by Hansel Delaney MD) Systemic lupus erythematosus Protein C deficiency Lupus 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 positive Infection of wound due to methicillin resistant Staphylococcus aureus (MRSA) SVT (supraventricular tachycardia) History of MRSA infection Obesity COVID-19 Respiratory failure with hypoxia Acute dyspnea Pneumonia due to COVID-19 virus Acute hypoxemic respiratory failure DVT prophylaxis SLE (systemic lupus erythematosus) Cough Nasal congestion Toenail deformity MRSA infection Proteus infection Allergy to multiple antibiotics Chest pain Nausea & vomiting Abscess of pulp of tooth Swelling of submandibular region Facial infection Mandibular abscess Petechiae Hypertension, uncontrolled Pancytopenia Protein S deficiency Pulmonary embolism Ovarian cyst Hyperlipidemia Chaim filter in place Diabetes DVT (deep venous thrombosis) HTN (hypertension) Surgical History (Updated 01/05/25 @ 14:52 by PAKO Whaley) S/P appendectomy Hx of oral surgery (04/13/24) p I&D Right submandibular space(Right) - Romeo Guthrie DMD s Extraction Teeth x10 - Romeo Guthrie DMD History of inferior vena caval filter placement History of dilatation and curettage H/O tooth extraction S/P hysterectomy S/P cholecystectomy S/P section H/O exploratory laparotomy H/O hernia repair Family History Mother Colorectal cancer Pulmonary embolism Grandfather Cancer Social History Smoking Status: Never smoker Second Hand Exposure: No; Do You Dip or Chew Tobacco: No; Tobacco Cessation Education Requested by Patient: No Hx Alcohol Use: No Hx Substance Use: No Preferred Language: Kyrgyz Communication Ability: Effective Electric Tool Repairer Required: No Beliefs That Will Affect Care: None marital status: Single Current Living Situation: Family Current Living Situation Comment: lives at home w/ daughter Other Information That Helps Us Care for You: No Feels Safe at Home: Yes Safety Concerns: Feels Safe At This Time Assistive Devices: None Review of Systems Negative except for what was mentioned in the H&P. Physical Exam Could not be performed given that the encounter was conducted via TeleMed. Results & Data Vital Signs (Past 12 Hours) Vital Signs Temp Pulse Pulse Resp BP Pulse Ox O2 Del Method 01/05/25 15:59 36.7 C 78 20 114/72 94 Room Air 01/05/25 14:12 78 01/05/25 11:36 36.7 C 71 18 145/72 H 96 Room Air 01/05/25 10:43 Room Air 01/05/25 10:13 78 01/05/25 08:06 36.8 C 84 18 143/62 H 98 Room Air 01/05/25 05:17 36.7 C 94 H 18 117/64 97 Room Air Laboratory Results Microbiology: 01/04: 2 sets of blood culture negative to date 01/04: Superficial wound culture from the leg (non identified leg) growing Pseudomonas aeruginosa Diagnostic Findings Imaging: CT angiogram of both lower extremities on 01/04: Diffuse skin thickening with subcutaneous edema and fluid in both lower extremities with scattered wounds. No active extravasation or drainable/organized fluid collection is identified.
[2025-01-05] MEDS ORDERED: DAPTOmycin 600 MG in SYRINGE 0 ML IV SCH (18:00)
--- NOTE | 2025-01-06 05:49 | Electrocardiogram Report ---
Test Reason : Blood Pressure : */* mmHG Vent. Rate : 86 BPM Atrial Rate : 86 BPM P-R Int : 126 ms QRS Dur : 104 ms QT Int : 386 ms P-R-T Axes : 28 17 25 degrees QTcB Int : 461 ms Normal sinus rhythm Poor R wave progression, consider anterior OH vs. lead placement vs. LVH Abnormal ECG When compared with ECG of 13-Apr-2024 05:11, No significant change was found Confirmed by Benjamin King ([id number]) on 01/06/2025 5:48:50 AM Referred By: REFERRED SELF Confirmed By: Benjamin King
[2025-01-06 07:03] LABS: Hematocrit (blood only) 31.1 % (37.0-47.0); Hemoglobin 9.9 g/dl (12.0-16.0); Mean Corpuscular Hemoglobin 27.2 pg (25.0-34.0); Mean Corpuscular Volume 85.4 fL (80.0-100.0); Platelet Count 372 K/uL (130-400); RDW Standard Deviation 53.4 fL (36.4-46.3); Red Blood Count 3.64 M/uL (4.20-5.40); White Blood Count 7.23 K/ul (4.8-10.8)
[2025-01-06 07:22] LABS: Anion Gap 6.0 (3-11); Blood Urea Nitrogen 19.0 mg/dl (6-23); Calcium 8.9 mg/dl (8.6-10.3); Carbon Dioxide 24.0 mmol/L (21-32); Chloride 110.0 mmol/L (98-107); Creatinine Clr Calc Pharmacy 109.1 ml/min; Glucose 88.0 mg/dl (70-99(Fasting)); Potassium 4.1 mmol/L (3.5-5.1); Sodium 140.0 mmol/L (136-145)
[2025-01-06 11:53] VITALS: RESP 18
[2025-01-06 15:14] VITALS: BP 117/79; PULSE 78; TEMP 98.4; O2SAT 96
--- NOTE | 2025-01-06 15:30 | Discharge Summary ---
Discharge Summary Date of Service January 06, 2025 Principal Dx & Hospital Course #1 = Principal Diagnosis (1) Venous stasis ulcers of both lower extremities: (2) Pseudomonas infection: (3) Hypertensive urgency: (4) SLE (systemic lupus erythematosus related syndrome): (5) History of pulmonary embolism: (6) GERD (gastroesophageal reflux disease): (7) Depression: Plan 59 year old female with PMH significant for hyperlipidemia, hypertension, history of SVT, chronic diastolic CHF, venous stasis ulcers of both lower extremities, bilateral lower leg cellulitis, history of antiphospholipid antibody syndrome, history of thrombocytopenia, history of SLE, history of lymphedema, history of PE, history of DVT, status post IVC filter, history of ITP, history of depression, long-term steroid user who was admitted from 01/04-01/06/2025 for hypertension and ongoing lower extremity wounds. Bilateral lower extremity wounds Chronic wounds for 2.5 years Follows with wound clinic and ID weekly and has HH nurse for dressing changes CTA lower extremity without stenosis; diffuse skin thickening with subcutaneous edema and fluid with scattered wounds Wound culture prelim growing pseudomonas, pasteurella, staph aureus, bacteroides fragilis - per ID superficial swab is not reliable and chronic wounds will always be colonized with multiple organisms Blood culture prelim no growth ID recommends NO antibiotics Wound care instructions: -Clean bilateral legs with normal saline, pat dry with gauze -Apply aquacel ag to open draining areas, cover with abd pads, secure with kerlix -Change daily and as needed for excess drainage -Elevate legs -Follow up with Dr Diaz as scheduled at [facility] for wound care Hypertensive urgency, resolved Presented with BPs 190-200s/90-100s Resolved with resumption of patient's home BP meds. Patient counseled about need for med compliance Continue home losartan and metoprolol succinate History of antiphospholipid antibody syndrome History of DVT and PE s/p IVC filter Continue Eliquis History of SLE Continue prednisone and plaquenil GERD Continue PPI Depression Continue sertraline and trazodone Patient seen in collaboration with Dr Borja. Please see addendum. Notes For Next Care Provider 59 year old female with significant PMH who was admitted at [facility] from 01/04- 01/06/25 with hypertensive urgency and bilateral lower extremity wounds. Received one dose of IV labetalol and blood pressures returned to normal. Encouraged patient to take blood pressure medications as prescribed. Patient was seen by Infectious Disease and [facility] for chronic bilateral lower extremity wounds. ID recommends no antibiotics as discussed above and wound care recommends daily dressing changes as detailed above. Patient should continue to follow up at [facility] for Wound Care and ID. Medication Changes From Visit None Admission HPI Per Admitting Provider 59-year-old female with past medical history significant for hyperlipidemia, hypertension, history of SVT, chronic diastolic CHF, venous stasis ulcers of b oth lower extremities, bilateral lower leg cellulitis, history of antiphospholipid antibody syndrome, history of thrombocytopenia, history of SLE, history of lymphedema, history of PE, history of DVT, status post IVC filter, history of ITP, history of depression, long-term steroid user who lives at home with her daughter and ambulates without support comes because of hypertensive urgency and also ongoing lower extremity wounds. Patient says she is having ongoing lower extremity wounds for last 2 and half years and follows with wound clinic every week. She also has home health nurse who comes couple of times a week. When the home health nurse came today her blood pressure was elevated and was advised come to the ER. Patient also says she is having on and off fevers for last 1 week. Has pain in lower extremities. She is following with wound care and ID. As per patient ,was placed on Augmentin for 20 days by ID and couple of tablets left. Since she is on Augmentin she is having some diarrhea. Denies any bloody stools or black stools. Micturating okay. Denies any abdominal pain. No nausea or vomiting. No chest pains. Has shortness of breath on exertion. No back pain. Has headache. Vision is blurry. No headache. No runny nose. Has some sore throat. No cough. Appetite is okay. Currently resting comfortably and hemodynamically stable. Past medical history. As mentioned above. Past surgical history. . Colonoscopy. Exploratory laparotomy. IVC filter placement. Total abdominal hysterectomy with removal of tubes. Social history. No smoking. No alcohol. No drug use. Family history. Mother had colon cancer. Mother had DVT. Admission Exam Per Admitting Provider General- Not in distress. Head- atraumatic Eyes- PERRL. ENT- oropharynx clear Neck- supple, no JVD. Lungs- clear to auscultation no wheezing or crackles. Heart- regular rhythm; no murmur, no gallop. Abdomen- normal bowel sounds, soft, nontender, no distension. Extremities- b/l lower extremity wounds. right leg in dressing. left leg below knee wounds with full thickness skin loss Neuro- alert, oriented PERRL, no facial palsy; no dysarthria; moves extremities Discharge Exam General/Psych: WD/WN, sitting up in bed, NAD, conversing easily Head: normocephalic, atraumatic Eyes: normal inspection, PERRL, conjunctivae pink ENT: external ear and nose normal, oropharynx normal Neck: normal visual inspection, trachea midline Respiratory: normal respiratory effort, lungs clear to auscultation, no wheeze/rales/rhonchi, no accessory muscle use Cardiovascular: regular rate and rhythm, no murmur/rub/gallop, no JVD Extremities: no cyanosis or clubbing, normal peripheral pulses, no BLE edema Abdomen/GI: normal bowel sounds, soft, nontender Neurologic/MSK: A+Ox3, motor strength 5/5, moves all extremities Skin: no rashes, normal color, warm and dry; bilateral lower legs with gauze wraps c/d/i Updated Medication List Medication Instructions Recorded Confirmed Type acetaminophen 500 mg tablet 1,000 mg PO Q8H PRN Pain 01/05/18 01/04/25 History (Tylenol Extra Strength) apixaban 5 mg tablet (Eliquis) 5 mg PO BID 01/05/18 01/04/25 History fluticasone propionate 50 2 sprays intranasal DAILY 01/05/18 01/04/25 History mcg/actuation nasal spray,suspension (Flonase Allergy Relief) folic acid 1 mg tablet 1 mg PO QAM 01/05/18 01/04/25 History hydroxychloroquine 200 mg tablet 400 mg PO HS 01/05/18 01/04/25 History (Plaquenil) multivitamin with minerals 1 cap PO QAM 01/05/18 01/04/25 History prednisone 5 mg tablet 5 mg PO QAM 01/05/18 01/04/25 History sertraline 100 mg tablet (Zoloft) 100 mg PO QAM 01/05/18 01/04/25 History sodium chloride 0.65 % nasal spray 2 sprays intranasal DIRECTED 01/05/18 01/04/25 History aerosol (Saline Nasal) PRN Nasal Congestion trazodone 50 mg tablet 100 mg PO HS 01/05/18 01/04/25 History metoprolol succinate 25 mg 25 mg PO BID #0 tabs 02/28/20 01/04/25 Rx tablet,extended release 24 hr omeprazole 20 mg capsule,delayed 20 mg PO DAILYBB 08/26/21 01/04/25 History release belimumab 400 mg intravenous 1,200 mg IV UD 10/08/21 01/04/25 History solution (Benlysta) acetic acid 0.25 % irrigation 0 ml intravesical BID 01/04/25 01/04/25 History solution calcium 500 mg (as 1 tab PO DAILY 01/04/25 01/04/25 History carbonate)-vitamin D3 3.125 mcg (125 unit) tablet diphenhydramine HCl 25 mg capsule 25 mg PO Q6H PRN NEEDED 01/04/25 01/04/25 History (Benadryl) losartan 100 mg tablet 100 mg PO DAILY 01/04/25 01/04/25 History Hospital Stay Data Consultations 01/04/25 20:04 ED Decision to Admit Stat 01/05/25 08:00 Consult Infectious Diseases Routine Diagnostic Imagining Performed Chest X-Ray 01/04/25 16:22 Clinical History: Shortness of breath Technique: PA and lateral views of the chest were obtained Comparison is made to the prior examination dated 04/11/2024 Findings: There are no confluent pulmonary infiltrates. The heart size is within normal limits. No right pleural effusion or pneumothorax is seen. There is a small left pleural effusion No fracture is noted. No foreign body is seen Impression: Small left pleural effusion ACT 112: Positive. There are findings on this exam that require communication between the performing entity and the patient following Patient Test Result Information Act ([place] ACT 112) guidelines. Electronically signed by Riely Peña 01-04-2025 4:52 PM Lower Extremity CTA 01/04/25 16:49 CT ANGIOGRAM LEFT LOWER EXTREMITY WITH CONTRAST: HISTORY: TECHNIQUE: CT angiogram of the left lower extremity was obtained with intravenous contrast. Coronal and sagittal reformats were created. IV CONTRAST: 100 mL of OMNIPAQUE 300 COMPARISON: FINDINGS: There is no hemodynamically significant stenosis to the arterial system supplying the left lower extremity. Three-vessel runoff is seen. There is diffuse skin thickening with subcutaneous edema and fluid in the left lower extremity with scattered wounds. No active extravasation or drainable/organized fluid collection is identified. No displaced acute osseous process identified. 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 Three-vessel runoff is seen. Diffuse skin thickening with subcutaneous edema and fluid in the left lower extremity with scattered wounds. No active extravasation or drainable/organized fluid collection is identified. Electronically signed by Bud Apple 01-04-2025 7:32 PM Lower Extremity CTA 01/04/25 16:49 CT ANGIOGRAM RIGHT LOWER EXTREMITY WITH CONTRAST: HISTORY: PAIN TECHNIQUE: CT angiogram of the right lower extremity was obtained with intravenous contrast. Coronal and sagittal reformats were created. IV CONTRAST: 100 mL of OMNIPAQUE 300 COMPARISON: None. FINDINGS: There is no hemodynamically significant stenosis to the arterial system supplying the right lower extremity. Three-vessel runoff is seen. There is diffuse skin thickening with subcutaneous edema and fluid in the right lower extremity with scattered wounds. No active extravasation or drainable/organized fluid collection is identified. No displaced acute osseous process identified. 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 Three-vessel runoff is seen. Diffuse skin thickening with subcutaneous edema and fluid in the right lower extremity with scattered wounds. No active extravasation or drainable/organized fluid collection is identified. Electronically signed by Bud Apple 01-04-2025 7:47 PM Pending Results Patient Have Any Pending Studies at Discharge: Yes Discharge Instructions Given to Patient (Per Discharging Provider) You presented to the hospital with high blood pressure and were admitted for this. You received one dose of IV medicine in the Emergency Department and since then, your blood pressure has been normal. We encourage you to continue to take your blood pressure medicine as prescribed and monitor your blood pressure at home. You were evaluated by Infectious Disease for your ongoing leg wounds. Based on your blood work and vital signs, they recommended stopping all antibiotics as they did not feel there was an infection. Our wound care nurse saw you and made recommendations for daily dressing changes. You were provided with a script for the dressing change supplies. Please continue to follow up with the Wound Care and Infectious Disease clinic outpatient. MEDICATION CHANGES: None SUMMARY OF TEST RESULTS: CT scan of lower extremity blood vessels showed no blockages in blood flow PENDING TEST RESULTS: Blood cultures preliminary negative Leg culture preliminary pseudomonas and pasteurella RECOMMENDATIONS FOR FOLLOW-UP: Please follow up with your PCP on 01/12/25 at 8:20am after hospitalization and for monitoring of your blood pressure and to follow up on your culture results Please follow up with the Wound Care and Infectious Disease clinic outpatient as scheduled OTHER INSTRUCTIONS: Seek medical attention if you have: * temperature above 101 * chest pain or trouble breathing * abdominal pain, nausea, vomiting * diarrhea, dark stools or bloody stools * any unanswered questions or concerns Call 911 if symptoms are severe. It has been a pleasure taking care of you. Please take care of yourself. If you have any questions regarding your recent hospitalization please contact [facility] and request Jacinto Buttist @ [phone]. Total Time Total Time Spent Total Time Spent (In Minutes): I spent a total of 35 minutes coordinating, documenting and providing care for this patient excluding time spent in the performance of separately billed services or time spent by another provider/QHP. Supervising Physician Co-Signing Physician Notes Patient seen and examined Agree with findings and plans as detailed by Alexia MIN
== END 2025-01-06 18:50 | disposition home health service (06) | DRG 603 ==
LOC: ED 15:47 → 2E 20:34
DX: N18.30 Chronic kidney disease, stage 3 unspecified; D68.61 Antiphospholipid syndrome; L03.115 Cellulitis of right lower limb; Z95.828 Presence of other vascular implants and grafts; I50.32 Chronic diastolic (congestive) heart failure; E66.01 Morbid (severe) obesity due to excess calories; I89.0 Lymphedema, not elsewhere classified; M32.9 Systemic lupus erythematosus, unspecified; Z88.1 Allergy status to other antibiotic agents; Z88.2 Allergy status to sulfonamides; Z86.711 Personal history of pulmonary embolism; Z68.41 Body mass index [BMI] 40.0-44.9, adult; I83.228 Varicose veins of left lower extremity with both ulcer of other part of lower extremity and inflammation; L03.116 Cellulitis of left lower limb; B96.5 Pseudomonas (aeruginosa) (mallei) (pseudomallei) as the cause of diseases classified elsewhere; I83.218 Varicose veins of right lower extremity with both ulcer of other part of lower extremity and inflammation; I16.0 Hypertensive urgency; E11.22 Type 2 diabetes mellitus with diabetic chronic kidney disease; Z86.718 Personal history of other venous thrombosis and embolism; I16.1 Hypertensive emergency; Z79.01 Long term (current) use of 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s; I13.0 Hypertensive heart and chronic kidney disease with heart failure and stage 1 through stage 4 chronic kidney disease, or unspecified chronic kidney disease; K21.9 Gastro-esophageal reflux disease without esophagitis; E78.5 Hyperlipidemia, unspecified

== ENCOUNTER 2025-01-27 16:56 | Inpatient (IN) ==
--- NOTE | 2025-01-27 18:26 | Emergency Department Note ---
ED Visit Note I was consulted by the Advanced Practice Provider, PAKO Sanders. I personally made/approved the management plan and take responsibility for the patient management. I performed a substantive portion of the visit. This includes the aspects of: -History/Physical/Personally seeing the patient -MDM .
[2025-01-27] MEDS: SODIUM CHLORIDE 0.9% 1,000 ML IV ONE (19:20)
[2025-01-27 19:21] LABS: Hematocrit (blood only) 35.0 % (37.0-47.0); Hemoglobin 10.8 g/dl (12.0-16.0); Immature Granulocytes # (auto) 0.12 K/uL (0.01-0.20); Immature Granulocytes % (auto) 0.9 %; Mean Corpuscular Hemoglobin 26.5 pg (25.0-34.0); Mean Corpuscular Volume 85.8 fL (80.0-100.0); Platelet Count 376 K/uL (130-400); RDW Standard Deviation 51.1 fL (36.4-46.3); Red Blood Count 4.08 M/uL (4.20-5.40); White Blood Count 12.81 K/ul (4.8-10.8)
--- NOTE | 2025-01-27 19:29 | Emergency Department Note ---
Impression & Plan Venous ulcers of both lower extremities, Hypertensive urgency ED Provider Note CHIEF COMPLAINT: Bilateral lower extremity wound infection HISTORY OF PRESENTING ILLNESS: Patient is a 59-year-old female presents to the emergency department today for ongoing bilateral lower extremity wounds that have been draining significantly over the past 24 to 48 hours. Patient has a significant medical history of CKD, chronic venous insufficiency, venous stasis ulcers, hypertension, PE, antiphospholipid antibody syndrome, systolic and diastolic congestive heart failure, anemia, lupus, lymphedema. She does have home nursing that comes in daily to change her dressings and follows with the wound clinic weekly. She reports that over the past 24 to 48 hours she has been soaking through her dressings within a few hours with a very odorous drainage. She also reports difficulty with changing the dressings so frequently as she does not have nursing throughout the day and with the increased pain. Patient denies chest pain, sob, breathing difficulties, abdominal pain, headache, fevers/chills, blood in stool or urine, any recent illness, or any recent travel. REVIEW OF SYSTEMS: See HPI for pertinent positives and pertinent negatives. ALLERGIES: See below MEDICATIONS: See below PAST MEDICAL HISTORY: See below PHYSICAL EXAM: Vital Signs: Reviewed Nurse's notes, Temperature 36 C, vital signs stable. GENERAL: 59-year-old female, in no acute distress, is non toxic in appearance, well-developed, well-nourished. SKIN: The bilateral lower extremity skin is red with large open areas that appear to be healing compared to her previous pictures. They are warm, very tender, and swollen. There is no lymphangitic streaking. There is a significant amount of discharge with odor. There is no fluctuance. There is no induration. HEART: Regular rate and rhythm without murmur, gallop, or rub. LUNGS: Clear to auscultation bilaterally without wheezes, rales, or rhonchi. NEURO: Alert and oriented to person, place, and time. Normal sensation to light and sharp touch. Capillary reflex less than 2 seconds. Peripheral pulses 2 + bilaterally. DIFFERENTIAL DIAGNOSIS: Venous stasis ulcer, infection, sepsis, among others. ED COURSE AND MEDICAL DECISION MAKING: HISTORY FROM INDEPENDENT HISTORIAN: History was provided by the patient and her significant other acts as secondary historian. MONITOR: Continuous combining machine operator: Order was placed for continuous combining machine operator. Patient was placed on the combining machine operator and continuous pulse ox. Patient was noted to be in normal sinus rhythm at an initial rate of 78 bpm per my interpretation. EKG: EKG was interpreted by myself as sinus rhythm with occasional premature ventricular complexes, nonspecific intraventricular block at a rate of 79 bpm. INTERPRETATION OF LABS: I interpreted the labs with full lab results as below in the lab section of this note. Laboratory results pertinent to the emergent complaint are discussed in the MDM section below. The patient was advised to follow up with their PCP and/or specialist(s) for further outpatient monitoring and management of any abnormal results. INTERPRETATION OF IMAGING: Imaging studies were interpreted by myself and read by radiology as per the imaging section of this note. The patient was advised to follow up with their PCP and/or specialist(s) for further outpatient management of any non-emergent abnormal findings. CHRONIC MEDICAL/SOCIAL CONDITIONS AFFECTING CARE: No social concerns were identified as barriers to patients care. EXTERNAL RECORDS REVIEWED: Patient's recent hospitalization from 01/04/2025 to 01/06/2025. ESCALATION OF CARE CONSIDERED: I considered admission on this patient due to the risk of infection, uncontrolled pain managed at home, and hypertension likely related to pain control. CONSULTATIONS: I had a meaningful discussion about this patient with Dr. Fontaine who agrees with my assessment and the treatment plan. I also consulted with Dr. Vicente for admission to the hospital. The patient was accepted. SUMMARY: I examined the patient for complaints of increased drainage from her bilateral lower extremities. A physical exam and history were performed. Nursing notes, EMR, and medication list were personally reviewed. Dressings were removed from the patient bilateral lower extremities for evaluation and cleansed by nursing staff. IV was started and labs drawn. CBC showed a mild leukocytosis with a blood white blood cell count of 12.81. Mild anemia with a hemoglobin of 10.8 which appears to be baseline for the patient. No thrombocytopenia. CMP showed a potassium of 3.0, the patient got 40 mill equivalents p.o. here in the emergency department. BUN was 24 and BUN/creatinine ratio was 23.5, the patient was given 1 L normal saline. Troponin was noted to be 14.1, 2-hour repeat was automatically ordered. CRP was 6.69. Procalcitonin was 0.02. 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 Extensive collateral vessel formation within the pelvis and abdominal wall soft tissues. Atherosclerosis without aortic aneurysm or dissection. I did discuss admission versus discharge with the patient to is preferring admission due to her uncontrolled pain at home and likely infected wounds. The patient was given Zofran 4 mg, morphine 2 mg with effectiveness in nausea and pain. She was also given daptomycin 750 mg and cefepime 2000 mg here in the emergency department. I did consult with hospitalist Dr. Aiken who accepts the patient for admission. DIAGNOSIS: Open wounds to bilateral lower extremities, TREATMENT PLAN/DISCHARGE INSTRUCTIONS: Admission to hospitalist services. The chart was completed utilizing [employer] voice recognition software.Grammatical errors, random word insertions, pronoun errors, and incomplete sentences are an occasional consequence of this system due to software limitations, ambient noise, and hardware issues.Any formal questions or concerns about the content, text, or information contained within the body of this dictation should be directly addressed to the physician for clarification. Past Med/Surg History Problem List (Updated 01/28/25 @ 14:54 by PAKO Coe) Asymptomatic hypertensive urgency Infection (Acute) Open wound of both lower extremities with complication (Acute) Lymphedema Hypertensive urgency (Acute) SLE (systemic lupus erythematosus related syndrome) Lupus (Chronic) Venous ulcers of both lower extremities (Acute) Anemia (Acute) Morbid obesity Leg wound, left (Acute) Leg wound, right (Acute) History of idiopathic thrombocytopenic purpura (Chronic) long-term current use of 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 (Acute) Chronic combined systolic and diastolic CHF (congestive heart failure) Antiphospholipid antibody syndrome History of pulmonary embolism (Chronic) HTN (hypertension) (Chronic) Venous stasis ulcers of both lower extremities (Acute) Chronic venous insufficiency (Chronic) GERD (gastroesophageal reflux disease) (Chronic) Depression (Chronic) CKD (chronic kidney disease), stage III (Chronic) Hypercoagulable state (Chronic) "protein C deficiency, positive phospholipid AB syndrome, positive lupus 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" Medical History Systemic lupus erythematosus Protein C deficiency Lupus 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 positive Infection of wound due to methicillin resistant Staphylococcus aureus (MRSA) SVT (supraventricular tachycardia) History of MRSA infection Obesity COVID-19 Respiratory failure with hypoxia Acute dyspnea Pneumonia due to COVID-19 virus Acute hypoxemic respiratory failure DVT prophylaxis SLE (systemic lupus erythematosus) Cough Nasal congestion Toenail deformity MRSA infection Proteus infection Allergy to multiple antibiotics Chest pain Nausea & vomiting Abscess of pulp of tooth Swelling of submandibular region Facial infection Mandibular abscess Petechiae Hypertension, uncontrolled Pancytopenia Protein S deficiency Pulmonary embolism Ovarian cyst Hyperlipidemia Congress filter in place Diabetes DVT (deep venous thrombosis) HTN (hypertension) Surgical History S/P appendectomy Hx of oral surgery (04/13/24) p I&D Right submandibular space(Right) - Romeo Guthrie DMD s Extraction Teeth x10 - Romeo Guthrie DMD History of inferior vena caval filter placement History of dilatation and curettage H/O tooth extraction S/P hysterectomy S/P cholecystectomy S/P section H/O exploratory laparotomy H/O hernia repair Family History Mother Colorectal cancer Pulmonary embolism Grandfather Cancer Social History Smoking Status: Never smoker Second Hand Exposure: No; Do You Dip or Chew Tobacco: No; Hx Alcohol Use: No Hx Substance Use: No Preferred Language: Yakut Communication Ability: Effective Grinder Hand Required: No Beliefs That Will Affect Care: None marital status: Single Current Living Situation: Family Current Living Situation Comment: Lives w/ Daughter Feels Safe at Home: Yes Assistive Devices: None Allergies Allergies Allergy/AdvReac Type Severity Reaction Status Date / Time heparin Allergy Severe HIT R/O Verified 01/27/25 20:25 from last hospital admission - rather was dx w/ ITP amlodipine Allergy Intermediate ITCHY RASH Verified 01/27/25 20:25 doxycycline Allergy Intermediate ITCHY RASH Verified 01/27/25 20:25 polymyxin B Allergy Intermediate ITCHY RASH Verified 01/27/25 20:25 Pork/Porcine Containing Allergy Intermediate ITCHY RASH Verified 01/27/25 20:25 Products vancomycin Allergy Intermediate RASH Verified 01/27/25 20:25 tetracycline Allergy Mild RASH, Verified 01/27/25 20:25 PRURITIS bacitracin Allergy Unknown Unknown Verified 01/27/25 20:25 sulfamethoxazole AdvReac Intermediate precipitates Verified 01/27/25 20:25 [From Bactrim] lupus per Rheumatology trimethoprim [From Bactrim] AdvReac Intermediate precipitates Verified 01/27/25 20:25 lupus per Rheumatology Home Meds Home Medications Medication Instructions Recorded Confirmed acetaminophen 500 mg tablet 1,000 mg PO Q8H PRN Pain 01/05/18 01/27/25 (Tylenol Extra Strength) apixaban 5 mg tablet (Eliquis) 5 mg PO BID 01/05/18 01/27/25 fluticasone propionate 50 2 sprays intranasal DAILY 01/05/18 01/27/25 mcg/actuation nasal spray,suspension (Flonase Allergy Relief) folic acid 1 mg tablet 1 mg PO QAM 01/05/18 01/27/25 hydroxychloroquine 200 mg tablet 400 mg PO HS 01/05/18 01/27/25 (Plaquenil) multivitamin with minerals 1 cap PO QAM 01/05/18 01/27/25 prednisone 5 mg tablet 5 mg PO QAM 01/05/18 01/27/25 sertraline 100 mg tablet (Zoloft) 100 mg PO QAM 01/05/18 01/27/25 sodium chloride 0.65 % nasal spray 2 sprays intranasal DIRECTED 01/05/18 01/27/25 aerosol (Saline Nasal) PRN Nasal Congestion trazodone 50 mg tablet 100 mg PO HS 01/05/18 01/27/25 omeprazole 20 mg capsule,delayed 20 mg PO DAILYBB 08/26/21 01/27/25 release belimumab 400 mg intravenous 1,200 mg IV UD 10/08/21 01/27/25 solution (Benlysta) acetic acid 0.25 % irrigation 0 ml intravesical BID 01/04/25 01/27/25 solution calcium 500 mg (as 1 tab PO DAILY 01/04/25 01/27/25 carbonate)-vitamin D3 3.125 mcg (125 unit) tablet diphenhydramine HCl 25 mg capsule 25 mg PO Q6H PRN NEEDED 01/04/25 01/27/25 (Benadryl) losartan 50 mg tablet 50 mg PO DAILY 01/27/25 01/27/25 torsemide 10 mg tablet 10 mg PO BID 01/27/25 01/27/25 Previous Rx's Medication Instructions Recorded metoprolol succinate 25 mg 25 mg PO BID #0 tabs 02/28/20 tablet,extended release 24 hr Results & Data (ED) Vital Signs Vital Signs - 24 hr 01/27/25 17:28 01/27/25 17:38 01/27/25 18:50 Temperature 36.0 C L Temperature Source Temporal Artery Scan Pulse Rate 83 76 Pulse Rate [Right Finger] 82 Pulse Rate from SpO2 Sensor Pulse Rhythm [Right Finger] Regular Pulse Strength [Right Finger] Normal Respiratory Rate 17 16 Respiratory Effort / Characteristics Non-Labored Spontaneous Respiratory Depth Normal Respiratory Pattern Blood Pressure 176/95 H Blood Pressure [Right Arm] 161/128 H Blood Pressure Mean 122 Blood Pressure Mean [Right Arm] 139 Blood Pressure Position [Right Arm] Lying Pulse Oximetry 100 100 Oxygen Delivery Method Room Air Room Air Sepsis Recent Fever Within 48 Hours No Sepsis New/Unexplained Change in Mental Status N/A Sepsis Action Taken by Nursing No Action Required 01/27/25 19:09 01/27/25 19:20 01/27/25 19:30 Temperature Temperature Source Pulse Rate 77 79 Pulse Rate [Right Finger] 89 Pulse Rate from SpO2 Sensor 77 79 Pulse Rhythm [Right Finger] Regular Pulse Strength [Right Finger] Normal Respiratory Rate 14 17 19 Respiratory Effort / Characteristics Non-Labored Spontaneous Respiratory Depth Normal Respiratory Pattern Regular Blood Pressure 179/85 H 171/90 H Blood Pressure [Right Arm] 179/85 H Blood Pressure Mean 116 117 Blood Pressure Mean [Right Arm] 116 Blood Pressure Position [Right Arm] Sitting Pulse Oximetry 99 98 99 Oxygen Delivery Method Room Air Room Air Room Air Sepsis Recent Fever Within 48 Hours Sepsis New/Unexplained Change in Mental Status Sepsis Action Taken by Nursing 01/27/25 20:18 01/27/25 21:00 01/27/25 22:00 Temperature Temperature Source Pulse Rate 82 79 82 Pulse Rate [Right Finger] Pulse Rate from SpO2 Sensor 82 79 82 Pulse Rhythm [Right Finger] Pulse Strength [Right Finger] Respiratory Rate 14 13 18 Respiratory Effort / Characteristics Respiratory Depth Respiratory Pattern Blood Pressure 170/78 H 155/85 H 184/90 H Blood Pressure [Right Arm] Blood Pressure Mean 108 108 121 Blood Pressure Mean [Right Arm] Blood Pressure Position [Right Arm] Pulse Oximetry 100 98 98 Oxygen Delivery Method Room Air Room Air Room Air Sepsis Recent Fever Within 48 Hours Sepsis New/Unexplained Change in Mental Status Sepsis Action Taken by Nursing 01/27/25 22:33 01/27/25 23:00 01/27/25 23:27 Temperature Temperature Source Pulse Rate 75 68 81 Pulse Rate [Right Finger] Pulse Rate from SpO2 Sensor 75 68 81 Pulse Rhythm [Right Finger] Pulse Strength [Right Finger] Respiratory Rate 18 18 16 Respiratory Effort / Characteristics Respiratory Depth Respiratory Pattern Blood Pressure 186/105 H 155/104 H 174/65 H Blood Pressure [Right Arm] Blood Pressure Mean 132 121 101 Blood Pressure Mean [Right Arm] Blood Pressure Position [Right Arm] Pulse Oximetry 99 100 99 Oxygen Delivery Method Room Air Room Air Room Air Sepsis Recent Fever Within 48 Hours Sepsis New/Unexplained Change in Mental Status Sepsis Action Taken by Nursing Laboratory Data 01/28/25 Unknown 01/28/25 05:38 Lab Results 01/27/25 01/27/25 Range/Units 18:32 19:03 WBC 12.81 H (4.8-10.8) K/ul RBC 4.08 L (4.20-5.40) M/uL Hgb 10.8 L (12.0-16.0) g/dl Hct 35.0 L (37.0-47.0) % MCV 85.8 (80.0-100.0) fL MCH 26.5 (25.0-34.0) pg MCHC 30.9 L (32.0-36.0) g/dL RDW Std Deviation 51.1 H (36.4-46.3) fL RDW Coeff of Eduardo 16.3 H (11.5-14.5) % Plt Count 376 (130-400) K/uL MPV 9.0 L (9.4-12.4) fL Immature Gran % (Auto) 0.9 % Neut % (Auto) 71.3 % Lymph % (Auto) 17.4 % Meeker % (Auto) 9.1 % Eos % (Auto) 0.8 % Baso % (Auto) 0.5 % Neut # (Auto) 9.14 H (1.40-6.50) K/uL Lymph # (Auto) 2.23 (1.20-3.40) K/uL Meeker # (Auto) 1.16 H (0.11-0.59) K/uL Eos # (Auto) 0.10 (0.00-0.50) K/uL Baso # (Auto) 0.06 (0.00-0.20) K/uL Immature Gran # (Auto) 0.12 (0.01-0.20) K/uL ESR 62 H (0-30) mm/hr Sodium 137 (136-145) mmol/L Potassium 3.0 L (3.5-5.1) mmol/L Chloride 102 (98-107) mmol/L Carbon Dioxide 26 (21-32) mmol/L Anion Gap 9 (3-11) BUN 24 H (6-23) mg/dl Creatinine 1.02 (0.6-1.2) mg/dl Est Cr Clr Drug Dosing 76.7 ml/min eGFR 64.17 BUN/Creatinine Ratio 23.5 H (10-20) Glucose 88 (70-99(Fasting)) mg/dl Calcium 9.1 (8.6-10.3) mg/dl Troponin I High Sens 14.1 H (0-14) pg/ml C-Reactive Protein 6.69 H (0-0.5) mg/dl Procalcitonin 0.02 (0-0.5) ng/ml Blood Type O Positive Antibody Screen NEGATIVE Administered Medications Acetaminophen (Acetaminophen 325 Mg Tab) 650 mg PO QID PRN PRN Reason: pain/fever Stop: 02/26/25 23:28 Last Admin: 01/28/25 13:13 Dose: 650 mg Documented By: JUVENCIO Apixaban (Apixaban 5 Mg Tablet) 5 mg PO BID [facility] Stop: 02/27/25 01:04 Last Admin: 01/28/25 09:14 Dose: 5 mg Documented By: Admin: 01/28/25 01:31 Dose: 5 mg Documented By: ERVIN Calcium/Vitamin D (Calcium 600mg + Vit D 400 Iu Tab) 1 tab PO DAILY ART Stop: 02/27/25 08:59 Last Admin: 01/28/25 09:14 Dose: 1 tab Documented By: CAIT Fluticasone Propionate (Fluticasone Propionate Na Spr 16 Gm Btl) 2 sprays NA DAILY ART Stop: 02/27/25 08:59 Last Admin: 01/28/25 09:14 Dose: 2 sprays Documented By: CAIT Folic Acid (Folic Acid 1 Mg Tab) 1 mg PO QAM ART Stop: 02/27/25 08:59 Last Admin: 01/28/25 09:14 Dose: 1 mg Documented By: CIAT Cefepime HCl (Maxipime 2000mg) 2,000 mg in 20 mls @ 5 mls/min IV Q8H [facility]; Protocol Stop: 02/04/25 03:59 Last Admin: 01/28/25 12:10 Dose: 5 mls/min Documented By: Admin: 01/28/25 04:03 Dose: 5 mls/min Documented By: ERVIN Losartan Potassium (Losartan Potassium 50 Mg Tab) 50 mg PO DAILY [facility] Stop: 02/27/25 08:59 Last Admin: 01/28/25 09:14 Dose: 50 mg Documented By: CAIT Metoprolol Succinate (Metoprolol Succ 25mg Ext Rel Tab) 25 mg PO BID [facility] Stop: 02/27/25 00:14 Last Admin: 01/28/25 09:15 Dose: 25 mg Documented By: Admin: 01/28/25 01:26 Dose: 25 mg Documented By: ERVIN Metronidazole (Metronidazole 500 Mg Tab) 500 mg PO BID [facility]; Protocol Stop: 03/11/25 08:59 Last Admin: 01/28/25 09:17 Dose: 500 mg Documented By: CAIT Multivitamins/Minerals (Cerovite Adv Formula Tab) [facility] [place] Stop: 02/27/25 08:59 Last Admin: 01/28/25 09:17 Dose: 1 tab Documented By: CAIT Oxycodone HCl (Oxycodone Hcl Ir 5 Mg Tab (Immediate Release)) 5 - 10 mg PO QID PRN PRN Reason: Pain Stop: 02/10/25 23:28 Last Admin: 01/28/25 09:22 Dose: 5 mg Documented By: Admin: 01/28/25 04:10 Dose: 10 mg Documented By: ERVIN Pantoprazole Sodium (Pantoprazole 40 Mg Tab) 40 mg PO DAILYBB [facility] Stop: 02/27/25 06:29 Last Admin: 01/28/25 06:30 Dose: 40 mg Documented By: ERVIN Potassium Chloride (Potassium Chloride Crtab 20 Meq Tabcr) 20 meq PO BID [facility] Stop: 02/27/25 08:59 Last Admin: 01/28/25 09:22 Dose: 20 meq Documented By: CAIT Prednisone (Prednisone 5 Mg Tab) 5 mg PO QAM [facility] Stop: 02/27/25 08:59 Last Admin: 01/28/25 09:17 Dose: 5 mg Documented By: CAIT Sertraline HCl (Sertraline Hcl 100 Mg Tablet) 100 mg PO QAM [facility] Stop: 02/27/25 08:59 Last Admin: 01/28/25 09:18 Dose: 100 mg Documented By: CAIT Torsemide (Torsemide 10 Mg Tab) 10 mg PO BID ART Stop: 02/27/25 08:59 Last Admin: 01/28/25 09:18 Dose: 10 mg Documented By: CAIT Trazodone HCl (Trazodone Hcl 100 Mg Tab) 100 mg PO HS ART Stop: 02/27/25 00:14 Last Admin: 01/28/25 01:26 Dose: 100 mg Documented By: ERVIN Discontinued Medications Gadobutrol (Gadobutrol 30ml Vial) 10.7 ml IV ONCE ONE Stop: 01/28/25 10:13 Last Admin: 01/28/25 10:12 Dose: 10.7 ml Documented By: DEVON Sodium Chloride (Nss) 1,000 mls @ 999 mls/hr IV .Q1H1M ONE Stop: 01/27/25 18:50 Last Infusion: 01/27/25 20:33 Dose: Infused Documented By: Admin: 01/27/25 19:20 Dose: 999 mls/hr Documented By: NEISHA Daptomycin 750 mg/ Syringe 15 mls @ 7.5 mls/min IV NOW ONE; Protocol Stop: 01/27/25 20:01 Last Admin: 01/27/25 20:24 Dose: 7.5 mls/min Documented By: FRANCHESKA Cefepime HCl (Maxipime 2000mg) 2,000 mg in 20 mls @ 5 mls/min IV NOW STA; Protocol Stop: 01/27/25 19:53 Last Admin: 01/27/25 20:19 Dose: 5 mls/min Documented By: FRANCHESKA Acetaminophen (Ofirmev) 1,000 mg in 100 mls @ 400 mls/hr IV NOW STA Stop: 01/28/25 00:21 Last Infusion: 01/28/25 01:29 Dose: Infused Documented By: Admin: 01/28/25 00:25 Dose: 400 mls/hr Documented By: FRANCHESKA Ioversol (Optiray 320 125ml) 115 ml IV ONCE ONE Stop: 01/27/25 19:59 Last Admin: 01/27/25 19:58 Dose: 115 ml Documented By: JOHNNIE Losartan Potassium (Losartan Potassium 50 Mg Tab) 50 mg PO NOW STA Stop: 01/27/25 22:39 Last Admin: 01/27/25 23:07 Dose: 50 mg Documented By: FRANCHESKA Morphine Sulfate (Morphine Sulfate 2 Mg/Ml Carp) 2 mg IV NOW STA Stop: 01/27/25 21:20 Last Admin: 01/27/25 21:49 Dose: 2 mg Documented By: FRANCHESKA Ondansetron HCl (Ondansetron Inj 2 Mg/Ml 2 Ml Vial) 4 mg IV NOW STA Stop: 01/27/25 21:20 Last Admin: 01/27/25 21:48 Dose: 4 mg Documented By: FRANCHESKA Potassium Chloride (Potassium Chloride Crtab 20 Meq Tabcr) 40 meq PO NOW STA Stop: 01/27/25 19:51 Last Admin: 01/27/25 20:19 Dose: 40 meq Documented By: FRANCHESKA Potassium Chloride (Potassium Chloride Crtab 20 Meq Tabcr) 40 meq PO NOW STA Stop: 01/27/25 22:39 Last Admin: 01/27/25 23:07 Dose: 40 meq Documented By: FRANCHESKA Imaging Data Radiologist's Impression: Chest X-Ray 01/27/25 17:54 EXAM: Portable AP chest radiograph TECHNIQUE: AP portable radiograph of the chest was obtained. INDICATION: Shortness of breath Comparison: Chest radiograph January 04, 2025 FINDINGS: LINES and TUBES: None. CARDIOVASCULAR: Cardiac silhouette is stably and mildly enlarged in size. LUNGS/PLEURA: No focal consolidation identified. Mild pulmonary vascular congestion and chronic interstitial lung changes are similar to the prior. Redemonstrated blunting of the lateral costophrenic angles. This finding may be due to small pleural fluids or due to diaphragmatic scarring. No discernible pneumothorax. OSSEOUS/OTHER: No displaced acute osseous process identified. IMPRESSION: No focal pulmonary consolidation is identified. Electronically signed by Bud Apple 01-27-2025 7:51 PM Aorta w/Runoff CTA 01/27/25 18:00 Exam(s): CTA RUNOFF (A/P + Sachin Lower Ext) IV Amt: 115 ml optiray 320 EXAM: CT Angiography Abdomen and Pelvis With Intravenous Contrast CLINICAL HISTORY: Reason for exam: venous ulcers, infection. TECHNIQUE: Axial computed tomographic angiography images of the abdomen and pelvis with intravenous contrast. CTDI is 17 mGy and DLP is 2408 mGy-cm. Automated exposure control was utilized for the study. A dose lowering technique was utilized adhering to the principles of ALARA. MIP reconstructed images were created and reviewed. COMPARISON: 06/14/2023 FINDINGS: VASCULATURE: Aorta: Atherosclerosis without aortic aneurysm or dissection. Celiac trunk and mesenteric arteries: No acute findings. No occlusion or significant stenosis. Renal arteries: No acute findings. No occlusion or significant stenosis. Iliac arteries: No acute findings. No occlusion or significant stenosis. 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 Extensive collateral vessel formation within the pelvis and abdominal wall soft tissues. Lung bases: Subsegmental bibasilar atelectasis. ABDOMEN: Liver: Unremarkable. No mass. Gallbladder and bile ducts: Cholecystectomy. No ductal dilation. Pancreas: Unremarkable. No ductal dilation. No mass. Spleen: Unremarkable. No splenomegaly. Adrenals: Unremarkable. No mass. Kidneys and ureters: Unremarkable. No hydronephrosis. No solid mass. Stomach and bowel: No bowel obstruction. Diverticulosis without diverticulitis. PELVIS: Appendix: Appendix not identified. Bladder: Unremarkable. No mass. Reproductive: Hysterectomy. ABDOMEN and PELVIS: Intraperitoneal space: Unremarkable. No significant fluid collection. No free air. Bones/joints: No acute fracture or dislocation. Soft tissues: Unremarkable. Lymph nodes: Unremarkable. No enlarged lymph nodes. IMPRESSION: 1. 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 Extensive collateral vessel formation within the pelvis and abdominal wall soft tissues. 2. Atherosclerosis without aortic aneurysm or dissection. EXAM: CT Angiography of the Right Lower Extremity With Intravenous Contrast CLINICAL HISTORY: Reason for exam: venous ulcers, infection. TECHNIQUE: Axial computed tomographic angiography images of the right lower extremity with intravenous contrast. CTDI is 0 mGy and DLP is 0 mGy-cm. Automated exposure control was utilized for the study. A dose lowering technique was utilized adhering to the principles of ALARA. MIP reconstructed images were created and reviewed. COMPARISON: 01/04/2025 FINDINGS: Common, deep, and superficial femoral arteries are adequately patent. Popliteal artery is adequately patent. There is normal three-vessel arterial runoff to the ankle with flow visible in the dorsalis pedis artery. There is subcutaneous edema and skin thickening of the lower extremity [id number]. There are osteoarthritic changes in the knee. There are no acute osseous findings. IMPRESSION: 1. Adequately patent right lower extremity arteries. 2. Skin thickening and subcutaneous edema [id number], appearing mildly improved from prior. EXAM: CT Angiography of the Left Lower Extremity With Intravenous Contrast CLINICAL HISTORY: Reason for exam: venous ulcers, infection. TECHNIQUE: Axial computed tomographic angiography images of the left lower extremity with intravenous contrast. CTDI is 0 mGy and DLP is 0 mGy-cm. Automated exposure control was utilized for the study. A dose lowering technique was utilized adhering to the principles of ALARA. MIP reconstructed images were created and reviewed. COMPARISON: 01/04/2025 FINDINGS: Common, deep, and superficial femoral arteries are adequately patent. Popliteal artery is adequately patent. There is normal three-vessel arterial runoff to the ankle with flow visible in the dorsalis pedis artery. There is subcutaneous edema and skin thickening of the lower extremity [id number]. There are osteoarthritic changes in the knee. There are no acute osseous findings. IMPRESSION: 1. Adequately patent left lower extremity arteries. 2. Skin thickening and subcutaneous edema [id number], appearing mildly improved from prior. Electronically signed by: Black Vincent M.D. 01/27/25 22:23 PM Discharge Plan Visit Data Chief Complaint: Leg Injury/Pain Stated Complaint: LEGS DRAINING ED Provider: Grover Fontaine ED Midlevel Provider: Virginia Sampson Discharge Problem: Venous ulcers of both lower extremities, Hypertensive urgency Patient Disposition: Admitted As Inpatient Discharge Instructions Interventions: ED Discharge Assessment Last Done: 01/28/25 00:58
[2025-01-27 19:39] LABS: Anion Gap 9.0 (3-11); Blood Urea Nitrogen 24.0 mg/dl (6-23); Calcium 9.1 mg/dl (8.6-10.3); Carbon Dioxide 26.0 mmol/L (21-32); Chloride 102.0 mmol/L (98-107); Creatinine Clr Calc Pharmacy 76.7 ml/min; Glucose 88.0 mg/dl (70-99(Fasting)); Potassium 3.0 mmol/L (3.5-5.1); Sodium 137.0 mmol/L (136-145)
--- NOTE | 2025-01-27 19:52 | XRay Report ---
EXAM: Portable AP chest radiograph TECHNIQUE: AP portable radiograph of the chest was obtained. INDICATION: Shortness of breath Comparison: Chest radiograph January 04, 2025 FINDINGS: LINES and TUBES: None. CARDIOVASCULAR: Cardiac silhouette is stably and mildly enlarged in size. LUNGS/PLEURA: No focal consolidation identified. Mild pulmonary vascular congestion and chronic interstitial lung changes are similar to the prior. Redemonstrated blunting of the lateral costophrenic angles. This finding may be due to small pleural fluids or due to diaphragmatic scarring. No discernible pneumothorax. OSSEOUS/OTHER: No displaced acute osseous process identified. IMPRESSION: No focal pulmonary consolidation is identified. Electronically signed by Bud Apple 01-27-2025 7:51 PM
[2025-01-27] MEDS: OPTIRAY 320 125ml IV ONE (19:58)
[2025-01-27] MEDS: CEFEPIME 2000MG 2,000 MG/20 ML SYR IV STA (20:19)
[2025-01-27] MEDS: POTASSIUM CHLORIDE CRTAB 20 MEQ TABCR PO STA ×2 (20:19→23:07)
[2025-01-27] MEDS: DAPTOmycin 750 MG in SYRINGE 0 ML IV ONE (20:24)
[2025-01-27] MEDS: ONDANSETRON INJ 2 MG/ML 2 ML VIAL IV STA (21:48)
[2025-01-27] MEDS: MoRPHine SULFATE 2 MG/ML CARP IV STA (21:49)
--- NOTE | 2025-01-27 22:24 | CT Scan Report ---
Exam(s): CTA RUNOFF (A/P + Sachin Lower Ext) IV Amt: 115 ml optiray 320 EXAM: CT Angiography Abdomen and Pelvis With Intravenous Contrast CLINICAL HISTORY: Reason for exam: venous ulcers, infection. TECHNIQUE: Axial computed tomographic angiography images of the abdomen and pelvis with intravenous contrast. CTDI is 17 mGy and DLP is 2408 mGy-cm. Automated exposure control was utilized for the study. A dose lowering technique was utilized adhering to the principles of ALARA. MIP reconstructed images were created and reviewed. COMPARISON: 06/14/2023 FINDINGS: VASCULATURE: Aorta: Atherosclerosis without aortic aneurysm or dissection. Celiac trunk and mesenteric arteries: No acute findings. No occlusion or significant stenosis. Renal arteries: No acute findings. No occlusion or significant stenosis. Iliac arteries: No acute findings. No occlusion or significant stenosis. 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 Extensive collateral vessel formation within the pelvis and abdominal wall soft tissues. Lung bases: Subsegmental bibasilar atelectasis. ABDOMEN: Liver: Unremarkable. No mass. Gallbladder and bile ducts: Cholecystectomy. No ductal dilation. Pancreas: Unremarkable. No ductal dilation. No mass. Spleen: Unremarkable. No splenomegaly. Adrenals: Unremarkable. No mass. Kidneys and ureters: Unremarkable. No hydronephrosis. No solid mass. Stomach and bowel: No bowel obstruction. Diverticulosis without diverticulitis. PELVIS: Appendix: Appendix not identified. Bladder: Unremarkable. No mass. Reproductive: Hysterectomy. ABDOMEN and PELVIS: Intraperitoneal space: Unremarkable. No significant fluid collection. No free air. Bones/joints: No acute fracture or dislocation. Soft tissues: Unremarkable. Lymph nodes: Unremarkable. No enlarged lymph nodes. IMPRESSION: 1. 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 Extensive collateral vessel formation within the pelvis and abdominal wall soft tissues. 2. Atherosclerosis without aortic aneurysm or dissection. EXAM: CT Angiography of the Right Lower Extremity With Intravenous Contrast CLINICAL HISTORY: Reason for exam: venous ulcers, infection. TECHNIQUE: Axial computed tomographic angiography images of the right lower extremity with intravenous contrast. CTDI is 0 mGy and DLP is 0 mGy-cm. Automated exposure control was utilized for the study. A dose lowering technique was utilized adhering to the principles of ALARA. MIP reconstructed images were created and reviewed. COMPARISON: 01/04/2025 FINDINGS: Common, deep, and superficial femoral arteries are adequately patent. Popliteal artery is adequately patent. There is normal three-vessel arterial runoff to the ankle with flow visible in the dorsalis pedis artery. There is subcutaneous edema and skin thickening of the lower extremity [id number]. There are osteoarthritic changes in the knee. There are no acute osseous findings. IMPRESSION: 1. Adequately patent right lower extremity arteries. 2. Skin thickening and subcutaneous edema [id number], appearing mildly improved from prior. EXAM: CT Angiography of the Left Lower Extremity With Intravenous Contrast CLINICAL HISTORY: Reason for exam: venous ulcers, infection. TECHNIQUE: Axial computed tomographic angiography images of the left lower extremity with intravenous contrast. CTDI is 0 mGy and DLP is 0 mGy-cm. Automated exposure control was utilized for the study. A dose lowering technique was utilized adhering to the principles of ALARA. MIP reconstructed images were created and reviewed. COMPARISON: 01/04/2025 FINDINGS: Common, deep, and superficial femoral arteries are adequately patent. Popliteal artery is adequately patent. There is normal three-vessel arterial runoff to the ankle with flow visible in the dorsalis pedis artery. There is subcutaneous edema and skin thickening of the lower extremity [id number]. There are osteoarthritic changes in the knee. There are no acute osseous findings. IMPRESSION: 1. Adequately patent left lower extremity arteries. 2. Skin thickening and subcutaneous edema [id number], appearing mildly improved from prior. Electronically signed by: Black Vincent M.D. 01/27/25 22:23 PM
[2025-01-27] MEDS: LOSARTAN POTASSIUM 50 MG TAB PO STA (23:07)
--- NOTE | 2025-01-27 23:27 | History & Physical Report ---
Date of Service January 27, 2025 Assessment & Plan (1) Asymptomatic hypertensive urgency: Plan: Assessment and plan below following discussion of case with ED provider and reviewing patient history/pertinent normal/abnormal diagnostic test results. Hypertensive urgency secondary to bilateral leg pain/recurrent bilateral LE wound infection hx chronic lymphedema/LE venous stasis ulcers Possible sepsis Immunocompromised patient hx SLE on Benlysta and chronic steroid Rx, Rule out osteomyelitis Troponin elevation secondary to uncontrolled BP chronic diastolic heart failure (EF 60%, TTE 2023), euvolemic hx PSVT hypercoagulable state (history recurrent PE/DVT status post IVC filter/antiphospholipid antibody syndrome) on Eliquis chronic anemia, hemoglobin stable despite serosanguineous drainage from LE wounds history of MRSA Steroid-induced hyperglycemia rule out DM Admit to med/tele given uncontrolled BP Analgesia Titrate home BP meds Follow troponin CS, daptomycin, cefepime MRI both lower legs to rule out osteomyelitis Further management contingent on workup results. Wound care nurse consult re: bilateral leg wounds Check hemoglobin A1c DVT prophylaxis. Veodia Full code Text document was generated using [employer] voice recognition software. It may contain grammatical or spelling errors. Kindly contact undersigned for clarification of any documentation item in question. History of Present Illness Chief Complaint: Worsening bilateral leg pain and foul-smelling wound drainage Primary Care Provider: Lorena Jones PA-C History obtained from patient and records. Medical history significant for chronic diastolic heart failure (EF 60%, TTE 2023), PSVT, hypercoagulable state (history recurrent PE/DVT status post IVC filter/antiphospholipid antibody syndrome) on Eliquis, history of ITP, SLE on Benlysta and chronic steroid Rx, chronic lymphedema/LE venous stasis ulcers, chronic anemia (baseline hemoglobin 10), history of MRSA, mood disorder. Recent confinement last month for bilateral LE venous stasis ulcers. Polymicrobial growth on CS. ID recommended no antibiotics. Patient noted foul-smelling serosanguineous drainage from both lower leg wounds 3 days ago. Worsening bilateral leg pain. 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 Patient denies fever, chills. No headache, no chest pain, no SOB. Patient brought to ER by by family for worsening leg wound drainage. Highest SBP of 180s documented at the ER. Medical History as above Surgical History : Cholecystectomy, section, skin grafting, DELMAR, ex lap, IVC filter placement Family History : Colon cancer, DVT Personal/Social history : Non-smoker, no EtOH intake, disabled Allergies Allergy/AdvReac Type Severity Reaction Status Date / Time heparin Allergy Severe HIT R/O Verified 01/27/25 20:25 from last hospital admission - rather was dx w/ ITP amlodipine Allergy Intermediate ITCHY RASH Verified 01/27/25 20:25 doxycycline Allergy Intermediate ITCHY RASH Verified 01/27/25 20:25 polymyxin B Allergy Intermediate ITCHY RASH Verified 01/27/25 20:25 Pork/Porcine Containing Allergy Intermediate ITCHY RASH Verified 01/27/25 20:25 Products vancomycin Allergy Intermediate RASH Verified 01/27/25 20:25 tetracycline Allergy Mild RASH, Verified 01/27/25 20:25 PRURITIS bacitracin Allergy Unknown Unknown Verified 01/27/25 20:25 sulfamethoxazole AdvReac Intermediate precipitates Verified 01/27/25 20:25 [From Bactrim] lupus per Rheumatology trimethoprim [From Bactrim] AdvReac Intermediate precipitates Verified 01/27/25 20:25 lupus per Rheumatology Home Medications Medication Instructions Recorded Confirmed Type acetaminophen 500 mg tablet 1,000 mg PO Q8H PRN Pain 01/05/18 01/27/25 History (Tylenol Extra Strength) apixaban 5 mg tablet (Eliquis) 5 mg PO BID 01/05/18 01/27/25 History fluticasone propionate 50 2 sprays intranasal DAILY 01/05/18 01/27/25 History mcg/actuation nasal spray,suspension (Flonase Allergy Relief) folic acid 1 mg tablet 1 mg PO QAM 01/05/18 01/27/25 History hydroxychloroquine 200 mg tablet 400 mg PO HS 01/05/18 01/27/25 History (Plaquenil) multivitamin with minerals 1 cap PO QAM 01/05/18 01/27/25 History prednisone 5 mg tablet 5 mg PO QAM 01/05/18 01/27/25 History sertraline 100 mg tablet (Zoloft) 100 mg PO QAM 01/05/18 01/27/25 History sodium chloride 0.65 % nasal spray 2 sprays intranasal DIRECTED 01/05/18 01/27/25 History aerosol (Saline Nasal) PRN Nasal Congestion trazodone 50 mg tablet 100 mg PO HS 01/05/18 01/27/25 History metoprolol succinate 25 mg 25 mg PO BID #0 tabs 02/28/20 01/27/25 Rx tablet,extended release 24 hr omeprazole 20 mg capsule,delayed 20 mg PO DAILYBB 08/26/21 01/27/25 History release belimumab 400 mg intravenous 1,200 mg IV UD 10/08/21 01/27/25 History solution (Benlysta) acetic acid 0.25 % irrigation 0 ml intravesical BID 01/04/25 01/27/25 History solution calcium 500 mg (as 1 tab PO DAILY 01/04/25 01/27/25 History carbonate)-vitamin D3 3.125 mcg (125 unit) tablet diphenhydramine HCl 25 mg capsule 25 mg PO Q6H PRN NEEDED 01/04/25 01/27/25 History (Benadryl) losartan 50 mg tablet 50 mg PO DAILY 01/27/25 01/27/25 History torsemide 10 mg tablet 10 mg PO BID 01/27/25 01/27/25 History Past Med/Surg History Problem List (Updated 01/28/25 @ 07:38 by David Vicente MD) Asymptomatic hypertensive urgency Infection (Acute) Open wound of both lower extremities with complication (Acute) Lymphedema Hypertensive urgency SLE (systemic lupus erythematosus related syndrome) Lupus (Chronic) Venous ulcers of both lower extremities (Acute) Anemia (Acute) Morbid obesity Leg wound, left (Acute) Leg wound, right (Acute) History of idiopathic thrombocytopenic purpura (Chronic) MCC current use of 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 (Acute) Chronic combined systolic and diastolic CHF (congestive heart failure) Antiphospholipid antibody syndrome History of pulmonary embolism (Chronic) HTN (hypertension) (Chronic) Venous stasis ulcers of both lower extremities (Acute) Chronic venous insufficiency (Chronic) GERD (gastroesophageal reflux disease) (Chronic) Depression (Chronic) CKD (chronic kidney disease), stage III (Chronic) Hypercoagulable state (Chronic) "protein C deficiency, positive phospholipid AB syndrome, positive lupus 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" Medical History (Updated 01/28/25 @ 07:38 by David Vicente MD) Systemic lupus erythematosus Protein C deficiency Lupus 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 positive Infection of wound due to methicillin resistant Staphylococcus aureus (MRSA) SVT (supraventricular tachycardia) History of MRSA infection Obesity COVID-19 Respiratory failure with hypoxia Acute dyspnea Pneumonia due to COVID-19 virus Acute hypoxemic respiratory failure DVT prophylaxis SLE (systemic lupus erythematosus) Cough Nasal congestion Toenail deformity MRSA infection Proteus infection Allergy to multiple antibiotics Chest pain Nausea & vomiting Abscess of pulp of tooth Swelling of submandibular region Facial infection Mandibular abscess Petechiae Hypertension, uncontrolled Pancytopenia Protein S deficiency Pulmonary embolism Ovarian cyst Hyperlipidemia Rochert filter in place Diabetes DVT (deep venous thrombosis) HTN (hypertension) Surgical History (Updated 01/05/25 @ 14:52 by PAKO Whaley) S/P appendectomy Hx of oral surgery (04/13/24) p I&D Right submandibular space(Right) - Romeo Guthrie DMD s Extraction Teeth x10 - Romeo Guthrie DMD History of inferior vena caval filter placement History of dilatation and curettage H/O tooth extraction S/P hysterectomy S/P cholecystectomy S/P section H/O exploratory laparotomy H/O hernia repair Family History Mother Colorectal cancer Pulmonary embolism Grandfather Cancer Social History Smoking Status: Never smoker Second Hand Exposure: No; Do You Dip or Chew Tobacco: No; Hx Alcohol Use: No Hx Substance Use: No Preferred Language: Iranian Communication Ability: Effective Manager Document Control Required: No Beliefs That Will Affect Care: None marital status: Single Current Living Situation: Family Current Living Situation Comment: Lives w/ Daughter Other Information That Helps Us Care for You: No Feels Safe at Home: Yes Safety Concerns: Feels Safe At This Time Assistive Devices: None Review of Systems Review of Systems: As per HPI, all other systems reviewed and negative Physical Exam Physical Exam: GENERAL: uncomfortable, obese, no respiratory distress SKIN: Pallor, warm HEENT: Pale palpebral conjunctivae, no ptosis, dry buccal mucosa NECK : Supple, short neck, no tenderness CHEST : Decreased breath sounds, no tenderness HEART : RRR, no obvious murmurs ABDOMEN: Some distention, nontender EXTREMITIES : Bilateral LE swelling with tenderness, dressings over both lower legs, palpable pulses, no other conspicuous deformities noted NEUROLOGIC : Coherent, no facial asymmetry, no other gross focality Results & Data Results & Data Vital Signs (Past 12 Hours) Vital Signs Temp Pulse Pulse Resp BP BP Pulse Ox 01/27/25 23:00 68 18 155/104 H 100 01/27/25 22:33 75 18 186/105 H 99 01/27/25 22:00 82 18 184/90 H 98 01/27/25 21:00 79 13 155/85 H 98 01/27/25 20:18 82 14 170/78 H 100 01/27/25 19:30 79 19 171/90 H 99 01/27/25 19:20 89 17 179/85 H 98 01/27/25 19:09 77 14 179/85 H 99 01/27/25 18:50 76 01/27/25 17:38 82 16 161/128 H 100 01/27/25 17:28 36.0 C L 83 17 176/95 H 100 O2 Del Method 01/27/25 23:00 Room Air 01/27/25 22:33 Room Air 01/27/25 22:00 Room Air 01/27/25 21:00 Room Air 01/27/25 20:18 Room Air 01/27/25 19:30 Room Air 01/27/25 19:20 Room Air 01/27/25 19:09 Room Air 01/27/25 18:50 01/27/25 17:38 Room Air 01/27/25 17:28 Room Air Laboratory Results Laboratory Results WBC 12.81 K/ul (4.8-10.8) H 01/27/25 18:32 RBC 4.08 M/uL (4.20-5.40) L 01/27/25 18:32 Hgb 10.8 g/dl (12.0-16.0) L 01/27/25 18:32 Hct 35.0 % (37.0-47.0) L 01/27/25 18:32 MCV 85.8 fL (80.0-100.0) 01/27/25 18:32 MCH 26.5 pg (25.0-34.0) 01/27/25 18:32 MCHC 30.9 g/dL (32.0-36.0) L 01/27/25 18:32 RDW Std Deviation 51.1 fL (36.4-46.3) H 01/27/25 18:32 RDW Coeff of Eduardo 16.3 % (11.5-14.5) H 01/27/25 18:32 Plt Count 376 K/uL (130-400) 01/27/25 18:32 MPV 9.0 fL (9.4-12.4) L 01/27/25 18:32 Immature Gran % (Auto) 0.9 % 01/27/25 18:32 Neut % (Auto) 71.3 % 01/27/25 18:32 Lymph % (Auto) 17.4 % 01/27/25 18:32 [place] % (Auto) 9.1 % 01/27/25 18:32 Eos % (Auto) 0.8 % 01/27/25 18:32 Baso % (Auto) 0.5 % 01/27/25 18:32 Neut # (Auto) 9.14 K/uL (1.40-6.50) H 01/27/25 18:32 Lymph # (Auto) 2.23 K/uL (1.20-3.40) 01/27/25 18:32 [place] # (Auto) 1.16 K/uL (0.11-0.59) H 01/27/25 18:32 Eos # (Auto) 0.10 K/uL (0.00-0.50) 01/27/25 18:32 Baso # (Auto) 0.06 K/uL (0.00-0.20) 01/27/25 18:32 Immature Gran # (Auto) 0.12 K/uL (0.01-0.20) 01/27/25 18:32 ESR 62 mm/hr (0-30) H 01/27/25 18:32 Sodium 137 mmol/L (136-145) 01/27/25 18:32 Potassium 3.0 mmol/L (3.5-5.1) L 01/27/25 18:32 Chloride 102 mmol/L (98-107) 01/27/25 18:32 Carbon Dioxide 26 mmol/L (21-32) 01/27/25 18:32 Anion Gap 9 (3-11) 01/27/25 18:32 BUN 24 mg/dl (6-23) H 01/27/25 18:32 Creatinine 1.02 mg/dl (0.6-1.2) 01/27/25 18:32 Est Cr Clr Drug Dosing 76.7 ml/min 01/27/25 18:32 eGFR 64.17 01/27/25 18:32 BUN/Creatinine Ratio 23.5 (10-20) H 01/27/25 18:32 Glucose 88 mg/dl (70-99(Fasting)) 01/27/25 18:32 Calcium 9.1 mg/dl (8.6-10.3) 01/27/25 18:32 Troponin I High Sens 14.1 pg/ml (0-14) H 01/27/25 18:32 C-Reactive Protein 6.69 mg/dl (0-0.5) H 01/27/25 18:32 Procalcitonin 0.02 ng/ml (0-0.5) 01/27/25 18:32 Impressions Chest X-Ray 01/27/25 17:54 EXAM: Portable AP chest radiograph TECHNIQUE: AP portable radiograph of the chest was obtained. INDICATION: Shortness of breath Comparison: Chest radiograph January 04, 2025 FINDINGS: LINES and TUBES: None. CARDIOVASCULAR: Cardiac silhouette is stably and mildly enlarged in size. LUNGS/PLEURA: No focal consolidation identified. Mild pulmonary vascular congestion and chronic interstitial lung changes are similar to the prior. Redemonstrated blunting of the lateral costophrenic angles. This finding may be due to small pleural fluids or due to diaphragmatic scarring. No discernible pneumothorax. OSSEOUS/OTHER: No displaced acute osseous process identified. IMPRESSION: No focal pulmonary consolidation is identified. Electronically signed by Bud Apple 01-27-2025 7:51 PM Aorta w/Runoff CTA 01/27/25 18:00 Exam(s): CTA RUNOFF (A/P + Sachin Lower Ext) IV Amt: 115 ml optiray 320 EXAM: CT Angiography Abdomen and Pelvis With Intravenous Contrast CLINICAL HISTORY: Reason for exam: venous ulcers, infection. TECHNIQUE: Axial computed tomographic angiography images of the abdomen and pelvis with intravenous contrast. CTDI is 17 mGy and DLP is 2408 mGy-cm. Automated exposure control was utilized for the study. A dose lowering technique was utilized adhering to the principles of ALARA. MIP reconstructed images were created and reviewed. COMPARISON: 06/14/2023 FINDINGS: VASCULATURE: Aorta: Atherosclerosis without aortic aneurysm or dissection. Celiac trunk and mesenteric arteries: No acute findings. No occlusion or significant stenosis. Renal arteries: No acute findings. No occlusion or significant stenosis. Iliac arteries: No acute findings. No occlusion or significant stenosis. 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 Extensive collateral vessel formation within the pelvis and abdominal wall soft tissues. Lung bases: Subsegmental bibasilar atelectasis. ABDOMEN: Liver: Unremarkable. No mass. Gallbladder and bile ducts: Cholecystectomy. No ductal dilation. Pancreas: Unremarkable. No ductal dilation. No mass. Spleen: Unremarkable. No splenomegaly. Adrenals: Unremarkable. No mass. Kidneys and ureters: Unremarkable. No hydronephrosis. No solid mass. Stomach and bowel: No bowel obstruction. Diverticulosis without diverticulitis. PELVIS: Appendix: Appendix not identified. Bladder: Unremarkable. No mass. Reproductive: Hysterectomy. ABDOMEN and PELVIS: Intraperitoneal space: Unremarkable. No significant fluid collection. No free air. Bones/joints: No acute fracture or dislocation. Soft tissues: Unremarkable. Lymph nodes: Unremarkable. No enlarged lymph nodes. IMPRESSION: 1. 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 Extensive collateral vessel formation within the pelvis and abdominal wall soft tissues. 2. Atherosclerosis without aortic aneurysm or dissection. EXAM: CT Angiography of the Right Lower Extremity With Intravenous Contrast CLINICAL HISTORY: Reason for exam: venous ulcers, infection. TECHNIQUE: Axial computed tomographic angiography images of the right lower extremity with intravenous contrast. CTDI is 0 mGy and DLP is 0 mGy-cm. Automated exposure control was utilized for the study. A dose lowering technique was utilized adhering to the principles of ALARA. MIP reconstructed images were created and reviewed. COMPARISON: 01/04/2025 FINDINGS: Common, deep, and superficial femoral arteries are adequately patent. Popliteal artery is adequately patent. There is normal three-vessel arterial runoff to the ankle with flow visible in the dorsalis pedis artery. There is subcutaneous edema and skin thickening of the lower extremity [id number]. There are osteoarthritic changes in the knee. There are no acute osseous findings. IMPRESSION: 1. Adequately patent right lower extremity arteries. 2. Skin thickening and subcutaneous edema [id number], appearing mildly improved from prior. EXAM: CT Angiography of the Left Lower Extremity With Intravenous Contrast CLINICAL HISTORY: Reason for exam: venous ulcers, infection. TECHNIQUE: Axial computed tomographic angiography images of the left lower extremity with intravenous contrast. CTDI is 0 mGy and DLP is 0 mGy-cm. Automated exposure control was utilized for the study. A dose lowering technique was utilized adhering to the principles of ALARA. MIP reconstructed images were created and reviewed. COMPARISON: 01/04/2025 FINDINGS: Common, deep, and superficial femoral arteries are adequately patent. Popliteal artery is adequately patent. There is normal three-vessel arterial runoff to the ankle with flow visible in the dorsalis pedis artery. There is subcutaneous edema and skin thickening of the lower extremity [id number]. There are osteoarthritic changes in the knee. There are no acute osseous findings. IMPRESSION: 1. Adequately patent left lower extremity arteries. 2. Skin thickening and subcutaneous edema [id number], appearing mildly improved from prior. Electronically signed by: Black Vincent M.D. 01/27/25 22:23 PM Diagnostic Findings EKG as per my interpretation :Rate 80, NSR, LAD, LAFB, LVH, T wave inversion inferior leads, PVCs
[2025-01-27] MEDS ORDERED: MoRPHine SULFATE 4 MG/ML 1 ML CARP\\VIAL IV PRN (23:29)
[2025-01-28] MEDS ORDERED: SODIUM CHLORIDE 0.65% NA SOLN 45 ML (OCEAN) PRN (00:11)
[2025-01-28] MEDS: ACETAMINOPHEN 1,000 MG/100 ML VIAL IV STA (00:25)
[2025-01-28 00:28] LABS: Hematocrit (blood only) 36.8 % (37.0-47.0); Hemoglobin 11.6 g/dl (12.0-16.0)
[2025-01-28 00:56] LABS: Creatine Kinase 116.0 U/L (26-192); Magnesium 2.1 mg/dl (1.7-2.4)
[2025-01-28] MEDS: METOPROLOL SUCC 25MG EXT REL TAB PO SCH (01:26)
[2025-01-28] MEDS: APIXABAN 5 MG TABLET PO SCH (01:31)
[2025-01-28] MEDS: CEFEPIME 2000MG 2,000 MG/20 ML SYR IV SCH (04:03)
[2025-01-28 06:07] LABS: Hematocrit (blood only) 31.4 % (37.0-47.0); Hemoglobin 10.2 g/dl (12.0-16.0); Immature Granulocytes # (auto) 0.04 K/uL (0.01-0.20); Immature Granulocytes % (auto) 0.5 %; Mean Corpuscular Hemoglobin 27.7 pg (25.0-34.0); Mean Corpuscular Volume 85.3 fL (80.0-100.0); Platelet Count 279 K/uL (130-400); RDW Standard Deviation 50.3 fL (36.4-46.3); Red Blood Count 3.68 M/uL (4.20-5.40); White Blood Count 8.57 K/ul (4.8-10.8)
[2025-01-28 06:16] LABS: Anion Gap 7.0 (3-11); Blood Urea Nitrogen 18.0 mg/dl (6-23); Calcium 8.2 mg/dl (8.6-10.3); Carbon Dioxide 25.0 mmol/L (21-32); Chloride 107.0 mmol/L (98-107); Creatinine Clr Calc Pharmacy 99.1 ml/min; Glucose 88.0 mg/dl (70-99(Fasting)); Potassium 3.3 mmol/L (3.5-5.1); Sodium 139.0 mmol/L (136-145)
[2025-01-28 09:12] LABS: Hemoglobin A1C 5.7 % (4.5-5.6)
[2025-01-28] MEDS: LOSARTAN POTASSIUM 50 MG TAB PO SCH (09:14)
[2025-01-28] MEDS: CALCIUM 600MG + VIT D 400 IU TAB PO SCH (09:14)
[2025-01-28] MEDS: FLUTICASONE PROPIONATE NA SPR 16 GM BTL SCH (09:14)
[2025-01-28] MEDS: FOLIC ACID 1 MG TAB PO SCH (09:14)
[2025-01-28] MEDS: metroNIDAZOLE 500 MG TAB PO SCH (09:17)
[2025-01-28] MEDS: CEROVITE ADV FORMULA TAB PO SCH (09:17)
[2025-01-28] MEDS: TORSEMIDE 10 MG TAB PO SCH (09:18)
[2025-01-28] MEDS: SERTRALINE HCL 100 MG TABLET PO SCH (09:18)
[2025-01-28] MEDS: POTASSIUM CHLORIDE CRTAB 20 MEQ TABCR PO SCH (09:22)
[2025-01-28] MEDS: GADOBUTROL 30ML VIAL IV ONE (10:12)
--- NOTE | 2025-01-28 11:43 | Hospitalist Progress Note ---
Date of Service January 28, 2025 Assessment & Plan (1) Open wound of both lower extremities with complication: (2) Morbid obesity: (3) Venous ulcers of both lower extremities: (4) SLE (systemic lupus erythematosus related syndrome): (5) Asymptomatic hypertensive urgency: Plan 59F with PMH including chronic LE wounds managed by wound care, chronic diastolic heart failure (EF 60%, TTE 2023), PSVT, hypercoagulable state (history recurrent PE/DVT status post IVC filter/antiphospholipid antibody syndrome) on Eliquis, history of ITP, SLE on Benlysta and chronic steroid Rx, chronic lymphedema/LE venous stasis ulcers, chronic anemia (baseline hemoglobin 10), history of MRSA, mood disorder who presents with increased pain and drainage from her leg wounds x 3 days #B/l LE wounds -Longstanding chronic issue for which she follows weekly with wound care -Increased serous drainage x 3 days -Evaluated for same last month. ID evaluated 01/05 and did not recommend abx at that time -WBC 12.8 on admission ISO chronic prednisone therapy -WBC decreased this AM to 8 -ESR elevated at 62 -CTA without vascular occlusion -No sepsis Plan -Given leukocytosis, elevated ESR and increased drainage, will continue with abx -Reviewed most recent micro history, grew MSSA and PSA among others. History of MRSA -Will continue empiric abx with cefepime, dapto (vanc allergy) and flagyl -Await MRI -May need surgery and/or ID eval in the next few days -Wound care -Pain control #HTN urgency -Resolved -Continue ARB, Toprol and torsemide #SLE+ APLS -Continue home prednisone and plaquenil #History of VTE -Continue eliquis #Hypokalemia -Replace and follow #Elevated trop -Non specific trop elevation -Trops are flat and at basleline -No chest pain -No ACS #Lymphedema #Morbid obesity- complicates all aspects of care. diet and exercise counseling I spent a total of 52 minutes coordinating, documenting, and providing care for this patient excluding time spent in the performance of separately billed services. This included personally reviewing all current laboratories and imagi ng studies, medical reconciliation, outpatient chart review and discussion with specialists Admission and Anticipated Discharge Date Admission Date: January 27, 2025 Subjective Seen in ED c2b. she is c/o b/l leg pain in her wounds. Patient denies F/C, CP, palpitations, SOB, dyspnea, abd pain, N/V/D. endorsing increased serous discharge over the past 3 days. Physical Exam Physical Exam: Vitals and labs reviewed General: obese., NAD HEENT: EOMI, PERRLA Neck: Supple Cardiac: RRR no rubs gallops or murmurs Lungs: CTA no rhonchi wheezing or rales Abd: S NT ND BS positive : no arredondo MSK: Full ROM. No obvious deformities Ext: 1+ b/l LE non pitting Edema Skin: Legs are wrapped bilaterally. serous sicharge from leg wounds. no obvious purulence. some surrounding erythema Neuro: AOx3 No focal deficits. Psych: Normal Mood Results & Data Results & Data Vital Signs (Past 12 Hours) Vital Signs Temp Pulse Pulse Resp BP BP Pulse Ox 01/28/25 09:28 01/28/25 08:54 01/28/25 08:54 36.9 C 62 16 130/70 96 01/28/25 07:13 56 L 01/28/25 06:30 36.7 C 60 15 117/62 96 01/28/25 03:43 36.8 C 77 18 101/45 L 93 01/28/25 02:57 63 01/28/25 01:24 01/28/25 01:24 36.8 C 72 14 130/71 99 01/28/25 00:39 77 14 159/67 H 98 01/28/25 00:00 71 16 146/82 H 98 Pulse Ox O2 Del Method O2 Del Method 01/28/25 09:28 98 Room Air 01/28/25 08:54 96 Room Air 01/28/25 08:54 Room Air 01/28/25 07:13 01/28/25 06:30 Room Air 01/28/25 03:43 Room Air 01/28/25 02:57 01/28/25 01:24 100 Room Air 01/28/25 01:24 Room Air 01/28/25 00:39 Room Air 01/28/25 00:00 Room Air Laboratory Results Abnormal lab results 01/27/25 01/28/25 01/28/25 Range/Units 18:32 00:24 05:38 WBC 12.81 H (4.8-10.8) K/ul RBC 4.08 L 3.68 L (4.20-5.40) M/uL Hgb 10.8 L 10.2 L (12.0-16.0) g/dl Hct 35.0 L 31.4 L (37.0-47.0) % MCHC 30.9 L (32.0-36.0) g/dL RDW Std Deviation 51.1 H 50.3 H (36.4-46.3) fL RDW Coeff of Eduardo 16.3 H 16.1 H (11.5-14.5) % MPV 9.0 L 9.1 L (9.4-12.4) fL Neut # (Auto) 9.14 H (1.40-6.50) K/uL [place] # (Auto) 1.16 H 0.95 H (0.11-0.59) K/uL ESR 62 H (0-30) mm/hr Potassium 3.0 L 3.3 L (3.5-5.1) mmol/L BUN 24 H (6-23) mg/dl BUN/Creatinine Ratio 23.5 H 22.8 H (10-20) Hemoglobin A1c 5.7 H (4.5-5.6) % Calcium 8.2 L (8.6-10.3) mg/dl Troponin I High Sens 14.1 H 19.4 H D 15.8 H (0-14) pg/ml C-Reactive Protein 6.69 H (0-0.5) mg/dl 01/28/ Range/Units Unknown WBC (4.8-10.8) K/ul RBC (4.20-5.40) M/uL Hgb 11.6 L (12.0-16.0) g/dl Hct 36.8 L (37.0-47.0) % MCHC (32.0-36.0) g/dL RDW Std Deviation (36.4-46.3) fL RDW Coeff of Eduardo (11.5-14.5) % MPV (9.4-12.4) fL Neut # (Auto) (1.40-6.50) K/uL [place] # (Auto) (0.11-0.59) K/uL ESR (0-30) mm/hr Potassium (3.5-5.1) mmol/L BUN (6-23) mg/dl BUN/Creatinine Ratio (10-20) Hemoglobin A1c (4.5-5.6) % Calcium (8.6-10.3) mg/dl Troponin I High Sens (0-14) pg/ml C-Reactive Protein (0-0.5) mg/dl
--- NOTE | 2025-01-28 11:50 | Magnetic Resonance Report ---
Clinical history: Repeated wound infections Technique: Multiple T1 and T2-weighted magnetic resonance images were obtained of the right lower leg before and after the administration of 10.7 cc of intravenous gadolinium contrast Findings: No fracture is identified. There is no subluxation or dislocation. There is mild osteoarthritis of the medial compartment of the right knee. No focal osseous lesion is evident. There is no sign of osteomyelitis There is diffuse subcutaneous edema. No clear soft tissue abscess is identified. There is edema as well as increased fat within the medial aspect of the gastrocnemius muscle. No clear enhancement is seen. No clear muscular tear is identified. The remainder of the visualized musculature appears unremarkable. No definite foreign body is seen Impression: 1. Subcutaneous edema that may be due to cellulitis 2. No definite abscess or osteomyelitis 3. Edema and increased fat within the gastrocnemius muscle that could be due to developing atrophy 4. Osteoarthritis of the medial compartment of the right knee ACT 112: Positive. There are findings on this exam that require communication between the performing entity and the patient following Patient Test Result Information Act ([place] ACT 112) guidelines. Electronically signed by Riley Peña 01-28-2025 11:50 AM
--- NOTE | 2025-01-28 11:55 | Magnetic Resonance Report ---
Clinical history: Repeated wound infections Technique: Multiple T1 and T2-weighted magnetic resonance images were obtained of the left lower leg before and after the administration of 10.7 cc of intravenous gadolinium contrast Findings: No fracture is identified. There is no subluxation or dislocation. There is there is no loss and osteophyte formation in the medial compartment of the left knee. No focal osseous lesion is evident. There is no sign of osteomyelitis There is mild subcutaneous edema. No clear soft tissue abscess is identified. Impression: 1. Mild subcutaneous edema that may be due to cellulitis 2. No definite abscess or osteomyelitis 3. Osteoarthritis of the medial compartment of the left knee Electronically signed by Riley Peña 01-28-2025 11:54 AM
--- NOTE | 2025-01-28 11:56 | Electrocardiogram Report ---
Test Reason : Blood Pressure : */* mmHG Vent. Rate : 79 BPM Atrial Rate : 79 BPM P-R Int : 158 ms QRS Dur : 130 ms QT Int : 420 ms P-R-T Axes : 54 -14 7 degrees QTcB Int : 481 ms Sinus rhythm with occasional Premature ventricular complexes Non-specific intra-ventricular conduction block Minimal voltage criteria for LVH, may be normal variant ( Angus product ) Abnormal ECG When compared with ECG of 04-Jan-2025 17:01, Premature ventricular complexes are now Present QRS duration has increased Confirmed by Harleen Massey ([place]) on 01/28/2025 11:56:34 AM Referred By: REFERRED SELF Confirmed By: Harleen Massey
[2025-01-28] MEDS: ACETAMINOPHEN 325 MG TAB PO PRN (13:13)
[2025-01-28] MEDS: DAPTOmycin 600 MG in SYRINGE 0 ML IV SCH (20:49)
[2025-01-28] MEDS: HYDROXYCHLOROQUINE SULFATE 200 MG TAB PO SCH (20:55)
[2025-01-29] MEDS: POTASSIUM CHLORIDE CRTAB 20 MEQ TABCR PO STA (04:09)
[2025-01-29] MEDS: ALBUMIN 25% 25 GM/100 ML VIAL IV ONE (04:21)
[2025-01-29 04:25] LABS: Hematocrit (blood only) 34.3 % (37.0-47.0); Hemoglobin 10.4 g/dl (12.0-16.0); Immature Granulocytes # (auto) 0.08 K/uL (0.01-0.20); Immature Granulocytes % (auto) 0.8 %; Mean Corpuscular Hemoglobin 26.5 pg (25.0-34.0); Mean Corpuscular Volume 87.5 fL (80.0-100.0); Platelet Count 333 K/uL (130-400); RDW Standard Deviation 52.1 fL (36.4-46.3); Red Blood Count 3.92 M/uL (4.20-5.40); White Blood Count 9.45 K/ul (4.8-10.8)
[2025-01-29 04:41] LABS: Anion Gap 5.0 (3-11); Blood Urea Nitrogen 23.0 mg/dl (6-23); Calcium 9.0 mg/dl (8.6-10.3); Carbon Dioxide 27.0 mmol/L (21-32); Chloride 107.0 mmol/L (98-107); Creatinine Clr Calc Pharmacy 71.8 ml/min; Glucose 89.0 mg/dl (70-99(Fasting)); Magnesium 2.1 mg/dl (1.7-2.4); Potassium 4.2 mmol/L (3.5-5.1); Sodium 139.0 mmol/L (136-145)
[2025-01-29] MEDS: dexAMETHasone 4 MG in SYRINGE 0 ML IV ONE (07:11)
--- NOTE | 2025-01-29 10:14 | Hospitalist Progress Note ---
Date of Service January 29, 2025 Assessment & Plan (1) Open wound of both lower extremities with complication: (2) Morbid obesity: (3) Venous ulcers of both lower extremities: (4) SLE (systemic lupus erythematosus related syndrome): (5) Asymptomatic hypertensive urgency: Plan 59F with PMH including chronic LE wounds managed by wound care, chronic diastolic heart failure (EF 60%, TTE 2023), PSVT, hypercoagulable state (history recurrent PE/DVT status post IVC filter/antiphospholipid antibody syndrome) on Eliquis, history of ITP, SLE on Benlysta and chronic steroid Rx, chronic lymphedema/LE venous stasis ulcers, chronic anemia (baseline hemoglobin 10), history of MRSA, mood disorder who presents with increased pain and drainage from her leg wounds x 3 days #B/l LE wounds -Longstanding chronic issue for which she follows weekly with wound care -Increased serous drainage x 3 days -Evaluated for same last month. ID evaluated 01/05 and did not recommend abx at that time -WBC 12.8 on admission ISO chronic prednisone therapy -WBC normal -ESR elevated at 62 -CTA without vascular occlusion -No sepsis -MRI b/l LE without deep tissue or bone infection, possible cellulitis -Suspect cellulitis. low suspicion for deep tissue infection or OM at this point Plan -Given leukocytosis, elevated ESR and increased drainage, will continue with abx -Reviewed most recent micro history, grew MSSA and PSA among others. History of MRSA -Will continue empiric abx with cefepime, dapto (vanc allergy) and flagyl -If blood cultures remain negative, she is afebrile can likely deescalate to PO abx tomorrow -Wound care tomorrow -Possibly DC home tomorrow if she looks well. she has her OP wound care appt on thursday -Pain control #NSVT -Small run of NSVT last night -Electrolytes are optimized -Cardiac monitoring #HTN urgency -Resolved -Continue ARB, Toprol and torsemide #SLE+ APLS -Continue home prednisone and plaquenil #History of VTE -Continue eliquis #Hypokalemia -Replace and follow #Elevated trop -Non specific trop elevation -Trops are flat and at basleline -No chest pain -No ACS #Lymphedema #Morbid obesity- complicates all aspects of care. diet and exercise counseling I spent a total of 58 minutes coordinating, documenting, and providing care for this patient excluding time spent in the performance of separately billed services. This included personally reviewing all current laboratories and imaging studies, medical reconciliation, outpatient chart review and discussion with specialists Admission and Anticipated Discharge Date Admission Date: January 27, 2025 Subjective Feeling much better today than yesterday. Patient denies F/C, CP, palpitations, SOB, dyspnea, abd pain, N/V/D Physical Exam Physical Exam: Vitals and labs reviewed General: obese., NAD HEENT: EOMI, PERRLA Neck: Supple Cardiac: RRR no rubs gallops or murmurs Lungs: CTA no rhonchi wheezing or rales Abd: S NT ND BS positive : no arredondo MSK: Full ROM. No obvious deformities Ext: 1+ b/l LE non pitting Edema Skin: Legs are wrapped bilaterally. serous sicharge from leg wounds. no obvious purulence. some surrounding erythema Neuro: AOx3 No focal deficits. Psych: Normal Mood Results & Data Results & Data Vital Signs (Past 12 Hours) Vital Signs Temp Pulse Pulse Resp BP Pulse Ox Pulse Ox 01/29/25 08:15 100 01/29/25 08:11 35.8 C L 68 18 118/77 100 01/29/25 06:23 37.1 C 65 16 99/64 L 97 01/29/25 05:47 68 01/29/25 03:53 37.1 C 67 16 92/52 L 94 01/29/25 03:20 150 H 01/28/25 23:30 36.9 C 65 16 99/54 L 95 O2 Del Method O2 Del Method O2 Flow Rate O2 Flow Rate 01/29/25 08:15 Room Air 0 01/29/25 08:11 Nasal Cannula 2 01/29/25 06:23 Nasal Cannula 2 01/29/25 05:47 01/29/25 03:53 Room Air 01/29/25 03:20 01/28/25 23:30 Room Air
[2025-01-30 07:00] LABS: Hematocrit (blood only) 31.2 % (37.0-47.0); Hemoglobin 9.9 g/dl (12.0-16.0); Immature Granulocytes # (auto) 0.10 K/uL (0.01-0.20); Immature Granulocytes % (auto) 1.2 %; Mean Corpuscular Hemoglobin 27.5 pg (25.0-34.0); Mean Corpuscular Volume 86.7 fL (80.0-100.0); Platelet Count 313 K/uL (130-400); RDW Standard Deviation 51.7 fL (36.4-46.3); Red Blood Count 3.60 M/uL (4.20-5.40); White Blood Count 8.58 K/ul (4.8-10.8)
[2025-01-30 07:50] LABS: Anion Gap 5.0 (3-11); Calcium 9.1 mg/dl (8.6-10.3); Carbon Dioxide 24.0 mmol/L (21-32); Chloride 112.0 mmol/L (98-107); Potassium 4.9 mmol/L (3.5-5.1); Sodium 141.0 mmol/L (136-145)
[2025-01-30 07:55] LABS: Blood Urea Nitrogen 27.0 mg/dl (6-23); Creatinine Clr Calc Pharmacy 79.0 ml/min; Glucose 102.0 mg/dl (70-99(Fasting))
[2025-01-30 08:10] VITALS: RESP 20
[2025-01-30 15:34] VITALS: TEMP 98.1; O2SAT 94
--- NOTE | 2025-01-30 15:53 | Discharge Summary ---
Discharge Summary Date of Service January 30, 2025 Principal Dx & Hospital Course #1 = Principal Diagnosis (1) Open wound of both lower extremities with complication: (2) Morbid obesity: (3) Venous ulcers of both lower extremities: (4) SLE (systemic lupus erythematosus related syndrome): (5) Asymptomatic hypertensive urgency: Plan 59F with PMH including chronic LE wounds managed by wound care, chronic diastolic heart failure (EF 60%, TTE 2023), PSVT, hypercoagulable state (history recurrent PE/DVT status post IVC filter/antiphospholipid antibody syndrome) on Eliquis, history of ITP, SLE on Benlysta and chronic steroid Rx, chronic lymphedema/LE venous stasis ulcers, chronic anemia (baseline hemoglobin 10), history of MRSA, mood disorder who presents with increased pain and drainage from her leg wounds x 3 days. SHe was started on empiric abx with flagyl, dapto and cefepime based on prior wound culture data. MRI negative for bone or deep tissue infection. Blood cultures are negative. No fevers or leukocytosis. She is feeling well today and wishes to go home. she is not a candidate for SNF. She has a regularly schedule appt with wound care tomorrow and she was instructed on the importance of going. Will send her on keflex x 2 days for a total of 5 days of abx therapy. #B/l LE wounds -Longstanding chronic issue for which she follows weekly with wound care -Increased serous drainage x 3 days -Evaluated for same last month. ID evaluated 01/05 and did not recommend abx at that time -WBC 12.8 on admission ISO chronic prednisone therapy -WBC normal -ESR elevated at 62 -CTA without vascular occlusion -No sepsis -MRI b/l LE without deep tissue or bone infection, possible cellulitis -Suspect cellulitis. low suspicion for deep tissue infection or OM at this point #NSVT -No further episode s -Electrolytes are optimized -Cardiac monitoring #HTN urgency -Resolved -Continue ARB, Toprol and torsemide #SLE+ APLS -Continue home prednisone and plaquenil #History of VTE -Continue eliquis #Hypokalemia -Replace and follow #Elevated trop -Non specific trop elevation -Trops are flat and at basleline -No chest pain -No ACS #Lymphedema #Morbid obesity- complicates all aspects of care. diet and exercise counseling I spent a total of 41 minutes coordinating, documenting, and providing care for this patient excluding time spent in the performance of separately billed services. This included personally reviewing all current laboratories and imaging studies, medical reconciliation, outpatient chart review and discussion with specialists Notes For Next Care Provider Medication Changes From Visit keflex x 2 days Admission HPI Per Admitting Provider History obtained from patient and records. Medical history significant for chronic diastolic heart failure (EF 60%, TTE 2023), PSVT, hypercoagulable state (history recurrent PE/DVT status post IVC filter/antiphospholipid antibody syndrome) on Eliquis, history of ITP, SLE on Benlysta and chronic steroid Rx, chronic lymphedema/LE venous stasis ulcers, chronic anemia (baseline hemoglobin 10), history of MRSA, mood disorder. Recent confinement last month for bilateral LE venous stasis ulcers. Polymicrobial growth on CS. ID recommended no antibiotics. Patient noted foul-smelling serosanguineous drainage from both lower leg wounds 3 days ago. Worsening bilateral leg pain. 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 Patient denies fever, chills. No headache, no chest pain, no SOB. Patient brought to ER by by family for worsening leg wound drainage. Highest SBP of 180s documented at the ER. Medical History as above Surgical History : Cholecystectomy, section, skin grafting, DELMAR, ex lap, IVC filter placement Family History : Colon cancer, DVT Personal/Social history : Non-smoker, no EtOH intake, disabled Discharge Exam Vitals and labs reviewed General: obese., NAD HEENT: EOMI, PERRLA Neck: Supple Cardiac: RRR no rubs gallops or murmurs Lungs: CTA no rhonchi wheezing or rales Abd: S NT ND BS positive : no arredondo MSK: Full ROM. No obvious deformities Ext: 1+ b/l LE non pitting Edema Skin: Legs are wrapped bilaterally. serous sicharge from leg wounds. no obvious purulence. some surrounding erythema Neuro: AOx3 No focal deficits. Psych: Normal Mood Updated Medication List Medication Instructions Recorded Confirmed Type acetaminophen 500 mg tablet 1,000 mg PO Q8H PRN Pain 01/05/18 01/27/25 History (Tylenol Extra Strength) apixaban 5 mg tablet (Eliquis) 5 mg PO BID 01/05/18 01/27/25 History fluticasone propionate 50 2 sprays intranasal DAILY 01/05/18 01/27/25 History mcg/actuation nasal spray,suspension (Flonase Allergy Relief) folic acid 1 mg tablet 1 mg PO QAM 01/05/18 01/27/25 History hydroxychloroquine 200 mg tablet 400 mg PO HS 01/05/18 01/27/25 History (Plaquenil) multivitamin with minerals 1 cap PO QAM 01/05/18 01/27/25 History prednisone 5 mg tablet 5 mg PO QAM 01/05/18 01/27/25 History sertraline 100 mg tablet (Zoloft) 100 mg PO QAM 01/05/18 01/27/25 History sodium chloride 0.65 % nasal spray 2 sprays intranasal DIRECTED 01/05/18 01/27/25 History aerosol (Saline Nasal) PRN Nasal Congestion trazodone 50 mg tablet 100 mg PO HS 01/05/18 01/27/25 History metoprolol succinate 25 mg 25 mg PO BID #0 tabs 02/28/20 01/27/25 Rx tablet,extended release 24 hr omeprazole 20 mg capsule,delayed 20 mg PO DAILYBB 08/26/21 01/27/25 History release belimumab 400 mg intravenous 1,200 mg IV UD 10/08/21 01/27/25 History solution (Benlysta) acetic acid 0.25 % irrigation 0 ml intravesical BID 01/04/25 01/27/25 History solution calcium 500 mg (as 1 tab PO DAILY 01/04/25 01/27/25 History carbonate)-vitamin D3 3.125 mcg (125 unit) tablet diphenhydramine HCl 25 mg capsule 25 mg PO Q6H PRN NEEDED 01/04/25 01/27/25 History (Benadryl) losartan 50 mg tablet 50 mg PO DAILY 01/27/25 01/27/25 History torsemide 10 mg tablet 10 mg PO BID 01/27/25 01/27/25 History cephalexin 500 mg capsule 500 mg PO BID 2 days #4 caps 01/30/25 Rx Hospital Stay Data Consultations 01/27/25 22:39 ED Decision to Admit Stat Diagnostic Imagining Performed 01/27/25 18:00 CTA abd aorta runof w con [CT ang AA runof w inc wo ifdon] Stat 01/28/25 00:08 MRI Lower Leg [MR lower leg LT wo/w con] Routine MRI Lower Leg [MR lower leg RT wo/w con] Routine Pending Results Patient Have Any Pending Studies at Discharge: No Discharge Instructions Given to Patient (Per Discharging Provider) Please follow up with your wound care team tomorrow. Total Time Total Time Spent Total Time Spent (In Minutes): 41
[2025-01-30 16:26] VITALS: BP 126/74
[2025-01-30 16:41] VITALS: PULSE 58
== END 2025-01-30 18:52 | disposition home health service (06) | DRG 300 ==
LOC: ED 16:56 → EDINP 23:28 → 2W 01-28 00:58